=== PATIENT | male | born 1930 | race Caucasian/White ===

== ENCOUNTER 2016-10-09 09:18 | Emergency (ER) | payer MEDICARE ==
[2016-10-09 10:05] LABS: Hematocrit 41 % (42-52); Hemoglobin 14.2 g/dl (14.0-18.0); Mean Corpuscular HGB Conc 34 g/dl (31-36); Mean Corpuscular Hemoglobin 30 pg (27-31); Mean Corpuscular Volume 88 fL (80-94); Mean Platelet Volume 9 um3 (7.4-10.4); Red Blood Count 4.72 10^6/ul (4.0-5.4); Red Cell Distribution Width 14 % (10.5-15)
[2016-10-09] MEDS ORDERED: methylPREDNISolone 125 MG* 2 ML VIAL IV ONE (10:10)
[2016-10-09] MEDS ORDERED: Albuterol/Ipratropium NEB.SOL* Albuterol 2.5 MG/Ipratropium 0.5 MG 3 ML ONE (10:15)
[2016-10-09] MEDS: Albuterol/Ipratropium NEB.SOL* Albuterol 2.5 MG/Ipratropium 0.5 MG 3 ML INH PRN ×2 (10:22→10:36)
[2016-10-09 10:25] LABS: Troponin I 0.03 ng/mL (<0.04)
--- NOTE | 2016-10-09 10:33 | RAD ---
HISTORY: Shortness of breath COMPARISONS: December 03, 2015 VIEWS: 2: Frontal dual-energy and lateral views of the chest. FINDINGS: CARDIOMEDIASTINAL SILHOUETTE: The cardiomediastinal silhouette is normal. LINNEA: The linnea are normal. PLEURA: The costophrenic angles are sharp. No pleural abnormalities are noted. LUNG PARENCHYMA: The lungs are clear. ABDOMEN: The upper abdomen is clear. There is no subphrenic gas. BONES AND SOFT TISSUES: Degenerative changes are noted along the spine. OTHER: None. IMPRESSION: NO ACTIVE CARDIOPULMONARY DISEASE.
[2016-10-09 11:57] LABS: Albumin 3.7 g/dL (3.2-5.2); BUN/Creatinine Ratio 13.9 (8-20); Calcium 9.1 mg/dL (8.6-10.3); EGFR African American 78.1 (>60); EGFR Non-African American 60.7 (>60); Globulin 2.5 g/dL (2-4); Potassium 3.8 mmol/L (3.5-5.0); Total Bilirubin 0.6 mg/dL (0.2-1.0); Total Protein 6.2 g/dL (6.4-8.9)
[2016-10-09 12:26] VITALS: BP 162/75
--- NOTE | 2016-10-09 16:07 | ED ---
Anastasiia Cadet Adam, scribed for Franky Malin MD on 10/09/16 at 1009 . Shortness of Breath - HPI Summary HPI Summary: An 85 y/o male presents to the ED c/o SOB that started yesterday and has gotten progressively worse today. Patient also has a productive cough with white/ yellow sputum. He states he used his albuterol with no alleviation. The SOB is aggravated by exertion but he is still wheezing at rest. Patient has been admitted to the hospital in the past for similar symptoms. His PMHx includes CAD , diabetes, and COPD. FHx is positive for cardiac disease. - History of Current Complaint Chief Complaint: EDRespiratoryDistress Hx Obtained From: Patient, Family/Military Person[employer] Specialist - Onset/Duration: Sudden Onset, Lasting Days - Started yesterday Current Severity: Moderate Dyspnea At: Exertion Aggrevating Factors: Movement, Recumbent Position Alleviating Factors: Nothing Associated Signs & Symptoms: Cough (Productive), Wheezing - Risk Factors Cardiac: CAD, Diabetes - Allergy/Home Medications Allergies/Adverse Reactions: Allergies Allergy/AdvReac Type Severity Reaction Status Date / Time Captopril Allergy Coughing Verified 12/03/15 07:41 Flavocoxid [From Limbrel] Allergy Swelling Verified 12/03/15 07:41 Of Face,Lips,& Throat Pregabalin [From Lyrica] Allergy See Comment Verified 12/03/15 07:41 Tunafish Allergy Swelling Uncoded 12/03/15 07:41 Of Face,Lips,& Throat Home Medications: Home Medications Hydrocortisone 2.5% CREAM(NF) 1 applic TOPICAL BID 10/09/16 [History Confirmed 10/09/16] glipiZIDE TAB.XL* [Glucotrol XL*] 2.5 mg PO DAILY 10/09/16 [History Confirmed ] PMH/Surg Hx/FS Hx/Imm Hx Endocrine/Hematology History: Reports: Hx Anticoagulant Therapy, Hx Diabetes Denies: Hx Anemia Cardiovascular History: Reports: Hx Angina, Hx Coronary Artery Disease, Hx Hypercholesterolemia, Hx Hypertension, Hx Myocardial Infarction, 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 Denies: Hx Congestive Heart Failure Respiratory History: Reports: Hx Asthma, Hx Chronic Obstructive Pulmonary Disease (COPD), Hx Pneumonia, Other Respiratory Problems/Disorders - PNEUMONIA History: Reports: Other Problems/Disorders - Prostate CA Denies: Hx Renal Disease Musculoskeletal History: Reports: Hx Arthritis - HIPS/ HANDS Sensory History: Reports: Hx Cataracts, Hx Contacts or Glasses, Hx Hearing Aid, Hx Hearing Problem, Other Sensory Impairments Denies: Hx Glaucoma, Hx Legally Blind, Hx Macular Degeneration, Hx Vision Problem Opthamlomology History: Reports: Hx Cataracts, Hx Contacts or Glasses, Other Sensory Impairments Denies: Hx Glaucoma, Hx Legally Blind, Hx Macular Degeneration, Hx Vision Problem - Cancer History Cancer Type, 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 1971 RUPTURED APPENDIX [place]. 2003 2 CARDIAC STENTS [place]. 2004 PROSTATE [facility] [place]. 2007 BILATERAL TUBES IN EARS [facility] [place] Hx Anesthesia Reactions: No Infectious Disease History: No Infectious Disease History: Denies: Hx Clostridium Difficile, Hx Hepatitis, Hx Human Immunodeficiency Virus (HIV), Hx of Known/Suspected MRSA, Hx Shingles, Hx Tuberculosis, Hx Known/ Suspected VRE, Hx Known/Suspected VRSA, Traveled Outside the [place] in Last 30 Days - Family History Known Family History: Positive: Cardiac Disease - Social History Occupation: Retired Alcohol Use: None Substance Use Type: Reports: None Hx Tobacco Use: Yes Smoking Status (MU): Former Smoker Type: Cigarettes Have You Smoked in the Last Year: No Review of Systems Constitutional: Negative Negative: Fever, Chills Eyes: Negative Negative: Erythema ENT: Negative Negative: Sore Throat Cardiovascular: Negative Negative: Chest Pain Positive: Shortness Of Breath, Cough - White/yellow sputum Gastrointestinal: Negative Negative: Abdominal Pain, Vomiting, Nausea Genitourinary: Negative Negative: dysuria, hematuria Musculoskeletal: Negative Negative: Myalgia Skin: Negative Negative: Rash Neurological: Negative, Other - Negative: Dizziness Psychological: Normal All Other Systems Reviewed And Are Negative: Yes Physical Exam - Summary Physical Exam Summary: Constitutional: Well-developed, Well-nourished, Alert. (-) Distressed Skin: Warm, Dry HENT: Normocephalic; Atraumatic Eyes: Conjunctiva normal Neck: Musculoskeletal ROM normal neck. (-) JVD, (-) Stridor, (-) Tracheal deviation Cardio: Rhythm regular, rate normal, Heart sounds normal; Intact distal pulses; The pedal pulses are 2+ and symmetric. Radial pulses are 2+ and symmetric. (-) Murmur Pulmonary/Chest wall: Effort normal. (-) Respiratory distress, Expiratory wheezes, (-) Rales Abd: Soft, (-) Tenderness, (-) Distension, (-) Guarding, (-) Rebound Musculoskeletal: (-) Edema Lymph: (-) Cervical adenopathy Neuro: Alert, Oriented x3 Psych: Mood and affect Normal Vital Signs On Initial Exam: Initial Vitals Temp Pulse Resp BP Pulse Ox 96.2 F 76 30 146/68 98 10/09/16 09:19 10/09/16 09:19 10/09/16 09:19 10/09/16 09:19 10/09/16 09:19 - [place] Coma Scale Coma Scale Total: 15 Diagnostics - Vital Signs Vital Signs Temp Pulse Resp BP Pulse Ox 10/09/16 09:40 74 95 10/09/16 09:39 152/82 10/09/16 09:19 96.2 F 76 30 146/68 98 - Laboratory Result Diagrams: 10/09/16 09:50 10/09/16 09:50 Lab Statement: Any lab studies that have been ordered have been reviewed, and results considered in the medical decision making process. - Radiology CXR Xray Interpretation: No Acute Changes Radiology Interpretation Completed By: Radiologist - EKG 09:30 Cardiac Rate: NL - 74 EKG Rhythm: Sinus Rhythm EKG Interpretation: RBBB. Prolonged MS-interval. No STEMI Re-Evaluation - Re-Evaluation First Eval Re-Evaluation Time: 11:50 Change: Improved Comment: Patient states breathing treatments were effective. Course/Dx - Course Assessment/Plan: pt ambulated well on pulse oximetry. He will be discharged home with COPD exacerbation. - Diagnoses Provider Diagnoses: COPD exacerbation Discharge - Discharge Plan Condition: Improved Disposition: HOME Prescriptions: Albuterol 2.5MG/3ML (0.083%)* [Ventolin 2.5 MG/3 ML NEB.FAVIAN*] 2.5 mg INH Q4H PRN #60 neb.favian PRN Reason: Cough predniSONE TAB* [Deltasone TAB*] 50 mg PO DAILY #5 tab Referrals: Ed Blevins MD [Primary Care Provider] - 2 Days Additional Instructions: Return to the emergency department for changing or worsening symptoms The documentation as recorded by the Anastasiia herman Adam accurately reflects the service I personally performed and the decisions made by me, Franky Malin MD.
== END 2016-10-09 12:46 | disposition home or self-care (01) ==
LOC: ED 09:18
DX: J44.1 Chronic obstructive pulmonary disease with (acute) exacerbation (principal); R06.02 Shortness of breath; Z87.891 Personal history of nicotine dependence; R05 Cough
CPT/HCPCS: 36415; 71020; 80053; 83605; 83880; 84484; 85025; 85610; 87040; 93005; 94640; 99283; A9270-GY; J2930

== ENCOUNTER 2016-10-11 16:56 | Inpatient (IN) | payer MEDICARE ==
[2016-10-11] MEDS ORDERED: NS 0.9% 1000 ML* 1,000 ML IV ONE (17:13)
[2016-10-11] MEDS ORDERED: Albuterol/Ipratropium NEB.SOL* Albuterol 2.5 MG/Ipratropium 0.5 MG 3 ML INH ONE (17:13)
[2016-10-11] MEDS ORDERED: methylPREDNISolone 125 MG* 2 ML VIAL IV ONE (17:13)
[2016-10-11 17:32] LABS: Hematocrit 34 % (42-52); Hemoglobin 11.2 g/dl (14.0-18.0); Mean Corpuscular HGB Conc 33 g/dl (31-36); Mean Corpuscular Hemoglobin 30 pg (27-31); Mean Corpuscular Volume 90 fL (80-94); Mean Platelet Volume 9 um3 (7.4-10.4); Red Blood Count 3.77 10^6/ul (4.0-5.4); Red Cell Distribution Width 15 % (10.5-15)
--- NOTE | 2016-10-11 17:44 | RAD ---
Indication: Shortness of breath. History of tobacco use and COPD. Cardiac disease with valvular disease. Comparison: October 09, 2016 chest radiograph and December 03, 2015 CT. Technique: Upright AP 1737 hours Report: No alveolar consolidation, focal pulmonary lesion, pleural effusion, pneumothorax. Accounting for AP technique the heart, pulmonary vasculature, and mediastinal contours are unremarkable. IMPRESSION: No evidence for pneumonia or pulmonary edema.
[2016-10-11 17:45] LABS: Albumin 3.3 g/dL (3.2-5.2); BUN/Creatinine Ratio 33.1 (8-20); C Reactive Protein 1.15 mg/L (< 5.00); Calcium 8.3 mg/dL (8.6-10.3); EGFR African American 58.4 (>60); EGFR Non-African American 45.4 (>60); Globulin 1.9 g/dL (2-4); Potassium 5.5 mmol/L (3.5-5.0); Total Bilirubin 0.4 mg/dL (0.2-1.0); Total Protein 5.2 g/dL (6.4-8.9); Troponin I 0.03 ng/mL (<0.04)
[2016-10-11 17:47] LABS: PCO2 Arterial 23 mmHg (35-45)
[2016-10-11] MEDS ORDERED: cefTRIAXone(*) 1 GM in NS 0.9% 50 ML* 50 ML IVPB ONE (17:51)
[2016-10-11] MEDS ORDERED: Azithromycin IV(*) 500 MG in NS 0.9% 250 ML* 250 ML IVPB ONE (17:52)
[2016-10-11] MEDS ORDERED: Insulin REGULAR(*) 1 UNITS UNIT IV PUSH ONE (17:56)
[2016-10-11] MEDS: NS 0.9% 1000 ML* 2,000 ML IV ONE ×2 (18:00→18:25)
[2016-10-11] MEDS ORDERED: Iodixanol* (CONTRAST) 320 MG/ML 100 ML SDV IV ONE (18:03)
--- NOTE | 2016-10-11 19:28 | RAD ---
INDICATION: Shortness of breath. Respiratory distress. Coronary artery disease. COMPARISON: October 11, 2016 chest radiograph and December 03, 2015 CT. TECHNIQUE: Multidetector CT images were obtained from the lung apices to the upper abdomen with 78 mL Omnipaque 300 IV contrast. Pulmonary angiogram protocol. Multiplanar reformation including with maximum intensity projection. REPORT: Respiratory motion artifact. Elevated lung volumes. Mild prominence of the interstitial markings. Areas of air trapping. Minimal basilar dependent atelectasis. 4 mm noncalcified nodule at the posterior segment of the RIGHT upper lobe adjacent to the hilum is grossly unchanged compared with the December 03, 2015 CT accounting for differences in slice selection. The nodule is new compared with a more remote CT of November 23, 2010. Negative for pleural effusion or pneumothorax. Negative for thoracic lymphadenopathy. Mild cardiomegaly. Negative for pericardial effusion. Coronary artery calcifications and multiple stents. Normal diameter thoracic aorta. Negative for dissection of the thoracic aorta. Mildly limited CT pulmonary angiogram due to motion artifact. No compelling filling defects are identified from the main to the segmental and subsegmental pulmonary arteries to indicate pulmonary embolism. Unremarkable Limited images through the upper abdomen. Negative for suspicious osseous lesions. IMPRESSION: 1. No evidence for pulmonary embolism or pneumonia. Stigmata of probable chronic obstructive pulmonary disease. 2. Mild cardiomegaly. No evidence for pulmonary edema. 3. 4 mm noncalcified nodule at the posterior segment of the RIGHT upper lobe while grossly unchanged compared with the December 03, 2015 exam is new compared with a more remote CT of November 23, 2010. Consider reassessment of this nodule with noncontrast CT in 12 months time.
--- NOTE | 2016-10-11 19:47 | HP ---
H&P (Free Text) History and Physical: PCP: Maverick Blevins MD Date/Time of Evaluation: 10/11/2015 194 CC: SOB HPI: Mr Simmons is an 85YO male HX COPD presenting with ~1week of increasing fatigue, cough, & SOB. He was treated at [facility] [place] [facility] 10/09/2016 with steroids and albuterol and discharged. He was doing reasonably well until this afternoon when his SOB worsened. He denies chest pain, N/V/D, F/C, sputum production with cough, palpitations, light-headedness, sweats, or other issues. Evaluation is notable for sepsis (tachycardia, tachypnea, leukocytosis) 2nd acute bronchitis and COPD exacerbation. PMedHx CAD/stent DM2 HTN HLD COPD prostate CA Allergies Captopril Allergy (Verified 12/03/15 07:41) Coughing Flavocoxid [From Limbrel] Allergy (Verified 12/03/15 07:41) Swelling Of Face,Lips,& Throat Pregabalin [From Lyrica] Allergy (Verified 12/03/15 07:41) See Comment tongue burning Tunafish Allergy (Uncoded 12/03/15 07:41) Swelling Of Face,Lips,& Throat Ambulatory Orders Calcium Carbonate CHEW TAB* [Tums*] 1,000 ml PO DAILY 09/04/12 Clopidogrel TAB* [Plavix TAB*] 75 mg PO QAM 09/04/12 Metoprolol Tartrate TAB* [Lopressor TAB*] 25 mg PO BID 09/04/12 Montelukast Sodium TAB* [Singulair TAB*] 10 mg PO QPM 09/04/12 Albuterol HFA INHALER* [Ventolin HFA Inhaler*] 2 puff INH Q6H PRN 11/15/13 Hydrochlorothiazide TAB* [Hydrodiuril TAB*] 25 mg PO DAILY 11/15/13 Irbesartan (NF) [Avapro (NF)] 150 mg PO DAILY 11/15/13 Aspirin EC Low Dose* [Ecotrin EC Low Dose*] 81 mg PO DAILY 12/15/14 Nitroglycerin TAB 0.4 MG* 0.4 mg SL Q5M PRN 12/15/14 Simvastatin TAB(NF) [Zocor 20 MG (NF)] 40 mg PO DAILY 12/15/14 Solifenacin(NF) [Vesicare(NF)] 5 mg PO DAILY 12/15/14 Beclomethasone 80 MCG MDI(NF) [Qvar 80 MCG MDI(NF)] 2 puff INH BID 01/24/15 Cholecalciferol TAB* [Vitamin D TAB*] 2,000 units PO DAILY 01/24/15 Diphenoxylat/Atrop 2.5-0.025M* [Lomotil TAB*] 1 tab PO DAILY PRN 01/24/15 Albuterol 2.5MG/3ML (0.083%)* [Ventolin 2.5 MG/3 ML NEB.FAVIAN*] 2.5 mg INH Q4H PRN #60 neb.favian 10/09/16 Hydrocortisone 2.5% CREAM(NF) 1 applic TOPICAL BID 10/09/16 glipiZIDE TAB.XL* [Glucotrol XL*] 2.5 mg PO DAILY 10/09/16 predniSONE TAB* [Deltasone TAB*] 50 mg PO DAILY #5 tab 10/09/16 PSurgHx cardiac stent x5 adult tympanostomy tubes adult circumcision tonsillectomy appendectomy TURP SocHx: former smoker w/ <15PYHX, denies alcohol and recreational drugs; lives with his ; full code status FamHx: reviewed, non-contributory ROS: as above, otherwise reviewed and all were negative Constitutional: NAD, normally developed, obese elderly white male vitals: Vital Signs Temp 37.0 C 10/11/16 17:27 Pulse 112 10/11/16 18:10 Resp 26 10/11/16 18:10 BP 98/43 10/11/16 17:27 Pulse Ox 100 10/11/16 18:10 Intake & Output 10/10/16 10/11/16 10/11/16 23:59 11:59 23:59 Intake Total 1302 Balance 1302 Weight 175 lb Intake: IV Fluids 1302 HEENM: atraumatic; sclera/conjunctiva: non-icteric/clear; hearing: moderately decreased, [place] hearing aides; oropharynx: clear, mucosa moist Neck: soft tissue: non-tender; thyroid: normal Pulmonary: diminished bilaterally w/ scant B end-expiratory wheeze, fair aeration, no accessory muscle use CV: RR/RR, normal S1S2, no jugular venous distention, 2+ B DP/PT, no edema Abdominal: soft, moderately distended, tympaninic, non-tender, no rebound/ guarding/rigidity, normoactive bowel sounds, no hepatosplenomegaly or masses, no costovertebral angle tenderness Musculoskeletal: general: grossly intact; gait: stable Integumental: normal appearance and texture Psychiatric orientation: AA&O to PPS affect: calm mood: cooperative eye contact: good content: reliable responses: timely insight: good Testing: Lab Results 10/11/16 10/11/16 10/11/16 Range/Units 17:05 17:05 17:05 WBC 17.0 H (3.5-10.8) 10^3/ul RBC 3.77 L (4.0-5.4) 10^6/ul Hgb 11.2 L (14.0-18.0) g/dl Hct 34 L (42-52) % MCV 90 (80-94) fL MCH 30 (27-31) pg MCHC 33 (31-36) g/dl RDW 15 (10.5-15) % Plt Count 302 (150-450) 10^3/ul MPV 9 (7.4-10.4) um3 Neut % (Auto) 88.5 H (38-83) % Lymph % (Auto) 7.1 L (25-47) % Kane % (Auto) 4.2 (1-9) % Eos % (Auto) 0 (0-6) % Baso % (Auto) 0.2 (0-2) % Absolute Neuts (auto) 15.1 H (1.5-7.7) 10^3/ul Absolute Lymphs (auto) 1.2 (1.0-4.8) 10^3/ul Absolute Monos (auto) 0.7 (0-0.8) 10^3/ul Absolute Eos (auto) 0 (0-0.6) 10^3/ul Absolute Basos (auto) 0 (0-0.2) 10^3/ul Absolute Nucleated RBC 0 10^3/ul Nucleated RBC % 0 INR (Anticoag Therapy) (0.89-1.11) ABG pH (7.35-7.45) ABG pCO2 (35-45) mmHg ABG pO2 (80-100) mmHg ABG HCO3 (19-31) mmol/L ABG O2 Saturation (95-98) % ABG Base Excess (-2.0-2.0) Sodium 129 L (133-145) mmol/L Potassium 5.5 H D (3.5-5.0) mmol/L Chloride 98 L (101-111) mmol/L Carbon Dioxide 17 L (22-32) mmol/L Anion Gap 14 H (2-11) mmol/L BUN 49 H (6-24) mg/dL Creatinine 1.48 H (0.67-1.17) mg/dL Est GFR ( Amer) 58.4 (>60) Est GFR (Non-Af Amer) 45.4 (>60) BUN/Creatinine Ratio 33.1 H (8-20) Glucose 491 H (70-100) mg/dL Lactic Acid 6.7 H* (0.5-2.0) mmol/L Calcium 8.3 L (8.6-10.3) mg/dL Total Bilirubin 0.40 (0.2-1.0) mg/dL AST 23 (13-39) U/L ALT 22 (7-52) U/L Alkaline Phosphatase 39 (34-104) U/L Troponin I 0.03 (<0.04) ng/mL C-Reactive Protein 1.15 (< 5.00) mg/L B-Natriuretic Peptide ( - 100) pg/mL Total Protein 5.2 L (6.4-8.9) g/dL Albumin 3.3 (3.2-5.2) g/dL Globulin 1.9 L (2-4) g/dL Albumin/Globulin Ratio 1.7 (1-3) 10/11/16 10/11/16 10/11/16 Range/Units 17:05 17:05 17:40 WBC (3.5-10.8) 10^3/ul RBC (4.0-5.4) 10^6/ul Hgb (14.0-18.0) g/dl Hct (42-52) % MCV (80-94) fL MCH (27-31) pg MCHC (31-36) g/dl RDW (10.5-15) % Plt Count (150-450) 10^3/ul MPV (7.4-10.4) um3 Neut % (Auto) (38-83) % Lymph % (Auto) (25-47) % Kane % (Auto) (1-9) % Eos % (Auto) (0-6) % Baso % (Auto) (0-2) % Absolute Neuts (auto) (1.5-7.7) 10^3/ul Absolute Lymphs (auto) (1.0-4.8) 10^3/ul Absolute Monos (auto) (0-0.8) 10^3/ul Absolute Eos (auto) (0-0.6) 10^3/ul Absolute Basos (auto) (0-0.2) 10^3/ul Absolute Nucleated RBC 10^3/ul Nucleated RBC % INR (Anticoag Therapy) 0.98 (0.89-1.11) ABG pH 7.40 (7.35-7.45) ABG pCO2 23 L (35-45) mmHg ABG pO2 77 L (80-100) mmHg ABG HCO3 17.9 L (19-31) mmol/L ABG O2 Saturation 97.5 (95-98) % ABG Base Excess -9.0 L (-2.0-2.0) Sodium (133-145) mmol/L Potassium (3.5-5.0) mmol/L Chloride (101-111) mmol/L Carbon Dioxide (22-32) mmol/L Anion Gap (2-11) mmol/L BUN (6-24) mg/dL Creatinine (0.67-1.17) mg/dL Est GFR ( Amer) (>60) Est GFR (Non-Af Amer) (>60) BUN/Creatinine Ratio (8-20) Glucose (70-100) mg/dL Lactic Acid (0.5-2.0) mmol/L Calcium (8.6-10.3) mg/dL Total Bilirubin (0.2-1.0) mg/dL AST (13-39) U/L ALT (7-52) U/L Alkaline Phosphatase (34-104) U/L Troponin I (<0.04) ng/mL C-Reactive Protein (< 5.00) mg/L B-Natriuretic Peptide 74 ( - 100) pg/mL Total Protein (6.4-8.9) g/dL Albumin (3.2-5.2) g/dL Globulin (2-4) g/dL Albumin/Globulin Ratio (1-3) ECG, personally reviewed: sinus tachycardia RBBB rate 116, no ischemia CXR, personally reviewed: IMPRESSION: No evidence for pneumonia or pulmonary edema. CTA chest, personally reviewed: IMPRESSION: 1. No evidence for pulmonary embolism or pneumonia. Stigmata of probable chronic obstructive pulmonary disease. 2. Mild cardiomegaly. No evidence for pulmonary edema. 3. 4 mm noncalcified nodule at the posterior segment of the RIGHT upper lobe while grossly unchanged compared with the December 03, 2015 exam is new compared with a more remote CT of November 23, 2010. Consider reassessment of this nodule with noncontrast CT in 12 months time. Impression: 85M presenting with severe sepsis 2nd acute bronchitis & COPD exacerbation DIAGNOSIS & PLAN Primary severe sepsis 2nd acute bronchitis & COPD exacerbation : IVFs : IV azithromycin & ceftriaxone : supplemental oxygen : albuterol nebs : mometasone/salmeterol : tiotropium : guaifenesin : continue montelukast : incentive spirometry : supportive care LELO, suspect pre-renal : IVFs, monitor Secondary CAD/stent : continue aspirin & clopidogrel DM2 : insulin carb ratio diet : correctional protocol : continue glipizide : check A1c HTN : continue irbesartan, & metoprolol : hold HCTZ HLD : continue simvastatin OAB : continue solifenacin Admission Rational: inpatient for sever DVTp: heparin SQ & SCDs Code Status: full HCP:
[2016-10-11] MEDS ORDERED: Ondansetron INJ* 2 MG/ML VIAL IV PRN (19:59)
[2016-10-11] MEDS ORDERED: Acetaminophen TAB* 325 MG PO PRN (19:59)
[2016-10-11] MEDS ORDERED: Melatonin (NF) 3 MG TAB PO PRN (19:59)
--- NOTE | 2016-10-11 20:48 | ED ---
Anastasiia Cadet Adam, scribed for Kevin Waldron MD on 10/11/16 at 1808 . Shortness of Breath - HPI Summary HPI Summary: An 85 y/o male presents to the ED c/o SOB that got worse yesterday with wheezing , tachypnea, and coughing (aggravated by exertion). Patient had difficulty sleeping last night and also has rhinorrhea, sore throat, and lower extremity edema. Per EMS, pt received 2 nebulizer treatments at home and they did not administer any more in the ambulance. He denies any CP. Patient was discharged on 10/09/16 from the ED with similar symptoms and a diagnosis of COPD exacerbation. PMHx includes CAD, COPD, DM, hyperlipidemia, and asthma. FHx is positive for cardiac disease. Pt is a former smoker. - History of Current Complaint Chief Complaint: EDShortnessOfBreath Time Seen by Provider: 10/11/16 16:59 Hx Obtained From: Patient, EMS Onset/Duration: Sudden Onset, Lasting Days - Yesterday Timing: Constant Current Severity: Moderate Dyspnea At: Exertion Aggrevating Factors: Movement Alleviating Factors: Nothing Associated Signs & Symptoms: Cough (Nonproductive), Wheezing, Nasal Congestion, Edema - Lower extremities Related History: Similar Episode - Seen in [facility] [place] ED for COPD exacerbation - Allergy/Home Medications Allergies/Adverse Reactions: Allergies Allergy/AdvReac Type Severity Reaction Status Date / Time Captopril Allergy Coughing Verified 12/03/15 07:41 Flavocoxid [From Limbrel] Allergy Swelling Verified 12/03/15 07:41 Of Face,Lips,& Throat Pregabalin [From Lyrica] Allergy See Comment Verified 12/03/15 07:41 [place] Allergy Swelling Uncoded 12/03/15 07:41 Of Face,Lips,& Throat PMH/Surg Hx/FS Hx/Imm Hx Endocrine/Hematology History: Reports: Hx Anticoagulant Therapy, Hx Diabetes Denies: Hx Anemia Cardiovascular History: Reports: Hx Angina, Hx Coronary Artery Disease, Hx Hypercholesterolemia, Hx Hypertension, Hx Myocardial Infarction, 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 Denies: Hx Congestive Heart Failure Respiratory History: Reports: Hx Asthma, Hx Chronic Obstructive Pulmonary Disease (COPD), Hx Pneumonia, Other Respiratory Problems/Disorders - PNEUMONIA History: Reports: Other Problems/Disorders - Prostate CA Denies: Hx Renal Disease Musculoskeletal History: Reports: Hx Arthritis - HIPS/ HANDS Sensory History: Reports: Hx Cataracts, Hx Contacts or Glasses, Hx Hearing Aid, Hx Hearing Problem, Other Sensory Impairments Denies: Hx Glaucoma, Hx Legally Blind, Hx Macular Degeneration, Hx Vision Problem Opthamlomology History: Reports: Hx Cataracts, Hx Contacts or Glasses, Other Sensory Impairments Denies: Hx Glaucoma, Hx Legally Blind, Hx Macular Degeneration, Hx Vision Problem - Cancer History Cancer Type, 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 1971 RUPTURED APPENDIX [facility]. 2003 2 CARDIAC STENTS [place]. 2004 PROSTATE [facility] [place]. 2007 BILATERAL TUBES IN EARS [facility] [place] Hx Anesthesia Reactions: No Infectious Disease History: No Infectious Disease History: Denies: Hx Clostridium Difficile, Hx Hepatitis, Hx Human Immunodeficiency Virus (HIV), Hx of Known/Suspected MRSA, Hx Shingles, Hx Tuberculosis, Hx Known/ Suspected VRE, Hx Known/Suspected VRSA, Traveled Outside the in Last 30 Days - Family History Known Family History: Positive: Cardiac Disease - Social History Alcohol Use: None Substance Use Type: Reports: None Hx Tobacco Use: Yes Smoking Status (MU): Former Smoker Type: Cigarettes Have You Smoked in the Last Year: No Review of Systems Constitutional: Negative Eyes: Negative ENT: Negative Cardiovascular: Negative Positive: Shortness Of Breath, Cough, Other - wheezing Gastrointestinal: Negative Genitourinary: Negative Positive: Edema - lower extremities Skin: Negative Neurological: Negative Psychological: Normal All Other Systems Reviewed And Are Negative: Yes Physical Exam - Summary Physical Exam Summary: The patient is well-nourished in no acute distress and in no acute pain. The skin is warm and dry and skin color reflects adequate perfusion. Decreased turgor. HEENT: Bilateral hearing aids present. The head is normocephalic and atraumatic. The pupils are equal and reactive. The conjunctivae are clear and without drainage. Nares are patent and without drainage. Mouth reveals moist mucous membranes and the throat is without erythema and exudate. The external ears are intact. The ear canals are patent and without drainage. The tympanic membranes are intact. Neck is supple with full range of motion and non-tender. There are no carotid bruits. There is no neck vein distension. Respiratory: Chest is non-tender. Lungs are clear to auscultation and breath sounds are symmetrical and equal. Tachypneic. Cardiovascular: Heart is tachycardic and regular. There is no murmur or rub auscultated. There is pitting edema in bilateral lower extremities and pulses are symmetrical and equal. Abdomen: The abdomen is soft and non-tender. There are normal bowel sounds heard in all four quadrants and there is no organomegaly palpated. Musculoskeletal: There is no back pain noted. Extremities are non-tender with full range of motion. There is good capillary refill. There is no peripheral edema or calf tenderness elicited. Neurological: Patient is alert and oriented to person, place and time. The patient has symmetrical motor strength in all four extremities. Cranial nerves are grossly intact. Deep tendon reflexes are symmetrical and equal in all four extremities. Psychiatric: The patient has an appropriate affect and does not exhibit any anxiety or depression. Vital Signs On Initial Exam: Initial Vitals Temp Pulse Resp BP Pulse Ox 97.8 F 112 30 113/63 99 10/11/16 17:09 10/11/16 17:09 10/11/16 17:09 10/11/16 17:09 10/11/16 17:09 - [place] Coma Scale Coma Scale Total: 15 Diagnostics - Vital Signs Vital Signs Temp Pulse Resp BP Pulse Ox 10/11/16 17:27 98.6 F 118 18 98/43 95 10/11/16 17:09 97.8 F 112 30 113/63 99 - Laboratory Lab Results: Lab Results 10/11/16 10/11/16 10/11/16 Range/Units 17:05 17:05 17:05 WBC 17.0 H (3.5-10.8) 10^3/ul RBC 3.77 L (4.0-5.4) 10^6/ul Hgb 11.2 L (14.0-18.0) g/dl Hct 34 L (42-52) % MCV 90 (80-94) fL MCH 30 (27-31) pg MCHC 33 (31-36) g/dl RDW 15 (10.5-15) % Plt Count 302 (150-450) 10^3/ul MPV 9 (7.4-10.4) um3 Neut % (Auto) 88.5 H (38-83) % Lymph % (Auto) 7.1 L (25-47) % Jasper % (Auto) 4.2 (1-9) % Eos % (Auto) 0 (0-6) % Baso % (Auto) 0.2 (0-2) % Absolute Neuts (auto) 15.1 H (1.5-7.7) 10^3/ul Absolute Lymphs (auto) 1.2 (1.0-4.8) 10^3/ul Absolute Monos (auto) 0.7 (0-0.8) 10^3/ul Absolute Eos (auto) 0 (0-0.6) 10^3/ul Absolute Basos (auto) 0 (0-0.2) 10^3/ul Absolute Nucleated RBC 0 10^3/ul Nucleated RBC % 0 INR (Anticoag Therapy) (0.89-1.11) ABG pH (7.35-7.45) ABG pCO2 (35-45) mmHg ABG pO2 (80-100) mmHg ABG HCO3 (19-31) mmol/L ABG O2 Saturation (95-98) % ABG Base Excess (-2.0-2.0) Sodium 129 L (133-145) mmol/L Potassium 5.5 H D (3.5-5.0) mmol/L Chloride 98 L (101-111) mmol/L Carbon Dioxide 17 L (22-32) mmol/L Anion Gap 14 H (2-11) mmol/L BUN 49 H (6-24) mg/dL Creatinine 1.48 H (0.67-1.17) mg/dL Est GFR ( Amer) 58.4 (>60) Est GFR (Non-Af Amer) 45.4 (>60) BUN/Creatinine Ratio 33.1 H (8-20) Glucose 491 H (70-100) mg/dL Lactic Acid 6.7 H* (0.5-2.0) mmol/L Calcium 8.3 L (8.6-10.3) mg/dL Total Bilirubin 0.40 (0.2-1.0) mg/dL AST 23 (13-39) U/L ALT 22 (7-52) U/L Alkaline Phosphatase 39 (34-104) U/L Troponin I 0.03 (<0.04) ng/mL C-Reactive Protein 1.15 (< 5.00) mg/L B-Natriuretic Peptide ( - 100) pg/mL Total Protein 5.2 L (6.4-8.9) g/dL Albumin 3.3 (3.2-5.2) g/dL Globulin 1.9 L (2-4) g/dL Albumin/Globulin Ratio 1.7 (1-3) 10/11/16 10/11/16 10/11/16 Range/Units 17:05 17:05 17:40 WBC (3.5-10.8) 10^3/ul RBC (4.0-5.4) 10^6/ul Hgb (14.0-18.0) g/dl Hct (42-52) % MCV (80-94) fL MCH (27-31) pg MCHC (31-36) g/dl RDW (10.5-15) % Plt Count (150-450) 10^3/ul MPV (7.4-10.4) um3 Neut % (Auto) (38-83) % Lymph % (Auto) (25-47) % Jasper % (Auto) (1-9) % Eos % (Auto) (0-6) % Baso % (Auto) (0-2) % Absolute Neuts (auto) (1.5-7.7) 10^3/ul Absolute Lymphs (auto) (1.0-4.8) 10^3/ul Absolute Monos (auto) (0-0.8) 10^3/ul Absolute Eos (auto) (0-0.6) 10^3/ul Absolute Basos (auto) (0-0.2) 10^3/ul Absolute Nucleated RBC 10^3/ul Nucleated RBC % INR (Anticoag Therapy) 0.98 (0.89-1.11) ABG pH 7.40 (7.35-7.45) ABG pCO2 23 L (35-45) mmHg ABG pO2 77 L (80-100) mmHg ABG HCO3 17.9 L (19-31) mmol/L ABG O2 Saturation 97.5 (95-98) % ABG Base Excess -9.0 L (-2.0-2.0) Sodium (133-145) mmol/L Potassium (3.5-5.0) mmol/L Chloride (101-111) mmol/L Carbon Dioxide (22-32) mmol/L Anion Gap (2-11) mmol/L BUN (6-24) mg/dL Creatinine (0.67-1.17) mg/dL Est GFR ( Amer) (>60) Est GFR (Non-Af Amer) (>60) BUN/Creatinine Ratio (8-20) Glucose (70-100) mg/dL Lactic Acid (0.5-2.0) mmol/L Calcium (8.6-10.3) mg/dL Total Bilirubin (0.2-1.0) mg/dL AST (13-39) U/L ALT (7-52) U/L Alkaline Phosphatase (34-104) U/L Troponin I (<0.04) ng/mL C-Reactive Protein (< 5.00) mg/L B-Natriuretic Peptide 74 ( - 100) pg/mL Total Protein (6.4-8.9) g/dL Albumin (3.2-5.2) g/dL Globulin (2-4) g/dL Albumin/Globulin Ratio (1-3) Result Diagrams: 10/11/16 17:05 10/11/16 17:05 Lab Statement: Any lab studies that have been ordered have been reviewed, and results considered in the medical decision making process. - Radiology CXR Xray Interpretation: No Acute Changes Radiology Interpretation Completed By: Radiologist - CT Chest CTA CT Interpretation: No Acute Changes - 1. No evidence for pulmonary embolism or pneumonia. Stigmata of probable chronic obstructive pulmonary disease. 2. Mild cardiomegaly. No evidence for pulmonary edema. 3. 4 mm noncalcified nodule at the posterior segment of the RIGHT upper lobe while grossly unchanged compared with the December 03, 2015 exam is new compared with a more remote CT of November 23, 2010. Consider reassessment of this nodule with noncontrast CT in [address] Interpretation Completed By: Radiologist - EKG 17:14 Cardiac Rate: Tachycardia - 116 EKG Rhythm: Sinus Tachycardia EKG Interpretation: RBBB, Old inferior OK, poor r-wave progression Re-Evaluation - Re-Evaluation First Eval Re-Evaluation Time: 19:00 Change: Worse Comment: Patient wheezing, sob with retractions, tachycardic, tachypneic. Pending CTA read. Course/Dx - Diagnoses Differential Diagnosis/HQI/PQRI: Positive: Bronchitis, CHF, COPD Exacerbation, Pneumonia, Pulmonary Embolism Provider Diagnoses: Acute dyspnea, Dehydration, COPD exacerbation Discharge - Discharge Plan Condition: Stable Disposition: ADMITTED TO [facility] documentation as recorded by the Anastasiia herman Adam accurately reflects the service I personally performed and the decisions made by , Kevin Waldron MD.
[2016-10-11] MEDS ORDERED: Metoprolol Tartrate TAB* 25 MG PO SCH (21:00)
[2016-10-11] MEDS ORDERED: Docusate CAP* 100 MG PO SCH (21:00)
[2016-10-11] MEDS ORDERED: Insulin LISPRO* 1 UNITS UNIT SUBCUT SCH (21:00)
[2016-10-11] MEDS ORDERED: guaiFENesin ER TAB 600 MG PO SCH (21:00)
[2016-10-11 22:06] LABS: BUN/Creatinine Ratio 39.7 (8-20); Calcium 7.1 mg/dL (8.6-10.3); EGFR African American 67.2 (>60); EGFR Non-African American 52.3 (>60); Potassium 4.7 mmol/L (3.5-5.0)
[2016-10-11] MEDS ORDERED: LORazepam INJ* 2 MG/ML 1 ML VIAL ONE (22:22)
[2016-10-11] MEDS: NS 0.9% 1000 ML* 1,000 ML IV SCH (22:33)
[2016-10-11] MEDS ORDERED: Haloperidol INJ IV/IM* 5 MG/ML AMP ONE ×2 (22:44→23:49)
[2016-10-11] MEDS ORDERED: NS 0.9% 1000 ML* 1,000 ML IV SCH (22:45)
[2016-10-11] MEDS: Mometasone/Formoter 200/5 MDI INH SCH (23:09)
[2016-10-11] MEDS ORDERED: Haloperidol INJ IV/IM* 5 MG/ML AMP IM ONE (23:37)
[2016-10-12] MEDS ORDERED: Pantoprazole IV* 40 MG IV ONE
[2016-10-12 00:12] LABS: Hematocrit 25 % (42-52); Hemoglobin 7.8 g/dl (14.0-18.0); Mean Corpuscular HGB Conc 32 g/dl (31-36); Mean Corpuscular Hemoglobin 29 pg (27-31); Mean Corpuscular Volume 93 fL (80-94); Mean Platelet Volume 9 um3 (7.4-10.4); Red Blood Count 2.65 10^6/ul (4.0-5.4); Red Cell Distribution Width 15 % (10.5-15); White Blood Count 12.9 10^3/ul (3.5-10.8)
[2016-10-12] MEDS: Pantoprazole IV* 80 MG in NS 0.9% 250 ML* 250 ML IVPB SCH ×2 (00:14→15:00)
[2016-10-12] MEDS ORDERED: DEXMEDETOMIDINE ONE (00:28)
[2016-10-12] MEDS: Dexmedetomidine* 50 ML IVPB SCH ×5 (00:30→23:57)
[2016-10-12] MEDS: Albuterol 2.5 MG/3 ML NEB.SOL* (0.083%) INH SCH ×2 (00:45→08:21)
[2016-10-12] MEDS ORDERED: Iodixanol* (CONTRAST) 320 MG/ML 100 ML SDV IV ONE (00:49)
--- NOTE | 2016-10-12 02:45 | PN ---
Progress Note - Progress Note Note: After arrival to ICU, Mr Simmons had a large loose melanotic stool. He became much more agitated and received a total of 0.5mg lorazepam IV and 15mg haloperidol. He was unable to give additional information, but his abdominal exam had objectively become significantly tender. He was started on pantoprazole bolus & GTT. A CT abd/pel w/ IV contrast was obtained and read as negative. His lactic acid increased from 6 to 10 after 4L IVFs. HGB dropped from 11 to 7 and 2units pRBCs are ordered. Case was discussed with Abdelrahman Troy MD surgery who agreed to evaluate after the conclusion of his current case.
[2016-10-12] MEDS ORDERED: Piperac/Tazob 3.375 gm in NS* 3.375 GM/100 ML BAG IVPB ONE (03:00)
[2016-10-12] MEDS ORDERED: NS 0.9% 1000 ML* 1,000 ML IV ONE (03:00)
[2016-10-12] MEDS ORDERED: NS 0.9% 500 ML* 500 ML IV ONE (04:00)
[2016-10-12] MEDS: Insulin LISPRO* 1 UNITS UNIT SUBCUT SCH ×6 (04:03→22:27)
[2016-10-12 05:38] LABS: Urine Bilirubin Negative (Negative); Urine Glucose 3+(>=500 mg/dL) (Negative); Urine Nitrite Negative (Negative)
[2016-10-12 05:49] LABS: BUN/Creatinine Ratio 45.3 (8-20); Calcium 6.7 mg/dL (8.6-10.3); EGFR African American 62.8 (>60); EGFR Non-African American 48.8 (>60); Potassium 4.2 mmol/L (3.5-5.0)
[2016-10-12] MEDS ORDERED: CMCS Pantoprazole TAB (NF) 40 MG TAB PO SCH (06:00)
[2016-10-12] MEDS ORDERED: Heparin VIAL(*) 5000 UNITS/ML VIAL (FIVE THOUSAND) SUBCUT SCH (06:00)
--- NOTE | 2016-10-12 07:40 | RAD ---
CLINICAL HISTORY: Melena, sepsis COMPARISON: September 07, 2014 TECHNIQUE: Multiple contiguous axial CT scans were obtained of the abdomen and pelvis after the administration of intravenous contrast. Coronal and sagittal multiplanar reformations are submitted for review. Oral contrast was administered. Delayed images were obtained through the abdomen FINDINGS: Evaluation limited by patient breathing motion artifact and by arm positioning. LUNG BASES: The lung bases are clear. LIVER: The liver is diffusely low in attenuation compared to the spleen. There are no focal hepatic parenchymal masses. BILE DUCTS: There is no intrahepatic or extrahepatic biliary dilatation. GALLBLADDER: The gallbladder is not well visualized secondary to patient breathing motion artifact. PANCREAS: The pancreas is normal, without mass or ductal dilatation. SPLEEN: Normal in size and appearance. UPPER GI TRACT: Evaluation of the gastrointestinal tract is limited by incomplete gastric distention. The upper GI tract is unremarkable. SMALL BOWEL AND MESENTERY: The small bowel is normal in contour, course, and caliber. There is no obstruction or dilatation. COLON: There are multiple diverticula of the sigmoid colon. There is no pericolonic inflammatory change. ADRENALS: Normal bilaterally. KIDNEYS: Simple renal cyst is noted. There is no appreciable hydronephrosis or nephrolithiasis. BLADDER: The bladder is collapsed around a Gonzales catheter PELVIC ORGANS: The pelvic organs are not visualized. AORTA: There is calcific atherosclerotic disease of the abdominal aorta and its branches, without aneurysmal dilatation IVC: Unremarkable LYMPH NODES: There is no lymphadenopathy by size criteria. ABDOMINAL WALL: There is no evidence for abdominal wall hernia. BONES AND SOFT TISSUES: Degenerative changes are noted of the spine OTHER: None IMPRESSION: 1. LIMITED STUDY. 2. DIVERTICULOSIS. 3. FATTY INFILTRATION OF THE LIVER.
[2016-10-12] MEDS: NS 0.9% 1000 ML* 1,000 ML IV SCH (07:54)
--- NOTE | 2016-10-12 08:33 | PN ---
Subjective Date of Service: 10/12/16 Interval History: Pt is unable to tell me how he is feeling. He is on precedex and was resting comfortably, the precedex dose was decreased when I was in the room as he had become mildly bradycardic and now he is restless. The only thing he says is "I want to sit up" and that was garbled. Objective Active Medications: Acetaminophen (Tylenol Tab*) 650 mg PO Q6H PRN PRN Reason: FEVER/PAIN Albuterol (Ventolin 2.5 Mg/3 Ml Neb.Shayla*) 2.5 mg INH Q2H PRN PRN Reason: SOB/WHEEZING Atorvastatin Calcium (Lipitor*) 20 mg PO DAILY LOS Device (Tiotropium Inhaler Device*) 1 each INH 0900 ONE Stop: 10/12/16 09:01 Sodium Chloride (Ns 0.9% 1000 Ml*) 1,000 mls @ 85 mls/hr IV PER RATE [facility] Last Admin: 10/12/16 07:54 Dose: 85 mls/hr Ceftriaxone Sodium 1,000 mg/ (Sodium Chloride) 50 mls @ 200 mls/hr IVPB Q24H LOS Azithromycin 500 mg/ Sodium (Chloride) 250 mls @ 250 mls/hr IVPB Q24H LOS Pantoprazole Sodium 80 mg/ (Sodium Chloride) 250 mls @ 25 mls/hr IVPB Q10H LOS Last Admin: 10/12/16 00:14 Dose: 25 mls/hr Dexmedetomidine HCl (Precedex*) 50 mls @ 3.969 mls/hr IVPB .(Initial Rate) LOS PRN Reason: 0.2 MCG/KG/HR Last Admin: 10/12/16 07:53 Dose: 10.4 mls/hr Piperacillin Sod/Tazobactam Sod (Zosyn 3.375 Gm In Ns Premix*) 3.375 gm in 100 mls @ 25 mls/hr IVPB Q8H LOS Insulin Glargine (Lantus(*)) 5 units SUBCUT Q24H LOS Insulin Human Lispro (Humalog*) 0 units SUBCUT Q4H LOS PRN Reason: Protocol Last Admin: 10/12/16 07:10 Dose: 12 units Methylprednisolone Sodium Succinate (Solu-Medrol*) 40 mg IV Q8H LOS Metoprolol Tartrate (Lopressor Tab*) 25 mg PO BID [facility] Mometasone Furoate/Formoterol Fumar (Dulera 200/5 Mdi*) 2 puff INH BID LOS Last Admin: 10/11/16 23:09 Dose: Not Given Montelukast Sodium (Singulair Tab*) 10 mg PO QPM [facility] Ondansetron HCl (Zofran Inj*) 4 mg IV Q6H PRN PRN Reason: NAUSEA Vital Signs 10/11/16 10/11/16 10/11/16 20:00 20:04 20:15 Temperature Pulse Rate 116 115 Respiratory 22 33 24 Rate Blood Pressure 95/67 (mmHg) O2 Sat by Pulse 99 99 Oximetry 10/11/16 10/11/16 10/11/16 20:30 20:45 21:00 Temperature Pulse Rate 122 111 Respiratory 32 21 22 Rate Blood Pressure 125/78 90/77 (mmHg) O2 Sat by Pulse 99 95 Oximetry 10/11/16 10/11/16 10/11/16 21:15 21:27 21:30 Temperature Pulse Rate 107 123 121 Respiratory 30 31 23 Rate Blood Pressure 96/69 105/65 (mmHg) O2 Sat by Pulse 94 98 99 Oximetry 10/11/16 10/11/16 10/11/16 21:43 21:45 21:56 Temperature Pulse Rate 114 115 118 Respiratory 22 27 19 Rate Blood Pressure 104/66 (mmHg) O2 Sat by Pulse 94 96 98 Oximetry 10/11/16 10/11/16 10/11/16 22:00 22:15 22:30 Temperature 98.5 F Pulse Rate 124 120 122 Respiratory 32 27 23 Rate Blood Pressure 89/73 99/72 111/91 (mmHg) O2 Sat by Pulse 96 96 99 Oximetry 10/11/16 10/11/16 10/11/16 22:33 22:47 23:00 Temperature Pulse Rate 57 42 Respiratory 36 15 34 Rate Blood Pressure 121/72 90/67 (mmHg) O2 Sat by Pulse 72 97 Oximetry 10/11/16 10/11/16 10/11/16 23:02 23:15 23:20 Temperature Pulse Rate 96 Respiratory 22 Rate Blood Pressure 98/68 (mmHg) O2 Sat by Pulse 98 Oximetry 10/11/16 10/11/16 10/12/16 23:30 23:45 00:00 Temperature Pulse Rate 63 86 78 Respiratory 26 29 31 Rate Blood Pressure (mmHg) O2 Sat by Pulse 90 76 62 Oximetry 10/12/16 10/12/16 10/12/16 00:02 00:15 00:30 Temperature 97.7 F Pulse Rate 73 Respiratory 25 24 Rate Blood Pressure (mmHg) O2 Sat by Pulse 100 Oximetry 10/12/16 10/12/16 10/12/16 00:45 01:00 01:15 Temperature Pulse Rate 64 100 Respiratory 28 30 26 Rate Blood Pressure (mmHg) O2 Sat by Pulse 98 100 Oximetry 10/12/16 10/12/16 10/12/16 01:22 01:37 01:40 Temperature Pulse Rate 112 118 113 Respiratory 24 20 21 Rate Blood Pressure 73/42 103/57 (mmHg) O2 Sat by Pulse 100 96 87 Oximetry 10/12/16 10/12/16 10/12/16 01:45 02:00 02:34 Temperature Pulse Rate 88 82 Respiratory 23 28 22 Rate Blood Pressure 85/43 87/51 (mmHg) O2 Sat by Pulse 89 100 Oximetry 10/12/16 10/12/16 10/12/16 02:40 02:45 02:50 Temperature Pulse Rate 86 80 80 Respiratory 24 24 23 Rate Blood Pressure 61/38 74/47 (mmHg) O2 Sat by Pulse 100 100 100 Oximetry 10/12/16 10/12/16 10/12/16 03:00 03:11 03:29 Temperature Pulse Rate 78 75 73 Respiratory 22 22 23 Rate Blood Pressure 68/42 69/31 75/48 (mmHg) O2 Sat by Pulse 100 100 100 Oximetry 10/12/16 10/12/16 10/12/16 03:51 04:00 05:00 Temperature 97.8 F Pulse Rate 53 68 Respiratory 24 19 Rate Blood Pressure 99/57 87/46 (mmHg) O2 Sat by Pulse 100 100 Oximetry 10/12/16 10/12/16 10/12/16 05:44 05:52 05:57 Temperature Pulse Rate 66 64 76 Respiratory 17 18 19 Rate Blood Pressure 76/52 73/47 104/67 (mmHg) O2 Sat by Pulse 100 100 100 Oximetry 10/12/16 10/12/16 10/12/16 06:00 07:41 08:22 Temperature 96.5 F Pulse Rate 84 64 Respiratory 18 17 Rate Blood Pressure 107/63 (mmHg) O2 Sat by Pulse 100 100 Oximetry Oxygen Devices in Use Now: Simple Face Mask - 4L-100% Appearance: Elderly male lying in bed, NAD Eyes: No Scleral Icterus Ears/Nose/Mouth/Throat: - - dry tongue Respiratory: Symmetrical Chest Expansion and Respiratory Effort, Clear to Auscultation - anteriorly and at the lateral bases Cardiovascular: NL Sounds; No Murmurs; No JVD, RRR, No Edema Abdominal: - - BS hypoactive, soft, ND, unable to tell if pt has pain to palpation Extremities: No Clubbing, Cyanosis Skin: No Nodules or Sclerosis, - - scattered bruises noted on arms/legs, small skin tear R anterior rock Neurological: - - arousable to touch and loud voice Result Diagrams: 10/11/16 23:32 10/12/16 05:23 Additional Lab and Data: Lab Results 10/11/16 10/11/16 10/11/16 Range/Units 17:05 17:05 17:05 WBC 17.0 H (3.5-10.8) 10^3/ul RBC 3.77 L (4.0-5.4) 10^6/ul Hgb 11.2 L (14.0-18.0) g/dl Hct 34 L (42-52) % MCV 90 (80-94) fL MCH 30 (27-31) pg MCHC 33 (31-36) g/dl RDW 15 (10.5-15) % Plt Count 302 (150-450) 10^3/ul MPV 9 (7.4-10.4) um3 Neut % (Auto) 88.5 H (38-83) % Lymph % (Auto) 7.1 L (25-47) % Rolette % (Auto) 4.2 (1-9) % Eos % (Auto) 0 (0-6) % Baso % (Auto) 0.2 (0-2) % Absolute Neuts (auto) 15.1 H (1.5-7.7) 10^3/ul Absolute Lymphs (auto) 1.2 (1.0-4.8) 10^3/ul Absolute Monos (auto) 0.7 (0-0.8) 10^3/ul Absolute Eos (auto) 0 (0-0.6) 10^3/ul Absolute Basos (auto) 0 (0-0.2) 10^3/ul Absolute Nucleated RBC 0 10^3/ul Nucleated RBC % 0 INR (Anticoag Therapy) (0.89-1.11) ABG pH (7.35-7.45) ABG pCO2 (35-45) mmHg ABG pO2 (80-100) mmHg ABG HCO3 (19-31) mmol/L ABG O2 Saturation (95-98) % ABG Base Excess (-2.0-2.0) Sodium 129 L (133-145) mmol/L Potassium 5.5 H D (3.5-5.0) mmol/L Chloride 98 L (101-111) mmol/L Carbon Dioxide 17 L (22-32) mmol/L Anion Gap 14 H (2-11) mmol/L BUN 49 H (6-24) mg/dL Creatinine 1.48 H (0.67-1.17) mg/dL Est GFR ( Amer) 58.4 (>60) Est GFR (Non-Af Amer) 45.4 (>60) BUN/Creatinine Ratio 33.1 H (8-20) Glucose 491 H (70-100) mg/dL Lactic Acid 6.7 H* (0.5-2.0) mmol/L Calcium 8.3 L (8.6-10.3) mg/dL Total Bilirubin 0.40 (0.2-1.0) mg/dL AST 23 (13-39) U/L ALT 22 (7-52) U/L Alkaline Phosphatase 39 (34-104) U/L Troponin I 0.03 (<0.04) ng/mL C-Reactive Protein 1.15 (< 5.00) mg/L B-Natriuretic Peptide ( - 100) pg/mL Total Protein 5.2 L (6.4-8.9) g/dL Albumin 3.3 (3.2-5.2) g/dL Globulin 1.9 L (2-4) g/dL Albumin/Globulin Ratio 1.7 (1-3) 10/11/16 10/11/16 10/11/16 Range/Units 17:05 17:05 17:40 WBC (3.5-10.8) 10^3/ul RBC (4.0-5.4) 10^6/ul Hgb (14.0-18.0) g/dl Hct (42-52) % MCV (80-94) fL MCH (27-31) pg MCHC (31-36) g/dl RDW (10.5-15) % Plt Count (150-450) 10^3/ul MPV (7.4-10.4) um3 Neut % (Auto) (38-83) % Lymph % (Auto) (25-47) % Rolette % (Auto) (1-9) % Eos % (Auto) (0-6) % Baso % (Auto) (0-2) % Absolute Neuts (auto) (1.5-7.7) 10^3/ul Absolute Lymphs (auto) (1.0-4.8) 10^3/ul Absolute Monos (auto) (0-0.8) 10^3/ul Absolute Eos (auto) (0-0.6) 10^3/ul Absolute Basos (auto) (0-0.2) 10^3/ul Absolute Nucleated RBC 10^3/ul Nucleated RBC % INR (Anticoag Therapy) 0.98 (0.89-1.11) ABG pH 7.40 (7.35-7.45) ABG pCO2 23 L (35-45) mmHg ABG pO2 77 L (80-100) mmHg ABG HCO3 17.9 L (19-31) mmol/L ABG O2 Saturation 97.5 (95-98) % ABG Base Excess -9.0 L (-2.0-2.0) Sodium (133-145) mmol/L Potassium (3.5-5.0) mmol/L Chloride (101-111) mmol/L Carbon Dioxide (22-32) mmol/L Anion Gap (2-11) mmol/L BUN (6-24) mg/dL Creatinine (0.67-1.17) mg/dL Est GFR ( Amer) (>60) Est GFR (Non-Af Amer) (>60) BUN/Creatinine Ratio (8-20) Glucose (70-100) mg/dL Lactic Acid (0.5-2.0) mmol/L Calcium (8.6-10.3) mg/dL Total Bilirubin (0.2-1.0) mg/dL AST (13-39) U/L ALT (7-52) U/L Alkaline Phosphatase (34-104) U/L Troponin I (<0.04) ng/mL C-Reactive Protein (< 5.00) mg/L B-Natriuretic Peptide 74 ( - 100) pg/mL Total Protein (6.4-8.9) g/dL Albumin (3.2-5.2) g/dL Globulin (2-4) g/dL Albumin/Globulin Ratio (1-3) Microbiology and Other Data: Microbiology 10/11/16 23:20 Stool Gross Appearance - Final Stool Stool Occult Blood ([facility]) - Final 10/11/16 21:15 Nasal Screen MRSA (PCR)([facility]) - Final Nasal Mrsa Negative 10/11/16 21:15 Influenza Types A,B Antigen ([facility]) - Final Nasopharyngeal Specimen received for Influenza A/B Molecular testing Assess/Plan/Problems-Billing Mr Simmons is an 85 yo M who has a h/o CAD, Type II DM, HTN, COPD and recent diagnosis of bronchitis who presented to the ER with c/o worsened SOB and appeared to be septic and was admitted for possible sepsis secondary to bronchitis however immediately after he arrived to the ICU he had a very large melanotic stool concerning for GI bleed. - Patient Problems (1) Upper GI bleed Current Visit: Yes Status: Acute Code(s): K92.2 - GASTROINTESTINAL HEMORRHAGE, UNSPECIFIED SNOMED Code(s): 04298370 Comment: The patient has now had several melanotic stools. The concern is for an upper GI bleed. Dr. Ramirez saw the patient early this AM and does not want to scope the patient today as he is hemodynamically unstable. Plan is to continue the protonix drip and do EGD likely tomorrow. The patient has received 1 unit PRBC this AM after his H/H dropped from 11.2/34 (already down from when it was 14.2/41) to 7.8/25. He was ordered a second unit of blood but the blood bank wanted to administer O+ blood (he is B-, this had been ok'ed by the pathologist) but the decision was made to recheck the H/H prior to administering the second unit of blood. (2) Acute blood loss anemia Current Visit: Yes Status: Acute Code(s): D62 - ACUTE POSTHEMORRHAGIC ANEMIA SNOMED Code(s): 090856947 Comment: The patient dropped his H/H significantly from admission to [place] last night. Follow up CBC is pending now. (3) Hypotension Current Visit: Yes Status: Acute Comment: BP has been soft his entire hospitalization. Will continue IVF and blood transfusions as necessary. Hold all antihypertensives for now. May need to consider pressors. (4) Agitation Current Visit: Yes Status: Acute Code(s): R45.1 - RESTLESSNESS AND AGITATION SNOMED Code(s): 78054560 Comment: The patient became severely agtiated overnight. He was aggressive towards staff and is now in restraints and on precedex after receiving several doses of haldol that did not help with his agitation. (5) Dyspnea Current Visit: Yes Status: Acute Code(s): R06.00 - DYSPNEA, UNSPECIFIED SNOMED Code(s): 531321876 Comment: The patient was diagnosed with bronchitis earlier this week and had been ok until yesterday afternoon when he became more SOB. His lung sounds are clear and CXR and CTA chest are negative for acute findings to account for his SOB. ? if related to GI bleed vs bronchitis. He was admitted for sepsis secondary to bronchitis as he was hypotensive and tachycardic and developed AMS. Will continue IV Abx (ceftriaxone and azithromycin) and steroids given his h/o COPD. (6) Type 2 diabetes mellitus Current Visit: Yes Status: Chronic Comment: Start lantus 5 units SQ daily as his sugars are uncontrolled currently. Continue lispro sliding scale and monitor the sugars q4hr. Hold glipizide. (7) Hypercholesteremia Current Visit: Yes Status: Chronic Code(s): E78.0 - PURE HYPERCHOLESTEROLEMIA * DO NOT USE * SNOMED Code(s): 47265166 Comment: Hold statin while pt's mental status is altered. (8) DVT prophylaxis Current Visit: Yes Status: Acute Code(s): TYO4943 - SNOMED Code(s): 259847821 Comment: SCDs only secondary to GI bleed (9) Full code status Current Visit: Yes Status: Acute Code(s): Z78.9 - OTHER SPECIFIED HEALTH STATUS SNOMED Code(s): 015731726
[2016-10-12] MEDS: Piperac/Tazob 3.375 gm in NS* 3.375 GM/100 ML BAG IVPB SCH ×3 (08:37→23:57)
[2016-10-12 09:00] LABS: Hematocrit 26 % (42-52); Hemoglobin 8.6 g/dl (14.0-18.0); Mean Corpuscular HGB Conc 33 g/dl (31-36); Mean Corpuscular Hemoglobin 30 pg (27-31); Mean Corpuscular Volume 92 fL (80-94); Mean Platelet Volume 9 um3 (7.4-10.4); Red Blood Count 2.88 10^6/ul (4.0-5.4); Red Cell Distribution Width 14 % (10.5-15); White Blood Count 10.5 10^3/ul (3.5-10.8)
[2016-10-12] MEDS ORDERED: Tiotropium CAP.INH* CAP.INH/18 MCG (USE ORDER SET !) INH SCH (09:00)
[2016-10-12] MEDS ORDERED: Losartan TAB* 25 MG PO SCH (09:00)
[2016-10-12] MEDS ORDERED: Calcium Carbonate CHEW TAB* 500 MG (TUMS) PO SCH (09:00)
[2016-10-12] MEDS ORDERED: Clopidogrel TAB* 75 MG PO SCH (09:00)
[2016-10-12] MEDS ORDERED: Aspirin EC Low Dose* 81 MG TAB.EC PO SCH (09:00)
[2016-10-12] MEDS ORDERED: CMCS Solifenacin(NF) 5 MG TAB PO SCH (09:00)
[2016-10-12] MEDS ORDERED: Spiriva Inhaler DEVICE* 1 EACH DEVICE INH ONE (09:00)
[2016-10-12] MEDS ORDERED: Hydrochlorothiazide TAB* 25 MG PO SCH (09:00)
[2016-10-12] MEDS ORDERED: Cholecalciferol TAB* 1000 UNITS PO SCH (09:00)
[2016-10-12] MEDS ORDERED: glipiZIDE TAB.XL* 2.5 MG PO SCH (09:00)
[2016-10-12] MEDS: Mometasone/Formoter 200/5 MDI INH SCH ×2 (09:43→21:30)
[2016-10-12] MEDS: Atorvastatin* 20 MG TAB PO SCH (09:59)
[2016-10-12] MEDS: Insulin GLARGINE(*) 1 UNITS UNIT SUBCUT SCH (10:00)
[2016-10-12] MEDS: methylPREDNISolone SOD 40 MG* 1 ML VIAL IV SCH ×2 (10:01→16:58)
[2016-10-12] MEDS: Metoprolol Tartrate TAB* 25 MG PO SCH ×2 (10:02→21:30)
[2016-10-12] MEDS: Haloperidol INJ IV/IM* 5 MG/ML AMP IV SLOW PU PRN ×2 (10:55→21:11)
[2016-10-12 15:39] LABS: Hematocrit 24 % (42-52); Hemoglobin 8.1 g/dl (14.0-18.0)
[2016-10-12] MEDS ORDERED: Pantoprazole IV* 40 MG ONE (16:24)
[2016-10-12] MEDS: cefTRIAXone VIAL(*) 1,000 MG in NS 0.9% 50 ML* 50 ML IVPB SCH ×2 (18:35→20:44)
[2016-10-12] MEDS: Montelukast Sodium TAB* 10 MG PO SCH (19:50)
[2016-10-12] MEDS ORDERED: Morphine INJ* 2 MG/ML 1 ML CARPUJECT ONE (20:08)
[2016-10-12] MEDS: Morphine INJ* 2 MG/ML 1 ML CARPUJECT IV PRN (20:10)
[2016-10-12] MEDS: Azithromycin IV(*) 500 MG in NS 0.9% 250 ML* 250 ML IVPB SCH (21:27)
[2016-10-12 21:32] LABS: Hematocrit 25 % (42-52); Hemoglobin 8.4 g/dl (14.0-18.0)
--- NOTE | 2016-10-12 22:29 | CONS ---
CC: Dr. Blevins CONSULTATION REPORT: DATE OF CONSULT: 10/12/15 REQUESTING PHYSICIAN: Robe Badillo MD INDICATION: Upper GI bleed. NARRATIVE: Mr. Simmons is an 85-year-old male with a history of coronary artery disease, diabetes, h ypertension, COPD, and prostate cancer, who was admitted yesterday with sepsis secondary to either b ronchitis or pneumonia. The patient was admitted to the intensive care unit. While in the intensiv e care unit, he began to have melena. The patient has been hypotensive and he dropped his hemoglobi n from 11.2 to 7.8. The patient is sedated and I am unable to obtain any history at all from him; h owever, history is obtained from the chart, the computer, and Dr. Badillo. Looking in the chart , it does not appear that he has ever had any GI bleeding in the past. He did have a colonoscopy or according to the nurses, he is due for colonoscopy in the next few months. He does take aspirin, P lavix, and he has been on prednisone. PAST MEDICAL HISTORY: Please see the HPI. PAST SURGICAL HISTORY: Include appendectomy, tonsillectomy, circumcision, cardiac stents x5. MEDICATIONS UPON ADMISSION: Include: 1. Plavix. 2. Metoprolol. 3. Singulair. 4. Ventolin. 5. Avapro. 6. Aspirin. 7. Zocor. 8. VESIcare. 9. QVAR. 10. Lomotil. 11. Prednisone. 12. Glucotrol. ALLERGIES: He is allergic to CAPTOPRIL, LIMBREL, LYRICA, and TUNA. FAMILY HISTORY: Unable to obtain from the the patient at this time. SOCIAL HISTORY: He quit smoking many years ago. No alcohol or IV drugs. REVIEW OF SYSTEMS: Unable to obtain from the patient at this time. PHYSICAL EXAM: Temperature is 96.5, blood pressure is 107/63, pulse is 85. General: A sedated danielle ent, lying flat in bed, slightly agitated and he is restrained with soft wrist restraints. HEENT: Dentition is poor. Mucous membranes are dry. Heart: Regular rate and rhythm. Lungs: Diffuse, co arse breath sounds bilaterally. Slight wheeze on expiration. Abdomen: Distended, soft, hypoactive bowel sounds. No rebound, no guarding, softly distended. Unable to determine whether or not he is tender to deep palpation throughout the abdomen due to his sedated state; however, there is no rebo und or guarding currently. Skin: Warm and dry. DIAGNOSTIC STUDIES/LAB DATA: Labs of note, white count went from 17 to 12.9, hemoglobin went from 1 1.2 to 7.8, platelet were 227, INR is 0.98. Sodium is 138, BUN went from 52 to 63, creatinine went from 1.31 to 1.39, lactic acid went from 10.[address] of the abdomen and pelvis shows diver ticulosis and fatty liver. He also has a CT angiogram from late last night, which shows no PE, card iomegaly. ASSESSMENT AND PLAN: This is an 85-year-old gentleman admitted for respiratory sepsis, now is likel y having an upper GI bleed. He has been having melena, decreased hemoglobin, and increased BUN like ly he is bleeding from the upper gastrointestinal tract secondary to his aspirin, Plavix, and steroi ds. Currently, he is agitated and sedated. Primary team is aggressively treating him for his sepsi s and for his upper GI bleed. He is on IV Protonix. He is receiving blood and fluids. He is recei ving antibiotics for his sepsis. Once he is better resuscitated and more stable from a sepsis stand point, he will need an upper endoscopy. We will continue to follow along very closely and obviously aspirin and Plavix need to be held at this time. [id number]/[facility] #: [id number]
[2016-10-13] MEDS: Pantoprazole IV* 80 MG in NS 0.9% 250 ML* 250 ML IVPB SCH ×5 (00:58→22:47)
[2016-10-13] MEDS: methylPREDNISolone SOD 40 MG* 1 ML VIAL IV SCH ×3 (01:02→21:37)
[2016-10-13] MEDS: Insulin LISPRO* 1 UNITS UNIT SUBCUT SCH ×7 (01:45→22:34)
[2016-10-13] MEDS: Dexmedetomidine* 50 ML IVPB SCH ×3 (04:26→20:28)
[2016-10-13 06:02] LABS: Hematocrit 24 % (42-52); Hemoglobin 7.8 g/dl (14.0-18.0); Mean Corpuscular HGB Conc 33 g/dl (31-36); Mean Corpuscular Hemoglobin 29 pg (27-31); Mean Corpuscular Volume 89 fL (80-94); Mean Platelet Volume 8 um3 (7.4-10.4); Red Blood Count 2.67 10^6/ul (4.0-5.4); Red Cell Distribution Width 14 % (10.5-15); White Blood Count 11.2 10^3/ul (3.5-10.8)
[2016-10-13 06:15] LABS: BUN/Creatinine Ratio 46.7 (8-20); Calcium 7.4 mg/dL (8.6-10.3); EGFR African American 64.9 (>60); EGFR Non-African American 50.5 (>60); Potassium 3.5 mmol/L (3.5-5.0)
--- NOTE | 2016-10-13 07:48 | PN ---
Subjective Date of Service: 10/13/16 Interval History: Pt was agitated overnight. He pulled out an IV this AM. When I asked him if he had any pain he stated "a little." When asked where the pain was he moved his arms around as if he was going to point to where the pain was but he did not. Objective Active Medications: Acetaminophen (Tylenol Tab*) 650 mg PO Q6H PRN PRN Reason: FEVER/PAIN Albuterol (Ventolin 2.5 Mg/3 Ml Neb.Shayla*) 2.5 mg INH Q2H PRN PRN Reason: SOB/WHEEZING Atorvastatin Calcium (Lipitor*) 20 mg PO DAILY [facility] Last Admin: 10/12/16 09:59 Dose: Not Given Haloperidol Lactate (Haldol Inj Iv/Im*) 5 mg IV SLOW PU Q6H PRN PRN Reason: AGITATION Last Admin: 10/12/16 21:11 Dose: 5 mg Ceftriaxone Sodium 1,000 mg/ (Sodium Chloride) 50 mls @ 200 mls/hr IVPB Q24H [facility] Last Admin: 10/12/16 20:44 Dose: 200 mls/hr Azithromycin 500 mg/ Sodium (Chloride) 250 mls @ 250 mls/hr IVPB Q24H [facility] Last Admin: 10/12/16 21:27 Dose: 250 mls/hr Pantoprazole Sodium 80 mg/ (Sodium Chloride) 250 mls @ 25 mls/hr IVPB Q10H [facility] Last Admin: 10/13/16 05:36 Dose: Not Given Dexmedetomidine HCl (Precedex*) 50 mls @ 3.969 mls/hr IVPB .(Initial Rate) [facility] PRN Reason: 0.2 MCG/KG/HR Last Admin: 10/13/16 04:26 Dose: 10.4 mls/hr Piperacillin Sod/Tazobactam Sod (Zosyn 3.375 Gm In Ns Premix*) 3.375 gm in 100 mls @ 25 mls/hr IVPB Q8H [facility] Last Admin: 10/12/16 23:57 Dose: 25 mls/hr Insulin Glargine (Lantus(*)) 5 units SUBCUT Q24H [facility] Last Admin: 10/12/16 10:00 Dose: 5 units Insulin Human Lispro (Humalog*) 0 units SUBCUT Q4H [facility] PRN Reason: Protocol Last Admin: 10/13/16 05:44 Dose: 3 units Methylprednisolone Sodium Succinate (Solu-Medrol*) 40 mg IV Q8H [facility] Last Admin: 10/13/16 01:02 Dose: 40 mg Metoprolol Tartrate (Lopressor Tab*) 25 mg PO BID [facility] Last Admin: 10/12/16 21:30 Dose: Not Given Mometasone Furoate/Formoterol Fumar (Dulera 200/5 Mdi*) 2 puff INH BID [facility] Last Admin: 10/12/16 21:30 Dose: Not Given Montelukast Sodium (Singulair Tab*) 10 mg PO QPM [facility] Last Admin: 10/12/16 19:50 Dose: Not Given Morphine Sulfate (Morphine Inj (Syringe)*) 2 mg IV Q4H PRN PRN Reason: PAIN - MILD Last Admin: 10/12/16 20:10 Dose: 2 mg Ondansetron HCl (Zofran Inj*) 4 mg IV Q6H PRN PRN Reason: NAUSEA Vital Signs 10/12/16 10/12/16 10/12/16 07:41 08:00 08:22 Temperature 96.5 F Pulse Rate 57 64 Respiratory 18 17 Rate Blood Pressure 85/44 (mmHg) O2 Sat by Pulse 100 100 Oximetry 10/12/16 10/12/16 10/12/16 09:00 10:00 11:00 Temperature Pulse Rate 59 59 57 Respiratory 17 17 16 Rate Blood Pressure 81/44 86/46 89/48 (mmHg) O2 Sat by Pulse 99 100 100 Oximetry 10/12/16 10/12/16 10/12/16 12:00 12:15 13:00 Temperature 97.2 F Pulse Rate 32 62 Respiratory 17 21 Rate Blood Pressure 122/56 133/57 (mmHg) O2 Sat by Pulse 75 99 Oximetry 10/12/16 10/12/16 10/12/16 14:00 15:00 15:54 Temperature 97.7 F Pulse Rate 62 54 Respiratory 16 16 Rate Blood Pressure 105/49 89/52 (mmHg) O2 Sat by Pulse 99 98 Oximetry 10/12/16 10/12/16 10/12/16 16:00 17:00 18:00 Temperature Pulse Rate 74 78 80 Respiratory 20 21 10 Rate Blood Pressure 114/68 136/81 135/84 (mmHg) O2 Sat by Pulse 99 100 100 Oximetry 10/12/16 10/12/16 10/12/16 19:00 19:04 19:52 Temperature 98.6 F Pulse Rate 59 58 Respiratory 14 17 Rate Blood Pressure 81/56 84/48 (mmHg) O2 Sat by Pulse 93 93 Oximetry 10/12/16 10/12/16 10/12/16 20:00 20:10 21:00 Temperature Pulse Rate 91 Respiratory 20 24 20 Rate Blood Pressure 147/65 117/60 (mmHg) O2 Sat by Pulse 99 Oximetry 10/12/16 10/12/16 10/12/16 22:00 22:01 22:15 Temperature Pulse Rate 70 68 92 Respiratory 16 16 21 Rate Blood Pressure 85/54 92/60 (mmHg) O2 Sat by Pulse 94 94 100 Oximetry 10/12/16 10/12/16 10/13/16 23:00 23:42 00:00 Temperature 98.9 F Pulse Rate 84 100 Respiratory 17 27 Rate Blood Pressure 115/53 (mmHg) O2 Sat by Pulse 100 98 Oximetry 10/13/16 10/13/16 10/13/16 00:01 01:00 02:00 Temperature Pulse Rate 99 69 85 Respiratory 29 8 22 Rate Blood Pressure 127/60 101/46 136/58 (mmHg) O2 Sat by Pulse 97 97 99 Oximetry 10/13/16 10/13/16 10/13/16 03:00 04:00 04:02 Temperature 97.1 F Pulse Rate 70 60 Respiratory 17 18 Rate Blood Pressure 118/61 94/77 (mmHg) O2 Sat by Pulse 98 93 Oximetry 10/13/16 10/13/16 10/13/16 04:26 05:00 06:00 Temperature Pulse Rate 79 74 81 Respiratory 19 16 19 Rate Blood Pressure 112/87 128/57 (mmHg) O2 Sat by Pulse 97 96 97 Oximetry 10/13/16 10/13/16 07:00 07:24 Temperature 98.1 F Pulse Rate 87 Respiratory 23 Rate Blood Pressure (mmHg) O2 Sat by Pulse 98 Oximetry Oxygen Devices in Use Now: None - 98% Appearance: Elderly male lying in bed sleeping, awakens to voice, NAD Eyes: No Scleral Icterus Ears/Nose/Mouth/Throat: Mucous Membranes Moist Respiratory: Symmetrical Chest Expansion and Respiratory Effort, Clear to Auscultation Cardiovascular: NL Sounds; No Murmurs; No JVD, RRR, No Edema Abdominal: - - BS+ soft, mildly distended, pt jumps slightly when I palpate his RUQ Extremities: No Clubbing, Cyanosis Skin: No Rash or Ulcers, No Nodules or Sclerosis, - - scattered bruises on LE Neurological: - - confused, sleepy Result Diagrams: 10/13/16 05:53 10/13/16 05:53 Additional Lab and Data: Lab Results 10/11/16 10/11/16 10/11/16 Range/Units 17:05 17:05 17:05 WBC 17.0 H (3.5-10.8) 10^3/ul RBC 3.77 L (4.0-5.4) 10^6/ul Hgb 11.2 L (14.0-18.0) g/dl Hct 34 L (42-52) % MCV 90 (80-94) fL MCH 30 (27-31) pg MCHC 33 (31-36) g/dl RDW 15 (10.5-15) % Plt Count 302 (150-450) 10^3/ul MPV 9 (7.4-10.4) um3 Neut % (Auto) 88.5 H (38-83) % Lymph % (Auto) 7.1 L (25-47) % Evans % (Auto) 4.2 (1-9) % Eos % (Auto) 0 (0-6) % Baso % (Auto) 0.2 (0-2) % Absolute Neuts (auto) 15.1 H (1.5-7.7) 10^3/ul Absolute Lymphs (auto) 1.2 (1.0-4.8) 10^3/ul Absolute Monos (auto) 0.7 (0-0.8) 10^3/ul Absolute Eos (auto) 0 (0-0.6) 10^3/ul Absolute Basos (auto) 0 (0-0.2) 10^3/ul Absolute Nucleated RBC 0 10^3/ul Nucleated RBC % 0 INR (Anticoag Therapy) (0.89-1.11) ABG pH (7.35-7.45) ABG pCO2 (35-45) mmHg ABG pO2 (80-100) mmHg ABG HCO3 (19-31) mmol/L ABG O2 Saturation (95-98) % ABG Base Excess (-2.0-2.0) Sodium 129 L (133-145) mmol/L Potassium 5.5 H D (3.5-5.0) mmol/L Chloride 98 L (101-111) mmol/L Carbon Dioxide 17 L (22-32) mmol/L Anion Gap 14 H (2-11) mmol/L BUN 49 H (6-24) mg/dL Creatinine 1.48 H (0.67-1.17) mg/dL Est GFR ( Amer) 58.4 (>60) Est GFR (Non-Af Amer) 45.4 (>60) BUN/Creatinine Ratio 33.1 H (8-20) Glucose 491 H (70-100) mg/dL Lactic Acid 6.7 H* (0.5-2.0) mmol/L Calcium 8.3 L (8.6-10.3) mg/dL Total Bilirubin 0.40 (0.2-1.0) mg/dL AST 23 (13-39) U/L ALT 22 (7-52) U/L Alkaline Phosphatase 39 (34-104) U/L Troponin I 0.03 (<0.04) ng/mL C-Reactive Protein 1.15 (< 5.00) mg/L B-Natriuretic Peptide ( - 100) pg/mL Total Protein 5.2 L (6.4-8.9) g/dL Albumin 3.3 (3.2-5.2) g/dL Globulin 1.9 L (2-4) g/dL Albumin/Globulin Ratio 1.7 (1-3) 10/11/16 10/11/16 10/11/16 Range/Units 17:05 17:05 17:40 WBC (3.5-10.8) 10^3/ul RBC (4.0-5.4) 10^6/ul Hgb (14.0-18.0) g/dl Hct (42-52) % MCV (80-94) fL MCH (27-31) pg MCHC (31-36) g/dl RDW (10.5-15) % Plt Count (150-450) 10^3/ul MPV (7.4-10.4) um3 Neut % (Auto) (38-83) % Lymph % (Auto) (25-47) % Evans % (Auto) (1-9) % Eos % (Auto) (0-6) % Baso % (Auto) (0-2) % Absolute Neuts (auto) (1.5-7.7) 10^3/ul Absolute Lymphs (auto) (1.0-4.8) 10^3/ul Absolute Monos (auto) (0-0.8) 10^3/ul Absolute Eos (auto) (0-0.6) 10^3/ul Absolute Basos (auto) (0-0.2) 10^3/ul Absolute Nucleated RBC 10^3/ul Nucleated RBC % INR (Anticoag Therapy) 0.98 (0.89-1.11) ABG pH 7.40 (7.35-7.45) ABG pCO2 23 L (35-45) mmHg ABG pO2 77 L (80-100) mmHg ABG HCO3 17.9 L (19-31) mmol/L ABG O2 Saturation 97.5 (95-98) % ABG Base Excess -9.0 L (-2.0-2.0) Sodium (133-145) mmol/L Potassium (3.5-5.0) mmol/L Chloride (101-111) mmol/L Carbon Dioxide (22-32) mmol/L Anion Gap (2-11) mmol/L BUN (6-24) mg/dL Creatinine (0.67-1.17) mg/dL Est GFR ( Amer) (>60) Est GFR (Non-Af Amer) (>60) BUN/Creatinine Ratio (8-20) Glucose (70-100) mg/dL Lactic Acid (0.5-2.0) mmol/L Calcium (8.6-10.3) mg/dL Total Bilirubin (0.2-1.0) mg/dL AST (13-39) U/L ALT (7-52) U/L Alkaline Phosphatase (34-104) U/L Troponin I (<0.04) ng/mL C-Reactive Protein (< 5.00) mg/L B-Natriuretic Peptide 74 ( - 100) pg/mL Total Protein (6.4-8.9) g/dL Albumin (3.2-5.2) g/dL Globulin (2-4) g/dL Albumin/Globulin Ratio (1-3) Microbiology and Other Data: Microbiology 10/11/16 23:20 Stool Gross Appearance - Final Stool Stool Occult Blood ([facility]) - Final 10/11/16 21:15 Nasal Screen MRSA (PCR)([facility]) - Final Nasal Mrsa Negative 10/11/16 21:15 Influenza Types A,B Antigen ([facility]) - Final Nasopharyngeal Specimen received for Influenza A/B Molecular testing Assess/Plan/Problems-Billing Mr Simmons is an 85 yo M who has a h/o CAD, Type II DM, HTN, COPD and recent diagnosis of bronchitis who presented to the ER with c/o worsened SOB and appeared to be septic and was admitted for possible sepsis secondary to bronchitis however immediately after he arrived to the ICU he had a very large melanotic stool concerning for GI bleed. - Patient Problems (1) Upper GI bleed Current Visit: Yes Status: Acute Code(s): K92.2 - GASTROINTESTINAL HEMORRHAGE, UNSPECIFIED SNOMED Code(s): 45827894 Comment: The patient had another dark stool overnight. H/H had been stable after 1 unit PRBC until this AM-now down to 7.8/24. Continue protonix drip. Await recommendations from GI about EGD today. BP is improved today. Will follow up H/H later this AM and if dropping further will need to transfuse but I do not want to give unmatched blood unless it is O-. (2) Acute blood loss anemia Current Visit: Yes Status: Acute Code(s): D62 - ACUTE POSTHEMORRHAGIC ANEMIA SNOMED Code(s): 670651710 Comment: H/H down this AM but as pt is now hemodynamically stable will recheck at 1000. Transfuse as needed. (3) Hypotension Current Visit: Yes Status: Acute Comment: BP is now improved. Continue to hold antihypertensives. Will stop NS and change to D51/2NS at a lower rate as he is now mildy hypernatremic and hyperchloremic. (4) Leukocytosis Current Visit: Yes Status: Acute Code(s): D72.829 - ELEVATED WHITE BLOOD CELL COUNT, UNSPECIFIED SNOMED Code(s): 537983917 Comment: Etiology of the leukocytosis on admission is not clear. ? stress reaction vs infection (no clear source of infection has been identified. He was tender to palpation in the RUQ this AM. Will get gallbladder US as it was not well visualized on CT on admission and he is not on Abx coverage for gallbladder disease any longer. Continue to follow for signs of infection. Additionally with the MS changes meningitis/encephalitis could be a possible source of infection however he has been afebrile. May need to consider LP if he does not start to show improvement. (5) Agitation Current Visit: Yes Status: Acute Code(s): R45.1 - RESTLESSNESS AND AGITATION SNOMED Code(s): 52681769 Comment: The patient remains agitated. He remains on precedex. Will get CT brain now that he is more calm. He is moving all extremities symmetrically and does not appear to have any focal findings. (6) Dyspnea Current Visit: Yes Status: Acute Code(s): R06.00 - DYSPNEA, UNSPECIFIED SNOMED Code(s): 709736977 Comment: The patient's respiratory rate is improved, his lung exam is clear. I do not believe there are any clear signs of bronchitis or COPD exacerbation. Will continue ceftriaxone and azithromycin for now but no clear infection has been identified. (7) Type 2 diabetes mellitus Current Visit: Yes Status: Chronic Comment: Sugars are better after starting 5 units of lantus daily. Continue fingersticks q4hr. (8) Hypercholesteremia Current Visit: Yes Status: Chronic Code(s): E78.0 - PURE HYPERCHOLESTEROLEMIA * DO NOT USE * SNOMED Code(s): 30050760 Comment: Hold statin while pt's mental status is altered. (9) DVT prophylaxis Current Visit: Yes Status: Acute Code(s): FPL1347 - SNOMED Code(s): 550986390 Comment: SCDs only secondary to GI bleed (10) Full code status Current Visit: Yes Status: Acute Code(s): Z78.9 - OTHER SPECIFIED HEALTH STATUS SNOMED Code(s): 076835609
[2016-10-13] MEDS: Haloperidol INJ IV/IM* 5 MG/ML AMP IV SLOW PU PRN (08:27)
[2016-10-13] MEDS: Morphine INJ* 2 MG/ML 1 ML CARPUJECT IV PRN ×2 (08:30→18:20)
[2016-10-13] MEDS: Mometasone/Formoter 200/5 MDI INH SCH ×2 (08:58→19:35)
--- NOTE | 2016-10-13 08:59 | RAD ---
HISTORY: Altered mental status COMPARISONS: None TECHNIQUE: Multiple contiguous axial CT scans were obtained of the head without intravenous contrast. FINDINGS: The study is limited by patient motion artifact. HEMORRHAGE/INFARCT: There is no hemorrhage or acute infarct. MASSES/SHIFT: There is no mass or shift. EXTRA-AXIAL SPACES: There are no extra-axial fluid collections. SULCI AND VENTRICLES: There is mild diffuse and proportional enlargement of the sulci and ventricles. CEREBRUM: There is hypoattenuation of the periventricular and subcortical white matter. BRAINSTEM: There are no focal parenchymal abnormalities. CEREBELLUM: There are no focal parenchymal abnormalities. VESSELS: There is calcification of the cavernous segments of the internal carotid arteries bilaterally and of the distal vertebral arteries bilaterally. PARANASAL SINUSES: The paranasal sinuses are clear. ORBITS: The orbits are unremarkable. BONES AND SOFT TISSUE: No bone or soft tissue abnormalities are noted. OTHER: None IMPRESSION: NO ACUTE INTRACRANIAL PATHOLOGY. DIFFUSE INVOLUTIONAL CHANGE WITH CHRONIC SMALL VESSEL ISCHEMIC CHANGES.
[2016-10-13] MEDS: D5W 1/2 NS 1000 ML BAG* 1,000 ML IV SCH (09:50)
[2016-10-13] MEDS: Insulin GLARGINE(*) 1 UNITS UNIT SUBCUT SCH (10:59)
[2016-10-13] MEDS: Atorvastatin* 20 MG TAB PO SCH (10:59)
[2016-10-13] MEDS: Metoprolol Tartrate TAB* 25 MG PO SCH ×2 (10:59→22:28)
--- NOTE | 2016-10-13 11:07 | PN ---
Progress Note - Progress Note SOAP: Subjective: More comfortable and relaxed at my visit this morning No complaints of abdominal pain No further melena or rectal bleeding present at visit. Objective: Temp Pulse Resp BP Pulse Ox 98.1 F 87 18 128/57 98 10/13/16 07:24 10/13/16 08:00 10/13/16 08:30 10/13/16 06:00 10/13/16 08:00 Intake & Output 10/11/16 10/12/16 10/13/16 10/14/16 06:59 06:59 06:59 06:59 Intake Total 3302 4331.7 146 Output Total 500 2250 Balance 2802 2081.7 146 Weight 178 lb 12.718 oz 183 lb 10.321 oz Intake: IV Fluids 3302 2820 146 ABX - AZITHROMYCIN 257 NS 2563 146 IVPB 491 ABX - CEFTRIAXONE 55 ABX - ZOSYN 326 NS 110 Medicated IV 723.7 CC - Dexmedetomidine/ 238.7 Precedex GEN - Pantoprazole/ 485 Protonix Packed Cells 297 Output: [place] 500 2250 PEX: Sleepy but responds to questions and is appropriate Abd is soft and non-distended. There is no tenderness noted Bowel sounds are present. Laboratory Last Values WBC 11.2 10^3/ul (3.5-10.8) H 10/13/16 05:53 RBC 2.67 10^6/ul (4.0-5.4) L 10/13/16 05:53 Hgb 7.8 g/dl (14.0-18.0) L 10/13/16 05:53 Hct 24 % (42-52) L 10/13/16 05:53 MCV 89 fL (80-94) 10/13/16 05:53 MCH 29 pg (27-31) 10/13/16 05:53 MCHC 33 g/dl (31-36) 10/13/16 05:53 RDW 14 % (10.5-15) 10/13/16 05:53 Plt Count 154 10^3/ul (150-450) 10/13/16 05:53 MPV 8 um3 (7.4-10.4) 10/13/16 05:53 Neut % (Auto) 83.2 % (38-83) H 10/12/16 07:25 Lymph % (Auto) 7.8 % (25-47) L 10/12/16 07:25 [place] % (Auto) 8.7 % (1-9) 10/12/16 07:25 Eos % (Auto) 0.1 % (0-6) 10/12/16 07:25 Baso % (Auto) 0.2 % (0-2) 10/12/16 07:25 Absolute Neuts (auto) 8.7 10^3/ul (1.5-7.7) H 10/12/16 07:25 Absolute Lymphs (auto) 0.8 10^3/ul (1.0-4.8) L 10/12/16 07:25 Absolute Monos (auto) 0.9 10^3/ul (0-0.8) H 10/12/16 07:25 Absolute Eos (auto) 0 10^3/ul (0-0.6) 10/12/16 07:25 Absolute Basos (auto) 0 10^3/ul (0-0.2) 10/12/16 07:25 Absolute Nucleated RBC 0.01 10^3/ul 10/12/16 07:25 Nucleated RBC % 0.1 10/12/16 07:25 INR (Anticoag Therapy) 0.98 (0.89-1.11) 10/11/16 17:05 ABG pH 7.40 (7.35-7.45) 10/11/16 17:40 ABG pCO2 23 mmHg (35-45) L 10/11/16 17:40 ABG pO2 77 mmHg (80-100) L 10/11/16 17:40 ABG HCO3 17.9 mmol/L (19-31) L 10/11/16 17:40 ABG O2 Saturation 97.5 % (95-98) 10/11/16 17:40 ABG Base Excess -9.0 (-2.0-2.0) L 10/11/16 17:40 Sodium 146 mmol/L (133-145) H D 10/13/16 05:53 Potassium 3.5 mmol/L (3.5-5.0) 10/13/16 05:53 Chloride 120 mmol/L (101-111) H 10/13/16 05:53 Carbon Dioxide 19 mmol/L (22-32) L 10/13/16 05:53 Anion Gap 7 mmol/L (2-11) 10/13/16 05:53 BUN 63 mg/dL (6-24) H 10/13/16 05:53 Creatinine 1.35 mg/dL (0.67-1.17) H 10/13/16 05:53 Est GFR ( Amer) 64.9 (>60) 10/13/16 05:53 Est GFR (Non-Af Amer) 50.5 (>60) 10/13/16 05:53 BUN/Creatinine Ratio 46.7 (8-20) H 10/13/16 05:53 Glucose 173 mg/dL (70-100) H 10/13/16 05:53 POC Glucose (mg/dL) 171 mg/dL (74-106) H 10/13/16 05:34 Hemoglobin A1c 6.7 % (Less than 6.0) H 10/11/16 17:05 Lactic Acid 3.8 mmol/L (0.5-2.0) H* 10/12/16 05:23 Calcium 7.4 mg/dL (8.6-10.3) L 10/13/16 05:53 Total Bilirubin 0.40 mg/dL (0.2-1.0) 10/11/16 17:05 AST 23 U/L (13-39) 10/11/16 17:05 ALT 22 U/L (7-52) 10/11/16 17:05 Alkaline Phosphatase 39 U/L (34-104) 10/11/16 17:05 Troponin I 0.03 ng/mL (<0.04) 10/11/16 17:05 C-Reactive Protein 1.15 mg/L (< 5.00) 10/11/16 17:05 B-Natriuretic Peptide 74 pg/mL (-100) 10/11/16 17:05 Total Protein 5.2 g/dL (6.4-8.9) L 10/11/16 17:05 Albumin 3.3 g/dL (3.2-5.2) 10/11/16 17:05 Globulin 1.9 g/dL (2-4) L 10/11/16 17:05 Albumin/Globulin Ratio 1.7 (1-3) 10/11/16 17:05 Urine Color Yellow 10/12/16 05:23 Urine Appearance Clear 10/12/16 05:23 Urine pH 5.0 (5-9) 10/12/16 05:23 Ur Specific [place] 1.018 (1.010-1.030) 10/12/16 05:23 Urine Protein Negative (Negative) 10/12/16 05:23 Urine Ketones Trace (Negative) H 10/12/16 05:23 Urine Blood Negative (Negative) 10/12/16 05:23 Urine Nitrate Negative (Negative) 10/12/16 05:23 Urine Bilirubin Negative (Negative) 10/12/16 05:23 Urine Urobilinogen Negative (Negative) 10/12/16 05:23 Ur Leukocyte Esterase Negative (Negative) 10/12/16 05:23 Urine Glucose 3+(>=500 mg/dl) (Negative) H 10/12/16 05:23 Influenza A (Rapid) Negative (Negative) 10/11/16 22:14 Influenza B (Rapid) Negative (Negative) 10/11/16 22:14 Blood Type B Negative 10/11/16 23:45 Antibody Screen Negative 10/11/16 23:45 Crossmatch See Detail 10/11/16 23:45 Assessment: Melena which appears to have stopped-no further evidence of GI bleeding Abdominal tenderness has resolved. WBC down Plan: Continue present management-he did have some RUQ pain and an US has been ordered -at present his exam is benign. Continue IV abx No surgical intervention at present All discussed with .
[2016-10-13 12:11] LABS: Comments Flag Yes; Hematocrit 23 % (42-52); Hemoglobin 7.9 g/dl (14.0-18.0)
--- NOTE | 2016-10-13 14:51 | RAD ---
HISTORY: Right upper quadrant pain COMPARISONS: October 12, 2016 TECHNIQUE: Multiple transverse and longitudinal ultrasound images were obtained of the right upper quadrant of the abdomen using grayscale and color Doppler imaging. FINDINGS: LIVER: The liver is diffusely echogenic and coarse in echotexture, with decreased acoustic transmission. The liver is otherwise normal in shape, size, and contour. There is normal hepatopedal flow of the portal vein on Doppler imaging. BILIARY TREE: There is no intrahepatic or extrahepatic biliary dilatation. The common duct measures 0.3 cm. GALLBLADDER: The gallbladder is well-visualized. There is no cholelithiasis, gallbladder wall thickening, pericholecystic fluid, or sonographic Collazo sign. PANCREAS: The head of the pancreas is unremarkable. The tail of the pancreas is not well visualized secondary to overlying bowel gas. RIGHT KIDNEY: There is a minimally complicated cyst of the upper pole of the right kidney measuring 2.4 cm. There is no hydronephrosis or nephrolithiasis. The right kidney measures 10.6 x 4.7 x 5.1 cm. AORTA AND IVC: The aorta and IVC are unremarkable. FLUID: There are no pleural effusions. There is no free fluid within the hepatorenal recess. OTHER FINDINGS: None. IMPRESSION: ECHOGENIC LIVER CONSISTENT WITH FATTY INFILTRATION
[2016-10-13] MEDS: cefTRIAXone VIAL(*) 1,000 MG in NS 0.9% 50 ML* 50 ML IVPB SCH (18:09)
[2016-10-13] MEDS: Montelukast Sodium TAB* 10 MG PO SCH (18:31)
[2016-10-13] MEDS: Azithromycin IV(*) 500 MG in NS 0.9% 250 ML* 250 ML IVPB SCH (18:31)
[2016-10-13] MEDS: Metoprolol Tartrate IV* 1 MG/ML 5 ML VIAL IV SCH (21:36)
[2016-10-14] MEDS: Dexmedetomidine* 50 ML IVPB SCH ×2 (01:05→15:04)
[2016-10-14] MEDS: Insulin LISPRO* 1 UNITS UNIT SUBCUT SCH ×6 (02:30→22:26)
[2016-10-14] MEDS: Pantoprazole IV* 80 MG in NS 0.9% 250 ML* 250 ML IVPB SCH ×2 (03:45→09:46)
--- NOTE | 2016-10-14 04:20 | CONS ---
CONSULTATION REPORT: DATE OF CONSULT: 10/11/16 HISTORY OF PRESENT ILLNESS: I was contacted the hospitalist service to evaluate Shar Simmons, an 85-year-old gentleman who was admitted to the ICU last night with sepsis, COPD exacerbation and ques tionable GI bleed. At that time, hospitalist noticed lactic acidosis and severe abdominal pain and distension. The patient was sent for a CAT scan and I evaluated the patient in early hours today an d again I came just now. According to the patient's family, he had some significant shortness of breath 3 days ago. He prese nted to the emergency room on 10/09/16 with this shortness of breath, was treated with nebulizers an d a steroid taper and was discharged home. The patient continued to have similar symptoms and asked his to take him to the hospital yester day morning. No description of abdominal pain during this course until yesterday there was marked distention in t he abdomen during his transfers through the hospital from the ER to ICU. No nausea, no vomiting, bu t an important history of multiple melanotic stools. The patient is agitated and unable to give any history and history is obtained from the chart and the from the patient's . The patient has no t recently taken any aspirin other than his 81 mg daily. He also takes Plavix. In the emergency room, the patient initially underwent a CT angiogram of the chest. These images wer e not reviewed, but the results were showing negative for pneumonia or pulmonary embolus or acute fi ndings. The patient went back for a CT scan of the abdomen and pelvis with oral and IV contrast. T hese images were reviewed and showed no acute findings. The patient notably had a significant drop in hemoglobin from 11.2 to 7.8. It had been 14.2 two day s prior in the emergency room. So this defined a drop of 50% of his hemoglobin in a short time. Sin ce then, patient has received 1 unit of blood. PAST MEDICAL HISTORY: 1. Coronary artery disease, status post 5 stents. His last stent was 2 years ago. 2. Type 2 diabetes. 3. Hypertension. 4. COPD. PAST SURGICAL HISTORY: Abdominal surgeries include appendectomy. SOCIAL HISTORY: He is a nonsmoker, lives with his . REVIEW OF SYSTEMS: Ten point review of systems suggest no other pertinent positives and negatives o ther than as mentioned in the HPI. PHYSICAL EXAM: When I initially saw him early today, he was quite tachycardic in 110 to 120s. Curr ently his heart rate is in the 60s, mean arterial pressure has been 50 to 60s. He is afebrile. He is not alert. His sclerae anicteric. The patient is using his accessory muscles to breathe. His a bdomen is soft. It is nondistended, nontender. No peritoneal signs. Rectal exam was not performed . DIAGNOSTIC STUDIES/LAB DATA: Labs and imaging reviewed. IMPRESSION: Gastrointestinal bleed, likely upper, brisk with a drop of hemoglobin of 50% in the cou rse of 4 days. RECOMMENDATIONS: Resuscitation including blood products. The patient has only received one and wit h mean arterial pressure currently in the high 50s, I recommend additional transfusion. The patient should undergo EGD and if this is not available, then we should look towards undergoing a bleeding scan. The patient may require surgical intervention if he does not stabilize his significant blood loss that we are seen at this point. The patient's lactic acid has improved significantly since compared to when I was initially called t o suggest some improved resuscitation is occurring. I do not feel this is any acute abdominal catas trophe that would warrant any urgent surgical intervention, but we will follow along closely. [id number]/[facility] #: [id number]
[2016-10-14] MEDS: Metoprolol Tartrate IV* 1 MG/ML 5 ML VIAL IV SCH ×4 (05:18→18:07)
[2016-10-14 05:34] LABS: Hematocrit 25 % (42-52); Hemoglobin 8.3 g/dl (14.0-18.0); Mean Corpuscular HGB Conc 34 g/dl (31-36); Mean Corpuscular Hemoglobin 30 pg (27-31); Mean Corpuscular Volume 88 fL (80-94); Mean Platelet Volume 9 um3 (7.4-10.4); Red Blood Count 2.79 10^6/ul (4.0-5.4); Red Cell Distribution Width 14 % (10.5-15); White Blood Count 12.6 10^3/ul (3.5-10.8)
[2016-10-14 05:35] LABS: Add Diff/Slide Review? Slide Review Added; Comments Flag Yes
[2016-10-14 05:46] LABS: Albumin 3.3 g/dL (3.2-5.2); BUN/Creatinine Ratio 36.5 (8-20); Calcium 7.7 mg/dL (8.6-10.3); EGFR African American 78.1 (>60); EGFR Non-African American 60.7 (>60); Globulin 1.7 g/dL (2-4); Potassium 3.3 mmol/L (3.5-5.0); Total Bilirubin 0.5 mg/dL (0.2-1.0)
[2016-10-14 06:04] LABS: Magnesium 2.2 mg/dL (1.9-2.7)
[2016-10-14] MEDS: Albuterol 2.5 MG/3 ML NEB.SOL* (0.083%) INH PRN ×3 (09:19→20:41)
[2016-10-14] MEDS: Atorvastatin* 20 MG TAB PO SCH (09:20)
[2016-10-14] MEDS: Mometasone/Formoter 200/5 MDI INH SCH ×2 (09:47→20:41)
[2016-10-14] MEDS: Insulin GLARGINE(*) 1 UNITS UNIT SUBCUT SCH (10:03)
[2016-10-14] MEDS: methylPREDNISolone SOD 40 MG* 1 ML VIAL IV SCH ×2 (10:03→21:45)
[2016-10-14] MEDS: D5W 1/2 NS 1000 ML BAG* 1,000 ML IV SCH (13:25)
[2016-10-14] MEDS: NS 0.45% 1000 ML BAG* 1,000 ML IV SCH ×2 (14:00→23:57)
[2016-10-14] MEDS ORDERED: fentaNYL* 50 MCG/ML 2 ML VIAL (100 MCG VIAL) ONE (14:45)
[2016-10-14] MEDS ORDERED: Midazolam* 1 MG/ML 10 ML VIAL (10 MG) ONE (14:46)
--- NOTE | 2016-10-14 15:59 | PN ---
Subjective Date of Service: 10/14/16 Interval History: Pt is feeling ok. He denies any pain. He does state he feels SOB. His family/ nursing notice that he is much more calm and oriented today. He c/o feeling thirsty. Objective Active Medications: Acetaminophen (Tylenol Tab*) 650 mg PO Q6H PRN PRN Reason: FEVER/PAIN Albuterol (Ventolin 2.5 Mg/3 Ml Neb.Shayla*) 2.5 mg INH Q2H PRN PRN Reason: SOB/WHEEZING Last Admin: 10/14/16 13:03 Dose: 2.5 mg Atorvastatin Calcium (Lipitor*) 20 mg PO DAILY [facility] [place] Last Admin: 10/14/16 09:20 Dose: Not Given Haloperidol Lactate (Haldol Inj Iv/Im*) 5 mg IV SLOW PU Q6H PRN PRN Reason: AGITATION Last Admin: 10/13/16 08:27 Dose: 5 mg Ceftriaxone Sodium 1,000 mg/ (Sodium Chloride) 50 mls @ 200 mls/hr IVPB Q24H [facility] [place] Last Admin: 10/13/16 18:09 Dose: 200 mls/hr Azithromycin 500 mg/ Sodium (Chloride) 250 mls @ 250 mls/hr IVPB Q24H [facility] [place] Last Admin: 10/13/16 18:31 Dose: 250 mls/hr Dexmedetomidine HCl (Precedex*) 50 mls @ 3.969 mls/hr IVPB .(Initial Rate) [facility] [place] PRN Reason: 0.2 MCG/KG/HR Last Admin: 10/14/16 15:04 Dose: 3.969 mls/hr Sodium Chloride (Ns 0.45% 1000 Ml Bag*) 1,000 mls @ 100 mls/hr IV PER RATE [facility] [place] Last Admin: 10/14/16 14:00 Dose: 100 mls/hr Insulin Glargine (Lantus(*)) 5 units SUBCUT Q24H [facility] [place] Last Admin: 10/14/16 10:03 Dose: 5 units Insulin Human Lispro (Humalog*) 0 units SUBCUT Q4H [facility] [place] PRN Reason: Protocol Last Admin: 10/14/16 14:20 Dose: 6 units Methylprednisolone Sodium Succinate (Solu-Medrol*) 40 mg IV Q12H [facility] [place] Last Admin: 10/14/16 10:03 Dose: 40 mg Metoprolol Tartrate (Lopressor Iv*) 5 mg IV Q6H [facility] [place] Last Admin: 10/14/16 10:03 Dose: 5 mg Mometasone Furoate/Formoterol Fumar (Dulera 200/5 Mdi*) 2 puff INH BID [facility] [place] Last Admin: 10/14/16 09:47 Dose: 2 puff Montelukast Sodium (Singulair Tab*) 10 mg PO QPM [facility] [place] Last Admin: 10/13/16 18:31 Dose: Not Given Morphine Sulfate (Morphine Inj (Syringe)*) 2 mg IV Q4H PRN PRN Reason: PAIN - MILD Last Admin: 10/13/16 18:20 Dose: 2 mg Omeprazole (Prilosec Cap*) 20 mg PO DAILY [facility] [place] Ondansetron HCl (Zofran Inj*) 4 mg IV Q6H PRN PRN Reason: NAUSEA Vital Signs 10/13/16 10/13/16 10/13/16 16:00 16:09 17:00 Temperature 98.0 F Pulse Rate 68 84 Respiratory 14 21 Rate Blood Pressure 113/53 153/88 (mmHg) O2 Sat by Pulse 94 96 Oximetry 10/13/16 10/13/16 10/13/16 18:00 18:20 19:00 Temperature Pulse Rate 70 84 Respiratory 15 15 20 Rate Blood Pressure 162/81 145/98 (mmHg) O2 Sat by Pulse 94 95 Oximetry 10/13/16 10/13/16 10/13/16 19:58 20:00 21:00 Temperature 98.7 F Pulse Rate 58 93 Respiratory 18 20 Rate Blood Pressure 107/64 175/96 (mmHg) O2 Sat by Pulse 95 95 Oximetry 10/13/16 10/13/16 10/13/16 21:17 22:00 23:00 Temperature Pulse Rate 89 82 72 Respiratory 17 18 20 Rate Blood Pressure 162/78 161/89 168/140 (mmHg) O2 Sat by Pulse 95 96 98 Oximetry 10/13/16 10/14/16 10/14/16 23:04 00:00 00:01 Temperature 99 F Pulse Rate 78 89 88 Respiratory 17 21 18 Rate Blood Pressure 146/73 162/84 (mmHg) O2 Sat by Pulse 98 95 97 Oximetry 10/14/16 10/14/16 10/14/16 00:51 01:00 01:01 Temperature Pulse Rate 87 95 94 Respiratory 19 26 23 Rate Blood Pressure 165/72 (mmHg) O2 Sat by Pulse 96 95 95 Oximetry 10/14/16 10/14/16 10/14/16 02:00 03:00 04:00 Temperature 98.1 F Pulse Rate 87 56 93 Respiratory 22 12 24 Rate Blood Pressure 147/91 105/65 124/69 (mmHg) O2 Sat by Pulse 89 91 91 Oximetry 10/14/16 10/14/16 10/14/16 05:00 06:00 07:00 Temperature Pulse Rate 97 73 83 Respiratory 25 23 24 Rate Blood Pressure 168/97 127/64 140/56 (mmHg) O2 Sat by Pulse 95 94 88 Oximetry 10/14/16 10/14/16 10/14/16 08:00 08:47 09:00 Temperature 98.2 F Pulse Rate 82 82 Respiratory 25 24 25 Rate Blood Pressure 144/67 151/68 (mmHg) O2 Sat by Pulse 95 97 Oximetry 10/14/16 10/14/16 10/14/16 10:00 10:25 11:00 Temperature Pulse Rate 85 78 Respiratory 19 26 24 Rate Blood Pressure 141/70 139/74 (mmHg) O2 Sat by Pulse 99 98 Oximetry 10/14/16 10/14/16 10/14/16 12:00 12:15 13:00 Temperature 98.5 F Pulse Rate 85 79 Respiratory 27 23 Rate Blood Pressure 151/71 127/89 (mmHg) O2 Sat by Pulse 94 98 Oximetry 10/14/16 10/14/16 10/14/16 13:14 14:00 14:23 Temperature Pulse Rate 95 Respiratory 20 28 19 Rate Blood Pressure 163/91 (mmHg) O2 Sat by Pulse 98 Oximetry 10/14/16 10/14/16 10/14/16 15:00 15:05 15:10 Temperature Pulse Rate 101 93 94 Respiratory 21 25 26 Rate Blood Pressure 166/78 159/74 173/83 (mmHg) O2 Sat by Pulse 95 97 98 Oximetry 10/14/16 10/14/16 10/14/16 15:15 15:20 15:21 Temperature Pulse Rate 93 91 96 Respiratory 28 27 22 Rate Blood Pressure 169/63 172/137 176/79 (mmHg) O2 Sat by Pulse 99 97 97 Oximetry 10/14/16 10/14/16 10/14/16 15:30 15:35 15:40 Temperature Pulse Rate 72 91 85 Respiratory 20 26 16 Rate Blood Pressure 110/94 139/62 145/101 (mmHg) O2 Sat by Pulse 97 99 98 Oximetry 10/14/16 15:44 Temperature Pulse Rate Respiratory 17 Rate Blood Pressure (mmHg) O2 Sat by Pulse Oximetry Oxygen Devices in Use Now: None - 98% Appearance: Elderly male sitting up in bed, NAD Eyes: No Scleral Icterus Ears/Nose/Mouth/Throat: Mucous Membranes Moist Respiratory: Symmetrical Chest Expansion and Respiratory Effort, Clear to Auscultation - slightly decreased breath sounds at the bases Cardiovascular: NL Sounds; No Murmurs; No JVD, RRR, No Edema Abdominal: NL Sounds; No Tenderness; No Distention Extremities: No Clubbing, Cyanosis Skin: No Rash or Ulcers, No Nodules or Sclerosis Neurological: - - sleepy but arousable, answers some questions Result Diagrams: 10/14/16 05:05 10/14/16 05:05 Additional Lab and Data: Lab Results 10/11/16 10/11/16 10/11/16 Range/Units 17:05 17:05 17:05 WBC 17.0 H (3.5-10.8) 10^3/ul RBC 3.77 L (4.0-5.4) 10^6/ul Hgb 11.2 L (14.0-18.0) g/dl Hct 34 L (42-52) % MCV 90 (80-94) fL MCH 30 (27-31) pg MCHC 33 (31-36) g/dl RDW 15 (10.5-15) % Plt Count 302 (150-450) 10^3/ul MPV 9 (7.4-10.4) um3 Neut % (Auto) 88.5 H (38-83) % Lymph % (Auto) 7.1 L (25-47) % Cotton % (Auto) 4.2 (1-9) % Eos % (Auto) 0 (0-6) % Baso % (Auto) 0.2 (0-2) % Absolute Neuts (auto) 15.1 H (1.5-7.7) 10^3/ul Absolute Lymphs (auto) 1.2 (1.0-4.8) 10^3/ul Absolute Monos (auto) 0.7 (0-0.8) 10^3/ul Absolute Eos (auto) 0 (0-0.6) 10^3/ul Absolute Basos (auto) 0 (0-0.2) 10^3/ul Absolute Nucleated RBC 0 10^3/ul Nucleated RBC % 0 INR (Anticoag Therapy) (0.89-1.11) ABG pH (7.35-7.45) ABG pCO2 (35-45) mmHg ABG pO2 (80-100) mmHg ABG HCO3 (19-31) mmol/L ABG O2 Saturation (95-98) % ABG Base Excess (-2.0-2.0) Sodium 129 L (133-145) mmol/L Potassium 5.5 H D (3.5-5.0) mmol/L Chloride 98 L (101-111) mmol/L Carbon Dioxide 17 L (22-32) mmol/L Anion Gap 14 H (2-11) mmol/L BUN 49 H (6-24) mg/dL Creatinine 1.48 H (0.67-1.17) mg/dL Est GFR ( Amer) 58.4 (>60) Est GFR (Non-Af Amer) 45.4 (>60) BUN/Creatinine Ratio 33.1 H (8-20) Glucose 491 H (70-100) mg/dL Lactic Acid 6.7 H* (0.5-2.0) mmol/L Calcium 8.3 L (8.6-10.3) mg/dL Total Bilirubin 0.40 (0.2-1.0) mg/dL AST 23 (13-39) U/L ALT 22 (7-52) U/L Alkaline Phosphatase 39 (34-104) U/L Troponin I 0.03 (<0.04) ng/mL C-Reactive Protein 1.15 (< 5.00) mg/L B-Natriuretic Peptide ( - 100) pg/mL Total Protein 5.2 L (6.4-8.9) g/dL Albumin 3.3 (3.2-5.2) g/dL Globulin 1.9 L (2-4) g/dL Albumin/Globulin Ratio 1.7 (1-3) 10/11/16 10/11/16 10/11/16 Range/Units 17:05 17:05 17:40 WBC (3.5-10.8) 10^3/ul RBC (4.0-5.4) 10^6/ul Hgb (14.0-18.0) g/dl Hct (42-52) % MCV (80-94) fL MCH (27-31) pg MCHC (31-36) g/dl RDW (10.5-15) % Plt Count (150-450) 10^3/ul MPV (7.4-10.4) um3 Neut % (Auto) (38-83) % Lymph % (Auto) (25-47) % Cotton % (Auto) (1-9) % Eos % (Auto) (0-6) % Baso % (Auto) (0-2) % Absolute Neuts (auto) (1.5-7.7) 10^3/ul Absolute Lymphs (auto) (1.0-4.8) 10^3/ul Absolute Monos (auto) (0-0.8) 10^3/ul Absolute Eos (auto) (0-0.6) 10^3/ul Absolute Basos (auto) (0-0.2) 10^3/ul Absolute Nucleated RBC 10^3/ul Nucleated RBC % INR (Anticoag Therapy) 0.98 (0.89-1.11) ABG pH 7.40 (7.35-7.45) ABG pCO2 23 L (35-45) mmHg ABG pO2 77 L (80-100) mmHg ABG HCO3 17.9 L (19-31) mmol/L ABG O2 Saturation 97.5 (95-98) % ABG Base Excess -9.0 L (-2.0-2.0) Sodium (133-145) mmol/L Potassium (3.5-5.0) mmol/L Chloride (101-111) mmol/L Carbon Dioxide (22-32) mmol/L Anion Gap (2-11) mmol/L BUN (6-24) mg/dL Creatinine (0.67-1.17) mg/dL Est GFR ( Amer) (>60) Est GFR (Non-Af Amer) (>60) BUN/Creatinine Ratio (8-20) Glucose (70-100) mg/dL Lactic Acid (0.5-2.0) mmol/L Calcium (8.6-10.3) mg/dL Total Bilirubin (0.2-1.0) mg/dL AST (13-39) U/L ALT (7-52) U/L Alkaline Phosphatase (34-104) U/L Troponin I (<0.04) ng/mL C-Reactive Protein (< 5.00) mg/L B-Natriuretic Peptide 74 ( - 100) pg/mL Total Protein (6.4-8.9) g/dL Albumin (3.2-5.2) g/dL Globulin (2-4) g/dL Albumin/Globulin Ratio (1-3) Microbiology and Other Data: Microbiology 10/11/16 23:20 Stool Gross Appearance - Final Stool Stool Occult Blood ([facility]) - Final 10/11/16 21:15 Nasal Screen MRSA (PCR)([facility]) - Final Nasal Mrsa Negative 10/11/16 21:15 Influenza Types A,B Antigen ([facility]) - Final Nasopharyngeal Specimen received for Influenza A/B Molecular testing Assess/Plan/Problems-Billing Mr Simmons is an 85 yo M who has a h/o CAD, Type II DM, HTN, COPD and recent diagnosis of bronchitis who presented to the ER with c/o worsened SOB and appeared to be septic and was admitted for possible sepsis secondary to bronchitis however immediately after he arrived to the ICU he had a very large melanotic stool concerning for GI bleed. - Patient Problems (1) Upper GI bleed Current Visit: Yes Status: Acute Code(s): K92.2 - GASTROINTESTINAL HEMORRHAGE, UNSPECIFIED SNOMED Code(s): 74106353 Comment: Plan for EGD today. H/H is relatively stable. Follow up H/H tomorrow. Continue protonix drip. (2) Acute blood loss anemia Current Visit: Yes Status: Acute Code(s): D62 - ACUTE POSTHEMORRHAGIC ANEMIA SNOMED Code(s): 413492000 Comment: H/H slightly up today. Will continue to monitor. (3) Hypotension Current Visit: Yes Status: Acute Comment: Resolved-in fact pt is now actually at times hypertensive. Continue to hold home medications at this time however. (4) Leukocytosis Current Visit: Yes Status: Acute Code(s): D72.829 - ELEVATED WHITE BLOOD CELL COUNT, UNSPECIFIED SNOMED Code(s): 096651649 Comment: WBC count is up again today but still no clear signs of infection. The patient did have some coughing while I was examining him but no sputum was produced. RUQ US did not reveal any signs of cholecystitis. Will continue to hold off on LP as his mental status is better today though still not back to baseline. Will continue ceftriaxone and azithromycin for now. His bumped WBC count the last 2 days could be secondary to steroids as his count normalized then bumped again after being on the steroids for 24hr. Will continue to follow. I do not think the patient was septic on admission as no clear infection was found however he met several SIRS/SOFA criteria. Will continue to monitor for signs of definitive infection. (5) Agitation Current Visit: Yes Status: Acute Code(s): R45.1 - RESTLESSNESS AND AGITATION SNOMED Code(s): 25077864 Comment: Pt is much less agitated today. He is sleepy but arousable. After his EGD will try to wean off the precedex. Continue to monitor his mental status. (6) Dyspnea Current Visit: Yes Status: Acute Code(s): R06.00 - DYSPNEA, UNSPECIFIED SNOMED Code(s): 249669338 Comment: RR is up today and he c/o SOB however his lung is exam is clear except for decreased breath sounds at the bases. Continue ceftriaxone and azithromycin. (7) Type 2 diabetes mellitus Current Visit: Yes Status: Chronic Comment: Sugars are elevated on the D5 and steroids-change to 1/2NS to improve the sugar control. Continue fingersticks q4hr. (8) Hypercholesteremia Current Visit: Yes Status: Chronic Code(s): E78.0 - PURE HYPERCHOLESTEROLEMIA * DO NOT USE * SNOMED Code(s): 01390662 Comment: Hold statin while pt's mental status is altered. (9) DVT prophylaxis Current Visit: Yes Status: Acute Code(s): PCJ5496 - SNOMED Code(s): 910517451 Comment: SCDs only secondary to GI bleed (10) Full code status Current Visit: Yes Status: Acute Code(s): Z78.9 - OTHER SPECIFIED HEALTH STATUS SNOMED Code(s): 831499166
[2016-10-14] MEDS: cefTRIAXone VIAL(*) 1,000 MG in NS 0.9% 50 ML* 50 ML IVPB SCH (17:52)
[2016-10-14] MEDS: Montelukast Sodium TAB* 10 MG PO SCH (18:07)
[2016-10-14] MEDS: Azithromycin IV(*) 500 MG in NS 0.9% 250 ML* 250 ML IVPB SCH (18:07)
[2016-10-14] MEDS: Morphine INJ* 2 MG/ML 1 ML CARPUJECT IV PRN (22:47)
[2016-10-14] MEDS: Piperac/Tazob 3.375 gm in NS* 3.375 GM/100 ML BAG IVPB SCH (23:31)
[2016-10-15] MEDS: Metoprolol Tartrate IV* 1 MG/ML 5 ML VIAL IV SCH ×2 (00:14→06:02)
[2016-10-15] MEDS: Insulin LISPRO* 1 UNITS UNIT SUBCUT SCH ×7 (02:08→22:01)
[2016-10-15] MEDS: Morphine INJ* 2 MG/ML 1 ML CARPUJECT IV PRN (02:50)
[2016-10-15] MEDS: Haloperidol INJ IV/IM* 5 MG/ML AMP IV SLOW PU PRN (03:57)
--- NOTE | 2016-10-15 07:50 | PN ---
Subjective Date of Service: 10/15/16 Interval History: Pt is sleepy but awakens to voice- he is very [place] and does not have his hearing aides in. He is able to answer "no" to being in pain but otherwise I am unable to get any responses. Objective Active Medications: Acetaminophen (Tylenol Tab*) 650 mg PO Q6H PRN PRN Reason: FEVER/PAIN Last Admin: 10/14/16 18:20 Dose: 650 mg Albuterol (Ventolin 2.5 Mg/3 Ml Neb.Shayla*) 2.5 mg INH Q2H PRN PRN Reason: SOB/WHEEZING Last Admin: 10/14/16 20:41 Dose: 2.5 mg Atorvastatin Calcium (Lipitor*) 20 mg PO DAILY [facility] Last Admin: 10/14/16 09:20 Dose: Not Given Ceftriaxone Sodium 1,000 mg/ (Sodium Chloride) 50 mls @ 200 mls/hr IVPB Q24H [facility] Last Admin: 10/14/16 17:52 Dose: 200 mls/hr Azithromycin 500 mg/ Sodium (Chloride) 250 mls @ 250 mls/hr IVPB Q24H [facility] Last Admin: 10/14/16 18:07 Dose: 250 mls/hr Insulin Glargine (Lantus(*)) 8 units SUBCUT Q24H [facility] Insulin Human Lispro (Humalog*) 0 units SUBCUT Q4H [facility] PRN Reason: Protocol Last Admin: 10/15/16 06:06 Dose: 3 units Metoprolol Tartrate (Lopressor Tab*) 12.5 mg PO Q12HR [facility] Mometasone Furoate/Formoterol Fumar (Dulera 200/5 Mdi*) 2 puff INH BID [facility] Last Admin: 10/14/16 20:41 Dose: 2 puff Montelukast Sodium (Singulair Tab*) 10 mg PO QPM [facility] Last Admin: 10/14/16 18:07 Dose: Not Given Omeprazole (Prilosec Cap*) 20 mg PO DAILY [facility] Ondansetron HCl (Zofran Inj*) 4 mg IV Q6H PRN PRN Reason: NAUSEA Prednisone (Deltasone Tab*) 40 mg PO DAILY [facility] Vital Signs 10/14/16 10/14/16 10/14/16 08:00 08:47 09:00 Temperature 98.2 F Pulse Rate 82 82 Respiratory 25 24 25 Rate Blood Pressure 144/67 151/68 (mmHg) O2 Sat by Pulse 95 97 Oximetry 10/14/16 10/14/16 10/14/16 10:00 10:25 11:00 Temperature Pulse Rate 85 78 Respiratory 19 26 24 Rate Blood Pressure 141/70 139/74 (mmHg) O2 Sat by Pulse 99 98 Oximetry 10/14/16 10/14/16 10/14/16 12:00 12:15 13:00 Temperature 98.5 F Pulse Rate 85 79 Respiratory 27 23 Rate Blood Pressure 151/71 127/89 (mmHg) O2 Sat by Pulse 94 98 Oximetry 10/14/16 10/14/16 10/14/16 13:14 14:00 14:23 Temperature Pulse Rate 95 Respiratory 20 28 19 Rate Blood Pressure 163/91 (mmHg) O2 Sat by Pulse 98 Oximetry 10/14/16 10/14/16 10/14/16 15:00 15:05 15:10 Temperature Pulse Rate 101 93 94 Respiratory 21 25 26 Rate Blood Pressure 166/78 159/74 173/83 (mmHg) O2 Sat by Pulse 95 97 98 Oximetry 10/14/16 10/14/16 10/14/16 15:15 15:20 15:21 Temperature Pulse Rate 93 91 96 Respiratory 28 27 22 Rate Blood Pressure 169/63 172/137 176/79 (mmHg) O2 Sat by Pulse 99 97 97 Oximetry 10/14/16 10/14/16 10/14/16 15:30 15:35 15:40 Temperature Pulse Rate 72 91 85 Respiratory 20 26 16 Rate Blood Pressure 110/94 139/62 145/101 (mmHg) O2 Sat by Pulse 97 99 98 Oximetry 10/14/16 10/14/16 10/14/16 15:44 15:47 16:00 Temperature Pulse Rate 87 88 Respiratory 17 20 26 Rate Blood Pressure 133/62 (mmHg) O2 Sat by Pulse 97 97 Oximetry 10/14/16 10/14/16 10/14/16 16:02 16:22 16:36 Temperature 98.3 F Pulse Rate 90 Respiratory 27 21 Rate Blood Pressure 103/76 (mmHg) O2 Sat by Pulse 94 Oximetry 10/14/16 10/14/16 10/14/16 17:00 18:00 18:01 Temperature Pulse Rate 79 94 96 Respiratory 18 23 25 Rate Blood Pressure 126/61 160/88 (mmHg) O2 Sat by Pulse 100 99 99 Oximetry 10/14/16 10/14/16 10/14/16 19:00 19:53 20:00 Temperature 98.5 F Pulse Rate 73 84 Respiratory 21 25 Rate Blood Pressure 152/69 177/115 (mmHg) O2 Sat by Pulse 100 100 Oximetry 10/14/16 10/14/16 10/14/16 20:05 20:40 21:00 Temperature Pulse Rate 86 91 96 Respiratory 24 33 28 Rate Blood Pressure 166/137 (mmHg) O2 Sat by Pulse 100 93 94 Oximetry 10/14/16 10/14/16 10/14/16 22:00 22:30 22:34 Temperature Pulse Rate 93 86 Respiratory 27 24 Rate Blood Pressure 160/77 165/87 (mmHg) O2 Sat by Pulse 95 98 Oximetry 10/14/16 10/14/16 10/14/16 22:47 23:00 23:38 Temperature 98.4 F Pulse Rate 91 88 Respiratory 26 25 Rate Blood Pressure 163/65 (mmHg) O2 Sat by Pulse 98 96 Oximetry 10/15/16 10/15/16 10/15/16 00:00 00:01 01:00 Temperature Pulse Rate 67 69 67 Respiratory 19 19 15 Rate Blood Pressure 165/81 151/75 (mmHg) O2 Sat by Pulse 96 96 99 Oximetry 10/15/16 10/15/16 10/15/16 02:00 02:50 03:00 Temperature Pulse Rate 83 101 Respiratory 23 26 23 Rate Blood Pressure (mmHg) O2 Sat by Pulse 100 99 Oximetry 10/15/16 10/15/16 10/15/16 03:50 03:57 04:00 Temperature 100.5 F Pulse Rate 99 96 Respiratory 20 21 Rate Blood Pressure 196/77 (mmHg) O2 Sat by Pulse 96 97 Oximetry 10/15/16 10/15/16 10/15/16 04:24 04:43 05:00 Temperature Pulse Rate 100 95 81 Respiratory 21 20 13 Rate Blood Pressure 183/84 172/64 182/66 (mmHg) O2 Sat by Pulse 97 98 98 Oximetry 10/15/16 10/15/16 10/15/16 06:00 06:03 07:28 Temperature 98.2 F Pulse Rate 98 97 Respiratory 21 20 Rate Blood Pressure 128/85 (mmHg) O2 Sat by Pulse 100 99 Oximetry Oxygen Devices in Use Now: Nasal Cannula - 2L-97% Appearance: Elderly male lying in bed sleeping, awakens to loud voice and light touch, NAD Eyes: No Scleral Icterus Ears/Nose/Mouth/Throat: - - dry oral mucosa Respiratory: Symmetrical Chest Expansion and Respiratory Effort, Clear to Auscultation - anteriorly and at the lateral bases Cardiovascular: NL Sounds; No Murmurs; No JVD, RRR, No Edema Abdominal: NL Sounds; No Tenderness; No Distention Extremities: No Clubbing, Cyanosis Skin: No Rash or Ulcers, No Nodules or Sclerosis Neurological: - - sleepy, very [place] and difficult to communicate with at this time Result Diagrams: 10/15/16 08:15 10/15/16 08:15 Additional Lab and Data: Lab Results 10/11/16 10/11/16 10/11/16 Range/Units 17:05 17:05 17:05 WBC 17.0 H (3.5-10.8) 10^3/ul RBC 3.77 L (4.0-5.4) 10^6/ul Hgb 11.2 L (14.0-18.0) g/dl Hct 34 L (42-52) % MCV 90 (80-94) fL MCH 30 (27-31) pg MCHC 33 (31-36) g/dl RDW 15 (10.5-15) % Plt Count 302 (150-450) 10^3/ul MPV 9 (7.4-10.4) um3 Neut % (Auto) 88.5 H (38-83) % Lymph % (Auto) 7.1 L (25-47) % [place] % (Auto) 4.2 (1-9) % Eos % (Auto) 0 (0-6) % Baso % (Auto) 0.2 (0-2) % Absolute Neuts (auto) 15.1 H (1.5-7.7) 10^3/ul Absolute Lymphs (auto) 1.2 (1.0-4.8) 10^3/ul Absolute Monos (auto) 0.7 (0-0.8) 10^3/ul Absolute Eos (auto) 0 (0-0.6) 10^3/ul Absolute Basos (auto) 0 (0-0.2) 10^3/ul Absolute Nucleated RBC 0 10^3/ul Nucleated RBC % 0 INR (Anticoag Therapy) (0.89-1.11) ABG pH (7.35-7.45) ABG pCO2 (35-45) mmHg ABG pO2 (80-100) mmHg ABG HCO3 (19-31) mmol/L ABG O2 Saturation (95-98) % ABG Base Excess (-2.0-2.0) Sodium 129 L (133-145) mmol/L Potassium 5.5 H D (3.5-5.0) mmol/L Chloride 98 L (101-111) mmol/L Carbon Dioxide 17 L (22-32) mmol/L Anion Gap 14 H (2-11) mmol/L BUN 49 H (6-24) mg/dL Creatinine 1.48 H (0.67-1.17) mg/dL Est GFR ( Amer) 58.4 (>60) Est GFR (Non-Af Amer) 45.4 (>60) BUN/Creatinine Ratio 33.1 H (8-20) Glucose 491 H (70-100) mg/dL Lactic Acid 6.7 H* (0.5-2.0) mmol/L Calcium 8.3 L (8.6-10.3) mg/dL Total Bilirubin 0.40 (0.2-1.0) mg/dL AST 23 (13-39) U/L ALT 22 (7-52) U/L Alkaline Phosphatase 39 (34-104) U/L Troponin I 0.03 (<0.04) ng/mL C-Reactive Protein 1.15 (< 5.00) mg/L B-Natriuretic Peptide ( - 100) pg/mL Total Protein 5.2 L (6.4-8.9) g/dL Albumin 3.3 (3.2-5.2) g/dL Globulin 1.9 L (2-4) g/dL Albumin/Globulin Ratio 1.7 (1-3) 10/11/16 10/11/16 10/11/16 Range/Units 17:05 17:05 17:40 WBC (3.5-10.8) 10^3/ul RBC (4.0-5.4) 10^6/ul Hgb (14.0-18.0) g/dl Hct (42-52) % MCV (80-94) fL MCH (27-31) pg MCHC (31-36) g/dl RDW (10.5-15) % Plt Count (150-450) 10^3/ul MPV (7.4-10.4) um3 Neut % (Auto) (38-83) % Lymph % (Auto) (25-47) % [place] % (Auto) (1-9) % Eos % (Auto) (0-6) % Baso % (Auto) (0-2) % Absolute Neuts (auto) (1.5-7.7) 10^3/ul Absolute Lymphs (auto) (1.0-4.8) 10^3/ul Absolute Monos (auto) (0-0.8) 10^3/ul Absolute Eos (auto) (0-0.6) 10^3/ul Absolute Basos (auto) (0-0.2) 10^3/ul Absolute Nucleated RBC 10^3/ul Nucleated RBC % INR (Anticoag Therapy) 0.98 (0.89-1.11) ABG pH 7.40 (7.35-7.45) ABG pCO2 23 L (35-45) mmHg ABG pO2 77 L (80-100) mmHg ABG HCO3 17.9 L (19-31) mmol/L ABG O2 Saturation 97.5 (95-98) % ABG Base Excess -9.0 L (-2.0-2.0) Sodium (133-145) mmol/L Potassium (3.5-5.0) mmol/L Chloride (101-111) mmol/L Carbon Dioxide (22-32) mmol/L Anion Gap (2-11) mmol/L BUN (6-24) mg/dL Creatinine (0.67-1.17) mg/dL Est GFR ( Amer) (>60) Est GFR (Non-Af Amer) (>60) BUN/Creatinine Ratio (8-20) Glucose (70-100) mg/dL Lactic Acid (0.5-2.0) mmol/L Calcium (8.6-10.3) mg/dL Total Bilirubin (0.2-1.0) mg/dL AST (13-39) U/L ALT (7-52) U/L Alkaline Phosphatase (34-104) U/L Troponin I (<0.04) ng/mL C-Reactive Protein (< 5.00) mg/L B-Natriuretic Peptide 74 ( - 100) pg/mL Total Protein (6.4-8.9) g/dL Albumin (3.2-5.2) g/dL Globulin (2-4) g/dL Albumin/Globulin Ratio (1-3) Microbiology and Other Data: Microbiology 10/11/16 23:20 Stool Gross Appearance - Final Stool Stool Occult Blood ([facility]) - Final 10/11/16 21:15 Nasal Screen MRSA (PCR)([facility]) - Final Nasal Mrsa Negative 10/11/16 21:15 Influenza Types A,B Antigen ([facility]) - Final Nasopharyngeal Specimen received for Influenza A/B Molecular testing Assess/Plan/Problems-Billing Mr Simmons is an 85 yo M who has a h/o CAD, Type II DM, HTN, COPD and recent diagnosis of bronchitis who presented to the ER with c/o worsened SOB and appeared to be septic and was admitted for possible sepsis secondary to bronchitis however immediately after he arrived to the ICU he had a very large melanotic stool concerning for GI bleed. - Patient Problems (1) Upper GI bleed Current Visit: Yes Status: Acute Code(s): K92.2 - GASTROINTESTINAL HEMORRHAGE, UNSPECIFIED SNOMED Code(s): 33936361 Comment: EGD showed non bleeding ulcers. Changed to oral omeprazole per Dr. Ramirez. Diet has been advanced. H/H stable. (2) Acute blood loss anemia Current Visit: Yes Status: Acute Code(s): D62 - ACUTE POSTHEMORRHAGIC ANEMIA SNOMED Code(s): 678346801 Comment: H/H stable. Continue to monitor. (3) Hypotension Current Visit: Yes Status: Acute Comment: Resolved after aggressive IVF hydration and 1 unit PRBC. (4) Leukocytosis Current Visit: Yes Status: Acute Code(s): D72.829 - ELEVATED WHITE BLOOD CELL COUNT, UNSPECIFIED SNOMED Code(s): 353221492 Comment: WBC continue to climb slowly. He had 1 low grade temp early this AM. No other clear signs of infection. Will repeat a pCXR now to eval for infiltrate. Mental status is improving so I doubt meningitis or that an LP is needed. Will taper the prednisone to see if that helps the leukocytosis. Continue to monitor for clear signs of infection. (5) Agitation Current Visit: Yes Status: Acute Code(s): R45.1 - RESTLESSNESS AND AGITATION SNOMED Code(s): 53243076 Comment: Yesterday afternoon (following the EGD) he was much improved. Sitting on the edge of the bed eating and interacting with his family. This am he was not agitated but I had a difficult time interacting with the patient I think because I awakened him and he did not have his hearing aides in place. Will reassess later this afternoon. (6) Dyspnea Current Visit: Yes Status: Acute Code(s): R06.00 - DYSPNEA, UNSPECIFIED SNOMED Code(s): 339999367 Comment: RR is stable and his lungs sound clear on my limited exam this AM however have sounded clear the entire hospitalization. Will continue ceftriaxone and azithro to complete a full course of therapy though it is not clear there is a bronchitis or pna. pCXR ordered for today. (7) Type 2 diabetes mellitus Current Visit: Yes Status: Chronic Comment: Sugars are slightly better today. Continue lantus at current dose and monitor blood sugars. Continue to hold oral hypoglycemics for now. (8) Hypercholesteremia Current Visit: Yes Status: Chronic Code(s): E78.0 - PURE HYPERCHOLESTEROLEMIA * DO NOT USE * SNOMED Code(s): 25666048 Comment: Continue statin if he is able to take his meds. (9) DVT prophylaxis Current Visit: Yes Status: Acute Code(s): VTZ4925 - SNOMED Code(s): 267822309 Comment: SCDs only secondary to GI bleed (10) Full code status Current Visit: Yes Status: Acute Code(s): Z78.9 - OTHER SPECIFIED HEALTH STATUS SNOMED Code(s): 792012906
[2016-10-15 08:41] LABS: Hematocrit 25 % (42-52); Hemoglobin 8.3 g/dl (14.0-18.0); Mean Corpuscular HGB Conc 34 g/dl (31-36); Mean Corpuscular Hemoglobin 30 pg (27-31); Mean Corpuscular Volume 87 fL (80-94); Mean Platelet Volume 8 um3 (7.4-10.4); Red Blood Count 2.81 10^6/ul (4.0-5.4); Red Cell Distribution Width 14 % (10.5-15); White Blood Count 13.7 10^3/ul (3.5-10.8)
[2016-10-15 08:49] LABS: BUN/Creatinine Ratio 26.7 (8-20); Calcium 7.1 mg/dL (8.6-10.3); EGFR African American 90.7 (>60); EGFR Non-African American 70.5 (>60); Potassium 3.3 mmol/L (3.5-5.0)
[2016-10-15] MEDS ORDERED: Omeprazole CAP* 20 MG PO SCH (09:00)
[2016-10-15] MEDS: Mometasone/Formoter 200/5 MDI INH SCH ×2 (09:11→21:12)
--- NOTE | 2016-10-15 10:30 | RAD ---
HISTORY: Evaluate for infiltrate COMPARISONS: October 11, 2016 VIEWS:1: Single frontal portable view of the chest at 10:00 AM FINDINGS: LINES AND TUBES: None. CARDIOMEDIASTINAL SILHOUETTE: The cardiomediastinal silhouette is normal for portable technique. PLEURA: The costophrenic angles are sharp. No pleural abnormalities are noted. LUNG PARENCHYMA: The lung volumes are low. The lungs are clear accounting for the phase of inspiration. ABDOMEN: The upper abdomen is clear. There is no subphrenic gas. BONES AND SOFT TISSUES: No bone or soft tissue abnormalities are noted. IMPRESSION: NO ACTIVE CARDIOPULMONARY DISEASE.
[2016-10-15] MEDS: Insulin GLARGINE(*) 1 UNITS UNIT SUBCUT SCH (11:11)
[2016-10-15] MEDS: Metoprolol Tartrate TAB* 25 MG PO SCH ×2 (11:14→21:25)
[2016-10-15] MEDS: Atorvastatin* 20 MG TAB PO SCH (11:14)
[2016-10-15] MEDS: Potassium Chloride LIQUID* 20 MEQ PACKET PO ONE ×2 (11:14→11:41)
[2016-10-15] MEDS: KCL 20 MEQ/100 ML IVPREMIX* 20 MEQ/100 ML BAG IV SCH ×2 (12:20→15:55)
--- NOTE | 2016-10-15 13:56 | PRO ---
DATE OF PROCEDURE: 10/14/16 - ROOM #[id number] PROCEDURE: EGD. INDICATIONS: Anemia, iron deficiency. REFERRING PHYSICIAN: Intensive care unit. MEDICATIONS GIVEN: No Demerol. 2 mg IV Versed. DESCRIPTION OF PROCEDURE: After the EGD procedure including the risks, benefits , and alternatives not limited to perforation, surgery, and/or were explained to the patient, written consent was then obtained. IV medication was given. Consent was obtained from his and a bite-block was placed between the teeth. An Olympus gastroscope was then inserted into the patient's mouth, advanced down the esophagus, into the stomach, into the distal duodenum. In the esophagus, at the GE junction, he did have very mild erosive esophagitis. No bleeding was seen. Scope was advanced through the GE junction into the body of the stomach. Retroflex view was unremarkable. Forward view did reveal very mild gastritis. Biopsy was obtained for H. pylori. Scope was advanced through a widely patent pylorus into the duodenal bulb, into the distal duodenum, both of which were unremarkable. Scope was then withdrawn from the patient. He tolerated the procedure well and was returned to the care of the intensive care unit staff in stable condition. IMPRESSION: 1. Complete upper endoscopy into the distal duodenum with biopsies. 2. Few small nonbleeding gastric ulcers, status post biopsy. 3. I will follow up on the biopsy. He can resume a diet and he can switch from IV to oral Protonix. [id number]/[facility] #: [id number] MTDD
[2016-10-15] MEDS ORDERED: NS 0.9% 1000 ML* 1,000 ML IV SCH (16:45)
[2016-10-15] MEDS: cefTRIAXone VIAL(*) 1,000 MG in NS 0.9% 50 ML* 50 ML IVPB SCH (18:00)
[2016-10-15] MEDS: Montelukast Sodium TAB* 10 MG PO SCH (18:24)
[2016-10-15] MEDS: Azithromycin IV(*) 500 MG in NS 0.9% 250 ML* 250 ML IVPB SCH (18:46)
[2016-10-15] MEDS ORDERED: methylPREDNISolone SOD 40 MG* 1 ML VIAL IV ONE (19:35)
[2016-10-15] MEDS ORDERED: Metoprolol Tartrate IV* 1 MG/ML 5 ML VIAL IV ONE (19:35)
[2016-10-15] MEDS ORDERED: Metoprolol Tartrate IV* 1 MG/ML 5 ML VIAL ONE (21:15)
[2016-10-15] MEDS ORDERED: methylPREDNISolone SOD 40 MG* 1 ML VIAL ONE (21:15)
[2016-10-15] MEDS: NS 0.45% 1000 ML BAG* 1,000 ML IV SCH (23:19)
[2016-10-16] MEDS: Insulin LISPRO* 1 UNITS UNIT SUBCUT SCH ×6 (02:01→22:37)
[2016-10-16 06:29] LABS: Hematocrit 26 % (42-52); Hemoglobin 8.7 g/dl (14.0-18.0)
[2016-10-16 06:46] LABS: Potassium 3.8 mmol/L (3.5-5.0)
[2016-10-16] MEDS: Lansoprazole SOLUTAB* 30 MG PO SCH (08:24)
[2016-10-16] MEDS: Mometasone/Formoter 200/5 MDI INH SCH ×2 (08:24→20:21)
[2016-10-16] MEDS: Atorvastatin* 20 MG TAB PO SCH (08:24)
[2016-10-16] MEDS: Metoprolol Tartrate TAB* 25 MG PO SCH ×2 (08:24→20:58)
[2016-10-16] MEDS ORDERED: predniSONE TAB* 20 MG PO SCH (09:00)
[2016-10-16] MEDS: Insulin GLARGINE(*) 1 UNITS UNIT SUBCUT SCH (09:51)
--- NOTE | 2016-10-16 11:21 | RAD ---
HISTORY: Stroke COMPARISONS: Head CT dated October 13, 2016 TECHNIQUE: The following sequences were obtained of the head: Sagittal T1-weighted images, axial T2-weighted images, axial FLAIR images, axial susceptibility weighted images, axial T1-weighted images. Additionally, axial diffusion-weighted images were obtained with calculated apparent diffusion coefficients. FINDINGS: HEMORRHAGE/INFARCT: There is a punctate focus of restricted diffusion of the anterior parietal lobe on the right. There is no hemorrhage. Elsewhere, there is no hemorrhage or acute infarct MASSES/SHIFT: There is no mass or shift. EXTRA-AXIAL SPACES/MENINGES: There are no extra-axial fluid collections. SULCI AND VENTRICLES: There is diffuse and proportional enlargement of the sulci and ventricles. CEREBRUM: There is elevated T2/FLAIR signal within the periventricular and subcortical white matter, and corresponding to the restricted diffusion in the cortex of intraoperative lobe on the right BRAINSTEM: There are no focal parenchymal abnormalities. CEREBELLUM: There are no focal parenchymal abnormalities. The cerebellar tonsils are normal in size and position. SELLA: The sella is normal. PINEAL: The pineal region is clear. CP ANGLE/TEMPORAL BONES: The labyrinthine structures are grossly normal. VESSELS: Normal flow-voids are noted within the visualized vertebral vasculature. DIFFUSION ABNORMALITIES: As noted above, there is a punctate focus of restricted diffusion within the cortex of anterior parietal lobe on the right PARANASAL SINUSES/MASTOIDS: The paranasal sinuses are clear. There are small bilateral mastoid effusions. ORBITS: The orbits are unremarkable. BONES AND SOFT TISSUE: No bone or soft tissue abnormalities are noted. OTHER: None IMPRESSION: 1. PUNCTATE, SUBACUTE, NONHEMORRHAGIC INFARCT OF THE RIGHT ANTERIOR PARIETAL LOBE. 2. DIFFUSE INVOLUTIONAL CHANGE. 3. ELEVATED T2/FLAIR SIGNAL IN THE PERIVENTRICULAR AND SUBCORTICAL WHITE MATTER, NONSPECIFIC BUT SUGGESTIVE OF CHRONIC SMALL VESSEL ISCHEMIA. 4. SMALL BILATERAL MASTOID EFFUSIONS
[2016-10-16] MEDS: NS 0.45% 1000 ML BAG* 1,000 ML IV SCH (11:22)
[2016-10-16 13:47] LABS: HDL Cholesterol 45.9 mg/dL
[2016-10-16] MEDS ORDERED: Iodixanol* (CONTRAST) 320 MG/ML 100 ML SDV IV ONE (15:15)
--- NOTE | 2016-10-16 15:30 | PN ---
Subjective Date of Service: 10/16/16 Interval History: Pt is feeling ok. He denies any pain. No SOB. He does not think his speech is any better than yesterday. His thinks his slight R facial droop is slightly better today than yesterday. Objective Active Medications: Acetaminophen (Tylenol Tab*) 650 mg PO Q6H PRN PRN Reason: FEVER/PAIN Last Admin: 10/14/16 18:20 Dose: 650 mg Albuterol (Ventolin 2.5 Mg/3 Ml Neb.Shayla*) 2.5 mg INH Q2H PRN PRN Reason: SOB/WHEEZING Last Admin: 10/14/16 20:41 Dose: 2.5 mg Aspirin (Aspirin Supp*) 150 mg MS DAILY [facility] Atorvastatin Calcium (Lipitor*) 80 mg PO DAILY [facility] Ceftriaxone Sodium 1,000 mg/ (Sodium Chloride) 50 mls @ 200 mls/hr IVPB Q24H [facility] Last Admin: 10/15/16 18:00 Dose: 200 mls/hr Azithromycin 500 mg/ Sodium (Chloride) 250 mls @ 250 mls/hr IVPB Q24H [facility] Last Admin: 10/15/16 18:46 Dose: 250 mls/hr Insulin Glargine (Lantus(*)) 8 units SUBCUT Q24H [facility] Last Admin: 10/16/16 09:51 Dose: 8 unit Insulin Human Lispro (Humalog*) 0 units SUBCUT Q4H [facility] PRN Reason: Protocol Last Admin: 10/16/16 14:35 Dose: 6 units Iodixanol (Visipaque* 320 (Contrast)) 80 ml IV ONCE ONE Stop: 10/16/16 15:16 Lansoprazole (Prevacid Solutab*) 30 mg PO DAILY [facility] Last Admin: 10/16/16 08:24 Dose: 30 mg Metoprolol Tartrate (Lopressor Tab*) 25 mg PO Q12HR [facility] Mometasone Furoate/Formoterol Fumar (Dulera 200/5 Mdi*) 2 puff INH BID [facility] Last Admin: 10/16/16 08:24 Dose: 2 puff Montelukast Sodium (Singulair Tab*) 10 mg PO QPM [facility] Last Admin: 10/15/16 18:24 Dose: Not Given Ondansetron HCl (Zofran Inj*) 4 mg IV Q6H PRN PRN Reason: NAUSEA Prednisone (Deltasone Tab*) 30 mg PO DAILY [facility] Vital Signs 10/15/16 10/15/16 10/15/16 15:26 15:44 15:56 Temperature 97.7 F Pulse Rate 88 80 Respiratory 22 26 Rate Blood Pressure 135/69 146/71 (mmHg) O2 Sat by Pulse 97 96 Oximetry 10/15/16 10/15/16 10/15/16 16:00 17:00 18:00 Temperature Pulse Rate 78 88 89 Respiratory 20 27 22 Rate Blood Pressure 133/82 178/82 150/84 (mmHg) O2 Sat by Pulse 96 93 94 Oximetry 10/15/16 10/15/16 10/15/16 19:00 19:01 19:49 Temperature 98.3 F Pulse Rate 86 89 Respiratory 20 20 Rate Blood Pressure 153/71 (mmHg) O2 Sat by Pulse 96 96 Oximetry 10/15/16 10/15/16 10/15/16 20:00 21:00 22:00 Temperature Pulse Rate 89 87 74 Respiratory 23 22 19 Rate Blood Pressure 153/83 173/79 160/75 (mmHg) O2 Sat by Pulse 97 96 98 Oximetry 10/15/16 10/15/16 10/15/16 22:11 23:00 23:40 Temperature 97.8 F Pulse Rate 72 69 Respiratory 23 14 Rate Blood Pressure 154/57 (mmHg) O2 Sat by Pulse 98 98 Oximetry 10/16/16 10/16/16 10/16/16 00:00 00:01 01:00 Temperature Pulse Rate 70 70 65 Respiratory 13 12 13 Rate Blood Pressure 143/80 150/59 (mmHg) O2 Sat by Pulse 96 96 98 Oximetry 10/16/16 10/16/16 10/16/16 02:00 02:12 03:00 Temperature Pulse Rate 64 88 72 Respiratory 16 24 16 Rate Blood Pressure 149/59 159/64 (mmHg) O2 Sat by Pulse 97 96 97 Oximetry 10/16/16 10/16/16 10/16/16 04:00 05:00 06:00 Temperature 97.8 F Pulse Rate 68 81 78 Respiratory 17 18 19 Rate Blood Pressure 162/75 158/77 172/93 (mmHg) O2 Sat by Pulse 99 98 97 Oximetry 10/16/16 10/16/16 10/16/16 07:00 07:38 08:00 Temperature 99.3 F Pulse Rate 87 Respiratory 21 17 Rate Blood Pressure 174/73 (mmHg) O2 Sat by Pulse 96 Oximetry 10/16/16 10/16/16 10/16/16 08:11 08:43 09:00 Temperature Pulse Rate 79 Respiratory 26 21 20 Rate Blood Pressure 142/71 115/60 (mmHg) O2 Sat by Pulse 96 Oximetry 10/16/16 10/16/16 10/16/16 10:00 10:03 11:00 Temperature Pulse Rate 79 Respiratory 19 22 Rate Blood Pressure (mmHg) O2 Sat by Pulse 100 Oximetry 10/16/16 10/16/16 10/16/16 11:18 11:24 11:30 Temperature 98.4 F Pulse Rate 81 85 Respiratory 20 21 Rate Blood Pressure 138/70 (mmHg) O2 Sat by Pulse 96 95 Oximetry 10/16/16 10/16/16 10/16/16 11:45 12:00 12:15 Temperature Pulse Rate 86 88 88 Respiratory 22 20 21 Rate Blood Pressure 151/81 142/80 130/65 (mmHg) O2 Sat by Pulse 95 96 94 Oximetry 10/16/16 10/16/16 10/16/16 12:30 12:45 13:00 Temperature Pulse Rate 86 86 88 Respiratory 19 22 23 Rate Blood Pressure 130/92 149/66 153/86 (mmHg) O2 Sat by Pulse 98 95 95 Oximetry 10/16/16 10/16/16 10/16/16 13:15 13:30 13:45 Temperature Pulse Rate 89 93 89 Respiratory 24 22 22 Rate Blood Pressure 128/65 149/70 151/76 (mmHg) O2 Sat by Pulse 97 93 96 Oximetry 10/16/16 10/16/16 10/16/16 14:00 14:15 14:24 Temperature Pulse Rate 86 88 86 Respiratory 20 21 22 Rate Blood Pressure 145/77 148/73 (mmHg) O2 Sat by Pulse 96 95 95 Oximetry 10/16/16 15:11 Temperature 97.5 F Pulse Rate 89 Respiratory 16 Rate Blood Pressure 150/83 (mmHg) O2 Sat by Pulse 96 Oximetry Oxygen Devices in Use Now: None Appearance: Elderly male sitting up in a chair, NAD Eyes: No Scleral Icterus Ears/Nose/Mouth/Throat: Mucous Membranes Moist Respiratory: Symmetrical Chest Expansion and Respiratory Effort, Clear to Auscultation Cardiovascular: NL Sounds; No Murmurs; No JVD, RRR, No Edema Abdominal: NL Sounds; No Tenderness; No Distention Extremities: No Clubbing, Cyanosis Skin: No Rash or Ulcers, No Nodules or Sclerosis Neurological: Alert and Oriented x 3 Result Diagrams: 10/16/16 06:00 10/16/16 06:00 Additional Lab and Data: Lab Results 10/11/16 10/11/16 10/11/16 Range/Units 17:05 17:05 17:05 WBC 17.0 H (3.5-10.8) 10^3/ul RBC 3.77 L (4.0-5.4) 10^6/ul Hgb 11.2 L (14.0-18.0) g/dl Hct 34 L (42-52) % MCV 90 (80-94) fL MCH 30 (27-31) pg MCHC 33 (31-36) g/dl RDW 15 (10.5-15) % Plt Count 302 (150-450) 10^3/ul MPV 9 (7.4-10.4) um3 Neut % (Auto) 88.5 H (38-83) % Lymph % (Auto) 7.1 L (25-47) % [place] % (Auto) 4.2 (1-9) % Eos % (Auto) 0 (0-6) % Baso % (Auto) 0.2 (0-2) % Absolute Neuts (auto) 15.1 H (1.5-7.7) 10^3/ul Absolute Lymphs (auto) 1.2 (1.0-4.8) 10^3/ul Absolute Monos (auto) 0.7 (0-0.8) 10^3/ul Absolute Eos (auto) 0 (0-0.6) 10^3/ul Absolute Basos (auto) 0 (0-0.2) 10^3/ul Absolute Nucleated RBC 0 10^3/ul Nucleated RBC % 0 INR (Anticoag Therapy) (0.89-1.11) ABG pH (7.35-7.45) ABG pCO2 (35-45) mmHg ABG pO2 (80-100) mmHg ABG HCO3 (19-31) mmol/L ABG O2 Saturation (95-98) % ABG Base Excess (-2.0-2.0) Sodium 129 L (133-145) mmol/L Potassium 5.5 H D (3.5-5.0) mmol/L Chloride 98 L (101-111) mmol/L Carbon Dioxide 17 L (22-32) mmol/L Anion Gap 14 H (2-11) mmol/L BUN 49 H (6-24) mg/dL Creatinine 1.48 H (0.67-1.17) mg/dL Est GFR ( Amer) 58.4 (>60) Est GFR (Non-Af Amer) 45.4 (>60) BUN/Creatinine Ratio 33.1 H (8-20) Glucose 491 H (70-100) mg/dL Lactic Acid 6.7 H* (0.5-2.0) mmol/L Calcium 8.3 L (8.6-10.3) mg/dL Total Bilirubin 0.40 (0.2-1.0) mg/dL AST 23 (13-39) U/L ALT 22 (7-52) U/L Alkaline Phosphatase 39 (34-104) U/L Troponin I 0.03 (<0.04) ng/mL C-Reactive Protein 1.15 (< 5.00) mg/L B-Natriuretic Peptide ( - 100) pg/mL Total Protein 5.2 L (6.4-8.9) g/dL Albumin 3.3 (3.2-5.2) g/dL Globulin 1.9 L (2-4) g/dL Albumin/Globulin Ratio 1.7 (1-3) 10/11/16 10/11/16 10/11/16 Range/Units 17:05 17:05 17:40 WBC (3.5-10.8) 10^3/ul RBC (4.0-5.4) 10^6/ul Hgb (14.0-18.0) g/dl Hct (42-52) % MCV (80-94) fL MCH (27-31) pg MCHC (31-36) g/dl RDW (10.5-15) % Plt Count (150-450) 10^3/ul MPV (7.4-10.4) um3 Neut % (Auto) (38-83) % Lymph % (Auto) (25-47) % [place] % (Auto) (1-9) % Eos % (Auto) (0-6) % Baso % (Auto) (0-2) % Absolute Neuts (auto) (1.5-7.7) 10^3/ul Absolute Lymphs (auto) (1.0-4.8) 10^3/ul Absolute Monos (auto) (0-0.8) 10^3/ul Absolute Eos (auto) (0-0.6) 10^3/ul Absolute Basos (auto) (0-0.2) 10^3/ul Absolute Nucleated RBC 10^3/ul Nucleated RBC % INR (Anticoag Therapy) 0.98 (0.89-1.11) ABG pH 7.40 (7.35-7.45) ABG pCO2 23 L (35-45) mmHg ABG pO2 77 L (80-100) mmHg ABG HCO3 17.9 L (19-31) mmol/L ABG O2 Saturation 97.5 (95-98) % ABG Base Excess -9.0 L (-2.0-2.0) Sodium (133-145) mmol/L Potassium (3.5-5.0) mmol/L Chloride (101-111) mmol/L Carbon Dioxide (22-32) mmol/L Anion Gap (2-11) mmol/L BUN (6-24) mg/dL Creatinine (0.67-1.17) mg/dL Est GFR ( Amer) (>60) Est GFR (Non-Af Amer) (>60) BUN/Creatinine Ratio (8-20) Glucose (70-100) mg/dL Lactic Acid (0.5-2.0) mmol/L Calcium (8.6-10.3) mg/dL Total Bilirubin (0.2-1.0) mg/dL AST (13-39) U/L ALT (7-52) U/L Alkaline Phosphatase (34-104) U/L Troponin I (<0.04) ng/mL C-Reactive Protein (< 5.00) mg/L B-Natriuretic Peptide 74 ( - 100) pg/mL Total Protein (6.4-8.9) g/dL Albumin (3.2-5.2) g/dL Globulin (2-4) g/dL Albumin/Globulin Ratio (1-3) Microbiology and Other Data: Microbiology 10/11/16 23:20 Stool Gross Appearance - Final Stool Stool Occult Blood ([facility]) - Final 10/11/16 21:15 Nasal Screen MRSA (PCR)([facility]) - Final Nasal Mrsa Negative 10/11/16 21:15 Influenza Types A,B Antigen ([facility]) - Final Nasopharyngeal Specimen received for Influenza A/B Molecular testing Assess/Plan/Problems-Billing Mr Simmons is an 85 yo M who has a h/o CAD, Type II DM, HTN, COPD and recent diagnosis of bronchitis who presented to the ER with c/o worsened SOB and appeared to be septic and was admitted for possible sepsis secondary to bronchitis however immediately after he arrived to the ICU he had a very large melanotic stool concerning for GI bleed. - Patient Problems (1) CVA (cerebral vascular accident) Current Visit: Yes Status: Acute Code(s): I63.9 - CEREBRAL INFARCTION, UNSPECIFIED SNOMED Code(s): 329710612 Comment: MRI done this AM shows a subacute infarct in the anterior R parietal lobe. This explains his expressive aphasia and mild weakness on the left as well as his mild R facial droop. Will give ASA rectally today and discuss starting oral low dose ASA with GI. Will check CTA head and neck and echo with bubble study. Neuro consult appreciated. PT/OT/speech and PMRU eval. (2) Upper GI bleed Current Visit: Yes Status: Acute Code(s): K92.2 - GASTROINTESTINAL HEMORRHAGE, UNSPECIFIED SNOMED Code(s): 55966279 Comment: EGD showed non bleeding ulcers. Changed to oral omeprazole per Dr. Ramirez. Diet has been advanced. H/H stable. I am starting ASA rectally given the ulcers and new finding of CVA. (3) Acute blood loss anemia Current Visit: Yes Status: Acute Code(s): D62 - ACUTE POSTHEMORRHAGIC ANEMIA SNOMED Code(s): 218110616 Comment: H/H stable. Continue to monitor. (4) Hypotension Current Visit: Yes Status: Acute Comment: Resolved after aggressive IVF hydration and 1 unit PRBC. (5) Leukocytosis Current Visit: Yes Status: Acute Code(s): D72.829 - ELEVATED WHITE BLOOD CELL COUNT, UNSPECIFIED SNOMED Code(s): 475491735 Comment: Repeat WBC tomorrow. No clear signs of infection. Will stop ceftriaxone and azithromycin after todays doses. He will have had 5 days with out a clear pulmonary infection. (6) Agitation Current Visit: Yes Status: Acute Code(s): R45.1 - RESTLESSNESS AND AGITATION SNOMED Code(s): 08347066 Comment: Agitation has resolved. (7) Dyspnea Current Visit: Yes Status: Acute Code(s): R06.00 - DYSPNEA, UNSPECIFIED SNOMED Code(s): 638465521 Comment: No signs of pulmonary infection at this time. Stop ceftriaxone and azithro as above. (8) Type 2 diabetes mellitus Current Visit: Yes Status: Chronic Comment: Sugars are still elevated. Holding oral hypoglycemics for now. Increase lantus to 10units daily. (9) Hypercholesteremia Current Visit: Yes Status: Chronic Code(s): E78.0 - PURE HYPERCHOLESTEROLEMIA * DO NOT USE * SNOMED Code(s): 63506342 Comment: Continue statin if he is able to take his meds. (10) DVT prophylaxis Current Visit: Yes Status: Acute Code(s): JJP0147 - SNOMED Code(s): 881203403 Comment: SCDs only secondary to GI bleed (11) Full code status Current Visit: Yes Status: Acute Code(s): Z78.9 - OTHER SPECIFIED HEALTH STATUS SNOMED Code(s): 117124621
--- NOTE | 2016-10-16 16:44 | RAD ---
Indication: Stroke. CTA of the neck and head was performed after IV contrast administration. Administered 80.0 ml of VISIPAQUE 320 mgi/ml was given according to hospital protocol. Coronal and sagittal reconstructed images were obtained. The origins of the great vessels are unremarkable. There is a separate origin of the left vertebral artery from the aortic arch. This is a normal variant. Some minimal atherosclerosis is noted at the brachiocephalic artery. The right common carotid artery demonstrates no significant stenosis. Left common carotid artery demonstrates no significant stenosis. Minimal plaque is noted at the proximal internal carotid arteries bilaterally. No evidence of carotid artery dissection is noted. The visualized vertebral arteries are unremarkable. The intracranial circulation demonstrates intracranial carotid artery to the unremarkable with no evidence of branch occlusion. Atherosclerosis of the cavernous portions of the internal carotid arteries are noted. Anterior and middle cerebral arteries are unremarkable. Vertebral arteries, basilar artery and posterior cerebral arteries are unremarkable. No evidence of branch occlusion or aneurysmal dilatation is noted. IMPRESSION: MINIMAL ATHEROSCLEROSIS AT THE ORIGIN OF THE INTERNAL CAROTID ARTERIES BILATERALLY. INTRACRANIAL CIRCULATION DEMONSTRATES ATHEROSCLEROSIS OF THE CAVERNOUS PORTIONS OF THE INTERNAL CAROTID ARTERY HOWEVER NO EVIDENCE OF BRANCH OCCLUSION OR ANEURYSMAL DILATATION IS NOTED.
[2016-10-16] MEDS: Aspirin EC Low Dose* 81 MG TAB.EC PO SCH (17:19)
[2016-10-16] MEDS: cefTRIAXone VIAL(*) 1,000 MG in NS 0.9% 50 ML* 50 ML IVPB SCH (17:59)
[2016-10-16] MEDS: Azithromycin IV(*) 500 MG in NS 0.9% 250 ML* 250 ML IVPB SCH (18:32)
[2016-10-16] MEDS: Montelukast Sodium TAB* 10 MG PO SCH (18:32)
--- NOTE | 2016-10-16 20:25 | CONS ---
NEUROLOGY CONSULTATION: DATE OF CONSULT/DICTATION: 10/16/16 PATIENT OF: Dr. Carmona and Dr. Blevins. HISTORY: This is an 85-year-old man I am asked to evaluate for new onset of stroke in the setting of an acute hospitalization. He has had a couple of weeks ' history of an acute bronchitis prior to admission on 10/11/16. He had worsening shortness of breath and then slumped and was brought into the emergency room and was treated for a severe sepsis but also had melanotic stool and an acute drop in his hematocrit from the 6th to later the same day it dropped from the 11.2 to 7.8. He had become agitated at that time as well and received packed red cells. He had been confused and agitated and as he was stabilized over the past couple of days, it was noted that he had difficulty speaking with word finding problems and a change in his strength on the left side with decreased left arm strength as well as some difficulty walking. He has also been diffusely tremorous. He is left handed. Initial CT scan done on showed no acute pathology but small vessel ischemic disease whereas an MRI scan done today showed a small subacute right parietal lobe infarct with some diffuse white matter disease. PAST MEDICAL HISTORY: Includes coronary artery disease status post 5 stents, type 2 diabetes, hypertension, COPD. He is status post an appendectomy. MEDICATIONS AT HOME: Included, 1. Glipizide 2.5 daily. 2. Prednisone 50 mg daily. 3. Metoprolol 25 mg b.i.d. 4. Singulair 10 mg q.p.m. 5. Nitroglycerin 0.4 p.r.n. 6. Zocor 40 mg daily. 7. VESIcare 5 mg daily. 8. Albuterol 2 puffs q.6 hours p.r.n. 9. Aspirin 81 mg daily. 10. Beclomethasone 40 mcg. 11. Plavix 75 mg daily. 12. Multivitamin 1 tab p.r.n. 13. Hydrochlorothiazide 25 mg daily. 14. Avapro 150 mg daily. MEDICATIONS HERE: Include, 1. Prednisone 40 mg daily. 2. Zofran 4 mg p.r.n. 3. Singulair 10 mg daily. 4. Metoprolol 12.5 q.12 hours. 5. Prevacid 30 mg daily. 6. Insulin 8 mg q.24 hours. 7. Azithromycin IV daily. 8. Lipitor 20 mg daily. 9. Aspirin was just begun today. SOCIAL HISTORY: He currently does not smoke. Lives with his . 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 REVIEW OF SYSTEMS: Negative in all 14 spheres other than the HPI. PHYSICAL EXAM: Vital signs: Temperature 98.4, pulse is 91, respirations 21, blood pressure 130/65. He is alert. He has word finding difficulties and difficulties naming objects. He knows his birthday when it is told to him but he has trouble finding the words and he is speaking in short phrases and this represents a significant change from him prior to his hospitalization. Cranial nerves II through XII were intact other than there was a facial asymmetry with decreased nasolabial fold on the right but when asked to smile, both sides were symmetric. Discs were sharp. Motor exam revealed diffuse resting tremor with 5- /5 strength on the left compared to the right. Reflexes were trace to 1, toes were equivocal. Sensation is grossly intact to light touch. Chest: Clear. Cardiovascular: Regular rate and rhythm. Abdomen: Soft. DIAGNOSTIC STUDIES/LAB DATA: I discussed the MRI scan above as well as his presenting laboratories. Currently his hematocrit 7.8, white count 11.2, INR is normal on admission. Initial blood gas; 7.4, pCO2 of 23, pO2 of 77. LDL was 73. His most recent BMP had a sodium of 146, calcium 7.4. His CMP on the had a total protein of 5, normal liver function tests. IMPRESSION: Mr. Simmons had a stroke in the setting of an acute drop in hematocrit secondary to a presumed gastrointestinal bleed and in the setting of sepsis. It would make sense for him to be on aspirin if possible rectally in the setting of his GI bleed. I will defer to Dr. Carmona if it is too soon and too risky but it would make sense to do if at all possible and he had been on Plavix and aspirin prior to this. I am not sure the mechanism of the stroke but it is possible that it was related to a drop in perfusion secondary to his acute hemodynamic issues and therefore, it makes sense to check the CTA to evaluate for atherosclerotic disease including in his carotids. I think it is less likely that this would be cardioembolic but I would check an echo as well with bubble study. He also has diffuse tremor and it is possible that he has had a more diffuse injury to his brain than what the MRI scan is showing. He is also on his MRI scan and of note has some diffuse white mater disease, which probably represents chronic small vessel ischemic disease. Thank you for sharing his care. [id number]/[facility] #: [id number] MARCELO
[2016-10-17] MEDS: Insulin LISPRO* 1 UNITS UNIT SUBCUT SCH ×6 (02:17→21:43)
[2016-10-17 05:09] LABS: Hematocrit 26 % (42-52); Hemoglobin 8.8 g/dl (14.0-18.0); Mean Corpuscular HGB Conc 33 g/dl (31-36); Mean Corpuscular Hemoglobin 30 pg (27-31); Mean Corpuscular Volume 91 fL (80-94); Mean Platelet Volume 9 um3 (7.4-10.4); Red Blood Count 2.92 10^6/ul (4.0-5.4); Red Cell Distribution Width 15 % (10.5-15); White Blood Count 10.8 10^3/ul (3.5-10.8)
[2016-10-17 05:29] LABS: BUN/Creatinine Ratio 25.9 (8-20); Calcium 7.7 mg/dL (8.6-10.3); EGFR Non-African American 65.3 (>60); Potassium 3.4 mmol/L (3.5-5.0)
[2016-10-17] MEDS: Lansoprazole SOLUTAB* 30 MG PO SCH (07:43)
[2016-10-17] MEDS: Atorvastatin* 80 MG TAB PO SCH (07:44)
[2016-10-17] MEDS: Metoprolol Tartrate TAB* 25 MG PO SCH ×2 (07:45→21:42)
[2016-10-17] MEDS: Aspirin EC Low Dose* 81 MG TAB.EC PO SCH (07:47)
[2016-10-17] MEDS: predniSONE TAB* 10 MG PO SCH (07:47)
[2016-10-17] MEDS ORDERED: Aspirin SUPP* 300 MG PR SCH (09:00)
[2016-10-17] MEDS: Mometasone/Formoter 200/5 MDI INH SCH ×2 (09:00→20:19)
[2016-10-17] MEDS: Insulin GLARGINE(*) 1 UNITS UNIT SUBCUT SCH (10:01)
[2016-10-17] MEDS: Potassium Chloride LIQUID* 20 MEQ PACKET PO SCH ×2 (13:16→21:43)
--- NOTE | 2016-10-17 14:44 | PN ---
Subjective Date of Service: 10/17/16 Interval History: HOSPITALIST PROGRESS NOTE Patient seen and examined at bedside. He feels better today. Was able to walk with PT. His family also feels he's adelso confused, speech is clearer and overall he seems improved. Family History: Unchanged from Admission Social History: Unchanged from Admission Past Medical History: Unchanged from Admission Objective Active Medications: Acetaminophen (Tylenol Tab*) 650 mg PO Q6H PRN PRN Reason: FEVER/PAIN Last Admin: 10/14/16 18:20 Dose: 650 mg Albuterol (Ventolin 2.5 Mg/3 Ml Neb.Shayla*) 2.5 mg INH Q2H PRN PRN Reason: SOB/WHEEZING Last Admin: 10/14/16 20:41 Dose: 2.5 mg Aspirin (Aspirin Ec Low Dose*) 81 mg PO DAILY [facility] Last Admin: 10/17/16 07:47 Dose: 81 mg Atorvastatin Calcium (Lipitor*) 80 mg PO DAILY [facility] Last Admin: 10/17/16 07:44 Dose: 80 mg Insulin Glargine (Lantus(*)) 8 units SUBCUT Q24H [facility] Last Admin: 10/17/16 10:01 Dose: 8 unit Insulin Human Lispro (Humalog*) 0 units SUBCUT ACHS [facility] PRN Reason: Protocol Last Admin: 10/17/16 11:14 Dose: Not Given Lansoprazole (Prevacid Solutab*) 30 mg PO DAILY [facility] Last Admin: 10/17/16 07:43 Dose: 30 mg Metoprolol Tartrate (Lopressor Tab*) 25 mg PO Q12HR [facility] Last Admin: 10/17/16 07:45 Dose: 25 mg Mometasone Furoate/Formoterol Fumar (Dulera 200/5 Mdi*) 2 puff INH BID [facility] Last Admin: 10/17/16 09:00 Dose: 2 puff Montelukast Sodium (Singulair Tab*) 10 mg PO QPM [facility] Last Admin: 10/16/16 18:32 Dose: 10 mg Ondansetron HCl (Zofran Inj*) 4 mg IV Q6H PRN PRN Reason: NAUSEA Potassium Chloride (Klor-Con Liquid*) 20 meq PO BID [facility] Last Admin: 10/17/16 13:16 Dose: 20 meq Prednisone (Deltasone Tab*) 30 mg PO DAILY [facility] Last Admin: 10/17/16 07:47 Dose: 30 mg Vital Signs 10/17/16 10/17/16 10/17/16 07:52 08:58 11:33 Temperature 98.1 F Pulse Rate 76 78 Respiratory 20 16 16 Rate Blood Pressure 149/80 (mmHg) O2 Sat by Pulse 98 98 Oximetry Oxygen Devices in Use Now: None Appearance: Pleasant elderly male sitting up in a chair in NAD. Eyes: No Scleral Icterus Ears/Nose/Mouth/Throat: Mucous Membranes Moist Neck: Trachea Midline Respiratory: Symmetrical Chest Expansion and Respiratory Effort, Clear to Auscultation Cardiovascular: RRR - Normal S1 and S2 Abdominal: NL Sounds; No Tenderness; No Distention Neurological: Alert and Oriented x 3, - - mild disarthria, mild left arm weakness Lines/Tubes/Other Access: Clean, Dry and Intact Peripheral IV Nutrition: Taking PO's Result Diagrams: 10/17/16 04:47 10/17/16 04:47 Assess/Plan/Problems-Billing Mr Simmons is an 85 yo M who has a h/o CAD, Type II DM, HTN, COPD admitted with sepsis, bronchitis, complicated by GI bleed and CVA. - Patient Problems (1) CVA (cerebral vascular accident) Comment: - MRI brain showed a subacute infarct in the anterior R parietal lobe. - CTA head and neck showed no significant stenosis. - Awaiting echo with bubble study. - Neuro follow up appreciated. - Will continue low dose Aspirin, but will wait 1-2 weeks before resuming Plavix. - PT/OT/speech and PMRU eval. - Neurologial checks. (2) Upper GI bleed Comment: - EGD showed non bleeding ulcers. - Continue Omeprazole. (3) Acute blood loss anemia Comment: - H/H remains stable. Continue to monitor. (4) Type 2 diabetes mellitus Comment: - Continue Lantus and Lispro SS. (5) DVT prophylaxis Comment: - Pharmacological prophylaxis is contraindicated in the setting of UGI bleed. - SCDs. (6) Full code status Status and Disposition: Inpatient.
--- NOTE | 2016-10-17 17:24 | ECHO ---
Patient: DALE LANGSTON [facility] Rec#: [id number] : 1930 Date: 10/17/2016 Age: 85y Height: 160 cm / 63.0 in Weight: 81 kg / 178.5 lbs Sex: M BSA: 1.84 Room#: 433 Admit Date#: 10/16/2016 Type: Inpatient Referring: Manisha Carmona DO Reading: Stu Nicholas MD [employer] Vice President: Stephen Mckinnon RDCS Transthoracic Echocardiogram Indication: CVA BP: 161/66 HR: 60 Rhythm: NSR Findings History: COPD exacerbation, CAD, PCI, DM, HLD Technical Comments: The study quality is good. Completed 1545 Left Ventricle: The left ventricular chamber size is normal. There is a prominent septal knuckle. Global left ventricular wall motion and contractility are within normal limits. There is normal left ventricular systolic function. The estimated ejection fraction is greater than 65%. Abnormal left ventricular diastolic filling is observed, consistent with impaired relaxation. Left Atrium: The left atrial chamber size is normal. Right Ventricle: The right ventricular cavity size is normal. The right ventricular global systolic function is normal. Right Atrium: The right atrial cavity size is normal. Interatrial septum appears intact without evidence of shunting. The bubble study is negative. Aortic Valve: The aortic valve is trileaflet. No aortic leaflet calcification is visualized. Mild aortic cusp sclerosis is present. There is mild aortic regurgitation. There is no evidence of aortic stenosis. Mitral Valve: The mitral valve leaflets appear normal. There is a trace of mitral regurgitation. There is no evidence of mitral stenosis. Tricuspid Valve: The tricuspid valve appears normal in structure and function. There is no evidence of tricuspid valve regurgitation. Pulmonic Valve: The pulmonic valve is doming. There is a trace pulmonic regurgitation. Pericardium: There is no pericardial effusion. Aorta: There is mild dilatation of the ascending aorta. There is no dilatation of the aortic arch. There is no dilation of the aortic root. Pulmonary Artery: The main pulmonary artery is not well visualized. Venous: The inferior vena cava appears normal in size. There is a greater than 50% respiratory change in the inferior vena cava dimension. Contrast: Normal saline was used as contrast for the bubble study. IMAGE 82 Summary: There are no significant changes when compared to the previous study done on 12/04/2015, no overt sig changes. Conclusions The left ventricular chamber size is normal. There is a prominent septal knuckle. There is normal left ventricular systolic function. The estimated ejection fraction is greater than 65%. Interatrial septum appears intact without evidence of shunting. The bubble study is negative. There is mild aortic regurgitation. There is a trace of mitral regurgitation. There is a trace pulmonic regurgitation. There is mild dilatation of the ascending aorta. There are no significant changes when compared to the previous study done on 12/04/2015, no overt sig changes. Measurements Name Value Normal Range RVIDd (AP) 2D 1.8 cm (0.9 - 2.6) RVDdMajor (2D) 3.8 cm (2.2 - 4.4) RAd ISD 4CH 5 cm (3.4 - 4.9) RA (A4C)W 2.7 cm (2.9 - 4.6) IVSd (2D) 1.1 cm (0.6 - 1) LVPWd (2D) 1.3 cm (0.6 - 1) LVIDd (2D) 5.7 cm (3.6 - 5.4) LVIDs (2D) 3.2 cm - Aortic Annulus 2 cm (1.4 - 2.6) Ao root diameter (2D) 3.8 cm (2.1 - 3.5) Ascending Ao 4.1 cm (2.1 - 3.4) Aortic arch 3.6 cm (1.8 - 3.4) LA dimension (AP) 2D 3.5 cm (2.3 - 3.8) LAd ISD 4CH 5.4 cm (2.9 - 5.3) LA ISD 4CH W 3.8 cm (2.5 - 4.5) Name Value Normal Range LA ESV SP 4CH (A/L) 46 ml - LA ESV SP 2CH (A/L) 59 ml - LA ESV BP (A/L) 54 ml - LA ESV BP (A/L) index 29 ml/m2 - LA ESV SP 4CH (MOD) 41 ml - LA ESV SP 2CH (MOD) 55 ml - Name Value Normal Range MV E-wave Vmax 0.58 m/sec - MV deceleration time 219 msec - MV A-wave Vmax 0.99 m/sec - MV E:A ratio 0.58 ratio - LV septal e' Vmax 0.04 m/sec - LV lateral e' Vmax 0.05 m/sec - LV E:e' septal ratio 14.5 ratio - LV E:e' lateral ratio 11.6 ratio - Name Value Normal Range LVOT Vmax 1 m/sec - Name Value Normal Range IVC diameter 1.8 cm - Name Value Normal Range PV Vmax 0.96 m/sec - PV peak gradient 3.7 mmHg -
[2016-10-17] MEDS: Montelukast Sodium TAB* 10 MG PO SCH (17:26)
--- NOTE | 2016-10-18 00:06 | PN ---
NEUROLOGICAL PROGRESS NOTE: DATE OF SERVICE / DICTATION: 10/17/16 - ROOM #433 PATIENT OF: Dr. France. HISTORY: Mr. Simmons is an 85-year-old man who had a small stroke with aphasia and left-sided weakness. He feels better today. His medications are unchanged from yesterday and include baby aspirin. He had 2 melanotic stools today. PHYSICAL EXAMINATION: Temperature 98.2, pulse 76, respirations 16, blood pressure 161/66. He is alert and oriented with normal speech and comprehension. He is somewhat deaf. Cranial nerves II through XII were intact. Motor exam revealed normal tone and strength other than some trace weakness on his left side. He is able to walk with a walker. Chest: Clear. Cardiovascular: Regular rate and rhythm. Abdomen is soft. DIAGNOSTIC STUDIES/LAB DATA: His CTA showed no significant stenosis. He is getting an echo of his heart and that is pending. PLAN: The plan would be to continue one antiplatelet agent for the time being. [id number]/[facility] #: [id number] MTDD
[2016-10-18 06:28] LABS: Hematocrit 27 % (42-52); Hemoglobin 8.7 g/dl (14.0-18.0)
[2016-10-18 06:44] LABS: BUN/Creatinine Ratio 24.6 (8-20); Calcium 8.1 mg/dL (8.6-10.3); EGFR African American 78.9 (>60); EGFR Non-African American 61.3 (>60); Potassium 3.5 mmol/L (3.5-5.0)
[2016-10-18 08:14] VITALS: BP 156/67
[2016-10-18] MEDS: Potassium Chloride LIQUID* 20 MEQ PACKET PO SCH (08:32)
[2016-10-18] MEDS: Insulin GLARGINE(*) 1 UNITS UNIT SUBCUT SCH (08:33)
[2016-10-18] MEDS: Atorvastatin* 80 MG TAB PO SCH (08:33)
[2016-10-18] MEDS: Aspirin EC Low Dose* 81 MG TAB.EC PO SCH (08:33)
[2016-10-18] MEDS: Metoprolol Tartrate TAB* 25 MG PO SCH (08:33)
[2016-10-18] MEDS: predniSONE TAB* 10 MG PO SCH (08:33)
[2016-10-18] MEDS: Lansoprazole SOLUTAB* 30 MG PO SCH (08:33)
[2016-10-18] MEDS: Insulin LISPRO* 1 UNITS UNIT SUBCUT SCH ×2 (08:33→12:37)
[2016-10-18] MEDS: Mometasone/Formoter 200/5 MDI INH SCH (08:58)
--- NOTE | 2016-10-19 00:35 | DS ---
CC: Dr. Blevins; Dr. Sorensen; Dr. Ramirez; Dr. Sams, [facility] DISCHARGE SUMMARY: DATE OF ADMISSION: 10/11/16 DATE OF DISCHARGE: 10/18/16 PRIMARY CARE PHYSICIAN: Dr. Blevins. DISCHARGE DIAGNOSES: 1. Severe sepsis. 2. Acute bronchitis. 3. Acute chronic obstructive pulmonary disease exacerbation. 4. Acute kidney injury. 5. Acute blood loss anemia. 6. Upper GI bleed. 7. Gastric ulcers. 8. Right parietal cerebrovascular accident. 9. Leukocytosis. 10. Incidental finding of right upper lobe nodule. 11. Acute delirium. SECONDARY DIAGNOSES: 1. Coronary artery disease status post stent. 2. Type 2 diabetes. 3. Hypertension. 4. Hyperlipidemia. 5. Chronic obstructive pulmonary disease. 6. Prostate carcinoma. MEDICATIONS: 1. Tylenol 650 mg p.o. q.6 p.r.n. pain or fever. 2. Albuterol nebulizer q.4 hours p.r.n. shortness of breath and wheezing. 3. Albuterol HFA 2 puffs inhaled q.6 hours p.r.n. shortness of breath and wheezing. 4. Aspirin 81 mg p.o. daily. 5. Atorvastatin 80 mg p.o. daily. 6. Calcium carbonate 1000 mg p.o. daily. 7. Cholecalciferol 2000 units p.o. daily. 8. Lantus 8 units subcutaneously q.24 hours. 9. Lispro sliding scale a.c., h.s. as follows: Fingerstick 131 to 150 at 2 units, 151 to 200 at 3 u nits, 201 to 250 at 6 units, 251 to 300 nine units, 301 to 350 at 12 units, 351 to 400 at 15 units, greater than 400 at 18 units, and call MD. 10. Lansoprazole SoluTab 30 mg p.o. daily. 11. Metoprolol tartrate 25 mg p.o. b.i.d. 12. Dulera 200/5 two puffs inhaled b.i.d. 13. Montelukast 10 mg p.o. q.p.m. 14. Nitroglycerin 0.4 mg sublingual q.5 minutes p.r.n. chest pain, maximum 3 doses. 15. Potassium chloride 10 mEq p.o. daily. 16. Prednisone taper as follows: 30 mg p.o. x1 day, then 20 mg p.o. for 3 days, then 10 mg p.o. for 3 days, then 5 mg p.o. for 3 days and stop. 17. VESIcare 5 mg p.o. daily. HOSPITAL COURSE: Mr. Simmons is an 85-year-old male with a past medical history as stated above that had presented to the emergency room with 1 week of fatigue, cough and shortness of breath. He was treated with steroids, albuterol but returned to emergency room 2 days later with worsening of his s ymptoms. He was found to have severe sepsis (tachycardia, tachypnea, leukocytosis, and achy eye) se condary to acute bronchitis and COPD exacerbation. He was admitted and started on ceftriaxone, Zith romax, steroids, and bronchodilators. Chest x-ray showed no evidence for pneumonia or pulmonary silvana ma. CTA of the chest showed no evidence for pulmonary embolism or pneumonia, only stigmata of COPD. Mild cardiomegaly. A 4-mm noncalcified nodule at the posterior segment of the right upper lobe wh ile grossly unchanged compared with the November 2015 exam. It is new compared with more remote CT from November 2010. Radiology recommended reassessment with noncontrast CT in 12 months' time. The patient also had a CT of the abdomen and pelvis that showed diverticulosis and fatty infiltration o f the liver. After being admitted to the intensive care unit, the patient had a large loose melanotic bowel movem ent. His hemoglobin dropped from an initial hemoglobin of 11.2 to 7.8. The patient received 1 PRBC and he was seen in consultation by Gastroenterology (Dr. Ramirez). He felt the patient was likely having an upper GI bleed considering that he is on aspirin, Plavix, and steroids. His recommendatio n was for fluid resuscitation and when more stable, to pursue an endoscopy. This was performed on an that showed a few small nonbleeding gastric ulcers. He was continued on a PPI and while in ICU, he was also delirious. This was felt to be multifactorial in the setting of infection, ster oid use, GI bleed, and hospital stay. The patient started to improve slowly. He was able to tolera te an oral diet and his H and H remained stable. He was seen in consultation by General Surgery, bu t it was felt that there was no surgical indication for this patient. Although he showed improvement, the patient was noted to have dysarthria and left hemiparesis. He w as seen in consultation. The impression was that this is likely related to a drop in perfusion seco ndary to his acute hemodynamic issues associated with sepsis and GI bleed. Neurology recommended wo rkup that included a CT of the brain without contrast that showed no acute intracranial pathology. An MRI of the brain that showed a punctate, subacute, nonhemorrhagic infarct of the right anterior p arietal lobe with diffuse involutional change and small bilateral mastoid effusion. CTA of the head showed minimal atherosclerosis at the origin of the internal carotid arteries bilaterally. Intracr anial circulation demonstrates atherosclerosis of the cavernous portions of the internal carotid art rizwana; however, no evidence of branch occlusion or aneurysm dilatation is noted. Transthoracic echoca rdiogram showed ejection fraction greater than 65% and no evidence of shunting. As the patient had developed an acute upper GI bleed, his aspirin and Plavix were discontinued, but with this new finding of an acute CVA, after discussion with Gastroenterology, low dose was resumed. His H and H has remained stable since aspirin was reintroduced. The plan would be to resume his P lavix in 1 to 2 weeks if he has no further signs of GI bleed. The patient had significant improvement of his infectious and respiratory status, no further signs o f GI bleed and he was felt to have acute needs with physical, occupational and speech therapies and he was offered a bed at [facility] to continue his rehabilitation process. The patient has a history of diabetes and his medication regimen had to be adjusted but I believe as his oral intake increases, he may need adjustment of his medications. With his CVA, the plan was t o keep his blood pressure a little bit on the higher side, so his irbesartan and hydrochlorothiazide were held but we should continue to monitor his blood pressure as I believe these medications will need to be resumed in the near future. PHYSICAL EXAMINATION: Vital Signs: Temperature 98.6, heart rate is 79, respiratory rate is 16, oxy gen saturation 96% on room air, blood pressure is 156/67. General: The patient is a pleasant elder ly male, sitting up in the chair, in no acute distress. CVS: Normal S1, S2. Regular rate and rhyt hm. Chest: Breath sounds slightly decreased with no added sounds. Abdomen: Soft. Bowel sounds ar e present. Extremities: No edema. Neuro: He is alert, awake, oriented x3. There is still mild d ysarthria and mild left hemiparesis. DIET: Consistent carb diet, honey thick liquids pureed texture. ACTIVITY: As tolerated. DISPOSITION: To [facility]. Please keep in mind that this is a summarized version of this patient's complex hospital stay. If y ou need more information, please feel free to call me at or please obtain the full [facility] record. TIME SPENT: Approximately 45 minutes were spent to complete this discharge. [id number]/[facility] #: [id number]
== END 2016-10-18 12:47 | DRG 871 ==
LOC: ED 16:56 → MED 19:56 → ICU 21:35 → MEDTELE 10-16 14:56
PROVIDERS: ADMIT Hospitalist; ATTEND Internal Medicine
PROC: 30233N1 Transfusion of Nonautologous Red Blood Cells into Peripheral Vein, Percutaneous Approach (ICD-10-PCS; 2016-10-12)
PROC: 0DB98ZX Excision of Duodenum, Via Natural or Artificial Opening Endoscopic, Diagnostic (ICD-10-PCS; principal; 2016-10-14)
PROC: 0DB68ZX Excision of Stomach, Via Natural or Artificial Opening Endoscopic, Diagnostic (ICD-10-PCS; 2016-10-14)
DX: A41.9 Sepsis, unspecified organism (principal); I63.9 Cerebral infarction, unspecified; N17.9 Acute kidney failure, unspecified; E87.2 Acidosis; J44.0 Chronic obstructive pulmonary disease with (acute) lower respiratory infection; J44.1 Chronic obstructive pulmonary disease with (acute) exacerbation; J20.9 Acute bronchitis, unspecified; R65.20 Severe sepsis without septic shock; I25.10 Atherosclerotic heart disease of native coronary artery without angina pectoris; E78.5 Hyperlipidemia, unspecified; J45.909 Unspecified asthma, uncomplicated; E11.9 Type 2 diabetes mellitus without complications; I08.0 Rheumatic disorders of both mitral and aortic valves; M13.852 Other specified arthritis, left hip; M13.851 Other specified arthritis, right hip; M13.842 Other specified arthritis, left hand; M13.841 Other specified arthritis, right hand; H91.90 Unspecified hearing loss, unspecified ear; I45.10 Unspecified right bundle-branch block; R91.1 Solitary pulmonary nodule; I10 Essential (primary) hypertension; N32.81 Overactive bladder; D72.829 Elevated white blood cell count, unspecified; K20.8 Other esophagitis; K29.70 Gastritis, unspecified, without bleeding; K25.9 Gastric ulcer, unspecified as acute or chronic, without hemorrhage or perforation; K57.90 Diverticulosis of intestine, part unspecified, without perforation or abscess without bleeding; I65.23 Occlusion and stenosis of bilateral carotid arteries; K76.0 Fatty (change of) liver, not elsewhere classified; R47.1 Dysarthria and anarthria; D62 Acute posthemorrhagic anemia; K92.1 Melena; R47.01 Aphasia; G81.94 Hemiplegia, unspecified affecting left nondominant side; R45.1 Restlessness and agitation; R41.82 Altered mental status, unspecified; R29.810 Facial weakness; D50.9 Iron deficiency anemia, unspecified; Z87.891 Personal history of nicotine dependence; Z82.49 Family history of ischemic heart disease and other diseases of the circulatory system; Z88.1 Allergy status to other antibiotic agents; Z88.8 Allergy status to other drugs, medicaments and biological substances; Z91.013 Allergy to seafood; I25.2 Old myocardial infarction; Z87.01 Personal history of pneumonia (recurrent); Z85.46 Personal history of malignant neoplasm of prostate; Z97.4 Presence of external hearing-aid; Z95.5 Presence of coronary angioplasty implant and graft; Z79.82 Long term (current) use of aspirin; Z79.4 Long term (current) use of insulin
CPT/HCPCS: 36415; 36600; 70450; 70496; 70498; 70551; 71010; 71275; 74177; 76705; 80048; 80053; 80061; 81003; 82272; 82803; 82947; 83036; 83605; 83735; 83880; 84132; 84300; 84484; 85014; 85018; 85025; 85027; 85610; 86140; 86850; 86900; 86901; 86922; 87040; 87077; 87502; 87641; 93005; 93306; 94640; 94760; A9270-GY; G8996-GN-CL; G8997-GN-CJ; G9162-GN-CL; G9163-GN-CI; J0456; J0696; J1630; J2060; J2250; J2270; J2543; J2920; J2930; J3010; J3480; J3490; J7512; P9040; Q9967

== ENCOUNTER 2016-10-18 08:55 | Inpatient (IN) | payer MEDICARE ==
[2016-10-18] MEDS ORDERED: Magnesium Hydroxide LIQ* 30 ML UDC PO PRN (14:03)
[2016-10-18] MEDS ORDERED: Acetaminophen TAB* 325 MG PO PRN (14:03)
[2016-10-18] MEDS ORDERED: Al Hydrox/Mg Hydrox/Simet LIQ* 30 ML UDC PO PRN (14:03)
[2016-10-18] MEDS ORDERED: Senna TAB PO PRN (14:03)
[2016-10-18] MEDS ORDERED: Bisacodyl SUPP* 10 MG SUPP PR PRN (14:03)
[2016-10-18] MEDS ORDERED: Dextrose 50% Syringe 50 ML* 25 GM/50 ML SYRINGE IV PUSH PRN (14:13)
[2016-10-18] MEDS ORDERED: Nitroglycerin TAB 0.4 MG* 0.4 MG TAB SL PRN (14:25)
--- NOTE | 2016-10-18 14:45 | PMRUTEAM ---
PMRU: Goals Current Status: Nursing: Current Status Skin Deviations [] Abrasion Skin Deviation Description [] fresh large bandaid on right leg without drainage , stated bruises and skin impairment due to banging legs against siderails. left leg without bandage bruised and small scabbed area Physical Therapy: Current Status Bed Mobility Assistance Min Assist Transfer Moblility Assistance Min Assist Ambulation Assistance Contact Guard Assist Ambulation Assistive Devices Rolling Walker Stairs Assistance Independent Number of Stairs 1 Occupational Therapy: Current Status Upper Body Dressing Min Assist Lower Body Dressing Mod Assist,Max Asst Bathing Mod Assist Toileting Max Asst,Total Assist Toilet Transfer Min Assist Instrumental ADL TOTAL ASSIST SPEECH THERAPY - HONEY THICK LIQUIDS, PUREED SOLIDS. EXPRESSIVE APHASIA Goals: Occupational Therapy: Initial Goals Goals to be Completed in (Days 14-17 ) Upper Body Bathing Routine Independent Lower Body Bathing Routine Modified Independent with Upper Body Dressing Routine Independent Lower Body Dressing Routine Modified Independent with Toilet Hygeine and Clothing Modified Independent with Management Routine Toilet Transfer Routine Modified Independent with Step-In Shower Transfer Modified Independent with Routine Functional Transfers for ADL Modified Independent with Grooming Routine Independent Feeding Routine Independent Light Housekeeping Tasks Minimal Contact Assist PHYSICAL THERAPY GOALS: MODIFIED INDEPENDENT BED MOBILITY, TRANSFERS, AMBULATION AND STAIRS WITH ROLLING WALKER. SPEECH THERAPY GOALS: LEAST RESTRICTIVE DIET. 90% ACCURACY WITH COGNITIVE AND LINGUISTIC TASKS. Care Plan: Care Plan ADL's - Improve/Maintain Start: 10/18/16 13:54 Freq: DAILY Status: Active Target: Activity Type Activity Date Activity User E-Sign Co-Sign Detail Recorded Client Recorded Date Recorded By Document 10/18/16 13:54 [id number] 10/18/16 13:54 [id number] 10/18/16 13:54 [facility] Outcome: ADL's/ADL Transfers Orders/Interventions Occupational Therapy Evaluation & Treatment Device Yes Patient to receive OT 5x/wk for 60-120 Therex min/day Self Care Management Group Therapy Neuromuscular ReEducation UE/LE ADL's with Assist Yes: Mod I ADL Transfers with Assist Yes: Mod I Toileting: Transfers,Clothing Management Yes: Mod I ,Hygeine w/Assist Light Kitchen/Laundry w/Assist Yes: Mod I Progression Toward Outcome/Goals Progressing SELF ADMININSTER MEDICATIONS. Medicine Note: Length of Stay: [3 WEEKS] Anticipated Discharge Destination: HOME Tentative Discharge Date: [11/08/16] Discharged to: [HOME]
--- NOTE | 2016-10-18 17:01 | HP ---
CC: Dr. Blevins; Dr. Sorensen; Dr. Ramirez REHABILITATION ADMISSION: DATE OF ADMISSION: 10/18/16 PRIMARY CARE PROVIDER: Dr. Blevins. NEUROLOGY: Dr. Sorensen. GI: Dr. Ramirez. REASON FOR ADMISSION: Stroke with left-sided hemiparesis, aphasia, and upper GI bleed. HISTORY OF PRESENT ILLNESS: This is an 85-year-old man with COPD, who was originally seen in the ER on 10/09/16 for increased shortness of breath. He was given steroids and albuterol and sent back home. He returned with worsening shortness of breath, fatigue, and cough on 10/11/16 and during that evaluation was found to have tachycardia, leukocytosis, and increased respiratory rate. He was admitted with sepsis, but in the evaluation process as he was being admitted, had a large melanotic stool. Reevaluation showed a dropping hemoglobin and hematocrit. Aspirin and Plavix were put on hold for presumed GI bleed. CT of the abdomen and pelvis did show diverticulosis. CT of the chest showed no pulmonary embolism and just stigmata of COPD. There was note of a 4-mm nodule in the right upper lobe that had not changed over the last year, but new since 2010. He was put on empiric antibiotics of azithromycin and ceftriaxone as well as steroids. His creatinine level was elevated at 1.48 and he was given IV fluids. He developed some hypotension and medications were held. He received 1 unit packed red blood cells. As his medical status stabilized, he was taken for EGD on 10/14/16, which showed nonbleeding ulcers. He was continued on a proton pump inhibitor. He was agitated and CT of the head was negative on 10/13/16. Because of some concerns of abdominal pain, he had a gallbladder ultrasound on October 13, which just showed fatty liver. As he began to show more alertness, it was noted that he had difficulty speaking with some left-sided weakness and tremor. MRI of the brain on 10/16/16 showed subacute right parietal ischemic infarct and small bilateral effusions of the mastoid sinuses. Neurology was consulted. Since he could not have oral aspirin or Plavix due to the GI bleed, he was treated with rectal aspirin initially. This was ultimately changed to oral as his H and H stabilized. He received a CT angiogram of the brain on 10/16/16, which just showed minimal atherosclerosis of the internal carotid arteries. Transthoracic echo, on 10/17/16, showed ejection fraction of 65%. Bubble study was negative. It has been recommended that Plavix not be restarted for 1 to 2 weeks. He has only received 1 unit of packed red blood cells and his hemoglobin and hematocrit have remained stable. Prior to admission, he was independent without any assistive device for mobility and ADLs. With physical therapy, he required minimum amount of assistance for transferring and could ambulate with contact guard assistance and a rolling walker up to 100 feet. With occupational therapy, he required maximum amount of assistance for toileting and minimal amount of assistance for lower body dressing. With speech therapy, he has been shown to have dysphagia and is eating honey thickened liquids with a spoon and pureed solids. Cognitive evaluation showed he has expressive aphasia. He can consistently follow one step commands and answer yes/no accurately. PAST MEDICAL HISTORY: Stroke - see history of present illness; upper GI bleed - see history of present illness; COPD; coronary artery disease, status post stenting x5; diabetes mellitus type 2 with peripheral neuropathy; hypertension; hyperlipidemia; prostate cancer s/p surgery and radiation, status post TURP procedure; status post circumcision; status post tonsillectomy and adenoidectomy ; status post appendectomy; history of tympanostomy tubes; overactive bladder; hard of hearing, with bilateral hearing aids. MEDICATIONS: 1. Acetaminophen 650 q.6 hours p.r.n. pain or fever. 2. Atorvastatin 80 mg q. day. 3. Lantus 80 units q.24 hours. 4. Lispro sliding scale insulin q.a.c. and q.h.s. 5. Prevacid SoluTab 30 mg q. day. 6. Dulera 200/5 two puffs b.i.d. 7. Potassium chloride liquid 20 mEq b.i.d. 8. Prednisone taper currently 30 mg q. day for one more day, then 20 mg for 3 days, 10 mg for 3 days, 5 mg for 3 days, then off. 9. Calcium carbonate 1000 mg q. day. 10. Metoprolol 25 mg b.i.d. 11. Singulair 10 mg q.p.m. 12. Albuterol MDI 2 puffs q.6 hours p.r.n. 13. VESIcare 5 mg q. day. 14. Aspirin 81 mg p.o. q. day. 15. Nitroglycerin 0.4 mg sublingual q.5 minutes p.r.n. angina or chest pain. 16. Vitamin D 2000 units q. day. 17. Albuterol nebulizer 2.5 mg q.4 hours p.r.n. ALLERGIES: CAPTOPRIL, LIMBREL, LYRICA, and TUNA. FAMILY HISTORY: Noncontributory. SOCIAL HISTORY: He lives with his . He smoked in the past. No alcohol or drug use. Their home is two levels, but they live on one floor. There is one step to enter. If he cannot make decisions for himself, his , Jelena, is his healthcare proxy. 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 REVIEW OF SYSTEMS: See history of present illness and past medical history. Remainder of 10-system review was completed. He acknowledges ongoing bladder leakage for which he normally wears a pad. He has skin issues due to bruising secondary to when he was agitated in the intensive care unit. PHYSICAL EXAMINATION GENERAL: Well-developed, well-nourished, appearing stated age. MENTAL STATUS: No acute distress. Alert and oriented to his self and his situation, but not oriented to date or unable to express it due to his expressive aphasia. VITAL SIGNS: Temperature 98, pulse 73, respirations 16, oxygenation 100% on room air, blood pressure 154/71. HEENT: Normocephalic, atraumatic. Oropharynx with some evidence of thrush. Moist mucous membranes. LUNGS: Clear to auscultation bilaterally. HEART: Regular rate and rhythm. ABDOMEN: Active bowel sounds, soft, nontender, nondistended. EXTREMITIES: No clubbing or cyanosis. He does have edema in both arms and both legs. NEUROLOGICAL: Cranial nerves II through XII are intact. Upper and lower extremity motor testing shows 4+/5 bilaterally and symmetrically with normal sensation. MUSCULOSKELETAL: He has functional range of motion of all of his major joints. LABORATORY DATA: Today, hemoglobin 8.7, hematocrit 27. Sodium 143, potassium 3.5, BUN 28, creatinine 1.14, calcium 8.1. IMPRESSION: An 85-year-old man with expressive aphasia after stroke and generalized weakness after prolonged hospitalization for upper GI bleed. He will be admitted to the [facility] [[email or web address]], so he can return to living with his . PLAN: 1. Stroke: Continue with baby aspirin. Once again, wait 1 to 2 weeks before reinitiating Plavix. 2. Upper GI bleed: Continue with proton pump inhibitor. Follow up with GI as needed. 3. Acute blood loss anemia secondary to upper GI bleed: We will monitor his CBC. 4. Diabetes mellitus, type 2: Continue with Lantus and sliding scale insulin. It is not clear to me if he was on insulin prior to his hospitalization and we will have to determine if he can go back to any oral medication prior to discharge. 5. Hypertension: Continue with his current medication. 6. Coronary artery disease: Continue with his current medications and restart Plavix when able. 7. COPD: Continue with steroid taper, inhalers on an as needed basis. He has scheduled medications as well. 8. Hyperlipidemia: Continue with atorvastatin. 9. Thrush: I will order nystatin swish and swallow and will have to determine how he will be able to do that with in a honey thickened liquid state. 10. DVT prophylaxis: Chemically is contraindicated due to his GI bleed. He will have SCDs when he is in bed. 11. Impaired mobility: He will be seen by Physical Therapy for bed mobility, transfer training, ambulation, and stairs. 12. Impaired self-care: He will be seen by Occupational therapy for ADL and IADL training and equipment evaluation. 13. Dysphagia: Follow up with Speech so that he can get the least restrictive diet. 14. Expressive aphasia: Continue speech therapy for effective communication strategies. 15. Advance directives: He is a full code. His is his healthcare proxy. 16. Estimated length of stay: Approximately 3 weeks. [id number]/[facility] #: [id number] [facility]
[2016-10-18] MEDS: Insulin LISPRO* 1 UNITS UNIT SUBCUT SCH ×2 (17:50→20:50)
[2016-10-18] MEDS: Metoprolol Tartrate TAB* 25 MG PO SCH (17:52)
[2016-10-18] MEDS: Atorvastatin* 80 MG TAB PO SCH (17:52)
[2016-10-18] MEDS: Nystatin SUSPENSION* 100000 UNITS/ML 5 ML UDC PO SCH ×2 (18:11→20:50)
[2016-10-18] MEDS: Potassium Chloride LIQUID* 20 MEQ PACKET PO SCH (18:11)
[2016-10-18] MEDS: Mometasone/Formoter 200/5 MDI INH SCH (20:27)
[2016-10-18] MEDS: Insulin GLARGINE(*) 1 UNITS UNIT SUBCUT SCH (20:44)
[2016-10-18] MEDS: Docusate CAP* 100 MG PO SCH (20:49)
[2016-10-18] MEDS: Montelukast Sodium TAB* 10 MG PO SCH (20:50)
[2016-10-19] MEDS: Insulin LISPRO* 1 UNITS UNIT SUBCUT SCH ×4 (08:23→21:43)
[2016-10-19] MEDS ORDERED: predniSONE TAB* 10 MG PO SCH (08:30)
[2016-10-19] MEDS: Potassium Chloride LIQUID* 20 MEQ PACKET PO SCH (08:45)
[2016-10-19] MEDS: Lansoprazole SOLUTAB* 30 MG PO SCH (08:46)
[2016-10-19] MEDS: Docusate CAP* 100 MG PO SCH ×2 (08:46→21:39)
[2016-10-19] MEDS: Aspirin EC Low Dose* 81 MG TAB.EC PO SCH (08:46)
[2016-10-19] MEDS: Metoprolol Tartrate TAB* 25 MG PO SCH ×2 (08:46→17:13)
[2016-10-19] MEDS: Mometasone/Formoter 200/5 MDI INH SCH ×2 (08:46→21:44)
[2016-10-19] MEDS: Insulin GLARGINE(*) 1 UNITS UNIT SUBCUT SCH (08:47)
[2016-10-19] MEDS: Nystatin SUSPENSION* 100000 UNITS/ML 5 ML UDC PO SCH ×4 (08:49→21:43)
[2016-10-19] MEDS ORDERED: Solifenacin(NF) 5 MG TAB PO SCH (09:00)
[2016-10-19 10:20] LABS: ALT 35 U/L (7-52); Albumin 2.8 g/dL (3.2-5.2); Alkaline Phosphatase 46 U/L (34-104); BUN/Creatinine Ratio 24.1 (8-20); Blood Urea Nitrogen 27 mg/dL (6-24); CO2 Carbon Dioxide 19 mmol/L (22-32); Calcium 8.7 mg/dL (8.6-10.3); Chloride 118 mmol/L (101-111); EGFR African American 80.5 (>60); EGFR Non-African American 62.6 (>60); Globulin 1.5 g/dL (2-4); Glucose 79 mg/dL (70-100); Sodium 146 mmol/L (133-145); Total Protein 4.3 g/dL (6.4-8.9)
[2016-10-19] MEDS: PTO: Solifenacin(NF) 10 MG TAB PO SCH (12:00)
[2016-10-19 12:29] LABS: Hematocrit 29 % (42-52); Hemoglobin 9.4 g/dl (14.0-18.0); Mean Corpuscular HGB Conc 32 g/dl (31-36); Mean Corpuscular Hemoglobin 29 pg (27-31); Mean Corpuscular Volume 92 fL (80-94); Mean Platelet Volume 9 um3 (7.4-10.4); Red Blood Count 3.19 10^6/ul (4.0-5.4); Red Cell Distribution Width 15 % (10.5-15); White Blood Count 15.6 10^3/ul (3.5-10.8)
--- NOTE | 2016-10-19 14:49 | RAD ---
INDICATION: Leukocytosis COMPARISON: None TECHNIQUE: PA and lateral dual-energy views were obtained. FINDINGS: Bones/Soft Tissues: There are no acute bony findings. Cardiomediastinal: The cardiomediastinal silhouette is normal. Lungs: There are no infiltrates. Pleura: There are no pleural effusions. Other: None IMPRESSION: NO ACTIVE DISEASE.
[2016-10-19] MEDS: Atorvastatin* 80 MG TAB PO SCH (17:13)
[2016-10-19 18:22] LABS: Urine Bacteria Absent (Absent); Urine Bilirubin Negative (Negative); Urine Glucose 3+(>=500 mg/dL) (Negative); Urine Nitrite Negative (Negative)
--- NOTE | 2016-10-19 21:01 | PN ---
Hospitalist Progress Note HOSPITALIST ADDENDUM Dr. Young requested evaluation due to isolated leukocytosis. Patient has no signs or symptoms of infection at this time, CxR shows no infiltrate, UA is negative. Suspect leukocytosis is likely associated with steroids. Will continue to follow with you.
[2016-10-19] MEDS ORDERED: Docusate CAP* 100 MG PO PRN (21:40)
[2016-10-19] MEDS: Montelukast Sodium TAB* 10 MG PO SCH (21:45)
[2016-10-20 05:32] LABS: Hematocrit 24 % (42-52); Hemoglobin 8.1 g/dl (14.0-18.0); Mean Corpuscular HGB Conc 33 g/dl (31-36); Mean Corpuscular Hemoglobin 30 pg (27-31); Mean Corpuscular Volume 89 fL (80-94); Mean Platelet Volume 9 um3 (7.4-10.4); Red Blood Count 2.71 10^6/ul (4.0-5.4); Red Cell Distribution Width 15 % (10.5-15); White Blood Count 10.1 10^3/ul (3.5-10.8)
[2016-10-20 05:34] LABS: Add Diff/Slide Review? Slide Review Added; Comments Flag Yes
[2016-10-20] MEDS: Insulin LISPRO* 1 UNITS UNIT SUBCUT SCH ×4 (07:59→21:01)
[2016-10-20] MEDS: Metoprolol Tartrate TAB* 25 MG PO SCH ×2 (08:03→17:05)
[2016-10-20] MEDS: Lansoprazole SOLUTAB* 30 MG PO SCH (08:03)
[2016-10-20] MEDS: Aspirin EC Low Dose* 81 MG TAB.EC PO SCH (09:10)
[2016-10-20] MEDS: Mometasone/Formoter 200/5 MDI INH SCH ×2 (09:11→19:30)
[2016-10-20] MEDS: Nystatin SUSPENSION* 100000 UNITS/ML 5 ML UDC PO SCH ×4 (09:12→21:02)
[2016-10-20] MEDS: predniSONE TAB* 20 MG PO SCH (09:13)
[2016-10-20] MEDS: PTO: Solifenacin(NF) 10 MG TAB PO SCH (09:14)
[2016-10-20] MEDS: Potassium Chloride LIQUID* 20 MEQ PACKET PO SCH (09:15)
[2016-10-20] MEDS ORDERED: Insulin GLARGINE(*) 1 UNITS UNIT SUBCUT SCH (09:24)
[2016-10-20] MEDS: Insulin GLARGINE(*) 1 UNITS UNIT SUBCUT SCH (10:14)
[2016-10-20 16:18] LABS: Hematocrit 25 % (42-52); Hemoglobin 8.3 g/dl (14.0-18.0); Mean Corpuscular HGB Conc 33 g/dl (31-36); Mean Corpuscular Hemoglobin 30 pg (27-31); Mean Corpuscular Volume 90 fL (80-94); Mean Platelet Volume 9 um3 (7.4-10.4); Red Blood Count 2.82 10^6/ul (4.0-5.4); Red Cell Distribution Width 15 % (10.5-15); White Blood Count 11.9 10^3/ul (3.5-10.8)
[2016-10-20] MEDS: Atorvastatin* 80 MG TAB PO SCH (17:05)
--- NOTE | 2016-10-20 17:42 | PN ---
Subjective Date of Service: 10/20/16 Interval History: HOSPITALIST PROGRESS NOTE Patient seen and examined at bedside. He feels well today. In good spirits, joking with his , asking "when can I have a steak and a bloody nathaly?" Denies dyspnea, CP, palpitations, appetite is good, tolerating diet well. Family History: Unchanged from Admission Social History: Unchanged from Admission Past Medical History: Unchanged from Admission Objective Active Medications: Acetaminophen (Tylenol Tab*) 650 mg PO Q6H PRN PRN Reason: FEVER > 101 Al Hydrox/Mg Hydrox/Simethicone (Maalox Plus*) 30 ml PO Q6H PRN PRN Reason: INDIGESTION Albuterol (Ventolin 2.5 Mg/3 Ml Neb.Shayla*) 2.5 mg INH Q4H PRN PRN Reason: SOB/WHEEZING Aspirin (Aspirin Ec Low Dose*) 81 mg PO DAILY [facility] Last Admin: 10/20/16 09:10 Dose: 81 mg Atorvastatin Calcium (Lipitor*) 80 mg PO 1700 [facility] Last Admin: 10/20/16 17:05 Dose: 80 mg Bisacodyl (Dulcolax Supp*) 10 mg [place] DAILY PRN PRN Reason: CONSTIPATION Dextrose (D50w Syringe 50 Ml*) 12.5 gm IV PUSH .FOR FS < 60 - SS PRN PRN Reason: FS < 60 Docusate Sodium (Colace Cap*) 100 mg PO BID PRN PRN Reason: CONSTIPATION Insulin Glargine (Lantus(*)) 12 units SUBCUT DAILY [facility] Insulin Human Lispro (Humalog*) 0 - 15 units SUBCUT ACHS [facility] PRN Reason: Protocol Last Admin: 10/20/16 17:05 Dose: 9 units Lansoprazole (Prevacid Solutab*) 30 mg PO 0730 [facility] Last Admin: 10/20/16 08:03 Dose: 30 mg Magnesium Hydroxide (Milk Of Magnesia Liq*) 30 ml PO Q6H PRN PRN Reason: CONSTIPATION Metoprolol Tartrate (Lopressor Tab*) 25 mg PO BID WITH MEALS [facility] Last Admin: 10/20/16 17:05 Dose: 25 mg Mometasone Furoate/Formoterol Fumar (Dulera 200/5 Mdi*) 2 puff INH BID [facility] Last Admin: 01/15/17 09:11 Dose: 2 puff Montelukast Sodium (Singulair Tab*) 10 mg PO BEDTIME [facility] Last Admin: 10/19/16 21:45 Dose: 10 mg Nitroglycerin (Nitroglycerin Tab 0.4 Mg*) 0.4 mg SL Q5M PRN PRN Reason: ANGINA Nystatin (Nystatin Suspension*) 200,000 units PO QID [facility] Stop: 10/20/16 23:59 Last Admin: 10/20/16 17:07 Dose: 200,000 units Potassium Chloride (Klor-Con Liquid*) 20 meq PO DAILY [facility] Last Admin: 10/20/16 09:15 Dose: 20 meq Prednisone (Deltasone Tab*) 20 mg PO DAILY [facility] Stop: 10/22/16 12:00 Last Admin: 10/20/16 09:13 Dose: 20 mg Prednisone (Deltasone Tab*) 10 mg PO DAILY [facility] Stop: 10/25/16 12:00 Prednisone (Deltasone Tab*) 5 mg PO DAILY [facility] Stop: 10/28/16 12:00 Senna (Senokot Tab*) 2 tab PO BEDTIME PRN PRN Reason: CONSTIPATION Solifenacin (Vesicare(Nf)) 10 mg PO DAILY [facility] PRN Reason: Protocol Last Admin: 10/20/16 09:14 Dose: 10 mg Vital Signs 10/19/16 10/19/16 10/20/16 19:10 20:00 03:39 Temperature Pulse Rate Respiratory 18 Rate Blood Pressure (mmHg) O2 Sat by Pulse 99 99 99 Oximetry 10/20/16 10/20/16 10/20/16 05:43 08:00 16:11 Temperature 98.1 F 98.5 F Pulse Rate 59 57 Respiratory 16 16 16 Rate Blood Pressure 153/61 142/64 (mmHg) O2 Sat by Pulse 99 97 100 Oximetry Oxygen Devices in Use Now: None Appearance: Pleasant elderly male sitting up in a recliner in [facility]. Eyes: No Scleral Icterus Ears/Nose/Mouth/Throat: Mucous Membranes Moist Neck: Trachea Midline Respiratory: Symmetrical Chest Expansion and Respiratory Effort, Clear to Auscultation Cardiovascular: RRR - Normal S1 and S2 Abdominal: NL Sounds; No Tenderness; No Distention Extremities: - - Bilateral LE edema Neurological: Alert and Oriented x 3 Nutrition: Taking PO's Result Diagrams: 10/20/16 16:05 10/19/16 12:15 Microbiology and Other Data: Microbiology 10/20/16 10:30 Stool Occult Blood (SIOBHAN) - Final Stool 10/19/16 22:51 Stool Gross Appearance - Final Stool C. difficile DNA Amplification - Final 027 Presumptive NEGATIVE Toxigenic C.diff NEGATIVE Stool Occult Blood (SIOBHAN) - Final Assess/Plan/Problems-Billing Assessment: Mr Simmons is an 85 yo M who has a h/o CAD, Type II DM, HTN, COPD admitted with sepsis, bronchitis, complicated by GI bleed and CVA, discharged to [facility] on 10/18. - Patient Problems (1) Leukocytosis Comment: - No signs of infection at this time. - Suspect leukocytosis is associated with steroids. - Will continue to monitor. (2) H/O: GI bleed Comment: - There was concern for black stool last night and Hb had dropped a little. - He has no signs of GI bleed at this time. - Hb stable around 8.3 and stool occult blood was negative. - Continue PPI. (3) Type 2 diabetes mellitus Comment: - Continue to titrate Lantus and continue Lispro SS. - May consider resuming Glipizide 2.5mg/day as he was doing at home. Status and Disposition: Hospitalist service will continue to follow with you.
[2016-10-20] MEDS: Montelukast Sodium TAB* 10 MG PO SCH (21:01)
[2016-10-21 06:49] LABS: Hematocrit 26 % (42-52); Hemoglobin 8.8 g/dl (14.0-18.0)
[2016-10-21] MEDS: Insulin GLARGINE(*) 1 UNITS UNIT SUBCUT SCH (08:04)
[2016-10-21] MEDS: Insulin LISPRO* 1 UNITS UNIT SUBCUT SCH ×4 (08:06→21:14)
[2016-10-21] MEDS: PTO: Solifenacin(NF) 10 MG TAB PO SCH (08:06)
[2016-10-21] MEDS: Aspirin EC Low Dose* 81 MG TAB.EC PO SCH (08:07)
[2016-10-21] MEDS: Lansoprazole SOLUTAB* 30 MG PO SCH (08:07)
[2016-10-21] MEDS: predniSONE TAB* 20 MG PO SCH (08:07)
[2016-10-21] MEDS: Metoprolol Tartrate TAB* 25 MG PO SCH ×2 (08:07→17:09)
[2016-10-21] MEDS: Potassium Chloride LIQUID* 20 MEQ PACKET PO SCH (08:08)
[2016-10-21] MEDS: Mometasone/Formoter 200/5 MDI INH SCH ×2 (08:40→21:04)
[2016-10-21] MEDS ORDERED: glipiZIDE TAB* 5 MG PO SCH (11:00)
[2016-10-21] MEDS: glipiZIDE TAB.XL* 2.5 MG PO SCH (11:57)
[2016-10-21] MEDS: Atorvastatin* 80 MG TAB PO SCH (17:09)
[2016-10-21] MEDS: Montelukast Sodium TAB* 10 MG PO SCH (20:21)
[2016-10-22] MEDS: Insulin LISPRO* 1 UNITS UNIT SUBCUT SCH ×4 (07:59→21:11)
[2016-10-22] MEDS: Insulin GLARGINE(*) 1 UNITS UNIT SUBCUT SCH (08:00)
[2016-10-22] MEDS: Lansoprazole SOLUTAB* 30 MG PO SCH (08:01)
[2016-10-22] MEDS: Potassium Chloride LIQUID* 20 MEQ PACKET PO SCH (08:01)
[2016-10-22] MEDS: predniSONE TAB* 20 MG PO SCH (08:01)
[2016-10-22] MEDS: Metoprolol Tartrate TAB* 25 MG PO SCH ×2 (08:01→18:10)
[2016-10-22] MEDS: PTO: Solifenacin(NF) 10 MG TAB PO SCH (08:01)
[2016-10-22] MEDS: glipiZIDE TAB.XL* 2.5 MG PO SCH (08:01)
[2016-10-22] MEDS: Aspirin EC Low Dose* 81 MG TAB.EC PO SCH (08:01)
[2016-10-22] MEDS: Mometasone/Formoter 200/5 MDI INH SCH ×2 (08:02→20:38)
--- NOTE | 2016-10-22 12:53 | PMRUTEAM ---
PMRU: Goals Current Status: Nursing: Current Status Skin Deviations [Bilateral Arm Bruise ] Skin Deviations [Bilateral Leg Abrasion,Bruise ] Skin Deviation Description [ Patches of redness on arms- describes pt. on Bilateral Arm] previous anticoagulant Skin Deviation Description [ R lower rock dressing in place, to be changed QOD Bilateral Leg] Bladder Current Status he is both incontenent and continent. we are toileting every 2hours Bowel Current Status both contenent and incontinent Physical Therapy: Current Status Bed Mobility Assistance Supervision Transfer Moblility Assistance Supervision,Contact Guard Assist Transfer/Bed Mobility Rolling Walker Recommended Devices Ambulation Assistance Supervision,Contact Guard Assist Ambulation Assistive Devices Rolling Walker Number of Feet Patient 300' Ambulated Stairs Assistance Supervision,Contact Guard Assist Stairs Recommended Devices Two Rails Number of Stairs 5 Curb Not Tested Occupational Therapy: Current Status Upper Body Dressing Supervision Lower Body Dressing Contact Guard Bathing Contact Guard Toileting Min Assist Toilet Transfer Min Assist Shower Transfer Min Assist Eating Supervision Instrumental ADL TOTAL ASSIST Rec Therapy: Current Status Summary of Assessment and RT assessment complete and pt. is aware of RT Clinical Impression services. Pt. identifies with an active leisure life. Treatment Goals Pt. will engage in leisure activities while on the unit. Treatment Plan Provide RT services and encourage involvement. Social Work: Current Status Discharge Plan return home with home care svs and family support Potential for Family Training pt's is involved and attentive Anticipated Discharge Home Destination Discharge With home care svs and family support Nutrition: Current Status Monitoring recommendation by OPERATIONS SCHEDULER for pureed texture, honey thick liquids. Pt with reported wt loss prior to acute admission, but currently eating nearly 100% of meals and meeting needs. 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 Daily BMs. Appears to be meeting goals as outlined below. Speech: Current Status Assessment The patient presented with improvements with word finding in conversation and structured therapy tasks. The patient demonstrated safe po of honey thick liquid and puree with no overt s/s of aspiration/penetration with cues for use of chin tuck. The patient demonstrated safe po of nectar thick liquid by tsp with cues for use of chin tuck with no overt s/s of aspiration/penetration on 4/5 trials. The patient presented with cough x1 . The patient demonstrated safe po of trials of single ice chips with cues for chin tuck with no overt s/s of aspiration/penetration on 5 trials. Goals: Physical Therapy: Initial Goals Bed Mobility Assistance Independent Transfer Mobility Assistance Independent Transfer/Bed Mobility None Recommended Devices Ambulation Independent Ambulation Recommended Devices Rolling Walker Ambulation Distance 150 Stairs Assistance Independent Stair Recommended Devices One Rail Number of Stairs 5 Physical Therapy: Updated Goals Bed Mobility Assistance Independent Transfer Mobility Assistance Independent Transfer/Bed Mobility Rolling Walker Recommended Devices Ambulation Assistance Independent Ambulation Assistive Devices Rolling Walker Ambulation Distance (ft) 150' Stairs Assistance Independent Stairs Recommended Devices One Rail Number of Stairs 5 Home Exercise Program Independent Assistance Occupational Therapy: Initial Goals Goals to be Completed in (Days 14-17 ) Upper Body Bathing Routine Independent Lower Body Bathing Routine Modified Independent with Upper Body Dressing Routine Independent Lower Body Dressing Routine Modified Independent with Toilet Hygeine and Clothing Modified Independent with Management Routine Toilet Transfer Routine Modified Independent with Step-In Shower Transfer Modified Independent with Routine Functional Transfers for ADL Modified Independent with Grooming Routine Independent Feeding Routine Independent Light Housekeeping Tasks Minimal Contact Assist Nursing: Goals Bladder Goal independent with pericare and changing briefs Bowel Goal to be able to control bowels and do own selfcare Nutrition: Goals Intervention Goals 1. Tolerates least restrictive texture/thickness w/o signs of aspiration/penetration. 2. Achieve/maintain adequate glycemic control per inpatient parameters w/o hypoglycemia. 3. Maintain bowel regularity w/o constipation or diarrhea. 4. Maintain adequate oral intake to support weight maintenance, preservation of lean body mass . Speech: Goals Speech Goal 1 See below Goal 1 Comments LTO: The patient will demonstrate safe po of thin liquid and regular solids or least restrictive diet without overt s/s of aspiration/penetration per OPERATIONS SCHEDULER observation / nsg report. STGs: 1. The patient will perform oropharyngeal swallow exericses with initial cue only for HEP. 2. The patient will demonstrate safe po of nectar- thick liquid trials with OPERATIONS SCHEDULER only with no overt s/ s of aspiration/penetration over 9/10 trials. * The patient demonstrated safe po of honey thick liquid and puree with no overt s/s of aspiration/ penetration with cues for use of chin tuck consuming 100% of am tray and 6oz of honey thick liquid. The patient demonstrated safe po of nectar thick liquid by tsp with cues for use of chin tuck with no overt s/s of aspiration/penetration on 4/5 trials. The patient presented with cough x1 . The patient demonstrated safe po of trials of single ice chips with cues for chin tuck with no overt s/s of aspiration/penetration on 5 trials. 3. The patient will demonstrate safe po of trials of mechanical soft solids with OPERATIONS SCHEDULER only with no overt s/s of aspiration/penetration over 9/10 trials. *The patient demonstrated safe po of mechanical soft solids trial with no overt s/s of aspiration/ penetration on 9/10 trials. The patient presented with mild oral residuals requiring cue for liquid wash. The patient presented with increased rate of oral intake, requiring cues for single bites/sips Speech Goal 2 See below Speech Goal 2 Comments LTO: The patient will comprehend daily tasks including multistep tasks/ directions with use of compensatory strategies as needed. STGs: 1. The patient will complete complex/abstract yes/ no questions at 90% accuracy. 2. The patient will follow complex step commands at 90% accuracy. Speech Goal 3 See below Speech Goal 3 Comments LTO: The patient will express daily wants and needs with use of compensatory strategies as needed. STGs: 1. The patient will complete various functional word finding tasks at 90% accuracy. * The patient was educated on word finding strategies and provided with educational handout. The patient described visual stimuli with a single sentence at 100% accuracy. The patient required min-mod cues to describe the details in the visual stimuli. 2. The patient will demonstrate use of two word finding strategies during structured tasks over 2 session. Social Work: Goals Discharge Plan return home with home care svs and family support Potential for Family Training pt's is involved and attentive Anticipated Discharge Home Destination Discharge With home care svs and family support Care Plan: Care Plan ADL's - Improve/Maintain Start: 10/18/16 13:54 Freq: DAILY Status: Active Target: Activity Type Activity Date Activity User E-Sign Co-Sign Detail Recorded Client Recorded Date Recorded By Document 10/19/16 11:23 [id number] 10/19/16 11:23 [id number] 10/19/16 11:23 PMRU Outcome: ADL's/ADL Transfers Orders/Interventions Occupational Therapy Evaluation & Treatment Device Yes Patient to receive OT 5x/wk for 60-120 Therex min/day Self Care Management Group Therapy Neuromuscular ReEducation UE/LE ADL's with Assist Yes: Mod I ADL Transfers with Assist Yes: Mod I Toileting: Transfers,Clothing Management Yes: Mod I ,Hygeine w/Assist Light Kitchen/Laundry w/Assist Yes: Mod I Progression Toward Outcome/Goals Progressing Communication-Improve/Maintain Start: 10/18/16 16:31 Freq: DAILY Status: Active Target: Activity Type Activity Date Activity User E-Sign Co-Sign Detail Recorded Client Recorded Date Recorded By Document 10/21/16 17:27 [id number] 10/21/16 17:27 [id number] 10/21/16 17:27 PMRU Outcome: Communication/Cognitive Status Outcome/Goals Makes Needs Known Effectively Other Outcomes/Goals The patient will comprehend /express daily wants and needs independently with use of compensatory strategies Progression Toward Outcomes/Goals Progressing Outcome/Goals Met Comment The patient was educated on word finding strategies and provided educational handout. The patient described visual stimuli with single sentence at 100 % accuracy. The patient required min- mod cues for details. DVT Prophylaxis- Improve/Maintain Start: 10/19/16 00:41 Freq: DAILY Status: Active Target: Activity Type Activity Date Activity User E-Sign Co-Sign Detail Recorded Client Recorded Date Recorded By Document 10/22/16 09:12 [id number] [id number] 10/22/16 09:47 [id number] 10/22/16 09:12 PMRU Outcome: DVT Prophylaxis Outcome/Goals Complies with DVT Prophylaxis /Treatment Demonstrates Knowledge of DVT Prevention/ Treatment TEDS Stockings on Every AM, Off at HS Other Outcome/Goals CESIA wraps instead of TEDS Progression Toward Outcome/Goals Progressing Discharge Planning - Improve/Maintain Start: 10/19/16 00:41 Freq: DAILY Status: Active Target: Activity Type Activity Date Activity User E-Sign Co-Sign Detail Recorded Client Recorded Date Recorded By Document 10/21/16 11:27 [id number] 10/21/16 11:28 [id number] 10/21/16 11:27 PMRU Outcome: Discharge Planning Identify Patient Needs yes Update Patient Family No Outcome/Goals Demonstrates Understanding of Discharge Plan Progression Toward Outcome/Goals Progressing /GI-Improve/Maintain Start: 10/19/16 00:41 Freq: DAILY Status: Active Target: Activity Type Activity Date Activity User E-Sign Co-Sign Detail Recorded Client Recorded Date Recorded By Document 10/22/16 09:12 [id number] [id number] 10/22/16 09:47 [id number] 10/22/16 09:12 PMRU Outcome: Genitourinary/ Gastrointestinal Genitourinary- Outcome/Goals Maintain/ Achieve Adequate Urinary Output Gastrointestinal-Outcome/Goals Remain Free of Emesis Prevent Constipation Progression Toward Outcome/Goals - Progressing Progression Toward Outcome/Goals - GI Progressing Metabolic Status- Improve/Maintain Start: 10/19/16 00:41 Freq: DAILY Status: Active Target: Activity Type Activity Date Activity User E-Sign Co-Sign Detail Recorded Client Recorded Date Recorded By Document 10/22/16 09:12 [id number] 10/22/16 09:47 [id number] 10/22/16 09:12 PMRU Outcome: Metabolic Status Have Fingersticks Been Ordered Yes Fingerstick Order Frequency AC & HS Outcome/Goals Maintain/ Improve Metabolic Status Demonstrate Knowledge of Prevention/ Treatment of Metabolic Imbalances Progression Toward Outcome/Goals Progressing Mobility- Improve/Maintain Start: 10/18/16 17:35 Freq: DAILY Status: Active Target: Activity Type Activity Date Activity User E-Sign Co-Sign Detail Recorded Client Recorded Date Recorded By Document 10/21/16 17:27 [id number] 10/21/16 17:27 [id number] 10/21/16 17:27 PMRU Outcome: Mobility Physical Therapy Evaluation and Yes Treatment Activity OOB with Assistance Yes Assistance Yes Patient to be seen 5x/wk for 60-120 min/ Therex day for: Mobility Training Gait Training Balance Outcome/Goals Maintain/ Achieve Baseline Mobility Status Improve Mobility Status Demonstrates Proper Use of Assistive Devices Free from Complications of Immobility Progression Toward Outcome/Goals Progressing Bed Mobility Yes: independent Transfers Yes: independent Gait x ft Yes: independent with RW 150' Up/Down Stairs Yes: independent ascent/descent with 1 rail Nutrition/Swallowing- Improve/Maintain Start: 10/18/16 16:31 Freq: DAILY Status: Active Target: Activity Type Activity Date Activity User E-Sign Co-Sign Detail Recorded Client Recorded Date Recorded By Document 10/22/16 09:12 [id number] [id number] 10/22/16 09:47 [id number] 10/22/16 09:12 PMRU Outcome: Nutrition/Swallowing Outcome/Goals Demonstrates Adequate Hydration/ Prevents Dehydration Maintain/ Improve Nutritional Status Other Outcome/Goals The patient will demonstrate safe po of thin liquid and regular solids or least restrictive diet with no overt s/s of aspiration/ penetration per OPERATIONS SCHEDULER observation / nsg report. Progression Toward Outcome/Goals Progressing Safety- Improve/Maintain Start: 10/19/16 00:41 Freq: DAILY Status: Active Target: Activity Type Activity Date Activity User E-Sign Co-Sign Detail Recorded Client Recorded Date Recorded By Document 10/22/16 09:12 [id number] 10/22/16 09:47 [id number] 10/22/16 09:12 PMRU Outcome: Safety Outcome/Goals Remain Free of Injury or Harm Cooperates with Safety Measures for Least Restrictive Environment Prevent Falls/ Injury Progression Toward Outcome/Goals Progressing Skin- Improve/Maintain Start: 10/19/16 00:41 Freq: DAILY Status: Active Target: Activity Type Activity Date Activity User E-Sign Co-Sign Detail Recorded Client Recorded Date Recorded By Document 10/21/16 23:53 [id number] 10/21/16 23:54 [id number] 10/21/16 23:53 PMRU Outcome: Skin Skin Orders Dressing Change Outcome/Goals Maintain/ Improve Skin Intergrity Free from Decubitus Progression Toward Outcome/Goals Progressing Medicine Note: Length of Stay: 2 1/2 weeks Anticipated Discharge Destination: Home Tentative Discharge Date: Nov 08, 2015 Discharged to: Home
--- NOTE | 2016-10-22 18:00 | PN ---
Hospitalist Progress Note HOSPITALIST ADDENDUM No acute events, no reports of black stool. Still has productive cough. Will repeat CBC and CxR in AM.
[2016-10-22] MEDS: Atorvastatin* 80 MG TAB PO SCH (18:11)
--- NOTE | 2016-10-22 20:21 | RAD ---
INDICATION: Cough COMPARISON: Comparison chest x-ray dated October 19, 2016 TECHNIQUE: PA and lateral views of the chest were obtained. FINDINGS: The heart and mediastinum are normal in size and contour. The lungs are grossly clear. There is no evidence of large pleural effusion. Degenerative changes of the thoracic spine include loss of intervertebral disc height and anterior marginal osteophyte formation. There is no radiographic evidence of free air beneath the diaphragm IMPRESSION: No radiographic evidence of acute cardiopulmonary disease.
[2016-10-22] MEDS: Montelukast Sodium TAB* 10 MG PO SCH (21:11)
[2016-10-23 07:31] LABS: Hematocrit 28 % (42-52); Hemoglobin 8.8 g/dl (14.0-18.0); Mean Corpuscular HGB Conc 31 g/dl (31-36); Mean Corpuscular Hemoglobin 30 pg (27-31); Mean Corpuscular Volume 95 fL (80-94); Mean Platelet Volume 9 um3 (7.4-10.4); Red Blood Count 2.95 10^6/ul (4.0-5.4); Red Cell Distribution Width 16 % (10.5-15); White Blood Count 9.1 10^3/ul (3.5-10.8)
[2016-10-23] MEDS: Potassium Chloride LIQUID* 20 MEQ PACKET PO SCH (07:39)
[2016-10-23] MEDS: Aspirin EC Low Dose* 81 MG TAB.EC PO SCH (07:40)
[2016-10-23] MEDS: Metoprolol Tartrate TAB* 25 MG PO SCH ×2 (07:40→17:02)
[2016-10-23] MEDS: glipiZIDE TAB.XL* 2.5 MG PO SCH (07:40)
[2016-10-23] MEDS: Lansoprazole SOLUTAB* 30 MG PO SCH (07:40)
[2016-10-23] MEDS: predniSONE TAB* 10 MG PO SCH (07:40)
[2016-10-23] MEDS: Insulin LISPRO* 1 UNITS UNIT SUBCUT SCH ×4 (07:41→20:56)
[2016-10-23] MEDS: Insulin GLARGINE(*) 1 UNITS UNIT SUBCUT SCH (07:41)
[2016-10-23 07:43] LABS: BUN/Creatinine Ratio 13.1 (8-20); Calcium 8.1 mg/dL (8.6-10.3); EGFR African American 84.9 (>60); Potassium 4.2 mmol/L (3.5-5.0)
[2016-10-23] MEDS: PTO: Solifenacin(NF) 10 MG TAB PO SCH (07:45)
[2016-10-23] MEDS: Mometasone/Formoter 200/5 MDI INH SCH ×2 (08:35→20:26)
--- NOTE | 2016-10-23 15:09 | PN ---
Subjective Date of Service: 10/23/16 Interval History: HOSPITALIST PROGRESS NOTE Patient seen and examined at bedside. He's in good spirits today, joking with his . Happy his diet was advanced to "real food" and he can drink water. Sporadic cough with white sputum, but no dyspnea. Family History: Unchanged from Admission Social History: Unchanged from Admission Past Medical History: Unchanged from Admission Objective Active Medications: Acetaminophen (Tylenol Tab*) 650 mg PO Q6H PRN PRN Reason: FEVER > 101 Al Hydrox/Mg Hydrox/Simethicone (Maalox Plus*) 30 ml PO Q6H PRN PRN Reason: INDIGESTION Albuterol (Ventolin 2.5 Mg/3 Ml Neb.Shayla*) 2.5 mg INH Q4H PRN PRN Reason: SOB/WHEEZING Aspirin (Aspirin Ec Low Dose*) 81 mg PO DAILY [facility] Last Admin: 10/23/16 07:40 Dose: 81 mg Atorvastatin Calcium (Lipitor*) 80 mg PO 1700 [facility] Last Admin: 10/22/16 18:11 Dose: 80 mg Bisacodyl (Dulcolax Supp*) 10 mg [place] DAILY PRN PRN Reason: CONSTIPATION Dextrose (D50w Syringe 50 Ml*) 12.5 gm IV PUSH .FOR FS < 60 - SS PRN PRN Reason: FS < 60 Docusate Sodium (Colace Cap*) 100 mg PO BID PRN PRN Reason: CONSTIPATION Glipizide (Glucotrol Xl*) 2.5 mg PO DAILY [facility] Last Admin: 10/23/16 07:40 Dose: 2.5 mg Insulin Glargine (Lantus(*)) 12 units SUBCUT DAILY [facility] Last Admin: 10/23/16 07:41 Dose: 12 unit Insulin Human Lispro (Humalog*) 0 - 15 units SUBCUT ACHS [facility] PRN Reason: Protocol Last Admin: 10/23/16 12:09 Dose: 9 units Lansoprazole (Prevacid Solutab*) 30 mg PO 0730 [facility] Last Admin: 10/23/16 07:40 Dose: 30 mg Magnesium Hydroxide (Milk Of Magnesia Liq*) 30 ml PO Q6H PRN PRN Reason: CONSTIPATION Metoprolol Tartrate (Lopressor Tab*) 25 mg PO BID WITH MEALS [facility] Last Admin: 10/23/16 07:40 Dose: 25 mg Mometasone Furoate/Formoterol Fumar (Dulera 200/5 Mdi*) 2 puff INH BID [facility] Last Admin: 10/23/16 08:35 Dose: 2 puff Montelukast Sodium (Singulair Tab*) 10 mg PO BEDTIME [facility] Last Admin: 10/22/16 21:11 Dose: 10 mg Nitroglycerin (Nitroglycerin Tab 0.4 Mg*) 0.4 mg SL Q5M PRN PRN Reason: ANGINA Potassium Chloride (Klor-Con Liquid*) 20 meq PO DAILY [facility] Last Admin: 10/23/16 07:39 Dose: 20 meq Prednisone (Deltasone Tab*) 10 mg PO DAILY [facility] Stop: 10/25/16 12:00 Last Admin: 10/23/16 07:40 Dose: 10 mg Prednisone (Deltasone Tab*) 5 mg PO DAILY [facility] Stop: 10/28/16 12:00 Senna (Senokot Tab*) 2 tab PO BEDTIME PRN PRN Reason: CONSTIPATION Solifenacin (Vesicare(Nf)) 10 mg PO DAILY [facility] PRN Reason: Protocol Last Admin: 10/23/16 07:45 Dose: 10 mg Vital Signs 10/22/16 10/23/16 10/23/16 20:39 05:52 06:49 Temperature 98.7 F 97.6 F Pulse Rate 65 63 59 Respiratory 18 16 Rate Blood Pressure 171/64 149/70 (mmHg) O2 Sat by Pulse 97 98 100 Oximetry Oxygen Devices in Use Now: None Appearance: Pleasant elderly male sitting up in a recliner in [facility]. Eyes: No Scleral Icterus Ears/Nose/Mouth/Throat: Mucous Membranes Moist Neck: Trachea Midline Respiratory: Symmetrical Chest Expansion and Respiratory Effort, - - BS+ bilaterally coarse, with no added sounds Cardiovascular: RRR - Normal S1 and S2 Abdominal: NL Sounds; No Tenderness; No Distention Extremities: - - Bilateral LE pitting edema, but much improved. Neurological: Alert and Oriented x 3 Nutrition: Taking PO's Result Diagrams: 10/23/16 07:17 10/23/16 07:17 Assess/Plan/Problems-Billing Assessment: Mr Simmons is an 85 yo M who has a h/o CAD, Type II DM, HTN, COPD admitted with sepsis, bronchitis, complicated by GI bleed and CVA, discharged to [facility] on 10/18. - Patient Problems (1) Cough Comment: - This seems to be his baseline cough from COPD. - CxR showed no acute pulmonary disease. (2) Leukocytosis Comment: - No signs of infection at this time. - Suspect leukocytosis was associated with steroids. (3) H/O: GI bleed Comment: - No signs of GI bleed at this time. - Hb stable around 8.8 and stool occult blood was negative. - Continue PPI. (4) Type 2 diabetes mellitus Comment: - Continue Lantus, Lispro SS and Glipizide 2.5mg/day. Status and Disposition: Hospitalist service will continue to follow with you.
[2016-10-23] MEDS: Atorvastatin* 80 MG TAB PO SCH (17:02)
[2016-10-23] MEDS: Montelukast Sodium TAB* 10 MG PO SCH (20:24)
[2016-10-24] MEDS: Insulin LISPRO* 1 UNITS UNIT SUBCUT SCH ×4 (07:21→21:41)
[2016-10-24] MEDS: predniSONE TAB* 10 MG PO SCH (07:55)
[2016-10-24] MEDS: Aspirin EC Low Dose* 81 MG TAB.EC PO SCH (07:55)
[2016-10-24] MEDS: Potassium Chloride LIQUID* 20 MEQ PACKET PO SCH (07:55)
[2016-10-24] MEDS: Lansoprazole SOLUTAB* 30 MG PO SCH (07:55)
[2016-10-24] MEDS: Metoprolol Tartrate TAB* 25 MG PO SCH ×2 (07:55→17:18)
[2016-10-24] MEDS: Losartan TAB* 25 MG PO SCH (07:55)
[2016-10-24] MEDS: PTO: Solifenacin(NF) 10 MG TAB PO SCH (07:56)
[2016-10-24] MEDS: Hydrochlorothiazide TAB* 25 MG PO SCH (07:56)
[2016-10-24] MEDS: glipiZIDE TAB.XL* 2.5 MG PO SCH (07:56)
[2016-10-24] MEDS: Insulin GLARGINE(*) 1 UNITS UNIT SUBCUT SCH ×2 (07:57→08:22)
[2016-10-24] MEDS: Mometasone/Formoter 200/5 MDI INH SCH ×2 (07:59→21:30)
--- NOTE | 2016-10-24 15:42 | PN ---
Hospitalist Progress Note HOSPITALIST ADDENDUM Patient seems to be doing well. Offered no complaints, had brown BMs, tolerating diet well. Has cough, but that seems to be his baseline cough with whitish sputum. His leukocytosis is resolved, CxR showed no acute disease, H/H remains stable, but he remains at risk for recurrent infection and GI bleed. Continue current management. Hospitalist service will sign off. Please don't hesitate to contact us with any questions on concerns.
[2016-10-24] MEDS: Atorvastatin* 80 MG TAB PO SCH (17:13)
[2016-10-24] MEDS: Benzocaine/Menthol LOZ* 1 LOZENGE PO PRN (19:49)
[2016-10-24] MEDS: Montelukast Sodium TAB* 10 MG PO SCH (20:19)
[2016-10-25 07:48] LABS: Hematocrit 26 % (42-52); Hemoglobin 8.5 g/dl (14.0-18.0); Mean Corpuscular HGB Conc 33 g/dl (31-36); Mean Corpuscular Hemoglobin 29 pg (27-31); Mean Corpuscular Volume 90 fL (80-94); Mean Platelet Volume 9 um3 (7.4-10.4); Red Blood Count 2.88 10^6/ul (4.0-5.4); Red Cell Distribution Width 15 % (10.5-15); White Blood Count 7.9 10^3/ul (3.5-10.8)
[2016-10-25 08:00] LABS: Albumin 2.9 g/dL (3.2-5.2); BUN/Creatinine Ratio 11.9 (8-20); Calcium 8.2 mg/dL (8.6-10.3); EGFR African American 75.8 (>60); Globulin 2.2 g/dL (2-4); Potassium 3.7 mmol/L (3.5-5.0); Total Bilirubin 0.7 mg/dL (0.2-1.0); Total Protein 5.1 g/dL (6.4-8.9)
[2016-10-25] MEDS: Insulin LISPRO* 1 UNITS UNIT SUBCUT SCH ×4 (08:26→20:43)
[2016-10-25] MEDS: Metoprolol Tartrate TAB* 25 MG PO SCH ×2 (08:56→16:41)
[2016-10-25] MEDS: Losartan TAB* 25 MG PO SCH (08:57)
[2016-10-25] MEDS: Hydrochlorothiazide TAB* 25 MG PO SCH (08:57)
[2016-10-25] MEDS: predniSONE TAB* 10 MG PO SCH (08:57)
[2016-10-25] MEDS: Lansoprazole SOLUTAB* 30 MG PO SCH (08:57)
[2016-10-25] MEDS: Aspirin EC Low Dose* 81 MG TAB.EC PO SCH (08:57)
[2016-10-25] MEDS: Potassium Chloride LIQUID* 20 MEQ PACKET PO SCH (08:57)
[2016-10-25] MEDS: glipiZIDE TAB.XL* 2.5 MG PO SCH (08:57)
[2016-10-25] MEDS: PTO: Solifenacin(NF) 10 MG TAB PO SCH (08:57)
[2016-10-25] MEDS: Mometasone/Formoter 200/5 MDI INH SCH ×2 (08:59→20:10)
[2016-10-25] MEDS: Benzocaine/Menthol LOZ* 1 LOZENGE PO PRN ×3 (08:59→18:45)
[2016-10-25] MEDS: Insulin GLARGINE(*) 1 UNITS UNIT SUBCUT SCH (09:11)
[2016-10-25] MEDS: Atorvastatin* 80 MG TAB PO SCH (16:41)
[2016-10-25] MEDS: Analgesic BALM* 114 GM TOPICAL SCH (20:09)
[2016-10-25] MEDS: Montelukast Sodium TAB* 10 MG PO SCH (20:09)
[2016-10-26] MEDS: Lansoprazole SOLUTAB* 30 MG PO SCH (07:36)
[2016-10-26] MEDS: Insulin LISPRO* 1 UNITS UNIT SUBCUT SCH ×4 (07:40→21:17)
[2016-10-26] MEDS: Potassium Chloride LIQUID* 20 MEQ PACKET PO SCH (08:16)
[2016-10-26] MEDS: Losartan TAB* 25 MG PO SCH (08:17)
[2016-10-26] MEDS: Hydrochlorothiazide TAB* 25 MG PO SCH (08:17)
[2016-10-26] MEDS: glipiZIDE TAB.XL* 2.5 MG PO SCH (08:17)
[2016-10-26] MEDS: Aspirin EC Low Dose* 81 MG TAB.EC PO SCH (08:17)
[2016-10-26] MEDS: Metoprolol Tartrate TAB* 25 MG PO SCH ×2 (08:17→17:02)
[2016-10-26] MEDS: PTO: Solifenacin(NF) 10 MG TAB PO SCH (08:18)
[2016-10-26] MEDS: predniSONE TAB* 5 MG PO SCH (08:18)
[2016-10-26] MEDS: Insulin GLARGINE(*) 1 UNITS UNIT SUBCUT SCH (08:22)
[2016-10-26] MEDS: Analgesic BALM* 114 GM TOPICAL SCH ×2 (08:23→21:18)
[2016-10-26] MEDS: Mometasone/Formoter 200/5 MDI INH SCH ×2 (08:24→21:04)
[2016-10-26] MEDS: Benzocaine/Menthol LOZ* 1 LOZENGE PO PRN (09:39)
[2016-10-26] MEDS: Atorvastatin* 80 MG TAB PO SCH (17:02)
[2016-10-26] MEDS: Montelukast Sodium TAB* 10 MG PO SCH (21:18)
[2016-10-27] MEDS: Insulin LISPRO* 1 UNITS UNIT SUBCUT SCH ×4 (07:47→20:57)
[2016-10-27] MEDS: Lansoprazole SOLUTAB* 30 MG PO SCH (08:20)
[2016-10-27] MEDS: Potassium Chloride LIQUID* 20 MEQ PACKET PO SCH (08:30)
[2016-10-27] MEDS: Hydrochlorothiazide TAB* 25 MG PO SCH (08:31)
[2016-10-27] MEDS: Losartan TAB* 25 MG PO SCH (08:31)
[2016-10-27] MEDS: Aspirin EC Low Dose* 81 MG TAB.EC PO SCH (08:32)
[2016-10-27] MEDS: predniSONE TAB* 5 MG PO SCH (08:32)
[2016-10-27] MEDS: glipiZIDE TAB.XL* 2.5 MG PO SCH (08:32)
[2016-10-27] MEDS: PTO: Solifenacin(NF) 10 MG TAB PO SCH (08:32)
[2016-10-27] MEDS: Metoprolol Tartrate TAB* 25 MG PO SCH ×2 (08:32→17:03)
[2016-10-27] MEDS: Insulin GLARGINE(*) 1 UNITS UNIT SUBCUT SCH (08:33)
[2016-10-27] MEDS: Mometasone/Formoter 200/5 MDI INH SCH ×2 (08:35→20:25)
[2016-10-27] MEDS: Analgesic BALM* 114 GM TOPICAL SCH ×2 (08:39→20:58)
[2016-10-27] MEDS: Benzocaine/Menthol LOZ* 1 LOZENGE PO PRN (10:48)
[2016-10-27] MEDS: Atorvastatin* 80 MG TAB PO SCH (17:03)
[2016-10-27] MEDS: Montelukast Sodium TAB* 10 MG PO SCH (20:57)
[2016-10-28] MEDS: Insulin LISPRO* 1 UNITS UNIT SUBCUT SCH ×4 (08:18→20:48)
[2016-10-28] MEDS: glipiZIDE TAB.XL* 2.5 MG PO SCH (08:27)
[2016-10-28] MEDS: Metoprolol Tartrate TAB* 25 MG PO SCH ×2 (08:27→17:05)
[2016-10-28] MEDS: predniSONE TAB* 5 MG PO SCH (08:27)
[2016-10-28] MEDS: Losartan TAB* 25 MG PO SCH (08:27)
[2016-10-28] MEDS: Hydrochlorothiazide TAB* 25 MG PO SCH (08:28)
[2016-10-28] MEDS: Aspirin EC Low Dose* 81 MG TAB.EC PO SCH (08:28)
[2016-10-28] MEDS: Lansoprazole SOLUTAB* 30 MG PO SCH (08:28)
[2016-10-28] MEDS: PTO: Solifenacin(NF) 10 MG TAB PO SCH (08:28)
[2016-10-28] MEDS: Potassium Chloride LIQUID* 20 MEQ PACKET PO SCH (08:28)
[2016-10-28] MEDS: Insulin GLARGINE(*) 1 UNITS UNIT SUBCUT SCH (08:32)
[2016-10-28] MEDS: Mometasone/Formoter 200/5 MDI INH SCH ×2 (08:33→20:54)
[2016-10-28] MEDS: Analgesic BALM* 114 GM TOPICAL SCH ×2 (09:24→20:29)
[2016-10-28] MEDS: Bacitracin OINTMENT* 0.5% 0.5 oz TUBE TOPICAL SCH (14:14)
[2016-10-28] MEDS: Atorvastatin* 80 MG TAB PO SCH (17:05)
[2016-10-28] MEDS: Montelukast Sodium TAB* 10 MG PO SCH (20:23)
[2016-10-29] MEDS: Insulin LISPRO* 1 UNITS UNIT SUBCUT SCH ×4 (08:09→20:57)
[2016-10-29] MEDS: Insulin GLARGINE(*) 1 UNITS UNIT SUBCUT SCH (08:16)
[2016-10-29] MEDS: Hydrochlorothiazide TAB* 25 MG PO SCH (08:19)
[2016-10-29] MEDS: glipiZIDE TAB.XL* 2.5 MG PO SCH (08:19)
[2016-10-29] MEDS: Losartan TAB* 25 MG PO SCH (08:19)
[2016-10-29] MEDS: Aspirin EC Low Dose* 81 MG TAB.EC PO SCH (08:20)
[2016-10-29] MEDS: Metoprolol Tartrate TAB* 25 MG PO SCH ×2 (08:21→17:50)
[2016-10-29] MEDS: Lansoprazole SOLUTAB* 30 MG PO SCH (08:22)
[2016-10-29] MEDS: PTO: Solifenacin(NF) 10 MG TAB PO SCH (08:23)
[2016-10-29] MEDS: Potassium Chloride LIQUID* 20 MEQ PACKET PO SCH (08:24)
[2016-10-29] MEDS: Mometasone/Formoter 200/5 MDI INH SCH ×2 (08:25→20:52)
[2016-10-29] MEDS: Analgesic BALM* 114 GM TOPICAL SCH ×2 (10:00→20:57)
[2016-10-29] MEDS: Bacitracin OINTMENT* 0.5% 0.5 oz TUBE TOPICAL SCH (10:30)
--- NOTE | 2016-10-29 12:40 | PMRUTEAM ---
PMRU: Goals Current Status: Nursing: Current Status Skin Deviations [Right Lower Blister Leg] Skin Deviations [Right Ankle] Abrasion Skin Deviations [Left Abrasion Posterior Hand] Skin Deviations [Bilateral Arm Bruise ] Skin Deviations [Bilateral Leg Abrasion,Bruise ] Skin Deviation Description [ not seen. Right Lower Leg] Skin Deviation Description [ 4x4 with paper tape placed for barrier Right Ankle] Skin Deviation Description [ not seen Left Posterior Hand] Skin Deviation Description [ Patches of redness on arms- describes pt. on Bilateral Arm] previous anticoagulant Skin Deviation Description [ 2x2 and paper tape to abrasion, tecaderm to the Bilateral Leg] blister. Bladder Current Status he is both incontenent and continent. we are toileting every 2hours Bowel Current Status both contenent and incontinent Physical Therapy: Current Status Bed Mobility Assistance Supervision Transfer Moblility Assistance Supervision Transfer/Bed Mobility None,Rolling Walker Recommended Devices Ambulation Assistance Supervision Ambulation Assistive Devices None,Rolling Walker Number of Feet Patient 160' without an assistive device and 300' using 2 Ambulated w/w S x 1. Stairs Assistance Supervision Stairs Recommended Devices Two Rails Number of Stairs 10 Curb Not Tested Occupational Therapy: Current Status Upper Body Dressing Supervision Lower Body Dressing Contact Guard Assist,Min Assist Bathing Min Assist Toileting Min Assist Toilet Transfer Supervision Shower Transfer Supervision Eating Supervision Instrumental ADL TOTAL ASSIST Rec Therapy: Current Status Summary of Assessment and RT assessment complete and pt. is aware of RT Clinical Impression services. Pt. identifies with an active leisure life and is open to continued leisure visits. Treatment Goals Pt. will engage in leisure activities while on the unit. Treatment Plan Provide RT services and encourage involvement. Social Work: Current Status Discharge Plan return home with home care svs and family support Potential for Family Training pt's is involved and attentive Anticipated Discharge Home Destination Discharge With home care svs and family support Nutrition: Current Status Monitoring Pt continues with good intake: 100% of meals; making progress with advancement of diet texture: receiving [facility] texture, thin liquids as of 10/23. Also receiving a Glucerna shake at D daily; no indication since pt eating well, and obese per BMI 31.5, so will d/c. Noted BG escalation to 332 yesterday; last dose of prednisone was yesterday, and fasting BG acceptable today: 119. Will follow for improvement in BG control now that steroids d/ c. Continues with regular BMs (last BM 10/28); incontinent and continent. Skin remains intact. No change in intervention indicated. Speech: Current Status Assessment Recommend continued diet of thin liquid and mechanical soft solids with extra sauces and gravies as pt was impulsive with po intake with regular solids this date with mild right oral residuals. The patient presented with continued improvements with word finding in conversation and structured therapy tasks. Recommend continued skilled MEDIATION COMMISSIONER services for advanced diet trials with MEDIATION COMMISSIONER, and receptive/ expressive language treatment for improved safety, function and independence for daily living tasks. Will progress and assess higher level cognitive- linguistic tasks next service date. Goals: Physical Therapy: Initial Goals Bed Mobility Assistance Independent Transfer Mobility Assistance Independent Transfer/Bed Mobility None Recommended Devices Ambulation Independent Ambulation Recommended Devices Rolling Walker Ambulation Distance 150 Stairs Assistance Independent Stair Recommended Devices One Rail Number of Stairs 5 Physical Therapy: Updated Goals Bed Mobility Assistance Independent Transfer Mobility Assistance Independent Transfer/Bed Mobility Rolling Walker Recommended Devices Ambulation Assistance Independent Ambulation Assistive Devices Rolling Walker Ambulation Distance (ft) 150' Stairs Assistance Independent Stairs Recommended Devices One Rail Number of Stairs 5 Home Exercise Program Independent Assistance Occupational Therapy: Initial Goals Goals to be Completed in (Days 14-17 ) Upper Body Bathing Routine Independent Lower Body Bathing Routine Modified Independent with Upper Body Dressing Routine Independent Lower Body Dressing Routine Modified Independent with Toilet Hygeine and Clothing Modified Independent with Management Routine Toilet Transfer Routine Modified Independent with Step-In Shower Transfer Modified Independent with Routine Functional Transfers for ADL Modified Independent with Grooming Routine Independent Feeding Routine Independent Light Housekeeping Tasks Minimal Contact Assist May need help with medication management including managing diabetes. Nursing: Goals Bladder Goal independent with pericare and changing briefs Bowel Goal to be able to control bowels and do own selfcare Nutrition: Goals Intervention Goals 1. Tolerates least restrictive texture/thickness w/o signs of aspiration/penetration. 2. Achieve/maintain adequate glycemic control per inpatient parameters w/o hypoglycemia. 3. Maintain bowel regularity w/o constipation or diarrhea. 4. Maintain adequate oral intake to support weight maintenance, preservation of lean body mass . Speech: Goals Speech Goal 1 See below Goal 1 Comments LTO: The patient will demonstrate safe po of thin liquid and regular solids or least restrictive diet without overt s/s of aspiration/penetration per MEDIATION COMMISSIONER observation / nsg report. STGs: 1. The patient will perform oropharyngeal swallow exericses with initial cue only for HEP. * Data 10/22/16: The patient was reeducated on HEP of Sylvia and effortful swallow for which he demonstrated understanding. 2. The patient will demonstrate safe po of nectar- thick liquid trials with MEDIATION COMMISSIONER only with no overt s/ s of aspiration/penetration over 9/10 trials. Goal met - upgrade to nectar thick liquid. * Data from 10/22/16:The patient demonstrated safe po of nectar thick liquid via small cup sip with no overt s/s of aspiration/penetration without cues for use of chin tuck over 4oz. The patient demonstrated safe po of nectar thick liquid without cues of chin tuck with no overt s/s of aspiration/penetration on 9/10 trials. Recommend upgrade to nectar thick liquid with use of chin tuck per MD orders. 3. The patient will demonstrate safe po of trials of mechanical soft solids with MEDIATION COMMISSIONER only with no overt s/s of aspiration/penetration over 9/10 trials. * Data from 10/22/16:The patient demonstrated safe po of mechanical soft solids trial with no overt s /s of aspiration/penetration over 20 trials. The patient presented with min oral residuals requiring initial cue for liquid wash. The patient did not require cue this date for rate of oral intake. Recommend upgrade to mechanical soft solids with extra sauces and gravies per MD orders . 4. The patient will demonstrate safe po of trials of thin liquid with MEDIATION COMMISSIONER only with no overt s/s of aspiration/penetration over 9/10 trials. *The patient demonstrated safe po of 8oz of thin liquid with no overt s/s of aspiration/penetration . 5.The patient will demonstrate safe po of trials of regular solids with MEDIATION COMMISSIONER only with no overt s/s of aspiration/penetration over 9/10 trials. *The patient demonstrated safe po of trials of regular solids with no overt s/s of aspiration/ penetration on 9/10 trials. The patient presented with throat clear x1. The patient presented with impulsivity noted with po intake and right oral pocketing noted. This cleared with cued liquid wash and cues for reducing rate. Speech Goal 2 See below Speech Goal 2 Comments LTO: The patient will comprehend daily tasks including multistep tasks/ directions with use of compensatory strategies as needed. STGs: 1. The patient will complete complex/abstract yes/ no questions at 90% accuracy. 2. The patient will follow complex step commands at 90% accuracy. Speech Goal 3 See below Speech Goal 3 Comments LTO: The patient will express daily wants and needs with use of compensatory strategies as needed. STGs: 1. The patient will complete various functional word finding tasks at 90% accuracy. * Given three items in an abstract category, the patient labeled the category at 60% accuracy, improving to 90% with min cues. The patient then provided additional member in the category at 40% accuracy independently, improving to 70% with moderate cues. 2. The patient will demonstrate use of two word finding strategies during structured tasks over 2 session. *The patient recalled and stated 2 word finding strategies from start of MEDIATION COMMISSIONER session this date. The patient demonstrated understanding during descriptions with semantic feature analysis with min cues. Social Work: Goals Discharge Plan return home with home care svs and family support Potential for Family Training pt's is involved and attentive Anticipated Discharge Home Destination Discharge With home care svs and family support Care Plan: Care Plan ADL's - Improve/Maintain Start: 10/18/16 13:54 Freq: DAILY Status: Active Target: Activity Type Activity Date Activity User E-Sign Co-Sign Detail Recorded Client Recorded Date Recorded By Document 10/25/16 13:26 [id number] 10/25/16 13:26 [id number] 10/25/16 13:26 PMRU Outcome: ADL's/ADL Transfers Orders/Interventions Occupational Therapy Evaluation & Treatment Device Yes Patient to receive OT 5x/wk for 60-120 Therex min/day Self Care Management Group Therapy Neuromuscular ReEducation UE/LE ADL's with Assist Yes: Mod I ADL Transfers with Assist Yes: Mod I Toileting: Transfers,Clothing Management Yes: Mod I ,Hygeine w/Assist Light Kitchen/Laundry w/Assist Yes: Mod I Progression Toward Outcome/Goals Progressing Communication-Improve/Maintain Start: 10/18/16 16:31 Freq: DAILY Status: Active Target: Activity Type Activity Date Activity User E-Sign Co-Sign Detail Recorded Client Recorded Date Recorded By Document 10/29/16 04:44 [id number] 10/29/16 04:44 [id number] 10/29/16 04:44 PMRU Outcome: Communication/Cognitive Status Outcome/Goals Makes Needs Known Effectively Other Outcomes/Goals The patient will comprehend /express daily wants and needs independently with use of compensatory strategies Progression Toward Outcomes/Goals Progressing Outcome/Goals Met Comment The patient continued to make progress with expressive language tasks . DVT Prophylaxis- Improve/Maintain Start: 10/19/16 00:41 Freq: DAILY Status: Active Target: Activity Type Activity Date Activity User E-Sign Co-Sign Detail Recorded Client Recorded Date Recorded By Document 10/29/16 04:44 [id number] [id number] 10/29/16 04:44 [id number] 10/29/16 04:44 PMRU Outcome: DVT Prophylaxis Outcome/Goals Remains Free of DVT Complies with DVT Prophylaxis /Treatment Demonstrates Knowledge of DVT Prevention/ Treatment Other Outcome/Goals CESIA wraps during the day Progression Toward Outcome/Goals Progressing Discharge Planning - Improve/Maintain Start: 10/19/16 00:41 Freq: DAILY Status: Active Target: Activity Type Activity Date Activity User E-Sign Co-Sign Detail Recorded Client Recorded Date Recorded By Document 10/29/16 04:44 [id number] [email or web address]-M06 10/29/16 04:44 [id number] 10/29/16 04:44 PMRU Outcome: Discharge Planning Identify Patient Needs yes Update Patient Family No Outcome/Goals Demonstrates Understanding of Discharge Plan Progression Toward Outcome/Goals Progressing /GI-Improve/Maintain Start: 10/19/16 00:41 Freq: DAILY Status: Active Target: Activity Type Activity Date Activity User E-Sign Co-Sign Detail Recorded Client Recorded Date Recorded By Document 10/29/16 04:44 [id number] 10/29/16 04:44 [id number] 10/29/16 04:44 PMRU Outcome: Genitourinary/ Gastrointestinal Genitourinary- Outcome/Goals Maintain/ Achieve Adequate Urinary Output Remain Free of Hospital- Acquired UTI Gastrointestinal-Outcome/Goals Remain Free of Emesis Prevent Constipation Laxatives as Ordered Other Outcome/Goals Pt know he needs to void but can not feel when he is urinating. Progression Toward Outcome/Goals - Progressing Progression Toward Outcome/Goals - GI Progressing Metabolic Status- Improve/Maintain Start: 10/19/16 00:41 Freq: DAILY Status: Active Target: Activity Type Activity Date Activity User E-Sign Co-Sign Detail Recorded Client Recorded Date Recorded By Document 10/29/16 04:44 [id number] 10/29/16 04:44 [id number] 10/29/16 04:44 PMRU Outcome: Metabolic Status Have Fingersticks Been Ordered Yes Fingerstick Order Frequency AC & HS Outcome/Goals Maintain/ Improve Metabolic Status Demonstrate Knowledge of Prevention/ Treatment of Metabolic Imbalances Progression Toward Outcome/Goals Progressing Mobility- Improve/Maintain Start: 10/18/16 17:35 Freq: DAILY Status: Active Target: Activity Type Activity Date Activity User E-Sign Co-Sign Detail Recorded Client Recorded Date Recorded By Document 10/29/16 12:16 [id number] [email or web address] 10/29/16 12:16 [id number] 10/29/16 12:16 PMRU Outcome: Mobility Physical Therapy Evaluation and Yes Treatment Activity OOB with Assistance Yes Assistance Yes Patient to be seen 5x/wk for 60-120 min/ Therex day for: Mobility Training Gait Training Balance Outcome/Goals Maintain/ Achieve Baseline Mobility Status Improve Mobility Status Demonstrates Proper Use of Assistive Devices Free from Complications of Immobility Progression Toward Outcome/Goals Progressing Bed Mobility Yes: independent Transfers Yes: independent Gait x ft Yes: independent with RW 150' Up/Down Stairs Yes: independent ascent/descent with 1 rail Nutrition/Swallowing- Improve/Maintain Start: 10/18/16 16:31 Freq: DAILY Status: Active Target: Activity Type Activity Date Activity User E-Sign Co-Sign Detail Recorded Client Recorded Date Recorded By Document 10/29/16 04:44 [id number] 10/29/16 04:44 [id number] 10/29/16 04:44 PMRU Outcome: Nutrition/Swallowing Outcome/Goals Demonstrates Adequate Hydration/ Prevents Dehydration Maintain/ Improve Nutritional Status Other Outcome/Goals The patient will demonstrate safe po of thin liquid and regular solids or least restrictive diet with no overt s/s of aspiration/ penetration per MEDIATION COMMISSIONER observation / nsg report. Progression Toward Outcome/Goals Progressing Outcome/Goals Met Comment Thin liquid and mechanical soft solids with no straws. Safety- Improve/Maintain Start: 10/19/16 00:41 Freq: DAILY Status: Active Target: Activity Type Activity Date Activity User E-Sign Co-Sign Detail Recorded Client Recorded Date Recorded By Document 10/29/16 04:44 [id number] 10/29/16 04:44 [id number] 10/29/16 04:44 PMRU Outcome: Safety Outcome/Goals Remain Free of Injury or Harm Cooperates with Safety Measures for Least Restrictive Environment Prevent Falls/ Injury Other Outcome/Goals PA remains in place for safety Progression Toward Outcome/Goals Progressing Skin- Improve/Maintain Start: 10/19/16 00:41 Freq: DAILY Status: Active Target: Activity Type Activity Date Activity User E-Sign Co-Sign Detail Recorded Client Recorded Date Recorded By Document 10/29/16 04:44 [id number] 10/29/16 04:44 [id number] 10/29/16 04:44 PMRU Outcome: Skin Skin Risk Level Medium Skin Orders Heels Off Bed Turn/Position q2hr While in Bed Outcome/Goals Maintain/ Improve Skin Intergrity Free from Decubitus Progression Toward Outcome/Goals Progressing Outcome/Goals Met Comment cream applied to red buttocks Medicine Note: Length of Stay: [1 more week] Anticipated Discharge Destination: Home Tentative Discharge Date: [11/05/16] Discharged to: [home with family support]
--- NOTE | 2016-10-29 16:00 | CONSULT ---
Consult Consult: 85 year old man with recent hospitalization for right parietal stroke with left hemiparesis (seen by dr brown at the time), GI bleed (dual anti platelets held at time), LELO, delirium, in rehab for past 2 weeks, now presenting with several days of noted, non bothersome involuntary tongue movements. He had some tremor or tremulousness on hus left side at the time of his stroke, but his family has not seen this in several weeks. He is not stiff; he has been eating ok; he has been ambulating with a walker or even better. His vesicare was held out of concern for possible anticholinergic effects. He received prn Haldol in early Oct during his hospital stay while delirious and combative. Meds/allergires see dec; incl lyrica PMH R parietal stroke, GI bleed, LELO/CKD, DM, CAD w/ stents, HTN, HL, prostate cancer, appy, hearing aides [facility] [place] SH lives with ; remote tobacco; neg etoh; lives with , dtr present as well ROS 10 point ros negative esave urinary leakage, otherwise as per hpi general Examination: no apparent distress, no edema, male of stated age Neurologic Examination Mental Status: alert, oriented, fund of knowledge normal, concentration and recent and remote memory observationally intact, fluent speech, reactive affect , no neglect. Cranial Nerves: III, IV, V, , VII, IX, X, XI and XII intact. Funduscopy deferred. Has hearing aides. Occasional tongue ptotrusion snake like movements, usually to right; patient unaware. No hypomimia/phonia Motor: normal bulk and tone. Power testing is 5/5. There is no pronator drift or tremor. No truncal or head dyskinesias. Sensory: vibration reduced feet; touch intact. Reflexes: 1+ upper extremities and knees; ankles absent. Plantar responses are equivocal Coordination: finger to nose is symmetric and intact Gait: deferred Serologies: Hct 26; aic 6.7; chem, LFTs, cvpk, trop, crp, bnp, lipids, psa, tsh , ddimer are all normal or negative Imagin/17 brain mri showed subacute right parietal stroke CTA head and neck negative per report TTE negative per report, including bubble study cxr neg; CT abd with fatty liver only; CTA chest neg; 11/19 leg u/s neg DVT Impression 85 year old man with recent hospitalization for right parietal stroke (improved/ resolved left hemiparesis), GI bleed, LELO, resolved delirium, presenting with involuntary tongue movements. His neuro exams is commensurate with this issue; he otherwise has only decreased sensation presumably from diabetic neuropathy. 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 We discussed that this will hopefully improve with tincture of time; neither him nor his family is bothered by it. 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
[2016-10-29] MEDS: Atorvastatin* 80 MG TAB PO SCH (17:50)
[2016-10-29] MEDS: Montelukast Sodium TAB* 10 MG PO SCH (20:54)
[2016-10-30] MEDS: Insulin LISPRO* 1 UNITS UNIT SUBCUT SCH ×4 (08:23→20:53)
[2016-10-30] MEDS: Aspirin EC Low Dose* 81 MG TAB.EC PO SCH (08:42)
[2016-10-30] MEDS: Lansoprazole SOLUTAB* 30 MG PO SCH (08:42)
[2016-10-30] MEDS: Metoprolol Tartrate TAB* 25 MG PO SCH ×2 (08:43→17:09)
[2016-10-30] MEDS: glipiZIDE TAB.XL* 2.5 MG PO SCH (08:43)
[2016-10-30] MEDS: Losartan TAB* 25 MG PO SCH (08:44)
[2016-10-30] MEDS: Hydrochlorothiazide TAB* 25 MG PO SCH (08:44)
[2016-10-30] MEDS: Potassium Chloride LIQUID* 20 MEQ PACKET PO SCH (08:45)
[2016-10-30] MEDS: Insulin GLARGINE(*) 1 UNITS UNIT SUBCUT SCH (08:46)
[2016-10-30] MEDS: Mometasone/Formoter 200/5 MDI INH SCH ×2 (08:48→20:46)
[2016-10-30] MEDS: Analgesic BALM* 114 GM TOPICAL SCH ×2 (09:00→20:54)
[2016-10-30] MEDS: Bacitracin OINTMENT* 0.5% 0.5 oz TUBE TOPICAL SCH (10:41)
[2016-10-30] MEDS: Atorvastatin* 80 MG TAB PO SCH (17:09)
[2016-10-30] MEDS: Benzocaine/Menthol LOZ* 1 LOZENGE PO PRN (18:30)
[2016-10-30] MEDS: Montelukast Sodium TAB* 10 MG PO SCH (20:52)
[2016-10-31] MEDS: Benzocaine/Menthol LOZ* 1 LOZENGE PO PRN ×2 (05:33→14:34)
[2016-10-31] MEDS: Insulin LISPRO* 1 UNITS UNIT SUBCUT SCH ×4 (07:45→20:57)
[2016-10-31] MEDS: Hydrochlorothiazide TAB* 25 MG PO SCH (08:14)
[2016-10-31] MEDS: glipiZIDE TAB.XL* 2.5 MG PO SCH (08:14)
[2016-10-31] MEDS: Metoprolol Tartrate TAB* 25 MG PO SCH ×2 (08:15→17:21)
[2016-10-31] MEDS: Lansoprazole SOLUTAB* 30 MG PO SCH (08:15)
[2016-10-31] MEDS: Losartan TAB* 25 MG PO SCH (08:16)
[2016-10-31] MEDS: Aspirin EC Low Dose* 81 MG TAB.EC PO SCH (08:16)
[2016-10-31] MEDS: Potassium Chloride LIQUID* 20 MEQ PACKET PO SCH (08:17)
[2016-10-31] MEDS: Insulin GLARGINE(*) 1 UNITS UNIT SUBCUT SCH (08:18)
[2016-10-31] MEDS: Mometasone/Formoter 200/5 MDI INH SCH ×2 (09:09→21:09)
[2016-10-31] MEDS: Bacitracin OINTMENT* 0.5% 0.5 oz TUBE TOPICAL SCH (11:29)
[2016-10-31] MEDS: Analgesic BALM* 114 GM TOPICAL SCH ×2 (11:29→21:05)
[2016-10-31] MEDS: Atorvastatin* 80 MG TAB PO SCH (17:17)
[2016-10-31] MEDS: Montelukast Sodium TAB* 10 MG PO SCH (21:05)
[2016-11-01] MEDS: GuaiFENesin DM* 5 ML UDC PO PRN ×2 (01:14→21:42)
[2016-11-01] MEDS: Benzocaine/Menthol LOZ* 1 LOZENGE PO PRN (05:00)
[2016-11-01 07:41] LABS: Hematocrit 25 % (42-52); Hemoglobin 8.4 g/dl (14.0-18.0); Mean Corpuscular HGB Conc 33 g/dl (31-36); Mean Corpuscular Hemoglobin 29 pg (27-31); Mean Corpuscular Volume 87 fL (80-94); Mean Platelet Volume 8 um3 (7.4-10.4); Red Blood Count 2.92 10^6/ul (4.0-5.4); Red Cell Distribution Width 15 % (10.5-15); White Blood Count 5.1 10^3/ul (3.5-10.8)
[2016-11-01] MEDS: Insulin LISPRO* 1 UNITS UNIT SUBCUT SCH ×4 (07:41→20:59)
[2016-11-01] MEDS: Insulin GLARGINE(*) 1 UNITS UNIT SUBCUT SCH (07:41)
[2016-11-01 07:54] LABS: Albumin 3.1 g/dL (3.2-5.2); BUN/Creatinine Ratio 18.6 (8-20); Calcium 8.6 mg/dL (8.6-10.3); EGFR African American 75.8 (>60); Globulin 2.5 g/dL (2-4); Potassium 4.2 mmol/L (3.5-5.0); Total Bilirubin 0.7 mg/dL (0.2-1.0); Total Protein 5.6 g/dL (6.4-8.9)
[2016-11-01] MEDS: Potassium Chloride LIQUID* 20 MEQ PACKET PO SCH (08:17)
[2016-11-01] MEDS: Losartan TAB* 25 MG PO SCH (08:19)
[2016-11-01] MEDS: Metoprolol Tartrate TAB* 25 MG PO SCH ×2 (08:19→17:14)
[2016-11-01] MEDS: Aspirin EC Low Dose* 81 MG TAB.EC PO SCH (08:19)
[2016-11-01] MEDS: Hydrochlorothiazide TAB* 25 MG PO SCH (08:20)
[2016-11-01] MEDS: Lansoprazole SOLUTAB* 30 MG PO SCH (08:20)
[2016-11-01] MEDS: Bacitracin OINTMENT* 0.5% 0.5 oz TUBE TOPICAL SCH (08:20)
[2016-11-01] MEDS: glipiZIDE TAB.XL* 2.5 MG PO SCH (08:21)
[2016-11-01] MEDS: Analgesic BALM* 114 GM TOPICAL SCH ×2 (08:21→20:55)
[2016-11-01] MEDS: Albuterol 2.5 MG/3 ML NEB.SOL* (0.083%) INH PRN (09:34)
[2016-11-01] MEDS: Mometasone/Formoter 200/5 MDI INH SCH ×2 (09:34→20:24)
[2016-11-01] MEDS: Clopidogrel TAB* 75 MG PO SCH (10:07)
--- NOTE | 2016-11-01 10:43 | RAD ---
HISTORY: Cough COMPARISONS: 10/22/2016 VIEWS: 2: Frontal dual-energy and lateral views of the chest. FINDINGS: CARDIOMEDIASTINAL SILHOUETTE: The cardiomediastinal silhouette is normal. LINNEA: The linnea are normal. PLEURA: The costophrenic angles are sharp. No pleural abnormalities are noted. LUNG PARENCHYMA: There is mild hyperinflation ABDOMEN: The upper abdomen is clear. There is no subphrenic gas. BONES AND SOFT TISSUES: Degenerative changes are noted along the spine. OTHER: None. IMPRESSION: NO ACTIVE CARDIOPULMONARY DISEASE.
[2016-11-01] MEDS: Atorvastatin* 80 MG TAB PO SCH (17:14)
[2016-11-01] MEDS: Montelukast Sodium TAB* 10 MG PO SCH (20:25)
[2016-11-02] MEDS: Insulin GLARGINE(*) 1 UNITS UNIT SUBCUT SCH (07:51)
[2016-11-02] MEDS: Insulin LISPRO* 1 UNITS UNIT SUBCUT SCH ×4 (07:51→21:14)
[2016-11-02] MEDS: Mometasone/Formoter 200/5 MDI INH SCH ×2 (08:45→20:50)
[2016-11-02] MEDS: Metoprolol Tartrate TAB* 25 MG PO SCH ×2 (08:46→16:53)
[2016-11-02] MEDS: Losartan TAB* 25 MG PO SCH (08:46)
[2016-11-02] MEDS: Clopidogrel TAB* 75 MG PO SCH (08:46)
[2016-11-02] MEDS: Lansoprazole SOLUTAB* 30 MG PO SCH (08:46)
[2016-11-02] MEDS: Aspirin EC Low Dose* 81 MG TAB.EC PO SCH (08:46)
[2016-11-02] MEDS: glipiZIDE TAB.XL* 2.5 MG PO SCH (08:46)
[2016-11-02] MEDS: Potassium Chloride LIQUID* 20 MEQ PACKET PO SCH (08:46)
[2016-11-02] MEDS: Hydrochlorothiazide TAB* 25 MG PO SCH (08:46)
[2016-11-02] MEDS: Bacitracin OINTMENT* 0.5% 0.5 oz TUBE TOPICAL SCH (08:51)
[2016-11-02] MEDS: Analgesic BALM* 114 GM TOPICAL SCH ×2 (08:51→20:57)
[2016-11-02] MEDS: Albuterol 2.5 MG/3 ML NEB.SOL* (0.083%) INH PRN (12:32)
[2016-11-02] MEDS: Atorvastatin* 80 MG TAB PO SCH (16:53)
[2016-11-02] MEDS: Benzocaine/Menthol LOZ* 1 LOZENGE PO PRN (19:31)
[2016-11-02] MEDS: Montelukast Sodium TAB* 10 MG PO SCH (20:54)
[2016-11-02] MEDS: GuaiFENesin DM* 5 ML UDC PO PRN (22:09)
[2016-11-03] MEDS ORDERED: Insulin GLARGINE(*) 1 UNITS UNIT SUBCUT SCH ×2 (08:22→17:00)
[2016-11-03] MEDS: Insulin LISPRO* 1 UNITS UNIT SUBCUT SCH ×4 (08:42→21:07)
[2016-11-03] MEDS ORDERED: Insulin GLARGINE(*) 1 UNITS UNIT ONE (08:47)
[2016-11-03] MEDS: Metoprolol Tartrate TAB* 25 MG PO SCH ×2 (08:48→17:13)
[2016-11-03] MEDS: Hydrochlorothiazide TAB* 25 MG PO SCH (08:48)
[2016-11-03] MEDS: Lansoprazole SOLUTAB* 30 MG PO SCH (08:48)
[2016-11-03] MEDS: Aspirin EC Low Dose* 81 MG TAB.EC PO SCH (08:48)
[2016-11-03] MEDS: Clopidogrel TAB* 75 MG PO SCH (08:48)
[2016-11-03] MEDS: Potassium Chloride LIQUID* 20 MEQ PACKET PO SCH (08:48)
[2016-11-03] MEDS: Losartan TAB* 25 MG PO SCH (08:48)
[2016-11-03] MEDS: glipiZIDE TAB.XL* 2.5 MG PO SCH (08:49)
[2016-11-03] MEDS: Insulin GLARGINE(*) 1 UNITS UNIT SUBCUT SCH (08:50)
[2016-11-03] MEDS: Analgesic BALM* 114 GM TOPICAL SCH ×2 (08:51→20:28)
[2016-11-03] MEDS: Bacitracin OINTMENT* 0.5% 0.5 oz TUBE TOPICAL SCH (08:51)
[2016-11-03] MEDS: Mometasone/Formoter 200/5 MDI INH SCH ×2 (09:27→22:02)
[2016-11-03] MEDS: Atorvastatin* 80 MG TAB PO SCH (17:13)
[2016-11-03] MEDS: Montelukast Sodium TAB* 10 MG PO SCH (20:17)
[2016-11-04] MEDS ORDERED: Albuterol HFA INHALER* 8 gm MDI INH PRN (06:29)
[2016-11-04 07:29] LABS: Hematocrit 25 % (42-52); Hemoglobin 8.3 g/dl (14.0-18.0); Mean Corpuscular HGB Conc 33 g/dl (31-36); Mean Corpuscular Hemoglobin 29 pg (27-31); Mean Corpuscular Volume 86 fL (80-94); Mean Platelet Volume 8 um3 (7.4-10.4); Red Blood Count 2.89 10^6/ul (4.0-5.4); Red Cell Distribution Width 16 % (10.5-15); White Blood Count 5.2 10^3/ul (3.5-10.8)
[2016-11-04] MEDS: Insulin GLARGINE(*) 1 UNITS UNIT SUBCUT SCH (08:51)
[2016-11-04] MEDS: Insulin LISPRO* 1 UNITS UNIT SUBCUT SCH ×4 (08:51→20:53)
[2016-11-04] MEDS: Losartan TAB* 25 MG PO SCH (08:52)
[2016-11-04] MEDS: Aspirin EC Low Dose* 81 MG TAB.EC PO SCH (08:52)
[2016-11-04] MEDS: glipiZIDE TAB.XL* 2.5 MG PO SCH (08:52)
[2016-11-04] MEDS: Potassium Chloride LIQUID* 20 MEQ PACKET PO SCH (08:52)
[2016-11-04] MEDS: Metoprolol Tartrate TAB* 25 MG PO SCH ×2 (08:52→17:07)
[2016-11-04] MEDS: Clopidogrel TAB* 75 MG PO SCH ×3 (08:52→08:54)
[2016-11-04] MEDS: Hydrochlorothiazide TAB* 25 MG PO SCH (08:52)
[2016-11-04] MEDS: Analgesic BALM* 114 GM TOPICAL SCH ×2 (08:53→20:55)
[2016-11-04] MEDS: Lansoprazole SOLUTAB* 30 MG PO SCH (08:54)
[2016-11-04] MEDS: Bacitracin OINTMENT* 0.5% 0.5 oz TUBE TOPICAL SCH (08:54)
[2016-11-04] MEDS: Mometasone/Formoter 200/5 MDI INH SCH ×2 (09:40→20:55)
[2016-11-04] MEDS: Atorvastatin* 80 MG TAB PO SCH (17:07)
[2016-11-04] MEDS: Montelukast Sodium TAB* 10 MG PO SCH (20:53)
[2016-11-05 05:52] VITALS: BP 137/66
[2016-11-05] MEDS: Losartan TAB* 25 MG PO SCH (09:32)
[2016-11-05] MEDS: Aspirin EC Low Dose* 81 MG TAB.EC PO SCH (09:33)
[2016-11-05] MEDS: glipiZIDE TAB.XL* 2.5 MG PO SCH (09:33)
[2016-11-05] MEDS: Hydrochlorothiazide TAB* 25 MG PO SCH (09:33)
[2016-11-05] MEDS: Clopidogrel TAB* 75 MG PO SCH (09:33)
[2016-11-05] MEDS: Metoprolol Tartrate TAB* 25 MG PO SCH (09:34)
[2016-11-05] MEDS: Lansoprazole SOLUTAB* 30 MG PO SCH (09:34)
[2016-11-05] MEDS: Potassium Chloride LIQUID* 20 MEQ PACKET PO SCH (09:35)
[2016-11-05] MEDS: Insulin GLARGINE(*) 1 UNITS UNIT SUBCUT SCH (09:37)
[2016-11-05] MEDS: Insulin LISPRO* 1 UNITS UNIT SUBCUT SCH (09:38)
[2016-11-05] MEDS: Mometasone/Formoter 200/5 MDI INH SCH (09:40)
--- NOTE | 2016-11-05 21:49 | DS ---
CC: Dr. Blevins; Dr. Sorensen; Dr. Ramirez; Dr. Chan REHABILITATION DISCHARGE SUMMARY: DATE OF ADMISSION: 10/18/16 DATE OF DISCHARGE: 11/05/16 PRIMARY CARE PROVIDER: Dr. Blevins. NEUROLOGIST: Dr. Sorensen. GASTROENTEROLOGY: Dr. Ramirez, Dr. Chan. REASON FOR ADMISSION: Stroke with left-side hemiparesis, aphasia, and upper GI bleed. HISTORY OF PRESENT ILLNESS: This is an 86-year-old man with COPD who was admitted to the hospital on 10/11/16 for what was initially respiratory symptoms and concerns for sepsis and soon thereafter had a large melanotic stool. Please refer to the admission note and hospital records for full details of that admission. Briefly, as he started becoming more medically stable, it became clear he was having difficulty speaking and subsequent imaging showed a subacute right parietal ischemic infarct. Because of GI bleeding, he was taken off of aspirin and Plavix initially. He was on a prednisone taper. Upon his admission to [facility], he was restarted on aspirin with instructions to start his Plavix in 1 to 2 weeks. HOSPITAL COURSE: During his time on the [facility], he was noted to have some leukocytosis. This was evaluated by chest x-ray, urinalysis, and follow up with the hospitalist. It was felt this was secondary to prednisone, which was on taper. He also early in his course, had ongoing diarrhea, that was dark and appeared melanotic. Occult blood stools were negative as was C. diff. His blood counts actually remained stable and his bowel movements became normal. Just over a week ago around 10/29/16, he started having some issues with tongue thrusting. Neurology was called and felt this was tardive dyskinesia related to Haldol he received for agitation in the intensive care unit. He was not really aware of the tongue thrusting and it did not seem to bother him or his family. No other medications were started. In addition during this time, his VESIcare was discontinued in case of any anticholinergic side effects. He had ongoing urinary incontinence, which was even before his hospitalization, which VESIcare did not seem to help, so no other medications were started. He did continue to wear Depends. He developed a cough and sore throat on 10/31/16. Once again chest x-ray did not show any infiltrate. This is similar to when he would use inhalers and he receives some nebulizers and cough syrup. Lozenges seem to help his throat. This improved over time. He was never febrile, and by this point, he was off of prednisone and his white count had come back down to normal. For diabetes management, Lantus was gradually increased. Even when he came off the prednisone, he still continued to require insulin. It was recommended by the hospitalist that he continue using his glipizide XL 2.5 mg daily and Lantus. This will be followed up as an outpatient. His was instructed in how to give injections and she will do fingersticks twice a day, keeping a record that she can give to Dr. Blevins. On 11/01/16, his Plavix was restarted, which he was previously on for his cardiac stents. Followup CBC on 11/04/16 was stable and once again, he has not had any melanotic stools now in about 2 weeks. He participated well with physical therapy. At the time of discharge, he is independent with bed mobility, transfers with or without an assistive device. He can ambulate for 150 feet with or without a rolling walker. He can do 5 steps using one rail. He has a home exercise program with an illustrated copy. He also participated well with occupational therapy and at the time of discharge, required some assistance for opening packages. He is independent for his sponge baths, but should be supervised for showers, using a seat as needed. He can dress with minimal assistance for socks and shoes, and requires set up for remaining tasks. He is independent with toileting and toilet transfers with the walker, but needs to watch for some dripping and wet spots. He requires assistance for medication, meals, and laundry and should return to any of these tasks gradually with supervision. His came in for family training, is able to assist him with these tasks. In addition, one of his daughters is a nurse, who will also be available for assistance and guidance. He participated well with speech therapy and initially when he was admitted, was on a honey-thick liquid and softened foods with extra sauces and gravies diet. He has been able to progress to thin liquids and regular textures. He also participated well with speech therapy in terms of his speech and cognition. He is able to communicate effectively at this point. Once again , we recommend assistance for medications due to some outstanding memory impairments. DISCHARGE CONDITION: Good. DISCHARGE DISPOSITION: Home with family support. DISCHARGE DIAGNOSES: 1. Stroke with left-sided hemiparesis. 2. Aphasia. 3. Upper GI bleed. 4. Coronary artery disease, status post stenting. 5. Diabetes mellitus type 2 with peripheral neuropathy. 6. Chronic obstructive pulmonary disease. 7. Hypertension. 8. Hyperlipidemia. 9. Chronic urinary incontinence with history of prostate cancer, status post surgery, TURP, and radiation. 10. Hard of hearing with hearing aids. 11. Tardive dyskinesia. 12. Upper respiratory infection. FOLLOWUP: 1. He is to follow up with Dr. Blevins in 1 to 2 weeks. 2. Follow up with Gastroenterology. He is already scheduled with Dr. Chan, it looks like, for colonoscopy in early December, but he should probably be seen by him prior to that. 3. A referral was sent to visiting nurse services for nursing, physical therapy , home health aide, and home care services. DISCHARGE MEDICATIONS: 1. Atorvastatin 80 mg daily. 2. Metoprolol 25 mg b.i.d. 3. Dulera 200/5 metered-dose inhaler 2 puffs b.i.d. 4. Montelukast 10 mg q.h.s. 5. Lansoprazole 30 mg daily. 6. Enteric-coated aspirin 81 mg daily. 7. Plavix 75 mg daily. 8. Glipizide XL 2.5 daily. 9. Hydrochlorothiazide 25 mg daily. 10. Glargine insulin 24 units q.a.m. 11. Losartan 50 mg daily. 12. Potassium chloride 20 mEq daily. 13. Acetaminophen 650 mg q.6 hours p.r.n. 14. Albuterol inhaler MDI 2 puffs q.4 hours p.r.n. shortness of breath. 15. Chloraseptic lozenges 1 p.o. q.6 hours p.r.n. 16. Docusate 100 mg b.i.d. p.r.n. 17. Robitussin DM 5 mL q.6 hours p.r.n. cough. 18. Nitroglycerin tab 0.4 mg sublingual q.5 minutes p.r.n. angina. 19. Senna 2 tablets p.o. q.h.s. p.r.n. [id number]/[facility] #: [id number] MARCELO
== END 2016-11-05 10:00 | disposition home or self-care (01) | DRG 57 ==
LOC: PMRU 12:40
PROVIDERS: ADMIT Physical Medicine & Rehabilitation; ATTEND Physical Medicine & Rehabilitation
PROC: F07Z5ZZ Bed Mobility Treatment (ICD-10-PCS; principal; 2016-10-18)
PROC: F07Z9ZZ Gait Training/Functional Ambulation Treatment (ICD-10-PCS; 2016-10-18)
PROC: F07Z8ZZ Transfer Training Treatment (ICD-10-PCS; 2016-10-18)
PROC: F08Z0ZZ Bathing/Showering Techniques Treatment (ICD-10-PCS; 2016-10-18)
PROC: F08Z1ZZ Dressing Techniques Treatment (ICD-10-PCS; 2016-10-18)
PROC: F08Z3ZZ Feeding/Eating Treatment (ICD-10-PCS; 2016-10-18)
PROC: F06Z3ZZ Aphasia Treatment (ICD-10-PCS; 2016-10-18)
PROC: F06ZDZZ Swallowing Dysfunction Treatment (ICD-10-PCS; 2016-10-18)
DX: I69.351 Hemiplegia and hemiparesis following cerebral infarction affecting right dominant side (principal); B37.0 Candidal stomatitis; I11.9 Hypertensive heart disease without heart failure; E11.42 Type 2 diabetes mellitus with diabetic polyneuropathy; J44.9 Chronic obstructive pulmonary disease, unspecified; D62 Acute posthemorrhagic anemia; I69.320 Aphasia following cerebral infarction; I25.10 Atherosclerotic heart disease of native coronary artery without angina pectoris; Z95.5 Presence of coronary angioplasty implant and graft; E78.5 Hyperlipidemia, unspecified; N39.498 Other specified urinary incontinence; G24.01 Drug induced subacute dyskinesia; T43.4X5A Adverse effect of butyrophenone and thiothixene neuroleptics, initial encounter; Y92.239 Unspecified place in hospital as the place of occurrence of the external cause; J06.9 Acute upper respiratory infection, unspecified; I69.391 Dysphagia following cerebral infarction; R13.10 Dysphagia, unspecified; H91.93 Unspecified hearing loss, bilateral; Z85.46 Personal history of malignant neoplasm of prostate; Z79.1 Long term (current) use of non-steroidal anti-inflammatories (NSAID); Z79.82 Long term (current) use of aspirin; Z79.4 Long term (current) use of insulin; Z79.52 Long term (current) use of systemic steroids; Z79.899 Other long term (current) drug therapy; Z88.8 Allergy status to other drugs, medicaments and biological substances; Z91.013 Allergy to seafood; D72.828 Other elevated white blood cell count; Z87.891 Personal history of nicotine dependence; X58.XXXA Exposure to other specified factors, initial encounter
CPT/HCPCS: 36415; 71020; 80048; 80053; 81003; 81015; 82272; 85014; 85018; 85025; 87493; 94640; 94760; A9270-GY; J7512

== ENCOUNTER 2017-03-27 14:49 | Observation (INO) | payer MEDICARE ==
[2017-03-27] MEDS ORDERED: Aspirin Low Dose CHEW TAB* 81 MG PO ONE (16:03)
--- NOTE | 2017-03-27 16:28 | RAD ---
Indication: Chest pain, pneumonia. Single frontal view of the chest performed at 1605 hours was reviewed. Comparison is made with previous exam dated November 01, 2016. No mediastinal shift is noted. Heart is of normal size and configuration. Lung hdz appear clear. IMPRESSION: NO ACTIVE CARDIOPULMONARY DISEASE IS NOTED.
[2017-03-27 16:33] LABS: Troponin I 0.05 ng/mL (<0.04)
[2017-03-27 16:40] LABS: Hematocrit 30 % (42-52); Hemoglobin 9.2 g/dl (14.0-18.0); Mean Corpuscular HGB Conc 31 g/dl (31-36); Mean Corpuscular Hemoglobin 20 pg (27-31); Mean Corpuscular Volume 65 fL (80-94); Mean Platelet Volume 9 um3 (7.4-10.4); Red Blood Count 4.58 10^6/ul (4.0-5.4); Red Cell Distribution Width 20 % (10.5-15); White Blood Count 6.1 10^3/ul (3.5-10.8)
[2017-03-27 16:43] LABS: Albumin 3.7 g/dL (3.2-5.2); BUN/Creatinine Ratio 17.2 (8-20); Calcium 9.3 mg/dL (8.6-10.3); EGFR African American 68.9 (>60); EGFR Non-African American 53.5 (>60); Globulin 2.4 g/dL (2-4); Potassium 4.2 mmol/L (3.5-5.0); Total Bilirubin 0.6 mg/dL (0.2-1.0); Total Protein 6.1 g/dL (6.4-8.9)
[2017-03-27 16:44] LABS: Add Diff/Slide Review? Slide Review Added; Comments Flag Yes
[2017-03-27 17:21] LABS: Microcytosis 2+; Polychromasia 1+
[2017-03-27] MEDS ORDERED: Nitroglycerin TAB 0.4 MG* 0.4 MG TAB SL PRN (17:24)
[2017-03-27] MEDS ORDERED: Albuterol HFA INHALER* 8 gm MDI INH PRN (17:24)
[2017-03-27] MEDS ORDERED: Dextrose 50% Syringe 50 ML* 25 GM/50 ML SYRINGE IV PUSH PRN (17:45)
[2017-03-27] MEDS ORDERED: Insulin GLARGINE(*) 1 UNITS UNIT SUBCUT SCH (18:00)
[2017-03-27] MEDS: Metoprolol Tartrate TAB* 25 MG PO SCH (18:23)
--- NOTE | 2017-03-27 18:35 | ED ---
Sheyla Cadet Edward, scribed for Silverio Salomon MD on 03/27/17 at 1631 . HPI Chest Pain - HPI Summary HPI Summary: 86 y/o male presents to ED c/o CP. CP started at around 14:00 today, was rated at a 7-8/10 initially and is characterized as chest pressure. Patient has no CP now. Pain is located in the mid-sternum with no radiation. Patient took 3 tablets of NTG when the CP started, which slightly alleviated his pain. Associated sx: mild SOB, chronic, intermittent bilateral ankle edema. Denies nausea, diaphoresis, ABD pain, problems urinating and defecating. PMHx multiple OH's, 5 stents (last stent in 2013), HTN, HLD, DM and prostate cancer. SHx appy. - History of Current Complaint Chief Complaint: EDChestPainROMI Time Seen by Provider: 03/27/17 16:14 Hx Obtained From: Patient Onset/Duration: Started Hours Ago - 14:00 today, Resolved Timing: Constant Initial Severity: Severe Pain Intensity: 10 Pain Scale Used: 0-10 Numeric Chest Pain Location: Mid Sternal Chest Pain Radiates: No Character: Pressure/Squeezing Alleviating Factor(s): NTG 123 Associated Signs and Symptoms: Positive: Chest Pain, Shortness of Breath, Edema - Chronic, intermittent bilateral ankle edema, Other: - No problems urinating or defecating. Negative: Diaphoresis, Nausea, Abdominal Pain - Additional Pertinent History Primary Care Physician: [id number] - Allergy/Home Medications Allergies/Adverse Reactions: Allergies Allergy/AdvReac Type Severity Reaction Status Date / Time Haloperidol Allergy Severe See Comment Verified 03/27/17 15:48 Captopril Allergy Coughing Verified 03/27/17 15:48 Flavocoxid [From Limbrel] Allergy Swelling Verified 03/27/17 15:48 Of Face,Lips,& Throat Pregabalin [From Lyrica] Allergy See Comment Verified 03/27/17 15:48 Tunafish Allergy Swelling Uncoded 03/27/17 15:48 Of Face,Lips,& Throat PMH/Surg Hx/FS Hx/Imm Hx Previously Healthy: No Endocrine/Hematology History: Reports: Hx Anticoagulant Therapy, Hx Blood Transfusions, Hx Diabetes, Hx Unexplained Bleeding Denies: Hx Anemia Cardiovascular History: Reports: Hx Angina, Hx Coronary Artery Disease, Hx Hypercholesterolemia, Hx Hypertension, Hx Myocardial Infarction, 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 Denies: Hx Congestive Heart Failure Respiratory History: Reports: Hx Asthma, Hx Chronic Obstructive Pulmonary Disease (COPD), Hx Pneumonia, Other Respiratory Problems/Disorders - PNEUMONIA History: Reports: Other Problems/Disorders - Prostate CA Denies: Hx Renal Disease Musculoskeletal History: Reports: Hx Arthritis - HIPS/ HANDS Sensory History: Reports: Hx Cataracts, Hx Contacts or Glasses, Hx Deafness, Hx Hearing Aid, Hx Hearing Problem, Other Sensory Impairments Denies: Hx Glaucoma, Hx Legally Blind, Hx Macular Degeneration, Hx Vision Problem Opthamlomology History: Reports: Hx Cataracts, Hx Contacts or Glasses, Other Sensory Impairments Denies: Hx Glaucoma, Hx Legally Blind, Hx Macular Degeneration, Hx Vision Problem - Cancer History Cancer Type, Location and Year: prostate Hx Chemotherapy: Yes - 2006 Hx Radiation Therapy: Yes Hx Palliative Cancer Treatment: No - Surgical History Surgery Procedure, Year, and Place: YOUNG CHILD TONSILLECTOMY [facility]. 1971 RUPTURED APPENDIX [facility]. 2003 2 CARDIAC STENTS STRONG. 2004 PROSTATE [facility]. 2007 BILATERAL TUBES IN EARS [facility] Hx Anesthesia Reactions: No Infectious Disease History: Yes Infectious Disease History: Denies: Hx Clostridium Difficile, Hx Hepatitis, Hx Human Immunodeficiency Virus (HIV), Hx of Known/Suspected MRSA, Hx Shingles, Hx Tuberculosis, Hx Known/ Suspected VRE, Hx Known/Suspected VRSA, Traveled Outside the [place] in Last 30 Days - Family History Known Family History: Positive: None - reviewed & noncontributory, Cardiac Disease - Social History Alcohol Use: Unknown Substance Use Type: Reports: None Hx Tobacco Use: Yes Smoking Status (MU): Former Smoker Type: Cigarettes Have You Smoked in the Last Year: No Review of Systems Constitutional: Negative Negative: Skin Diaphoresis Eyes: Negative ENT: Negative Positive: Chest Pain Positive: Shortness Of Breath Gastrointestinal: Negative - No problems defecating Genitourinary: Negative - No problems urinating Positive: Edema - Chronic, intermittent bilateral ankle edema Skin: Negative Neurological: Negative Psychological: Normal All Other Systems Reviewed And Are Negative: Yes Physical Exam Triage Information Reviewed: Yes Vital Signs On Initial Exam: Initial Vitals Temp Pulse Resp BP Pulse Ox 97.2 F 77 20 143/58 97 03/27/17 14:57 03/27/17 14:57 03/27/17 14:57 03/27/17 14:57 03/27/17 14:57 Vital Signs Reviewed: Yes Appearance: Positive: Well-Appearing, No Pain Distress, Well-Nourished Skin: Positive: Warm, Skin Color Reflects Adequate Perfusion, Dry Head/Face: Positive: Normal Head/Face Inspection Eyes: Positive: Normal, EOMI, SARI ENT: Positive: Normal ENT inspection Neck: Positive: Supple, Nontender Respiratory/Lung Sounds: Positive: Clear to Auscultation, Breath Sounds Present Cardiovascular: Positive: RRR Abdomen Description: Positive: Nontender, Soft Bowel Sounds: Positive: Present Musculoskeletal: Positive: Normal, Strength/ROM Intact Neurological: Positive: Normal, Sensory/Motor Intact, Alert, Oriented to Person Place, Time Psychiatric: Positive: Normal, Affect/Mood Appropriate - Estella Coma Scale Coma Scale Total: 15 Diagnostics - Vital Signs Vital Signs Temp Pulse Resp BP Pulse Ox 03/27/17 16:08 97 03/27/17 15:44 65 13 96 03/27/17 15:43 137/61 03/27/17 15:40 98.0 F 66 18 137/61 96 03/27/17 14:57 97.2 F 77 20 143/58 97 - Laboratory Lab Results: Lab Results 03/27/17 03/27/17 03/27/17 Range/Units 16:04 16:04 16:04 WBC 6.1 (3.5-10.8) 10^3/ul RBC 4.58 (4.0-5.4) 10^6/ul Hgb 9.2 L (14.0-18.0) g/dl Hct 30 L (42-52) % MCV 65 L (80-94) fL MCH 20 L (27-31) pg MCHC 31 (31-36) g/dl RDW 20 H (10.5-15) % Plt Count 202 (150-450) 10^3/ul MPV 9 (7.4-10.4) um3 Neut % (Auto) 74.5 (38-83) % Lymph % (Auto) 15.0 L (25-47) % Stoddard % (Auto) 8.5 (1-9) % Eos % (Auto) 1.6 (0-6) % Baso % (Auto) 0.4 (0-2) % Absolute Neuts (auto) 4.5 (1.5-7.7) 10^3/ul Absolute Lymphs (auto) 0.9 L (1.0-4.8) 10^3/ul Absolute Monos (auto) 0.5 (0-0.8) 10^3/ul Absolute Eos (auto) 0.1 (0-0.6) 10^3/ul Absolute Basos (auto) 0 (0-0.2) 10^3/ul Absolute Nucleated RBC 0 10^3/ul Nucleated RBC % 0 Normal RBC Morphology Not Reportable Polychromasia 1+ Microcytosis 2+ Elliptocytes 1+ Acanthocytes (Spur) 2+ Sodium 133 (133-145) mmol/L Potassium 4.2 (3.5-5.0) mmol/L Chloride 103 (101-111) mmol/L Carbon Dioxide 22 (22-32) mmol/L Anion Gap 8 (2-11) mmol/L BUN 22 (6-24) mg/dL Creatinine 1.28 H (0.67-1.17) mg/dL Est GFR ( Amer) 68.9 (>60) Est GFR (Non-Af Amer) 53.5 (>60) BUN/Creatinine Ratio 17.2 (8-20) Glucose 181 H (70-100) mg/dL Lactic Acid 1.8 (0.5-2.0) mmol/L Calcium 9.3 (8.6-10.3) mg/dL Total Bilirubin 0.60 (0.2-1.0) mg/dL AST 13 (13-39) U/L ALT 11 (7-52) U/L Alkaline Phosphatase 55 (34-104) U/L Troponin I 0.05 H* (<0.04) ng/mL B-Natriuretic Peptide ( - 100) pg/mL Total Protein 6.1 L (6.4-8.9) g/dL Albumin 3.7 (3.2-5.2) g/dL Globulin 2.4 (2-4) g/dL Albumin/Globulin Ratio 1.5 (1-3) 03/27/17 Range/Units 16:04 WBC (3.5-10.8) 10^3/ul RBC (4.0-5.4) 10^6/ul Hgb (14.0-18.0) g/dl Hct (42-52) % MCV (80-94) fL MCH (27-31) pg MCHC (31-36) g/dl RDW (10.5-15) % Plt Count (150-450) 10^3/ul MPV (7.4-10.4) um3 Neut % (Auto) (38-83) % Lymph % (Auto) (25-47) % Stoddard % (Auto) (1-9) % Eos % (Auto) (0-6) % Baso % (Auto) (0-2) % Absolute Neuts (auto) (1.5-7.7) 10^3/ul Absolute Lymphs (auto) (1.0-4.8) 10^3/ul Absolute Monos (auto) (0-0.8) 10^3/ul Absolute Eos (auto) (0-0.6) 10^3/ul Absolute Basos (auto) (0-0.2) 10^3/ul Absolute Nucleated RBC 10^3/ul Nucleated RBC % Normal RBC Morphology Polychromasia Microcytosis Elliptocytes Acanthocytes (Spur) Sodium (133-145) mmol/L Potassium (3.5-5.0) mmol/L Chloride (101-111) mmol/L Carbon Dioxide (22-32) mmol/L Anion Gap (2-11) mmol/L BUN (6-24) mg/dL Creatinine (0.67-1.17) mg/dL Est GFR ( Amer) (>60) Est GFR (Non-Af Amer) (>60) BUN/Creatinine Ratio (8-20) Glucose (70-100) mg/dL Lactic Acid (0.5-2.0) mmol/L Calcium (8.6-10.3) mg/dL Total Bilirubin (0.2-1.0) mg/dL AST (13-39) U/L ALT (7-52) U/L Alkaline Phosphatase (34-104) U/L Troponin I (<0.04) ng/mL B-Natriuretic Peptide 49 ( - 100) pg/mL Total Protein (6.4-8.9) g/dL Albumin (3.2-5.2) g/dL Globulin (2-4) g/dL Albumin/Globulin Ratio (1-3) Result Diagrams: 03/27/17 16:04 03/27/17 16:04 Lab Statement: Any lab studies that have been ordered have been reviewed, and results considered in the medical decision making process. - Radiology CXR Xray Interpretation: No Acute Changes - No active cardiopulmonary disease is noted. Radiology Interpretation Completed By: Radiologist - EKG 1 EKG Interpretation: 15:03 - NSR @ 65 bpm. RBBB. Flipped T's in 3, aVF and V1. No ectopy Chest Pain Course/Dx - Course Course Of Treatment: NO CRITICAL CARE TIME. ADMIT HOSPITALIST STABLE. - Diagnoses Provider Diagnoses: Chest pain Discharge - Discharge Plan Condition: Stable Disposition: ADMITTED TO [facility] The documentation as recorded by the Sheyla herman Edward accurately reflects the service I personally performed and the decisions made by , Silverio Salomon MD.
[2017-03-27] MEDS: Mometasone/Formoter 200/5 MDI INH SCH (20:23)
[2017-03-27] MEDS ORDERED: Montelukast Sodium TAB* 10 MG PO SCH (21:00)
[2017-03-27] MEDS: Insulin LISPRO* 1 UNITS UNIT SUBCUT SCH (22:14)
--- NOTE | 2017-03-28 01:18 | HP ---
CC: Dr. Blevins * HISTORY AND PHYSICAL: DATE OF ADMISSION: 03/27/17 TIME OF EVALUATION: 4:45 p.m. CHIEF COMPLAINT: Chest pain. HISTORY OF PRESENT ILLNESS: Mr. Simmons is an 86-year-old male known to me from prior admissions with a past medical history of coronary artery disease, status post stent, type 2 diabetes, hypertension, hyperlipidemia, COPD, prostate cancer , admission in October with severe sepsis secondary to acute bronchitis, acute kidney injury and upper GI bleed secondary to gastric ulcers, CVA, who presents to the emergency room with complaints of chest pain. The patient states he was in his usual state of health until he finished eating lunch around 2 and he started to have retrosternal chest pain. He describes the pain as pressure-like 10/10 intensity with no radiation associated with myodystonia. He denies diaphoresis or palpitations. He took 3 nitro and as the pain was still present his family decided to bring him to the emergency room , but by the time he arrived in the emergency room the pain was resolved and has not recurred so far. At the time of this interview, he states that he is feeling well and he is sad that he will miss his grandson's graduation [id number]. PAST MEDICAL HISTORY: 1. Coronary artery disease. His last cath was done in September 2014 and at that time he had stents placed, one stent to the circumflex and two stents to the RCA. 2. Type 2 diabetes. 3. Hypertension. 4. Hyperlipidemia. 5. COPD. 6. Prostate CA. 7. Chronic kidney disease, stage 3. 8. History of upper GI bleeding in October 2016 secondary to gastric ulcers. 9. Right parietal CVA. 10. 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 MEDICATIONS: 1. Acetaminophen 500 mg p.o. q.6 hours p.r.n. pain. 2. Albuterol HFA 2 puffs inhaled q.4 hours p.r.n. for shortness of breath or wheezing. 3. Aspirin 81 mg p.o. daily. 4. Atorvastatin 80 mg p.o. at 1700 hours. 5. Calcium carbonate 1000 mg p.o. daily. 6. Vitamin 1000 units p.o. daily. 7. Clopidogrel 75 mg p.o. daily. 8. Glipizide XL 2.5 mg p.o. daily. 9. Hydrochlorothiazide 25 mg p.o. daily. 10. Lantus 24 units subcutaneously q.p.m. 11. Lansoprazole 30 mg p.o. daily. 12. Losartan 50 mg p.o. daily. 13. Metoprolol tartrate 25 mg p.o. b.i.d. with meals. 14. Dulera 200/5 two puffs inhaled b.i.d. 15. Montelukast 10 mg p.o. at bedtime. 16. Nitroglycerin 0.4 mg sublingual q.5 minutes p.r.n. chest pain maximum 3 doses. 17. Potassium chloride 10 mEq p.o. daily. 18. VESIcare 10 mg p.o. daily. ALLERGIES: With HALDOL, the patient experienced tardive dyskinesia. With CAPTOPRIL the patient had coughing. With LIMBREL, the patient had swelling of the face, lips, and throat. With LYRICA, the patient had tongue burning and the patient is also allergic to TUNA FISH. FAMILY HISTORY: The patient's father had a history of coronary artery disease. His mother had a history of diabetes. SOCIAL HISTORY: The patient smoked in his 20s, but has quit. He drinks alcohol occasionally. Surrogate decision maker is his , Jelena Simmons, phone number is [phone]. REVIEW OF SYSTEMS: A 14-point review of systems was performed and all the pertinent negative and positive findings are in the HPI. PHYSICAL EXAMINATION GENERAL: The patient is a pleasant elderly male, lying in a stretcher surrounded by family members, in no acute distress and good spirits. VITAL SIGNS: Temperature 98.0, heart rate is 63, respiratory rate is 19, oxygen saturation is 96% on room air, blood pressure is 136/55. HEENT: Pupils are equal. Moist mucous membranes. He is hard of hearing. CVS: Normal S1 and S2. Regular rate and rhythm. CHEST: Breath sounds present bilaterally with no added sounds. ABDOMEN: Soft, nondistended. Bowel sounds are present. EXTREMITIES: No edema. NEURO: He is alert and oriented x3. Able to move all 4 extremities. LABORATORY IMAGING DATA: The patient had a CBC that showed WBC of 6.1, hemoglobin of 9.2, hematocrit of 30, MCV of 65, MCH of 20, platelets of 202 with 74% neutrophils. Chemistry showed a sodium of 133, potassium 4.2, chloride 103, bicarb 22, BUN 22, creatinine 1.28, glucose 181, calcium 9.3. LFTs are normal. First troponin is 0.05. Chest x-ray showed no active cardiopulmonary disease. EKG done March 27 at 1503 hours showed sinus rhythm with right bundle-branch block. No acute ischemic changes. No significant change when compared to his prior EKG from October 2016. ASSESSMENT AND PLAN: Mr. Simmons is an 86-year-old male with a past medical history of coronary artery disease, status post stents to circumflex and RCA, type 2 diabetes, hypertension, hyperlipidemia, chronic kidney disease, chronic obstructive pulmonary disease, episode of GI bleeding in October 2016 secondary to gastric ulcer, cerebrovascular accident, who present to the emergency room with complaints of chest pain. 1. Chest pain, rule out acute coronary syndrome. The patient will be admitted for observation to telemetry and we are going to check serial troponins and EKGs. Though the patient's symptoms started after lunch, he does not feel they are GI in nature and he has a significant history of coronary artery disease. We are going to continue aspirin, Plavix, metoprolol, nitroglycerin as needed. I am going to check an echocardiogram. His initial troponin 0.05, but he does have a history of chronic kidney disease. We are going to check serial troponins and serial EKGs. At this point, he is asymptomatic and I believe anticoagulation with Lovenox is not indicated not only because he is symptomatic , but due to his history of an upper GI bleed. Of course, if his troponins continue to trend up or if he becomes symptomatic again, this will be considered , but at this point I am just going to continue aspirin and Plavix. 2. Type 2 diabetes. We are going to continue Lantus and monitor his fingerstick and cover with lispro sliding scale. 3. Hypertension. We will continue metoprolol and hydrochlorothiazide. 4. Hyperlipidemia. We will continue statin. 5. COPD is stable. We will continue inhaled steroids and bronchodilators. 6. Macrocytic anemia. The patient most likely has an iron deficiency anemia. I am going to check a workup, but he does not appear to have an active GI bleed at this time. 7. DVT prophylaxis: The patient has scored 4 on the DVT Prophylaxis Risk Assessment Guide. He will have SCDs for now. 8. Code status was discussed with the patient and family. He wishes to be a full code. TIME SPENT: Approximately 70 minutes was spent with the patient interview, medical records review, physical examination to complete this admission, more than half of this time was spent [id number] with the patient in coordination of care. [id number] #: [id number] [id number]
[2017-03-28 03:25] VITALS: BP 145/56
[2017-03-28 06:16] LABS: Hematocrit 29 % (42-52); Hemoglobin 8.9 g/dl (14.0-18.0); Mean Corpuscular HGB Conc 31 g/dl (31-36); Mean Corpuscular Hemoglobin 20 pg (27-31); Mean Platelet Volume 8 um3 (7.4-10.4); Red Blood Count 4.53 10^6/ul (4.0-5.4); Red Cell Distribution Width 20 % (10.5-15); White Blood Count 6.7 10^3/ul (3.5-10.8)
[2017-03-28 06:17] LABS: Comments Flag Yes; Mean Corpuscular Volume 64 fL (80-94)
[2017-03-28 06:35] LABS: Anion Gap 9 mmol/L (2-11); BUN/Creatinine Ratio 17.9 (8-20); Blood Urea Nitrogen 21 mg/dL (6-24); CO2 Carbon Dioxide 23 mmol/L (22-32); Calcium 9.1 mg/dL (8.6-10.3); Chloride 104 mmol/L (101-111); EGFR African American 76.4 (>60); EGFR Non-African American 59.4 (>60); Glucose 85 mg/dL (70-100); Potassium 3.9 mmol/L (3.5-5.0); Sodium 136 mmol/L (133-145)
[2017-03-28 06:36] LABS: Troponin I 0.06 ng/mL (<0.04)
[2017-03-28 06:39] LABS: Iron 24 ug/dL (50-212); Total Iron Binding Capacity 473 mcg/dL (250-450); Transferrin 338 mg/dL (203-362)
[2017-03-28 07:01] LABS: Ferritin < 10.0 ng/mL (24-336)
[2017-03-28 07:05] LABS: Folate > 20.00 ng/mL (>3.99)
[2017-03-28 07:06] LABS: Vitamin B12 230 pg/mL (180-914)
[2017-03-28] MEDS ORDERED: CMCS: Pantoprazole TAB (NF) 40 MG TAB PO SCH (07:30)
[2017-03-28] MEDS ORDERED: Insulin LISPRO* 1 UNITS UNIT SUBCUT SCH (07:30)
[2017-03-28] MEDS: Mometasone/Formoter 200/5 MDI INH SCH (07:53)
[2017-03-28] MEDS: Insulin LISPRO* 1 UNITS UNIT SUBCUT SCH (08:58)
[2017-03-28] MEDS ORDERED: Clopidogrel TAB* 75 MG PO SCH (09:00)
[2017-03-28] MEDS ORDERED: Hydrochlorothiazide TAB* 25 MG PO SCH (09:00)
[2017-03-28] MEDS ORDERED: Aspirin EC Low Dose* 81 MG TAB.EC PO SCH (09:00)
[2017-03-28] MEDS ORDERED: Losartan TAB* 25 MG PO SCH (09:00)
[2017-03-28] MEDS ORDERED: Calcium Carbonate CHEW TAB* 500 MG (TUMS) PO SCH (09:00)
[2017-03-28] MEDS ORDERED: Cholecalciferol TAB* 1000 UNITS PO SCH (09:00)
[2017-03-28] MEDS ORDERED: Potassium Chloride LIQUID* 20 MEQ PACKET PO SCH (09:00)
--- NOTE | 2017-03-28 09:02 | ECHO ---
Patient: DALE [facility] Rec#: [id number] : 1930 Date: 03/28/2017 Age: 86y Height: 175.26 cm / 69.0 in Weight: 84.82 kg / 186.9 lbs Sex: M BSA: 2.01 Room#: [facility] Admit Date#: 03/27/2017 Type: Inpatient Referring: Reina Resendez MD Reading: Juan Rey MD Driller And Broacher: Kandy Small RDCS CC: Ed Blevins MD Transthoracic Echocardiogram Indication: Chest pain BP: 145/56 HR: 65 Rhythm: NSR with PVCs Indications Chest Pain Findings History: CAD, PCI 09/18 stent x3, DMII, HTN, HLD, COPD, CKD III, CVA. Technical Comments: The study quality is fair. The study is technically limited due to the patient's history of COPD. Completed at 0850. Left Ventricle: The left ventricular chamber size is normal. Moderate concentric left ventricular hypertrophy is observed. There is a prominent septal knuckle. Global left ventricular wall motion and contractility are within normal limits. There is normal left ventricular systolic function. The estimated ejection fraction is 60-65%. Abnormal left ventricular diastolic filling is observed, consistent with impaired relaxation. Left Atrium: The left atrium is moderately dilated. Right Ventricle: The right ventricular cavity size is normal. The right ventricular global systolic function is normal. Right Atrium: The right atrium is mildly dilated. Aortic Valve: The aortic valve is trileaflet. The aortic valve leaflets are mildly thickened. There is trace to mild aortic regurgitation. There is no evidence of aortic stenosis. Mitral Valve: The mitral valve leaflets are mildly thickened. There is prolapse of the posterior leaflet of the mitral valve. There is mild mitral regurgitation. There is no evidence of mitral stenosis. Tricuspid Valve: The tricuspid valve leaflets are normal. There is trace to mild tricuspid regurgitation. No pulmonary hypertension is noted. Pulmonic Valve: The pulmonic valve appears normal. There is a trace pulmonic regurgitation. There is no pulmonic stenosis. Pericardium: There is no significant pericardial effusion. Aorta: There is mild dilatation of the ascending aorta. There is no dilatation of the aortic arch. There is mild dilatation of the aortic root. Pulmonary Artery: The main pulmonary artery is not well visualized. Venous: The inferior vena cava appears normal in size. There is a greater than 50% respiratory change in the inferior vena cava dimension. Conclusions There is normal left ventricular systolic function. The estimated ejection fraction is 60-65%. Global left ventricular wall motion and contractility are within normal limits. The left ventricular chamber size is normal. Moderate concentric left ventricular hypertrophy is observed. Abnormal left ventricular diastolic filling is observed, consistent with impaired relaxation. The left atrium is moderately dilated. The right atrium is mildly dilated. Mild posterior leaflet mitral valve prolapse with mild mitral regurgitation. There is mild dilatation of the ascending aorta. There is mild dilatation of the aortic root. Since the prior echocardiogram completed 10/17/16, there appears to be little change. Measurements Name Value Normal Range RVIDd (AP) 2D 2.8 cm (0.9 - 2.6) RAd ISD 4CH 5.2 cm (3.4 - 4.9) RA (A4C)W 4.4 cm (2.9 - 4.6) IVSd (2D) 1.5 cm (0.6 - 1) LVPWd (2D) 1.6 cm (0.6 - 1) LVIDd (2D) 4.82 cm (3.6 - 5.4) LVIDs (2D) 2.88 cm - LV FS (2D) 40 % (25 - 45) Aortic Annulus 2.2 cm (1.4 - 2.6) Ao root diameter (2D) 3.9 cm (2.1 - 3.5) Ascending Ao 3.6 cm (2.1 - 3.4) Aortic arch 3.1 cm (1.8 - 3.4) LA dimension (AP) 2D 4.5 cm (2.3 - 3.8) LAd ISD 4CH 5.6 cm (2.9 - 5.3) LA ISD 4CH W 5.3 cm (2.5 - 4.5) Name Value Normal Range LA ESV SP 4CH (A/L) 101 ml - LA ESV SP 2CH (A/L) 103 ml - LA ESV BP (A/L) 104 ml - LA ESV BP (A/L) index 51.67 ml/m2 - LA ESV SP 4CH (MOD) 92 ml - LA ESV SP 2CH (MOD) 97 ml - Name Value Normal Range MV E-wave Vmax 0.75 m/sec - MV deceleration time 199 msec - MV A-wave Vmax 0.96 m/sec - MV E:A ratio 0.78 ratio - LV septal e' Vmax 0.05 m/sec - LV lateral e' Vmax 0.07 m/sec - LV E:e' septal ratio 15 ratio - LV E:e' lateral ratio 10.71 ratio - Name Value Normal Range AV Vmax 1.6 m/sec - AV VTI 32.5 cm - AV peak gradient 10.29 mmHg - AV mean gradient 5 mmHg - LVOT diameter 2.24 cm - LVOT Vmax 1.15 m/sec - LVOT VTI 21.51 cm - LVOT peak gradient 5.28 mmHg - LVOT mean gradient 1.97 mmHg - AR PHT 676.58 msec - AR peak gradient 29.07 mmHg - CIARRA Vmax 0.6 m/sec - Name Value Normal Range MV Vmax 1.1 m/sec - MV VTI 36.63 cm - MV peak gradient 5.27 mmHg - MV mean gradient 1.8 mmHg - MV PHT 106.59 msec - MVA (PHT) 2.06 cm2 - MVA (continuity VTI) 2.32 cm2 - Name Value Normal Range TR Vmax 2.5 m/sec - TR peak gradient 25 mmHg - RAP 3 mmHg - RVSP 28 mmHg - IVC diameter 1.6 cm - Name Value Normal Range PV Vmax 0.79 m/sec - PV peak gradient 2.5 mmHg -
[2017-03-28] MEDS: Metoprolol Tartrate TAB* 25 MG PO SCH (09:14)
[2017-03-28] MEDS ORDERED: Atorvastatin* 80 MG TAB PO SCH (17:00)
--- NOTE | 2017-03-29 11:37 | DS ---
DISCHARGE SUMMARY: DATE OF ADMISSION: 03/27/17 DATE OF DISCHARGE: 03/28/17 DISCHARGE DIAGNOSES: 1. Chest pain, acute coronary syndrome ruled out. 2. Iron deficiency anemia. SECONDARY DIAGNOSES: 1. Coronary artery disease, status post stent. 2. Type 2 diabetes. 3. Hypertension. 4. Hyperlipidemia. 5. Chronic obstructive pulmonary disease. 6. Prostate cancer. 7. Chronic kidney disease, stage 3. 8. History of upper gastrointestinal bleeding in October 2016 secondary to gastric ulcers. 9. Right parietal cerebrovascular accident. 10. 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 MEDICATION LIST: 1. Acetaminophen 500 mg p.o. q. 6 hours p.r.n. pain. 2. Albuterol HFA 2 puffs inhaled q. 4 hours p.r.n. shortness of breath or wheezing. 3. Vitamin C 500 mg p.o. daily. 4. Aspirin 81 mg p.o. daily. 5. Atorvastatin 80 mg p.o. daily. 6. Calcium carbonate 1000 mg p.o. daily. 7. Cholecalciferol 1000 units p.o. daily. 8. Clopidogrel 75 mg p.o. daily. 9. Colace 100 mg p.o. b.i.d. 10. Glipizide XL 2.5 mg p.o. daily. 11. Hydrochlorothiazide 25 mg p.o. daily. 12. Lantus 24 units subcutaneously q. p.m. 13. Lansoprazole 30 mg p.o. daily. 14. Losartan 50 mg p.o. daily. 15. Metoprolol tartrate 25 mg p.o. b.i.d. with meals. 16. Dulera 200/5 two puffs inhaled b.i.d. 17. Montelukast 10 mg p.o. at bedtime. 18. Nitroglycerin 0.4 mg sublingual q. 5 minutes p.r.n. chest pain. 19. Potassium chloride 10 mEq p.o. daily. 20. VESIcare 10 mg p.o. daily. 21. Ferrous sulfate 325 mg p.o. daily for a week, then b.i.d. for a week, then t.i.d. HOSPITAL COURSE: Mr. Simmons is an 86-year-old male with a past medical history as stated above that presented to the emergency room on March 27 with a complaint of retrosternal pressure-like chest p ain associated with dyspnea. For more details about his presentation, I refer you to his history an d physical. The patient was admitted to telemetry floor, where he had no significant arrhythmias. EKG showed no significant new changes and serial troponins were 0.05, 0.06, and 0.06. The patient had no further episodes of chest pain while in the hospital. His chest pain had resolve d after taking nitroglycerin at home and by the time, he got to the emergency room, he was chest marifer n free. Transthoracic echocardiogram - showed a normal left ventricular systolic function with ejection frac tion of 60% to 65%. There is global left ventricular wall motion and contractility within normal li mits. There is no significant change when compared to his prior echocardiogram in October 2016. Since his admission in October after he had a complex clinical picture including CVA, sepsis, GI ble ed, the states that he has not been the same and had shown progressive cognitive decline. They are not interested in any aggressive measures at this time and the patient is anxious to return tana e. He was a little more stressed because he had family visiting from out of town for his grandson's graduation yesterday, but he says that he is okay that he missed it and tries to downplay the fact that he is upset about it. As I mentioned above, they are not interested in any aggressive or invas stormy measures, so I think at this point, since the patient is chest pain free, his echo showed no sig nificant wall motion abnormalities, I think it is reasonable to continue medical management, but the patient was advised that if he experiences more episodes of chest pain, [facility] and then we could talk again about pursuing a stress test. He will follow u p with Dr. Nicholas as outpatient and on that visit, the idea of pursuing a stress test could be di scussed again also, even if he continues to be asymptomatic. The patient was also found to have microcytic anemia and although his H and H is better than on his discharge in October, it is too low at 9/30 with significant microcytosis. He does not appear to birch ve any active bleeding at this time and anemia workup showed an iron level of 24 with a ferritin of less than 10. The patient was started on ferrous sulfate, but at the time of this dictation, his fo late and vitamin B12 levels are still pending. It should be followed as outpatient. Also if he can not tolerate oral iron or if he fails to improve his H and H, iron infusions with Hematology would b e an option as I think if his anemia continues to worse, this may precipitate further episodes of an wilmer. The patient is medically stable to be discharged home today to follow up with Dr. Blevins and Dr. Mag ramírez as outpatient. PHYSICAL EXAMINATION: Vital Signs: Temperature 97.2, heart rate 58, respiratory rate 20, oxygen sa turation 99% on room air, blood pressure 145/56. General: The patient is a pleasant, elderly male, sitting up in bed, in no acute distress. CVS: Normal S1 and S2. Regular rate and rhythm. Chest: Breath sounds present bilaterally with no added sounds. Abdomen: Soft. Bowel sounds present. Ext remities: No edema. Neuro: He is alert and oriented x3. Able to move all 4 extremities. DIET: Heart-healthy consistent carb diet. ACTIVITY: As tolerated. DISPOSITION: To home. STATUS WHILE IN THE HOSPITAL: Observation. Please keep in mind that this is a summarized version of this patient's hospital stay. If you need more information, please feel free to call me at [phone] or please obtain the full medical tiarra rds. TIME SPENT: Approximately 45 minutes was spent to complete this discharge. [id number]/[facility] #: [id number]
== END 2017-03-28 11:42 | disposition home or self-care (01) ==
LOC: ED 14:49 → MEDTELE 16:33 → ED 17:38
PROVIDERS: ADMIT Internal Medicine; ATTEND Internal Medicine
DX: R07.9 Chest pain, unspecified (principal); D50.9 Iron deficiency anemia, unspecified; I25.10 Atherosclerotic heart disease of native coronary artery without angina pectoris; I25.83 Coronary atherosclerosis due to lipid rich plaque; I12.9 Hypertensive chronic kidney disease with stage 1 through stage 4 chronic kidney disease, or unspecified chronic kidney disease; N18.3 Chronic kidney disease, stage 3 (moderate); Z95.5 Presence of coronary angioplasty implant and graft; E11.9 Type 2 diabetes mellitus without complications; Z79.4 Long term (current) use of insulin; J44.9 Chronic obstructive pulmonary disease, unspecified; I44.30 Unspecified atrioventricular block; I51.7 Cardiomegaly; R06.02 Shortness of breath; Z86.73 Personal history of transient ischemic attack (TIA), and cerebral infarction without residual deficits; Z79.82 Long term (current) use of aspirin; Z79.899 Other long term (current) drug therapy; Z88.8 Allergy status to other drugs, medicaments and biological substances; Z85.46 Personal history of malignant neoplasm of prostate; Z87.891 Personal history of nicotine dependence
CPT/HCPCS: 36415; 71010; 80048; 80053; 82607; 82728; 82746; 83540; 83550; 83605; 83880; 84484; 85025; 93005; 93306; 94640; 99283; A9270-GY; G0378

== ENCOUNTER 2017-11-04 13:56 | Emergency (ER) | payer MEDICARE ==
--- OUTSIDE RECORDS SUMMARY | 2017-11-04 14:09 | XMS REPORT ---
:1930 External Reference #:[id number] Author Organization [facility] Address [address] [address] Phone [phone] Care Team Providers Name Role Phone Ed Blevins MD Primary Care Physician Unavailable Payers Type Date Identification Payment Subscriber Numbers Provider Health Maintenance Effective: Policy Number: Medicare Blue [facility] ([facility]) 10/06/2012 [id number] o Group Number: [id number] [address] PayID: [id number] SINDI Andino [address] Health Maintenance Effective: Policy Number: Medicare Abelardo Chaves [employer] ([facility]) 10/06/2009 [id number] [facility] Expires: 10/06/2012 PayID: [id number] [address] [address] SINDI Andino [address] Problems Date Description Provider Status Onset: 12/20/2011 Electrocardiogram abnormal Stu Nicholas M.D. Active Onset: 12/20/2011 Coronary arteriosclerosis Stu Nicholas M.D. Active Onset: 12/20/2011 Benign essential hypertension Stu Nicholas M.D. Active Onset: 12/20/2011 Right bundle branch block Stu Nicholas M.D. Active Onset: 06/30/2013 Hyperlipidemia Stu Nicholas M.D. Active Onset: 03/07/2014 Dyspnea Hubert GuidryD. Active Family History Date Family Member(s) Problem(s) Comments : (age 69 Years) Father due to [place] : (age 64 Years) Mother due to Diabetes Social History Type Date Description Comments Marital Status Lives With Occupation Retired Cigarette Use Former Cigarette Smoker 1 Pack pt smoked for 7 to 8 Daily years-pt quit 48 years ago ETOH Use Denies alcohol use Smoking Patient is a former smoker Daily Caffeine Comsumes on average 1 cup of decaff coffee per day Exercise Type/Frequency Exercises regularly Allergies, Adverse Reactions, Alerts Date Description Reaction Status Severity Comments 02/25/2008 Captopril active cough 08/21/2012 TUNA active 03/07/2014 Lyrica active 03/07/2014 Limbrel active 11/27/2016 Haloperidol active Medications Medication Date Status Form Strength Qnty SIG Indications Ordering Provider Glipizide XL 04/21/ Active Tablets ER 2.5mg 90tabs 1 by mouth Felicity, 2013 24HR every day kevin Ta MD directed Tums 02/24/ Active Chewtabs 500mg two qd Qutaybeh 2007 Larisa Nicholas M.D. HCTZ 02/24/ Active 25mg. 90unit 1 PO qd Qutaybcresencio 2007 edin Nicholas M.D. Nitroquick 02/24/ Active Tablets 0.4mg 25tabs 1 S/L prn Qutaybeh 2007 Sub Chest S. Pain, Q 5 Maghaydah Min. Up To , M.D. 3 Tabs Plavix / Active Tablets 75mg 90tabs 1 po qd Unknown 0000 Singulair / Active Tablets 10mg 30tabs 1 po qd Unknown 0000 Aspirin / Active Tablets 81mg 1 by mouth Unknown 0000 every day Metoprolol / Active Tablets 50mg 1/2 tab by Unknown Tartrate 0000 mouth twice a day Vitamin D3 / Active Capsules 1000Iu 30caps 1 by mouth Unknown 0000 every day Albuterol / Active prn Unknown Sulfate 0000 Nebulizer Acetaminophen / Active Tablets ER 650mg 1 tab by Unknown ER 0000 mouth q6 hours as needed pain or fever Ventolin HFA / Active Aerosol 108(90Base 2 puffs by Unknown 0000 ) mcg/Act mouth four times a day as needed Lansoprazole / Active Capsules 30mg 1 by mouth Unknown 0000 DR every day Atorvastatin / Active Tablets 80mg 1 by mouth Unknown Calcium 0000 every day Lantus / Active Solution 100Unit/ML as Unknown 0000 directed 24 units at dinner Losartan / Active Tablets 50mg 1 by mouth Unknown Potassium 0000 every day Dulera / Active Aerosol 200-5mcg/A [address] twice a day Potassium / Active Tablets ER 20Meq 1 by mouth Unknown Chloride Lisa 0000 every day ER Vesicare / Active Tablets 10mg 1 daily Unknown 0000 Vitamin C / Active Capsules 500mg 1 by mouth Unknown 0000 every day ( started 03/28/17 [facility] [place] Ferrous Sulfate / Active Tablets 325mg 1 by mouth Unknown 0000 every day( started 03/28/17 [facility] [place] ) Irbesartan 07/11/ Hx Tablets 150mg 1 by mouth Felicity, 2013 - every day Ed Elizondo, 11/26/ as 2016 directed Simvastatin 06/20/ Hx Tablets 40mg 90tabs 1 po qd Felicity, 2013 - Ed Elizondo 11/26/ 2016 Qvar 03/07/ Hx Aerosol 1units 2 puffs Stu 2013 - twice a S. 11/11/ day Cristopher Haney M.D. Aspirin 11/18/ Hx Tablets 325mg 1 po qd Qutaybeh 2008 - S. Cristopher Cabrera M.D. Plavix 02/24/ Hx Tablets 75mg 90tabs 1 PO qd Qutaybeh 2007 - S. Cristopher 2007 Cirilo Vit D 02/24/ Hx one qd Qutaybeh 2007 - S. Cristopher Cabrera M.D. Aspirin 02/24/ Hx Tablets 325mg 1-2 PO qd Qutaybeh 2007 - S. Cristopher Torres M.D. Avapro 02/24/ Hx Tablets 150mg 90tabs 1 PO qd Qutaybeh 2007 - S. 09/14/ Cristopher Cabrera M.D. Lipitor 02/24/ Hx Tablets 40mg 90tabs 1/2tab qhs Qutaybeh 2007 - S. 05/13/ Cristopher Escudero M.D. Claritin 02/24/ Hx Tablets 10mg 30tabs PO qd prn Stu 2007 - S. 11/18/ Cristopher 2009 Cirilo Metoprolol 02/24/ Hx Tablets 50mg 30tabs one half Garytaboom 2007 - bid S. 03/02/ Cristopher Cabrera M.D. Advair Diskus 02/24/ Hx Misc 500/50 1 puff bid Garytaboom 2007 - S. 03/07/ Cristopher 2013 Cirilo Proventil HFA / Hx Aerosol 108(90Base 1month 2 puffs po Unknown 0000 - ) mcg/ac iqbal q 4 hours 09/14/ prn 2013 Ibuprofen / Hx Tablets 200mg 20tabs prn Unknown - 2013 Metformin HCL / Hx Tablets 500mg 60tabs 1 po bid Unknown - 2013 Limbrel / Hx Capsules 500mg 60caps 1 po bid Unknown 0000 - 2013 Ventolin HFA / Hx Aerosol 108(90Base 1units 2 puffs by Unknown 0000 - ) mcg/Act mouth four 10/22/ times a 2014 day as needed Vesicare / Hx Tablets 5mg 1 by mouth Unknown 0000 - every day 2016 Docusate Sodium / Hx Capsules 100mg 1 by mouth Unknown 0000 - twice a 11/26/ day as 2017 needed Robitussin DM / Hx Syrup 100-10mg/5 take 1 Unknown 0000 - ML teaspoons 11/26/ by mouth 2017 every 6 hours as needed for cough Potassium / Hx Solution 20Meq/50ML Daily Unknown Chloride 0000 - 2016 Vital Signs Date Vital Result Comment 10/13/2017 Height 70 inches 5'10" Weight 195.00 lb w/shoes Heart Rate 72 /min BP Systolic 168 mmHg LA reg cuff BP Diastolic 84 mmHg LA reg cuff O2 % BldC Oximetry 96 % room air BMI (Body Mass Index) 28.0 kg/m2 Ejection Fraction 55-60% Echo 05/13/11 04/15/2017 Height 70 inches 5'10" Weight 188.00 lb with shoes Heart Rate 66 /min BP Systolic Sitting 122 mmHg Rue reg cuff BP Diastolic Sitting 80 mmHg Rue reg cuff Respiratory Rate 16 /min BMI (Body Mass Index) 27.0 kg/m2 Ejection Fraction 60-65% date 03/28/17 ECHO 11/27/2016 Height 70 inches 5'10" Weight 177.50 lb w/shoes Heart Rate 84 /min BP Systolic Sitting 142 mmHg LA reg cuff BP Diastolic Sitting 76 mmHg LA reg cuff BMI (Body Mass Index) 25.5 kg/m2 Ejection Fraction > 65% Echo 10/17/16 02/16/2016 Height 70 inches 5'10" Weight 183.00 lb with shoes Heart Rate 78 /min BP Systolic 136 mmHg LA reg cuff BP Diastolic 74 mmHg LA reg cuff BMI (Body Mass Index) 26.3 kg/m2 Ejection Fraction 55%-60% echo 12/04/15 06/16/2015 Height 70 inches 5'10" Weight 185.00 lb w/shoes Heart Rate 56 /min BP Systolic Sitting 158 mmHg LA reg cuff BP Diastolic Sitting 78 mmHg LA reg cuff BMI (Body Mass Index) 26.5 kg/m2 Ejection Fraction 75 Nem 01/31/15 12/20/2014 Height 70 inches 5'10" Weight 171.00 lb w/ shoes Heart Rate 84 /min BP Systolic Sitting 146 mmHg LA, reg cuff BP Diastolic Sitting 88 mmHg LA, reg cuff BP Systolic Standing 138 mmHg LA BP Diastolic Standing 80 mmHg LA Respiratory Rate 18 /min BMI (Body Mass Index) 24.5 kg/m2 09/15/2014 Height 70 inches 5'10" Weight 179.75 lb with shoes Heart Rate 66 /min BP Systolic Sitting 108 mmHg La reg cuff BP Diastolic Sitting 78 mmHg La reg cuff Respiratory Rate 16 /min BMI (Body Mass Index) 25.8 kg/m2 03/07/2014 Height 70 inches 5'10" Weight 182.75 lb Heart Rate 68 /min BP Systolic Sitting 148 mmHg BP Diastolic Sitting 84 mmHg BMI (Body Mass Index) 26.2 kg/m2 06/30/2013 Height 70 inches 5'10" Weight 183.00 lb Heart Rate 64 /min BP Systolic Sitting 138 mmHg BP Diastolic Sitting 82 mmHg Respiratory Rate 16 /min BMI (Body Mass Index) 26.3 kg/m2 08/21/2012 Height 70 inches 5'10" Weight 183.00 lb Heart Rate 74 /min BP Systolic Sitting 162 mmHg BP Diastolic Sitting 80 mmHg Respiratory Rate 20 /min BMI (Body Mass Index) 26.3 kg/m2 12/20/2011 Height 70 inches 5'10" Weight 181.00 lb Heart Rate 54 /min BP Systolic 150 mmHg BP Diastolic 78 mmHg BMI (Body Mass Index) 26.0 kg/m2 05/13/2011 Height 70 inches 5'10" Weight 174.00 lb Heart Rate 68 /min BP Systolic Sitting 124 mmHg L BP Diastolic Sitting 78 mmHg L BMI (Body Mass Index) 25.0 kg/m2 10/22/2010 Weight 188.00 lb Heart Rate 72 /min BP Systolic Sitting 116 mmHg BP Diastolic Sitting 64 mmHg 03/20/2010 Height 70 inches 5'10" Weight 193.00 lb Heart Rate 60 /min BP Systolic Sitting 110 mmHg BP Diastolic Sitting 60 mmHg BMI (Body Mass Index) 27.7 kg/m2 10/10/2009 Weight 192.00 lb Heart Rate 67 /min BP Systolic Sitting 120 mmHg BP Diastolic Sitting 70 mmHg Respiratory Rate 16 /min 05/09/2009 Height 70 inches 5'10" Weight 193.00 lb Heart Rate 67 /min BP Systolic Sitting 100 mmHg BP Diastolic Sitting 60 mmHg BP Systolic Standing 100 mmHg BP Diastolic Standing 64 mmHg BMI (Body Mass Index) 27.7 kg/m2 11/18/2008 Height 70 inches 5'10" Weight 191.00 lb Heart Rate 62 /min BP Systolic Sitting 102 mmHg BP Diastolic Sitting 80 mmHg BMI (Body Mass Index) 27.4 kg/m2 05/11/2008 Height 70 inches 5'10" Weight 184.00 lb Heart Rate 56 /min BP Systolic Sitting 120 mmHg L BP Diastolic Sitting 60 mmHg L BMI (Body Mass Index) 26.4 kg/m2 02/25/2008 Height 70 inches 5'10" Weight 187.00 lb Heart Rate 68 /min BP Systolic Sitting 118 mmHg L BP Diastolic Sitting 64 mmHg L BMI (Body Mass Index) 26.8 kg/m2 Results Test Date Test Result H/L Range Note Laboratory test 09/18/2015 Point of Care Glucose 243 mg/dL High 74-106 1 finding Laboratory test 08/17/2015 PSA Diagnostic 0.079 ng/mL 0-4.0 2 finding Laboratory test 10/04/2014 PSA Screening 0.081 ng/mL 0-4.0 3 finding Laboratory test 04/14/2012 PSA,Diagnostic 0.18 NG/ML 0-4 4 finding Creatinine 11/09/2010 Creatinine 1.20 mg/dL 0.50-1.40 One Over Creatinine 0.80 eGFR Non- 58.6 > 60 eGFR 75.3 > 60 5 Laboratory test finding 11/09/2010 BUN 17 mg/dL 6-24 Laboratory test finding 10/04/2009 PSA,Diagnostic 0.11 NG/ML 0-4 6 Laboratory test finding 04/05/2009 PSA,Diagnostic 0.0 NG/ML 0-4 7 Protime 04/28/2008 Protime 10.9 10.9-13.3 Inr 0.81 8 Basic Metabolic Panel 04/28/2008 Sodium 137 mmol/L 135-145 Potassium 4.0 mmol/L 3.5-5.0 Chloride 104 mmol/L 101-111 Co2 (Carbon Dioxide) 24.0 mmol/L 22-32 Anion Gap 9.0 mmol/L 2-11 9 Glucose 106 mg/dL High 70-105 BUN 15 mg/dL 6-24 Creatinine 1.2 mg/dL 0.5-1.4 One Over Creatinine 0.83 BUN/Creatinine Ratio 12.5 8-20 Calcium 8.9 mg/dL 8.1-9.9 10 CBC With Manual Diff 04/28/2008 White Blood Count 4.3 CUMM Low 4.8-10.8 Red Cell Count 4.10 CUMM Low 4.6-6.2 Hemoglobin 12.6 g/dL Low 14.0-18.0 Hematocrit 36 % Low 42-52 Mean Corpuscular Volume 88 um3 80-94 Mean Corpuscular Hemoglob 31 pg 27-31 Mean Corpuscular HGB Cone 35 g/dL 32-36 Redcell Distribution WDTH 15 % 10.5-15 Platelet Count 187 CUMM 150-450 Mean Platelet Volume 7.4 um3 7.4-10.4 Polysegmented Neutrophil 64 % 38-83 Band Neutrophil 1 % 0-8 Lymphocyte 15 % 5-47 Monocyte 14 % High 0-13 Atypical Lymph 6 % 0-6 Absolute Neutrophil Count 2.7 Anisocytosis SLIGHT Polychromasia SLIGHT Cath Panel 04/28/2008 PTT (Aptt) 21.6 20.1-28.2 11 1 General Production Manager: JUDIE DRUMMOND 2 Serum levels of PSA measured using the [employer] DXI Hybritech immunoassay should not be interpreted as absolute evidence of the presence or absence of disease. The PSA value should be used in conjunction with other pertinent clinical diagnostic procedures. A PSA value in the range of 0.1 to 0.6 ng/ml is indeterminate if being used as an indicator of recurrent or residual disease. The values obtained with different assay methods or kits cannot be used interchangeably. 3 Serum levels of PSA measured using the [employer] DXI Hybritech immunoassay should not be interpreted as absolute evidence of the presence or absence of disease. The PSA value should be used in conjunction with other pertinent clinical diagnostic procedures. A PSA value in the range of 0.1 to 0.6 ng/ml is indeterminate if being used as an indicator of recurrent or residual disease. The values obtained with different assay methods or kits cannot be used interchangeably. 4 * SERUM LEVELS OF PSA MEASURED USING THE [employer] ACCESS HYBRITECH IMMUNOASSAY SHOULD NOT BE INTERPRETED ABSOLUTE EVIDENCE OF THE PRESENCE OR ABSENCE OF DISEASE. THE PSA VALUE SHOULD BE USED IN CONJUNCTION WITH OTHER PERTINENT CLINICAL DIAGNOSTIC PROCEDURES. A PSA value in the range of 0.1 to 0.6 ng/ml is indeterminate if being used as an indicator of recurrent or residual disease. . The values obtained with different assay methods of kits cannot be used interchangeably. 5 Because ethnic data is not always readily available, this report includes an eGFR for both -Americans and non- Americans. The National Kidney Disease Education Program (NKDEP) does not endorse the use of the MDRD equation for patients that are not between the ages of 18 and 70, are , have extremes of body size, muscle mass, or nutritional status, or are non- or non-. According to the National Kidney Foundation, irrespective of diagnosis, the stage of the disease is based on the level of kidney function: Stage Description GFR(mL/min/1.73 m(2)) 1 Kidney damage with normal or decreased GFR 90 2 Kidney damage with mild decrease in GFR 60-89 3 Moderate decrease in GFR 30-59 4 Severe decrease in GFR 15-29 5 Kidney failure <15 (or dialysis) 6 * SERUM LEVELS OF PSA MEASURED USING THE Netsket ACCESS HYBRITECH IMMUNOASSAY SHOULD NOT BE INTERPRETED ABSOLUTE EVIDENCE OF THE PRESENCE OR ABSENCE OF DISEASE. THE PSA VALUE SHOULD BE USED IN CONJUNCTION WITH OTHER PERTINENT CLINICAL DIAGNOSTIC PROCEDURES. A PSA value in the range of 0.1 to 0.6 ng/ml is indeterminate if being used as an indicator of recurrent or residual disease. . 7 * SERUM LEVELS OF PSA MEASURED USING THE [employer] ACCESS HYBRITECH IMMUNOASSAY SHOULD NOT BE INTERPRETED ABSOLUTE EVIDENCE OF THE PRESENCE OR ABSENCE OF DISEASE. THE PSA VALUE SHOULD BE USED IN CONJUNCTION WITH OTHER PERTINENT CLINICAL DIAGNOSTIC PROCEDURES. A PSA value in the range of 0.1 to 0.6 ng/ml is indeterminate if being used as an indicator of recurrent or residual disease. . 8 PATRICIA VALUE=2.01 ( OF 09/11/07 Recommended INR for Patients on Oral Anticoagulants Prophylaxis 2.0 - 3.0 Treatment of thrombosis 2.0 - 3.0 Prevention of embolism 2.0 - 3.0 Prevention of embolism from prosthetic heart valves 2.5 - 3.5 9 Anion gap measurement may be of limited value in the presence of any alkalosis, especially in a combined acid base disorder. . 10 Please note change in reference range effective 08 . 11 PLEASE NOTE NEW REFERENCE RANGE EFFECTIVE 08. Procedures Date CPT Code Description Status 10/13/2017 17106 EKG Tracing & Interpretation Completed 04/15/2017 73336 EKG Tracing & Interpretation Completed 03/28/2017 47561 ECHO Transthorasic Realtime 2D W Doppler & Color Completed [facility] 03/28/2017 07348 EKG, Interpretation Only Completed 11/27/2016 52453 EKG Tracing & Interpretation Completed 10/17/2016 14232 ECHO Transthorasic Realtime 2D W Doppler & Color Completed [facility] 02/16/2016 44791 EKG Tracing & Interpretation Completed 12/04/2015 81007 ECHO Transthorasic Realtime 2D W Doppler & Color Completed [facility] 06/16/2015 30895 EKG Tracing & Interpretation Completed 01/31/2015 00319 Treadmill Interp/Report Only Completed 01/31/2015 80471 Stress Test Supervsn W/Out I/R Completed 09/15/2014 01756 EKG Tracing & Interpretation Completed 09/07/2014 99776 EKG, Interpretation Only Completed 09/06/2014 72838 Percutaneous Transcatheter Placement Of Intracoronary Completed Stent 09/06/2014 49798 Revascularization Acute Total/Subtotal Occlusion Completed 09/06/2014 72235 EKG, Interpretation Only Completed 09/06/2014 36441 Left Heart Cath. Incl S/I Coronaries, Angio S/I V Gram Completed If Done 09/05/2014 59920 EKG, Interpretation Only Completed 03/07/2014 87386 EKG Tracing & Interpretation Completed 11/24/2013 74251 ECHO Transthorasic Realtime 2D W Doppler & Color Completed [facility] 06/30/2013 13100 EKG Tracing & Interpretation Completed 08/21/2012 86888 EKG Tracing & Interpretation Completed 12/20/2011 02502 EKG Tracing & Interpretation Completed 05/13/2011 73707 ECHO Transthoracic, Real-Time 2D With Doppler And Color Completed Flow 05/13/2011 89501 EKG Tracing & Interpretation Completed 05/09/2011 67135 Treadmill Interp/Report Only Completed 05/09/2011 05923 Stress Test Supervsn W/Out I/R Completed 10/22/2010 29770 EKG Tracing & Interpretation Completed 03/20/2010 00181 EKG Tracing & Interpretation Completed 03/19/2010 73547 ECHO Transthorasic Realtime 2D W Doppler & Color Completed [facility] 03/12/2010 60630 Treadmill Interp/Report Only Completed 03/12/2010 42911 Stress Test Supervsn W/Out I/R Completed 10/10/2009 43695 EKG Tracing & Interpretation Completed 05/09/2009 44466 EKG Tracing & Interpretation Completed 05/01/2009 43824 Treadmill Interp/Report Only Completed 05/01/2009 73784 Stress Test Supervsn W/Out I/R Completed 04/20/2009 58075 ECHO Transthoracic, Real-Time 2D With Doppler And Color Completed Flow 11/18/2008 44132 EKG Tracing & Interpretation Completed 05/04/2008 92327 Left Heart Catheterization Completed 05/04/2008 78500 Inj Proc LFT Vent/LFT Atrl Angio Completed 05/04/2008 72602 Inj Proc LFT Vent/LFT Atrl Angio Completed 05/04/2008 85627 Coronary Angiography Completed 05/04/2008 33313 S/I/R Inj Proc Vent And Or Atrial Completed 05/04/2008 12816 S/I/R Inj Proc Vent And Or Atrial Completed 05/04/2008 31663 Selective Coronary Angioplasty Completed 04/28/2008 93801 ECHO/Stress Completed 04/28/2008 68017 ECHO/Stress Completed 04/28/2008 22643 ECHO/Stress Completed 04/28/2008 84467 Stress Test Completed 04/28/2008 83145 Stress Test Completed 03/29/2008 65225 Color Doppler Completed 03/29/2008 23828 Pulse Doppler & Continuous Wave Completed 03/29/2008 75379 Pulse Doppler & Continuous Wave Completed 03/29/2008 60137 Echocardiogram Completed 02/25/2008 74750 EKG Tracing & Interpretation Completed 05/02/2005 94978 Treadmill Interp/Report Only Completed 05/02/2005 68267 Stress Test Supervsn W/Out I/R Completed Encounters Type Date Location Provider CPT E/M Dx Office Visit 10/13/2017 9:00a [facility] IRIS Brandon [id number] I25.118 I71.2 I10 Office Visit 04/15/2017 4:00p [facility] Stu Peres 64963 R07.9 Yovana Nicholas M.D. D64.9 I51.7 I34.0 I71.2 I25.118 I10 I45.10 I44.0 R94.31 Office Visit 03/28/2017 4:04p [facility], Reina Mcdonough, 08018 R07.9 Hospitalists Cirilo I25.118 I10 Office Visit 03/27/2017 4:00p [facility], Reina Mcdonough 25041 R07.9 Hospitalists MArron I25.118 I10 Office Visit 11/27/2016 4:00p [facility] Larisa Nicholas, 19598 I25.10 M.DAngela I10 I71.9 I45.10 R94.31 Office Visit 10/29/2016 9:21a [facility] Zoey Carver, 64376 R25.8 M.DAngela Office Visit 10/23/2016 10:34a [facility], Reina Mcdonough, 67035 D72.829 Hospitalists Cirilo D64.9 E11.8 Z79.4 Office Visit 10/20/2016 10:33a [facility] Reina Mcdonough, 92057 D72.829 Hospitalists M.D. D64.9 E11.8 Office Visit 10/18/2016 10:20a [facility] Reina Mcdonough, 85397 I63.9 Hospitalists M.D. D64.9 K92.2 J20.9 Office Visit 10/17/2016 11:39a [facility] [place] [address] I63.9 Office Visit 10/17/2016 10:19a [facility] Reina Mcdonough, 33442 I63.9 Hospitalists M.D. D64.9 K92.2 J20.9 Office Visit 10/16/2016 10:18a [facility] Manisha Martinezr, 07083 I63.9 Hospitalists M.D. D64.9 K92.2 J20.9 Office Visit 10/16/2016 11:38a [facility] [place] [address] I63.9 Office Visit 10/15/2016 10:17a [facility] Manisha Mathew, 03421 I63.9 Hospitalists M.D. D64.9 K92.2 J20.9 Office Visit 10/14/2016 10:17a [facility] Manisha Mathew, 77032 R65.20 Hospitalists M.D. D64.9 J20.9 K92.2 Office Visit 10/13/2016 10:16a [facility] Manisha Mathew, 43135 R65.20 Hospitalists M.D. D64.9 J20.9 K92.2 Office Visit 10/13/2016 7:00a [facility], 29107 K92.2 [facility] Office Visit 10/12/2016 10:15a [facility] Manisha Mathew, 22578 R65.20 Assoc,pc Hospitalists M.D. D64.9 J20.9 K92.2 Office Visit 10/11/2016 7:00a [facility] [place] [address] K92.2 [facility] Office Visit 10/11/2016 10:14a [facility], 65518 R65.20 Assoc, Hospitalists Cirilo J20.9 J44.1 A41.9 Office Visit 02/16/2016 9:40a [facility] Larisa Flannery, 71285 I25.10 M.DAngela E11.9 I10 J44.9 R94.31 I71.9 Office Visit 12/04/2015 1:06p [facility], Damon Inman, 02379 R06.02 Hospitalists MArron I25.10 E11.9 I10 Office Visit 12/03/2015 1:05p [facility], 27223 R06.02 Assoc, Hospitalists MArron I25.10 E11.9 I10 Office Visit 08/12/2015 11:20a [facility], Ari Fox M.D. 46738 E87.2 Hospitalists E11.9 J44.9 Office Visit 06/16/2015 4:00p [facility] Larisa Flannery, 41807 414.00 M.D. 414.9 250.00 414.01 Office Visit 01/29/2015 1:16p [facility], 52896 414.00 Assoc, Hospitalists N.P. 490 786.50 Office Visit 12/20/2014 10:30a [facility] IRIS Brandon 90873EYL 414.9 V45.82 250.00 496 492.8 Office Visit 09/15/2014 1:00p [facility] Larisa Flann[facility], 78612 414.9 M.D. 410.70 496 414.01 V45.82 Office Visit 09/08/2014 3:47p [facility] Torsten Aj, 55777 428.0 M.D. Office Visit 09/08/2014 5:58p [facility], Angelina Dexter, N.P. 41830 786.50 Hospitalists 788.20 414.9 250.00 Office Visit 09/07/2014 5:57p [facility], Angelina Dexter N.P. 17431 786.50 Hospitalists 788.20 414.9 250.00 Office Visit 09/07/2014 1:53p [facility] De Jesus M.D., 04735 410.70 [facility], FSCAI 414.9 Office Visit 09/06/2014 5:56p [facility], Angelina Dexter N.P. 03584 786.50 Hospitalists 496 414.9 250.00 Office Visit 09/05/2014 5:55p [facility], Angelina Dexter N.P. 74778 786.50 Hospitalists 414.9 496 250.00 Office Visit 03/19/2014 1:17p [facility], Reina Mcdonough, 44969 562.11 Hospitalists M.D. 414.00 250.00 Office Visit 03/18/2014 1:16p [facility], Reina Mcdonough, 43081 562.11 Hospitalists M.D. 414.00 250.00 Office Visit 03/17/2014 1:15p [facility] Reina Mcdonough, 98151 562.11 Hospitalists M.D. 276.2 414.00 250.00 Office Visit 03/07/2014 3:40p [facility] Garytaybcresencio SAngela Nicholas, 16802 786.05 M.D. 414.01 401.1 426.4 794.31 272.4 Office Visit 11/24/2013 3:34p [facility] Reina Mcdonough, 00978 466.0 Hospitalists M.D. 786.50 Office Visit 11/23/2013 3:33p [facility] Reina Mcdonough, 12872 466.0 Hospitalists M.D. 786.50 Office Visit 06/30/2013 10:00a [facility] Qutaybeh SAngela Nicholas, 73150 414.01 M.D. 401.1 426.4 272.4 Office Visit 08/21/2012 10:00a [facility] Qutaybeh S. Simydah, 82080 414.01 M.D. 401.1 426.4 272.4 Office Visit 12/20/2011 10:20a [facility] Qutaybeh SAngela Nicholas, 92920 794.31 M.D. 414.01 401.1 426.4 Office Visit 05/13/2011 10:00a [facility] Garytaybcresencio S. Simydah, 99784 794.31 M.D. 414.01 401.1 426.4 272.4 466.0 492.8 250.02 Office Visit 05/09/2011 9:30a [facility] Qutaybeh S. Simydah, 48299 794.31 M.D. 414.01 401.1 426.4 Office Visit 10/22/2010 9:00a [facility] Qutaybeh S. Simydah, 96082 414.01 M.D. 401.1 426.4 272.4 Office Visit 03/20/2010 9:20a [facility] Qutaybeh S. Simyddevika, 08577 414.01 M.D. 401.1 426.4 272.4 Office Visit 10/10/2009 8:40a [facility] Qutayb S. Simyddevika, 26049 414.01 M.D. 401.1 426.4 272.4 Office Visit 05/09/2009 8:50a [facility] Qutaybeh S. Simydah, 57856 414.01 M.D. 401.1 786.05 426.4 Office Visit 11/18/2008 11:20a [facility] Qutaybeh S. haydah, 82115 414.01 M.D. 786.05 426.4 272.4 Office Visit 05/11/2008 11:40a [facility] Qutaybeh S. Simydah, 42275 414.01 M.D. 786.05 401.1 V45.82 426.4 272.4 Office Visit 05/04/2008 1:00p [facility] Qutaybeh S. haydah, 52313 414.01 M.D. 786.05 401.1 V45.82 Office Visit 04/28/2008 3:40p [facility] Qutaybeh S. haydah, [address] 414.01 M.D. 786.05 401.1 V45.82 794.31 426.4 Office Visit 02/25/2008 10:20a [facility] Garyboom Nicholas, 37506 414.01 M.DAngela 786.05 401.1 272.4 V45.82 794.31 426.4 Plan of Care 10/13/2017 - Rebecca Saravia, PAI25.118 Athscl heart disease of napaimute cor art w oth ang pctrsFollow up:Followup with Dr. Nicholas in 6 [id number] Thoracic aortic aneurysm, without [id number] Essential (primary) hypertension
[2017-11-04] MEDS ORDERED: Acetaminophen TAB* 325 MG PO ONE (14:29)
--- NOTE | 2017-11-04 15:15 | RAD ---
HISTORY: Fall, left ankle injury, left foot and ankle pain COMPARISONS: None VIEWS: 10, Frontal, lateral, and oblique views of the left ankle and left foot, frontal and lateral views of the left foreleg, FINDINGS: BONE DENSITY: Normal. BONES: There is an oblique nondisplaced fracture of the distal fibula with articular extension. The tibiofibular interval is normal. JOINTS: There is mild osteoarthritis of the midfoot. ALIGNMENT: There is no dislocation. SOFT TISSUES: Unremarkable. OTHER FINDINGS: None. IMPRESSION: OBLIQUE NONDISPLACED FRACTURE OF THE DISTAL FIBULA
[2017-11-04 15:39] LABS: Hematocrit 38 % (42-52); Mean Corpuscular HGB Conc 35 g/dl (31-36); Mean Corpuscular Hemoglobin 30 pg (27-31); Mean Corpuscular Volume 87 fL (80-94); Mean Platelet Volume 8 um3 (7.4-10.4); Platelet Count 177 10^3/ul (150-450); Red Blood Count 4.32 10^6/ul (4.0-5.4); Red Cell Distribution Width 15 % (10.5-15); White Blood Count 7.6 10^3/ul (3.5-10.8)
[2017-11-04 15:53] LABS: INR 0.86 (0.77-1.02)
[2017-11-04 18:22] VITALS: BP 158/71
--- NOTE | 2017-11-09 14:28 | ED ---
Vitaliy Cadet Stephanie, scribed for Franky Malin MD on 11/04/17 at 1444 . Lower Extremity - HPI Summary HPI Summary: The pt is an 86 y/o M presenting to the ED with L ankle pain that began at 14: 00 today s/p tripping on carpet. Symptoms include L knee pain. The pt fell on hands bilaterally but denies upper extremity pain or injury. The pt denies hip pain and LOC. The pt states that is L foot is numb below the ankle due to hx of diabetes. 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 - Mechanism Of Injury: Fall From A Standing Position Onset of Pain: Post Accident Onset/Duration: Still Present - 45 Severity Currently: Mild Pain Intensity: 5 Pain Scale Used: 0-10 Numeric Timing: Constant Location: Is Discrete @ - L calf and ankle Associated Signs And Symptoms: Positive: Knee Pain Aggravating Factor(s): Ambulation Alleviating Factor(s): Nothing - Allergies/Home Medications Allergies/Adverse Reactions: Allergies Allergy/AdvReac Type Severity Reaction Status Date / Time MS Haloperidol [Haloperidol] Allergy Severe See Comment Verified 03/27/17 15:48 MS Captopril Allergy Coughing Verified 03/27/17 15:48 MS Flavocoxid [From Limbrel] Allergy Swelling Verified 03/27/17 15:48 Of Face,Lips,& Throat MS Pregabalin [From Lyrica] Allergy See Comment Verified 03/27/17 15:48 Tunafish Allergy Swelling Uncoded 03/27/17 15:48 Of Face,Lips,& Throat PMH/Surg Hx/FS Hx/Imm Hx Endocrine/Hematology History: Reports: Hx Anticoagulant Therapy, Hx Blood Transfusions, Hx Diabetes, Hx Unexplained Bleeding Denies: Hx Anemia Cardiovascular History: Reports: Hx Angina, Hx Coronary Artery Disease, Hx Hypercholesterolemia, Hx Hypertension, Hx Myocardial Infarction, 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 Denies: Hx Congestive Heart Failure Respiratory History: Reports: Hx Asthma, Hx Chronic Obstructive Pulmonary Disease (COPD), Hx Pneumonia, Other Respiratory Problems/Disorders - PNEUMONIA GI History: Reports: Hx Gastrointestinal Bleed - 10/2016 History: Reports: Other Problems/Disorders - Prostate CA Denies: Hx Renal Disease Musculoskeletal History: Reports: Hx Arthritis - HIPS/ HANDS Sensory History: Reports: Hx Cataracts, Hx Contacts or Glasses, Hx Deafness, Hx Hearing Aid, Hx Hearing Problem, Other Sensory Impairments Denies: Hx Glaucoma, Hx Legally Blind, Hx Macular Degeneration, Hx Vision Problem Opthamlomology History: Reports: Hx Cataracts, Hx Contacts or Glasses, Other Sensory Impairments Denies: Hx Glaucoma, Hx Legally Blind, Hx Macular Degeneration, Hx Vision Problem Psychiatric History: Denies: Hx Anxiety - Cancer History Cancer Type, Location and Year: prostate Hx Chemotherapy: Yes - 2006 Hx Radiation Therapy: Yes Hx Palliative Cancer Treatment: No - Surgical History Surgery Procedure, Year, and Place: YOUNG CHILD TONSILLECTOMY ANY[facility]. 1971 RUPTURED APPENDIX [facility]. 2003 2 CARDIAC STENTS STRONG. 2004 PROSTATE [facility]. 2007 BILATERAL TUBES IN EARS [facility] Hx Anesthesia Reactions: No Infectious Disease History: No Infectious Disease History: Denies: Hx Clostridium Difficile, Hx Hepatitis, Hx Human Immunodeficiency Virus (HIV), Hx of Known/Suspected MRSA, Hx Shingles, Hx Tuberculosis, Hx Known/ Suspected VRE, Hx Known/Suspected VRSA, Traveled Outside the [place] in Last 30 Days - Family History Known Family History: Positive: Unknown - reviewed & noncontributory, Cardiac Disease - Social History Occupation: Retired Lives: With Family Alcohol Use: Unknown Substance Use Type: Reports: None Hx Tobacco Use: Yes Smoking Status (MU): Former Smoker Type: Cigarettes Have You Smoked in the Last Year: No Review of Systems Negative: Fever, Chills Negative: Erythema Negative: Sore Throat Negative: Chest Pain Negative: Shortness Of Breath, Cough Negative: Abdominal Pain, Vomiting, Nausea Negative: dysuria, hematuria Positive: Other - L ankle and L knee pain. Negative: Myalgia, Edema Negative: Rash Neurological: Other - Negative: dizziness All Other Systems Reviewed And Are Negative: Yes Physical Exam - Summary Physical Exam Summary: Constitutional: Well-developed, Well-nourished, Alert. (-) Distressed Skin: Warm, Dry HENT: Normocephalic; Atraumatic Eyes: Conjunctiva normal Neck: Musculoskeletal ROM normal neck. (-) JVD, (-) Stridor, (-) Tracheal deviation Cardio: Rhythm regular, rate normal, Heart sounds normal; Intact distal pulses; The pedal pulses are 2+ and symmetric. Radial pulses are 2+ and symmetric. (-) Murmur Pulmonary/Chest wall: Effort normal. (-) Respiratory distress, (-) Wheezes, (-) Rales Abd: Soft, (-) Tenderness, (-) Distension, (-) Guarding, (-) Rebound Musculoskeletal: (-) Edema, Mild bony tenderness over the L ankle. Lymph: (-) Cervical adenopathy Neuro: Alert, Oriented x3 Psych: Mood and affect Normal Triage Information Reviewed: Yes Vital Signs On Initial Exam: Initial Vitals Temp Pulse Resp BP Pulse Ox 97.7 F 73 20 166/71 100 11/04/17 13:59 11/04/17 13:59 11/04/17 13:59 11/04/17 13:59 11/04/17 13:59 Vital Signs Reviewed: Yes Diagnostics - Vital Signs Vital Signs Temp Pulse Resp BP Pulse Ox 11/04/17 13:59 97.7 F 73 20 166/71 100 - Laboratory Result Diagrams: 11/04/17 15:24 11/04/17 15:24 Lab Statement: Any lab studies that have been ordered have been reviewed, and results considered in the medical decision making process. - Radiology XRay ankle Xray Interpretation: No Acute Changes Radiology Interpretation Completed By: Radiologist - OBLIQUE NONDISPLACED FRACTURE OF THE DISTAL FIBULA L Foot XRay Xray Interpretation: Positive (See Comments) Radiology Interpretation Completed By: Radiologist - OBLIQUE NONDISPLACED FRACTURE OF THE DISTAL FIBULA L Lower Extremity XRay Xray Interpretation: Positive (See Comments) Radiology Interpretation Completed By: Radiologist - OBLIQUE NONDISPLACED FRACTURE OF THE DISTAL FIBULA - EKG 15:10 Cardiac Rate: NL EKG Rhythm: Sinus Rhythm - 68 BPM EKG Interpretation: No STEMI EKG Comparison: No Significant Change - compared to 03/27/2017 Re-Evaluation - Re-Evaluation First Eval Re-Evaluation Time: 16:31 Change: Improved - Pt's will get help to get pt into house. She is comfortable with discharge plan. Lower Extremity Course/Dx - Course Course Of Treatment: ED physician discussed with Dr. Foreman that pt would not tolerate crutches. He recommended a post-op bot for stabilization. He can use the foot for balance but not for walking. - Diagnoses Provider Diagnoses: Fracture of distal fibula Discharge - Discharge Plan Condition: Stable Disposition: HOME Prescriptions: traMADol TAB* [Ultram*] 50 mg PO Q8H PRN #9 tab MDD 3 PRN Reason: Pain Scale 6-10 Patient Education Materials: Ankle Fracture (ED) Referrals: Ed Blevins MD [Primary Care Provider] - 3 Days Additional Instructions: RETURN TO THE EMERGENCY DEPARTMENT FOR CHANGING OR WORSENING SYMPTOMS The documentation as recorded by the Vitaliy herman Stephanie accurately reflects the service I personally performed and the decisions made by Kimo boyle Jerry, MD.
== END 2017-11-04 17:03 | disposition home or self-care (01) ==
LOC: ED 13:56
DX: S82.839A Other fracture of upper and lower end of unspecified fibula, initial encounter for closed fracture (principal); M25.572 Pain in left ankle and joints of left foot; M25.562 Pain in left knee; Z79.01 Long term (current) use of anticoagulants; Z86.79 Personal history of other diseases of the circulatory system; Z87.891 Personal history of nicotine dependence; W18.09XA Striking against other object with subsequent fall, initial encounter; Y92.9 Unspecified place or not applicable
CPT/HCPCS: 36415; 80053; 85027; 85610; 85730; 99283; A9270-GY

== ENCOUNTER 2017-11-17 12:02 | Inpatient (IN) | payer MEDICARE ==
--- OUTSIDE RECORDS SUMMARY | 2017-11-17 12:40 | XMS REPORT ---
:1930 External Reference #:[id number] Author Organization [facility] Address [address] [address] Phone [phone] Care Team Providers Name Role Phone Ed Blevins MD Primary Care Physician Unavailable Payers Type Date Identification Payment Subscriber Numbers Provider Health Maintenance Effective: Policy Number: Medicare Blue Shar Simmons [facility] ([facility]) 10/06/2012 [id number] o Group Number: [id number] [address] PayID: [id number] SINDI Andino [address] Health Maintenance Effective: Policy Number: Medicare Abelardo Chaves [employer] ([facility]) 10/06/2009 [id number] [facility] Expires: 10/06/2012 PayID: [id number] [address] [address] SINDI Andino [address] Problems Date Description Provider Status Onset: 12/20/2011 Electrocardiogram abnormal Stu Nicholas M.D. Active Onset: 12/20/2011 Coronary arteriosclerosis Stu Nicholas M.D. Active Onset: 12/20/2011 Benign essential hypertension Stu Nicholas M.D. Active Onset: 12/20/2011 Right bundle branch block Stu Nicholas M.D. Active Onset: 06/30/2013 Hyperlipidemia Stu Nicholas M.D. Active Onset: 03/07/2014 Dyspnea Hubert GuidryD. Active Family History Date Family Member(s) Problem(s) Comments General Diabetes General Heart Disease General Hypertension General Cancer : (age 69 Years) Father due to MO : (age 64 Years) Mother due to [...] Tablets ER 2.5mg 90tabs 1 by mouth Felicity 2013 24HR every day kevin Ta MD directed Tums 02/24/ Active Chewtabs 500mg two qd Qutaybeh 2007 Larisa Nicholas M.D. HCTZ 02/24/ Active 25mg. 90unit 1 PO qd Qutaybeh 2007 edin Nicholas M.D. Nitroquick 02/24/ Active [...] Unknown 0000 every day ( started 03/28/17 [facility] discharge ) Ferrous Sulfate / Active Tablets 325mg 1 by mouth Unknown 0000 every day( started 03/28/17 [facility] discharge ) Klor-Con M20 / Active Tablets ER 20Meq 1 by mouth Unknown 0000 every day Irbesartan 07/11/ Hx Tablets 150mg 1 by mouth Felicity, 2013 - every day Ed Elizondo, 11/26/ as 2016 directed Simvastatin 06/20/ Hx Tablets 40mg 90tabs 1 po qd Felicity, 2013 - Ed Elizondo 11/26/ 2016 Qvar 03/07/ Hx Aerosol 1units 2 puffs Stu 2013 - twice a S. 11/11/ day Cristopher Haney M.D. Aspirin 11/18/ Hx Tablets 325mg 1 po qd Qutaybcresencio 2008 - S. 09/14/ Cristopher Cabrera M.D. Plavix 02/24/ Hx Tablets 75mg 90tabs 1 PO qd Qutaybeh 2007 - S. 05/11/ Cristopher Vallejo M.D. Vit D 02/24/ Hx one qd Garytaybcresencio 2007 - S. 09/14/ Cristopher Cabrera M.D. Aspirin 02/24/ Hx Tablets 325mg 1-2 PO qd Qutaybeh 2007 - S. 11/18/ Cristopher Torres M.D. Avapro 02/24/ Hx Tablets 150mg 90tabs 1 PO qd Qutaybeh 2007 - S. 09/14/ Cristopher Cabrera M.D. Lipitor 02/24/ Hx Tablets 40mg 90tabs 1/2tab qhs Qutayb 2007 - S. 05/13/ Cristopher 2010 [facility] Claritin 02/24/ Hx Tablets 10mg 30tabs PO qd prn Qutaybeh 2007 - S. 11/18/ Cristopher 2008 [facility] Metoprolol 02/24/ Hx Tablets 50mg 30tabs one half Garytayb 2007 - bid S. 03/02/ Cristopher 2013 [facility] Advair Diskus 02/24/ Hx Misc 500/50 1 puff bid Garytayb 2007 - S. 03/07/ Cristopher 2013 [facility] Proventil HFA / Hx Aerosol 108(90Base 1month 2 puffs po Unknown 0000 - ) mcg/ac iqbal q 4 hours 09/14/ prn 2013 Ibuprofen / Hx Tablets 200mg 20tabs prn Unknown - 2013 Metformin HCL / Hx Tablets 500mg 60tabs 1 po bid Unknown 0000 - 2013 Limbrel / Hx Capsules 500mg [...] by mouth Unknown 0000 - twice a day as 2017 needed Robitussin DM / Hx Syrup 100-10mg/5 take 1 Unknown 0000 - ML teaspoons 11/26/ by mouth 2016 every 6 hours as needed for cough Potassium / Hx Solution 20Meq/50ML Daily Unknown Chloride 0000 - 2016 Vital Signs Date Vital Result Comment 11/17/2017 Height 70 inches 5'10" Weight 187.00 lb BP Systolic 142 mmHg BP Diastolic 72 mmHg Respiratory Rate 18 /min Pain Level 0 BMI (Body Mass Index) 26.8 kg/m2 2017 Height 70 inches 5'10" Weight 187.00 lb Heart Rate 80 /min BP Systolic 150 mmHg BP Diastolic 80 mmHg BMI (Body Mass Index) 26.8 kg/m2 10/13/2017 Height 70 inches 5'10" Weight 195.00 [...] 04/14/2012 PSA,Diagnostic 0.18 NG/ML 0-4 4 finding Laboratory test 11/09/2010 BUN 17 mg/dL 6-24 finding Creatinine 11/09/2010 Creatinine 1.20 mg/dL 0.50-1.40 One Over Creatinine 0.80 eGFR Non- 58.6 > 60 eGFR 75.3 > 60 5 Laboratory test finding 10/04/2009 PSA,Diagnostic 0.11 NG/ML [...] 04/28/2008 PTT (Aptt) 21.6 20.1-28.2 11 1 Joint Yarner: [id number] DRUMMOND 2 Serum levels of PSA measured using the Jeeves DXI Hybritech immunoassay should not be interpreted [...] Serum levels of PSA measured using the Jeeves DXI Hybritech immunoassay should not be interpreted [...] SERUM LEVELS OF PSA MEASURED USING THE RIC Dropost.it ACCESS HYBRITECH IMMUNOASSAY SHOULD NOT BE INTERPRETED [...] SERUM LEVELS OF PSA MEASURED USING THE Wellntel ACCESS HYBRITECH IMMUNOASSAY SHOULD NOT BE INTERPRETED [...] SERUM LEVELS OF PSA MEASURED USING THE RIC Dropost.it ACCESS HYBRITECH IMMUNOASSAY SHOULD NOT BE INTERPRETED [...] 08. Procedures Date CPT Code Description Status 2017 73667 CLSD TX Distal Fib FX (Lateral Malleolus) w/o Completed manipulation 10/13/2017 92429 EKG Tracing & Interpretation Completed 04/15/2017 89566 EKG Tracing & Interpretation Completed 03/28/2017 05333 ECHO Transthorasic Realtime 2D W Doppler & Color Completed [facility] 03/28/2017 67994 EKG, Interpretation Only Completed 11/27/2016 51169 EKG Tracing & Interpretation Completed 10/17/2016 18944 ECHO Transthorasic Realtime 2D W Doppler & Color Completed [facility] 02/16/2016 69942 EKG Tracing & Interpretation Completed 12/04/2015 49012 ECHO Transthorasic Realtime 2D W Doppler & Color Completed [facility] 06/16/2015 15472 EKG Tracing & Interpretation Completed 01/31/2015 51042 Treadmill Interp/Report Only Completed 01/31/2015 43815 Stress Test Supervsn W/Out I/R Completed 09/15/2014 17299 EKG Tracing & Interpretation Completed 09/07/2014 34203 EKG, Interpretation Only Completed 09/06/2014 02526 Percutaneous Transcatheter Placement Of Intracoronary Completed Stent 09/06/2014 09774 Revascularization Acute Total/Subtotal Occlusion Completed 09/06/2014 45180 EKG, Interpretation Only Completed 09/06/2014 54335 Left Heart Cath. Incl S/I Coronaries, Angio S/I V Gram Completed If Done 09/05/2014 17435 EKG, Interpretation Only Completed 03/07/2014 90007 EKG Tracing & Interpretation Completed 11/24/2013 16131 ECHO Transthorasic Realtime 2D W Doppler & Color Completed [facility] 06/30/2013 92628 EKG Tracing & Interpretation Completed 08/21/2012 67093 EKG Tracing & Interpretation Completed 12/20/2011 02621 EKG Tracing & Interpretation Completed 05/13/2011 11595 ECHO Transthoracic, Real-Time 2D With Doppler And Color Completed Flow 05/13/2011 13909 EKG Tracing & Interpretation Completed 05/09/2011 16271 Treadmill Interp/Report Only Completed 05/09/2011 63999 Stress Test Supervsn W/Out I/R Completed 10/22/2010 06104 EKG Tracing & Interpretation Completed 03/20/2010 45538 EKG Tracing & Interpretation Completed 03/19/2010 97025 ECHO Transthorasic Realtime 2D W Doppler & Color Completed [facility] 03/12/2010 88466 Treadmill Interp/Report Only Completed 03/12/2010 63286 Stress Test Supervsn W/Out I/R Completed 10/10/2009 18986 EKG Tracing & Interpretation Completed 05/09/2009 96817 EKG Tracing & Interpretation Completed 05/01/2009 79194 Treadmill Interp/Report Only Completed 05/01/2009 98227 Stress Test Supervsn W/Out I/R Completed 04/20/2009 03596 ECHO Transthoracic, Real-Time 2D With Doppler And Color Completed Flow 11/18/2008 51655 EKG Tracing & Interpretation Completed 05/04/2008 82745 Left Heart Catheterization Completed 05/04/2008 94028 Inj Proc LFT Vent/LFT Atrl Angio Completed 05/04/2008 73928 Inj Proc LFT Vent/LFT Atrl Angio Completed 05/04/2008 44150 Coronary Angiography Completed 05/04/2008 39177 S/I/R Inj Proc Vent And Or Atrial Completed 05/04/2008 51162 S/I/R Inj Proc Vent And Or Atrial Completed 05/04/2008 14144 Selective Coronary Angioplasty Completed 04/28/2008 43601 ECHO/Stress Completed 04/28/2008 44419 ECHO/Stress Completed 04/28/2008 84884 ECHO/Stress Completed 04/28/2008 09281 Stress Test Completed 04/28/2008 17623 Stress Test Completed 03/29/2008 06187 Color Doppler Completed 03/29/2008 43516 Pulse Doppler & Continuous Wave Completed 03/29/2008 03957 Pulse Doppler & Continuous Wave Completed 03/29/2008 32401 Echocardiogram Completed 02/25/2008 87961 EKG Tracing & Interpretation Completed 05/02/2005 76928 Treadmill Interp/Report Only Completed 05/02/2005 13066 Stress Test Supervsn W/Out I/R Completed Encounters Type Date Location Provider CPT E/M Dx Office Visit 10/13/2017 9:00a [facility] IRIS Brandon 43474SKQ I25.118 I71.2 I10 Office Visit 04/15/2017 4:00p [facility] 44132 R07.9 Yovana Nicholas M.D. D64.9 I51.7 I34.0 I71.2 I25.118 I10 I45.10 I44.0 R94.31 Office Visit 03/28/2017 4:04p [facility], Reina Mcdonough 27281 R07.9 Hospitalists Cirilo I25.118 I10 Office Visit 03/27/2017 4:00p [facility],lucina Mcdonough 50569 R07.9 Hospitalists M.D. I25.118 I10 Office Visit 11/27/2016 4:00p [facility] Stu Nicholas, 02737 I25.10 M.D. I10 I71.9 I45.10 R94.31 Office Visit 10/29/2016 9:21a [facility] Zoey Carver, 66457 R25.8 M.D. Office Visit 10/23/2016 10:34a [facility],pc Reina Mcdonough, 53338 D72.829 Hospitalists M.D. D64.9 E11.8 Z79.4 Office Visit 10/20/2016 10:33a [facility],pc Reina Mcdonough, 28749 D72.829 Hospitalists M.D. D64.9 E11.8 Office Visit 10/18/2016 10:20a [facility],pc Reina Mcdonough, 66575 I63.9 Hospitalists M.D. D64.9 K92.2 J20.9 Office Visit 10/17/2016 11:39a [facility] [place] [address] I63.9 Office Visit 10/17/2016 10:19a [facility],pc Reina Mcdonough, 64285 I63.9 Hospitalists M.D. D64.9 K92.2 J20.9 Office Visit 10/16/2016 10:18a [facility],pc Manisha Carmona, 81977 I63.9 Hospitalists M.D. D64.9 K92.2 J20.9 Office Visit 10/16/2016 11:38a [facility] [place] [address] I63.9 Office Visit 10/15/2016 10:17a [facility],pc Manisha Carmona, 20493 I63.9 Hospitalists M.D. D64.9 K92.2 J20.9 Office Visit 10/14/2016 10:17a [facility],pc Manisha Carmona, 14461 R65.20 Hospitalists M.D. D64.9 J20.9 K92.2 Office Visit 10/13/2016 10:16a [facility],pc Manisha Carmona, 00813 R65.20 Hospitalists Cirilo D64.9 J20.9 K92.2 Office Visit 10/13/2016 7:00a [facility], 35845 K92.2 [facility] Office Visit 10/12/2016 10:15a [facility] Manisha Martinezr, 38764 R65.20 Assoc, Hospitalists Cirilo D64.9 J20.9 K92.2 Office Visit 10/11/2016 7:00[place] [facility] [place] [address] K92.2 [facility] Office Visit 10/11/2016 10:14a [facility], 46153 R65.20 Assoc, Hospitalists Cir[facility] J20.9 J44.1 A41.9 Office Visit 02/16/2016 9:40a [facility] Qutaybeh S. Maghaydah, 31414 I25.10 M.DAngela E11.9 I10 J44.9 R94.31 I71.9 Office Visit 12/04/2015 1:06p [facility], Damon Inman, 65264 R06.02 Hospitalists [facility] I25.10 E11.9 I10 Office Visit 12/03/2015 1:05p [facility], 99511 R06.02 Assoc, Hospitalists Cir[facility] I25.10 E11.9 I10 Office Visit 08/12/2015 11:20a [facility] Ari Fox M.D. 45789 E87.2 Hospitalists E11.9 J44.9 Office Visit 06/16/2015 4:00p [facility] Qutaybeh S. Maghaydah, 01964 414.00 M.DAngela 414.9 250.00 414.01 Office Visit 01/29/2015 1:16p [facility] Edgar Altamirano, 10822 414.00 Assoc, Hospitalists N.P. 490 786.50 Office Visit 12/20/2014 10:30a [facility] IRIS Brandon 79457IYR 414.9 V45.82 250.00 496 492.8 Office Visit 09/15/2014 1:00p [facility] Qutaybcresencio SAngela Nicholas, 01221 414.9 M.D. 410.70 496 414.01 V45.82 Office Visit 09/08/2014 3:47p [facility] Torsten Aj, 82136 428.0 M.D. Office Visit 09/08/2014 5:58p [facility], Angelina Dexter, 60365 786.50 Hospitalists N.P. 788.20 414.9 250.00 Office Visit 09/07/2014 5:57p [facility], Angelina Dexter, 95556 786.50 Hospitalists N.P. 788.20 414.9 250.00 Office Visit 09/07/2014 1:53p [facility] Reed De Jesus M.D., 03468 410.70 [facility], FSCAI 414.9 Office Visit 09/06/2014 5:56p [facility], Angelina Dexter, 75924 786.50 Hospitalists N.P. 496 414.9 250.00 Office Visit 09/05/2014 5:55p [facility], Angelina Dexter, 47027 786.50 Hospitalists N.P. 414.9 496 250.00 Office Visit 03/19/2014 1:17p [facility], Reina Mcdonough, 84797 562.11 Hospitalists M.D. 414.00 250.00 Office Visit 03/18/2014 1:16p [facility] Reina Mcdonough, 70458 562.11 Hospitalists M.D. 414.00 250.00 Office Visit 03/17/2014 1:15p [facility], Reina Mcdonough, 49066 562.11 Hospitalists M.D. 276.2 414.00 250.00 Office Visit 03/07/2014 3:40p [facility] Garytaybcresencio SAngela Nicholas, 01072 786.05 M.D. 414.01 401.1 426.4 794.31 272.4 Office Visit 11/24/2013 3:34p [facility], Reina Mcdonough, 83176 466.0 Hospitalists M.D. 786.50 Office Visit 11/23/2013 3:33p [facility], Reina Mcdonough, 20411 466.0 Hospitalists MArron 786.50 Office Visit 06/30/2013 10:00a [facility] Qutaybeh S. Maghaydah, 23144 414.01 M.D. 401.1 426.4 272.4 Office Visit 08/21/2012 10:00a [facility] Qutaybeh S. Maghaydah, 64803 414.01 M.D. 401.1 426.4 272.4 Office Visit 12/20/2011 10:20a [facility] Qutaybeh S. Maghaydah, 17318 794.31 M.D. 414.01 401.1 426.4 Office Visit 05/13/2011 10:00a [facility] Qutaybeh S. Maghaydah, 83422 794.31 M.D. 414.01 401.1 426.4 272.4 466.0 492.8 250.02 Office Visit 05/09/2011 9:30a [facility] Qutaybeh S. Maghaydah, 96922 794.31 M.D. 414.01 401.1 426.4 Office Visit 10/22/2010 9:00a [facility] Qutaybeh S. Maghaydah, 28901 414.01 M.D. 401.1 426.4 272.4 Office Visit 03/20/2010 9:20a [facility] Qutaybeh S. Maghaydah, 27297 414.01 M.D. 401.1 426.4 272.4 Office Visit 10/10/2009 8:40a [facility] Qutaybeh S. Maghaydah, 96093 414.01 M.D. 401.1 426.4 272.4 Office Visit 05/09/2009 8:50a [facility] Qutaybeh S. Maghaydah, 16897 414.01 M.D. 401.1 786.05 426.4 Office Visit 11/18/2008 11:20a [facility] Qutaybeh S. Maghaydah, 66740 414.01 M.D. 786.05 426.4 272.4 Office Visit 05/11/2008 11:40a [facility] Garytayb S. Cristopher, 26967 414.01 M.D. 786.05 401.1 V45.82 426.4 272.4 Office Visit 05/04/2008 1:00p [facility] Qutaybeh S. Cristopher, 80608 414.01 M.D. 786.05 401.1 V45.82 Office Visit 04/28/2008 3:40p [facility] Qutayb S. Cristopher, 67960 414.01 M.D. 786.05 401.1 V45.82 794.31 426.4 Office Visit 02/25/2008 10:20a [facility] Qutaybeh S. Cristopher, 63786 414.01 M.D. 786.05 401.1 272.4 V45.82 794.31 426.4 Plan of Care Future Appointment(s):12/02/2017 9:00 am - Paddy Bryan MD at [facility]
--- OUTSIDE RECORDS SUMMARY | 2017-11-17 12:41 | XMS REPORT ---
:1930 External Reference #:[id number] Author Organization [facility] Address [address] [address] Phone [phone] Care Team Providers Name Role Phone Ed Blevins MD Primary Care Physician Unavailable Payers Type Date Identification Payment Subscriber Numbers Provider Health Maintenance Effective: Policy Number: Medicare Blue Shar Simmons [facility] [place] ([facility]) 10/06/2012 [id number] o Group Number: [id number] [address] PayID: [id number] SINDI Andino [address] Health Maintenance Effective: Policy Number: Medicare Abelardo Chaves [employer] ([facility]) 10/06/2009 [id number] [facility] [place] Expires: 10/06/2012 PayID: [id number] [address] [address] SINDI Andino [address] Problems Date Description Provider Status Onset: 12/20/2011 [...] : (age 71 Years) Father due to [place] : (age 64 Years) Mother due to [...] Unknown 0000 every day ( started 03/28/17 [facility] discharge ) Ferrous Sulfate / Active Tablets 325mg 1 by mouth Unknown 0000 every day( started 03/28/17 [facility] discharge ) Klor-Con M20 / Active Tablets ER 20Meq 1 by mouth Unknown 0000 every day Irbesartan 07/11/ Hx Tablets 150mg 1 by mouth Felicity, 2013 - every day Ed Elizondo, 11/26/ as 2016 directed Simvastatin 06/20/ Hx Tablets 40mg 90tabs 1 po qd Fleicity, 2013 - Ed Elizondo 11/26/ 2016 Qvar [...] 04/28/2008 PTT (Aptt) 21.6 20.1-28.2 11 1 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: [id number] DRUMMOND 2 Serum levels of PSA measured using the Yoyo DXI Hybritech immunoassay should not be interpreted [...] Serum levels of PSA measured using the Yoyo DXI Hybritech immunoassay should not be interpreted [...] LEVELS OF PSA MEASURED USING THE RIC Gaelectric ACCESS HYBRITECH IMMUNOASSAY SHOULD NOT BE INTERPRETED [...] SERUM LEVELS OF PSA MEASURED USING THE TravelZeeky ACCESS HYBRITECH IMMUNOASSAY SHOULD NOT BE INTERPRETED [...] LEVELS OF PSA MEASURED USING THE RIC Gaelectric ACCESS HYBRITECH IMMUNOASSAY SHOULD NOT BE INTERPRETED [...] Procedures Date CPT Code Description Status 2017 43045 CLSD TX Distal Fib FX (Lateral Malleolus) w/o Completed manipulation 10/13/2017 74245 EKG Tracing & Interpretation Completed 04/15/2017 61097 EKG Tracing & Interpretation Completed 03/28/2017 28475 ECHO Transthorasic Realtime 2D W Doppler & Color Completed [facility] 03/28/2017 63959 EKG, Interpretation Only Completed 11/27/2016 71341 EKG Tracing & Interpretation Completed 10/17/2016 97101 ECHO Transthorasic Realtime 2D W Doppler & Color Completed [facility] 02/16/2016 71139 EKG Tracing & Interpretation Completed 12/04/2015 77082 ECHO Transthorasic Realtime 2D W Doppler & Color Completed [facility] 06/16/2015 78895 EKG Tracing & Interpretation Completed 01/31/2015 68162 Treadmill Interp/Report Only Completed 01/31/2015 61293 Stress Test Supervsn W/Out I/R Completed 09/15/2014 48380 EKG Tracing & Interpretation Completed 09/07/2014 65205 EKG, Interpretation Only Completed 09/06/2014 97997 Percutaneous Transcatheter Placement Of Intracoronary Completed Stent 09/06/2014 00777 Revascularization Acute Total/Subtotal Occlusion Completed 09/06/2014 20561 EKG, Interpretation Only Completed 09/06/2014 48467 Left Heart Cath. Incl S/I Coronaries, Angio S/I V Gram Completed If Done 09/05/2014 07853 EKG, Interpretation Only Completed 03/07/2014 32586 EKG Tracing & Interpretation Completed 11/24/2013 66647 ECHO Transthorasic Realtime 2D W Doppler & Color Completed [facility] 06/30/2013 31908 EKG Tracing & Interpretation Completed 08/21/2012 49231 EKG Tracing & Interpretation Completed 12/20/2011 44224 EKG Tracing & Interpretation Completed 05/13/2011 34674 ECHO Transthoracic, Real-Time 2D With Doppler And Color Completed Flow 05/13/2011 43877 EKG Tracing & Interpretation Completed 05/09/2011 39841 Treadmill Interp/Report Only Completed 05/09/2011 82006 Stress Test Supervsn W/Out I/R Completed 10/22/2010 40291 EKG Tracing & Interpretation Completed 03/20/2010 16265 EKG Tracing & Interpretation Completed 03/19/2010 47558 ECHO Transthorasic Realtime 2D W Doppler & Color Completed [facility] 03/12/2010 08014 Treadmill Interp/Report Only Completed 03/12/2010 67310 Stress Test Supervsn W/Out I/R Completed 10/10/2009 38288 EKG Tracing & Interpretation Completed 05/09/2009 74800 EKG Tracing & Interpretation Completed 05/01/2009 89172 Treadmill Interp/Report Only Completed 05/01/2009 73732 Stress Test Supervsn W/Out I/R Completed 04/20/2009 15119 ECHO Transthoracic, Real-Time 2D With Doppler And Color Completed Flow 11/18/2008 14518 EKG Tracing & Interpretation Completed 05/04/2008 04423 Left Heart Catheterization Completed 05/04/2008 39597 Inj Proc LFT Vent/LFT Atrl Angio Completed 05/04/2008 56817 Inj Proc LFT Vent/LFT Atrl Angio Completed 05/04/2008 80104 Coronary Angiography Completed 05/04/2008 38718 S/I/R Inj Proc Vent And Or Atrial Completed 05/04/2008 54146 S/I/R Inj Proc Vent And Or Atrial Completed 05/04/2008 44534 Selective Coronary Angioplasty Completed 04/28/2008 77126 ECHO/Stress Completed 04/28/2008 75062 ECHO/Stress Completed 04/28/2008 31196 ECHO/Stress Completed 04/28/2008 04194 Stress Test Completed 04/28/2008 80753 Stress Test Completed 03/29/2008 59401 Color Doppler Completed 03/29/2008 35703 Pulse Doppler & Continuous Wave Completed 03/29/2008 95189 Pulse Doppler & Continuous Wave Completed 03/29/2008 69866 Echocardiogram Completed 02/25/2008 49554 EKG Tracing & Interpretation Completed 05/02/2005 57449 Treadmill Interp/Report Only Completed 05/02/2005 70358 Stress Test Supervsn W/Out I/R Completed Encounters Type Date Location Provider CPT E/M Dx Office Visit 10/13/2017 9:00a [facility] IRIS Brandon 74055LNM I25.118 I71.2 I10 Office Visit 04/15/2017 4:00p [facility] 63151 R07.9 Yovana Nicholas M.D. D64.9 I51.7 I34.0 I71.2 I25.118 I10 I45.10 I44.0 R94.31 Office Visit 03/28/2017 4:04p [facility], Reina Mcdonough 47486 R07.9 Hospitalists Cirilo I25.118 I10 Office Visit 03/27/2017 4:00p [facility],lucina Mcdonough 86987 R07.9 Hospitalists M.D. I25.118 I10 Office Visit 11/27/2016 4:00p [facility] Stu Nicholas, 22726 I25.10 M.D. I10 I71.9 I45.10 R94.31 Office Visit 10/29/2016 9:21a [facility] Zoey Carver, 09693 R25.8 M.D. Office Visit 10/23/2016 10:34a [facility],pc Reina Mcdonough, 20473 D72.829 Hospitalists M.D. D64.9 E11.8 Z79.4 Office Visit 10/20/2016 10:33a [facility],pc Reina Mcdonough, 10459 D72.829 Hospitalists M.D. D64.9 E11.8 Office Visit 10/18/2016 10:20a [facility]pc Reina Mcdonough, 16387 I63.9 Hospitalists M.D. D64.9 K92.2 J20.9 Office Visit 10/17/2016 11:39a [facility] [place] [address] I63.9 Office Visit 10/17/2016 10:19a [facility],pc Reina Mcdonough, 85224 I63.9 Hospitalists M.D. D64.9 K92.2 J20.9 Office Visit 10/16/2016 10:18a [facility],pc Manisha Carmona, 91650 I63.9 Hospitalists M.D. D64.9 K92.2 J20.9 Office Visit 10/16/2016 11:38a [facility] [place] [address] I63.9 Office Visit 10/15/2016 10:17a [facility]pc Manisha Carmona, 75832 I63.9 Hospitalists M.D. D64.9 K92.2 J20.9 Office Visit 10/14/2016 10:17a [facility],pc Manisha Carmona, 82318 R65.20 Hospitalists M.D. D64.9 J20.9 K92.2 Office Visit 10/13/2016 10:16a [facility]pc Manisha Carmona, 63806 R65.20 Hospitalists Cirilo D64.9 J20.9 K92.2 Office Visit 10/13/2016 7:00a [facility], 65210 K92.2 [facility] Office Visit 10/12/2016 10:15a [facility] Manisha Martinezr, 11373 R65.20 Assoc, Hospitalists Cirilo D64.9 J20.9 K92.2 Office Visit 10/11/2016 7:00a [facility] [place] [address] K92.2 [facility] Office Visit 10/11/2016 10:14a [facility], 42373 R65.20 Assoc, Hospitalists Cirilo J20.9 J44.1 A41.9 Office Visit 02/16/2016 9:40a [facility] Qutaybeh S. Maghaydah, 97477 I25.10 M.DAngela E11.9 I10 J44.9 R94.31 I71.9 Office Visit 12/04/2015 1:06p [facility], Damon Inman, 64490 R06.02 Hospitalists Cirilo I25.10 E11.9 I10 Office Visit 12/03/2015 1:05p [facility], 39423 R06.02 Assoc, Hospitalists Cirilo I25.10 E11.9 I10 Office Visit 08/12/2015 11:[facility] Ari Fox M.D. 73951 E87.2 Hospitalists E11.9 J44.9 Office Visit 06/16/2015 4:00p [facility] Qutaybeh S. Maghaydah, 30826 414.00 M.DAngela 414.9 250.00 414.01 Office Visit 01/29/2015 1:16p [facility] Edgar Altamirano, 18291 414.00 Assoc, Hospitalists N.P. 490 786.50 Office Visit 12/20/2014 10:30a [facility] IRIS Brandon [address]6097KZP 414.9 V45.82 250.00 496 492.8 Office Visit 09/15/2014 1:00p [facility] Qutaybcresencio SAngela Nicholas, 31551 414.9 M.D. 410.70 496 414.01 V45.82 Office Visit 09/08/2014 3:47p [facility] Torsten Aj, 78442 428.0 M.D. Office Visit 09/08/2014 5:58p [facility], Angelina Dexter, 66341 786.50 Hospitalists N.P. 788.20 414.9 250.00 Office Visit 09/07/2014 5:57p [facility], Angelina Dexter, 71460 786.50 Hospitalists N.P. 788.20 414.9 250.00 Office Visit 09/07/2014 1:53p [facility] Reed De Jesus M.D., 03217 410.70 [facility], FSCAI 414.9 Office Visit 09/06/2014 5:56p [facility], Angelina Dexter, 07185 786.50 Hospitalists N.P. 496 414.9 250.00 Office Visit 09/05/2014 5:55p [facility], Angelina Dexter, 50027 786.50 Hospitalists N.P. 414.9 496 250.00 Office Visit 03/19/2014 1:17p [facility], Reina Mcdonough, 82445 562.11 Hospitalists M.D. 414.00 250.00 Office Visit 03/18/2014 1:16p [facility], Reina Mcdonough, 53696 562.11 Hospitalists M.D. 414.00 250.00 Office Visit 03/17/2014 1:15p [facility], Reina Mcdonough, 73273 562.11 Hospitalists M.D. 276.2 414.00 250.00 Office Visit 03/07/2014 3:40p [facility] Garytaybcresencio SAngela Nicholas, 76754 786.05 M.D. 414.01 401.1 426.4 794.31 272.4 Office Visit 11/24/2013 3:34p [facility], Reina Mcdonough, 21694 466.0 Hospitalists M.D. 786.50 Office Visit 11/23/2013 3:33p [facility] Ass, Reina Mcdonough, 12225 466.0 Hospitalists MArron 786.50 Office Visit 06/30/2013 10:00a [facility] Qutaybeh S. Maghaydah, 79118 414.01 M.D. 401.1 426.4 272.4 Office Visit 08/21/2012 10:00a [facility] Qutaybeh S. Maghaydah, 49101 414.01 M.D. 401.1 426.4 272.4 Office Visit 12/20/2011 10:20a [facility] Qutaybeh S. Maghaydah, 30748 794.31 M.D. 414.01 401.1 426.4 Office Visit 05/13/2011 10:00a [facility] Qutaybeh S. Maghaydah, 95393 794.31 M.D. 414.01 401.1 426.4 272.4 466.0 492.8 250.02 Office Visit 05/09/2011 9:30a [facility] Qutaybeh S. Maghaydah, 47085 794.31 M.D. 414.01 401.1 426.4 Office Visit 10/22/2010 9:00a [facility] Qutaybeh S. Maghaydah, 42519 414.01 M.D. 401.1 426.4 272.4 Office Visit 03/20/2010 9:20a [facility] Qutaybeh S. Maghaydah, 47141 414.01 M.D. 401.1 426.4 272.4 Office Visit 10/10/2009 8:40a [facility] Qutaybeh S. Maghaydah, 64194 414.01 M.D. 401.1 426.4 272.4 Office Visit 05/09/2009 8:50a [facility] Qutaybeh S. Maghaydah, 43147 414.01 M.D. 401.1 786.05 426.4 Office Visit 11/18/2008 11:20a [facility] Qutaybeh S. Maghaydah, 17416 414.01 M.D. 786.05 426.4 272.4 Office Visit 05/11/2008 11:40a [facility] Garytayb S. Cristopher, 39080 414.01 M.D. 786.05 401.1 V45.82 426.4 272.4 Office Visit 05/04/2008 1:00p [facility] Qutaybeh S. Cristopher, 27308 414.01 M.D. 786.05 401.1 V45.82 Office Visit 04/28/2008 3:40p [facility] Qutayb S. Cristopher, 43047 414.01 M.D. 786.05 401.1 V45.82 794.31 426.4 Office Visit 02/25/2008 10:20a [facility] Qutaybeh S. Cristopher, 21187 414.01 M.D. 786.05 401.1 272.4 V45.82 794.31 426.4 Plan of Care Future Appointment(s):12/02/2017 9:00 am - Paddy Bryan MD at [facility]
--- OUTSIDE RECORDS SUMMARY | 2017-11-17 12:42 | XMS REPORT ---
:1930 External Reference #:[id number] Author Organization [facility] Address [address] [address] Phone [phone] Care Team Providers Name Role Phone Ed Blevins MD Primary Care Physician Unavailable Payers Type Date Identification Payment Subscriber Numbers Provider Health Maintenance Effective: Policy Number: Medicare Blue Shar Simmons [facility] [place] ([facility]) 10/06/2012 [id number] o Group Number: [id number] [address] PayID: [id number] SINDI Andino [address] Health Maintenance Effective: Policy Number: Medicare Abelardo Chaves [employer] ([facility]) 10/06/2009 [id number] [facility] Expires: 10/06/2012 PayID: [id number] [address] [address] SINDI Andino [address] Problems Date Description Provider Status Onset: 12/20/2011 [...] : (age 71 Years) Father due to CO : (age 64 Years) Mother due to [...] Unknown 0000 every day ( started 03/28/17 [facility] discharge ) Ferrous Sulfate / Active Tablets 325mg 1 by mouth Unknown 0000 every day( started 03/28/17 [facility] discharge ) Klor-Con M20 / Active Tablets ER 20Meq 1 by mouth Unknown 0000 every day Irbesartan 07/11/ Hx Tablets 150mg 1 by mouth Felicity, 2013 - every day Ed Elizondo, 11/26/ as 2016 directed Simvastatin 06/20/ Hx Tablets 40mg 90tabs 1 po qd Feliciyt, 2013 - Ed Elizondo 11/26/ 2016 Qvar [...] 2016 Vital Signs Date Vital Result Comment 2017 Height 70 inches 5'10" Weight 187.00 [...] 04/28/2008 PTT (Aptt) 21.6 20.1-28.2 11 1 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: [id number] [place] DRUMMOND 2 Serum levels of PSA measured using the Laz OneWheel DXI Hybritech immunoassay should not be interpreted [...] Serum levels of PSA measured using the Laz OneWheel DXI Hybritech immunoassay should not be interpreted [...] SERUM LEVELS OF PSA MEASURED USING THE LAZ Ium ACCESS HYBRITECH IMMUNOASSAY SHOULD NOT BE INTERPRETED [...] SERUM LEVELS OF PSA MEASURED USING THE LAZ Ium ACCESS HYBRITECH IMMUNOASSAY SHOULD NOT BE INTERPRETED [...] SERUM LEVELS OF PSA MEASURED USING THE LAZ Ium ACCESS HYBRITECH IMMUNOASSAY SHOULD NOT BE INTERPRETED [...] Procedures Date CPT Code Description Status 2017 88612 Short Leg Cast Completed 10/13/2017 38312 EKG Tracing & Interpretation Completed 04/15/2017 92109 EKG Tracing & Interpretation Completed 03/28/2017 29686 ECHO Transthorasic Realtime 2D W Doppler & Color Completed [facility] 03/28/2017 00788 EKG, Interpretation Only Completed 11/27/2016 44682 EKG Tracing & Interpretation Completed 10/17/2016 78621 ECHO Transthorasic Realtime 2D W Doppler & Color Completed [facility] 02/16/2016 93685 EKG Tracing & Interpretation Completed 12/04/2015 37237 ECHO Transthorasic Realtime 2D W Doppler & Color Completed [facility] 06/16/2015 29773 EKG Tracing & Interpretation Completed 01/31/2015 36916 Treadmill Interp/Report Only Completed 01/31/2015 01264 Stress Test Supervsn W/Out I/R Completed 09/15/2014 71962 EKG Tracing & Interpretation Completed 09/07/2014 60092 EKG, Interpretation Only Completed 09/06/2014 42334 Percutaneous Transcatheter Placement Of Intracoronary Completed Stent 09/06/2014 71283 Revascularization Acute Total/Subtotal Occlusion Completed 09/06/2014 02157 EKG, Interpretation Only Completed 09/06/2014 79785 Left Heart Cath. Incl S/I Coronaries, Angio S/I V Gram Completed If Done 09/05/2014 53505 EKG, Interpretation Only Completed 03/07/2014 15980 EKG Tracing & Interpretation Completed 11/24/2013 39160 ECHO Transthorasic Realtime 2D W Doppler & Color Completed [facility] 06/30/2013 59464 EKG Tracing & Interpretation Completed 08/21/2012 17831 EKG Tracing & Interpretation Completed 12/20/2011 68865 EKG Tracing & Interpretation Completed 05/13/2011 85991 ECHO Transthoracic, Real-Time 2D With Doppler And Color Completed Flow 05/13/2011 07671 EKG Tracing & Interpretation Completed 05/09/2011 81017 Treadmill Interp/Report Only Completed 05/09/2011 29363 Stress Test Supervsn W/Out I/R Completed 10/22/2010 31735 EKG Tracing & Interpretation Completed 03/20/2010 61393 EKG Tracing & Interpretation Completed 03/19/2010 72093 ECHO Transthorasic Realtime 2D W Doppler & Color Completed [facility] 03/12/2010 77671 Treadmill Interp/Report Only Completed 03/12/2010 42673 Stress Test Supervsn W/Out I/R Completed 10/10/2009 09748 EKG Tracing & Interpretation Completed 05/09/2009 13218 EKG Tracing & Interpretation Completed 05/01/2009 31544 Treadmill Interp/Report Only Completed 05/01/2009 94574 Stress Test Supervsn W/Out I/R Completed 04/20/2009 66625 ECHO Transthoracic, Real-Time 2D With Doppler And Color Completed Flow 11/18/2008 59299 EKG Tracing & Interpretation Completed 05/04/2008 15530 Left Heart Catheterization Completed 05/04/2008 61920 Inj Proc LFT Vent/LFT Atrl Angio Completed 05/04/2008 26000 Inj Proc LFT Vent/LFT Atrl Angio Completed 05/04/2008 51047 Coronary Angiography Completed 05/04/2008 71663 S/I/R Inj Proc Vent And Or Atrial Completed 05/04/2008 63818 S/I/R Inj Proc Vent And Or Atrial Completed 05/04/2008 54793 Selective Coronary Angioplasty Completed 04/28/2008 90751 ECHO/Stress Completed 04/28/2008 65957 ECHO/Stress Completed 04/28/2008 88121 ECHO/Stress Completed 04/28/2008 38501 Stress Test Completed 04/28/2008 07626 Stress Test Completed 03/29/2008 14992 Color Doppler Completed 03/29/2008 39118 Pulse Doppler & Continuous Wave Completed 03/29/2008 30009 Pulse Doppler & Continuous Wave Completed 03/29/2008 71537 Echocardiogram Completed 02/25/2008 98200 EKG Tracing & Interpretation Completed 05/02/2005 14236 Treadmill Interp/Report Only Completed 05/02/2005 60832 Stress Test Supervsn W/Out I/R Completed Encounters Type Date Location Provider CPT E/M Dx Office Visit 2017 [place] [address] S82.65xA 1:00p Of C.[facility]. Office Visit 10/13/2017 [facility] IRIS Brandon 26160NHJ I25.118 9:00a I71.2 I10 Office Visit 04/15/2017 4:00p [facility] Stu Peres 50481 R07.9 Yovana Nicholas M.D. D64.9 I51.7 I34.0 I71.2 I25.118 I10 I45.10 I44.0 R94.31 Office Visit 03/28/2017 4:04p [facility],lucina Mcdonough 59265 R07.9 Hospitalists Cirilo I25.118 I10 Office Visit 03/27[facility]2017 [facility] 40814 R07.9 Hospitalists Cirilo I25.118 I10 Office Visit [facility]2016 [facility] 45949 I25.10 M.D. I10 I71.9 I45.10 R94.31 Office Visit 10/29/2016 9:21a [facility] Zoey Carver, 21046 R25.8 M.D. Office Visit 10/23/2016 10:34a [facility], Reina Mcdonough, 05480 D72.829 Hospitalists M.D. D64.9 E11.8 Z79.4 Office Visit 10/20/2016 10:33a [facility], Reina Mcdonough, 55875 D72.829 Hospitalists M.D. D64.9 E11.8 Office Visit 10/18/2016 10:20a [facility], Reina Sharonda, 65323 I63.9 Hospitalists M.D. D64.9 K92.2 J20.9 Office Visit 10/17/2016 10:19a [facility], Reina Mcdonough, 74316 I63.9 Hospitalists M.D. D64.9 K92.2 J20.9 Office Visit 10/17/2016 11:39a [facility] [address] I63.9 Office Visit 10/16/2016 10:18a [facility], Manisha Carmona, 83577 I63.9 Hospitalists M.D. D64.9 K92.2 J20.9 Office Visit 10/16/2016 11:38a [facility] [place] [address] I63.9 Office Visit 10/15/2016 10:17a [facility], Manisha Carmona, 02495 I63.9 Hospitalists M.D. D64.9 K92.2 J20.9 Office Visit 10/14/2016 10:17a [facility], Manisha Carmona, 41838 R65.20 Hospitalists M.D. D64.9 J20.9 K92.2 Office Visit 10/13/2016 10:16a [facility], Manisha Carmona, 38122 R65.20 Hospitalists M.D. D64.9 J20.9 K92.2 Office Visit 10/13/2016 7:00a [facility], 91183 K92.2 [facility] Office Visit 10/12/2016 10:15a [facility] Manisha Carmona, 69218 R65.20 Assoc, Hospitalists Cirilo D64.9 J20.9 K92.2 Office Visit 10/11/2016 10:14a [facility] [place] [address] R65.20 Assoc, Hospitalists Cirilo J20.9 J44.1 A41.9 Office Visit 10/11/2016 7:00a [facility] [place] [address] K92.2 [facility] Office Visit 02/16/2016 9:40a [facility] Garytaybcresencio S. 94956 I25.10 Cirilo Nicholas E11.9 I10 J44.9 R94.31 I71.9 Office Visit 12/04/2015 1:06p [facility], Damon Inman, 38881 R06.02 Hospitalists Cirilo I25.10 E11.9 I10 Office Visit 12/03/2015 1:05p [facility], 49481 R06.02 Assoc, Hospitalists Cirilo I25.10 E11.9 I10 Office Visit 08/12/2015 11:20a [facility] Ari Fox M.D. 95026 E87.2 Hospitalists E11.9 J44.9 Office Visit 06/16/2015 4:00p [facility] Qutaybeh S. Cristopher, 94446 414.00 Cirilo 414.9 250.00 414.01 Office Visit 01/29/2015 1:16p [facility] Edgar Altamirano, 49580 414.00 Assoc, Hospitalists N.P. 490 786.50 Office Visit 12/20/2014 10:30a [facility] IRIS Brandon 10933XCM 414.9 V45.82 250.00 496 492.8 Office Visit 09/15/2014 1:00p [facility] Qutaybeh S. Cristopher, 86032 414.9 M.D. 410.70 496 414.01 V45.82 Office Visit 09/08/2014 5:58p [facility], Angelina Dexter, 39342 786.50 Hospitalists N.P. 788.20 414.9 250.00 Office Visit 09/08/2014 3:47p [facility] Torsten JeanetteAngela Aj, 98109 428.0 M.D. Office Visit 09/07/2014 1:53p [facility] Reed De Jesus M.D., 67296 410.70 [facility], FSCAI 414.9 Office Visit 09/07/2014 5:57p [facility], Angelina Dexter, 72872 786.50 Hospitalists N.P. 788.20 414.9 250.00 Office Visit 09/06/2014 5:56p [facility], Angelina Dexter, 57052 786.50 Hospitalists N.P. 496 414.9 250.00 Office Visit 09/05/2014 5:55p [facility], Angelina Dexter, 03946 786.50 Hospitalists N.P. 414.9 496 250.00 Office Visit 03/19/2014 1:17p [facility], Reina Mcdonough, 24068 562.11 Hospitalists M.D. 414.00 250.00 Office Visit 03/18/2014 1:16p [facility], Reina Mcdonough, 47484 562.11 Hospitalists M.D. 414.00 250.00 Office Visit 03/17/2014 1:15p [facility], Reina Mcdonough, 78971 562.11 Hospitalists M.D. 276.2 414.00 250.00 Office Visit 03/07/2014 3:40p [facility] Stu Nicholas, 19224 786.05 M.D. 414.01 401.1 426.4 794.31 272.4 Office Visit 11/24/2013 3:34p [facility], Reina Mcdonough, 69702 466.0 Hospitalists M.D. 786.50 Office Visit 11/23/2013 3:33p [facility], Reina Mcdonough, 02445 466.0 Hospitalists M.D. 786.50 Office Visit 06/30/2013 10:00a [facility] Qutaybeh S. Maghaydah, 94680 414.01 M.D. 401.1 426.4 272.4 Office Visit 08/21/2012 10:00a [facility] Qutaybeh S. Maghaydah, 25814 414.01 M.D. 401.1 426.4 272.4 Office Visit 12/20/2011 10:20a [facility] Qutaybeh S. Maghaydah, 57295 794.31 M.D. 414.01 401.1 426.4 Office Visit 05/13/2011 10:00a [facility] Qutaybeh S. Maghaydah, 74763 794.31 M.D. 414.01 401.1 426.4 272.4 466.0 492.8 250.02 Office Visit 05/09/2011 9:30a [facility] Qutaybeh S. Maghaydah, 40934 794.31 M.D. 414.01 401.1 426.4 Office Visit 10/22/2010 9:00a [facility] Qutaybeh S. Maghaydah, 89245 414.01 M.D. 401.1 426.4 272.4 Office Visit 03/20/2010 9:20a [facility] Qutaybeh S. Maghaydah, 72765 414.01 M.D. 401.1 426.4 272.4 Office Visit 10/10/2009 8:40a [facility] Qutaybeh S. Maghaydah, 74494 414.01 M.D. 401.1 426.4 272.4 Office Visit 05/09/2009 8:50a [facility] Qutaybeh S. Maghaydah, 94832 414.01 M.D. 401.1 786.05 426.4 Office Visit 11/18/2008 11:20a [facility] Qutaybeh S. Maghaydah, 31892 414.01 M.D. 786.05 426.4 272.4 Office Visit 05/11/2008 11:40a [facility] Qutaybeh S. Maghaydah, 41225 414.01 M.D. 786.05 401.1 V45.82 426.4 272.4 Office Visit 05/04/2008 1:00p [facility] Stu Nicholas, 48512 414.01 M.D. 786.05 401.1 V45.82 Office Visit 04/28/2008 3:40p [facility] Stu Nicholas, 54524 414.01 M.D. 786.05 401.1 V45.82 794.31 426.4 Office Visit 02/25/2008 10:20a [facility] Stu Nicholas, 44114 414.01 M.D. 786.05 401.1 272.4 V45.82 794.31 426.4 Plan of Care Future Appointment(s):12/02/2017 9:00 am - Paddy Bryan MD at [facility].11/05/2017 - Paddy Bryan, MDS82.65xA Nondisp fx of lateral malleolus of left fibula, initNew Xrays:Ankle Left 3+VWSAnkle Left 3+VWSFollow up:Follow Up: 4 weeks
[2017-11-17 13:02] LABS: ABS Basophils 0.1 10^3/ul (0-0.2); ABS Eosinophils 0.2 10^3/ul (0-0.6); ABS Lymphocytes 1.5 10^3/ul (1.0-4.8); ABS Monocytes 1.1 10^3/ul (0-0.8); ABS Neutrophils 5.9 10^3/ul (1.5-7.7); ABS Nucleated RBC 0 10^3/ul; Eosinophil % 2.4 % (0-6); Hematocrit 38 % (42-52); Hemoglobin 12.9 g/dl (14.0-18.0); Lymphocyte % 17.1 % (25-47); Mean Corpuscular HGB Conc 34 g/dl (31-36); Mean Corpuscular Hemoglobin 30 pg (27-31); Mean Corpuscular Volume 88 fL (80-94); Mean Platelet Volume 8 um3 (7.4-10.4); Nucleated Red Blood Cells % 0.2; Platelet Count 251 10^3/ul (150-450); Red Blood Count 4.28 10^6/ul (4.0-5.4); Red Cell Distribution Width 15 % (10.5-15); White Blood Count 8.7 10^3/ul (3.5-10.8)
[2017-11-17 13:21] LABS: EGFR Non-African American 56.5 (>60)
[2017-11-17 13:40] LABS: INR 0.91 (0.77-1.02)
[2017-11-17] MEDS ORDERED: cefTRIAXone(*) 1 GM in NS 0.9% 50 ML* 50 ML IVPB ONE (14:05)
[2017-11-17] MEDS ORDERED: Acetaminophen TAB* 325 MG PO PRN (18:06)
[2017-11-17] MEDS ORDERED: Ondansetron INJ* 2 MG/ML VIAL IV PRN (18:06)
[2017-11-17] MEDS ORDERED: Albuterol 2.5 MG/3 ML NEB.SOL* (0.083%) INH PRN (18:06)
[2017-11-17] MEDS ORDERED: Al Hydrox/Mg Hydrox/Simet LIQ* 30 ML UDC PO PRN (18:06)
[2017-11-17] MEDS ORDERED: Magnesium Hydroxide LIQ* 30 ML UDC PO PRN (18:06)
[2017-11-17] MEDS ORDERED: Albuterol HFA INHALER* 8 gm MDI INH PRN (18:11)
[2017-11-17] MEDS ORDERED: Dextrose 50% Syringe 50 ML* 25 GM/50 ML SYRINGE IV PUSH PRN (18:14)
[2017-11-17] MEDS ORDERED: NS 0.9% 1000 ML* 1,000 ML IV SCH (18:15)
--- NOTE | 2017-11-17 21:07 | HP ---
CC: Dr. Blevins; Dr. Bryan * HISTORY AND PHYSICAL: DATE OF ADMISSION: 11/17/17 PROVIDER: Margo Vickers NP ATTENDING PHYSICIAN WHILE IN THE HOSPITAL: Dr. Nallely Collins * (dictated by Margo Vickers NP). CHIEF COMPLAINT: 1. Cellulitis to left foot. 2. Diabetic foot ulcer. HISTORY OF PRESENT ILLNESS: Mr. Simmons is an 87-year-old male patient. He carries a history of COPD, CVA in 2016. Subsequently, he had a GI bleed,he also has diabetes, hypertension, AR x2 with 5 stents, prostate cancer in 2006 with a prostatectomy. He comes to the emergency room after being seen by Dr. Bryan at his office for evaluation of left great toe swelling and redness. He currently is in a cast from his knee to his foot for a recent left ankle fracture. At the office, he had his cast removed, which they found a small open area at the dorsal aspect base of his left great toe with surrounding tissue redness. He was sent to the emergency room for further evaluation. While in the emergency room, he had serial lab work drawn and was given 1 g of ceftriaxone. The patient currently denies any pain in the left foot, but states that he does not have a lot of feeling in his foot due to the diabetic neuropathy. reports that yesterday, the left great toe was swollen, but there was no redness and when he woke this morning, she noticed that it was red and swollen and took him to his doctor to be seen and subsequently, he was sent to the emergency room for IV antibiotics and admission. He denies any chest pain , shortness of breath. Denies any fever, chills, nausea, vomiting, or diarrhea. Denies any recent illnesses. We were contacted by the emergency room for evaluation for admission of left foot cellulitis and open wound. PAST MEDICAL HISTORY: Significant for: 1. Hypertension. 2. Left ankle fracture on 11/04/17. 3. CVA in October 2016. 4. GI bleed in October 2016. 5. Diabetes. 6. AR x2 with 5 cardiac stents. 7. Prostate cancer in 2006. PAST SURGICAL HISTORY: 1. Appendectomy. 2. Tonsillectomy. 3. Prostatectomy. 4. Circumcision in 2015. HOME MEDICATIONS: Include: 1. Hydrochlorothiazide 25 mg p.o. daily. 2. Clopidogrel 75 mg p.o. daily. 3. Aspirin 81 mg p.o. daily. 4. Prevacid 30 mg p.o. daily. 5. Vitamin D 1000 units p.o. daily. 6. Glipizide 2.5 mg p.o. daily. 7. Losartan 50 mg q.p.m. 8. Metoprolol 25 mg p.o. b.i.d. 9. Potassium 20 mEq p.o. daily. 10. Atorvastatin 80 mg p.o. daily. 11. Lantus 24 units subcu p.m. 12. Dulera 200/5 two puffs b.i.d. 13. Singulair 10 mg at bedtime. 14. VESIcare 10 mg p.o. q.a.m. 15. Extra Strength Tylenol 500 mg p.o. q.6 hours as needed. 16. Albuterol HFA 2 puffs q.4 hours as needed for shortness of breath. 17. Calcium carbonate 1000 mg p.o. daily. 18. Ascorbic acid 500 mg p.o. daily. 19. Ferrous sulfate 325 mg p.o. daily. ALLERGIES: Include: 1. HALOPERIDOL. 2. CAPTOPRIL. 3. LIMBREL. 4. LYRICA. 5. TUNA FISH. FAMILY HISTORY: Mother and father both with a history of AR's. Mother with a history of diabetes and no reported cancer. SOCIAL HISTORY: The patient states that he quit smoking 59 years ago. Prior to that, he smoked 1 pack per day for 7 to 8 years. Denies any alcohol use. Denies drug use. He is retired. He lives with his . His is his surrogate decision maker in the event he is unable to make his own decisions. Her name is Jelena Simmons, phone number is [phone]. REVIEW OF SYSTEMS: There was no documented fever. There has been no significant weight change. There was no double vision. No ear drainage. Denies any rhinorrhea. There is no sore throat. No thyroid enlargement. Denies having any chest pain. Denies any nocturnal dyspnea. There was no abdominal pain. No nausea, vomiting, or diarrhea. Denies any dysuria or urinary frequency. Does report redness and swelling to the left great toe and dorsal aspect of his foot. Review of 14 systems was completed and all others are negative. PHYSICAL EXAMINATION GENERAL: At this time, Mr. Simmons is an 87-year-old male. He appears well, sitting on the stretcher in the emergency room. He does not appear to be in any acute distress. VITAL SIGNS: Blood pressure 169/73, heart rate is 61, O2 saturation is 96% on room air, temperature was 97.5 temporally. HEENT: Head is atraumatic, normocephalic. Eyes: EOMs are intact. Sclerae anicteric, not pale. Oral mucosa appeared to be moist. NECK: Supple. LUNGS: With expiratory wheezes bilaterally. No rales or rhonchi. CARDIAC: S1, S2. Regular rate and rhythm. No murmurs, rubs, or gallops. ABDOMEN: Soft and nontender. Bowel sounds are present x4. EXTREMITIES: He is moving all 4 extremities. NEUROLOGIC: He is awake. He is hard of hearing. He is alert and oriented x3. Speech is clear. There are no focal deficits. SKIN: Left foot with erythema and swelling. There is a small open area noted to the dorsal aspect at the base of the left great toe. He has small scabbed areas noted to his right great toe and all other toes. He does have a small scabbed area noted to the medial aspect of his right ankle. He does have a cast that is intact from his foot to just below his knee that was placed today by Dr. Bryan. DIAGNOSTIC STUDIES/LAB DATA: WBCs 8.7, hemoglobin 12.9, hematocrit 38, platelet count was 251. INR was 0.91. Sodium 130, potassium 4.3, chloride 98, carbon dioxide was 25, anion gap of 7, BUN 20, creatinine 1.22, glucose was 245 , lactic acid initially was 2.5 and repeat lactic acid was 1.8, calcium 9.7. C- reactive protein is pending at this time. ASSESSMENT AND PLAN: Mr. Simmons is an 87-year-old male patient that came to the ER today after being sent by his orthopedist for cellulitis and open wound on his left foot. We were asked to evaluate him due to the cellulitis and open wound. He will be admitted under inpatient status for: 1. Cellulitis. I suspect this is probably related to having a cast in place and rubbing on his foot. I will place him on Ancef 1 g q.8 hours. We will obtain a wound culture if there is any drainage. We will monitor for signs of increased infection, monitor vital signs. At this time, the patient is afebrile. I will also obtain an MRI of his left foot to rule out osteomyelitis. 2. Chronic obstructive pulmonary disease. We will continue on his Dulera, Singulair, and Ventolin HFA inhalers and we will start albuterol neb q.4 hours as needed for shortness of breath and wheezing. 3. Coronary artery disease. We will continue on his Plavix and metoprolol. 4. Hypertension. We will continue his losartan. 5. Hypercholesterolemia. We will continue on atorvastatin 80 mg p.o. daily. 6. Diabetes. We will continue him on Lantus 24 units subcu p.m. We will hold his glipizide and we will start him on a lispro sliding scale, Accu-Cheks q.a.c. 7. FEN. He will be placed on a carb consistent diet. 8. Code status. He is a full code. 9. DVT prophylaxis. He will be placed on heparin subcu 5000 units q.8 hours. 10. Disposition. He will be placed inpatient. TIME SPENT: Time spent on this admission was approximately 60 minutes, greater than half that time was spent [id number] with the patient and family obtaining his history and physical, the other half the time was spent going over his plan of care with the patient and implementing my plan of care. I discussed this plan of care with my attending, Dr. Collins, and she is in agreement. MARGO VICKERS, GABE [id number]/[facility] #: [id number] MARCELO
[2017-11-17] MEDS: Mometasone/Formoter 200/5 MDI INH SCH (21:10)
[2017-11-17] MEDS: Montelukast Sodium TAB* 10 MG PO SCH (21:33)
[2017-11-17] MEDS: Heparin VIAL(*) 5000 UNITS/ML VIAL (FIVE THOUSAND) SUBCUT SCH (21:34)
[2017-11-17] MEDS: Insulin GLARGINE(*) 1 UNITS UNIT SUBCUT SCH (21:41)
[2017-11-18] MEDS: ceFAZolin 1 GM VIAL(*) 1 GM in D5W 50 ML BAG* 50 ML IVPB SCH ×3 (05:21→21:26)
[2017-11-18] MEDS: Heparin VIAL(*) 5000 UNITS/ML VIAL (FIVE THOUSAND) SUBCUT SCH ×3 (05:22→22:02)
[2017-11-18 06:13] LABS: ABS Basophils 0.1 10^3/ul (0-0.2); ABS Eosinophils 0.2 10^3/ul (0-0.6); ABS Lymphocytes 1.1 10^3/ul (1.0-4.8); ABS Monocytes 0.7 10^3/ul (0-0.8); ABS Neutrophils 3.4 10^3/ul (1.5-7.7); ABS Nucleated RBC 0 10^3/ul; Hematocrit 36 % (42-52); Hemoglobin 12.2 g/dl (14.0-18.0); Lymphocyte % 20.6 % (25-47); Mean Corpuscular HGB Conc 34 g/dl (31-36); Mean Corpuscular Hemoglobin 30 pg (27-31); Mean Corpuscular Volume 87 fL (80-94); Mean Platelet Volume 8 um3 (7.4-10.4); Nucleated Red Blood Cells % 0.1; Platelet Count 188 10^3/ul (150-450); Red Blood Count 4.13 10^6/ul (4.0-5.4); Red Cell Distribution Width 15 % (10.5-15); White Blood Count 5.5 10^3/ul (3.5-10.8)
--- NOTE | 2017-11-18 08:16 | RAD ---
Indication: Infected LEFT great toe. Diabetic. Assess for osteomyelitis. Comparison: November 04, 2017 radiographs. Technique: [employer] 1.5 Allyson [id number] with GEM suite. Noncontrast MRI LEFT foot from level of the transverse tarsal joint through the toes. Report: Extensive superficial and deep soft tissue edema most marked over the dorsum of the forefoot. Suggestion of a soft tissue ulcer at the medial margin of the great toe at the level of the metatarsal phalangeal joint. No loculated soft tissue abscess collection evident. Marrow edema at the medial margin of the head of the first metatarsal with subtle partial loss of normal T1 marrow hyperintensity. Bone marrow signal is otherwise normal throughout the [id number] Negative for joint effusions. Second through fifth toe hammertoe deformities. Diffuse advanced skeletal muscle atrophy. Martinez images saved on the [facility] PACS. IMPRESSION: Subjacent to a probable soft tissue ulcer (correlate with clinical assessment) there is signal change at the medial margin of the head of the first metatarsal consistent with osteomyelitis given the clinical context. Extensive superficial and deep soft tissue edema/inflammation. No loculated abscess collection evident.
[2017-11-18] MEDS: Mometasone/Formoter 200/5 MDI INH SCH ×2 (08:28→22:08)
[2017-11-18] MEDS: Hydrochlorothiazide TAB* 25 MG PO SCH (08:38)
[2017-11-18] MEDS: CMCS Pantoprazole TAB (NF) 40 MG TAB PO SCH (08:38)
[2017-11-18] MEDS: Metoprolol Tartrate TAB* 25 MG PO SCH ×2 (08:38→17:25)
[2017-11-18] MEDS: Calcium Carbonate CHEW TAB* 500 MG (TUMS) PO SCH (08:38)
[2017-11-18] MEDS: CMCS Solifenacin(NF) 5 MG TAB PO SCH (08:38)
[2017-11-18] MEDS: Insulin LISPRO* 1 UNITS UNIT SUBCUT SCH ×3 (08:39→17:25)
[2017-11-18] MEDS: Clopidogrel TAB* 75 MG PO SCH (08:39)
[2017-11-18] MEDS: Ferrous Sulfate TAB* 325 MG PO SCH (08:39)
[2017-11-18] MEDS: Aspirin EC Low Dose* 81 MG TAB.EC PO SCH (08:39)
[2017-11-18] MEDS: Potassium Chlor TAB* 20 MEQ TAB.ER PO SCH (08:39)
[2017-11-18] MEDS: Cholecalciferol TAB* 1000 UNITS PO SCH (08:39)
[2017-11-18] MEDS: Ascorbic Acid TAB* 500 MG PO SCH (08:39)
--- NOTE | 2017-11-18 16:53 | CONS ---
CC: Dr. Blevins * CONSULTATION REPORT: DATE OF CONSULT: 11/18/17 ORTHOPEDIC ATTENDING PROVIDER: Paddy Bryan MD CHIEF COMPLAINT: 1. Cellulitis to left foot. 2. Diabetic foot ulcers, left foot. HISTORY OF PRESENT ILLNESS: Mr. Simmons is an 87-year-old male with history of COPD, diabetes, CVA, GI bleed, prostate cancer, hypertension, and ankle fracture on 11/04/17. He was seen in the office yesterday, 11/17/17, by Dr. Paddy Bryan and sent to the emergency room as after removing the cast from his left ankle, a small ulcerated area on the dorsum of his left great toe with surrounding tissue redness was identified. He was sent to the emergency room where he was admitted and given 1 g of ceftriaxone. At baseline, the patient has very poor sensation in bilateral feet due to diabetic neuropathy. As reported by , his toe has been swollen for the past 2 days. At this point, the patient is admitted. He denies any feeling of fever or chills. He denies any pain in his left foot. He confirms that he has very little sensation of the left foot. PAST MEDICAL HISTORY: 1. Hypertension. 2. Left ankle fracture on 11/04/17. 3. CVA in October 2016. 4. GI bleed October 2016. 5. Diabetes. 6. IA and 5 cardiac stents. 7. Prostate cancer in 2017. PAST SURGICAL HISTORY: 1. Appendectomy. 2. Tonsillectomy. 3. Prostatectomy. 4. Circumcision. MEDICATIONS: As in chart. ALLERGIES: 1. HALOPERIDOL. 2. CAPTOPRIL. 3. LYRICA. 4. TUNA FISH. 5. LIMBREL. 6. PREGABALIN. 7. CATECHIN and BAICALIN. FAMILY HISTORY: Heart disease. SOCIAL HISTORY: Former smoker. Denies alcohol use. Denies drug use. Lives with , Jelena. REVIEW OF SYSTEMS: Constitutional: The patient denies fevers or chills. HEENT : The patient is very hard of hearing. Heart: History of IA and cardiac stents. No chest pain. Respiratory: Chronic cough. No shortness of breath. GI: No nausea, vomiting, diarrhea. Skin: Redness and swelling of the left great toe. Endocrine: History of diabetes. PHYSICAL EXAMINATION: Vital Signs: Temperature 98.2, pulse 72, respiratory rate 16, oxygen saturation 94%, blood pressure 168/71. General: The patient is well appearing, in no acute distress. He is lying in bed with his accompanying him. HEENT: Normocephalic, atraumatic. Eyes: EOMI. Lungs: Expiratory wheezes throughout. Good air exchange. Cardiac: S1, S2. Musculoskeletal: Left lower extremity, short leg cast in place. Exposed are patient's toes. The left great toe is with a roughly 1 x 0.3 cm open ulceration with surrounding erythema. There is demarcated line of the forefoot of which the erythema does not cross. The foot does appear edematous, though per 's report it is much less edematous than it was found to be yesterday. Capillary refill is brisk within 2 seconds of the left toes. The patient lacks sensation of the toes distally. Proximal to the cast on the left leg, there is no streaking erythema beyond the point of the forefoot and the demarcated line, which was placed yesterday. There is no warmth of the foot. Additionally on the right foot, the dorsal aspect of all toes does have small excoriations from a recent fall with mild surrounding erythema. No streaking erythema, no warmth and no tenderness. On the medial malleolus, there is a pea-sized excoriation that has been bleeding on and off, currently not bleeding, no surrounding erythema. Vascular: The right calf is soft and supple, nontender without any palpable cords. DIAGNOSTIC STUDIES: MRI of the left lower extremity, impression: Probable soft tissue ulcer, signal change at the medial margin of the head of the first metatarsal consistent with osteomyelitis, extensive superficial and deep soft tissue edema and inflammation, no loculated abscess collection evident. ASSESSMENT: Cellulitis and ulceration of the left great toe, rule out osteomyelitis. PLAN: Mr. Simmons is an 87-year-old male with cellulitis and ulceration of the left great toe. Dr. Bryan will see patient this evening. The patient will continue with IV antibiotics per the hospitalist service and we will continue to monitor for any worsening of infection. IRIS SALVADOR [id number]/[facility] #: [id number] MARCELO
[2017-11-18] MEDS ORDERED: Atorvastatin* 80 MG TAB PO SCH (17:00)
[2017-11-18] MEDS: Insulin GLARGINE(*) 1 UNITS UNIT SUBCUT SCH (17:25)
--- NOTE | 2017-11-18 17:44 | PN ---
Progress Note - Progress Note Date of Service: 11/18/17 Note: Chief Complaint: Left great toe pain and swelling History: Shar is a 87 male who is retired. He sustained a left ankle fracture on 11/04/17. He has been treated nonoperatively with a cast. At baseline, he uses either a cane or a walker for ambulation. He has diabetic neuropathy. On 11/15/17, his started to notice some redness and swelling of the left great toe. Due to his neuropathy, he has no sensation of pain there. I sent him to the emergency room yesterday and he was admitted for IV antibiotics. He and his report that the redness and swelling has greatly improved. No smoking or h/o VTE. He has type 2 diabetes. He has baseline weakness from a stroke. Review of Systems: Negative for fever, recent visual changes, difficulty swallowing, chest pain, shortness of breath, abdominal pain, hematuria, easy bruising, and diffuse rash. Physical Examination: Constitutional: Temp Pulse Resp BP Pulse Ox 98.0 F 76 16 150/82 95 11/18/17 15:39 11/18/17 15:39 11/18/17 15:39 11/18/17 15:39 11/18/17 15:39 General appearance is healthy and non-septic in no acute distress. Psychiatric / Neurological: Appropriate affect. Alert and oriented to person, place and time. There is no significant abnormality in coordination appreciated. hyporeflexive deep tendon reflex of the affected extremity. Musculoskeletal: Bilateral upper extremities and contralateral lower extremity show full range of motion with no evidence of instability and no tenderness with palpation and 5 /5 strength. There is no gross deformity. The cast was removed to evaluate the left lower extremity. Diminished light touch sensation. Weakness in the left lower extremity. Left ankle exam demonstrates neutral alignment. There is mild swelling diffusely around the ankle. Ankle motion is from 0-30 degrees. Normal Centeno's test. Tenderness is at the distal fibula. The great toe, there is a small superficial ulcer. There is much improved surrounding erythema. There is much improved swelling of the great toe. There is no tracking proximally of the erythema. He is involuntarily plantarflex his foot in the cast, so I padded the area between his foot in the bottom of the cast. Imaging: I reviewed the MRI and don't think the signal in the first metatarsal head on T2 is likely osteomyelitis, given the maintenance of fatty signal on the T1 image. This is more likely reactive. Assessment and Plan: Left great toe ulcer with cellulitis. This has already improved greatly with IV antibiotics. I would continue the antibiotics for cellulitis. The area between the bottom of his foot and the cast should remain with extra padding. Continue with wound care for his ulcers. Nonweightbearing on the left lower extremity. Paddy Bryan MD
[2017-11-18] MEDS ORDERED: Losartan TAB* 25 MG PO SCH (18:00)
--- NOTE | 2017-11-18 18:12 | PN ---
Subjective Date of Service: 11/18/17 Interval History: No complaints. Denies pain. Denies shortness of breath or chest pain. Denies abd pain, n/v/d Objective Active Medications: Acetaminophen (Tylenol Tab*) 650 mg PO Q4H PRN PRN Reason: FEVER/PAIN Al Hydrox/Mg Hydrox/Simethicone (Maalox Plus*) 30 ml PO Q6H PRN PRN Reason: INDIGESTION Albuterol (Ventolin 2.5 Mg/3 Ml Neb.Shayla*) 2.5 mg INH RT.Z4IC-ESBMA AWAKE PRN PRN Reason: sob/wheezing Albuterol (Ventolin Hfa Inhaler*) 2 puff INH Q4H PRN PRN Reason: SOB/WHEEZING Ascorbic Acid (Vitamin C Tab*) 500 mg PO DAILY [facility] Last Admin: 11/18/17 08:39 Dose: 500 mg Aspirin (Aspirin Ec Low Dose*) 81 mg PO QAM [facility] Last Admin: 11/18/17 08:39 Dose: 81 mg Atorvastatin Calcium (Lipitor*) 80 mg PO 1700 [facility] Last Admin: 11/18/17 17:26 Dose: 80 mg Calcium Carbonate (Tums*) 1,000 mg PO DAILY [facility] Last Admin: 11/18/17 08:38 Dose: 1,000 mg Cholecalciferol (Vitamin D Tab*) [facility] Admin: 11/18/17 08:39 Dose: 1,000 units Clopidogrel Bisulfate (Plavix Tab*) 75 mg PO QAM [facility] Last Admin: 11/18/17 08:39 Dose: 75 mg Dextrose (D50w Syringe 50 Ml*) 12.5 gm IV PUSH .FOR FS < 60 - SS PRN PRN Reason: FS < 60 Ferrous Sulfate (Ferrous Sulfate Tab*) 325 mg PO DAILY [facility] Last Admin: 11/18/17 08:39 Dose: 325 mg Heparin Sodium (Porcine) (Heparin Vial(*)) 5,000 units SUBCUT Q8HR [facility] Last Admin: 11/18/17 13:34 Dose: 5,000 units Hydrochlorothiazide (Hydrodiuril Tab*) 25 mg PO QAM [facility] Last Admin: 11/18/17 08:38 Dose: 25 mg Cefazolin Sodium 1 gm/ (Dextrose) 50 mls @ 200 mls/hr IVPB Q8H [facility] Last Admin: 11/18/17 13:34 Dose: 200 mls/hr Insulin Glargine (Lantus(*)) 24 units SUBCUT QPM [facility] Last Admin: 11/18/17 17:25 Dose: 24 units Insulin Human Lispro (Humalog*) 0 units SUBCUT AC [facility] PRN Reason: Protocol Last Admin: 11/18/17 17:25 Dose: 1 unit Losartan Potassium (Cozaar Tab*) 50 mg PO QPM [facility] Last Admin: 11/18/17 17:25 Dose: 50 mg Magnesium Hydroxide (Milk Of Magnesia Liq*) 30 ml PO Q4H PRN PRN Reason: CONSTIPATION Metoprolol Tartrate (Lopressor Tab*) 25 mg PO BID WITH MEALS [facility] Last Admin: 11/18/17 17:25 Dose: 25 mg Mometasone Furoate/Formoterol Fumar (Dulera 200/5 Mdi*) 2 puff INH BID [facility] Last Admin: 11/18/17 08:28 Dose: Not Given Montelukast Sodium (Singulair Tab*) 10 mg PO BEDTIME [facility] Last Admin: 11/17/17 21:33 Dose: 10 mg Ondansetron HCl (Zofran Inj*) 4 mg IV Q4H PRN PRN Reason: NAUSEA/VOMITING Pantoprazole Sodium (Protonix Tab (Nf)) 40 mg PO DAILY [facility] Last Admin: 11/18/17 08:38 Dose: 40 mg Potassium Chloride (Klor Con Er Tab*) 20 meq PO QAM [facility] Last Admin: 11/18/17 08:39 Dose: 20 meq Solifenacin (Vesicare(Nf)) 10 mg PO QAM [facility] Last Admin: 11/18/17 08:38 Dose: 10 mg Vital Signs - 8 hr 11/18/17 11/18/17 11:12 15:39 Temperature 98.2 F 98.0 F Pulse Rate 88 76 Respiratory 17 16 Rate Blood Pressure 149/65 150/82 (mmHg) O2 Sat by Pulse 96 95 Oximetry Oxygen Devices in Use Now: None Result Diagrams: 11/18/17 05:57 11/18/17 05:57 Assess/Plan/Problems-Billing Assessment: Mr. Simmons is an 87 y.o male that presented to the Emergency room with cellulitis to the left foot and ulceration. Pt recently fractured his left ankle, non operative fracture that was casted on 11/05/2017. was seen at Dr. Bryan's office sent for further evaluation - Patient Problems (1) Cellulitis, toe Current Visit: Yes Status: Acute Code(s): L03.039 - CELLULITIS OF UNSPECIFIED TOE SNOMED Code(s): 80829399 Comment: Left great toe cellulitis will continue ancef 1 gram Q 8 possible osteomylitis on the MRI ID consulted (2) COPD with acute bronchitis Current Visit: No Status: Acute Code(s): J44.0 - CHRONIC OBSTRUCTIVE PULMON DISEASE W ACUTE LOWER RESP INFCT SNOMED Code(s): 205637212940194 Comment: stable ~ will continue on home medications singulair, dulera, albuterol inhaler Albuterol nebs as needed for wheezing (3) History of hypertension Current Visit: No Status: Chronic Priority: Medium Code(s): Z86.79 - PERSONAL HISTORY OF OTHER DISEASES OF THE CIRCULATORY SYSTEM SNOMED Code(s): 255801308 Comment: Continue home medications (4) Hx of heart artery stent Current Visit: No Status: Chronic Priority: Medium Code(s): Z95.5 - PRESENCE OF CORONARY ANGIOPLASTY IMPLANT AND GRAFT SNOMED Code(s): 490561303 Comment: LAD X'S 2 2003 continue plavix (5) Type 2 diabetes mellitus Current Visit: No Status: Chronic Comment: - Continue Lantus, Lispro SS Blood glucose 145 this AM (6) Full code status Current Visit: No Status: Acute Code(s): Z78.9 - OTHER SPECIFIED HEALTH STATUS SNOMED Code(s): 719380356 (7) DVT prophylaxis Current Visit: No Status: Acute Code(s): KAG7626 - SNOMED Code(s): 512585663 Comment: HSQ. Status and Disposition: inpatient
--- NOTE | 2017-11-18 21:10 | CONS ---
CONSULTATION REPORT: DATE OF CONSULT: 11/18/17 REQUESTING PROVIDER: Margo Vickers NP CONSULTING SERVICE: Infectious Disease. REASON FOR CONSULT: Left foot infection. IMPRESSION: 1. Superficial ulceration of the left medial forefoot with associated cellulitis. Suspect strep as the primary pathogen. An MRI was done that showed marrow edema of medial and marginal head of first metatarsal, subtle partial loss of normal T1 marrow hyperintensity. I do not believe there is osteomyelitis given the time course and relatively minor ulceration. 2. Recent left ankle fracture treated with casting. 3. History of stroke, October 2016. 4. Coronary artery disease and percutaneous coronary intervention. 5. Diabetes. RECOMMENDATION: Continue Ancef. As long as he is continuing to improve, he could be discharged on clindamycin to complete a 10-day course with close followup of his foot. HISTORY OF PRESENT ILLNESS: An 87-year-old male with left ankle fracture, he had a cast placed end of October, recently was seen by Dr. Bryan and found a small ulceration in the left medial forefoot from the cast itself with some associated redness. He had him come to the ER, the MRI was done last night with findings as described above. Blood cultures were sent and are negative. He has had no fever here. White blood cell count was 5, his CRP was 14. He has been on Ancef, tolerating it well with some decrease in the redness today. He has numbness in the feet, cannot say if he has any pain there. PAST MEDICAL HISTORY: 1. Diabetes with neuropathy. 2. CVA, October 2016. 3. Left ankle fracture, October 2017. 4. GI bleed, October 2016. 5. Coronary artery disease, history of CO and PCI. 6. Prostate cancer. 7. Status post appendectomy. 8. Status post tonsillectomy. 9. Status post prostatectomy. 10. Status post circumcision, 2016. MEDICATIONS: 1. Albuterol inhaler. 2. Vitamin C. 3. Lipitor. 4. Aspirin. 5. Calcium carbonate. 6. Cholecalciferol. 7. Plavix. 8. Heparin subcutaneous injection. 9. Hydrochlorothiazide. 10. Insulin glargine. 11. Insulin lispro. 12. Cefazolin 1 g IV every 8 hours. 13. Losartan. 14. Metoprolol. 15. Singulair. 16. Pantoprazole. 17. Solifenacin. ALLERGIES: HALDOL, CAPTOPRIL, LIMBREL, LYRICA. FAMILY HISTORY: Parents both had coronary disease, mother had diabetes. SOCIAL HISTORY: Past smoker, he is retired, lives with his who is a surrogate decision maker. REVIEW OF SYSTEMS: A 14-point review of systems was negative except as noted above. PHYSICAL EXAM: Vital Signs: Temperature is 37, heart rate 80, respiratory rate 17, blood pressure 150/60, oxygen saturation 96% on room air. In general, he is awake, not in distress. Neurologic: He is oriented x1. He answers questions appropriately. HEENT: There is no conjunctival hemorrhage. Oropharynx is without lesions. Neck is supple. Lymph Nodes: There is no inguinal, axillary, or epitrochlear lymphadenopathy. Heart has regular rate and rhythm without murmurs, rubs, or gallops. Lungs: Clear to auscultation bilaterally. Abdomen: Soft, nontender, nondistended. Bowel sounds are present. Skin: There is no splinter hemorrhage on the left medial forefoot, there is a 2-mm eschar with surrounding mild erythema. No crepitus or fluctuance. There is no tenderness. There is no sensation to light touch. Musculoskeletal: There is no joint synovitis. There is a cast on the left ankle. LABORATORY DATA: Creatinine 1.1. White blood cell count 5, hemoglobin 12, platelets 188. Please see impressions and recommendations as outlined above. Thank you for asking me to see Mr. Simmons in consultation. [id number]/[facility] #: [id number] [facility]ITALChen
[2017-11-18] MEDS: Montelukast Sodium TAB* 10 MG PO SCH (21:26)
[2017-11-19] MEDS: ceFAZolin 1 GM VIAL(*) 1 GM in D5W 50 ML BAG* 50 ML IVPB SCH ×2 (05:26→13:15)
[2017-11-19] MEDS: Heparin VIAL(*) 5000 UNITS/ML VIAL (FIVE THOUSAND) SUBCUT SCH ×2 (05:31→13:15)
[2017-11-19] MEDS: Mometasone/Formoter 200/5 MDI INH SCH (07:48)
[2017-11-19] MEDS: Insulin LISPRO* 1 UNITS UNIT SUBCUT SCH ×2 (08:31→13:15)
--- NOTE | 2017-11-19 08:38 | ED ---
Nomi Cadet Angela, scribed for Migel Salcido MD on 11/17/17 at 1411 . Lower Extremity - HPI Summary HPI Summary: This pt is a 87 y/o male presenting to [facility] for a possible left foot infection for the past 2 days. reports the pt fractured his left ankle on 11/04/17 and was placed on a cam boot. Per , pt notes the pt's left foot started to look "strange" 2 days ago on Friday. Pt saw Dr. Bryan, orthopedist, today and was told to come to the ED for admission and IV antibiotics. denies fever. - History of Current Complaint Chief Complaint: EDSoftTissueLowExtr Stated Complaint: FOOT INFECTION Hx Obtained From: Patient Mechanism Of Injury: Fall From A Standing Position Onset of Pain: Days Onset/Duration: Days Pain Intensity: 0 Timing: Constant, Lasting Days Location: Is Discrete @ - left ankle Associated Signs And Symptoms: Positive: Redness Aggravating Factor(s): Nothing Alleviating Factor(s): Nothing - Allergies/Home Medications Allergies/Adverse Reactions: Allergies Allergy/AdvReac Type Severity Reaction Status Date / Time MS Haloperidol [Haloperidol] Allergy Severe See Comment Verified 03/27/17 15:48 MS Captopril Allergy Coughing Verified 03/27/17 15:48 MS Flavocoxid [From Limbrel] Allergy Swelling Verified 03/27/17 15:48 Of Face,Lips,& Throat MS Pregabalin [From Lyrica] Allergy See Comment Verified 03/27/17 15:48 [place] Allergy Swelling Uncoded 03/27/17 15:48 Of Face,Lips,& Throat Home Medications: Home Medications Acetaminophen [Acetaminophen Extra Strength] 500 mg PO Q6HR PRN 11/17/17 [ History Confirmed 11/17/17] Aspirin EC Low Dose* [Ecotrin EC Low Dose 81 MG*] 81 mg PO QAM 11/17/17 [ History Confirmed 11/17/17] Clopidogrel TAB* [Plavix TAB*] 75 mg PO QAM 11/17/17 [History Confirmed 11/17/17 ] Ferrous Sulfate TAB* 325 mg PO DAILY 11/17/17 [History Confirmed 11/17/17] Hydrochlorothiazide TAB* [Hydrodiuril TAB*] 25 mg PO QAM 11/17/17 [History Confirmed 11/17/17] Losartan TAB* [Cozaar TAB*] 50 mg PO QPM 11/17/17 [History Confirmed 11/17/17] Potassium Chloride [Klor-Con M20] 20 meq PO QAM 11/17/17 [History Confirmed 09/22] Solifenacin(NF) [Vesicare(NF)] 10 mg PO QAM 11/17/17 [History Confirmed 11/17/17 ] PMH/Surg Hx/FS Hx/Imm Hx Endocrine/Hematology History: Reports: Hx Anticoagulant Therapy, Hx Blood Transfusions, Hx Diabetes, Hx Unexplained Bleeding Denies: Hx Anemia Cardiovascular History: Reports: Hx Angina, Hx Coronary Artery Disease, Hx Hypercholesterolemia, Hx Hypertension, Hx Myocardial Infarction, 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 Denies: Hx Congestive Heart Failure Respiratory History: Reports: Hx Asthma, Hx Chronic Obstructive Pulmonary Disease (COPD), Hx Pneumonia, Other Respiratory Problems/Disorders - PNEUMONIA GI History: Reports: Hx Gastrointestinal Bleed - 10/2016 History: Reports: Other Problems/Disorders - Prostate CA Denies: Hx Renal Disease Musculoskeletal History: Reports: Hx Arthritis - HIPS/ HANDS Sensory History: Reports: Hx Cataracts, Hx Contacts or Glasses, Hx Deafness, Hx Hearing Aid, Hx Hearing Problem, Other Sensory Impairments Denies: Hx Glaucoma, Hx Legally Blind, Hx Macular Degeneration, Hx Vision Problem Opthamlomology History: Reports: Hx Cataracts, Hx Contacts or Glasses, Other Sensory Impairments Denies: Hx Glaucoma, Hx Legally Blind, Hx Macular Degeneration, Hx Vision Problem Psychiatric History: Denies: Hx Anxiety - Cancer History Cancer Type, Location and Year: prostate Hx Chemotherapy: Yes - 2006 Hx Radiation Therapy: Yes Hx Palliative Cancer Treatment: No - Surgical History Surgery Procedure, Year, and Place: YOUNG CHILD TONSILLECTOMY [facility]. 1972 RUPTURED APPENDIX [facility]. 2004 2 CARDIAC STENTS STRONG. 2005 PROSTATE [facility]. 2008 BILATERAL TUBES IN EARS [facility] Hx Anesthesia Reactions: No Infectious Disease History: No Infectious Disease History: Denies: Hx Clostridium Difficile, Hx Hepatitis, Hx Human Immunodeficiency Virus (HIV), Hx of Known/Suspected MRSA, Hx Shingles, Hx Tuberculosis, Hx Known/ Suspected VRE, Hx Known/Suspected VRSA, Traveled Outside the [place] in Last 30 Days - Family History Known Family History: Positive: Cardiac Disease - Social History Alcohol Use: None Substance Use Type: Reports: None Hx Tobacco Use: Yes Smoking Status (MU): Former Smoker Type: Cigarettes Have You Smoked in the Last Year: No Review of Systems Negative: Fever, Chills Respiratory: Negative Gastrointestinal: Negative Genitourinary: Negative Skin: Other - wound on left foot All Other Systems Reviewed And Are Negative: Yes Physical Exam - Summary Physical Exam Summary: VITAL SIGNS: Reviewed. GENERAL: Patient is a well-developed and nourished male who is lying comfortable in the stretcher. Patient is not in any acute respiratory distress. HEAD AND FACE: No signs of trauma. No ecchymosis, hematomas or skull depressions. No sinus tenderness. EYES: PERRLA, EOMI x 2, No injected conjunctiva, no nystagmus. EARS: Hearing grossly intact. Ear canals and tympanic membranes are within normal limits. MOUTH: Oropharynx within normal limits. NECK: Supple, trachea is midline, no adenopathy, no JVD, no carotid bruit, no c- spine tenderness, neck with full ROM. CHEST: Symmetric, no tenderness at palpation LUNGS: Clear to auscultation bilaterally. No wheezing or crackles. CVS: Regular rate and rhythm, S1 and S2 present, no murmurs or gallops appreciated. ABDOMEN: Soft, non-tender. No signs of distention. No rebound no guarding, and no masses palpated. Bowel sounds are normal. EXTREMITIES: FROM in all major joints, no edema, no cyanosis or clubbing. LLE: pt has a wound on the left dorsal aspect of the foot with surrounding cellulitis extending down to the toe. NEURO: Alert and oriented x 3. No acute neurological deficits. Speech is normal and follows commands. SKIN: Dry and warm Triage Information Reviewed: Yes Vital Signs On Initial Exam: Initial Vitals Temp Pulse Resp BP Pulse Ox 97 F 65 16 134/76 92 11/17/17 12:03 11/17/17 12:03 11/17/17 12:03 11/17/17 12:03 11/17/17 12:03 Vital Signs Reviewed: Yes Diagnostics - Vital Signs Vital Signs Temp Pulse Resp BP Pulse Ox 11/17/17 13:37 97.5 F 61 16 134/84 95 11/17/17 12:03 97 F 65 16 134/76 92 - Laboratory Lab Results: Lab Results 11/17/17 11/17/17 11/17/17 Range/Units 12:35 12:35 12:35 WBC 8.7 (3.5-10.8) 10^3/ul RBC 4.28 (4.0-5.4) 10^6/ul Hgb 12.9 L (14.0-18.0) g/dl Hct 38 L (42-52) % MCV 88 (80-94) fL MCH 30 (27-31) pg MCHC 34 (31-36) g/dl RDW 15 (10.5-15) % Plt Count 251 (150-450) 10^3/ul MPV 8 (7.4-10.4) um3 Neut % (Auto) 67.5 (38-83) % Lymph % (Auto) 17.1 L (25-47) % [place] % (Auto) 12.1 H (1-9) % Eos % (Auto) 2.4 (0-6) % Baso % (Auto) 0.9 (0-2) % Absolute Neuts (auto) 5.9 (1.5-7.7) 10^3/ul Absolute Lymphs (auto) 1.5 (1.0-4.8) 10^3/ul Absolute Monos (auto) 1.1 H (0-0.8) 10^3/ul Absolute Eos (auto) 0.2 (0-0.6) 10^3/ul Absolute Basos (auto) 0.1 (0-0.2) 10^3/ul Absolute Nucleated RBC 0 10^3/ul Nucleated RBC % 0.2 INR (Anticoag Therapy) 0.91 (0.77-1.02) APTT 29.2 (26.0-36.3) seconds Sodium 130 L (133-145) mmol/L Potassium 4.3 (3.5-5.0) mmol/L Chloride 98 L (101-111) mmol/L Carbon Dioxide 25 (22-32) mmol/L Anion Gap 7 (2-11) mmol/L BUN 20 (6-24) mg/dL Creatinine 1.22 H (0.67-1.17) mg/dL Est GFR ( Amer) 72.6 (>60) Est GFR (Non-Af Amer) 56.5 (>60) BUN/Creatinine Ratio 16.4 (8-20) Glucose 245 H (70-100) mg/dL Lactic Acid (0.5-2.0) mmol/L Calcium 9.7 (8.6-10.3) mg/dL Total Bilirubin 0.70 (0.2-1.0) mg/dL AST 16 (13-39) U/L ALT 15 (7-52) U/L Alkaline Phosphatase 85 (34-104) U/L Total Protein 6.5 (6.4-8.9) g/dL Albumin 3.8 (3.2-5.2) g/dL Globulin 2.7 (2-4) g/dL Albumin/Globulin Ratio 1.4 (1-3) /09/22 Range/Units 12:35 WBC (3.5-10.8) 10^3/ul RBC (4.0-5.4) 10^6/ul Hgb (14.0-18.0) g/dl Hct (42-52) % MCV (80-94) fL MCH (27-31) pg MCHC (31-36) g/dl RDW (10.5-15) % Plt Count (150-450) 10^3/ul MPV (7.4-10.4) um3 Neut % (Auto) (38-83) % Lymph % (Auto) (25-47) % [place] % (Auto) (1-9) % Eos % (Auto) (0-6) % Baso % (Auto) (0-2) % Absolute Neuts (auto) (1.5-7.7) 10^3/ul Absolute Lymphs (auto) (1.0-4.8) 10^3/ul Absolute Monos (auto) (0-0.8) 10^3/ul Absolute Eos (auto) (0-0.6) 10^3/ul Absolute Basos (auto) (0-0.2) 10^3/ul Absolute Nucleated RBC 10^3/ul Nucleated RBC % INR (Anticoag Therapy) (0.77-1.02) APTT (26.0-36.3) seconds Sodium (133-145) mmol/L Potassium (3.5-5.0) mmol/L Chloride (101-111) mmol/L Carbon Dioxide (22-32) mmol/L Anion Gap (2-11) mmol/L BUN (6-24) mg/dL Creatinine (0.67-1.17) mg/dL Est GFR ( Amer) (>60) Est GFR (Non-Af Amer) (>60) BUN/Creatinine Ratio (8-20) Glucose (70-100) mg/dL Lactic Acid 2.5 H* (0.5-2.0) mmol/L Calcium (8.6-10.3) mg/dL Total Bilirubin (0.2-1.0) mg/dL AST (13-39) U/L ALT (7-52) U/L Alkaline Phosphatase (34-104) U/L Total Protein (6.4-8.9) g/dL Albumin (3.2-5.2) g/dL Globulin (2-4) g/dL Albumin/Globulin Ratio (1-3) Result Diagrams: 11/17/17 12:35 11/17/17 12:35 Lab Statement: Any lab studies that have been ordered have been reviewed, and results considered in the medical decision making process. Lower Extremity Course/Dx - Course Assessment/Plan: This pt is a 87 y/o male presenting to [facility] for a possible left foot infection for the past 2 days. reports the pt fractured his left ankle on 11/04/17 and was placed on a cam boot. Per , pt notes the pt's left foot started to look "strange" 2 days ago on Friday. Pt saw Dr. Bryan, orthopedist, today and was told to come to the ED for admission and IV antibiotics. denies fever. Test results shows chronic anemia, creatinine of 1.22, lactic acid of 2.5. The pt was started on IV fluids and Rocephin for the wound infection and cellulitis. Since the pt was sent from Dr. Bryan from orthopedics for IV antibiotics and admission, I discussed the pts case with Dr. Crump, hospitalist, who accepted the pt for admission. Pt is hemodynamically stable, alert and oriented x3. - Diagnoses Provider Diagnoses: Cellulitis - Physician Notifications Discussed Care Of Patient With: Maurisio Crump Time Discussed With Above Provider: 15:02 Instructed by Provider To: Other - I discussed pt care with Dr. Ridge, hospitalist, who has agreed to admit the pt. Discharge - Discharge Plan Condition: Stable Disposition: ADMITTED TO [facility] Referrals: Ed Blevins MD [Primary Care Provider] - The documentation as recorded by the Nomi herman Angela accurately reflects the service I personally performed and the decisions made by me, Migel Salcido MD.
[2017-11-19] MEDS: Cholecalciferol TAB* 1000 UNITS PO SCH (08:58)
[2017-11-19] MEDS: CMCS Solifenacin(NF) 5 MG TAB PO SCH (08:58)
[2017-11-19] MEDS: Hydrochlorothiazide TAB* 25 MG PO SCH (08:58)
[2017-11-19] MEDS: Calcium Carbonate CHEW TAB* 500 MG (TUMS) PO SCH (08:58)
[2017-11-19] MEDS: CMCS Pantoprazole TAB (NF) 40 MG TAB PO SCH (08:58)
[2017-11-19] MEDS: Ferrous Sulfate TAB* 325 MG PO SCH (08:59)
[2017-11-19] MEDS: Aspirin EC Low Dose* 81 MG TAB.EC PO SCH (08:59)
[2017-11-19] MEDS: Metoprolol Tartrate TAB* 25 MG PO SCH (08:59)
[2017-11-19] MEDS: Potassium Chlor TAB* 20 MEQ TAB.ER PO SCH (08:59)
[2017-11-19] MEDS: Clopidogrel TAB* 75 MG PO SCH (08:59)
[2017-11-19] MEDS: Ascorbic Acid TAB* 500 MG PO SCH (08:59)
[2017-11-19 11:39] VITALS: BP 144/65
--- NOTE | 2017-11-19 13:02 | PN ---
Progress Note - Progress Note Date of Service: 11/19/17 SOAP: Subjective: []Patient seen at bedside. He is comfortable with no pain of LLE. Denies fever, chills, nausea, dizziness, CP, SOB Objective: [] Vital Signs Temp 97.9 F 11/19/17 11:33 Pulse 66 11/19/17 11:33 Resp 18 11/19/17 11:33 BP 144/65 11/19/17 11:33 Pulse Ox 95 11/19/17 11:33 Intake & Output 11/18/17 11/19/17 11/19/17 18:59 06:59 18:59 Intake Total 1640 345 230 Output Total 250 700 Balance 1390 -355 230 Intake: IV Fluids 0 NS (0.9%) 0 IVPB 105 ABX - CEFAZOLIN 105 Oral 1640 240 230 Output: Urine 250 700 Other: Estimated Void Large # Bowel Movements 1 0 Estimated Stool Amount Small # Voids 2 1 Laboratory Last Values WBC 5.5 10^3/ul (3.5-10.8) 11/18/17 05:57 RBC 4.13 10^6/ul (4.0-5.4) 11/18/17 05:57 Hgb 12.2 g/dl (14.0-18.0) L 11/18/17 05:57 Hct 36 % (42-52) L 11/18/17 05:57 MCV 87 fL (80-94) 11/18/17 05:57 MCH 30 pg (27-31) 11/18/17 05:57 MCHC 34 g/dl (31-36) 11/18/17 05:57 RDW 15 % (10.5-15) 11/18/17 05:57 Plt Count 188 10^3/ul (150-450) 11/18/17 05:57 MPV 8 um3 (7.4-10.4) 11/18/17 05:57 Neut % (Auto) 62.1 % (38-83) 11/18/17 05:57 Lymph % (Auto) 20.6 % (25-47) L 11/18/17 05:57 [place] % (Auto) 12.3 % (1-9) H 11/18/17 05:57 Eos % (Auto) 4.0 % (0-6) 11/18/17 05:57 Baso % (Auto) 1.0 % (0-2) 11/18/17 05:57 Absolute Neuts (auto) 3.4 10^3/ul (1.5-7.7) 11/18/17 05:57 Absolute Lymphs (auto) 1.1 10^3/ul (1.0-4.8) 11/18/17 05:57 Absolute Monos (auto) 0.7 10^3/ul (0-0.8) 11/18/17 05:57 Absolute Eos (auto) 0.2 10^3/ul (0-0.6) 11/18/17 05:57 Absolute Basos (auto) 0.1 10^3/ul (0-0.2) 11/18/17 05:57 Absolute Nucleated RBC 0 10^3/ul 11/18/17 05:57 Nucleated RBC % 0.1 11/18/17 05:57 INR (Anticoag Therapy) 0.91 (0.77-1.02) 11/17/17 12:35 APTT 29.2 seconds (26.0-36.3) 11/17/17 12:35 Sodium 132 mmol/L (133-145) L 11/18/17 05:57 Potassium 4.1 mmol/L (3.5-5.0) 11/18/17 05:57 Chloride 101 mmol/L (101-111) 11/18/17 05:57 Carbon Dioxide 25 mmol/L (22-32) 11/18/17 05:57 Anion Gap 6 mmol/L (2-11) 11/18/17 05:57 BUN 16 mg/dL (6-24) 11/18/17 05:57 Creatinine 1.11 mg/dL (0.67-1.17) 11/18/17 05:57 Est GFR ( Amer) 81.0 (>60) 11/18/17 05:57 Est GFR (Non-Af Amer) 63.0 (>60) 11/18/17 05:57 BUN/Creatinine Ratio 14.4 (8-20) 11/18/17 05:57 Glucose 138 mg/dL (70-100) H 11/18/17 05:57 POC Glucose (mg/dL) 172 mg/dL (70-100) H 11/19/17 11:32 Lactic Acid 1.8 mmol/L (0.5-2.0) 11/17/17 16:45 Calcium 8.8 mg/dL (8.6-10.3) 11/18/17 05:57 Total Bilirubin 0.70 mg/dL (0.2-1.0) 11/17/17 12:35 AST 16 U/L (13-39) 11/17/17 12:35 ALT 15 U/L (7-52) 11/17/17 12:35 Alkaline Phosphatase 85 U/L (34-104) 11/17/17 12:35 C-Reactive Protein 14.04 mg/L (< 5.00) H 11/17/17 12:35 Total Protein 6.5 g/dL (6.4-8.9) 11/17/17 12:35 Albumin 3.8 g/dL (3.2-5.2) 11/17/17 12:35 Globulin 2.7 g/dL (2-4) 11/17/17 12:35 Albumin/Globulin Ratio 1.4 (1-3) 11/17/17 12:35 General: Well appearing, NAD LLE: cast in place. Edema and erythema of left great toe/ forefoot significantly reduced from yesterday. No streaking of erythema. Small superficial ulcer remains present, healing well without surrounding erythema and without drainage. Lacks sensation to light touch distally. Capillary refill less than two seconds distally. Assessment: []Cellulitis left foot Plan: []NWB LLE Continue abx per ID with recommendation of Ancef then clindamycin PO x 10 days
--- NOTE | 2017-11-19 13:17 | PN ---
Subjective Date of Service: 11/19/17 Interval History: No complaints, Denies chest pain or shortness of breath. Denies abd pain, n/v/ d. Family History: Unchanged from Admission Social History: Unchanged from Admission Past Medical History: Unchanged from Admission Objective Active Medications: Acetaminophen (Tylenol Tab*) 650 mg PO Q4H PRN PRN Reason: FEVER/PAIN Al Hydrox/Mg Hydrox/Simethicone (Maalox Plus*) 30 ml PO Q6H PRN PRN Reason: INDIGESTION Albuterol (Ventolin 2.5 Mg/3 Ml Neb.Shayla*) 2.5 mg INH [id number] AWAKE PRN PRN Reason: sob/wheezing Albuterol (Ventolin Hfa Inhaler*) 2 puff INH Q4H PRN PRN Reason: SOB/WHEEZING Ascorbic Acid (Vitamin C Tab*) 500 mg PO DAILY [facility] Last Admin: 11/19/17 08:59 Dose: 500 mg Aspirin (Aspirin Ec Low Dose*) 81 mg PO QAM [facility] Last Admin: 11/19/17 08:59 Dose: 81 mg Atorvastatin Calcium (Lipitor*) 80 mg PO 1700 [facility] Last Admin: 11/18/17 17:26 Dose: 80 mg Calcium Carbonate (Tums*) 1,000 mg PO DAILY [facility] Last Admin: 11/19/17 08:58 Dose: 1,000 mg Cholecalciferol (Vitamin D Tab*) [facility] Last Admin: 11/19/17 08:58 Dose: 1,000 units Clopidogrel Bisulfate (Plavix Tab*) 75 mg PO QAM [facility] Last Admin: 11/19/17 08:59 Dose: 75 mg Dextrose (D50w Syringe 50 Ml*) 12.5 gm IV PUSH .FOR FS < 60 - SS PRN PRN Reason: FS < 60 Ferrous Sulfate (Ferrous Sulfate Tab*) 325 mg PO DAILY [facility] Last Admin: 11/19/17 08:59 Dose: 325 mg Heparin Sodium (Porcine) (Heparin Vial(*)) 5,000 units SUBCUT Q8HR [facility] Last Admin: 11/19/17 05:31 Dose: 5,000 units Hydrochlorothiazide (Hydrodiuril Tab*) 25 mg PO QAM [facility] Last Admin: 11/19/17 08:58 Dose: 25 mg Cefazolin Sodium 1 gm/ (Dextrose) 50 mls @ 200 mls/hr IVPB Q8H [facility] Last Admin: 11/19/17 05:26 Dose: 200 mls/hr Insulin Glargine (Lantus(*)) 24 units SUBCUT QPM [facility] Last Admin: 11/18/17 17:25 Dose: 24 units Insulin Human Lispro (Humalog*) 0 units SUBCUT AC [facility] PRN Reason: Protocol Last Admin: 11/19/17 08:31 Dose: Not Given Losartan Potassium (Cozaar Tab*) 50 mg PO QPM [facility] Last Admin: 11/18/17 17:25 Dose: 50 mg Magnesium Hydroxide (Milk Of Magnesia Liq*) 30 ml PO Q4H PRN PRN Reason: CONSTIPATION Metoprolol Tartrate (Lopressor Tab*) 25 mg PO BID WITH MEALS [facility] Last Admin: 11/19/17 08:59 Dose: 25 mg Mometasone Furoate/Formoterol Fumar (Dulera 200/5 Mdi*) 2 puff INH BID [facility] Last Admin: 11/19/17 07:48 Dose: 2 puff Montelukast Sodium (Singulair Tab*) 10 mg PO BEDTIME [facility] Last Admin: 11/18/17 21:26 Dose: 10 mg Ondansetron HCl (Zofran Inj*) 4 mg IV Q4H PRN PRN Reason: NAUSEA/VOMITING Pantoprazole Sodium (Protonix Tab (Nf)) 40 mg PO DAILY [facility] Last Admin: 11/19/17 08:58 Dose: 40 mg Potassium Chloride (Klor Con Er Tab*) 20 meq PO QAM [facility] Last Admin: 11/19/17 08:59 Dose: 20 meq Solifenacin (Vesicare(Nf)) 10 mg PO QAM [facility] Last Admin: 11/19/17 08:58 Dose: 10 mg Vital Signs - 8 hr 11/19/17 11/19/17 11/19/17 07:35 07:49 08:00 Temperature 98.1 F Pulse Rate 70 73 Respiratory 18 14 20 Rate Blood Pressure 161/84 (mmHg) O2 Sat by Pulse 94 95 Oximetry 11/19/17 11:33 Temperature 97.9 F Pulse Rate 66 Respiratory 18 Rate Blood Pressure 144/65 (mmHg) O2 Sat by Pulse 95 Oximetry Oxygen Devices in Use Now: None Appearance: appears comfortable Eyes: No Scleral Icterus Ears/Nose/Mouth/Throat: Clear Oropharnyx, Mucous Membranes Moist Neck: NL Appearance and Movements; NL JVP, Trachea Midline Respiratory: Symmetrical Chest Expansion and Respiratory Effort, Clear to Auscultation Cardiovascular: NL Sounds; No Murmurs; No JVD, No Edema Abdominal: NL Sounds; No Tenderness; No Distention Extremities: No Edema, No Clubbing, Cyanosis Skin: - - swelling and erythema improved to left great toe and dorsal aspect of left foot. small ulcer noted at the base of the dorsal aspect of the left great toe, non draining Neurological: Alert and Oriented x 3 Nutrition: Taking PO's Result Diagrams: 11/18/17 05:57 11/18/17 05:57 Additional Lab and Data: Lab Results 11/17/17 11/17/17 11/17/17 Range/Units 12:35 12:35 12:35 WBC 8.7 (3.5-10.8) 10^3/ul RBC 4.28 (4.0-5.4) 10^6/ul Hgb 12.9 L (14.0-18.0) g/dl Hct 38 L (42-52) % MCV 88 (80-94) fL MCH 30 (27-31) pg MCHC 34 (31-36) g/dl RDW 15 (10.5-15) % Plt Count 251 (150-450) 10^3/ul MPV 8 (7.4-10.4) um3 Neut % (Auto) 67.5 (38-83) % Lymph % (Auto) 17.1 L (25-47) % [place] % (Auto) 12.1 H (1-9) % Eos % (Auto) 2.4 (0-6) % Baso % (Auto) 0.9 (0-2) % Absolute Neuts (auto) 5.9 (1.5-7.7) 10^3/ul Absolute Lymphs (auto) 1.5 (1.0-4.8) 10^3/ul Absolute Monos (auto) 1.1 H (0-0.8) 10^3/ul Absolute Eos (auto) 0.2 (0-0.6) 10^3/ul Absolute Basos (auto) 0.1 (0-0.2) 10^3/ul Absolute Nucleated RBC 0 10^3/ul Nucleated RBC % 0.2 INR (Anticoag Therapy) 0.91 (0.77-1.02) APTT 29.2 (26.0-36.3) seconds Sodium 130 L (133-145) mmol/L Potassium 4.3 (3.5-5.0) mmol/L Chloride 98 L (101-111) mmol/L Carbon Dioxide 25 (22-32) mmol/L Anion Gap 7 (2-11) mmol/L BUN 20 (6-24) mg/dL Creatinine 1.22 H (0.67-1.17) mg/dL Est GFR ( Amer) 72.6 (>60) Est GFR (Non-Af Amer) 56.5 (>60) BUN/Creatinine Ratio 16.4 (8-20) Glucose 245 H (70-100) mg/dL Lactic Acid (0.5-2.0) mmol/L Calcium 9.7 (8.6-10.3) mg/dL Total Bilirubin 0.70 (0.2-1.0) mg/dL AST 16 (13-39) U/L ALT 15 (7-52) U/L Alkaline Phosphatase 85 (34-104) U/L Total Protein 6.5 (6.4-8.9) g/dL Albumin 3.8 (3.2-5.2) g/dL Globulin 2.7 (2-4) g/dL Albumin/Globulin Ratio 1.4 (1-3) /09/22 Range/Units 12:35 WBC (3.5-10.8) 10^3/ul RBC (4.0-5.4) 10^6/ul Hgb (14.0-18.0) g/dl Hct (42-52) % MCV (80-94) fL MCH (27-31) pg MCHC (31-36) g/dl RDW (10.5-15) % Plt Count (150-450) 10^3/ul MPV (7.4-10.4) um3 Neut % (Auto) (38-83) % Lymph % (Auto) (25-47) % [place] % (Auto) (1-9) % Eos % (Auto) (0-6) % Baso % (Auto) (0-2) % Absolute Neuts (auto) (1.5-7.7) 10^3/ul Absolute Lymphs (auto) (1.0-4.8) 10^3/ul Absolute Monos (auto) (0-0.8) 10^3/ul Absolute Eos (auto) (0-0.6) 10^3/ul Absolute Basos (auto) (0-0.2) 10^3/ul Absolute Nucleated RBC 10^3/ul Nucleated RBC % INR (Anticoag Therapy) (0.77-1.02) APTT (26.0-36.3) seconds Sodium (133-145) mmol/L Potassium (3.5-5.0) mmol/L Chloride (101-111) mmol/L Carbon Dioxide (22-32) mmol/L Anion Gap (2-11) mmol/L BUN (6-24) mg/dL Creatinine (0.67-1.17) mg/dL Est GFR ( Amer) (>60) Est GFR (Non-Af Amer) (>60) BUN/Creatinine Ratio (8-20) Glucose (70-100) mg/dL Lactic Acid 2.5 H* (0.5-2.0) mmol/L Calcium (8.6-10.3) mg/dL Total Bilirubin (0.2-1.0) mg/dL AST (13-39) U/L ALT (7-52) U/L Alkaline Phosphatase (34-104) U/L Total Protein (6.4-8.9) g/dL Albumin (3.2-5.2) g/dL Globulin (2-4) g/dL Albumin/Globulin Ratio (1-3) Assess/Plan/Problems-Billing Assessment: Mr. Simmons is an 87 y.o male that presented to the Emergency room with cellulitis to the left foot and ulceration. Pt recently fractured his left ankle, non operative fracture that was casted on 11/05/2017. was seen at Dr. Bryan's office sent for further evaluation - Patient Problems (1) Cellulitis, toe Status: Acute Code(s): L03.039 - CELLULITIS OF UNSPECIFIED TOE SNOMED Code(s ): 91192127 Comment: Left great toe/ foot cellulitis/ ulcer~ improved will continue ancef 1 gram Q 8 possible osteomylitis on the MRI ID consulted~ will continue ancef and will start clindamycin for 10 days at discharge. (2) COPD with acute bronchitis Status: Acute Code(s): J44.0 - CHRONIC OBSTRUCTIVE PULMON DISEASE W ACUTE LOWER RESP INFCT SNOMED Code(s): 859614786193985 Comment: stable ~ will continue on home medications singulair, dulera, albuterol inhaler Albuterol nebs as needed for wheezing (3) History of hypertension Status: Chronic Priority: Medium Code(s): Z86.79 - PERSONAL HISTORY OF OTHER DISEASES OF THE CIRCULATORY SYSTEM SNOMED Code(s): 040351642 Comment: Continue home medications (4) Hx of heart artery stent Status: Chronic Priority: Medium Code(s): Z95.5 - PRESENCE OF CORONARY ANGIOPLASTY IMPLANT AND GRAFT SNOMED Code(s): 650075164 Comment: LAD X'S 2 2003 continue plavix (5) Type 2 diabetes mellitus Status: Chronic Comment: - Continue Lantus, Lispro SS Blood glucose 145 this AM (6) Full code status Status: Acute Code(s): Z78.9 - OTHER SPECIFIED HEALTH STATUS SNOMED Code(s) : 201902664 (7) DVT prophylaxis Status: Acute Code(s): CHY5729 - SNOMED Code(s): 305688037 Comment: HSQ. Status and Disposition: improved will discharge home
--- NOTE | 2017-11-20 13:11 | DS ---
CC: Dr. Bryan; Dr. Blevins * DATE OF ADMISSION: 11/17/2017. DATE OF DISCHARGE: 11/19/2017. ATTENDING PHYSICIAN: Dr. Nallely Collins * (dictated by Margo Vickers NP). PRIMARY CARE PHYSICIAN: Dr. Blevins. PRINCIPAL DIAGNOSIS: Cellulitis. SECONDARY DIAGNOSES: 1. Hypertension. 2. Left ankle fracture on 11/04/2017. 3. CVA, October 2016. 4. GI bleed, October 2016. 5. Diabetes. 6. PR times two with five stents. 7. Prostate cancer in 2006. STUDIES COMPLETED WHILE IN THE HOSPITAL: He had an MRI of his left foot: Impression: Subjacent to a probable soft tissue ulcer, there is signal change at the medial margin of the head of the first metatarsal consistent with osteomyelitis given the clinical context. Extensive superficial and deep soft tissue edema/inflammation. No loculated abscess collection evident. He did see Dr. Bryan during his stay. Imaging was reviewed by Dr. Bryan and felt like this was more likely reactive. Dr. Mccracken also was consulted on this case. He reviewed the superficial ulceration to the left medial forefoot with associated cellulitis. He suspects strep as a primary pathogen. He reviewed the MRI and subtle partial loss of normal T1 marrow hyperintensity. He does not believe that there is osteomyelitis given the course and relatively minor ulceration. He recommended to continue Ancef while in the hospital and with continued improvement he can be discharged on Clindamycin to complete a ten day course with close follow-up of his foot. DISCHARGE MEDICATIONS: 1. Clindamycin 300 mg t.i.d. for 9 more days. 2. Lactobacillus acidophilus one tablet p.o. daily times 30 days. Continued home medications: 1. Ferrous Sulfate 325 mg p.o. daily. 2. Vitamin C 500 mg p.o. daily. 3. Tums 1,000 mg p.o. daily. 4. Albuterol HFA inhaler two puffs inhaled q.4 hours as needed for shortness of breath. 5. Acetaminophen 500 mg p.o. q.6 hours as needed for pain. 6. Vesicare 10 mg p.o. daily. 7. Singular 10 mg p.o. at bedtime. 8. Dulera 200/5 MDI two puffs b.i.d. 9. Lantus 24 units subcu p.m. 10. Atorvastatin 80 mg p.o. q.p.m. 11. Potassium Chloride 20 mEq p.o. daily. 12. Metoprolol 25 mg p.o. b.i.d. 13. Cozaar 50 mg p.o. daily. 14. Glipizide 2.5 mg p.o. daily. 15. Vitamin D 1,000 units p.o. q.a.m. 16. Hydrochlorothiazide 25 mg p.o. q.a.m. 17. Clopidogrel 75 mg p.o. q.a.m. 18. Enteric coated aspirin 81 mg p.o. q.a.m. 19. Prevacid 30 mg p.o. daily. HISTORY OF PRESENT ILLNESS AND HOSPITAL COURSE: Mr. Simmons is an 87-year-old male who carries a history of COPD and CVA in 2017. Subsequently, he had a GI bleed at that time, diabetes, hypertension, PR times two with five stents, and prostate cancer in 2006 with a prostatectomy. He comes to the emergency room after being sent to the ER by his doctor, Dr. Bryan, who he was seeing in the office for redness and swelling to his left great toe. He currently is in a cast from his knee to his foot for treatment of a recent ankle fracture. At the office the cast was removed and he was found to have a small open area on the dorsal aspect of the left great toe with surrounding tissue with redness. He was sent to the emergency room for further evaluation. While in the emergency room, he had serial lab work drawn and was given 1 gm of Ceftriaxone. We were contacted by the emergency room for admission for left foot cellulitis and open wound. The patient denies any pain to this left foot and states that he does not have a lot of feeling in his foot due to his diabetic neuropathy. The reports that yesterday his left great toe was swollen, but there was no redness, and then when they awoke this morning she noticed that it was red and swollen. She took him to the doctor to be seen and subsequently he was sent to the emergency room for IV antibiotics and admission. He denies any chest pain, shortness of breath. He denies any fever, chills, nausea, vomiting, or diarrhea. He denies any recent illnesses. While in the hospital, he was continued on IV antibiotics. We placed him on Ancef 1 gm every eight hours. The redness and swelling to his left great toe and foot improved greatly with the IV antibiotics. The swelling was minimal today during exam and the redness was minimal also. Due to the significant improvement in redness and swelling to his left foot, he will be stable for discharge home and continued on p.o. antibiotics. Mr. Simmons will be discharged home today. Vital signs are as follows: Temperature 97.9, heart rate 66, respirations 18, O2 saturation 95 percent, blood pressure 144/65. DISCHARGE PLAN: Mr. Simmons will be discharged back home today. Activity as tolerated. Minimal weightbearing to the left foot. He will be placed on Clindamycin 300 mg t.i.d. for the next nine days. He should follow-up with Dr. Bryan on Friday for a recheck of his wound and cellulitis. He was instructed to call the office tomorrow to make an appointment. The patient verbalized understanding. The patient was instructed to return to the emergency room for any fevers, chills, any increased redness or drainage, or increased swelling to his left foot. The patient and his verbalized understanding. He was also prescribed a probiotic to take one daily for the next 30 days. The patient was instructed to continue all of his regular home medications as previously prescribed. Again, he should follow-up with Dr. Bryan on Friday and needs to call the office for an appointment tomorrow. This is a summary of his hospitalization. For further details, please see the entire medical record. TIME SPENT: Time spent on this discharge was approximately 60 minutes, greater than half that time was spent with the patient and his discussing discharge plans and follow-up instructions. CONDITION AT DISCHARGE: Stable. MARGO VICKERS, GABE [id number]/[facility] #: [id number] MARCELO
== END 2017-11-19 15:02 | disposition home or self-care (01) | DRG 603 ==
LOC: ED 12:02 → MED 18:01
PROVIDERS: ADMIT Internal Medicine; ATTEND Internal Medicine
DX: L03.032 Cellulitis of left toe (principal); E11.42 Type 2 diabetes mellitus with diabetic polyneuropathy; E11.621 Type 2 diabetes mellitus with foot ulcer; L03.116 Cellulitis of left lower limb; B95.5 Unspecified streptococcus as the cause of diseases classified elsewhere; J20.9 Acute bronchitis, unspecified; L97.529 Non-pressure chronic ulcer of other part of left foot with unspecified severity; J44.9 Chronic obstructive pulmonary disease, unspecified; I25.10 Atherosclerotic heart disease of native coronary artery without angina pectoris; S82.892D Other fracture of left lower leg, subsequent encounter for closed fracture with routine healing; W19.XXXD Unspecified fall, subsequent encounter; I11.9 Hypertensive heart disease without heart failure; Z86.73 Personal history of transient ischemic attack (TIA), and cerebral infarction without residual deficits; Z95.5 Presence of coronary angioplasty implant and graft; Z85.46 Personal history of malignant neoplasm of prostate; Z79.1 Long term (current) use of non-steroidal anti-inflammatories (NSAID); Z79.82 Long term (current) use of aspirin; Z79.4 Long term (current) use of insulin; Z79.899 Other long term (current) drug therapy; Z88.8 Allergy status to other drugs, medicaments and biological substances; Z91.013 Allergy to seafood; Z82.49 Family history of ischemic heart disease and other diseases of the circulatory system; Z83.3 Family history of diabetes mellitus; Z87.891 Personal history of nicotine dependence; Z79.01 Long term (current) use of anticoagulants; E78.00 Pure hypercholesterolemia, unspecified
CPT/HCPCS: 36415; 80048; 80053; 83605; 85025; 85610; 85730; 86140; 87040; 94640; 99284; A9270-GY; J0690; J0696; J1644

== ENCOUNTER 2017-12-15 13:25 | Emergency (ER) | payer MEDICARE ==
--- OUTSIDE RECORDS SUMMARY | 2017-12-15 13:32 | XMS REPORT ---
:1930 External Reference #:[id number] Author Organization [place] [facility] Address [address] [address] Phone [phone] Care Team Providers Name Role Phone Ed Blevins MD Primary Care Physician Unavailable Payers Type Date Identification Payment Subscriber Numbers Provider Health Maintenance Effective: Policy Number: Medicare Blue Shar Simmosn [facility] [place] 10/06/2012 [id number] o Group Number: [id number] [address] PayID: [id number] SINDI Andino [address] Health Maintenance Effective: Policy Number: Medicare Abelardo Chaves C-sam ([facility] 10/06/2009 [id number] [facility] [place] Expires: 10/06/2012 PayID: [id number] [address] [address] SINDI Andino [address] Problems Date Description Provider Status Onset: 12/20/2011 Electrocardiogram abnormal Caterina Guidry M.D. Onset: 12/20/2011 Coronary arteriosclerosis Caterina Guidry M.D. Onset: 12/20/2011 Benign essential hypertension Caterina Guidry M.D. Onset: 12/20/2011 Right bundle branch block Caterina Guidry M.D. Onset: 06/30/2013 Hyperlipidemia Caterina Guidry M.D. Onset: 03/07/2014 Dyspnea Caterina Guidry.D. Onset: 11/17/2017 Cellulitis of foot Paddy Bryan MD Active Onset: 11/17/2017 Type 2 diabetes mellitus with ulcer Paddy Bryan MD Active Family History Date Family Member(s) Problem(s) Comments General Diabetes General Heart Disease General Hypertension General Cancer : (age 69 Years) Father due to [place] : (age 64 Years) Mother due to [...] Tablets ER 2.5mg 90tabs 1 by mouth Rick Blevins 24HR every day Ed Elizondo as directed Tums 02/24/ Active Chewtabs 500mg two qd Stu 2008 Larisa Nicholas M.D. HCTZ 02/24/ Active 25mg. 90unit 1 PO qd Stu 2007 s Larisa Nicholas M.D. Nitroquick 02/24/ Active Tablets 0.4mg 25tabs 1 S/L prn Stu 2007 Sub Chest S. Pain, Q 5 Cristopher Min. Up To , M.DAngela 3 Tabs Plavix / Active Tablets 75mg [...] Unknown 0000 every day ( [place] [facility] [place] Ferrous Sulfate / Active Tablets 325mg 1 by mouth Unknown 0000 every day( started 03/28/17 [facility] [place] Klor-Con M20 / Active Tablets ER 20Meq 1 by mouth Unknown 0000 every day Irbesartan 07/11/ Hx Tablets 150mg 1 by mouth Felicity, 2013 - every day Ed Elizondo, 11/26/ as 2016 directed Simvastatin 06/20/ Hx Tablets 40mg 90tabs 1 po qd Felicity 2013 - Ed Elizondo 11/26/ 2016 Qvar 03/07/ Hx Aerosol 1units 2 puffs Stu 2013 - twice a S. 11/11/ day Cristopher Haney M.D. Aspirin 11/18/ Hx Tablets 325mg 1 po qd Qutaybcresencio 2008 - S. 09/14/ Cristopher Cabrera M.D. Plavix 02/24/ Hx Tablets 75mg 90tabs 1 PO qd Qutaybcresencio 2007 - S. 05/11/ Cristopher Vallejo M.D. Vit D 02/24/ Hx one qd Garytaybcresencio 2007 - S. 09/14/ Cristopher Cabrera M.D. Aspirin 02/24/ Hx Tablets 325mg 1-2 PO qd Garytaybeh 2007 - S. 11/18/ Jeanette Camacho.D. Avapro 02/24/ Hx Tablets 150mg 90tabs 1 PO qd tayb 2007 - S. 09/14/ [facility] Lipitor 02/24/ Hx Tablets 40mg 90tabs 1/2tab qhs Qutayb 2007 - S. 05/13/ jose 2010 Cir[facility] Claritin 02/24/ Hx Tablets 10mg 30tabs PO qd prn Qutayb 2007 - S. 11/18/ [facility] Metoprolol 02/24/ Hx Tablets 50mg 30tabs one half tayb 2007 - bid S. 03/02/ [facility] Advair Diskus 02/24/ Hx Misc 500/50 1 puff bid tayb 2007 - S. 03/07/ [facility] Proventil HFA / Hx Aerosol 108(90Base [...] 2016 Vital Signs Date Vital Result Comment 12/12/2017 Height 70 inches 5'10" Heart Rate 66 /min BP Systolic 110 mmHg BP Diastolic 80 mmHg Respiratory Rate 16 /min Body Temperature 97.3 F Pain Level 3 11/28/2017 Height 70 inches 5'10" Weight 187.00 lb Heart Rate 66 /min Respiratory Rate 22 /min Body Temperature 97.9 F Pain Level 0 BMI (Body Mass Index) 26.8 kg/m2 11/21/2017 Height 70 inches 5'10" Weight 187.00 lb Heart Rate 66 /min Respiratory Rate 18 /min Body Temperature 97.7 F Pain Level 0 BMI (Body Mass Index) 26.8 kg/m2 11/17/2017 Height 70 inches 5'10" Weight 187.00 [...] Test Result H/L Range Note Laboratory test finding 11/25/2017 Lactic Acid 1.9 mmol/L 0.5-2.0 1 Hemoglobin A1c 6.6 % High 4.0-5.6 2 Laboratory test finding 09/18/2015 Point of Care Glucose 243 mg/dL High 74 -106 3 Laboratory test finding 08/17/2015 PSA Diagnostic 0.079 ng/mL 0-4.0 4 Laboratory test finding 10/04/2014 PSA Screening 0.081 ng/mL 0-4.0 5 Laboratory test finding 04/14/2012 PSA,Diagnostic 0.18 NG/ML 0-4 6 Creatinine 11/09/2010 Creatinine 1.20 mg/dL 0.50-1.40 One Over Creatinine 0.80 eGFR Non- 58.6 > 60 eGFR 75.3 > 60 7 Laboratory test finding 11/09/2010 BUN 17 mg/dL 6-24 Laboratory test finding 10/04/2009 PSA,Diagnostic 0.11 NG/ML 0-4 8 Laboratory test finding 04/05/2009 PSA,Diagnostic 0.0 NG/ML 0-4 9 Protime 04/28/2008 Protime 10.9 10.9-13.3 Inr 0.81 10 Basic Metabolic Panel 04/28/2008 Sodium 137 mmol/L 135-145 Potassium 4.0 mmol/L 3.5-5.0 Chloride 104 mmol/L 101-111 Co2 (Carbon Dioxide) 24.0 mmol/L 22-32 Anion Gap 9.0 mmol/L 2-11 11 Glucose 106 mg/dL High 70-105 BUN 15 mg/dL 6-24 Creatinine 1.2 mg/dL 0.5-1.4 One Over Creatinine 0.83 BUN/Creatinine Ratio 12.5 8-20 Calcium 8.9 mg/dL 8.1-9.9 12 CBC With Manual Diff 04/28/2008 White Blood [...] Cath Panel 04/28/2008 PTT (Aptt) 21.6 20.1-28.2 13 1 [facility] Severe Sepsis and Septic Shock Management Bundle Measure requires all lactic acids initially measuring >2.0 mmol/L be repeated. 2 Therapeutic target for the treatment of diabetes mellitus patients is <7% HBA1C, and in selective patients <6.0%. Please refer to [place] [employer] diabetic care guidelines for further information. 3 Brush Polisher: [id number] [place] DRUMMOND 4 Serum levels of PSA measured using the Laz BaroFold DXI Hybritech immunoassay should not be interpreted [...] methods or kits cannot be used interchangeably. 5 Serum levels of PSA measured using the Laz Winchester DXI Hybritech immunoassay should not be interpreted [...] methods or kits cannot be used interchangeably. 6 * SERUM LEVELS OF PSA MEASURED USING THE Webcentrix ACCESS HYBRITECH IMMUNOASSAY SHOULD NOT BE INTERPRETED [...] methods of kits cannot be used interchangeably. 7 Because ethnic data is not always readily [...] 15-29 5 Kidney failure <15 (or dialysis) 8 * SERUM LEVELS OF PSA MEASURED USING THE Webcentrix ACCESS HYBRITECH IMMUNOASSAY SHOULD NOT BE INTERPRETED ABSOLUTE EVIDENCE OF THE PRESENCE OR ABSENCE OF DISEASE. THE PSA VALUE SHOULD BE USED IN CONJUNCTION WITH OTHER PERTINENT CLINICAL DIAGNOSTIC PROCEDURES. A PSA value in the range of 0.1 to 0.6 ng/ml is indeterminate if being used as an indicator of recurrent or residual disease. . 9 * SERUM LEVELS OF PSA MEASURED USING THE LAZ mig33 ACCESS HYBRITECH IMMUNOASSAY SHOULD NOT BE INTERPRETED ABSOLUTE EVIDENCE OF THE PRESENCE OR ABSENCE OF DISEASE. THE PSA VALUE SHOULD BE USED IN CONJUNCTION WITH OTHER PERTINENT CLINICAL DIAGNOSTIC PROCEDURES. A PSA value in the range of 0.1 to 0.6 ng/ml is indeterminate if being used as an indicator of recurrent or residual disease. . 10 PATRICIA VALUE=2.01 ( OF 09/11/07 Recommended INR for Patients on Oral Anticoagulants Prophylaxis 2.0 - 3.0 Treatment of thrombosis 2.0 - 3.0 Prevention of embolism 2.0 - 3.0 Prevention of embolism from prosthetic heart valves 2.5 - 3.5 11 Anion gap measurement may be of limited value in the presence of any alkalosis, especially in a combined acid base disorder. . 12 Please note change in reference range effective 08 . 13 PLEASE NOTE NEW REFERENCE RANGE EFFECTIVE 08. Procedures Date CPT Code Description Status 12/12/2017 43326 application of short leg splint Completed 11/21/2017 92765 application of short leg splint Completed 2017 55328 CLSD TX Distal Fib FX (Lateral Malleolus) w/o Completed manipulation 10/13/2017 34805 EKG Tracing & Interpretation Completed 04/15/2017 85478 EKG Tracing & Interpretation Completed 03/28/2017 29519 ECHO Transthorasic Realtime 2D W Doppler & Color Completed [facility] 03/28/2017 84864 EKG, Interpretation Only Completed 11/27/2016 30806 EKG Tracing & Interpretation Completed 10/17/2016 04316 ECHO Transthorasic Realtime 2D W Doppler & Color Completed [facility] 02/16/2016 81167 EKG Tracing & Interpretation Completed 12/04/2015 56750 ECHO Transthorasic Realtime 2D W Doppler & Color Completed [facility] 06/16/2015 85835 EKG Tracing & Interpretation Completed 01/31/2015 21860 Treadmill Interp/Report Only Completed 01/31/2015 62366 Stress Test Supervsn W/Out I/R Completed 09/15/2014 55499 EKG Tracing & Interpretation Completed 09/07/2014 63211 EKG, Interpretation Only Completed 09/06/2014 23755 Left Heart Cath. Incl S/I Coronaries, Angio S/I V Gram Completed If Done 09/06/2014 02622 EKG, Interpretation Only Completed 09/06/2014 70868 Revascularization Acute Total/Subtotal Occlusion Completed 09/06/2014 08491 Percutaneous Transcatheter Placement Of Intracoronary Completed Stent 09/05/2014 49599 EKG, Interpretation Only Completed 03/07/2014 64615 EKG Tracing & Interpretation Completed 11/24/2013 73785 ECHO Transthorasic Realtime 2D W Doppler & Color Completed [facility] 06/30/2013 45044 EKG Tracing & Interpretation Completed 08/21/2012 57096 EKG Tracing & Interpretation Completed 12/20/2011 23585 EKG Tracing & Interpretation Completed 05/13/2011 57855 ECHO Transthoracic, Real-Time 2D With Doppler And Color Completed Flow 05/13/2011 22954 EKG Tracing & Interpretation Completed 05/09/2011 99237 Treadmill Interp/Report Only Completed 05/09/2011 43897 Stress Test Supervsn W/Out I/R Completed 10/22/2010 72328 EKG Tracing & Interpretation Completed 03/20/2010 87983 EKG Tracing & Interpretation Completed 03/19/2010 93140 ECHO Transthorasic Realtime 2D W Doppler & Color Completed [facility] 03/12/2010 06574 Treadmill Interp/Report Only Completed 03/12/2010 79293 Stress Test Supervsn W/Out I/R Completed 10/10/2009 20851 EKG Tracing & Interpretation Completed 05/09/2009 62719 EKG Tracing & Interpretation Completed 05/01/2009 40599 Treadmill Interp/Report Only Completed 05/01/2009 17909 Stress Test Supervsn W/Out I/R Completed 04/20/2009 82851 ECHO Transthoracic, Real-Time 2D With Doppler And Color Completed Flow 11/18/2008 50719 EKG Tracing & Interpretation Completed 05/04/2008 30081 Left Heart Catheterization Completed 05/04/2008 63387 Inj Proc LFT Vent/LFT Atrl Angio Completed 05/04/2008 66574 Inj Proc LFT Vent/LFT Atrl Angio Completed 05/04/2008 09362 Coronary Angiography Completed 05/04/2008 02425 S/I/R Inj Proc Vent And Or Atrial Completed 05/04/2008 29771 S/I/R Inj Proc Vent And Or Atrial Completed 05/04/2008 43379 Selective Coronary Angioplasty Completed 04/28/2008 37583 ECHO/Stress Completed 04/28/2008 70332 ECHO/Stress Completed 04/28/2008 93602 ECHO/Stress Completed 04/28/2008 47828 Stress Test Completed 04/28/2008 97064 Stress Test Completed 03/29/2008 99606 Color Doppler Completed 03/29/2008 84325 Pulse Doppler & Continuous Wave Completed 03/29/2008 07098 Pulse Doppler & Continuous Wave Completed 03/29/2008 44135 Echocardiogram Completed 02/25/2008 48096 EKG Tracing & Interpretation Completed 05/02/2005 60148 Treadmill Interp/Report Only Completed 05/02/2005 54600 Stress Test Supervsn W/Out I/R Completed Encounters Type Date Location Provider CPT E/M Dx Office Visit 11/19/2017 [facility] 03352 L03.116 10:55a C.M.A. 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 Margo Vickers 82173 L03.116 Assoc, Hospitalists FINANCIAL PLANNING ADVISOR I10 J44.9 E10.59 Office Visit 11/18/2017 11:13a [facility] [place] [address] L03.116 C.M.A. Office Visit 11/17/2017 1:41p [facility] Margo Vickers, 80474 L03.116 Assoc, Hospitalists FINANCIAL PLANNING ADVISOR I10 J44.9 E10.59 Office Visit 11/17/2017 10:30a [facility] [place] [address] L03.116 C.M.A. E11.621 Office Visit 10/13/2017 9:00a [facility] IRIS Brandon 35924OPY I25.118 I71.2 I10 Office Visit 04/15/2017 4:00p [facility] Stu Peres 17315 R07.9 Yovana Nicholas M.D. D64.9 I51.7 I34.0 I71.2 I25.118 I10 I45.10 I44.0 R94.31 Office Visit 03/28/2017 4:04p [facility], Reina Mcdonough, 11212 R07.9 Hospitalists M.D. I25.118 I10 Office Visit 03/27/2017 4:00p [facility], Reina Mcdonough, 72289 R07.9 Hospitalists M.D. I25.118 I10 Office Visit 11/27/2016 4:00p [facility] Stu Nicholas, 22886 I25.10 M.D. I10 I71.9 I45.10 R94.31 Office Visit 10/29/2016 9:21a [facility] Zoey Carver, 65549 R25.8 M.D. Office Visit 10/23/2016 10:34a [facility], Reina Sharonda, 75323 D72.829 Hospitalists M.D. D64.9 E11.8 Z79.4 Office Visit 10/20/2016 10:33a [facility], Reina Sharonda, 82586 D72.829 Hospitalists M.D. D64.9 E11.8 Office Visit 10/18/2016 10:20a [facility], Reina Sharonda, 87836 I63.9 Hospitalists M.D. D64.9 K92.2 J20.9 Office Visit 10/17/2016 11:39a [facility] [place] [address] I63.9 Office Visit 10/17/2016 10:19a [facility], Reina Mcdonough, 54650 I63.9 Hospitalists M.D. D64.9 K92.2 J20.9 Office Visit 10/16/2016 10:18a [facility], Manisha Carmona, 75473 I63.9 Hospitalists M.D. D64.9 K92.2 J20.9 Office Visit 10/16/2016 11:38a [facility] [address] I63.9 Office Visit 10/15/2016 10:17a [facility], Manisha Carmona, 51189 I63.9 Hospitalists M.D. D64.9 K92.2 J20.9 Office Visit 10/14/2016 10:17a [facility], Mnaisha Carmona, 56881 R65.20 Hospitalists Cirilo D64.9 J20.9 K92.2 Office Visit 10/13/2016 10:16a [facility],pc Manisha Carmona, 30018 R65.20 Hospitalists Cirilo D64.9 J20.9 K92.2 Office Visit 10/13/2016 7:00a [facility], 00523 K92.2 [facility] Office Visit 10/12/2016 10:15a [facility] Manisha Mahtew, 39048 R65.20 Assoc, Hospitalists Cirilo D64.9 J20.9 K92.2 Office Visit 10/11/2016 10:14a [facility], 24622 R65.20 Assoc, Hospitalists Cirilo J20.9 J44.1 A41.9 Office Visit 10/11/2016 7:00a [facility] [place] [address] K92.2 [facility] Office Visit 02/16/2016 9:40a [facility] Qutaybeh S. 14326 I25.10 Cir[facility] Nicholas E11.9 I10 J44.9 R94.31 I71.9 Office Visit 12/04/2015 1:06p [facility], Damon Inman, 37241 R06.02 Hospitaldivya Kerr I25.10 E11.9 I10 Office Visit 12/03/2015 1:05p [facility], 64605 R06.02 Assoc, Hospitalists Cirilo I25.10 E11.9 I10 Office Visit 08/12/2015 11:20a [facility], Ari Fox M.D. 91648 E87.2 Hospitalists E11.9 J44.9 Office Visit 06/16/2015 4:00p [facility] Qutaybeh S. Cristopher, 94826 414.00 Cirilo 414.9 250.00 414.01 Office Visit 01/29/2015 1[facility] 77526 414.00 Assoc, Hospitalists N.P. 490 786.50 Office Visit 12/20/2014 10:30a [facility] IRIS Brandon 75906JIN 414.9 V45.82 250.00 496 492.8 Office Visit 09/15/2014 1:00p [facility] Stu Nicholas, 28082 414.9 M.D. 410.70 496 414.01 V45.82 Office Visit 09/08/2014 3:47p [facility] Torsten Aj, 39850 428.0 M.D. Office Visit 09/08/2014 5:58p [facility], Angelina Dexter, 89200 786.50 Hospitalists N.P. 788.20 414.9 250.00 Office Visit 09/07/2014 1:53p [facility] Reed De Jesus M.D., 32650 410.70 [facility], FSCAI 414.9 Office Visit 09/07/2014 5:57p [facility], Angelina Dexter, 57734 786.50 Hospitalists N.P. 788.20 414.9 250.00 Office Visit 09/06/2014 5:56p [facility], Angelina Dexter, 84051 786.50 Hospitalists N.P. 496 414.9 250.00 Office Visit 09/05/2014 5:55p [facility], Angelina Dexter, 49343 786.50 Hospitalists N.P. 414.9 496 250.00 Office Visit 03/19/2014 1:17p [facility], Reina Mcdonough, 60395 562.11 Hospitalists M.D. 414.00 250.00 Office Visit 03/18/2014 1:16p [facility],pc Reina Mcdonough, 25201 562.11 Hospitalists M.D. 414.00 250.00 Office Visit 03/17/2014 1:15p [facility], Reina Mcdonough, 91987 562.11 Hospitalists M.D. 276.2 414.00 250.00 Office Visit 03/07/2014 3:40p [facility] Stu Nicholas, 12671 786.05 M.D. 414.01 401.1 426.4 794.31 272.4 Office Visit 11/24/2013 3:34p [facility], Reina Mcdonough, 50789 466.0 Hospitalists M.D. 786.50 Office Visit 11/23/2013 3:33p [facility], Reina Mcdonough, 31849 466.0 Hospitalists M.D. 786.50 Office Visit 06/30/2013 10:00a [facility] Qutaybeh S. Maghaydah, 26882 414.01 M.D. 401.1 426.4 272.4 Office Visit 08/21/2012 10:00a [facility] Qutaybeh S. Maghaydah, 31781 414.01 M.D. 401.1 426.4 272.4 Office Visit 12/20/2011 10:20a [facility] Qutaybeh S. Maghaydah, 42900 794.31 M.D. 414.01 401.1 426.4 Office Visit 05/13/2011 10:00a [facility] Qutaybeh S. Maghaydah, 44974 794.31 M.D. 414.01 401.1 426.4 272.4 466.0 492.8 250.02 Office Visit 05/09/2011 9:30a [facility] Qutaybeh S. Maghaydah, 13274 794.31 M.D. 414.01 401.1 426.4 Office Visit 10/22/2010 9:00a [facility] Qutaybeh S. Maghaydah, 43385 414.01 M.D. 401.1 426.4 272.4 Office Visit 03/20/2010 9:20a [facility] Qutaybeh S. Maghaydah, 46349 414.01 M.D. 401.1 426.4 272.4 Office Visit 10/10/2009 8:40a [facility] Qutaybeh S. Maghaydah, 42858 414.01 M.D. 401.1 426.4 272.4 Office Visit 05/09/2009 8:50a [facility] Qutaybeh S. Maghaydah, 92970 414.01 M.D. 401.1 786.05 426.4 Office Visit 11/18/2008 11:20a [facility] Garytaybcresencio S. Cristopher, 85483 414.01 M.D. 786.05 426.4 272.4 Office Visit 05/11/2008 11:40a [facility] Qutaybcresencio S. Cristopher, 66210 414.01 M.D. 786.05 401.1 V45.82 426.4 272.4 Office Visit 05/04/2008 1:00p [facility] Garytaybcresencio S. Simyddevika, 55126 414.01 M.D. 786.05 401.1 V45.82 Office Visit 04/28/2008 3:40p [facility] Qutaybcresencio S. Cristopher, 05504 414.01 M.D. 786.05 401.1 V45.82 794.31 426.4 Office Visit 02/25/2008 10:20a [facility] Garytaboom S. Cristopher, 67857 414.01 M.D. 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
--- OUTSIDE RECORDS SUMMARY | 2017-12-15 13:33 | XMS REPORT ---
:1930 External Reference #:[id number] Author Organization [facility] Address [address] [address] Phone [phone] Care Team Providers Name Role Phone Ed Blevins MD Primary Care Physician Unavailable Payers Type Date Identification Payment Subscriber Numbers Provider Health Maintenance Effective: Policy Number: Medicare Blue Shar Simmons [facility] ([facility]) 10/06/2012 [id number] o Group Number: [id number] [address] PayID: [id number] SINDI Andino [address] Health Maintenance Effective: Policy Number: Medicare Abelardo Chaves [employer] ([facility]) 10/06/2009 [id number] [facility] Expires: 10/06/2012 PayID: [id number] [address] [address] SINDI Andino [id number] Problems Date Description Provider Status Onset: 12/20/2011 [...] : (age 71 Years) Father due to [place] : (age 64 Years) Mother due to [...] Unknown 0000 every day ( started 03/28/17 [facility] discharge ) Ferrous Sulfate / Active Tablets 325mg 1 by mouth Unknown 0000 every day( started 03/28/17 [facility] discharge ) Klor-Con M20 / Active Tablets [...] PO qd tayb 2007 - S. 09/14/ [facility] 2013 [facility] Lipitor 02/24/ Hx Tablets 40mg 90tabs 1/2tab qhs Qutayb 2007 - S. 05/[facility] Claritin 02/24/ Hx Tablets 10mg 30tabs PO qd prn Qutayb 2007 - S. 11/18/ [facility] 2008 [facility] Metoprolol 02/24/ Hx Tablets 50mg 30tabs one half tayb 2007 - bid S. 03/02/ [facility] 2013 , [facility] Advair Diskus 02/24/ Hx Misc 500/50 1 puff bid tayb 2007 - S. 03/07/ [facility] , [facility] Proventil HFA / Hx [...] 2016 Vital Signs Date Vital Result Comment 11/28/2017 Height 70 inches 5'10" Weight 187.00 [...] finding 04/05/2009 PSA,Diagnostic 0.0 NG/ML 0-4 9 CBC With Manual Diff 04/28/2008 White Blood [...] Neutrophil Count 2.7 Anisocytosis SLIGHT Polychromasia SLIGHT Basic Metabolic Panel 04/28/2008 Sodium 137 mmol/L 135-145 Potassium 4.0 mmol/L 3.5-5.0 Chloride 104 mmol/L 101-111 Co2 (Carbon Dioxide) 24.0 mmol/L 22-32 Anion Gap 9.0 mmol/L 2-11 10 Glucose 106 mg/dL High 70-105 BUN 15 mg/dL 6-24 Creatinine 1.2 mg/dL 0.5-1.4 One Over Creatinine 0.83 BUN/Creatinine Ratio 12.5 8-20 Calcium 8.9 mg/dL 8.1-9.9 11 Protime 04/28/2008 Protime 10.9 10.9-13.3 Inr 0.81 12 Cath Panel 04/28/2008 PTT (Aptt) 21.6 20.1-28.2 13 1 [facility] Severe Sepsis and Septic Shock Management Bundle Measure requires all lactic acids initially measuring >2.0 mmol/L be repeated. 2 Therapeutic target for the treatment of diabetes mellitus patients is <7% HBA1C, and in selective patients <6.0%. Please refer to [place] [employer] diabetic care guidelines for further information. 3 Tobacco Drummer: [id number] [place] DRUMMOND 4 Serum levels of PSA measured using the [employer] DXI Hybritech immunoassay should not be interpreted [...] levels of PSA measured using the [employer] DXI Hybritech immunoassay should not be interpreted [...] SERUM LEVELS OF PSA MEASURED USING THE Sa[employer] ACCESS HYBRITECH IMMUNOASSAY SHOULD NOT BE INTERPRETED [...] SERUM LEVELS OF PSA MEASURED USING THE Saavn ACCESS HYBRITECH IMMUNOASSAY SHOULD NOT BE INTERPRETED [...] LEVELS OF PSA MEASURED USING THE [employer] ACCESS HYBRITECH IMMUNOASSAY SHOULD NOT BE INTERPRETED ABSOLUTE EVIDENCE OF THE PRESENCE OR ABSENCE OF DISEASE. THE PSA VALUE SHOULD BE USED IN CONJUNCTION WITH OTHER PERTINENT CLINICAL DIAGNOSTIC PROCEDURES. A PSA value in the range of 0.1 to 0.6 ng/ml is indeterminate if being used as an indicator of recurrent or residual disease. . 10 Anion gap measurement may be of limited value in the presence of any alkalosis, especially in a combined acid base disorder. . 11 Please note change in reference range effective 08 . 12 PATRICIA VALUE=2.01 ( OF 09/11/07 Recommended INR for Patients on Oral Anticoagulants Prophylaxis 2.0 - 3.0 Treatment of thrombosis 2.0 - 3.0 Prevention of embolism 2.0 - 3.0 Prevention of embolism from prosthetic heart valves 2.5 - 3.5 13 PLEASE NOTE NEW REFERENCE RANGE EFFECTIVE 08. Procedures Date CPT Code Description Status 11/21/2017 54814 application of short leg splint Completed 2017 83558 CLSD TX Distal Fib FX (Lateral Malleolus) w/o Completed manipulation 10/13/2017 15401 EKG Tracing & Interpretation Completed 04/15/2017 59931 EKG Tracing & Interpretation Completed 03/28/2017 16585 ECHO Transthorasic Realtime 2D W Doppler & Color Completed [facility] 03/28/2017 20007 EKG, Interpretation Only Completed 11/27/2016 01134 EKG Tracing & Interpretation Completed 10/17/2016 00421 ECHO Transthorasic Realtime 2D W Doppler & Color Completed [facility] 02/16/2016 78181 EKG Tracing & Interpretation Completed 12/04/2015 46048 ECHO Transthorasic Realtime 2D W Doppler & Color Completed [facility] 06/16/2015 29151 EKG Tracing & Interpretation Completed 01/31/2015 84529 Treadmill Interp/Report Only Completed 01/31/2015 16576 Stress Test Supervsn W/Out I/R Completed 09/15/2014 85367 EKG Tracing & Interpretation Completed 09/07/2014 29961 EKG, Interpretation Only Completed 09/06/2014 84735 Left Heart Cath. Incl S/I Coronaries, Angio S/I V Gram Completed If Done 09/06/2014 85504 EKG, Interpretation Only Completed 09/06/2014 29223 Revascularization Acute Total/Subtotal Occlusion Completed 09/06/2014 86881 Percutaneous Transcatheter Placement Of Intracoronary Completed Stent 09/05/2014 36270 EKG, Interpretation Only Completed 03/07/2014 48247 EKG Tracing & Interpretation Completed 11/24/2013 95692 ECHO Transthorasic Realtime 2D W Doppler & Color Completed [facility] 06/30/2013 18701 EKG Tracing & Interpretation Completed 08/21/2012 45749 EKG Tracing & Interpretation Completed 12/20/2011 19251 EKG Tracing & Interpretation Completed 05/13/2011 52950 ECHO Transthoracic, Real-Time 2D With Doppler And Color Completed Flow 05/13/2011 46309 EKG Tracing & Interpretation Completed 05/09/2011 21399 Treadmill Interp/Report Only Completed 05/09/2011 42728 Stress Test Supervsn W/Out I/R Completed 10/22/2010 85149 EKG Tracing & Interpretation Completed 03/20/2010 35394 EKG Tracing & Interpretation Completed 03/19/2010 45303 ECHO Transthorasic Realtime 2D W Doppler & Color Completed [facility] 03/12/2010 50614 Treadmill Interp/Report Only Completed 03/12/2010 83955 Stress Test Supervsn W/Out I/R Completed 10/10/2009 77864 EKG Tracing & Interpretation Completed 05/09/2009 81893 EKG Tracing & Interpretation Completed 05/01/2009 05548 Treadmill Interp/Report Only Completed 05/01/2009 27558 Stress Test Supervsn W/Out I/R Completed 04/20/2009 10733 ECHO Transthoracic, Real-Time 2D With Doppler And Color Completed Flow 11/18/2008 80479 EKG Tracing & Interpretation Completed 05/04/2008 55251 Left Heart Catheterization Completed 05/04/2008 79990 Inj Proc LFT Vent/LFT Atrl Angio Completed 05/04/2008 40074 Inj Proc LFT Vent/LFT Atrl Angio Completed 05/04/2008 91879 Coronary Angiography Completed 05/04/2008 12963 S/I/R Inj Proc Vent And Or Atrial Completed 05/04/2008 92124 S/I/R Inj Proc Vent And Or Atrial Completed 05/04/2008 16008 Selective Coronary Angioplasty Completed 04/28/2008 42777 ECHO/Stress Completed 04/28/2008 80031 ECHO/Stress Completed 04/28/2008 75458 ECHO/Stress Completed 04/28/2008 34694 Stress Test Completed 04/28/2008 00227 Stress Test Completed 03/29/2008 84757 Color Doppler Completed 03/29/2008 92557 Pulse Doppler & Continuous Wave Completed 03/29/2008 33947 Pulse Doppler & Continuous Wave Completed 03/29/2008 98366 Echocardiogram Completed 02/25/2008 64392 EKG Tracing & Interpretation Completed 05/02/2005 40939 Treadmill Interp/Report Only Completed 05/02/2005 95988 Stress Test Supervsn W/Out I/R Completed Encounters Type Date Location Provider CPT E/M Dx Office Visit 11/19/2017 [facility] 81974 L03.116 10:55a C.M.A. 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 Office Visit 11/17/2017 1:41p [facility] Margo Vickers 56207 L03.116 Assoc, Hospitalists FIRE TECHNICIAN I10 J44.9 E10.59 Office Visit 11/17/2017 10:30a [facility] [place] [address] L03.116 C.M.A. E11.621 Office Visit 10/13/2017 9:00a [facility] IRIS Brandon 97923CSI I25.118 I71.2 I10 Office Visit 04/15/2017 4:00p [facility] Stu Peres 07320 R07.9 Yovana Nicholas M.D. D64.9 I51.7 I34.0 I71.2 I25.118 I10 I45.10 I44.0 R94.31 Office Visit 03/28/2017 4:04p [facility], Reina Mcdonough 26922 R07.9 Hospitalists [facility] I25.118 I10 Office Visit 03/27/2017 4:00p [facility], Reina Mcdonough 77330 R07.9 Hospitalists M.D. I25.118 I10 Office Visit 11/27/2016 4:00p [facility] Stu Nicholas, 26324 I25.10 M.D. I10 I71.9 I45.10 R94.31 Office Visit 10/29/2016 9:21a [facility] Zoey Carver, 06474 R25.8 M.D. Office Visit 10/23/2016 10:34a [facility] Reina Mcdonough, 36608 D72.829 Hospitalists M.D. D64.9 E11.8 Z79.4 Office Visit 10/20/2016 10:33a [facility] Reinayari Mcdonough, 53171 D72.829 Hospitalists M.D. D64.9 E11.8 Office Visit 10/18/2016 10:20a [facility] Reina Mcdonough, 51906 I63.9 Hospitalists M.D. D64.9 K92.2 J20.9 Office Visit 10/17/2016 11:39a [facility] [place] [address] I63.9 Office Visit 10/17/2016 10:19a [facility] Reina Mcdonough, 55785 I63.9 Hospitalists M.D. D64.9 K92.2 J20.9 Office Visit 10/16/2016 10:18a [facility] Manisha Carmona, 78343 I63.9 Hospitalists M.D. D64.9 K92.2 J20.9 Office Visit 10/16/2016 11:38a [facility] [place] [address] I63.9 Office Visit 10/15/2016 10:17a [facility] Manisha Carmona, 81992 I63.9 Hospitalists M.D. D64.9 K92.2 J20.9 Office Visit 10/14/2016 10:17a [facility] Manisha Carmona, 12853 R65.20 Hospitalists M.DAngela D64.9 J20.9 K92.2 Office Visit 10/13/2016 10:16a [facility] Manisha Carmona, 55273 R65.20 Hospitalists Cirilo D64.9 J20.9 K92.2 Office Visit 10/13/2016 7:00a [facility], 95616 K92.2 [facility] Office Visit 10/12/2016 10:15a [facility] Manisha Carmona, 63504 R65.20 Assoc,pc Hospitalists Cirilo D64.9 J20.9 K92.2 Office Visit 10/11/2016 10:14a [facility], 15241 R65.20 Assoc, Hospitalists Cirilo J20.9 J44.1 A41.9 Office Visit 10/11/2016 7:00a [facility] [place] [address] K92.2 [facility] Office Visit 02/16/2016 9:40a [facility] Qutaybeh S. 63412 I25.10 Cirilo Nicholas E11.9 I10 J44.9 R94.31 I71.9 Office Visit 12/04/2015 1:06p [facility] Assoc, Damon Inman, 08199 R06.02 Hospitalists Cirilo I25.10 E11.9 I10 Office Visit 12/03/2015 1:05p [facility], 65418 R06.02 Assoc, Hospitalists Cir[facility] I25.10 E11.9 I10 Office Visit 08/12/2015 11:20a [facility] Ari Fox M.D. 02137 E87.2 Hospitalists E11.9 J44.9 Office Visit 06/16/2015 4:00p [facility] Qutaybeh S. Cristopher, 38160 414.00 Cirilo 414.9 250.00 414.01 Office Visit 01/29/2015 1:16p [facility] Edgar Altamirano, 84161 414.00 Assoc, Hospitalists N.P. 490 786.50 Office Visit 12/20/2014 10:30a [facility] IRIS Brandon 28465TTA 414.9 V45.82 250.00 496 492.8 Office Visit 09/15/2014 1:00p [facility] Qutaybeh S. Maghaydah, 54970 414.9 M.D. 410.70 496 414.01 V45.82 Office Visit 09/08/2014 3:47p [facility] Mauricepaulette ReidAngela Aj, 04945 428.0 M.D. Office Visit 09/08/2014 5:58p [facility], Angelina Dexter, 23478 786.50 Hospitalists N.P. 788.20 414.9 250.00 Office Visit 09/07/2014 1:53p [facility] Reed De Jesus M.D., 06185 410.70 [facility], FSCAI 414.9 Office Visit 09/07/2014 5:57p [facility], Angelina Dexter, 02594 786.50 Hospitalists N.P. 788.20 414.9 250.00 Office Visit 09/06/2014 5:56p [facility], Angelina Dexter, 25277 786.50 Hospitalists N.P. 496 414.9 250.00 Office Visit 09/05/2014 5:55p [facility], Angelina Dexter, 48354 786.50 Hospitalists N.P. 414.9 496 250.00 Office Visit 03/19/2014 1:17p [facility], Reina Mcdonough, 23764 562.11 Hospitalists M.D. 414.00 250.00 Office Visit 03/18/2014 1:16p [facility], Reina Mcdonough, 76208 562.11 Hospitalists M.D. 414.00 250.00 Office Visit 03/17/2014 1:15p [facility], Reina Mcdonough, 89600 562.11 Hospitalists M.D. 276.2 414.00 250.00 Office Visit 03/07/2014 3:40p [facility] Garytayb SAngela Nicholas, 61529 786.05 M.D. 414.01 401.1 426.4 794.31 272.4 Office Visit 11/24/2013 3:34p [facility], Reina Mcdonough, 64165 466.0 Hospitalists M.D. 786.50 Office Visit 11/23/2013 3:33p [facility] Assoc,pc Reina Mcdonough, 31164 466.0 Hospitalists M.D. 786.50 Office Visit 06/30/2013 10:00a [facility] Qutaybeh S. Maghaydah, 01802 414.01 M.D. 401.1 426.4 272.4 Office Visit 08/21/2012 10:00a [facility] Qutaybeh S. Maghaydah, 87331 414.01 M.D. 401.1 426.4 272.4 Office Visit 12/20/2011 10:20a [facility] Qutaybeh S. Maghaydah, 61424 794.31 M.D. 414.01 401.1 426.4 Office Visit 05/13/2011 10:00a [facility] Qutaybeh S. Maghaydah, 63491 794.31 M.D. 414.01 401.1 426.4 272.4 466.0 492.8 250.02 Office Visit 05/09/2011 9:30a [facility] Qutaybeh S. Maghaydah, 30177 794.31 M.D. 414.01 401.1 426.4 Office Visit 10/22/2010 9:00a [facility] Qutaybeh S. Maghaydah, 22065 414.01 M.D. 401.1 426.4 272.4 Office Visit 03/20/2010 9:20a [facility] Qutaybeh S. Maghaydah, 53072 414.01 M.D. 401.1 426.4 272.4 Office Visit 10/10/2009 8:40a [facility] Qutaybeh S. Maghaydah, 38106 414.01 M.D. 401.1 426.4 272.4 Office Visit 05/09/2009 8:50a [facility] Qutaybeh S. Maghaydah, 77653 414.01 M.D. 401.1 786.05 426.4 Office Visit 11/18/2008 11:20a [facility] Qutaybeh S. Maghaydah, 74626 414.01 M.D. 786.05 426.4 272.4 Office Visit 05/11/2008 11:40a [facility] Garytacresencio Israel. Cristopher, 13529 414.01 M.D. 786.05 401.1 V45.82 426.4 272.4 Office Visit 05/04/2008 1:00p [facility] Garytaybcresencio S. Cristopher, 37482 414.01 M.D. 786.05 401.1 V45.82 Office Visit 04/28/2008 3:40p [facility] Garytayb S. Cristopher, 80575 414.01 M.D. 786.05 401.1 V45.82 794.31 426.4 Office Visit 02/25/2008 10:20a [facility] Garytaboom S. Cristopher, 12585 414.01 M.D. 786.05 401.1 272.4 V45.82 794.31 426.4 Plan of Care Future Appointment(s):12/12/2017 10:00 am - Paddy Bryan MD at [facility].11/28/2017 - Paddy Bryan, [id number] Nondisp fx of lateral malleolus of l fibula, 7thDFollow up:2 weeks
--- OUTSIDE RECORDS SUMMARY | 2017-12-15 13:33 | XMS REPORT ---
:1930 External Reference #:[id number] Author Organization [facility] Address [address] [address] Phone [phone] Care Team Providers Name Role Phone Ed Blevins MD Primary Care Physician Unavailable Payers Type Date Identification Payment Subscriber Numbers Provider Health Maintenance Effective: Policy Number: Medicare Blue Shar Simmons [facility] [place] ([facility]) 10/06/2012 [id number] o Group Number: [id number] [address] PayID: [id number] SINDI Andino [address] Health Maintenance Effective: Policy Number: Medicare Abelardo Chaves [employer] Player ([facility]) 10/06/2009 [id number] [facility] [place] Expires: 10/06/2012 PayID: [id number] [address] [id number] SINDI Andino [address] Problems Date Description Provider Status Onset: 12/20/2011 [...] : (age 71 Years) Father due to [place] : (age 64 Years) Mother due to [...] Unknown 0000 every day ( started 03/28/17 [facility] discharge ) Ferrous Sulfate / Active Tablets 325mg 1 by mouth Unknown 0000 every day( started 03/28/17 [facility] discharge ) Klor-Con M20 / Active Tablets [...] qd Garytaybcresencio 2007 - S. 09/14/ Cristopher Cbarera M.D. Aspirin 02/24/ Hx Tablets 325mg 1-2 PO qd Garytaybeh 2007 - S. 11/18/ Jeanette Camacho.D. Avapro 02/24/ Hx Tablets 150mg 90tabs 1 PO qd tayb 2007 - [facility]. [facility] Lip[facility] 02/24/ Hx Tablets 40mg 90tabs 1/2tab qhs Qutayb 2007 - S. 05/13/ [facility] Claritin 02/24/ Hx Tablets 10mg 30tabs PO qd prn Qutaybeh 2007 - S. 11/18/ [facility] 2008 Cirilo Metoprolol 02/24/ Hx Tablets 50mg 30tabs one half tayb 2007 - bid S. 03/02/ [facility] Advair Diskus 02/24/ Hx Misc 500/50 1 puff bid tayb 2007 - S. 03/07/ [facility] Proventil HFA / Hx [...] 2016 Vital Signs Date Vital Result Comment 11/21/2017 Height 70 inches 5'10" Weight 187.00 [...] 04/28/2008 PTT (Aptt) 21.6 20.1-28.2 11 1 Skin Care Instructor: [id number] [place] DRUMMOND 2 Serum levels of PSA measured using the Aircom DXI Hybritech immunoassay should not be interpreted [...] Serum levels of PSA measured using the Aircom DXI Hybritech immunoassay should not be interpreted [...] LEVELS OF PSA MEASURED USING THE RIC SceneDoc ACCESS HYBRITECH IMMUNOASSAY SHOULD NOT BE INTERPRETED [...] SERUM LEVELS OF PSA MEASURED USING THE ForeUp ACCESS HYBRITECH IMMUNOASSAY SHOULD NOT BE INTERPRETED [...] LEVELS OF PSA MEASURED USING THE RIC SceneDoc ACCESS HYBRITECH IMMUNOASSAY SHOULD NOT BE INTERPRETED [...] Procedures Date CPT Code Description Status 11/21/2017 01181 application of short leg splint Completed 2017 19251 CLSD TX Distal Fib FX (Lateral Malleolus) w/o Completed manipulation 10/13/2017 34553 EKG Tracing & Interpretation Completed 04/15/2017 13674 EKG Tracing & Interpretation Completed 03/28/2017 43544 ECHO Transthorasic Realtime 2D W Doppler & Color Completed [facility] 03/28/2017 12692 EKG, Interpretation Only Completed 11/27/2016 17340 EKG Tracing & Interpretation Completed 10/17/2016 38543 ECHO Transthorasic Realtime 2D W Doppler & Color Completed [facility] 02/16/2016 29002 EKG Tracing & Interpretation Completed 12/04/2015 07029 ECHO Transthorasic Realtime 2D W Doppler & Color Completed [facility] 06/16/2015 69050 EKG Tracing & Interpretation Completed 01/31/2015 67627 Treadmill Interp/Report Only Completed 01/31/2015 49799 Stress Test Supervsn W/Out I/R Completed 09/15/2014 84406 EKG Tracing & Interpretation Completed 09/07/2014 18000 EKG, Interpretation Only Completed 09/06/2014 10536 Left Heart Cath. Incl S/I Coronaries, Angio S/I V Gram Completed If Done 09/06/2014 64188 EKG, Interpretation Only Completed 09/06/2014 83568 Revascularization Acute Total/Subtotal Occlusion Completed 09/06/2014 73884 Percutaneous Transcatheter Placement Of Intracoronary Completed Stent 09/05/2014 91872 EKG, Interpretation Only Completed 03/07/2014 63415 EKG Tracing & Interpretation Completed 11/24/2013 01404 ECHO Transthorasic Realtime 2D W Doppler & Color Completed [facility] 06/30/2013 13116 EKG Tracing & Interpretation Completed 08/21/2012 75974 EKG Tracing & Interpretation Completed 12/20/2011 15774 EKG Tracing & Interpretation Completed 05/13/2011 90501 ECHO Transthoracic, Real-Time 2D With Doppler And Color Completed Flow 05/13/2011 46155 EKG Tracing & Interpretation Completed 05/09/2011 47840 Treadmill Interp/Report Only Completed 05/09/2011 63546 Stress Test Supervsn W/Out I/R Completed 10/22/2010 22218 EKG Tracing & Interpretation Completed 03/20/2010 88318 EKG Tracing & Interpretation Completed 03/19/2010 97070 ECHO Transthorasic Realtime 2D W Doppler & Color Completed [facility] 03/12/2010 91598 Treadmill Interp/Report Only Completed 03/12/2010 87507 Stress Test Supervsn W/Out I/R Completed 10/10/2009 95648 EKG Tracing & Interpretation Completed 05/09/2009 30338 EKG Tracing & Interpretation Completed 05/01/2009 89333 Treadmill Interp/Report Only Completed 05/01/2009 55810 Stress Test Supervsn W/Out I/R Completed 04/20/2009 72263 ECHO Transthoracic, Real-Time 2D With Doppler And Color Completed Flow 11/18/2008 09860 EKG Tracing & Interpretation Completed 05/04/2008 75224 Left Heart Catheterization Completed 05/04/2008 85749 Inj Proc LFT Vent/LFT Atrl Angio Completed 05/04/2008 76028 Inj Proc LFT Vent/LFT Atrl Angio Completed 05/04/2008 35501 Coronary Angiography Completed 05/04/2008 07020 S/I/R Inj Proc Vent And Or Atrial Completed 05/04/2008 24785 S/I/R Inj Proc Vent And Or Atrial Completed 05/04/2008 19574 Selective Coronary Angioplasty Completed 04/28/2008 86267 ECHO/Stress Completed 04/28/2008 68386 ECHO/Stress Completed 04/28/2008 14505 ECHO/Stress Completed 04/28/2008 56724 Stress Test Completed 04/28/2008 64331 Stress Test Completed 03/29/2008 48873 Color Doppler Completed 03/29/2008 00689 Pulse Doppler & Continuous Wave Completed 03/29/2008 67875 Pulse Doppler & Continuous Wave Completed 03/29/2008 78663 Echocardiogram Completed 02/25/2008 88257 EKG Tracing & Interpretation Completed 05/02/2005 51538 Treadmill Interp/Report Only Completed 05/02/2005 88612 Stress Test Supervsn W/Out I/R Completed Encounters Type Date Location Provider CPT E/M Dx Office Visit 11/17/2017 [facility] [place] [address] L03.116 10:30a C.M.A. E11.621 Office Visit 10/13/2017 9:00a [facility] IRIS Brandon 12217KTT I25.118 I71.2 I10 Office Visit 04/15/2017 4:00p [facility] Lindy. 36734 R07.9 Yovana Nicholas M.D. D64.9 I51.7 I34.0 I71.2 I25.118 I10 I45.10 I44.0 R94.31 Office Visit 03/28/2017 4:04p [facility], Reina Sharonda, 56579 R07.9 Hospitalists MAngelaDAngela I25.118 I10 Office Visit 03/27/2017 4:00p [facility],pc Reina Sharonda, 08042 R07.9 Hospitalists MAngelaDAngela I25.118 I10 Office Visit 11/27/2016 4:00p [facility] S. quetamile, 49157 I25.10 M.DAngela I10 I71.9 I45.10 R94.31 Office Visit 10/29/2016 9:21a [facility] Zoey Carver, 95725 R25.8 M.D. Office Visit 10/23/2016 10:34a [facility], Reina Sharonda, 64087 D72.829 Hospitalists M.DAngela D64.9 E11.8 Z79.4 Office Visit 10/20/2016 10:33a [facility], Reina Sharonda, 79641 D72.829 Hospitalists MAngelaDAngela D64.9 E11.8 Office Visit 10/18/2016 10:20a [facility], Reina Mcdonough, 48945 I63.9 Hospitalists MArron D64.9 K92.2 J20.9 Office Visit 10/17/2016 10:19a [facility], Reina Mcdonough, 63030 I63.9 Hospitalists M.DAngela D64.9 K92.2 J20.9 Office Visit 10/17/2016 11:39a [facility] [address] I63.9 Office Visit 10/16/2016 10:18a [facility], Manisha Carmona, 10036 I63.9 Hospitalists MArron D64.9 K92.2 J20.9 Office Visit 10/16/2016 11:38a [facility] [address] I63.9 Office Visit 10/15/2016 10:17a [facility],pc Manisha Mathew, 50218 I63.9 Hospitalists MArron D64.9 K92.2 J20.9 Office Visit 10/14/2016 10:17a [facility] Manisha Mathew, 51952 R65.20 Hospitalists MArron D64.9 J20.9 K92.2 Office Visit 10/13/2016 10:16a [facility],pc Manisha Mtahew, 41191 R65.20 Hospitalists MArron D64.9 J20.9 K92.2 Office Visit 10/13/2016 7:00a [facility], 51642 K92.2 Cvicu Rn Office Visit 10/12/2016 10:15a [facility] Manisha Mathew, 72952 R65.20 Assoc,pc Hospitalists MArron D64.9 J20.9 K92.2 Office Visit 10/11/2016 10:14a [facility] [place], [address] R65.20 Assoc,pc Hospitalists Cirilo J20.9 J44.1 A41.9 Office Visit 10/11/2016 7:00a [facility] [place] [address] K92.2 [facility] Office Visit 02/16/2016 9:40a [facility] Qutayb S. 82793 I25.10 Cirilo Nicholas E11.9 I10 J44.9 R94.31 I71.9 Office Visit 12/04/2015 1:06p [facility],pc Damon Inman, 40789 R06.02 Hospitalists Cirilo I25.10 E11.9 I10 Office Visit 12/03/2015 1:05p [facility] [place], [address] R06.02 Assoc,pc Hospitalists Cirilo I25.10 E11.9 I10 Office Visit 08/12/2015 11:20a [facility] Ari Fox M.D. 85850 E87.2 Hospitalists E11.9 J44.9 Office Visit 06/16/2015 4:00p [facility] IsraelAngela [place], [address] 414.00 M.D. 414.9 250.00 414.01 Office Visit 01/29/2015 1:16p [facility] Edgar Kunia, 11223 414.00 Assoc,pc Hospitalists N.P. 490 786.50 Office Visit 12/20/2014 10:30a [facility] IRIS Brandon 28964VQC 414.9 V45.82 250.00 496 492.8 Office Visit 09/15/2014 1:00p [facility] LindyAngela Devlinquetajosed[place], 03372 414.9 M.D. 410.70 496 414.01 V45.82 Office Visit 09/08/2014 5:58p [facility], Angelina Dexter, 57848 786.50 Hospitalists N.P. 788.20 414.9 250.00 Office Visit 09/08/2014 3:47p [facility] Torsten Aj, 69838 428.0 M.D. Office Visit 09/07/2014 1:53p [facility] Reed De Jesus M.D., 43206 410.70 [facility], FSCAI 414.9 Office Visit 09/07/2014 5:57p [facility], Angelina Dexter, 35433 786.50 Hospitalists N.P. 788.20 414.9 250.00 Office Visit 09/06/2014 5:56p [facility], Angelina Dexter, 83344 786.50 Hospitalists N.P. 496 414.9 250.00 Office Visit 09/05/2014 5:55p [facility], Angelina Dexter, 16667 786.50 Hospitalists N.P. 414.9 496 250.00 Office Visit 03/19/2014 1:17p [facility], Reina Mcdonough, 90982 562.11 Hospitalists M.D. 414.00 250.00 Office Visit 03/18/2014 1:16p [facility], Reina Mcdonough, 70759 562.11 Hospitalists M.D. 414.00 250.00 Office Visit 03/17/2014 1:15p [facility], Reina Mcdonough, 56705 562.11 Hospitalists M.D. 276.2 414.00 250.00 Office Visit 03/07/2014 3:40p [facility] Qutaybeh S. Maghaydah, 67829 786.05 M.D. 414.01 401.1 426.4 794.31 272.4 Office Visit 11/24/2013 3:34p [facility], Reina Mcdonough, 58086 466.0 Hospitalists M.D. 786.50 Office Visit 11/23/2013 3:33p [facility], Reina Mcdonough, 20911 466.0 Hospitalists M.D. 786.50 Office Visit 06/30/2013 10:00a [facility] Qutaybeh S. Maghaydah, 52931 414.01 M.D. 401.1 426.4 272.4 Office Visit 08/21/2012 10:00a [facility] Qutaybeh S. Maghaydah, 35114 414.01 M.D. 401.1 426.4 272.4 Office Visit 12/20/2011 10:20a [facility] Qutaybeh S. Maghaydah, 08266 794.31 M.D. 414.01 401.1 426.4 Office Visit 05/13/2011 10:00a [facility] Qutaybeh S. Maghaydah, 19915 794.31 M.D. 414.01 401.1 426.4 272.4 466.0 492.8 250.02 Office Visit 05/09/2011 9:30a [facility] Qutaybeh S. Maghaydah, 00585 794.31 M.D. 414.01 401.1 426.4 Office Visit 10/22/2010 9:00a [facility] Qutaybeh S. Maghaydah, 85509 414.01 M.D. 401.1 426.4 272.4 Office Visit 03/20/2010 9:20a [facility] Qutaybeh S. Maghaydah, 30003 414.01 M.D. 401.1 426.4 272.4 Office Visit 10/10/2009 8:40a [facility] Qutaybcresencio S. Alma Deliaah, 82819 414.01 M.D. 401.1 426.4 272.4 Office Visit 05/09/2009 8:50a [facility] Qutaybeh S. Simydah, 20096 414.01 M.D. 401.1 786.05 426.4 Office Visit 11/18/2008 11:20a [facility] Qutaybeh S. Simydah, 65502 414.01 M.D. 786.05 426.4 272.4 Office Visit 05/11/2008 11:40a [facility] Qutaybeh S. haydah, 81583 414.01 M.D. 786.05 401.1 V45.82 426.4 272.4 Office Visit 05/04/2008 1:00p [facility] Qutaybcresencio S. Simydah, 09590 414.01 M.D. 786.05 401.1 V45.82 Office Visit 04/28/2008 3:40p [facility] Garytaybcresencio S. Simydah, 45348 414.01 M.D. 786.05 401.1 V45.82 794.31 426.4 Office Visit 02/25/2008 10:20a [facility] Qutaybeh S. Simydah, 54008 414.01 M.D. 786.05 401.1 272.4 V45.82 794.31 426.4 Plan of Care Future Appointment(s):11/28/2017 3:45 pm - Paddy [facility] MD at [facility].11/21/2017 - Sue Mcmanus, [facility]CS82.65xD Nondisp fx of lateral malleolus of l fibula, 7thDFollow up:1 weekL03.116 Cellulitis of left lower limb
[2017-12-15 14:22] VITALS: BP 142/77
--- NOTE | 2017-12-15 21:39 | ED ---
Sheyla Cadet Edward, scribed for Binu Alicia MD on 12/15/17 at 1332 . Adult Trauma - HPI Summary HPI Summary: 87 y/o male presents to the ED c/o immediate onset L hip pain s/p fall minutes [employer]. Associated sx: L knee abrasion. Pt was in the second floor of [facility] when he fell. Clinical assessment team was called. PMHx DM, CVA 2017. Pt has been confused s/p stroke. - History of Current Complaint Stated Complaint: FALL Time Seen by Provider: 12/15/17 13:31 Hx Obtained From: Patient Mechanism of Injury: Fall Onset/Duration: Started Hours Ago Location: Extremities - L hip, L shoulder Aggravating Factor(s): Nothing Alleviating Factor(s): Nothing Associated Signs & Symptoms: Positive: Other: - L knee abrasion - Additional Pertinent History Primary Care Physician: [id number] - Allergy/Home Medications Allergies/Adverse Reactions: Allergies Allergy/AdvReac Type Severity Reaction Status Date / Time baicalin [From Limbrel] Allergy Severe Swelling Verified 11/17/17 18:40 Of Face,Lips,& Throat catechin [From Limbrel] Allergy Severe Swelling Verified 11/17/17 18:40 Of Face,Lips,& Throat haloperidol Allergy Severe See Comment Verified 11/17/17 18:39 pregabalin Allergy See Comment Verified 11/17/17 18:38 captopril AdvReac Coughing Verified 11/17/17 18:37 Flavocoxid (From Limbrel) Allergy Swelling Uncoded 11/17/17 18:42 Of Face,Lips,& Throat Tunafish Allergy Swelling Uncoded 03/27/17 15:48 Of Face,Lips,& Throat PMH/Surg Hx/FS Hx/Imm Hx Previously Healthy: No Endocrine/Hematology History: Reports: Hx Anticoagulant Therapy, Hx Blood Transfusions, Hx Diabetes, Hx Unexplained Bleeding Denies: Hx Anemia Cardiovascular History: Reports: Hx Angina, Hx Coronary Artery Disease, Hx Hypercholesterolemia, Hx Hypertension, Hx Myocardial Infarction, 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 Denies: Hx Congestive Heart Failure, Hx Pacemaker/ICD Respiratory History: Reports: Hx Asthma, Hx Chronic Obstructive Pulmonary Disease (COPD), Hx Pneumonia, Other Respiratory Problems/Disorders - PNEUMONIA GI History: Reports: Hx Gastrointestinal Bleed - 10/2016, Other GI Disorders - Esophagus ulcers, GI bleed History: Reports: Hx Kidney Stones, Other Problems/Disorders - Prostate CA Denies: Hx Renal Disease Musculoskeletal History: Reports: Hx Arthritis - HIPS/ HANDS Sensory History: Reports: Hx Cataracts, Hx Contacts or Glasses, Hx Deafness, Hx Hearing Aid, Hx Hearing Problem, Other Sensory Impairments Denies: Hx Glaucoma, Hx Legally Blind, Hx Macular Degeneration, Hx Vision Problem Opthamlomology History: Reports: Hx Cataracts, Hx Contacts or Glasses, Other Sensory Impairments Denies: Hx Glaucoma, Hx Legally Blind, Hx Macular Degeneration, Hx Vision Problem Neurological History: Reports: Hx Dementia - Mild Psychiatric History: Denies: Hx Anxiety, Hx Panic Disorder - Cancer History Cancer Type, Location and Year: prostate Hx Chemotherapy: Yes - 2006 Hx Radiation Therapy: Yes Hx Palliative Cancer Treatment: No - Surgical History Surgery Procedure, Year, and Place: YOUNG CHILD TONSILLECTOMY ANYI. 1971 RUPTURED APPENDIX [facility]. 2003 2 CARDIAC STENTS STRONG. 2004 PROSTATE [facility]. 2007 BILATERAL TUBES IN EARS [facility] Hx Anesthesia Reactions: No Infectious Disease History: Denies: Hx Clostridium Difficile, Hx Hepatitis, Hx Human Immunodeficiency Virus (HIV), Hx of Known/Suspected MRSA, Hx Shingles, Hx Tuberculosis, Hx Known/ Suspected VRE, Hx Known/Suspected VRSA, Traveled Outside the [place] in Last 30 Days - Family History Known Family History: Positive: None - reviewed & noncontributory, Cardiac Disease - Social History Alcohol Use: None Substance Use Type: Reports: None Hx Tobacco Use: Yes Smoking Status (MU): Former Smoker Type: Cigarettes Have You Smoked in the Last Year: No Review of Systems Constitutional: Negative Eyes: Negative ENT: Negative Cardiovascular: Negative Respiratory: Negative Gastrointestinal: Negative Genitourinary: Negative Positive: Arthralgia - L hip, shoulder Positive: Other - L knee abrasion Neurological: Negative Psychological: Normal All Other Systems Reviewed And Are Negative: Yes Physical Exam - Summary Physical Exam Summary: Appearance: The patient is well-nourished in no acute distress and in no acute pain. Skin: The skin is warm and dry and skin color reflects adequate perfusion. HEENT: ~The head is normocephalic and atraumatic. The pupils are equal and reactive. The conjunctivae are clear and without drainage. ~Nares are patent and without drainage. Mouth reveals moist mucous membranes and the throat is without erythema and exudate. The external ears are intact. The ear canals are patent and without drainage. The tympanic membranes are intact. Neck: the neck is supple with full range of motion and non-tender. There are no carotid bruits. ~There is no neck vein distension. Respiratory: Chest is non-tender. ~Lungs are clear to auscultation and breath sounds are symmetrical and equal. Cardiovascular: Heart is regular rate and rhythm. ~There is no murmur or rub auscultated. ~~There is no peripheral edema and pulses are symmetrical and equal. Abdomen: The abdomen is soft and non-tender. ~There are normal bowel sounds heard in all four quadrants and there is no organomegaly palpated. Musculoskeletal: There is no back tenderness noted. ~Extremities are non-tender with full range of motion. ~There is good capillary refill. There is no peripheral edema or calf tenderness elicited. There is no tenderness with ROM or palpation at the L hip. Pt ambulates without pain. Neurological: Patient is alert and oriented to person, place and time. ~The patient has symmetrical motor strength in all four extremities. ~Cranial nerves are grossly intact. Deep tendon reflexes are symmetrical and equal in all four extremities. Psychiatric: The patient has an appropriate affect and does not exhibit any anxiety or depression. Skin: Patient has an abrasion over the L knee. Triage Information Reviewed: Yes Vital Signs On Initial Exam: Initial Vitals Temp Pulse Resp Pulse Ox 98 F 69 18 96 12/15/17 13:31 12/15/17 13:31 12/15/17 13:31 12/15/17 13:31 Vital Signs Reviewed: Yes Diagnostics - Vital Signs Vital Signs Temp Pulse Resp BP Pulse Ox 12/15/17 14:21 98.2 F 67 20 142/77 92 12/15/17 13:31 98 F 69 18 96 - Laboratory Lab Statement: Any lab studies that have been ordered have been reviewed, and results considered in the medical decision making process. Adult Trauma Course/Dx - Course Course Of Treatment: Mr. Simmons took a fall onto his left side. He sustained a left knee cap abrasion. I could not reproduce any other C/O. He was able to ambulate here with assistance (he normally uses a walker). - Diagnoses Provider Diagnoses: Knee abrasion Discharge - Discharge Plan Condition: Stable Disposition: HOME Patient Education Materials: Fall Prevention for Older Adults (ED), Abrasion ( ED) Referrals: dE Blevins MD [Primary Care Provider] - 4 Days (PLEASE F/U IN 3-5 DAYS) Additional Instructions: RETURN TO THE ED FOR THE RETURN OR WORSENING OF SYMPTOMS The documentation as recorded by the Sheyla herman Edward accurately reflects the service I personally performed and the decisions made by , Binu Alicia MD.
== END 2017-12-15 14:23 | disposition home or self-care (01) ==
LOC: ED 13:25
DX: S80.212A Abrasion, left knee, initial encounter (principal); W19.XXXA Unspecified fall, initial encounter; Y92.239 Unspecified place in hospital as the place of occurrence of the external cause; Z79.01 Long term (current) use of anticoagulants; I25.10 Atherosclerotic heart disease of native coronary artery without angina pectoris; Z87.891 Personal history of nicotine dependence
CPT/HCPCS: 99282

== ENCOUNTER 2018-01-05 07:31 | Emergency (ER) | payer MEDICARE ==
--- OUTSIDE RECORDS SUMMARY | 2018-01-05 07:43 | XMS REPORT ---
:1930 External Reference #:[id number] Author Organization [place] [employer] Address [address] [address] Phone [phone] Care Team Providers Name Role Phone Ed Blevins MD Primary Care Physician Unavailable Payers Type Date Identification Payment Subscriber Numbers Provider Health Maintenance Effective: Policy Number: Medicare Blue Shar Simmons [facility] ([facility]) 10/06/2012 [id number] o Group Number: [id number] [address] PayID: [id number] SINDI Andino [address] Health Maintenance Effective: Policy Number: Medicare Abelardo Chaves [facility] ([facility]) 10/06/2009 [id number] [facility] Expires: 10/06/2012 PayID: [id number] [address] [address] SINDI Andino [address] Problems Date Description Provider Status Onset: 12/20/2011 [...] : (age 71 Years) Father due to [place] : (age 64 Years) Mother due to [...] Unknown 0000 every day ( started 03/28/17 [facility] discharge ) Ferrous Sulfate / Active Tablets 325mg 1 by mouth Unknown 0000 every day( started 03/28/17 [facility] discharge ) Klor-Con M20 / Active Tablets ER 20Meq 1 by mouth Unknown 0000 every day Santyl / Active Ointment 250Unit/GM apply 1 Unknown 0000 gram to affected area twice daily. Irbesartan 07/11/ Hx Tablets 150mg 1 by mouth Felicity, 2013 - every day Ed Elizondo, 11/26/ as 2016 directed Simvastatin 06/20/ Hx Tablets 40mg 90tabs 1 po qd Felicity, 2013 - Ed Elizondo 11/26/ 2016 Qvar 03/07/ Hx Aerosol 1units 2 puffs Stu 2013 - twice a S. 11/11/ day Cristopher Haney M.D. Aspirin 11/18/ Hx Tablets 325mg 1 po qd Garytaboom 2008 - S. 09/14/ Cristopher Cabrera M.D. Plavix 02/24/ Hx Tablets 75mg 90tabs 1 PO qd Garytabomo 2007 - S. 05/11/ Cristopher Vallejo M.D. Vit D 02/24/ Hx one qd Stu 2007 - S. 09/14/ Cristopher Cabrera M.D. Aspirin 02/24/ Hx Tablets 325mg 1-2 PO qd Qutayb 2007 - S. 11/18/ [facility] 2008 Cirilo Avapro 02/24/ Hx Tablets 150mg 90tabs 1 PO qd Qutayb 2007 - S. 09/14/ [facility] 2013 Cirilo Lipitor 02/24/ Hx Tablets 40mg 90tabs 1/2tab qhs Qutaybeh 2007 - S. 05/13/ [facility] 2010 , Cirlio Claritin 02/24/ Hx Tablets 10mg 30tabs PO qd prn Qutaybeh 2007 - S. 11/18/ [facility] 2008 , Cirilo Metoprolol 02/24/ Hx Tablets [facility]tabs [facility] S[facility] 03/02/ [facility] 2013 , Cirilo Advair Diskus 02/24/ Hx Misc 500/50 1 puff bid tayb 2007 - S. 03/07/ [facility] 2013 , Cirilo Proventil HFA / Hx [...] 2016 Vital Signs Date Vital Result Comment 12/19/2017 Height 70 inches 5'10" Weight 187.00 lb Heart Rate 66 /min reg Respiratory Rate 16 /min Pain Level 0 BMI (Body Mass Index) 26.8 kg/m2 12/12/2017 Height 70 inches 5'10" Heart Rate [...] 04/28/2008 PTT (Aptt) 21.6 20.1-28.2 13 1 [facility] Severe Sepsis and Septic Shock Management Bundle Measure requires all lactic acids initially measuring >2.0 mmol/L be repeated. 2 Therapeutic target for the treatment of diabetes mellitus patients is <7% HBA1C, and in selective patients <6.0%. Please refer to [place] [employer] diabetic care guidelines for further information. 3 Platen Grinder: [id number] [place] DRUMMOND 4 Serum levels of PSA measured using the [employer] DXI Hybritech immunoassay should not be interpreted [...] Serum levels of PSA measured using the [employer] DXI Hybritech immunoassay should not be interpreted [...] SERUM LEVELS OF PSA MEASURED USING THE [employer] ACCESS HYBRITECH IMMUNOASSAY SHOULD NOT BE INTERPRETED [...] SERUM LEVELS OF PSA MEASURED USING THE B[employer]oot ACCESS HYBRITECH IMMUNOASSAY SHOULD NOT BE INTERPRETED [...] LEVELS OF PSA MEASURED USING THE LAZ OUMAR ACCESS HYBRITECH IMMUNOASSAY SHOULD NOT BE INTERPRETED [...] Procedures Date CPT Code Description Status 12/12/2017 67605 application of short leg splint Completed 11/21/2017 09904 application of short leg splint Completed 2017 93883 CLSD TX Distal Fib FX (Lateral Malleolus) w/o Completed manipulation 10/13/2017 98978 EKG Tracing & Interpretation Completed 04/15/2017 59121 EKG Tracing & Interpretation Completed 03/28/2017 18553 ECHO Transthorasic Realtime 2D W Doppler & Color Completed [facility] 03/28/2017 94124 EKG, Interpretation Only Completed 11/27/2016 77056 EKG Tracing & Interpretation Completed 10/17/2016 29552 ECHO Transthorasic Realtime 2D W Doppler & Color Completed [facility] 02/16/2016 76031 EKG Tracing & Interpretation Completed 12/04/2015 36850 ECHO Transthorasic Realtime 2D W Doppler & Color Completed [facility] 06/16/2015 88434 EKG Tracing & Interpretation Completed 01/31/2015 47390 Treadmill Interp/Report Only Completed 01/31/2015 24545 Stress Test Supervsn W/Out I/R Completed 09/15/2014 89930 EKG Tracing & Interpretation Completed 09/07/2014 78227 EKG, Interpretation Only Completed 09/06/2014 18553 Left Heart Cath. Incl S/I Coronaries, Angio S/I V Gram Completed If Done 09/06/2014 42862 EKG, Interpretation Only Completed 09/06/2014 12489 Revascularization Acute Total/Subtotal Occlusion Completed 09/06/2014 25558 Percutaneous Transcatheter Placement Of Intracoronary Completed Stent 09/05/2014 17377 EKG, Interpretation Only Completed 03/07/2014 39639 EKG Tracing & Interpretation Completed 11/24/2013 16124 ECHO Transthorasic Realtime 2D W Doppler & Color Completed [facility] 06/30/2013 43786 EKG Tracing & Interpretation Completed 08/21/2012 81296 EKG Tracing & Interpretation Completed 12/20/2011 64036 EKG Tracing & Interpretation Completed 05/13/2011 42746 ECHO Transthoracic, Real-Time 2D With Doppler And Color Completed Flow 05/13/2011 16510 EKG Tracing & Interpretation Completed 05/09/2011 87114 Treadmill Interp/Report Only Completed 05/09/2011 87062 Stress Test Supervsn W/Out I/R Completed 10/22/2010 02399 EKG Tracing & Interpretation Completed 03/20/2010 46737 EKG Tracing & Interpretation Completed 03/19/2010 10687 ECHO Transthorasic Realtime 2D W Doppler & Color Completed [facility] 03/12/2010 49098 Treadmill Interp/Report Only Completed 03/12/2010 80586 Stress Test Supervsn W/Out I/R Completed 10/10/2009 09211 EKG Tracing & Interpretation Completed 05/09/2009 79117 EKG Tracing & Interpretation Completed 05/01/2009 93354 Treadmill Interp/Report Only Completed 05/01/2009 00657 Stress Test Supervsn W/Out I/R Completed 04/20/2009 05328 ECHO Transthoracic, Real-Time 2D With Doppler And Color Completed Flow 11/18/2008 91184 EKG Tracing & Interpretation Completed 05/04/2008 54532 Left Heart Catheterization Completed 05/04/2008 54328 Inj Proc LFT Vent/LFT Atrl Angio Completed 05/04/2008 60590 Inj Proc LFT Vent/LFT Atrl Angio Completed 05/04/2008 13462 Coronary Angiography Completed 05/04/2008 08560 S/I/R Inj Proc Vent And Or Atrial Completed 05/04/2008 19108 S/I/R Inj Proc Vent And Or Atrial Completed 05/04/2008 33699 Selective Coronary Angioplasty Completed 04/28/2008 71602 ECHO/Stress Completed 04/28/2008 58756 ECHO/Stress Completed 04/28/2008 16495 ECHO/Stress Completed 04/28/2008 95616 Stress Test Completed 04/28/2008 22208 Stress Test Completed 03/29/2008 50718 Color Doppler Completed 03/29/2008 48014 Pulse Doppler & Continuous Wave Completed 03/29/2008 23422 Pulse Doppler & Continuous Wave Completed 03/29/2008 67616 Echocardiogram Completed 02/25/2008 53333 EKG Tracing & Interpretation Completed 05/02/2005 12757 Treadmill Interp/Report Only Completed 05/02/2005 58199 Stress Test Supervsn W/Out I/R Completed Encounters Type Date Location Provider CPT E/M Dx Office Visit 11/19/2017 [facility] 39033 L03.116 10:55a 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 E11.621 Office Visit 10/13/2017 9:00[facility] IRIS Brandon 47090JGY I25.118 I71.2 I10 Office Visit 04/15/2017 4:00p [facility] Larisa 31233 R07.9 Yovana Nicholas M.D. D64.9 I51.7 I34.0 I71.2 I25.118 I10 I45.10 I44.0 R94.31 Office Visit 03/28/2017 4:04p [facility], Reina Mcdonough, 86436 R07.9 Hospitalists MArron I25.118 I10 Office Visit 03/27/2017 4:00p [facility], Reina Mcdonough, 38841 R07.9 Hospitalists MArron I25.118 I10 Office Visit 11/27/2016 4:00p [place] [facility] S. Cristopher, 24363 I25.10 MAngelaDAngela I10 I71.9 I45.10 R94.31 Office Visit 10/29/2016 9:21a [facility] Zoey Carver, 41668 R25.8 M.DAngela Office Visit 10/23/2016 10:34a [facility], Reina Mcdonough, 30087 D72.829 Hospitalists MAngelaDAngela D64.9 E11.8 Z79.4 Office Visit 10/20/2016 10:33a [facility],pc Reina Mcdonough, 79619 D72.829 Hospitalists MArron D64.9 E11.8 Office Visit 10/18/2016 10:20a [facility], Reina Mcdonough, 46873 I63.9 Hospitalists M.DAngela D64.9 K92.2 J20.9 Office Visit 10/17/2016 10:19a [facility], Reina Mcdonough, 36679 I63.9 Hospitalists M.D. D64.9 K92.2 J20.9 Office Visit 10/17/2016 11:39a [facility] [place] [address] I63.9 Office Visit 10/16/2016 10:18a [facility], Manisha Carmona, 87582 I63.9 Hospitalists MArron D64.9 K92.2 J20.9 Office Visit 10/16/2016 11:38a [facility] [address] I63.9 Office Visit 10/15/2016 10:17a [facility] Manisha Mathew, 73251 I63.9 Hospitalists M.Raquel D64.9 K92.2 J20.9 Office Visit 10/14/2016 10:17a [facility] Manisha Mathew, 27614 R65.20 Hospitalists M.Raquel D64.9 J20.9 K92.2 Office Visit 10/13/2016 10:16a [facility] Manisha Mathew, 54927 R65.20 Hospitalists MArron D64.9 J20.9 K92.2 Office Visit 10/13/2016 7:00a [facility] Salgado, 26710 K92.2 [facility] Office Visit 10/12/2016 10:15a [place] [facility] Manisha Mathew, 51256 R65.20 Assoc, Hospitalists Cirilo D64.9 J20.9 K92.2 Office Visit 10/11/2016 10:14[place] [facility] [place], [address] R65.20 Assoc, Hospitalists MArron J20.9 J44.1 A41.9 Office Visit 10/11/2016 7:00a [facility] [place] [address] K92.2 [facility] Office Visit 02/16/2016 9:40a [facility] [facility] Qutaybeh S. 18914 I25.10 Cirilo Nicholas E11.9 I10 J44.9 R94.31 I71.9 Office Visit 12/04/2015 1:06p [facility] Damon Inman, 78738 R06.02 Hospitalists Cirilo I25.10 E11.9 I10 Office Visit 12/03/2015 1:05p [facility] [place], [address] R06.02 Assoc, Hospitalists Cirilo I25.10 E11.9 I10 Office Visit 08/12/2015 11:20a [facility] Ari Fox M.D. 87526 E87.2 Hospitalists E11.9 J44.9 Office Visit 06/16/2015 4:00p [facility], 00451 414.00 M.D. 414.9 250.00 414.01 Office Visit 01/29/2015 1:[facility]p [facility] [place], [address] 414.00 Assoc, Hospitalists N.P. 490 786.50 Office Visit 12/20/2014 10:30a [facility] IRIS Brandon [id number] 414.9 V45.82 250.00 496 492.8 Office Visit 09/15/2014 1:00p [facility], 76381 414.9 M.D. 410.70 496 414.01 V45.82 Office Visit 09/08/2014 3:47p [facility] Torsten Aj, 72266 428.0 M.D. Office Visit 09/08/2014 5:58p [facility], Angelina Dexter, 43531 786.50 Hospitalists N.P. 788.20 414.9 250.00 Office Visit 09/07/2014 1:53p [facility] Reed De Jesus M.D., 67371 410.70 [facility], FSCAI 414.9 Office Visit 09/07/2014 5:57p [facility], Angelina Dexter, 28113 786.50 Hospitalists N.P. 788.20 414.9 250.00 Office Visit 09/06/2014 5:56p [facility], Angelina Dexter, 66386 786.50 Hospitalists N.P. 496 414.9 250.00 Office Visit 09/05/2014 5:55p [facility], Angelina Dexter, 32810 786.50 Hospitalists N.P. 414.9 496 250.00 Office Visit 03/19/2014 1:17p [facility], Reina Mcdonough, 08418 562.11 Hospitalists M.D. 414.00 250.00 Office Visit 03/18/2014 1:16p [facility], Reina Mcdonough, 81978 562.11 Hospitalists M.D. 414.00 250.00 Office Visit 03/17/2014 1:15p [facility], Reina Mcdonough, 23750 562.11 Hospitalists M.D. 276.2 414.00 250.00 Office Visit 03/07/2014 3:40p [facility] Qutaybeh S. Maghaydah, 32935 786.05 M.D. 414.01 401.1 426.4 794.31 272.4 Office Visit 11/24/2013 3:34p [facility], Reina Mcdonough, 75274 466.0 Hospitalists M.D. 786.50 Office Visit 11/23/2013 3:33p [facility], Reina Mcdonough, 09811 466.0 Hospitalists M.D. 786.50 Office Visit 06/30/2013 10:00a [facility] Qutaybeh S. Maghaydah, 09307 414.01 M.D. 401.1 426.4 272.4 Office Visit 08/21/2012 10:00a [facility] Qutaybeh S. Maghaydah, 33610 414.01 M.D. 401.1 426.4 272.4 Office Visit 12/20/2011 10:20a [facility] Qutaybeh S. Maghaydah, 53544 794.31 M.D. 414.01 401.1 426.4 Office Visit 05/13/2011 10:00a [facility] Qutaybeh S. Maghaydah, 51397 794.31 M.D. 414.01 401.1 426.4 272.4 466.0 492.8 250.02 Office Visit 05/09/2011 9:30a [facility] Qutaybeh S. Maghaydah, 36542 794.31 M.D. 414.01 401.1 426.4 Office Visit 10/22/2010 9:00a [facility] Qutaybeh S. Maghaydah, 56882 414.01 M.D. 401.1 426.4 272.4 Office Visit 03/20/2010 9:20a [facility] Qutaboom S. Cristopher, 67930 414.01 M.D. 401.1 426.4 272.4 Office Visit 10/10/2009 8:40a [facility] Qutaybcresencio S. Alma Deliaah, 96096 414.01 M.D. 401.1 426.4 272.4 Office Visit 05/09/2009 8:50a [facility] Garytaybcresencio S. Cristopher, 99739 414.01 M.D. 401.1 786.05 426.4 Office Visit 11/18/2008 11:20a [facility] Garytaybcresencio S. Cristopher, 66872 414.01 M.D. 786.05 426.4 272.4 Office Visit 05/11/2008 11:40a [facility] Garytaboom S. Cristopher, 53652 414.01 M.D. 786.05 401.1 V45.82 426.4 272.4 Office Visit 05/04/2008 1:00p [facility] Garytaybcresencio S. Cristopher, 00093 414.01 M.D. 786.05 401.1 V45.82 Office Visit 04/28/2008 3:40p [facility] Garytaybcresencio S. Alma Deliaah, 61893 414.01 M.D. 786.05 401.1 V45.82 794.31 426.4 Office Visit 02/25/2008 10:20a [facility] Garytaboom S. Cristopher, 94445 414.01 M.D. 786.05 401.1 272.4 V45.82 794.31 426.4 Plan of Care Future Appointment(s):01/09/2018 9:45 am - Paddy Bryan MD at [facility]..12/19/2017 - Paddy Bryan, [id number] Abrasion, left knee, initial encounterFollow up:has appt
[2018-01-05 08:56] LABS: Urine Appearance Clear; Urine Blood 2+ (Negative); Urine Color Yellow; Urine Ketones Negative (Negative); Urine Protein 1+(30 mg/dL) (Negative); Urine Specific Gravity 1.015 (1.010-1.030); Urine Urobilinogen Negative (Negative)
[2018-01-05 09:25] LABS: ABS Basophils 0.1 10^3/ul (0-0.2); ABS Eosinophils 0.1 10^3/ul (0-0.6); ABS Lymphocytes 1.6 10^3/ul (1.0-4.8); ABS Monocytes 0.7 10^3/ul (0-0.8); ABS Neutrophils 5.8 10^3/ul (1.5-7.7); ABS Nucleated RBC 0 10^3/ul; Eosinophil % 1.1 % (0-6); Hematocrit 42 % (42-52); Hemoglobin 14.2 g/dl (14.0-18.0); Lymphocyte % 19.2 % (25-47); Mean Corpuscular HGB Conc 34 g/dl (31-36); Mean Corpuscular Hemoglobin 30 pg (27-31); Mean Corpuscular Volume 87 fL (80-94); Nucleated Red Blood Cells % 0; Platelet Count 204 10^3/ul (150-450); Red Blood Count 4.81 10^6/ul (4.0-5.4); Red Cell Distribution Width 15 % (10.5-15); White Blood Count 8.4 10^3/ul (3.5-10.8)
[2018-01-05 09:36] LABS: INR 0.86 (0.77-1.02)
[2018-01-05 09:46] LABS: EGFR Non-African American 54.9 (>60)
[2018-01-05 12:17] VITALS: BP 158/67
--- NOTE | 2018-01-06 10:01 | ED ---
Nomi Cadet Angela, scribed for Migel Salcido MD on 01/05/18 at 0753 . GI/ HPI - HPI Summary HPI Summary: This pt is a 87 y/o male, accompanied by his , presenting to [facility] c/o inability to void since last evening. reports the pt last urinated last evening, once at night. Pt has been unable to urinate since then. He has had these problems before in the past. Pt's urologist is Dr. Webb. Pt has had a ramey catheter in the past. - History of Current Complaint Chief Complaint: EDUrogenitalProblems Stated Complaint: UNABLE TO URINATE Hx Obtained From: Patient, Family/[employer] T[employer] Worker - Onset/Duration: Started Hours Ago, Still Present Timing: Lasting Hours Current Severity: Moderate Pain Intensity: 6 - tightness in abd Location of Pain: Diffuse Associated Signs and Symptoms: Positive: Other: - POS: abdominal distension. Negative: Nausea, Vomiting, Fever, Chest Pain Aggravating Factor(s): Nothing Alleviating Factor(s): Nothing - Additional Pertinent History Primary Care Physician: [id number] - Allergy/Home Medications Allergies/Adverse Reactions: Allergies Allergy/AdvReac Type Severity Reaction Status Date / Time baicalin [From Limbrel] Allergy Severe Swelling Verified 01/05/18 07:45 Of Face,Lips,& Throat catechin [From Limbrel] Allergy Severe Swelling Verified 01/05/18 07:45 Of Face,Lips,& Throat haloperidol Allergy Severe See Comment Verified 01/05/18 07:45 pregabalin Allergy See Comment Verified 01/05/18 07:45 captopril AdvReac Coughing Verified 01/05/18 07:45 Flavocoxid (From Limbrel) Allergy Swelling Uncoded 11/17/17 18:42 Of Face,Lips,& Throat Tunafish Allergy Swelling Uncoded 03/27/17 15:48 Of Face,Lips,& Throat Home Medications: Home Medications Lansoprazole CAP (NF) [Prevacid CAP (NF)] 30 mg PO DAILY 01/05/18 [History Confirmed 01/05/18] Potassium Chlor TAB* [Klor Con ER TAB*] 20 meq PO DAILY 01/05/18 [History Confirmed 01/05/18] PMH/Surg Hx/FS Hx/Imm Hx Endocrine/Hematology History: Reports: Hx Anticoagulant Therapy, Hx Blood Transfusions, Hx Diabetes, Hx Unexplained Bleeding Denies: Hx Anemia Cardiovascular History: Reports: Hx Angina, Hx Coronary Artery Disease, Hx Hypercholesterolemia, Hx Hypertension, Hx Myocardial Infarction, 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 Denies: Hx Congestive Heart Failure, Hx Pacemaker/ICD Respiratory History: Reports: Hx Asthma, Hx Chronic Obstructive Pulmonary Disease (COPD), Hx Pneumonia, Other Respiratory Problems/Disorders - PNEUMONIA GI History: Reports: Hx Gastrointestinal Bleed - 10/2016, Other GI Disorders - Esophagus ulcers, GI bleed History: Reports: Hx Kidney Stones, Other Problems/Disorders - Prostate CA Denies: Hx Renal Disease Musculoskeletal History: Reports: Hx Arthritis - HIPS/ HANDS Sensory History: Reports: Hx Cataracts, Hx Contacts or Glasses, Hx Deafness, Hx Hearing Aid, Hx Hearing Problem, Other Sensory Impairments Denies: Hx Glaucoma, Hx Legally Blind, Hx Macular Degeneration, Hx Vision Problem Opthamlomology History: Reports: Hx Cataracts, Hx Contacts or Glasses, Other Sensory Impairments Denies: Hx Glaucoma, Hx Legally Blind, Hx Macular Degeneration, Hx Vision Problem Neurological History: Reports: Hx Dementia - Mild Psychiatric History: Denies: Hx Anxiety, Hx Panic Disorder - Cancer History Cancer Type, Location and Year: prostate Hx Chemotherapy: Yes - 2006 Hx Radiation Therapy: Yes Hx Palliative Cancer Treatment: No - Surgical History Surgery Procedure, Year, and Place: YOUNG CHILD TONSILLECTOMY ANYI. 1972 RUPTURED APPENDIX ANYI. 2003 2 CARDIAC STENTS STRONG. 2005 PROSTATE [facility]. 2007 BILATERAL TUBES IN EARS [facility] Hx Anesthesia Reactions: No Infectious Disease History: No Infectious Disease History: Denies: Hx Clostridium Difficile, Hx Hepatitis, Hx Human Immunodeficiency Virus (HIV), Hx of Known/Suspected MRSA, Hx Shingles, Hx Tuberculosis, Hx Known/ Suspected VRE, Hx Known/Suspected VRSA, Traveled Outside the [place] in Last 30 Days - Family History Known Family History: Positive: Cardiac Disease - Social History Alcohol Use: None Substance Use Type: Reports: None Hx Tobacco Use: Yes Smoking Status (MU): Former Smoker Type: Cigarettes Have You Smoked in the Last Year: No Review of Systems Negative: Fever ENT: Negative Cardiovascular: Negative Gastrointestinal: Other - abd distension Genitourinary: Other - inability to void Skin: Negative Neurological: Negative All Other Systems Reviewed And Are Negative: Yes Physical Exam - Summary Physical Exam Summary: VITAL SIGNS: Reviewed. GENERAL: Patient is a well-developed and nourished male who is lying comfortable in the stretcher. Patient is not in any acute respiratory distress. HEAD AND FACE: No signs of trauma. No ecchymosis, hematomas or skull depressions. No sinus tenderness. EYES: PERRLA, EOMI x 2, No injected conjunctiva, no nystagmus. EARS: Hearing grossly intact. Ear canals and tympanic membranes are within normal limits. MOUTH: Oropharynx within normal limits. NECK: Supple, trachea is midline, no adenopathy, no JVD, no carotid bruit, no c- spine tenderness, neck with full ROM. CHEST: Symmetric, no tenderness at palpation LUNGS: Clear to auscultation bilaterally. No wheezing or crackles. CVS: Regular rate and rhythm, S1 and S2 present, no murmurs or gallops appreciated. ABDOMEN: Soft, non-tender. Lower abdominal distension. No rebound no guarding, and no masses palpated. Bowel sounds are normal. EXTREMITIES: FROM in all major joints, no edema, no cyanosis or clubbing. Cast in left lower extremity. NEURO: Alert and oriented x 3. No acute neurological deficits. Speech is normal and follows commands. SKIN: Dry and warm Triage Information Reviewed: Yes Vital Signs On Initial Exam: Initial Vitals Temp Pulse Resp BP Pulse Ox 98.6 F 82 16 164/89 96 01/05/18 07:34 01/05/18 07:34 01/05/18 07:34 01/05/18 07:34 01/05/18 07:34 Vital Signs Reviewed: Yes Diagnostics - Vital Signs Vital Signs Temp Pulse Resp BP Pulse Ox 01/05/18 07:34 98.6 F 82 16 164/89 96 - Laboratory Result Diagrams: 01/05/18 09:14 01/05/18 09:14 Lab Statement: Any lab studies that have been ordered have been reviewed, and results considered in the medical decision making process. GIGU Course/Dx - Course Assessment/Plan: This pt is a 87 y/o male, accompanied by his , presenting to [facility] c/o inability to void since last evening. reports the pt last urinated last evening, once at night. Pt has been unable to urinate since then. He has had these problems before in the past. Pt's urologist is Dr. Webb. Pt has had a ramey catheter in the past. Test results without any significant abnormalities except for sodium of 130, glucose of 240. Urinalysis shows 2+ blood and 2+ glucose. #16 ramey catheter was inserted and drained 1500 cc of urine. I discussed pt care with Dr. Webb, urologist, who recommends to discharge the pt home and follow up in his office. Therefore he will be discharged to home with follow up from Dr. Webb and his PCP. I discussed all the findings and test results with the patient and his . All questions were answered to patient satisfaction. There were no further complaints or concerns. He is instructed to return to the ED for any worsening or new symptoms. Pt is hemodynamically stable, alert and oriented x3. - Diagnoses Provider Diagnoses: Urinary retention - Physician Notifications Discussed Care Of Patient With: Timothy Webb Time Discussed With Above Provider: 10:08 Instructed by Provider To: Other - I discussed pt care with Dr. Webb, urologist, who recommends to discharge the pt home and follow up in his office. Discharge - Sign-Out/Discharge Documenting (check all that apply): Discharge - discharge to home - Discharge Plan Condition: Stable Disposition: HOME Patient Education Materials: Urinary Retention in Men (ED) Referrals: Ed Blevins MD [Primary Care Provider] - Timothy Webb MD [Medical Doctor] - Additional Instructions: Please follow up with Dr. Webb and your primary care provider. RETURN TO THE ED FOR ANY NEW OR WORSENING SYMPTOMS. The documentation as recorded by the Nomi herman Angela accurately reflects the service I personally performed and the decisions made by , Migel Salcido MD.
== END 2018-01-05 11:20 | disposition home or self-care (01) ==
LOC: ED 07:31
DX: R33.9 Retention of urine, unspecified (principal); Z88.8 Allergy status to other drugs, medicaments and biological substances; Z79.01 Long term (current) use of anticoagulants; I25.119 Atherosclerotic heart disease of native coronary artery with unspecified angina pectoris; I10 Essential (primary) hypertension; I25.2 Old myocardial infarction; J44.9 Chronic obstructive pulmonary disease, unspecified; J45.909 Unspecified asthma, uncomplicated; Z87.891 Personal history of nicotine dependence
CPT/HCPCS: 36415; 80053; 81003; 81015; 85025; 85610; 85730; 86850; 86900; 86901; 87086; 99282

== ENCOUNTER 2018-01-09 03:22 | Emergency (ER) | payer MEDICARE ==
[2018-01-09 04:29] VITALS: BP 149/68
--- NOTE | 2018-01-09 04:36 | ED ---
Vira Cadet Rebecca, scribed for Asya Graf MD on 01/09/18 at 0357 . GI/ HPI - HPI Summary HPI Summary: Pt is an 87 y/o M who presents to ED s/p cutting out catheter with scissors. Pt' s reported that approximately 30 minutes [employer] WORK[employer], the pt "didn't want urine cath anymore and cut it with scissors" per triage. Further states he "still has tube in penis" per nurse's triage. reports that he should be seeing Dr. Webb (urology) in a week. PMHx prostate CA with radiation in 2006 and prostate removal. PMHx dementia. 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 Negative: Fever Aggravating Factor(s): Nothing Alleviating Factor(s): Nothing - Additional Pertinent History Primary Care Physician: [id number] - Allergy/Home Medications Allergies/Adverse Reactions: Allergies Allergy/AdvReac Type Severity Reaction Status Date / Time baicalin [From Limbrel] Allergy Severe Swelling Verified 01/05/18 07:45 Of Face,Lips,& Throat catechin [From Limbrel] Allergy Severe Swelling Verified 01/05/18 07:45 Of Face,Lips,& Throat haloperidol Allergy Severe See Comment Verified 01/05/18 07:45 pregabalin Allergy See Comment Verified 01/05/18 07:45 captopril AdvReac Coughing Verified 01/05/18 07:45 Flavocoxid (From Limbrel) Allergy Swelling Uncoded 11/17/17 18:42 Of Face,Lips,& Throat Tunafish Allergy Swelling Uncoded 03/27/17 15:48 Of Face,Lips,& Throat PMH/Surg Hx/FS Hx/Imm Hx Endocrine/Hematology History: Reports: Hx Anticoagulant Therapy, Hx Blood Transfusions, Hx Diabetes, Hx Unexplained Bleeding Denies: Hx Anemia Cardiovascular History: Reports: Hx Angina, Hx Coronary Artery Disease, Hx Hypercholesterolemia, Hx Hypertension, Hx Myocardial Infarction, 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 Denies: Hx Congestive Heart Failure, Hx Pacemaker/ICD Respiratory History: Reports: Hx Asthma, Hx Chronic Obstructive Pulmonary Disease (COPD), Hx Pneumonia, Other Respiratory Problems/Disorders - PNEUMONIA GI History: Reports: Hx Gastrointestinal Bleed - 10/2016, Other GI Disorders - Esophagus ulcers, GI bleed History: Reports: Hx Kidney Stones, Other Problems/Disorders - Prostate CA Denies: Hx Renal Disease Musculoskeletal History: Reports: Hx Arthritis - HIPS/ HANDS Sensory History: Reports: Hx Cataracts, Hx Contacts or Glasses, Hx Deafness, Hx Hearing Aid, Hx Hearing Problem, Other Sensory Impairments Denies: Hx Glaucoma, Hx Legally Blind, Hx Macular Degeneration, Hx Vision Problem Opthamlomology History: Reports: Hx Cataracts, Hx Contacts or Glasses, Other Sensory Impairments Denies: Hx Glaucoma, Hx Legally Blind, Hx Macular Degeneration, Hx Vision Problem Neurological History: Reports: Hx Dementia - Mild Psychiatric History: Denies: Hx Anxiety, Hx Panic Disorder - Cancer History Cancer Type, Location and Year: prostate Hx Chemotherapy: Yes - 2006 Hx Radiation Therapy: Yes Hx Palliative Cancer Treatment: No - Surgical History Surgery Procedure, Year, and Place: YOUNG CHILD TONSILLECTOMY [facility]. 1972 RUPTURED APPENDIX [facility]. 2003 2 CARDIAC STENTS STRONG. 2004 PROSTATE [facility]. 2007 BILATERAL TUBES IN EARS [facility] Hx Anesthesia Reactions: No Infectious Disease History: No Infectious Disease History: Denies: Hx Clostridium Difficile, Hx Hepatitis, Hx Human Immunodeficiency Virus (HIV), Hx of Known/Suspected MRSA, Hx Shingles, Hx Tuberculosis, Hx Known/ Suspected VRE, Hx Known/Suspected VRSA, Traveled Outside the [place] in Last 30 Days - Family History Known Family History: Positive: Cardiac Disease - Social History Alcohol Use: None Substance Use Type: Reports: None Hx Tobacco Use: Yes Smoking Status (MU): Former Smoker Type: Cigarettes Have You Smoked in the Last Year: No Review of Systems Negative: Fever Positive: other - Catheter removed [employer] 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 GENERAL: ~Patient is a well-developed and nourished male who is lying comfortable in the stretcher. Patient is not in any acute respiratory distress. HEAD AND FACE: No signs of trauma. No ecchymosis, hematomas or skull depressions. No sinus tenderness. EYES: PERRLA, EOMI x 2, No injected conjunctiva, no nystagmus. EARS: Hearing grossly intact. Ear canals and tympanic membranes are within normal limits. MOUTH: Oropharynx within normal limits. NECK: Supple, trachea is midline, no adenopathy, no JVD, no carotid bruit, no c- spine tenderness, neck with full ROM. CHEST: Symmetric, no tenderness at palpation LUNGS: Clear to auscultation bilaterally. No wheezing or crackles. CVS: Regular rate and rhythm, S1 and S2 present, no murmurs or gallops appreciated. ABDOMEN: Soft, non-tender. Abdomen is distended with some suprapubic fullness. No rebound no guarding, and no masses palpated. Bowel sounds are normal. EXTREMITIES: FROM in all major joints, no edema, no cyanosis or clubbing. NEURO: Alert and oriented x 3. No acute neurological deficits. Speech is normal and follows commands. SKIN: Dry and warm Triage Information Reviewed: Yes Vital Signs On Initial Exam: Initial Vitals Temp Pulse Resp BP Pulse Ox 98.7 F 76 16 152/65 99 01/09/18 03:26 01/09/18 03:26 01/09/18 03:26 01/09/18 03:26 01/09/18 03:26 Vital Signs Reviewed: Yes Diagnostics - Vital Signs Vital Signs Temp Pulse Resp BP Pulse Ox 01/09/18 03:26 98.7 F 76 16 152/65 99 - Laboratory Lab Statement: Any lab studies that have been ordered have been reviewed, and results considered in the medical decision making process. GIGU Course/Dx - Course Assessment/Plan: Pt is an 87 y/o M who presents to ED s/p cutting out catheter with scissors. Pt's reported that approximately 30 minutes [employer] WORK[employer], the pt "didn't want urine cath anymore and cut it with scissors" per triage. Further states he "still has tube in penis" per nurse's triage. reports that he should be seeing Dr. Webb (urology) in a week.PMHx prostate CA with radiation in 2006 and prostate removal. PMHx dementia. 16 [place] ramey catheter was placed by nursing staff. There is some light bloody urine in the bag. Pt will be D/C to home with Dx of ramey catheter problem with a followup with Dr. Webb in 1 week as planned. Allergies noted. - Diagnoses Provider Diagnoses: Ramey catheter problem Discharge - Sign-Out/Discharge Documenting (check all that apply): Discharge - Discharge - Discharge Plan Condition: Stable Disposition: HOME Patient Education Materials: Ramey Catheter Placement and Care (ED) Referrals: Timothy Webb MD [Medical Doctor] - 1 Week Additional Instructions: Follow up with Dr. Webb in 1 week, as already scheduled. RETURN TO EMERGENCY DEPARTMENT FOR ANY NEW OR WORSENING SYMPTOMS The documentation as recorded by the Vira herman Rebecca accurately reflects the service I personally performed and the decisions made by , Asya Graf MD.
== END 2018-01-09 04:27 | disposition home or self-care (01) ==
LOC: ED 03:22
DX: T85.9XXA Unspecified complication of internal prosthetic device, implant and graft, initial encounter (principal); Y84.6 Urinary catheterization as the cause of abnormal reaction of the patient, or of later complication, without mention of misadventure at the time of the procedure; Y92.9 Unspecified place or not applicable; Z85.46 Personal history of malignant neoplasm of prostate; Z87.891 Personal history of nicotine dependence; Z79.01 Long term (current) use of anticoagulants; E11.9 Type 2 diabetes mellitus without complications; J44.9 Chronic obstructive pulmonary disease, unspecified
CPT/HCPCS: 99282

== ENCOUNTER 2018-05-03 12:11 | Inpatient (IN) | payer MEDICARE ==
[2018-05-03] MEDS ORDERED: Albuterol/Ipratropium NEB.SOL* Albuterol 2.5 MG/Ipratropium 0.5 MG 3 ML ONE (12:25)
[2018-05-03] MEDS ORDERED: methylPREDNISolone 125 MG* 2 ML VIAL IV ONE (12:30)
[2018-05-03] MEDS ORDERED: methylPREDNISolone 125 MG* 2 ML VIAL ONE (12:30)
[2018-05-03] MEDS: Albuterol/Ipratropium NEB.SOL* Albuterol 2.5 MG/Ipratropium 0.5 MG 3 ML INH SCH ×2 (12:41→12:45)
--- OUTSIDE RECORDS SUMMARY | 2018-05-03 12:49 | XMS REPORT ---
:1930 External Reference #:[id number] Author Organization [facility] Address [address] [place] [address] Phone [phone] Care Team Providers Name Role Phone Ed Bleivns M.D. Primary Care Physician Unavailable Payers Type Date Identification Numbers Payment Provider Subscriber Commercial Policy Number: [id number] [facility] Medicare Advnt [employer] Number: [id number] [address] [address] PayID: [id number] [place] [address] Problems Date Description Provider Status Onset: 03/20/2015 Musculoskeletal disorder of the Librado Meza M.D. Active neck Onset: 02/24/2015 Sore Throat Librado Meza M.D. Active Onset: 02/24/2015 Otalgia Librado Meza M.D. Active Onset: 12/25/2011 Sensorineural hearing loss, Librado Meza M.D. Active bilateral Onset: 12/25/2011 Perforation of tympanic membrane Librado Meza M.D. Active Onset: 06/11/2011 Impacted cerumen Librado Meza M.D. 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 Family History Date Family Member(s) Problem(s) Comments Father Asthma Father Heart Attack Mother Diabetes Mother Heart Disease Social History Type Date Description Comments Occupation Retired Cigarette Use Former cigarette smoker, Quit 51 Years Ago, Smoked 1 YEARS Pack A Day For 8 Cigars Never Smoked Cigars Pipe Never Smoked A Pipe Smokeless Tobacco Never Used Smokeless Tobacco ETOH Use Currently rarely consumes alcohol Smoking Patient is a former smoker Allergies, Adverse Reactions, Alerts Date Description Reaction Status Severity Comments 05/03/2013 Lyrica swelling/sore mouth and tongue active 05/03/2013 Captopril active 05/31/2014 Limbrel active 05/31/2014 TUNA active Medications Medication Date Status Form Strength Qnty SIG Indications Ordering Provider Tums Active Chewtabs 500mg 2 by mouth Darlow, /0000 every 2 Ed hours for M.D. gerd Clopidogrel Active Tablets 75mg Once daily Darlow, Bisulfate 0000 Ed M.D. Aspirin Active Tablets 81mg 1 by mouth Darlow, /0000 once a day Ed M.D. Hydrochlorothiazi Active Tablets 25mg 1 by mouth Darlow, de /0000 every day Ed M.D. Metoprolol Active Tablets 50mg 1 by mouth Darlow, Tartrate /0000 every day Ed M.D. Glipizide ER Active Tablets ER 2.5mg 1 by mouth Darlow, /0000 24HR every day Ed M.D. Nitrostat Active Tablets Sub 0.4mg 1 tab Darlow, sublingual Ed every 5 M.D. mins x 3 as needed for chest pain Albuterol HFA Active Aerosol 90mcg/Act 2 puffs , every 2 to Ed 4 hours as M.D. needed for wheezing Montelukast Active Tablets 10mg Once Daily Darlow, Sodium Ed M.D. Vesicare Active Tablets 10mg 1 tab Darlow, daily Ed M.D. Dulera Active Aerosol 200-5mcg/ Darlow, Act Ed M.D. Atorvastatin Active Tablets 80mg 1 tab Darlow, Calcium daily Ed M.D. Klor-Con M20 Active Tablets ER 20Meq as Darlow, directed Ed M.D. Lansoprazole Active Capsules DR 30mg 1 tab Darlow, /0000 daily Ed M.D. Losartan Active Tablets 50mg Darlow, Potassium /0000 Ed M.D. Lantus Solostar Active Solution 100Unit/M as Darlow, Pen-Inject L directed Ed M.DAngela Ferrimin 150 Active Tablets 150mg 1 tab Unknown daily Vitamin C Active Chewtabs 500mg daily Unknown /0000 Vitamin D3 Active Chewtabs 1000Unit as Unknown Gummies Adult /0000 directed Acetaminophen Active Tablets 325mg take as Unknown /0000 directed Ciprodex 05/03 Hx Suspension 0.3-0.1% 2unit 4 drops 384.20 Librado N. 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 Fur both ears Strominge - bid mix Cirilo mcfarland 03/08 with /2014 oil and drop in ear Ciprodex 11/15 Hx Suspension 0.3-0.1% 2unit 4 drops 381.4 Librado N. s left ear Strominge - bid Cirilo mcfarland 12/03 Ciprodex 06/17 Hx Suspension 0.3-0.1% 1unit 4 drops 381.19 Librado N. s right ear Strominge - bid Cirilo mcfarland 10/01 Floxin 01/31 Hx Solution 0.3% 10uni 4 gtt to ts left ear Shelly Jules, - twice A MD 02/11 day for days Lipitor 06/04 Hx Tablets 20mg - 12/03 Avapro 06/04 Hx Tablets 150mg once daily Felicity Ed Christina M.D. 03/08 Ciprodex 01/28 Hx Suspension 0.3%;0.1 1unit 4 drops 381.4 % s left ear J. - bid hDaval 06/05 Jeanette.Raquel Ciprodex 12/27 Hx Suspension 0.3%;0.1 1unit 4 drops 382.00 % s left ear J. - bid Dhaval, 06/05 Jeanette.Raquel Omnicef 12/27 Hx Capsules 300mg 20cap 1 po bid 461.2 s Solo Puentes 06/05 Cirilo Captopril Hx Tablets 50mg Unknown / - 06/05 Plavix 00 Hx Tablets 75mg Unknown / - 05/11 Metoprolol Hx Tablets 50mg 1/2 tab Darlow, Tartrate twice Ed - daily M.D. 03/08 Hydrochlorothiazi Hx Tablets 25mg once daily Darlow, de Ed - MArron 03/08 Aspirin Buffered Hx Caplets 325mg Unknown s - 03/08 Nitroglyceride Hx Unknown / - 12/03 Advair Diskus Hx Inhaler 500mcg;50 Unknown mcg - 05/31 Plavix Hx 75mg Once daily Ed Christina MArron 03/08 Benadryl / Hx Unknown - 10/15 Mucinex Hx Unknown - 10/15 ? Abx Hx Unknown / - 12/03 Tessalon Hx Unknown / - 12/03 Calcium / Hx Unknown / - 12/03 Tums 00/ Hx as needed Self / - 03/08 Ventolin HFA Hx 1-2 puffs as needed Ed - MArron 05/31 Ibuprofen Hx 200mg prn Self / - 05/31 Zocor Hx Tablets 20mg Unknown - 05/03 Singulair Hx Unknown / - 01/19 Vitamin D 00/00 Hx once daily Self - 03/08 Vitamin C Hx once daily Self - 03/08 Metformin HCL 00 Hx ?mg once daily Dar Ed - MArron 03/08 Simvastatin Hx 20mg one po qd Darlow Ed - M.D. 03/08 Limbrel 00 Hx ?mg as Darlow directed Ed - M.Raquel 05/31 Diphenoxylate-Atr Hx 2.5-0.025 take two Darlow, opine /0000 mg tablets Ed - daily M.D. 05/31 Singulair Hx 10mg Once Daily Darlow, /0000 Ed - M.D. 03/08 Albuterol HFA Hx Aerosol 90mcg/Act 2unit 2 puffs Darlow, /0000 s every 2 to Ed - 4 hours as M.D. 03/08 Nitrostat Hx Tablets Sub 0.4mg 1 tab Mauser, /0000 sublingual Isaac - every 5 M.D. 03/08 mins x as needed for chest pain Glipizide ER Hx Tablets ER 2.5mg one tab Darlow, /0000 24HR daily [place] - M.D. 03/08 Qvar Hx Aerosol 80mcg/Act 3unit inhale 2 Darlow, /0000 s puffs by Ed - mouth 2 M.D. 03/08 times per day for asthma. use with spacer Pertussin Hx Take as Self /0000 needed for - cough and 03/08 congestion /2014 Vitamin D Hx Capsules 2000Unit 1 by mouth Darlow, /0000 every week [place] - M.D. 03/03 Qvar Hx Aerosol 80mcg/Act inhale 2 Darlow, /0000 puffs by Ed - mouth 2 M.D. 03/03 times per day for asthma. use with spacer Simvastatin Hx Tablets 40mg 1 by mouth Darlow, /0000 every day [place] - M.D. 03/03 Avapro Hx Tablets 150mg as Darlow, /0000 directed Ed - M.D. 03/03 Diphenoxylate-Atr Hx Tablets 2.5-0.025 As Darlow, opine /0000 mg directed Ed - M.D. 03/03 Nystatin-Triamcin Hx Cream 154801-9. Apply Unknown olone /0000 1Unit/GM- Twice A - % Day 03/03 Ciprodex Hx Suspension 0.3-0.1% 4 drops in Darlow, /0000 each ear Ed - twice M.D. 04/22 Immunizations CPT Code Status Date Vaccine Lot # 31057 Given 07/11/2014 Influenza Virus Vaccine, 3 Years Of Age And Above, Intramuscular 30467 Given Unknown Prevnar 13 For Intramuscular Use 64196 Given Unknown Prevnar 13 For Intramuscular Use Vital Signs Date Vital Result Comment 04/22/2018 Weight 182.00 lb Weight in kg's 82.555 Height 70 inches 5'10" Height in cm's 177.8 cm BMI (Body Mass Index) 26.1 kg/m2 03/24/2018 Weight 180.00 lb Weight in kg's 81.648 Height 70 inches 5'10" Height in cm's 177.8 cm BMI (Body Mass Index) 25.8 kg/m2 09/10/2017 BP Systolic 178 mmHg BP Diastolic 90 mmHg Heart Rate 60 /min Respiratory Rate 17 /min Weight 189.00 lb Weight in kg's 85.730 Height 70 inches 5'10" Height in cm's 177.8 cm BMI (Body Mass Index) 27.1 kg/m2 07/09/2017 BP Systolic 171 mmHg BP Diastolic 84 mmHg Heart Rate 67 /min Respiratory Rate 17 /min Weight 189.00 lb Weight in kg's 85.730 Height 70 inches 5'10" Height in cm's 177.8 cm BMI (Body Mass Index) 27.1 kg/m2 03/17/2017 BP Systolic 138 mmHg repeated after examinatioin BP Diastolic 78 mmHg repeated after examinatioin Heart Rate 58 /min 03/17/2017 BP Systolic 181 mmHg BP Diastolic 92 mmHg Heart Rate 64 /min Respiratory Rate 17 /min Weight 179.00 lb Weight in kg's 81.194 Height 68.50 inches 5'8.50" Height in cm's 174.0 cm BMI (Body Mass Index) 26.8 kg/m2 03/04/2017 BP Systolic 154 mmHg BP Diastolic 76 mmHg Heart Rate 71 /min Respiratory Rate 17 /min Weight 179.00 lb Weight in kg's 81.194 Height 68.50 inches 5'8.50" Height in cm's 174.0 cm BMI (Body Mass Index) 26.8 kg/m2 04/23/2016 BP Systolic 121 mmHg BP Diastolic 77 mmHg Heart Rate 78 /min Respiratory Rate 17 /min Weight 180.00 lb Weight in kg's 81.648 Height 68.50 inches 5'8.50" Height in cm's 174.0 cm BMI (Body Mass Index) 27.0 kg/m2 01/09/2016 BP Systolic 148 mmHg BP Diastolic 78 mmHg Heart Rate 67 /min Respiratory Rate 17 /min Weight 180.00 lb Weight in kg's 81.648 Height 68.50 inches 5'8.50" Height in cm's 174.0 cm BMI (Body Mass Index) 27.0 kg/m2 12/18/2015 BP Systolic 127 mmHg BP Diastolic 70 mmHg Heart Rate 73 /min Respiratory Rate 17 /min Weight 180.00 lb Weight in kg's 81.648 Height 68.50 inches 5'8.50" Height in cm's 174.0 cm BMI (Body Mass Index) 27.0 kg/m2 03/20/2015 BP Systolic 152 mmHg BP Diastolic 77 mmHg Heart Rate 58 /min Respiratory Rate 17 /min Weight 180.00 lb Weight in kg's 81.648 Height 68.50 inches 5'8.50" Height in cm's 174.0 cm BMI (Body Mass Index) 27.0 kg/m2 02/24/2015 BP Systolic 135 mmHg BP Diastolic 77 mmHg Heart Rate 69 /min Respiratory Rate 17 /min Weight 180.00 lb Weight in kg's 81.648 Height 68.50 inches 5'8.50" Height in cm's 174.0 cm BMI (Body Mass Index) 27.0 kg/m2 08/30/2014 BP Systolic 157 mmHg BP Diastolic 80 mmHg Heart Rate 64 /min Respiratory Rate 17 /min Weight 180.00 lb Weight in kg's 81.648 Height 68.50 inches 5'8.50" Height in cm's 174.0 cm BMI (Body Mass Index) 27.0 kg/m2 05/31/2014 BP Systolic 141 mmHg BP Diastolic 74 mmHg Heart Rate 58 /min Respiratory Rate 17 /min Weight 180.00 lb Weight in kg's 81.648 Height 68.50 inches 5'8.50" Height in cm's 174.0 cm BMI (Body Mass Index) 27.0 kg/m2 03/01/2014 Weight 180.00 lb Weight in kg's 81.648 Height 68.50 inches 5'8.50" Height in cm's 174.0 cm BMI (Body Mass Index) 27.0 kg/m2 01/19/2014 BP Systolic 145 mmHg BP Diastolic 74 mmHg Heart Rate 64 /min Respiratory Rate 16 /min Weight 180.00 lb Weight in kg's 81.648 Height 68.50 inches 5'8.50" Height in cm's 174.0 cm BMI (Body Mass Index) 27.0 kg/m2 09/01/2013 BP Systolic 128 mmHg BP Diastolic 84 mmHg Heart Rate 78 /min Respiratory Rate 17 /min Weight 180.00 lb Weight in kg's 81.648 Height 68.50 inches 5'8.50" Height in cm's 174.0 cm BMI (Body Mass Index) 27.0 kg/m2 06/08/2013 BP Systolic 140 mmHg BP Diastolic 77 mmHg Heart Rate 60 /min Respiratory Rate 17 /min Weight 183.00 lb Weight in kg's 83.009 Height 68.50 inches 5'8.50" Height in cm's 174.0 cm BMI (Body Mass Index) 27.4 kg/m2 05/28/2013 BP Systolic 172 mmHg BP Diastolic 82 mmHg Heart Rate 52 /min Respiratory Rate 17 /min Weight 180.00 lb Weight in kg's 81.648 Height 68.50 inches 5'8.50" Height in cm's 174.0 cm BMI (Body Mass Index) 27.0 kg/m2 05/03/2013 BP Systolic 139 mmHg BP Diastolic 77 mmHg Heart Rate 76 /min Respiratory Rate 16 /min Weight 180.00 lb Weight in kg's 81.648 Height 68.50 inches 5'8.50" Height in cm's 174.0 cm BMI (Body Mass Index) 27.0 kg/m2 12/07/2012 BP Systolic 82 mmHg BP Diastolic 52 mmHg Heart Rate 60 /min Respiratory Rate 16 /min Weight 180.00 lb Weight in kg's 81.648 Height 68.50 inches 5'8.50" Height in cm's 174.0 cm BMI (Body Mass Index) 27.0 kg/m2 06/09/2012 BP Systolic 152 mmHg BP Diastolic 79 mmHg Heart Rate 63 /min Respiratory Rate 16 /min Weight 180.00 lb Weight in kg's 81.648 Height 68.50 inches 5'8.50" Height in cm's 174.0 cm BMI (Body Mass Index) 27.0 kg/m2 02/25/2012 BP Systolic 137 mmHg BP Diastolic 84 mmHg Heart Rate 64 /min Respiratory Rate 16 /min Weight 180.00 lb Weight in kg's 81.648 Height 68.5 inches 5'8.50" Height in cm's 174.0 cm BMI (Body Mass Index) 27.0 kg/m2 12/25/2011 BP Systolic 161 mmHg BP Diastolic 78 mmHg Heart Rate 65 /min Respiratory Rate 16 /min Weight 180.00 lb Weight in kg's 81.648 Height 68.5 inches 5'8.50" Height in cm's 174.0 cm BMI (Body Mass Index) 27.0 kg/m2 12/03/2011 BP Systolic 151 mmHg BP Diastolic 116 mmHg Heart Rate 57 /min Respiratory Rate 16 /min Weight 180.00 lb Weight in kg's 81.648 Height 68.5 inches 5'8.50" Height in cm's 174.0 cm BMI (Body Mass Index) 27.0 kg/m2 10/01/2011 BP Systolic 154 mmHg BP Diastolic 71 mmHg Heart Rate 58 /min Respiratory Rate 16 /min Weight 182.00 lb Weight in kg's 82.555 Height 68.5 inches 5'8.50" Height in cm's 174.0 cm BMI (Body Mass Index) 27.3 kg/m2 12/12/2008 BP Systolic 135 mmHg BP Diastolic 75 mmHg Heart Rate 78 /min Respiratory Rate 16 /min 05/11/2008 BP Systolic 110 mmHg BP Diastolic 75 mmHg Heart Rate 68 /min Respiratory Rate 16 /min 04/11/2008 BP Systolic 141 mmHg BP Diastolic 72 mmHg Heart Rate 70 /min Respiratory Rate 20 /min 03/03/2008 BP Systolic 149 mmHg BP Diastolic 87 mmHg Heart Rate 58 /min Respiratory Rate 18 /min 02/24/2008 BP Systolic 132 mmHg BP Diastolic 70 mmHg Heart Rate 64 /min Respiratory Rate 24 /min 12/11/2007 BP Systolic 127 mmHg BP Diastolic 74 mmHg Heart Rate 59 /min Respiratory Rate 16 /min 12/12/2006 BP Systolic 111 mmHg BP Diastolic 74 mmHg Heart Rate 76 /min Respiratory Rate 16 /min 06/05/2005 BP Systolic 161 mmHg BP Diastolic 91 mmHg Heart Rate 56 /min Respiratory Rate 16 /min 06/05/2005 BP Systolic 120 mmHg BP Diastolic 77 mmHg Heart Rate 57 /min Respiratory Rate 16 /min 01/28/2005 BP Systolic 126 mmHg BP Diastolic 77 mmHg Heart Rate 62 /min Respiratory Rate 16 /min 12/17/2004 BP Systolic 131 mmHg BP Diastolic 81 mmHg Heart Rate 59 /min Respiratory Rate 14 /min 11/19/2004 BP Systolic 137 mmHg BP Diastolic 90 mmHg Heart Rate 71 /min Respiratory Rate 16 /min Results Test Date Test Result H/L Range Note Laboratory test 01/09/2016 Surgical Pathology SEE RESULT BELOW 1 finding Laboratory test 11/09/2010 BUN 17 mg/dL 6-24 finding Creatinine 11/09/2010 Creatinine 1.20 mg/dL 0.50-1.40 One Over Creatinine 0.80 eGFR Non- 58.6 > 60 eGFR 75.3 > 60 2 1 SEE RESULT BELOW Name: IVISSHAR : [address]: Librado Meza MD Acct: [id number] Unit: [id number] AGE: 85 Location: [facility] Re01/09/16 SEX: M Status: REG REF SPEC: [id number] MAYO: 01/09/16[address] [facility] [address]: Librado Meza MD REQ: [id number] RECD: 01/09/16 STATUS: SOUT _ ORDERED: LEVEL IV FINAL DIAGNOSIS Skin, right ear, tragus, excision: -- Verruca vulgaris. PRE-OPERATIVE DIAGNOSIS Right tragus lesion. GROSS DESCRIPTION The specimen is received in formalin labeled, Right Tragus Lesion, and consists of a 0.6 x 0.5 x 0.4 cm rosario-stephens focally crusted friable irregular skin fragment, which is inked, bisected and submitted entirely in one cassette. Signed (signature on file) Andrew Metz MD 1258 END OF REPORT * ML=Testing performed at Main Lab DEPARTMENT OF PATHOLOGY, [address] [place] [address] Andrew Metz M.D. Director [facility] # [id number] 2 Because ethnic data is not always readily [...] 15-29 5 Kidney failure <15 (or dialysis) Procedures Date CPT Code Description Status 03/24/2018 69266 Tympanometry Completed 03/24/2018 20508 Comprehensive Audiogram Completed 03/24/2018 84720 Binocular Microscopy Completed 09/10/2017 91183 Binocular Microscopy Completed 07/09/2017 81428 Removal Wax Impaction Completed 03/17/2017 56031 Binocular Microscopy Completed 03/04/2017 81520 Removal Wax Impaction Completed 04/23/2016 65110 Removal Wax Impaction Completed 01/09/2016 01217 Exc Chip Les 0.6-1.0CM Face/Ears/Nose/Lip Completed 12/18/2015 60480 Binocular Microscopy Completed 03/20/2015 39680 Fiberoptic Laryngoscopy Completed 08/30/2014 46443 Removal Wax Impaction Completed 05/31/2014 39937 Removal Wax Impaction Completed 03/01/2014 68018 Binocular Microscopy Completed 03/01/2014 64262 Comprehensive Audiogram Completed 03/01/2014 66206 Tympanometry Completed 01/19/2014 43628 Removal Wax Impaction Completed 09/01/2013 82672 Binocular Microscopy Completed 06/08/2013 51907 Binocular Microscopy Completed 05/28/2013 42552 Binocular Microscopy Completed 05/03/2013 75408 Binocular Microscopy Completed 12/07/2012 22051 Removal Wax Impaction Completed 06/09/2012 47460 Binocular Microscopy Completed 12/25/2011 46784 Binocular Microscopy Completed 12/03/2011 11049 Binocular Microscopy Completed 11/15/2011 08292 Binocular Microscopy Completed 10/01/2011 03399 Binocular Microscopy Completed 06/26/2011 85343 Tympanostomy W/Tube Local Or Topical Anes. Completed 06/17/2011 49231 Binocular Microscopy Completed 06/17/2011 98028 Tympanometry Completed 06/11/2011 39506 Removal Wax Impaction Completed 11/01/2010 77528 Removal Wax Impaction Completed 12/11/2009 53107 Binocular Microscopy Completed 06/14/2008 60965 Comprehensive Audiogram Completed 06/14/2008 83825 Comprehensive Audiogram Completed 05/13/2008 43168 Tympanostomy W/Tube, Under General Anes. Completed 03/02/2008 50713 Tympanostomy W/Tube, Under General Anes. Completed 02/24/2008 51949 Tympanostomy W/Tube Local Or Topical Anes. Completed 06/13/2006 93888 Comprehensive Audiogram Completed 05/21/2006 66080 Tympanostomy W/Tube Local Or Topical Anes. Completed 11/04/2005 22906 Tympanometry Completed 11/04/2005 34664 Comprehensive Audiogram Completed 09/12/2005 86227 Tympanostomy W/Tube Local Or Topical Anes. Completed 09/11/2005 23995 Tympanometry Completed 09/11/2005 85395 Comprehensive Audiogram Completed 06/05/2005 26118 Comprehensive Audiogram Completed 02/13/2005 94764 Comprehensive Audiogram Completed 01/28/2005 25693 Tympanostomy W/Tube, Under General Anes. Completed 01/28/2005 17598 Tympanostomy W/Tube Local Or Topical Anes. Completed 01/10/2005 79551 Tympanometry Completed 01/10/2005 51623 Comprehensive Audiogram Completed 12/17/2004 05580 Tympanometry Completed 12/17/2004 30090 Comprehensive Audiogram Completed 12/17/2004 05652 Myringotomy No Tube Unilateral hs Completed 11/19/2004 67699 Tympanometry Completed 11/19/2004 64835 Comprehensive Audiogram Completed Encounters Type Date Location Provider CPT E/M Dx Office Visit 04/22/2018 9:15a Dalila,After 10/06/07 Librado Barlow 96880 H72.93 Cirilo Meza H90.3 Office Visit 03/24/2018 10:15a Dalila,After 10/06/07 Librado Meza 93355 H61.23 M.D. H72.93 H66.40 H90.3 Office Visit 09/10/2017 10:45a Dalila,After 10/06/07 Librado Meza 12603 H61.23 M.D. H72.93 H90.6 Office Visit 03/17/2017 8:30a Dalila,After 10/06/07 Librado Meza 69874 H72.93 M.D. Office Visit 12/18/2015 9:15a Dalila,After 10/06/07 Librado Meza 12574 H61.23 M.D. H72.93 D48.5 Office Visit 02/24/2015 9:15a Dalila,After 10/06/07 Librado Meza 31619 384.20 M.D. 388.70 462-2 Office Visit 03/01/2014 10:15a Dalila,After 10/06/07 Librado Meza 72236 384.20 M.D. 389.18 Office Visit 09/01/2013 2:15p Dalila,After 10/06/07 Librado Meza 25590 384.20 M.D. Office Visit 06/08/2013 8:30a Pisek,After 10/06/07 Librado Meza 03581 384.20 M.D. Office Visit 05/28/2013 10:30a Pisek,After 10/06/07 [place] [address] 384.20 381.19 Office Visit 05/03/2013 10:30a Pisek,After 10/06/07 [place] [address] 384.20 Office Visit 06/09/2012 8:45a Pisek,After 10/06/07 Librado Meza 44229 384.20 M.D. 381.19 389.18 Office Visit 02/25/2012 1:45p Pisek,After 10/06/07 Librado Meza 31455 381.19 M.D. 384.20 Office Visit 12/25/2011 2:00p Pisek,After 10/06/07 Librado Meza 30384 381.19 M.D. 384.20 389.18 Office Visit 12/03/2011 10:00a Pisek,After 10/06/07 Librado Meza 36769 381.19 M.D. 389.18 384.20 872.02 401.9 Office Visit 11/15/2011 11:00a Pisek,After 10/06/07 [place] [address] 381.4 Office Visit 10/01/2011 8:45a Pisek,After 10/06/07 Libraod Meza 76723 381.19 M.D. Office Visit 06/17/2011 2:15p Pisek,After 10/06/07 [place] [address] 381.19 Office Visit 12/03/2010 8:45a Pisek,After 10/06/07 Librado Meza 06429 482.9 M.D. 381.19 Office Visit 10/15/2010 11:00a Pisek,After 10/06/07 Librado Meza 42695 482.9 M.D. Office Visit 12/11/2009 2:00p Pisek,After 10/06/07 Librado Meza 53961 381.19 M.D. Office Visit 12/12/2008 11:15a Pisek,After 10/06/07 Librado Meza 48044 381.19 M.D. Office Visit 06/14/2008 9:30a Pisek,After 10/06/07 Librado Meza 35027 381.19 M.D. 389.08 389.18 Office Visit 05/11/2008 3:30p Pisek,After 10/06/07 Librado Meaz 93637 381.19 M.D. Office Visit 04/11/2008 8:30a Pisek,After 10/06/07 Librado Meza 52995 381.19 M.D. Office Visit 03/03/2008 11:30a Pisek,After 10/06/07 Librado Meza 11988 388.69 M.D. 381.19 Office Visit 12/11/2007 9:15a Pisek,After 10/06/07 [place] [address] 381.4 462-2 Office Visit 06/12/2007 9:30a Pisek,After 10/06/07 [place] [address] 381.4 Office Visit 12/12/2006 9:00a Pisek,After 10/06/07 [place] [address] 381.4 Office Visit 06/13/2006 9:45a Pisek,After 10/06/07 [place] [address] 381.4 389.10 Office Visit 05/05/2006 9:00a Pisek,After 10/06/07 [place] [address] 381.4 Office Visit 02/11/2006 3:20p Pisek,After 10/06/07 Librado Meza 66768 381.4 M.D. Office Visit 02/11/2006 3:45p Pisek,After 10/06/07 Librado Meza 95912 381.4 M.D. Office Visit 11/04/2005 9:30a Pisek,After 10/06/07 [place] [address] 381.4 389.10 Office Visit 09/11/2005 9:45a Pisek,After 10/06/07 [place] [address] 381.4 389.03 Office Visit 06/05/2005 10:30a Pisek,After 10/06/07 [place] [address] 389.10 389.03 384.20 Office Visit 02/13/2005 9:00a Pisek,After 10/06/07 Jose Puentes, 90094 381.4 M.D. 389.03 Office Visit 01/10/2005 5:00p Pisek,After 10/06/07 Jose Puentes, 65259 382.00 M.D. 473.2 389.03 Office Visit 12/27/2004 5:30p Pisek,After 10/06/07 Jose Puentes, 07779 382.00 M.D. 461.2 Office Visit 11/19/2004 10:30a Pisek,After 10/06/07 Jose Puentes, 18168 472.0 M.D. 381.4 389.10 Plan of Care 04/22/2018 - Librado Meza M.D.H72.93 Unspecified perforation of tympanic membrane, bilateralComments:The patient has bilateral tympanic membrane perforations.Follow up:FU 3 months for ear [id number] Sensorineural hearing loss, bilateralComments:The patient has severe bilateral sensorineural hearing loss and is doing better with a left hearing amplifier from [employer]. They could get one for the right ear.
--- OUTSIDE RECORDS SUMMARY | 2018-05-03 12:50 | XMS REPORT ---
:1930 External Reference #:[id number] Author Organization [facility] Address [address] [place] [address] [place] [address] Phone [phone] Care Team Providers Name Role Phone Ed Blevins MD Primary Care Physician Unavailable Payers Type Date Identification Payment Subscriber Numbers Provider Health Maintenance Effective: Policy Number: Medicare Blue Shar Simmons [facility] ([facility]) 10/06/2012 [id number] [facility] Number: [id number] [address] PayID: [id number] SINDI Andino [address] Health Maintenance Effective: Policy Number: Medicare Abelardo Chaves Go Try It On ([facility]) 10/06/2009 [id number] [facility] Expires: 10/06/2012 PayID: [id number] [address] [phone] SINDI Andino [id number] Problems Date Description Provider Status Onset: 12/20/2011 Electrocardiogram abnormal Caterina Guidry M.D. Onset: 12/20/2011 Coronary arteriosclerosis Caterina Guidry M.D. Onset: 12/20/2011 Benign essential hypertension Caterina Guidry M.D. Onset: 12/20/2011 Right bundle branch block Caterina Guidry M.D. Onset: 06/30/2013 Hyperlipidemia Caterina Guidry M.D. Onset: 03/07/2014 Dyspnea Caterina GuidryD. Onset: 11/17/2017 Type 2 diabetes mellitus with ulcer Paddy Bryan MD Active Onset: 11/17/2017 Cellulitis of foot Paddy Bryan MD Active Onset: 12/19/2017 Abrasion and/or friction burn of Paddy Bryan MD Active lower limb without infection Onset: 12/19/2017 Contusion of knee Paddy Bryan MD Active Family History Date [...] Tums 02/24/ Active Chewtabs 500mg two qd Qutaybcresencio 2008 Larisa Nicholas M.D. HCTZ 02/24/ Active 25mg. 90unit 1 PO qd Qutaybeh 2007 s Larisa Nicholas M.D. Nitroquick 02/24/ Active Tablets 0.4mg 25tabs 1 S/L prn Qutaybeh 2007 Sub Chest S. Pain, Q 5 Cristopher Min. Up To , M.DAngela 3 Tabs Plavix / Active Tablets 75mg 90tabs 1 po qd Unknown 0000 Singulair / Active Tablets 10mg 30tabs 1 po qd Unknown 0000 Aspirin 00/ Active Tablets 81mg 1 by mouth Unknown 0000 every day Metoprolol / Active Tablets 50mg 1/2 tab by Unknown Tartrate 0000 mouth twice a day Vitamin D3 / Active Capsules 1000Iu 30caps 1 by mouth Unknown 0000 every day Albuterol / Active 4 times a Unknown Sulfate 0000 day Acetaminophen / Active Tablets ER 650mg 1 [...] Unknown 0000 every day ( started 03/28/17 [facility] discharge ) Ferrous Sulfate / Active Tablets 325mg 1 by mouth Unknown 0000 every day( started 03/28/17 [facility] discharge ) Klor-Con M20 / Active Tablets ER 20Meq 1 by mouth Unknown 0000 every day Santyl / Active Ointment 250Unit/GM apply 1 Unknown 0000 gram to affected area twice daily. Sulfamethoxazol / Active Tablets 800-160mg deedee Blevins/Trimethoprim 0000 GRETCHEN Ta MD Irbesartan 07/11/ Hx Tablets 150mg 1 by mouth Felicity 2013 - every day Ed Elizondo, 11/26/ as 2017 directed Simvastatin 06/20/ Hx Tablets 40mg 90tabs 1 po qd Felicity 2013 - Ed Elizondo 11/26/ MD Haney Qvar 03/07/ Hx Aerosol 1units 2 puffs Stu 2013 - twice a S. 11/11/ day Cristopher Haney M.D. Aspirin 11/18/ Hx Tablets 325mg 1 po qd Stu 2008 - S. 09/14/ Cristopher Cabrera M.D. Plavix 05/22/ Hx Tablets 75mg 90tabs 1 PO qd Qutaybeh 2007 - [facility] , Cir[facility] Vit D 02/24/ Hx one qd Qutaybeh 2007 - [facility]. [facility] , Cirilo Aspirin 02/24/ Hx Tablets 325mg 1-2 PO qd Qutaybeh 2007 - S. 11/18/ [facility] , Cirilo Avapro 02/24/ Hx Tablets 150mg 90tabs 1 PO qd Qutaybeh 2007 - S. 09/14/ [facility] , Cirilo Lipitor 02/24/ Hx Tablets 40mg 90tabs 1/2tab qhs Qutaybeh 2007 - S. 05/13/ [facility] , Cirilo Claritin 02/24/ Hx Tablets 10mg 30tabs PO qd prn Qutaybeh 2007 - S. [facility] 2008 , Cirilo Metoprolol 02/24/ Hx Tablets 50mg 30tabs one half Qutaybeh 2007 - bid S. 03/02/ [facility] , Cirilo Advair Diskus 02/24/ Hx Misc 500/50 1 puff bid taybeh 2007 - [facility]. [facility] , Cirilo Proventil HFA / Hx [...] times a 2014 day as needed Vesicare 00/ Hx Tablets 5mg 1 by mouth Unknown [...] 2016 Vital Signs Date Vital Result Comment 04/10/2018 Height 70 inches 5'10" Heart Rate 68 /min BP Systolic Sitting 120 mmHg BP Diastolic Sitting 80 mmHg Respiratory Rate 16 /min Pain Level 0 02/06/2018 Height 70 inches 5'10" Heart Rate 74 /min BP Systolic 138 mmHg BP Diastolic 72 mmHg Respiratory Rate 18 /min Pain Level 0 01/09/2018 Height 70 inches 5'10" Weight 187.00 lb Respiratory Rate 16 /min Pain Level 0 BMI (Body Mass Index) 26.8 kg/m2 12/19/2017 Height 70 inches 5'10" Weight 187.00 [...] Result H/L Range Note Laboratory test finding 12/19/2017 Prealbumin 35 mg/dL 18-38 C Reactive Protein 1.88 mg/L < 5.00 1 Vitamin B12 306 pg/mL 180-914 2 Zinc Level 0.83 g/mL 0.66-1.10 3 Laboratory test finding 11/25/2017 Lactic Acid 1.9 mmol/L 0.5-2.0 4 Hemoglobin A1c 6.6 % High 4.0-5.6 5 Laboratory test finding 09/18/2015 Point of Care Glucose 243 mg/dL High 74 -106 6 Laboratory test finding 08/17/2015 PSA Diagnostic 0.079 ng/mL 0-4.0 7 Laboratory test finding 10/04/2014 PSA Screening 0.081 ng/mL 0-4.0 8 Laboratory test finding 04/14/2012 PSA,Diagnostic 0.18 NG/ML 0-4 9 Laboratory test finding 11/09/2010 BUN 17 mg/dL 6-24 Creatinine 11/09/2010 Creatinine 1.20 mg/dL 0.50-1.40 One Over Creatinine 0.80 eGFR Non- 58.6 > 60 eGFR 75.3 > 60 10 Laboratory test finding 10/04/2009 PSA,Diagnostic 0.11 NG/ML 0-4 11 Laboratory test finding 04/05/2009 PSA,Diagnostic 0.0 NG/ML 0-4 12 Protime 04/28/2008 Protime 10.9 10.9-13.3 Inr 0.81 13 Basic Metabolic Panel 04/28/2008 Sodium 137 mmol/L 135-145 Potassium 4.0 mmol/L 3.5-5.0 Chloride 104 mmol/L 101-111 Co2 (Carbon Dioxide) 24.0 mmol/L 22-32 Anion Gap 9.0 mmol/L 2-11 14 Glucose 106 mg/dL High 70-105 BUN 15 mg/dL 6-24 Creatinine 1.2 mg/dL 0.5-1.4 One Over Creatinine 0.83 BUN/Creatinine Ratio 12.5 8-20 Calcium 8.9 mg/dL 8.1-9.9 15 CBC With Manual Diff 04/28/2008 White Blood [...] Cath Panel 04/28/2008 PTT (Aptt) 21.6 20.1-28.2 16 1 Acute inflammation: >10.00 2 Normal Range 180 to 914 Indeterminate Range 145 to 180 Deficient Range <145 3 ADDITIONAL INFORMATION This test was developed and its performance characteristics determined by [facility] in a manner consistent with CLIA requirements. This test has not been cleared or approved by the U.S. Food and Drug Administration. Test Performed by: [facility] [place] [address] 4 [facility] Severe Sepsis and Septic Shock Management Bundle Measure requires all lactic acids initially measuring >2.0 mmol/L be repeated. 5 Therapeutic target for the treatment of diabetes mellitus patients is <7% HBA1C, and in selective patients <6.0%. Please refer to [place] [employer] diabetic care guidelines for further information. 6 Ship Engineer: [id number] [place] DRUMMOND 7 Serum levels of PSA measured using the [...] methods or kits cannot be used interchangeably. 8 Serum levels of PSA measured using the [employer] [place] DXI Hybritech immunoassay should not be interpreted [...] methods or kits cannot be used interchangeably. 9 * SERUM LEVELS OF PSA MEASURED USING THE LAZ [employer] ACCESS HYBRITECH IMMUNOASSAY SHOULD NOT BE INTERPRETED [...] methods of kits cannot be used interchangeably. 10 Because ethnic data is not always readily [...] 15-29 5 Kidney failure <15 (or dialysis) 11 * SERUM LEVELS OF PSA MEASURED USING THE LAZ [employer] ACCESS HYBRITECH IMMUNOASSAY SHOULD NOT BE INTERPRETED ABSOLUTE EVIDENCE OF THE PRESENCE OR ABSENCE OF DISEASE. THE PSA VALUE SHOULD BE USED IN CONJUNCTION WITH OTHER PERTINENT CLINICAL DIAGNOSTIC PROCEDURES. A PSA value in the range of 0.1 to 0.6 ng/ml is indeterminate if being used as an indicator of recurrent or residual disease. . 12 * SERUM LEVELS OF PSA MEASURED USING THE LAZ [employer] ACCESS HYBRITECH IMMUNOASSAY SHOULD NOT BE INTERPRETED ABSOLUTE EVIDENCE OF THE PRESENCE OR ABSENCE OF DISEASE. THE PSA VALUE SHOULD BE USED IN CONJUNCTION WITH OTHER PERTINENT CLINICAL DIAGNOSTIC PROCEDURES. A PSA value in the range of 0.1 to 0.6 ng/ml is indeterminate if being used as an indicator of recurrent or residual disease. . 13 PATRICIA VALUE=2.01 ( OF 09/11/07 Recommended INR for Patients on Oral Anticoagulants Prophylaxis 2.0 - 3.0 Treatment of thrombosis 2.0 - 3.0 Prevention of embolism 2.0 - 3.0 Prevention of embolism from prosthetic heart valves 2.5 - 3.5 14 Anion gap measurement may be of limited value in the presence of any alkalosis, especially in a combined acid base disorder. . 15 Please note change in reference range effective 08 . 16 PLEASE NOTE NEW REFERENCE RANGE EFFECTIVE 08. Procedures Date CPT Code Description Status 12/12/2017 63117 application of short leg splint Completed 11/21/2017 50299 application of short leg splint Completed 2017 55853 CLSD TX Distal Fib FX (Lateral Malleolus) w/o Completed manipulation 10/13/2017 39780 EKG Tracing & Interpretation Completed 04/15/2017 10440 EKG Tracing & Interpretation Completed 03/28/2017 82204 ECHO Transthorasic Realtime 2D W Doppler & Color Flow Completed Hosp 03/28/2017 33895 EKG, Interpretation Only Completed 11/27/2016 22789 EKG Tracing & Interpretation Completed 10/17/2016 84643 ECHO Transthorasic Realtime 2D W Doppler & Color Flow Completed Hosp 02/16/2016 19568 EKG Tracing & Interpretation Completed 12/04/2015 33427 ECHO Transthorasic Realtime 2D W Doppler & Color Flow Completed Hosp 06/16/2015 69824 EKG Tracing & Interpretation Completed 01/31/2015 02644 Treadmill Interp/Report Only Completed 01/31/2015 18627 Stress Test Supervsn W/Out I/R Completed 09/15/2014 72114 EKG Tracing & Interpretation Completed 09/07/2014 47404 EKG, Interpretation Only Completed 09/06/2014 94126 Left Heart Cath. Incl S/I Coronaries, Angio S/I V Gram Completed If Done 09/06/2014 73142 EKG, Interpretation Only Completed 09/06/2014 66745 Revascularization Acute Total/Subtotal Occlusion Completed 09/06/2014 76998 Percutaneous Transcatheter Placement Of Intracoronary Completed Stent 09/05/2014 46450 EKG, Interpretation Only Completed 03/07/2014 06372 EKG Tracing & Interpretation Completed 11/24/2013 16749 ECHO Transthorasic Realtime 2D W Doppler & Color Flow Completed Hosp 06/30/2013 58276 EKG Tracing & Interpretation Completed 08/21/2012 76962 EKG Tracing & Interpretation Completed 12/20/2011 88048 EKG Tracing & Interpretation Completed 05/13/2011 92067 ECHO Transthoracic, Real-Time 2D With Doppler And Color Completed Flow 05/13/2011 63279 EKG Tracing & Interpretation Completed 05/09/2011 90533 Treadmill Interp/Report Only Completed 05/09/2011 55360 Stress Test Supervsn W/Out I/R Completed 10/22/2010 50975 EKG Tracing & Interpretation Completed 03/20/2010 89968 EKG Tracing & Interpretation Completed 03/19/2010 61418 ECHO Transthorasic Realtime 2D W Doppler & Color Flow Completed Hosp 03/12/2010 74171 Treadmill Interp/Report Only Completed 03/12/2010 77496 Stress Test Supervsn W/Out I/R Completed 10/10/2009 74039 EKG Tracing & Interpretation Completed 05/09/2009 33698 EKG Tracing & Interpretation Completed 05/01/2009 69707 Treadmill Interp/Report Only Completed 05/01/2009 89584 Stress Test Supervsn W/Out I/R Completed 04/20/2009 44845 ECHO Transthoracic, Real-Time 2D With Doppler And Color Completed Flow 11/18/2008 88740 EKG Tracing & Interpretation Completed 05/04/2008 72051 Left Heart Catheterization Completed 05/04/2008 06545 Inj Proc LFT Vent/LFT Atrl Angio Completed 05/04/2008 77969 Inj Proc LFT Vent/LFT Atrl Angio Completed 05/04/2008 10560 Coronary Angiography Completed 05/04/2008 86792 S/I/R Inj Proc Vent And Or Atrial Completed 05/04/2008 58601 S/I/R Inj Proc Vent And Or Atrial Completed 05/04/2008 95653 Selective Coronary Angioplasty Completed 04/28/2008 09066 ECHO/Stress Completed 04/28/2008 47303 ECHO/Stress Completed 04/28/2008 49315 ECHO/Stress Completed 04/28/2008 66715 Stress Test Completed 04/28/2008 41340 Stress Test Completed 03/29/2008 97628 Color Doppler Completed 03/29/2008 20219 Pulse Doppler & Continuous Wave Completed 03/29/2008 40800 Pulse Doppler & Continuous Wave Completed 03/29/2008 93228 Echocardiogram Completed 02/25/2008 87761 EKG Tracing & Interpretation Completed 05/02/2005 10218 Treadmill Interp/Report Only Completed 05/02/2005 26654 Stress Test Supervsn W/Out I/R Completed Encounters Type Date Location Provider CPT E/M Dx Office Visit 02/06/2018 [place] [address] S82.65xD 10:30a Of C.M.A. Office Visit 12/29/2017 [facility] AT [facility], 12042 S80.212D 2:30p [facility] ANA [place], [facility] Office Visit 12/19/2017 [facility] AT [facility], 80790 S91.101D 1:30p [facility] BRYANNA RN, [facility] S80.211A S80.02xA Office Visit 12/08/2017 2:00p [facility] Umm Avelar DNP, 92[address] S91.101A AT [facility] E11.628 S80.211A S82.65xD M86.272 Office Visit 12/01/2017 1:30p [facility] Umm Avelar DNP, 91466 S91.101A AT [facility] ANA [facility] E11.628 S80.211A S82.65xD M86.272 Office Visit 11/19/2017 10:55a [facility] Of IRIS Powers 37079 L03.116 C.M.A. Office Visit 11/19/2017 1:44p [facility] ,lucina Vickers, 39478 L03.116 Hospitalists EXHAUST TENDER I10 J44.9 E10.59 Office Visit 11/18/2017 11:13a [facility] [place] [address] L03.116 C.M.A. Office Visit 11/18/2017 1:43p [facility] Margo Vickers, 32608 L03.116 Assoc, Hospitalists EXHAUST TENDER I10 J44.9 E10.59 Office Visit 11/18/2017 12:42p [facility] Abdiel García 72189 L03.113 Infectious Diseases Cirilo Stein L97.521 E11.621 Office Visit 11/17/2017 1:41p [facility] Margo Vickers 09967 L03.116 Assoc, Hospitalists EXHAUST TENDER I10 J44.9 E10.59 Office Visit 11/17/2017 10:30a [facility] [place] [address] L03.116 C.M.A. E11.621 Office Visit 10/13/2017 9:00a [facility] IRIS Brandon 77205MTO I25.118 I71.2 I10 Office Visit 04/15/2017 4:00p [facility]. 40608 R07.9 Yovana Nicholas M.D. D64.9 I51.7 I34.0 I71.2 I25.118 I10 I45.10 I44.0 R94.31 Office Visit 03/28/2017 4:04p [facility], Reina Mcdonough, 20305 R07.9 Hospitalists M.Raquel I25.118 I10 Office Visit 03/27/2017 4:00p [facility], Reina Mcdonough, 02517 R07.9 Hospitalists MArron I25.118 I10 Office Visit 11/27/2016 4:00p [facility]. Cristopher, 23384 I25.10 M.D. I10 I71.9 I45.10 R94.31 Office Visit 10/29/2016 9:21a [facility] Zoey Carver, 07182 R25.8 M.D. Office Visit 10/23/2016 10:34a [facility], Reina Mcdonough, 12871 D72.829 Hospitalists M.DAngela D64.9 E11.8 Z79.4 Office Visit 10/20/2016 10:33a [facility], Reina Mcdonough, 88903 D72.829 Hospitalists M.DAngela D64.9 E11.8 Office Visit 10/18/2016 10:20a [facility], Reina Mcdonough, 64720 I63.9 Hospitalists M.DAngela D64.9 K92.2 J20.9 Office Visit 10/17/2016 10:19a [facility], Reina Mcdonough, 19702 I63.9 Hospitalists M.DAngela D64.9 K92.2 J20.9 Office Visit 10/17/2016 11:39a [facility] [place] [address] I63.9 Office Visit 10/16/2016 10:18a [facility],pc Manisha Mathew, 80491 I63.9 Hospitalists D.O. D64.9 K92.2 J20.9 Office Visit 10/16/2016 11:38a [facility] [place] [address] I63.9 Office Visit 10/15/2016 10:17a [facility],pc Manisha Mathew, 15595 I63.9 Hospitalists D.O. D64.9 K92.2 J20.9 Office Visit 10/14/2016 10:17a [facility],pc Manisha Mathew, 84656 R65.20 Hospitalists D.O. D64.9 J20.9 K92.2 Office Visit 10/13/2016 10:16a [facility],pc Manisha Mathew, 48347 R65.20 Hospitalists D.O. D64.9 J20.9 K92.2 Office Visit 10/13/2016 7:00a [facility] Farhat Salgado, 13030 K92.2 Engineering Model Maker MD Office Visit 10/12/2016 10:15a [facility] Manisha Mathew, 91877 R65.20 Assoc,pc Hospitalists D.O. D64.9 J20.9 K92.2 Office Visit 10/11/2016 10:14[place] [address] R65.20 Assoc, Hospitalists Cirilo J20.9 J44.1 A41.9 Office Visit 10/11/2016 7:00a [facility] [place] [address] K92.2 [facility] Office Visit 02/16/2016 9:40a [facility] Qutaybeh S. 96752 I25.10 Cirilo Nicholas E11.9 I10 J44.9 R94.31 I71.9 Office Visit 12/04/2015 1:06p [facility],pc Damon Inman, 75370 R06.02 Hospitaldivya Kerr I25.10 E11.9 I10 Office Visit 12/03/2015 1:05[place] [address] R06.02 Assoc, Hospitalists Cirilo I25.10 E11.9 I10 Office Visit 08/12/2015 11:20a [facility], Ari Fox M.D. 04809 E87.2 Hospitalists E11.9 J44.9 Office Visit 06/16/2015 4:00p [facility] LindyAngela Nicholas, 06585 414.00 M.D. 414.9 250.00 414.01 Office Visit 01/29/2015 1:16p [facility], 00481 414.00 Assoc, Hospitalists N.P. 490 786.50 Office Visit 12/20/2014 10:30a [facility] IRIS Brandon 77781XNC 414.9 V45.82 250.00 496 492.8 Office Visit 09/15/2014 1:00p [facility] Larisa Nicholas, 63099 414.9 M.DAngela 410.70 496 414.01 V45.82 Office Visit 09/08/2014 3:47p [facility] Torsten Aj, 85889 428.0 M.D. Office Visit 09/08/2014 5:58p [facility], Angelina Dexter, 49833 786.50 Hospitalists N.P. 788.20 414.9 250.00 Office Visit 09/07/2014 1:53p [facility] Reed De Jesus M.D., 73959 410.70 [facility], FSCAI 414.9 Office Visit 09/07/2014 5:57p [facility] Angelina Dexter, 97603 786.50 Hospitalists N.P. 788.20 414.9 250.00 Office Visit 09/06/2014 5:56p [facility], Angelina Dexter, 91096 786.50 Hospitalists N.P. 496 414.9 250.00 Office Visit 09/05/2014 5:55p [facility], Angelina Dexter, 44088 786.50 Hospitalists N.P. 414.9 496 250.00 Office Visit 03/19/2014 1:17p [facility] Reina Mcdonough, 32715 562.11 Hospitalists M.D. 414.00 250.00 Office Visit 03/18/2014 1:16p [facility], Reina Mcdonough, 23290 562.11 Hospitalists M.D. 414.00 250.00 Office Visit 03/17/2014 1:15p [facility], Reina Mcdonough, 87817 562.11 Hospitalists M.D. 276.2 414.00 250.00 Office Visit 03/07/2014 3:40p [facility] Qutaybeh S. Maghaydah, 61536 786.05 M.D. 414.01 401.1 426.4 794.31 272.4 Office Visit 11/24/2013 3:34p [facility], Reina Mcdonough, 94369 466.0 Hospitalists M.D. 786.50 Office Visit 11/23/2013 3:33p [facility], Reina Mcdonough, 28768 466.0 Hospitalists M.D. 786.50 Office Visit 06/30/2013 10:00a [facility] Qutaybeh S. Maghaydah, 49945 414.01 M.D. 401.1 426.4 272.4 Office Visit 08/21/2012 10:00a [facility] Qutaybeh S. Maghaydah, 74943 414.01 M.D. 401.1 426.4 272.4 Office Visit 12/20/2011 10:20a [facility] Qutaybeh S. Maghaydah, 79337 794.31 M.D. 414.01 401.1 426.4 Office Visit 05/13/2011 10:00a [facility] Qutaybeh S. Maghaydah, 07091 794.31 M.D. 414.01 401.1 426.4 272.4 466.0 492.8 250.02 Office Visit 05/09/2011 9:30a [facility] Qutaybeh S. Maghaydah, 31922 794.31 M.D. 414.01 401.1 426.4 Office Visit 10/22/2010 9:00a [facility] Qutaybeh S. Maghaydah, 06288 414.01 M.D. 401.1 426.4 272.4 Office Visit 03/20/2010 9:20a [facility] Stu S. Cristopher, 43400 414.01 M.D. 401.1 426.4 272.4 Office Visit 10/10/2009 8:40a [facility] Stu S. Cristopher, 35443 414.01 M.D. 401.1 426.4 272.4 Office Visit 05/09/2009 8:50a [facility] Stu Israel. Cristopher, 74053 414.01 M.D. 401.1 786.05 426.4 Office Visit 11/18/2008 11:20a [facility] Stu S. Cristopher, 34326 414.01 M.D. 786.05 426.4 272.4 Office Visit 05/11/2008 11:40a [facility] Stu Nicholas, 10110 414.01 M.D. 786.05 401.1 V45.82 426.4 272.4 Office Visit 05/04/2008 1:00p [facility] Stu Israel. Cristopher, 51076 414.01 M.D. 786.05 401.1 V45.82 Office Visit 04/28/2008 3:40p [facility] Garytaboom S. Cristopher, 69670 414.01 M.D. 786.05 401.1 V45.82 794.31 426.4 Office Visit 02/25/2008 10:20a [facility] Stu Nicholas, 72170 414.01 M.D. 786.05 401.1 272.4 V45.82 794.31 426.4 Plan of Care Future Appointment(s):05/05/2018 11:20 am - Stu Nicholas M.D. at [facility]
--- OUTSIDE RECORDS SUMMARY | 2018-05-03 12:50 | XMS REPORT ---
:1930 External Reference #:[id number] Author Organization [facility] Address [address] [place] [address] Phone [phone] Care Team Providers Name Role Phone Ed Blevins M.D. Primary Care Physician Unavailable Payers Type Date Identification Numbers Payment Provider Subscriber Commercial Effective: Policy Number: BS [employer] Shar Simmons 2012 [id number] Group Number: [id number] [address] [address] PayID: [id number] [place] [address] Problems Date Description Provider Status Onset: 03/13/2015 Essential hypertension Librado Casas M.D. Active Onset: 03/13/2015 Type 2 diabetes mellitus Librado Casas M.D. Active Onset: 03/13/2015 Renal failure syndrome Librado Casas M.D. Active Onset: 03/13/2015 Coronary arteriosclerosis Librado Casas M.D. 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 Active Onset: 03/13/2015 Amblyopia Librado Casas M.D. 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 Active Onset: 03/13/2015 Herpes zoster without complication Librado Casas M.D. Active Onset: 03/13/2015 Pseudophakia Librado Casas M.D. Active Onset: 04/15/2016 Angular blepharoconjunctivitis Caterina Love O.D. Onset: 11/13/2016 Generalized visual field constriction Librado Casas M.D. 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 Active without macular edema, bi Onset: 03/18/2017 Refractive amblyopia Librado Casas M.D. Active Family History Date Family Member(s) Problem(s) Comments Father No Current Problems Mother No Current Problems Social History Type Date Description Comments Marital Status Has been 1 time Occupation Ret Last [employer] ETOH Use Rarely consumes alcohol Recreational Drug Use Denies Drug Use Smoking 1958 Patient is a former smoker Daily Caffeine Consumes on average 1 cup of decaf coffee per day Allergies, Adverse Reactions, Alerts Date Description Reaction Status Severity Comments 03/13/2015 Captopril active 03/13/2015 TUNA active 03/13/2015 Lyrica active 03/13/2015 Limbrel active Medications Medication Date Status Form Strength Qnty SIG Indications Ordering Provider Atorvastatin Active Tablets 80mg Unknown Calcium /0000 Dulera Active Aerosol 200-5mcg/ Unknown /0000 Act Lansoprazole Active Capsules 30mg Unknown /0000 DR Sarah Velasquez Active Solution 100Unit/M Unknown /0000 Pen-Inject L Losartan Potassium Active Tablets 50mg Unknown /0000 Hydrochlorothiazid Active Tablets 25mg Unknown e /0000 Montelukast Sodium Active Tablets 10mg Unknown /0000 Vesicare Active Tablets 10mg Unknown /0000 Metoprolol Active Tablets 50mg Take 1/2 Unknown Tartrate /0000 Tablet Two Times A Day Clopidogrel Active Tablets 75mg Unknown Bisulfate /0000 Glipizide XL Active Tablets ER 2.5mg Take 1 Unknown /0000 24HR Tablet By Mouth Every Day Aspirin Active Tablets DR 81mg Unknown /0000 Klor-Con Active Packet 20Meq Unknown /0000 Tylenol Extra Active Tablets 500mg 2 by mouth Unknown Strength /0000 as needed Tums Active Chewtabs 500mg 1 by mouth Unknown /0000 every day Vitamin D 00/00 Active Tablets 1000Unit every day Unknown /0000 Proventil HFA 00 Active Aerosol 108(90Bas as needed Unknown /0000 e) mcg/Act Maxitrol 06/14 Hx Ointment 3.5-17691 3.500 apply thin H10.523 Mike -0.1 gm strip to Joe, - both eyes M.D. 11/12 at bedtime /2016 x 2weeks then stop Erythromycin 06/14 Hx Ointment 5mg/GM 1Tube Apply To H10.523 Mike Both Eyes Joe, - AT Night M.D. 11/12 Until Finished Maxitrol 04/15 Hx Ointment 3.5-08704 3.500 apply 10/09' H10.523 Suyapa Banda -0.1 gm to all [place], - lids every O.D. 06/14 night at bedtime x 2 weeks Nitrostat Hx Tablets 0.4mg Unknown /0000 Sub - 11/12 Simvastatin Hx Tablets 40mg Unknown /0000 - 11/12 Montelukast Sodium Hx Tablets 10mg Unknown /0000 - 11/12 Irbesartan Hx Tablets 150mg Unknown / - 11/12 Clopidogrel Hx Tablets 75mg Unknown Bisulfate / - 11/12 Hydrochlorothiazid 00 Hx Tablets 25mg Unknown e /0000 - 11/12 Metoprolol Hx Tablets 50mg Unknown Tartrate / - 11/12 Glipizide XL Hx Tablets ER 2.5mg Unknown /0000 24HR - 11/12 Qvar 00/ Hx Aerosol 80mcg/Act Unknown /0000 - 11/12 Ventolin HFA 00 Hx Aerosol 108(90Bas Unknown /0000 e) - mcg/Act 11/12 Diphenoxylate-Atro /00 Hx Tablets 2.5-0.025 Unknown pine /0000 mg - 11/12 Vesicare 00 Hx Tablets 5mg Take 1 Unknown /0000 Tablet By - Mouth 11/12 Every Day Aspirin / Hx Tablets 81mg Unknown / - 11/12 Vitamin D Hx Tablets 2000Unit every day Unknown /0000 - 11/12 Tums Hx Chewtabs 500mg Unknown /0000 - 11/12 Klor-Con M20 Hx Tablets ER 20Meq Unknown / - 11/12 Simvastatin Hx Tablets 40mg Take One Unknown /0000 Tablet By - Mouth Once 11/12 Prednisone Hx Tablets 50mg Take 1 Unknown /0000 Tablet By - Mouth 11/12 Albuterol Sulfate Hx Nebulizer (2.5mg/3M Inhale 1 Unknown /0000 L) 0.083% Vial - Content 11/12 Nebulizer Every 4 Hours as Needed For Cough Irbesartan Hx Tablets 150mg Unknown / - 11/12 Qvar Hx Aerosol 80mcg/Act Use as Unknown /0000 Directed 2 - Puffs Two 11/12 Times Day Gavilyte-C Hx Solution 240gm as Unknown /0000 Rec Directed - 11/12 Hydrocortisone Hx Cream 2.5% Unknown /0000 - 11/12 Cefuroxime Axetil Hx Tablets 500mg Unknown /0000 - 11/12 Azithromycin Hx Tablets 500mg Unknown /0000 - 11/12 Sulfamethoxazole/T Hx Tablets 800-160mg Unknown rimethoprim DS /0000 - 11/12 Erythromycin Hx Ointment 5mg/GM Unknown /0000 - 11/12 Neomycin/Polymyxin Hx Ointment 3.5-76016 Unknown /Dexamethasone /0000 -0.1 - 11/12 Fluzone High-Dose Hx Blossom 0.5ml Unknown /0000 - 11/12 Diphenoxylate-Atro Hx Tablets 2.5-0.025 Unknown pine /0000 mg - 11/12 Vesicare Hx Tablets 5mg Take 1 Unknown /0000 Tablet By - Mouth Once 11/12 A Results Description No Information Procedures Date CPT Code Description Status 03/18/2017 46404 Scanning Computerized Opthalmic Diagnostic Posterior Completed Seg Retina 03/18/2017 12700 Visual Field Exam Extended Completed 03/18/2017 87487 Est Patient Comprehensive Exam Completed 11/13/2016 30113 Scanning Computerized Opthalmic Diagnostic Posterior Completed Seg Retina 11/13/2016 40145 Visual Field Exam Extended Completed 11/13/2016 43768 Determination Of Refractive State Completed 11/13/2016 36828 Est Patient Comprehensive Exam Completed 06/14/2016 28767 Est Patient Intermediate Exam Completed 04/15/2016 61885 Est Patient Intermediate Exam Completed 03/12/2016 57624 Est Patient Comprehensive Exam Completed 03/12/2016 59056 Determination Of Refractive State Completed 03/12/2016 79125 Scanning Computerized Opthalmic Diagnostic Posterior Completed Seg Retina 03/13/2015 30946 Scanning Computerized Opthalmic Diagnostic Posterior Completed Seg Retina 03/13/2015 76530 Est Patient Comprehensive Exam Completed 09/22/2013 68585 Est Patient Comprehensive Exam Completed 09/15/2012 27064 Extracapsular Cataract Extraction W/Intraocular Lens Completed 09/09/2012 26159 Extracapsular Cataract Extraction W/Intraocular Lens Completed 09/03/2012 15519 Scanning Computerized Opthalmic Diagnostic Posterior Completed Seg Retina 09/03/2012 25849 Ophthalmic Biometry Completed 09/03/2012 24601 Ophthalmic Biometry Completed 08/31/2012 81741 Est Patient Intermediate Exam Completed 04/27/2012 27346 Est Patient Intermediate Exam Completed 09/17/2011 12844 Est Patient Intermediate Exam Completed 03/07/2011 58946 Est Patient Comprehensive Exam Completed 09/06/2010 18249 Determination Of Refractive State Completed 09/06/2010 75215 Est Patient Comprehensive Exam Completed 09/05/2009 97329 Determination Of Refractive State Completed 09/05/2009 52131 Est Patient Comprehensive Exam Completed 08/04/2008 01446 Est Patient Intermediate Exam Completed 06/30/2008 46070 Determination Of Refractive State Completed 06/30/2008 56421 Est Patient Comprehensive Exam Completed 06/17/2007 79780 Determination Of Refractive State Completed 06/17/2007 39863 Est Patient Comprehensive Exam Completed 06/02/2006 61019 Determination Of Refractive State Completed 06/02/2006 87458 Est Patient Comprehensive Exam Completed 05/23/2005 16768 Determination Of Refractive State Completed 05/23/2005 92318 Est Patient Comprehensive Exam Completed 05/23/2004 72169 Determination Of Refractive State Completed 05/23/2004 05707 Est Patient Comprehensive Exam Completed Encounters Type Date Location Provider CPT E/M Dx Office Visit 04/19/2016 Librado Casas MD, Suyapa Sethi, [address] H10.523 2:20p pc O.D. Office Visit 09/03/2012 Librado Casas MD, Librado Casas, [address]89 366.16 12:15p lucina Kerr 250.50 362.01 Plan of Care 04/06/2018 - Librado Casas M.D.E11.3293 Type 2 diab with mild nonp rtnop without macular edema, biComments:Smoking can increase the risk of developing or worsening any eye related disease, as well as affect your overall health. If you are a smoker, we strongly recommend that you quit.If you are not a smoker , we strongly recommend that you do not start. I can detect diabetic changes in your eyes. Proper control of your diabetes is important for the health of your eyes. It is important that you keep all of your follow up appointments. Dr. Casas has sent a report to your primary care doctor, letting them know the current status of your retina.Follow up:1 Year Follow Up OCT MAC You can expect to have your eyes dilated at your next visit. If Dr. Casas orders any additional testing, it may require extra time. We recommend that you bring sunglasses, as dilation drops often make you light sensitive until they wear off. We always recommend you bring someone to drive you home if you are uncomfortable driving with your eyes dilated. If you have any questions before your next visit, feel free to call our office at .M26.292 Refractive amblyopia, left eyeComments:You have Amblyopia in your left eye. You have never been able to see perfectly out of this eye.Z96.1 Presence of intraocular lensComments:The artificial lens implants in both eyes appear to be stable at this time.
--- NOTE | 2018-05-03 12:55 | ED ---
Shortness of Breath - HPI Summary HPI Summary: This is virgil Arce documenting for attending Dr. Franky Malin MD. This patient is a 87 year old M presenting to [facility] accompanied by a woman with a chief complaint of worsening SOB since two days ago. Patient reports cough, audible wheezing, and SOB. Patient denies CP. Pt is not given oxygen at home. Pt gave permission to be on a ventilator, if needed. PMHX COPD, asthma, CVA, and left ankle break. No PMHx fluid in the lungs or CHF. - History of Current Complaint Chief Complaint: EDShortnessOfBreath Time Seen by Provider: 05/03/18 12:23 Hx Obtained From: Patient, Family/[place] Consultant - /woman Onset/Duration: Gradual Onset - worse today Current Severity: Severe Associated Signs & Symptoms: Cough (Productive), Wheezing - Allergy/Home Medications Allergies/Adverse Reactions: Allergies Allergy/AdvReac Type Severity Reaction Status Date / Time baicalin [From Limbrel] Allergy Severe Swelling Verified 05/03/18 12:49 Of Face,Lips,& Throat catechin [From Limbrel] Allergy Severe Swelling Verified 05/03/18 12:49 Of Face,Lips,& Throat haloperidol Allergy Severe See Comment Verified 05/03/18 12:49 pregabalin Allergy See Comment Verified 05/03/18 12:49 captopril AdvReac Coughing Verified 05/03/18 12:49 Flavocoxid (From Limbrel) Allergy Swelling Uncoded 05/03/18 12:49 Of Face,Lips,& Throat Tunafish Allergy Swelling Uncoded 05/03/18 12:49 Of Face,Lips,& Throat PMH/Surg Hx/FS Hx/Imm Hx Endocrine/Hematology History: Reports: Hx Anticoagulant Therapy, Hx Blood Transfusions, Hx Diabetes, Hx Unexplained Bleeding Denies: Hx Anemia Cardiovascular History: Reports: Hx Angina, Hx Coronary Artery Disease, Hx Hypercholesterolemia, Hx Hypertension, Hx Myocardial Infarction, 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 Denies: Hx Congestive Heart Failure, Hx Pacemaker/ICD Respiratory History: Reports: Hx Asthma, Hx Chronic Obstructive Pulmonary Disease (COPD), Hx Pneumonia, Other Respiratory Problems/Disorders - PNEUMONIA GI History: Reports: Hx Gastrointestinal Bleed - 10/2016, Other GI Disorders - Esophagus ulcers, GI bleed History: Reports: Hx Kidney Stones, Other Problems/Disorders - Prostate CA Denies: Hx Renal Disease Musculoskeletal History: Reports: Hx Arthritis - HIPS/ HANDS Sensory History: Reports: Hx Cataracts, Hx Contacts or Glasses, Hx Deafness, Hx Hearing Aid, Hx Hearing Problem, Other Sensory Impairments Denies: Hx Glaucoma, Hx Legally Blind, Hx Macular Degeneration, Hx Vision Problem Opthamlomology History: Reports: Hx Cataracts, Hx Contacts or Glasses, Other Sensory Impairments Denies: Hx Glaucoma, Hx Legally Blind, Hx Macular Degeneration, Hx Vision Problem Neurological History: Reports: Hx Dementia - Mild Psychiatric History: Denies: Hx Anxiety, Hx Panic Disorder - Cancer History Cancer Type, Location and Year: prostate Hx Chemotherapy: Yes - 2006 Hx Radiation Therapy: Yes Hx Palliative Cancer Treatment: No - Surgical History Surgery Procedure, Year, and Place: YOUNG CHILD TONSILLECTOMY [facility]. 1971 RUPTURED APPENDIX [facility]. 2003 2 CARDIAC STENTS STRONG. 2004 PROSTATE [facility]. 2007 BILATERAL TUBES IN EARS [facility] Hx Anesthesia Reactions: No Infectious Disease History: No Infectious Disease History: Denies: Hx Clostridium Difficile, Hx Hepatitis, Hx Human Immunodeficiency Virus (HIV), Hx of Known/Suspected MRSA, Hx Shingles, Hx Tuberculosis, Hx Known/ Suspected VRE, Hx Known/Suspected VRSA, Traveled Outside the [place] in Last 30 Days - Family History Known Family History: Positive: Cardiac Disease - Social History Alcohol Use: None Substance Use Type: Reports: None Hx Tobacco Use: Yes Smoking Status (MU): Former Smoker Type: Cigarettes Have You Smoked in the Last Year: No Review of Systems Negative: Chest Pain Positive: Shortness Of Breath, Cough, Other - wheezing All Other Systems Reviewed And Are Negative: Yes Physical Exam - Summary Physical Exam Summary: Constitutional: Well-developed, Well-nourished, Alert. Pt is in respiratory distress and cannot speak. Skin: Warm, Dry HENT: Normocephalic; Atraumatic Eyes: Conjunctiva normal Neck: Musculoskeletal ROM normal neck. Cardio: Rhythm regular, rate normal, Heart sounds normal; Intact distal pulses; The pedal pulses are 2+ and symmetric. Radial pulses are 2+ and symmetric. Pulmonary/Chest wall: Respiratory distress, expiratory wheezes. Tight lung sounds. Minimal air movement. Abd: Soft. Musculoskeletal: Normal Neuro: Alert, Oriented x3 Psych: Mood and affect Normal Triage Information Reviewed: Yes Vital Signs On Initial Exam: Initial Vitals Temp Pulse Resp BP Pulse Ox 98.1 F 76 28 152/81 95 05/03/18 12:13 05/03/18 12:13 05/03/18 12:13 05/03/18 12:13 05/03/18 12:13 Vital Signs Reviewed: Yes Diagnostics - Vital Signs Vital Signs Temp Pulse Resp BP Pulse Ox 05/03/18 12:13 98.1 F 76 28 152/81 95 - Laboratory Result Diagrams: 05/03/18 12:43 05/03/18 12:43 Lab Statement: Any lab studies that have been ordered have been reviewed, and results considered in the medical decision making process. - Radiology CXR Radiology Interpretation Completed By: Radiologist - IMPRESSION: NO ACTIVE DISEASE. ER Physician has reviewed this report - EKG 12:35 Cardiac Rate: NL - 81bpm EKG Rhythm: Sinus Rhythm - No STEMI 12:45 Cardiac Rate: NL - 81bpm EKG Rhythm: Sinus Rhythm - No STEMI Re-Evaluation - Re-Evaluation First Eval Re-Evaluation Time: 12:40 Change: Improved Comment: Respirations are improved Second Eval Re-Evaluation Time: 13:19 Change: Improved Course/Dx - Course Course Of Treatment: This is scribe Jose Arce documenting for attending Dr. Franky Malin MD. This patient is a 87 year old M presenting to [facility] accompanied by a woman with a chief complaint of SOB since two days ago. Patient reports cough, audible wheezing, and SOB. Patient denies CP. Pt is not given oxygen at home. Pt gave permission to be on a ventilator, if needed. PMHX COPD, asthma, CVA, and left ankle break. No PMHx fluid in the lungs or CHF. An EKG reveals NSR 81 bpm, no STEMI. CXR reveals, per radiologist, no active disease. ED physician has reviewed this radiology report. Test results with no significant abnormalities except for lactic acid 3.5 H, troponin I .06 H. In the ED course the patient was given albuterol, ascorbic acid, aspirin, Lipitor, Tums, Vit. D, Plavix, Glipizide, Heparin, Hydrodiuril, Insulin, Cozaar , Magnesium sulfate, Solu-Medrol, Lopressor, Dulera, Singulair, Klor Con Er, Vesicare, and albuterol. Pt will be admitted with a diagnosis of COPD exacerbation and respiratory distress. - Diagnoses Provider Diagnoses: Respiratory distress, COPD exacerbation Discharge - Sign-Out/Discharge Documenting (check all that apply): Patient Departure - Admit - Discharge Plan Condition: Fair Disposition: ADMITTED TO [facility]
[2018-05-03 13:00] LABS: ABS Basophils 0.1 10^3/ul (0-0.2); ABS Eosinophils 0.6 10^3/ul (0-0.6); ABS Lymphocytes 2.4 10^3/ul (1.0-4.8); ABS Monocytes 1.1 10^3/ul (0-0.8); ABS Nucleated RBC 0 10^3/ul; Hematocrit 38 % (42-52); Hemoglobin 13.2 g/dl (14.0-18.0); Lymphocyte % 23.5 % (25-47); Mean Corpuscular HGB Conc 35 g/dl (31-36); Mean Corpuscular Hemoglobin 30 pg (27-31); Mean Corpuscular Volume 87 fL (80-94); Mean Platelet Volume 8.3 um3 (7.4-10.4); Nucleated Red Blood Cells % 0.1; Platelet Count 207 10^3/ul (150-450); Red Blood Count 4.35 10^6/ul (4.00-5.40); Red Cell Distribution Width 16 % (10.5-15); White Blood Count 10.1 10^3/ul (3.5-10.8)
--- NOTE | 2018-05-03 13:05 | RAD ---
INDICATION: Short of breath COMPARISON: March 27, 2017 TECHNIQUE: An AP portable view obtained at 1240 hours is submitted. FINDINGS: Bones/Soft Tissues: There are no acute bony findings. Cardiomediastinal: The cardiomediastinal silhouette is normal. Lungs: There are no infiltrates. Pleura: There are no pleural effusions. Other: None IMPRESSION: NO ACTIVE DISEASE.
[2018-05-03] MEDS ORDERED: Magnesium Sulfate 2 GM IV* 2 GM/50 ML BAG IVPB ONE (13:19)
[2018-05-03 13:20] LABS: EGFR Non-African American 60.4 (>60)
[2018-05-03] MEDS ORDERED: Dextrose 50% Syringe 50 ML* 25 GM/50 ML SYRINGE IV PUSH PRN (14:28)
[2018-05-03] MEDS: Azithromycin IV(*) 500 MG in NS 0.9% 250 ML* 250 ML IVPB SCH (15:25)
[2018-05-03] MEDS: Heparin VIAL(*) 5000 UNITS/ML VIAL (FIVE THOUSAND) SUBCUT SCH ×2 (15:26→21:54)
[2018-05-03] MEDS: Albuterol 2.5 MG/3 ML NEB.SOL* (0.083%) INH SCH ×2 (15:33→20:23)
[2018-05-03] MEDS ORDERED: NS 0.9% 1000 ML* 1,000 ML IV ONE (16:33)
[2018-05-03] MEDS: Metoprolol Tartrate TAB* 25 MG PO SCH (16:51)
[2018-05-03] MEDS: Atorvastatin* 80 MG TAB PO SCH (16:51)
[2018-05-03] MEDS: Benzonatate CAP* 100 MG PO PRN (16:51)
[2018-05-03] MEDS: Insulin LISPRO* 1 UNITS UNIT SUBCUT SCH ×2 (18:04→21:55)
[2018-05-03] MEDS: Losartan TAB* 25 MG PO SCH (18:04)
[2018-05-03] MEDS: Insulin GLARGINE(*) 1 UNITS UNIT SUBCUT SCH (18:05)
--- NOTE | 2018-05-03 18:12 | HP ---
CC: Dr. Blevins; Dr. Nicholas * HISTORY AND PHYSICAL: DATE OF ADMISSION: 05/03/18 PRIMARY CARE PROVIDER: Dr. Blevins. SURFACE WATER MANAGER: Dr. Nicholas. CHIEF COMPLAINT: Shortness of breath. HISTORY OF PRESENT ILLNESS: Mr. Simmons is an 87-year-old male, who is generally hard of hearing and therefore the history was obtained from the patient's . She states over the last couple of days, he has developed significant shortness of breath. The patient has had increased cough and wheezing. Anytime he gets up to move, wheezing is noted. The patient's tried giving an albuterol tablet, which did help for a little while; however, did not provide a sustained response. He then used his nebulizer 3 times the day prior to admission. He still has not improved at all and therefore he was brought to the emergency room today. The patient denies any sick contacts. He denies any recent fevers or chills. He is coughing and bringing up yellow mucus. He typically does not bring up mucus. This has only been going on for the last couple of days. The patient does have lower extremity swelling, most notably about the left ankle, but this was the ankle he fractured in October of this year. PAST MEDICAL HISTORY: 1. Type 2 diabetes. 2. Hypertension. 3. History of CVA. 4. History of GI bleed. 5. Coronary artery disease. 6. History of prostate cancer. PAST SURGICAL HISTORY: 1. Appendectomy. 2. Tonsillectomy. 3. Prostatectomy. 4. Circumcision. MEDICATIONS: 1. Santyl apply topically daily to wound on right great toe. 2. Ferrous sulfate 65 mg p.o. daily. 3. Calcium carbonate 1000 mg p.o. daily. 4. Ascorbic acid 500 mg p.o. daily. 5. Albuterol 2 puffs inhaled q.4 hours p.r.n. shortness of breath. 6. Tylenol 500 mg p.o. q.6 hours p.r.n. pain. 7. VESIcare 10 mg p.o. daily. 8. Singulair 10 mg p.o. q.h.s. 9. Dulera 200/5 two puffs inhaled b.i.d. 10. Lantus 24 units subcutaneous q.p.m. 11. Lipitor 80 mg p.o. q.p.m. 12. Potassium chloride 20 mEq p.o. daily. 13. Metoprolol tartrate 25 mg p.o. b.i.d. with meals. 14. Losartan 50 mg p.o. q.p.m. 15. Glipizide XL 2.5 mg p.o. daily. 16. Vitamin D 1000 units p.o. daily. 17. Hydrochlorothiazide 25 mg p.o. daily. 18. Plavix 75 mg p.o. daily. 19. Aspirin 81 mg p.o. daily. 20. Lansoprazole 30 mg p.o. daily. ALLERGIES: LIMBREL, HALDOL, LYRICA, CAPTOPRIL, TUNA FISH. FAMILY HISTORY: Mom had a history of diabetes and coronary disease. Dad had a history of coronary disease. SOCIAL HISTORY: The patient is a former smoker. He smoked a pack a day for 7 to 8 years. He quit over 55 years ago. He drinks alcohol rarely. 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 His , Jelena, is his healthcare proxy. REVIEW OF SYSTEMS: A complete 11-system review of systems was obtained. Pertinent positives and negatives are as per HPI and in addition the patient does complain of incontinence, which has been a chronic issue and otherwise the review of systems is negative. PHYSICAL EXAMINATION GENERAL: The patient is a well-developed, elderly male seen sitting up in the stretcher, appearing slightly tachypneic with audible upper respiratory tract transmitted breath sounds. VITAL SIGNS: Blood pressure 153/78, pulse 80, respirations 22, temp 97.9, O2 sat 97% on 6 L of oxygen via simple mask. HEENT: Pupils are equal and round. Extraocular muscles are intact. Oropharynx is clear. Oral mucosa is moist. NECK: There is no submandibular, cervical, or supraclavicular adenopathy. Thyroid is not enlarged. No thyroid nodules are noted. PULMONARY: Breath sounds are markedly diminished throughout. There are a few expiratory wheezes, but generally all that is heard are transmitted upper airway sounds. CARDIAC: Normal S1, S2. Heart sounds are very distant and hard to hear over the patient's upper airway transmitted sounds. There is 1+ bilateral lower extremity pitting edema, left being worse than the right. ABDOMEN: Bowel sounds are present. Abdomen is soft, nontender, and nondistended. MUSCULOSKELETAL: There is no cyanosis or clubbing of the digits. There is full active range of motion of all 4 extremities. NEURO: Cranial nerves II through XII are grossly intact. Sensation is intact to light touch throughout. PSYCH: The patient is alert. He is oriented x3. Affect appears appropriate. SKIN: Warm and dry. There are no rashes. DIAGNOSTIC STUDIES/LAB DATA: WBC 10.1, hemoglobin 13.2, hematocrit 38, platelets 207. Sodium 134, potassium 4.1, chloride 102, CO2 of 21, BUN 13, creatinine 1.15, glucose 203, lactic acid 3.5, calcium 9.4. Bilirubin 0.6, AST 22, ALT 20, alk phos 65. Troponin 0.06. BNP 84. Albumin 3.8. Chest x-ray: No active disease. EKG reveals normal sinus rhythm and it is very difficult to interpret baseline and a right bundle branch block. ASSESSMENT AND PLAN: Mr. Simmons is an 87-year-old male, who has a history of chronic obstructive pulmonary disease, type 2 diabetes, hypertension, coronary artery disease, and past cerebrovascular accident, who presents to the emergency room with complaints of shortness of breath and is now being admitted for possible chronic obstructive pulmonary disease exacerbation. 1. Dyspnea. The most likely etiology at this point is chronic obstructive pulmonary disease exacerbation. The patient does have swelling of his legs, which may be considered congestive heart failure as a cause to his shortness of breath; however, his BNP is not elevated. Swelling in the left leg could be attributed to the recently broken ankle. The patient will be treated for a chronic obstructive pulmonary disease exacerbation and if he fails to improve with just treatment for this, perhaps diuretic therapy could be initiated, see if he responds. In terms of chronic obstructive pulmonary disease exacerbation treatment, the patient will be started on Solu-Medrol 40 mg IV q.12 hours and albuterol nebs every 4 hours while awake. Additionally, he will continue on his Dulera. The patient will be started on azithromycin 500 mg IV daily. A procalcitonin has been added and the results of this are pending. I suspect much of the concern for wheezing was in fact upper airway transmitted sounds. It sounds as if he has mucus stuck within his throat that needs to be cleared. We will order a flutter valve for the patient to utilize. The patient's respiratory status will be monitored closely. 2. Type 2 diabetes. The patient had a hemoglobin A1c last checked in November 2017 that was 6.6%. The patient will be started on Solu-Medrol, which will almost guarantee that his blood sugars will elevate. He will continue on his usual dose of Lantus and glipizide, but I will also add a lispro sliding scale. Hopefully, we can get him off the IV Solu-Medrol quickly down to a short prednisone taper. 3. Hypertension. The patient's blood pressure is under fair control. He will continue on his usual home medication regimen. Adjustments will be made if needed to his home meds. 4. Coronary artery disease. The patient will continue on his aspirin, Plavix, beta kathleen, ARB, and statin. The patient does have an elevated troponin at this point of 0.06. I suspect this represents demand ischemia. Followup troponin will be obtained at 1630. 5. Lactic acidosis. The patient has mildly elevated lactic acid of 3.5. I suspect this is secondary to the increased of work of breathing that he was experiencing prior to admission. The patient's lactic acid level will be followed up at 1630. 6. Incontinence. Continue VESIcare. 7. DVT prophylaxis. According to the Adult Thrombosis Prophylaxis Risk Factor Assessment Guide, the patient has a total risk factor score of 5 making him the highest risk. He will be placed on heparin 5000 units subcutaneous q.8 hours. 8. Code status is full. TIME SPENT: Sixty-five minutes was spent admitting this patient, of which greater than half was spent [id number] with the patient and his reviewing his history and performing physical exam as well as reviewing old records. [id number]/[facility] #: [id number] MARCELO
[2018-05-03] MEDS: Mometasone/Formoter 200/5 MDI INH SCH (20:23)
[2018-05-03] MEDS: methylPREDNISolone SOD 40 MG* 1 ML VIAL IV SCH (21:54)
[2018-05-03] MEDS: Montelukast Sodium TAB* 10 MG PO SCH (21:54)
[2018-05-03] MEDS: guaiFENesin ER TAB 600 MG PO SCH (21:59)
[2018-05-03] MEDS: NS 0.9% 1000 ML* 1,000 ML IV SCH (22:09)
[2018-05-04] MEDS: Albuterol 2.5 MG/3 ML NEB.SOL* (0.083%) INH SCH ×7 (00:44→23:10)
[2018-05-04] MEDS: CMC:Pantoprazole TAB (NF) 40 MG TAB PO SCH (05:52)
[2018-05-04] MEDS: Heparin VIAL(*) 5000 UNITS/ML VIAL (FIVE THOUSAND) SUBCUT SCH ×3 (05:52→21:23)
[2018-05-04] MEDS: Mometasone/Formoter 200/5 MDI INH SCH ×2 (07:36→19:18)
--- NOTE | 2018-05-04 08:54 | PN ---
Subjective Date of Service: 05/04/18 Interval History: Pt is feeling about the same today as yesterday. His notices his breathing is much quieter. He is still getting SOB with limited exertion. Some cough and sputum production. Objective Active Medications: Albuterol (Ventolin 2.5 Mg/3 Ml Neb.Shayla*) 2.5 mg INH [id number] AWAKE [facility] Last Admin: 05/04/18 06:08 Dose: 2.5 mg Ascorbic Acid (Vitamin C Tab*) 500 mg PO DAILY [facility] Aspirin (Aspirin Ec Tab*) 81 mg PO QAM [facility] Atorvastatin Calcium (Lipitor*) 80 mg PO 1700 [facility] Last Admin: 05/03/18 16:51 Dose: 80 mg Benzonatate (Tessalon Cap*) 100 mg PO TID PRN PRN Reason: cough Last Admin: 05/03/18 16:51 Dose: 100 mg Calcium Carbonate (Tums*) 1,000 mg PO DAILY [facility] Cholecalciferol (Vitamin D Tab*) 1,000 units PO QAM [facility] Clopidogrel Bisulfate (Plavix Tab*) 75 mg PO QAM [facility] Dextrose (D50w Syringe 50 Ml*) 12.5 gm IV PUSH .FOR FS < 60 - SS PRN PRN Reason: FS < 60 Glipizide (Glucotrol Xl*) 2.5 mg PO DAILY [facility] Guaifenesin (Mucinex*) 1,200 mg PO BID [facility] Last Admin: 05/03/18 21:59 Dose: 1,200 mg Heparin Sodium (Porcine) (Heparin Vial(*)) 5,000 units SUBCUT Q8HR [facility] Last Admin: 05/04/18 05:52 Dose: 5,000 units Hydrochlorothiazide (Hydrodiuril Tab*) 25 mg PO QAM [facility] Azithromycin 500 mg/ Sodium (Chloride) 250 mls @ 250 mls/hr IVPB Q24H [facility] Last Admin: 05/03/18 15:25 Dose: 250 mls/hr Sodium Chloride (Ns 0.9% 1000 Ml*) 1,000 mls @ 75 mls/hr IV PER RATE [facility] Last Admin: 05/03/18 22:09 Dose: 75 mls/hr Insulin Glargine (Lantus(*)) 24 units SUBCUT QPM [facility] Last Admin: 05/03/18 18:05 Dose: 24 units Insulin Human Lispro (Humalog*) 0 units SUBCUT ACHS [facility]; Protocol Last Admin: 05/03/18 21:55 Dose: 10 units Losartan Potassium (Cozaar Tab*) 50 mg PO QPM [facility] Last Admin: 05/03/18 18:04 Dose: 50 mg Methylprednisolone Sodium Succinate (Solu-Medrol 40 Mg) 40 mg IV Q12H [facility] Last Admin: 05/03/18 21:54 Dose: 40 mg Metoprolol Tartrate (Lopressor Tab*) 25 mg PO BID WITH MEALS [facility] Last Admin: 05/03/18 16:51 Dose: 25 mg Mometasone Furoate/Formoterol Fumar (Dulera 200/5 Mdi*) 2 puff INH BID [facility] Last Admin: 05/04/18 07:36 Dose: 2 puff Montelukast Sodium (Singulair Tab*) 10 mg PO BEDTIME [facility] Last Admin: 05/03/18 21:54 Dose: 10 mg Pantoprazole Sodium (Protonix Tab (Nf)) 40 mg PO DAILY@0600 [facility] Last Admin: 05/04/18 05:52 Dose: 40 mg Potassium Chloride (Klor Con Er Tab*) 20 meq PO DAILY [facility] Solifenacin (Vesicare(Nf)) 10 mg PO QAM [facility] Vital Signs - 8 hr 05/04/18 05/04/18 05/04/18 02:39 06:09 07:43 Temperature 98.1 F Pulse Rate 90 89 85 Respiratory 16 18 16 Rate Blood Pressure 153/48 (mmHg) O2 Sat by Pulse 94 99 96 Oximetry Oxygen Devices in Use Now: Simple Face Mask - 4L, OxyMask Appearance: Elderly male sitting up in bed, NAD Eyes: No Scleral Icterus Ears/Nose/Mouth/Throat: Mucous Membranes Moist Respiratory: Symmetrical Chest Expansion and Respiratory Effort, - - Pt is much less tachypnic today than yesterday, improved air movement bilaterally, still few expiratory wheezes noted Cardiovascular: NL Sounds; No Murmurs; No JVD, RRR Abdominal: NL Sounds; No Tenderness; No Distention Skin: No Nodules or Sclerosis Neurological: - - [place], ? mildly confused, his answers most questions for him Result Diagrams: 05/03/18 12:43 05/03/18 12:43 Microbiology and Other Data: Microbiology 05/03/18 12:43 Aerobic Blood Culture - Preliminary Blood Venous Assess/Plan/Problems-Billing Mr Simmons is an 87 yo M who has a h/o COPD, Type II DM, HTN, CAD and h/o CVA who presented to the ER with c/o SOB and was admitted for a COPD exacerbation. - Patient Problems (1) COPD exacerbation Current Visit: Yes Status: Acute Code(s): J44.1 - CHRONIC OBSTRUCTIVE PULMONARY DISEASE W (ACUTE) EXACERBATION SNOMED Code(s): 727376341 Comment: Improving slowly. Will continue solumedrol, standing nebs. Monitor O2 saturation. He needs another night with ongoing treatment. (2) Type 2 diabetes mellitus Current Visit: No Status: Chronic Comment: Continue current insulin regimen. Monitor sugars-elevated secondary to steroid use. (3) HTN (hypertension) Current Visit: Yes Status: Acute Code(s): I10 - ESSENTIAL (PRIMARY) HYPERTENSION SNOMED Code(s): 20168517 Comment: BP under fair control. Continue current regimen. (4) Hypercholesteremia Current Visit: Yes Status: Chronic Code(s): E78.0 - PURE HYPERCHOLESTEROLEMIA * DO NOT USE * SNOMED Code(s): 66585528 Comment: Continue statin. (5) DVT prophylaxis Current Visit: Yes Status: Acute Code(s): PJH8796 - SNOMED Code(s): 518276053 Comment: SQ heparin (6) Full code status Current Visit: Yes Status: Acute Code(s): Z78.9 - OTHER SPECIFIED HEALTH STATUS SNOMED Code(s): 434212021
[2018-05-04] MEDS: guaiFENesin ER TAB 600 MG PO SCH ×2 (09:13→21:22)
[2018-05-04] MEDS: Aspirin EC TAB* 81 MG TAB.EC PO SCH (09:13)
[2018-05-04] MEDS: Calcium Carbonate CHEW TAB* 500 MG (TUMS) PO SCH (09:13)
[2018-05-04] MEDS: Potassium Chlor TAB* 20 MEQ TAB.ER PO SCH (09:14)
[2018-05-04] MEDS: glipiZIDE TAB.XL* 2.5 MG PO SCH (09:14)
[2018-05-04] MEDS: Clopidogrel TAB* 75 MG PO SCH (09:15)
[2018-05-04] MEDS: Cholecalciferol TAB* 1000 UNITS PO SCH (09:15)
[2018-05-04] MEDS: Hydrochlorothiazide TAB* 25 MG PO SCH (09:15)
[2018-05-04] MEDS: Metoprolol Tartrate TAB* 25 MG PO SCH ×2 (09:16→17:32)
[2018-05-04] MEDS: Benzonatate CAP* 100 MG PO PRN (09:16)
[2018-05-04] MEDS: Insulin LISPRO* 1 UNITS UNIT SUBCUT SCH ×4 (09:16→21:57)
[2018-05-04] MEDS: Ascorbic Acid TAB* 500 MG PO SCH (09:17)
[2018-05-04] MEDS: SOLIFENACIN 10 MG PO SCH (09:17)
[2018-05-04] MEDS: methylPREDNISolone SOD 40 MG* 1 ML VIAL IV SCH ×2 (09:17→21:21)
[2018-05-04] MEDS ORDERED: guaiFENesin/CODIEN 100MG-10MG* 5 ML UDC PO PRN (11:26)
[2018-05-04] MEDS: Azithromycin IV(*) 500 MG in NS 0.9% 250 ML* 250 ML IVPB SCH (15:36)
[2018-05-04] MEDS: Atorvastatin* 80 MG TAB PO SCH (17:32)
[2018-05-04] MEDS: Losartan TAB* 25 MG PO SCH (17:33)
[2018-05-04] MEDS: Insulin GLARGINE(*) 1 UNITS UNIT SUBCUT SCH (17:34)
[2018-05-04] MEDS: Montelukast Sodium TAB* 10 MG PO SCH (21:22)
[2018-05-05] MEDS: NS 0.9% 1000 ML* 1,000 ML IV SCH (02:33)
[2018-05-05] MEDS: Albuterol 2.5 MG/3 ML NEB.SOL* (0.083%) INH SCH ×6 (04:23→23:46)
[2018-05-05] MEDS: Heparin VIAL(*) 5000 UNITS/ML VIAL (FIVE THOUSAND) SUBCUT SCH ×3 (06:07→22:23)
[2018-05-05] MEDS: CMC:Pantoprazole TAB (NF) 40 MG TAB PO SCH (06:07)
[2018-05-05] MEDS: Mometasone/Formoter 200/5 MDI INH SCH ×2 (08:02→19:44)
[2018-05-05] MEDS: SOLIFENACIN 10 MG PO SCH (08:07)
[2018-05-05] MEDS: guaiFENesin ER TAB 600 MG PO SCH ×2 (08:36→22:13)
[2018-05-05] MEDS: Metoprolol Tartrate TAB* 25 MG PO SCH ×2 (08:38→17:18)
[2018-05-05] MEDS: Ascorbic Acid TAB* 500 MG PO SCH (08:38)
[2018-05-05] MEDS: methylPREDNISolone SOD 40 MG* 1 ML VIAL IV SCH ×2 (08:38→22:23)
[2018-05-05] MEDS: Cholecalciferol TAB* 1000 UNITS PO SCH (08:38)
[2018-05-05] MEDS: glipiZIDE TAB.XL* 2.5 MG PO SCH (08:38)
[2018-05-05] MEDS: Aspirin EC TAB* 81 MG TAB.EC PO SCH (08:38)
[2018-05-05] MEDS: Clopidogrel TAB* 75 MG PO SCH (08:38)
[2018-05-05] MEDS: Potassium Chlor TAB* 20 MEQ TAB.ER PO SCH (08:38)
[2018-05-05] MEDS: Hydrochlorothiazide TAB* 25 MG PO SCH (08:38)
[2018-05-05] MEDS: Insulin LISPRO* 1 UNITS UNIT SUBCUT SCH ×4 (08:39→22:14)
[2018-05-05] MEDS: Calcium Carbonate CHEW TAB* 500 MG (TUMS) PO SCH (08:39)
[2018-05-05] MEDS: Azithromycin IV(*) 500 MG in NS 0.9% 250 ML* 250 ML IVPB SCH (15:16)
[2018-05-05] MEDS ORDERED: Furosemide IV* 10 MG/ML 2 ML VIAL (20 MG) IV ONE (16:06)
--- NOTE | 2018-05-05 16:11 | PN ---
Subjective Date of Service: 05/05/18 Interval History: Pt is feeling better today but per nursing he is still visibly dyspnic with talking and ambulation. He has still had some wheezing. Some cough with frothy white sputum, also notes he has coughed up some greenish sputum. Objective Active Medications: Albuterol (Ventolin 2.5 Mg/3 Ml Neb.Shayla*) 2.5 mg INH [id number] AWAKE [facility] Last Admin: 05/05/18 15:51 Dose: 2.5 mg Ascorbic Acid (Vitamin C Tab*) 500 mg PO DAILY [facility] Last Admin: 05/05/18 08:38 Dose: 500 mg Aspirin (Aspirin Ec Tab*) 81 mg PO QAM [facility] Last Admin: 05/05/18 08:38 Dose: 81 mg Atorvastatin Calcium (Lipitor*) 80 mg PO 1700 [facility] Last Admin: 05/04/18 17:32 Dose: 80 mg Benzonatate (Tessalon Cap*) 100 mg PO TID PRN PRN Reason: cough Last Admin: 05/04/18 09:16 Dose: 100 mg Calcium Carbonate (Tums*) 1,000 mg PO DAILY [facility] Last Admin: 05/05/18 08:39 Dose: 1,000 mg Cholecalciferol (Vitamin D Tab*) 1,000 units PO QAM [facility] Last Admin: 05/05/18 08:38 Dose: 1,000 units Clopidogrel Bisulfate (Plavix Tab*) 75 mg PO QAM [facility] Last Admin: 05/05/18 08:38 Dose: 75 mg Dextrose (D50w Syringe 50 Ml*) 12.5 gm IV PUSH .FOR FS < 60 - SS PRN PRN Reason: FS < 60 Glipizide (Glucotrol Xl*) 2.5 mg PO DAILY [facility] Last Admin: 05/05/18 08:38 Dose: 2.5 mg Guaifenesin (Mucinex*) 1,200 mg PO BID [facility] Last Admin: 05/05/18 08:36 Dose: 1,200 mg Guaifenesin/Codeine Phosphate (Robitussin Ac 100mg-10mg*) 5 ml PO Q6H PRN PRN Reason: COUGH Last Admin: 05/04/18 12:03 Dose: 5 ml Heparin Sodium (Porcine) (Heparin Vial(*)) 5,000 units SUBCUT Q8HR [facility] Last Admin: 05/05/18 15:16 Dose: 5,000 units Hydrochlorothiazide (Hydrodiuril Tab*) 25 mg PO QAM [facility] Last Admin: 05/05/18 08:38 Dose: 25 mg Azithromycin 500 mg/ Sodium (Chloride) 250 mls @ 250 mls/hr IVPB Q24H [facility] Last Admin: 05/05/18 15:16 Dose: 250 mls/hr Sodium Chloride (Ns 0.9% 1000 Ml*) 1,000 mls @ 75 mls/hr IV PER RATE [facility] Last Admin: 05/05/18 02:33 Dose: 75 mls/hr Insulin Glargine (Lantus(*)) 24 units SUBCUT QPM [facility] Last Admin: 05/04/18 17:34 Dose: 24 units Insulin Human Lispro (Humalog*) 0 units SUBCUT ACHS [facility]; Protocol Last Admin: 05/05/18 11:55 Dose: 4 units Losartan Potassium (Cozaar Tab*) 50 mg PO QPM [facility] Last Admin: 05/04/18 17:33 Dose: 50 mg Methylprednisolone Sodium Succinate (Solu-Medrol 40 Mg) 40 mg IV Q12H [facility] Last Admin: 05/05/18 08:38 Dose: 40 mg Metoprolol Tartrate (Lopressor Tab*) 25 mg PO BID WITH MEALS [facility] Last Admin: 05/05/18 08:38 Dose: 25 mg Mometasone Furoate/Formoterol Fumar (Dulera 200/5 Mdi*) 2 puff INH BID [facility] Last Admin: 05/05/18 08:02 Dose: 2 puff Montelukast Sodium (Singulair Tab*) 10 mg PO BEDTIME [facility] Last Admin: 05/04/18 21:22 Dose: 10 mg Pantoprazole Sodium (Protonix Tab (Nf)) 40 mg PO DAILY@0600 [facility] Last Admin: 05/05/18 06:07 Dose: 40 mg Potassium Chloride (Klor Con Er Tab*) 20 meq PO DAILY [facility] Last Admin: 05/05/18 08:38 Dose: 20 meq Solifenacin (Vesicare(Nf)) 10 mg PO QAM [facility] Last Admin: 05/05/18 08:07 Dose: Not Given Vital Signs - 8 hr 05/05/18 05/05/18 05/05/18 08:17 08:19 11:33 Temperature 97.5 F Pulse Rate 62 Respiratory 24 Rate Blood Pressure 141/74 (mmHg) O2 Sat by Pulse 88 92 94 Oximetry 05/05/18 15:13 Temperature 97.7 F Pulse Rate 81 Respiratory 17 Rate Blood Pressure 136/62 (mmHg) O2 Sat by Pulse 93 Oximetry Oxygen Devices in Use Now: None Appearance: Elderly male sitting up in a chair, NAD Eyes: No Scleral Icterus Ears/Nose/Mouth/Throat: Mucous Membranes Moist Respiratory: Symmetrical Chest Expansion and Respiratory Effort, Clear to Auscultation - diffuse scattered wheezes Cardiovascular: NL Sounds; No Murmurs; No JVD, RRR, - - 1+ B/L LE edema Abdominal: NL Sounds; No Tenderness; No Distention Extremities: No Clubbing, Cyanosis Skin: No Nodules or Sclerosis Neurological: Alert and Oriented x 3 Result Diagrams: 05/03/18 12:43 05/03/18 12:43 Microbiology and Other Data: Microbiology 05/03/18 12:43 Aerobic Blood Culture - Preliminary Blood Venous Assess/Plan/Problems-Billing Mr Simmons is an 87 yo M who has a h/o COPD, Type II DM, HTN, CAD and h/o CVA who presented to the ER with c/o SOB and was admitted for a COPD exacerbation. - Patient Problems (1) COPD exacerbation Current Visit: Yes Status: Acute Code(s): J44.1 - CHRONIC OBSTRUCTIVE PULMONARY DISEASE W (ACUTE) EXACERBATION SNOMED Code(s): 806890434 Comment: Improving slowly. I think one more night in the hospital to receive nebs and IV steroids would be beneficial to the patient. Additionally he has been receiving IV the entire time he is here and I think may be slightly fluid overloaded. Will give lasix 20mg IV x1 now. (2) Type 2 diabetes mellitus Current Visit: Yes Status: Chronic Comment: Sugars remain uncontrolled. Will increase lantus to 30 units tonight. MOnitor sugars. Continue sliding scale. Continue glipizide. (3) HTN (hypertension) Current Visit: Yes Status: Acute Code(s): I10 - ESSENTIAL (PRIMARY) HYPERTENSION SNOMED Code(s): 90105176 Comment: BP under fair control. Continue current regimen. (4) Hypercholesteremia Current Visit: Yes Status: Chronic Code(s): E78.0 - PURE HYPERCHOLESTEROLEMIA * DO NOT USE * SNOMED Code(s): 97130544 Comment: Continue statin. (5) DVT prophylaxis Current Visit: Yes Status: Acute Code(s): ASH5847 - SNOMED Code(s): 649498354 Comment: SQ heparin (6) Full code status Current Visit: Yes Status: Acute Code(s): Z78.9 - OTHER SPECIFIED HEALTH STATUS SNOMED Code(s): 011200700
[2018-05-05] MEDS: Atorvastatin* 80 MG TAB PO SCH (17:17)
[2018-05-05] MEDS: Losartan TAB* 25 MG PO SCH (17:18)
[2018-05-05] MEDS ORDERED: Insulin GLARGINE(*) 1 UNITS UNIT SUBCUT SCH (18:00)
[2018-05-05] MEDS: Montelukast Sodium TAB* 10 MG PO SCH (22:14)
[2018-05-06] MEDS: Albuterol 2.5 MG/3 ML NEB.SOL* (0.083%) INH SCH ×3 (03:39→11:10)
[2018-05-06] MEDS: CMC:Pantoprazole TAB (NF) 40 MG TAB PO SCH (06:06)
[2018-05-06] MEDS: Heparin VIAL(*) 5000 UNITS/ML VIAL (FIVE THOUSAND) SUBCUT SCH (06:06)
[2018-05-06] MEDS: Mometasone/Formoter 200/5 MDI INH SCH (07:25)
[2018-05-06] MEDS: Insulin LISPRO* 1 UNITS UNIT SUBCUT SCH ×2 (08:32→15:13)
[2018-05-06] MEDS ORDERED: Solifenacin(NF) 5 MG TAB PO SCH (09:00)
[2018-05-06] MEDS: Metoprolol Tartrate TAB* 25 MG PO SCH (10:07)
[2018-05-06] MEDS: Cholecalciferol TAB* 1000 UNITS PO SCH (10:07)
[2018-05-06] MEDS: Hydrochlorothiazide TAB* 25 MG PO SCH (10:07)
[2018-05-06] MEDS: guaiFENesin ER TAB 600 MG PO SCH (10:07)
[2018-05-06] MEDS: Calcium Carbonate CHEW TAB* 500 MG (TUMS) PO SCH (10:07)
[2018-05-06] MEDS: Potassium Chlor TAB* 20 MEQ TAB.ER PO SCH (10:07)
[2018-05-06] MEDS: Aspirin EC TAB* 81 MG TAB.EC PO SCH (10:07)
[2018-05-06] MEDS: Clopidogrel TAB* 75 MG PO SCH (10:07)
[2018-05-06] MEDS: glipiZIDE TAB.XL* 2.5 MG PO SCH (10:08)
[2018-05-06] MEDS: Ascorbic Acid TAB* 500 MG PO SCH (10:34)
[2018-05-06] MEDS: methylPREDNISolone SOD 40 MG* 1 ML VIAL IV SCH (11:01)
[2018-05-06] MEDS ORDERED: Albuterol 2.5 MG/3 ML NEB.SOL* (0.083%) INH PRN (11:09)
--- NOTE | 2018-05-06 12:43 | PN ---
Subjective Date of Service: 05/06/18 Interval History: Patient seen and examined at bedside. Denies fever, chills, shortness of breath (not increased and at baseline now), chest discomfort, N/V/D. Pt continues to have a productive cough with "white foamy mucous". Pt feels well enough for discharge to home today. Pt was requiring O2 with ambulation yesterday, we will check check him today. Family History: Unchanged from Admission Social History: Unchanged from Admission Past Medical History: Unchanged from Admission Objective Active Medications: Albuterol (Ventolin 2.5 Mg/3 Ml Neb.Shayla*) 2.5 mg INH [id number] AWAKE PRN Reason: SOB/WHEEZING Ascorbic Acid (Vitamin C Tab*) 500 mg PO DAILY [facility] Aspirin (Aspirin Ec Tab*) 81 mg PO QAM LOS Atorvastatin Calcium (Lipitor*) 80 mg PO 1700 LOS Benzonatate (Tessalon Cap*) 100 mg PO TID PRN Reason: cough Calcium Carbonate (Tums*) 1,000 mg PO DAILY [facility] Cholecalciferol (Vitamin D Tab*) 1,000 units PO QAM LOS Clopidogrel Bisulfate (Plavix Tab*) 75 mg PO QAM [facility] Dextrose (D50w Syringe 50 Ml*) 12.5 gm IV PUSH .FOR FS < 60 - SS PRN Reason: FS < 60 Glipizide (Glucotrol Xl*) 2.5 mg PO DAILY [facility] Guaifenesin (Mucinex*) 1,200 mg PO BID [facility] Guaifenesin/Codeine Phosphate (Robitussin Ac 100mg-10mg*) 5 ml PO Q6H PRN Reason: COUGH Heparin Sodium (Porcine) (Heparin Vial(*)) 5,000 units SUBCUT Q8HR LOS Hydrochlorothiazide (Hydrodiuril Tab*) 25 mg PO QAM [facility] Azithromycin 500 mg/ Sodium (Chloride) 250 mls @ 250 mls/hr IVPB Q24H LOS Sodium Chloride (Ns 0.9% 1000 Ml*) 1,000 mls @ 75 mls/hr IV PER RATE LOS Insulin Glargine (Lantus(*)) 30 units SUBCUT QPM LOS Insulin Human Lispro (Humalog*) 0 units SUBCUT ACHS LOS; Protocol Losartan Potassium (Cozaar Tab*) 50 mg PO QPM LOS Methylprednisolone Sodium Succinate (Solu-Medrol 40 Mg) 40 mg IV Q12H [facility] Metoprolol Tartrate (Lopressor Tab*) 25 mg PO BID WITH MEALS LOS Mometasone Furoate/Formoterol Fumar (Dulera 200/5 Mdi*) 2 puff INH BID LOS Montelukast Sodium (Singulair Tab*) 10 mg PO BEDTIME LOS Pantoprazole Sodium (Protonix Tab (Nf)) 40 mg PO DAILY@0600 LOS Potassium Chloride (Klor Con Er Tab*) 20 meq PO DAILY LOS Solifenacin (Vesicare(Nf)) 10 mg PO QAM [facility] Vital Signs - 8 hr 05/06/18 05/06/18 07:26 07:41 Temperature 97.6 F Pulse Rate 94 64 Respiratory 68 16 Rate Blood Pressure 148/60 (mmHg) O2 Sat by Pulse 14 94 Oximetry Oxygen Devices in Use Now: None Appearance: NAD, sitting up on the side of the bed Ears/Nose/Mouth/Throat: Mucous Membranes Moist Respiratory: Symmetrical Chest Expansion and Respiratory Effort, - - Bilateral wheezing Cardiovascular: NL Sounds; No Murmurs; No JVD, RRR Abdominal: NL Sounds; No Tenderness; No Distention Extremities: No Edema Skin: No Rash or Ulcers Neurological: Alert and Oriented x 3, NL Muscle Strength and Tone Lines/Tubes/Other Access: Clean, Dry and Intact Peripheral IV - site benign Nutrition: Taking PO's Result Diagrams: 05/03/18 12:43 05/03/18 12:43 Microbiology and Other Data: Microbiology 05/03/18 12:43 Blood Venous Aerobic Blood Culture - Final 05/03/18 12:43 Blood Venous Blood MRSA/MSSA (PCR) - Final Staphylococcus Epidermidis Staphylococcus Hominis Gram Positive Bacilli Mrsa Negative S.aureus Negative 05/03/18 12:50 Blood Venous Aerobic Blood Culture - Preliminary 05/03/18 12:50 Blood Venous Anaerobic Blood Culture - Preliminary No Growth Day 2 No Growth Day 2 05/03/18 12:44 Blood Venous Aerobic Blood Culture - Preliminary 05/03/18 12:44 Blood Venous Anaerobic Blood Culture - Preliminary No Growth Day 2 No Growth Day 2 Assess/Plan/Problems-Billing Assessment: Mr. Simmons is an 87 yo male with PMH significant for COPD, Type II DM, HTN, CAD and h/o CVA who presented to the ER with c/o SOB and was admitted for a COPD exacerbation. - Patient Problems (1) COPD exacerbation Code(s): J44.1 - CHRONIC OBSTRUCTIVE PULMONARY DISEASE W (ACUTE) EXACERBATION SNOMED Code(s): 280313141 Comment: - Improving - Continues to have wheezing - Continue azithromycin and dulera - Change IV steroids to Prednisone (taper) (2) HTN (hypertension) Code(s): I10 - ESSENTIAL (PRIMARY) HYPERTENSION SNOMED Code(s): 18587005 Comment: - Mostly normotensive, SBP 120-150's - Continue Losartan, Lopressor, HCTZ (3) Type 2 diabetes mellitus Comment: - Glucose 120-350's - Continue glipizide, Lantus (increased to 30 units) and Lispro sliding scale (4) Hypercholesteremia Code(s): E78.0 - PURE HYPERCHOLESTEROLEMIA * DO NOT USE * SNOMED Code(s): 93946965 Comment: - Continue statin (5) CVA (cerebral vascular accident) Code(s): I63.9 - CEREBRAL INFARCTION, UNSPECIFIED SNOMED Code(s): 653209038 Comment: - History of anterior R parietal lobe CVA - Continue statin, Aspirin and Plavix (6) Hx of coronary artery disease Code(s): Z86.79 - PERSONAL HISTORY OF OTHER DISEASES OF THE CIRCULATORY SYSTEM SNOMED Code(s): 769550894 Comment: - Asymptomatic - Continue ASA, clopidogrel, BB, and statin (7) Prostate cancer Code(s): C61 - MALIGNANT NEOPLASM OF PROSTATE SNOMED Code(s): 508623347 Comment: - Personal history - Continue to follow with Urology/PCP (8) DVT prophylaxis Code(s): VEN6390 - SNOMED Code(s): 818913474 Comment: - SQ heparin (9) Full code status Code(s): Z78.9 - OTHER SPECIFIED HEALTH STATUS SNOMED Code(s): 052011275 Status and Disposition: Inpatient. Stable for discharge to home today.
[2018-05-06 15:14] VITALS: BP 125/61
--- NOTE | 2018-05-07 03:02 | DS ---
CC: Dr. Blevins * DISCHARGE SUMMARY: DATE OF ADMISSION: 05/03/18 DATE OF DISCHARGE: 05/06/18 ATTENDING PHYSICIAN: Manisha Carmona DO * (dictated by Kandy Ramirez NP) PRIMARY CARE PROVIDER: Ed Blevins MD PRIMARY DIAGNOSES: 1. Chronic obstructive pulmonary disease exacerbation. 2. Elevated troponin, at baseline. SECONDARY DIAGNOSES: 1. Type 2 diabetes mellitus. 2. Hypertension. 3. Personal history of cerebrovascular accident. 4. Personal history of gastrointestinal bleed. 5. Coronary artery disease. 6. Personal history of prostate cancer. STUDIES WHILE IN THE HOSPITAL: Chest x-ray on 05/03/18. Radiologist's impression: No active disease. DISCHARGE MEDICATIONS: New home medications: 1. Azithromycin 250 mg oral once daily for 2 days. 2. Prednisone 10 mg tablets: Take 40 mg oral daily for 3 days followed by 30 mg oral daily for 3 days, then 20 mg oral daily for 3 days, then 10 mg oral daily for 3 days, then stop. 3. Mucinex 1200 mg oral twice daily for 5 days and stop. Continued home medications: 1. Calcium carbonate 1000 mg oral daily. 2. Vitamin D 1000 units oral every morning. 3. Albuterol HFA inhaler, 2 puffs inhalation every 4 hours as needed for shortness of breath or wheeze. 4. Metoprolol 25 mg oral twice daily. 5. Singulair 10 mg oral daily at bedtime. 6. Glipizide 2.5 mg oral daily. 7. Atorvastatin 80 mg oral daily. 8. Dulera 200/5 two puffs inhalation twice daily. 9. Lantus insulin 24 units subcutaneous every morning. 10. Vitamin C 500 mg oral daily with ferrous sulfate. 11. Ferrous sulfate 65 mg oral daily. 12. Acetaminophen 500 mg oral every 6 hours as needed for pain. 13. VESIcare 10 mg oral every morning. 14. Losartan 50 mg oral every evening. 15. Hydrochlorothiazide 25 mg oral every morning. 16. Plavix 75 mg oral every morning. 17. Aspirin 81 mg oral every morning. 18. Santyl apply topical daily to right great toe wound. 19. Prevacid 30 mg oral daily. 20. Potassium chloride 20 mEq oral daily. HISTORY OF PRESENT ILLNESS/HOSPITAL COURSE: Mr. Simmons is an 87-year-old male with past medical history significant for diabetes mellitus, hypertension, history of CVA, GI bleed, coronary artery disease, and prostate cancer, who had increased shortness of breath above his baseline with increasing cough and wheezing. Any time the patient got up to move, wheezing was noted per his . He was given an albuterol, which helped for a little while, but did not sustain a response. He then used a nebulizer 3 times a day prior to admission, but he still had not improved and therefore he presented to the emergency room for further evaluation. While in the emergency room, the patient had a chest x-ray showing no acute findings. He had labs that were remarkable for mild anemia with hemoglobin of 13.2, hematocrit of 38, which was near his baseline. He had a lactic acid of 3.5, troponin of 0.06. The patient had an EKG without any acute findings, though it was difficult to interpret due to a right bundle-branch block. Hospitalists were asked to evaluate the patient for admission. During the patient's hospitalization, he had repeat lactic acid that was 5.4. Repeat troponin was 0.05. The patient's elevated troponin appeared to be at his baseline. He was started on Solu-Medrol and azithromycin. During his stay , he has green sputum that then changed to white frothy sputum. He was ambulating, but with increased shortness of breath with ambulation. This did improve to the patient's baseline, which per his is shortness of breath with exertion. The patient had hyperglycemia, suspected to be secondary to the steroid use while in the hospital. His Lantus was adjusted and his glucose is improved. The patient was afebrile during his stay. Other vital signs were unremarkable. He was initially requiring oxygen with ambulation, but today on the day of discharge, he was 93% on room air with ambulation. Mr. Simmons is stable for discharge today. Vital signs are as follows, temperature 97.6, heart rate 64, respiratory rate 16, O2 sat 94% on room air, blood pressure 148/60. DISCHARGE PLAN: Mr. Simmons will be discharged to home. Activity as tolerated. He will be on a heart-healthy, consistent-carbohydrate diet. In regards to his COPD exacerbation, he will be continued on azithromycin 250 mg oral daily for 2 more days starting today. He will also be placed on a prednisone taper taking 40 mg tomorrow for 3 days followed by 30 mg daily for 3 days, followed by 20 mg daily for 3 days, 10 mg daily for 3 days and then discontinuing. He will be continued on Mucinex or guaifenesin that he has at home for his cough. Dr. Blevins's office will call the patient, set up a followup appointment. They have been instructed to call Dr. Blevins's office if they do not hear from him in the next 1 or 2 days to schedule an appointment. The patient has been resumed on his other usual home medications. He has been asked to monitor his blood glucose and to please notify Dr. Blevins's office if his glucoses are elevated, so his Lantus can be adjusted. He has been asked to return to the emergency room for any increased shortness of breath or chest discomfort. This is a summarized report of a complex medical history and hospital stay. For further details, please see the entire medical record. TIME SPENT: Time for this discharge was approximately 50 minutes, greater than half of that was spent [id number] with the patient and his discussing discharge plans and instructions. CONDITION ON DISCHARGE: Stable. Reviewed by ROSIE SAN 05/08/18 1610 [id number] #: [id number] MARCELO
== END 2018-05-06 16:10 | disposition home or self-care (01) | DRG 191 ==
LOC: ED 12:11 → MED 14:09
PROVIDERS: ADMIT Hospitalist; ATTEND Hospitalist
DX: J44.1 Chronic obstructive pulmonary disease with (acute) exacerbation (principal); E87.2 Acidosis; R74.8 Abnormal levels of other serum enzymes; E11.65 Type 2 diabetes mellitus with hyperglycemia; I25.10 Atherosclerotic heart disease of native coronary artery without angina pectoris; I11.9 Hypertensive heart disease without heart failure; R32 Unspecified urinary incontinence; I45.10 Unspecified right bundle-branch block; E78.00 Pure hypercholesterolemia, unspecified; Z86.73 Personal history of transient ischemic attack (TIA), and cerebral infarction without residual deficits; Z85.46 Personal history of malignant neoplasm of prostate; Z79.1 Long term (current) use of non-steroidal anti-inflammatories (NSAID); Z79.02 Long term (current) use of antithrombotics/antiplatelets; Z79.82 Long term (current) use of aspirin; Z79.4 Long term (current) use of insulin; Z79.899 Other long term (current) drug therapy; Z88.8 Allergy status to other drugs, medicaments and biological substances; Z91.013 Allergy to seafood; Z83.3 Family history of diabetes mellitus; Z82.49 Family history of ischemic heart disease and other diseases of the circulatory system; Z87.891 Personal history of nicotine dependence
CPT/HCPCS: 36415; 71045; 80053; 82947; 83605; 83880; 84145; 84484; 85025; 87040; 87077; 87150; 87205; 93005; 94640; 99284; A9270-GY; J0456; J1644; J1940; J2920; J2930; J3475

== ENCOUNTER 2018-12-27 09:18 | Inpatient (IN) | payer MEDICARE ==
--- OUTSIDE RECORDS SUMMARY | 2018-12-27 09:34 | XMS REPORT | Continuity of Care Document ---
:1930 External Reference #:[id number] Author Name Darcie Quevedo Care Team Providers Name Role Phone Ed Blevins M.D. Primary Care Physician Unavailable Payers Date Identification Numbers Payment Provider Subscriber Policy Number: [id number] [employer] Number: [id number] [address] [address] PayID: [id number] SINDI Andino [id number] Advance Directives Description No Information Available Problems Date Description Provider Status Onset: 03/20/2015 Musculoskeletal disorder of the Librado Meaz M.D. Active neck Onset: 02/24/2015 Sore Throat Librado Meza M.D. Active Onset: 02/24/2015 Otalgia Librado Meza M.D. Active Onset: 12/25/2011 Sensorineural hearing loss, Librado Meza M.D. Active bilateral Onset: 12/25/2011 Perforation of tympanic membrane Librado Meza M.D. Active Onset: 06/11/2011 Impacted cerumen Librado Meza M.D. 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 Family History Date Family Member(s) Observation Comments Father Asthma Father Heart Attack Mother Diabetes Mother Heart Disease Social History Type Date Description Comments Sex Unknown Occupation Retired Tobacco Use Start: Unknown End: Unknown Former cigarette smoker, Quit YEARS 51 Years Ago, Smoked 1 Pack A Day For 8 Tobacco Use Start: Unknown Never Smoked Cigars Tobacco Use Start: Unknown Never Smoked A Pipe Smoking Status Reviewed: 12/21/18 Never Smoked A Pipe Smokeless Tobacco Never Used Smokeless Tobacco ETOH Use Currently rarely consumes alcohol Tobacco Use Start: Unknown End: Unknown Patient is a former smoker Allergies, Adverse Reactions, Alerts Date Description Reaction Status Severity Comments 05/03/2013 Lyrica swelling/sore mouth and tongue Active 05/03/2013 Captopril Active 05/31/2014 Limbrel Active 05/31/2014 TUNA Active Medications Medication Date Status Form Strength Qnty [...] mouth Darlow, Tartrate /0000 every day Ed M.DAngela Glipizide ER Active Tablets ER 2.5mg 1 [...] Vesicare Active Tablets 10mg 1 tab Darlow, 0000 daily Ed M.DAngela Dulera Active Aerosol 200-5mcg/ Darlow, 0000 Act Ed M.D. Atorvastatin Active Tablets 80mg 1 tab Darlow, Calcium /0000 daily Ed M.DAngela Klor-Con M20 Active Tablets ER 20Meq as Darlow, 0000 directed Ed GasparDAngela Lansoprazole Active Capsules DR 30mg 1 tab Darlow, /0000 daily Ed M.DAngela Losartan Active Tablets 50mg Darlow, Potassium /0000 Ed M.DAngela Lantus Solostar Active Solution 100Unit/M as Darlow, Pen-Inject L directed Ed Kerr Ferrimin 150 Active Tablets 150mg 1 tab Unknown /0000 daily Vitamin C Active Chewtabs 500mg daily Unknown / Vitamin D3 Active Chewtabs 1000Unit as Unknown Gummies Adult /0000 directed Acetaminophen Active Tablets 325mg take as Unknown /0000 directed Ciprodex 05/03 Hx Suspension 0.3-0.1% 2unit 4 drops 384.20 Librado NAngela /2012 s infected Strominge - ear bid Cirilo mcfarland 06/08 apply /2012 rebate rxbin: [id number] rxpcn: loyalty rxgrp: [id number] 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: ([id number]) id: [id number] Mometasone 05/03 Hx Cream 0.1% 45gm apply to 384.20 Librado Barlow Fur both ears Strominge - bid mix Cirilo mcfarland 03/08 with oil and drop in ear Ciprodex 11/15 Hx Suspension 0.3-0.1% 2unit 4 drops 381.4 Librado Barlow s left ear Strominge - bid Cirilo mcfarland 12/03 Ciprodex 06/17 Hx Suspension 0.3-0.1% 1unit 4 drops 381.19 Librado Barlow s right ear Strominge - bid Cirilo mcfarland 10/01 Floxin 01/31 Hx Solution 0.3% 10uni 4 gtt to ts left ear Shelly Jules, - twice A MD 02/11 day for days Lipitor 06/04 Hx Tablets 20mg - 12/03 Avapro 06/04 Hx Tablets 150mg once daily Felicity Ed Christina M.D. 03/08 Ciprodex 01/28 Hx Suspension 0.3%;0.1 1unit 4 drops 381.4 % s left ear JAngela - dg Puentes 06/05 Cirilo Ciprodex 12/27 Hx Suspension 0.3%;0.1 1unit 4 drops 382.00 % s left ear J. - bid Dhaval 06/05 Cirilo Omnicef 12/27 Hx Capsules 300mg 20cap 1 po bid 461.2 s Solo Puentes 06/05 Cirilo Captopril 00 Hx Tablets 50mg Unknown / - 06/05 Plavix Hx Tablets 75mg Unknown - 05/11 Metoprolol Hx Tablets 50mg 1/2 tab Darlow, Tartrate twice Ed - daily M.DAngela 03/08 Hydrochlorothiazi Hx Tablets 25mg once daily Felicity, de Ed Christina MArron 03/08 Aspirin Buffered Hx Caplets 325mg Unknown s - 03/08 Nitroglyceride / Hx Unknown / - 12/03 Advair Diskus Hx Inhaler 500mcg;50 mcg - 05/31 Plavix Hx 75mg Once daily Felicity Ed Christina M.D. 03/08 Benadryl 00/ Hx Unknown - 10/15 Mucinex Hx Unknown - 10/15 ? Abx Hx Unknown / - 12/03 Tessalon Hx Unknown / - 12/03 Calcium / Hx Unknown / - 12/03 Tums 00/ Hx as needed Self / - 03/08 Ventolin HFA Hx 1-2 puffs as needed Ed Christina M.D. 05/31 Ibuprofen 00/ Hx 200mg prn Self / - 05/31 Zocor Hx Tablets 20mg - 05/03 Singulair Hx Unknown - 01/19 Vitamin D 00/00 Hx once daily Self - 03/08 Vitamin C 00/00 Hx once daily Self / - 03/08 Metformin HCL 00/ Hx ?mg once daily Darbrianne Ed Christina M.D. 03/08 Simvastatin 00 Hx 20mg one po qd Darbrianne Ed Christina M.D. 03/08 Limbrel 00 Hx ?mg as Darlow directed Ed Christina M.D. 05/31 Diphenoxylate-Atr Hx 2.5-0.025 take two Darlow, opine /0000 mg tablets Ed - daily M.D. 05/31 Singulair Hx 10mg Once Daily Darlow, /0000 Ed - M.D. 03/08 Albuterol HFA Hx Aerosol 90mcg/Act 2unit 2 puffs Darlow, /0000 s every 2 to Ed - 4 hours as M.D. 03/08 /2014 Nitrostat Hx Tablets Sub 0.4mg 1 tab Mauser, /0000 sublingual Isaac - every 5 M.D. 03/08 mins x as needed for chest pain Glipizide ER Hx Tablets ER 2.5mg one tab Darlow, /0000 24HR daily Ed - M.D. 03/08 Qvar Hx Aerosol 80mcg/Act 3unit inhale 2 Darlow, /0000 s puffs by Ed - mouth 2 M.D. 03/08 times per day for asthma. use with spacer Pertussin Hx Take as Self /0000 needed for - cough and 03/08 Vitamin D Hx Capsules 2000Unit 1 by mouth Darlow, /0000 every week [place]field - M.D. 03/03 Qvar 00 Hx Aerosol 80mcg/Act inhale 2 Darlow, /0000 puffs by Ed - mouth 2 M.D. 03/03 times per day for asthma. use with spacer Simvastatin Hx Tablets 40mg 1 by mouth Darlow, /0000 every day [place]field - M.D. 03/03 Avapro Hx Tablets 150mg as Darlow, /0000 directed Ed - M.D. 03/03 Diphenoxylate-Atr 00 Hx Tablets 2.5-0.025 As Darlow, opine /0000 mg directed Ed - M.D. 03/03 Nystatin-Triamcin Hx Cream 381577-3. Apply Unknown olone /0000 1Unit/GM- Twice A - % Day 03/03 Ciprodex Hx Suspension 0.3-0.1% 4 drops in Darlow, /0000 each ear Ed - twice M.D. 04/22 Immunizations CPT Code Status Date Vaccine Lot # [id number] Given 07/11/2014 Influenza Virus Vaccine, 3 Years Of Age And Above, Intramuscular 70882 Given Unknown Prevnar 13 For Intramuscular Use 09384 Given Unknown Prevnar 13 For Intramuscular Use Vital Signs Date Vital Result Comment 12/21/2018 9:57am Weight 182.00 lb Weight 82.555 kg Height 70 inches 5'10" Height in cm's 177.8 cm BMI (Body Mass Index) 26.1 kg/m2 04/22/2018 9:24am Weight 182.00 lb Weight 82.555 kg Height 70 inches 5'10" Height in cm's 177.8 cm BMI (Body Mass Index) 26.1 kg/m2 03/24/2018 10:14am Weight 180.00 lb Weight 81.648 kg Height 70 inches 5'10" Height in cm's 177.8 cm BMI (Body Mass Index) 25.8 kg/m2 09/10/2017 10:29am BP Systolic 178 mmHg BP Diastolic 90 mmHg Heart Rate 60 /min Respiratory Rate 17 /min Weight 189.00 lb Weight 85.730 kg Height 70 inches 5'10" Height in cm's 177.8 cm BMI (Body Mass Index) 27.1 kg/m2 07/09/2017 8:23am BP Systolic 171 mmHg BP Diastolic 84 mmHg Heart Rate 67 /min Respiratory Rate 17 /min Weight 189.00 lb Weight 85.730 kg Height 70 inches 5'10" Height in cm's 177.8 cm BMI (Body Mass Index) 27.1 kg/m2 03/17/2017 8:46am BP Systolic 138 mmHg repeated after examinatioin BP Diastolic 78 mmHg repeated after examinatioin Heart Rate 58 /min 03/17/2017 8:24am BP Systolic 181 mmHg BP Diastolic 92 mmHg Heart Rate 64 /min Respiratory Rate 17 /min Weight 179.00 lb Weight 81.194 kg Height 68.50 inches 5'8.50" Height in cm's 174.0 cm BMI (Body Mass Index) 26.8 kg/m2 03/04/2017 11:03am BP Systolic 154 mmHg BP Diastolic 76 mmHg Heart Rate 71 /min Respiratory Rate 17 /min Weight 179.00 lb Weight 81.194 kg Height 68.50 inches 5'8.50" Height in cm's 174.0 cm BMI (Body Mass Index) 26.8 kg/m2 04/23/2016 11:33am BP Systolic 121 mmHg BP Diastolic 77 mmHg Heart Rate 78 /min Respiratory Rate 17 /min Weight 180.00 lb Weight 81.648 kg Height 68.50 inches 5'8.50" Height in cm's 174.0 cm BMI (Body Mass Index) 27.0 kg/m2 01/09/2016 10:46am BP Systolic 148 mmHg BP Diastolic 78 mmHg Heart Rate 67 /min Respiratory Rate 17 /min Weight 180.00 lb Weight 81.648 kg Height 68.50 inches 5'8.50" Height in cm's 174.0 cm BMI (Body Mass Index) 27.0 kg/m2 12/18/2015 9:02am BP Systolic 127 mmHg BP Diastolic 70 mmHg Heart Rate 73 /min Respiratory Rate 17 /min Weight 180.00 lb Weight 81.648 kg Height 68.50 inches 5'8.50" Height in cm's 174.0 cm BMI (Body Mass Index) 27.0 kg/m2 03/20/2015 10:58am BP Systolic 152 mmHg BP Diastolic 77 mmHg Heart Rate 58 /min Respiratory Rate 17 /min Weight 180.00 lb Weight 81.648 kg Height 68.50 inches 5'8.50" Height in cm's 174.0 cm BMI (Body Mass Index) 27.0 kg/m2 02/24/2015 9:06am BP Systolic 135 mmHg BP Diastolic 77 mmHg Heart Rate 69 /min Respiratory Rate 17 /min Weight 180.00 lb Weight 81.648 kg Height 68.50 inches 5'8.50" Height in cm's 174.0 cm BMI (Body Mass Index) 27.0 kg/m2 08/30/2014 10:32am BP Systolic 157 mmHg BP Diastolic 80 mmHg Heart Rate 64 /min Respiratory Rate 17 /min Weight 180.00 lb Weight 81.648 kg Height 68.50 inches 5'8.50" Height in cm's 174.0 cm BMI (Body Mass Index) 27.0 kg/m2 05/31/2014 9:32am BP Systolic 141 mmHg BP Diastolic 74 mmHg Heart Rate 58 /min Respiratory Rate 17 /min Weight 180.00 lb Weight 81.648 kg Height 68.50 inches 5'8.50" Height in cm's 174.0 cm BMI (Body Mass Index) 27.0 kg/m2 03/01/2014 8:17am Weight 180.00 lb Weight 81.648 kg Height 68.50 inches 5'8.50" Height in cm's 174.0 cm BMI (Body Mass Index) 27.0 kg/m2 01/19/2014 10:22am BP Systolic 145 mmHg BP Diastolic 74 mmHg Heart Rate 64 /min Respiratory Rate 16 /min Weight 180.00 lb Weight 81.648 kg Height 68.50 inches 5'8.50" Height in cm's 174.0 cm BMI (Body Mass Index) 27.0 kg/m2 09/01/2013 2:14pm BP Systolic 128 mmHg BP Diastolic 84 mmHg Heart Rate 78 /min Respiratory Rate 17 /min Weight 180.00 lb Weight 81.648 kg Height 68.50 inches 5'8.50" Height in cm's 174.0 cm BMI (Body Mass Index) 27.0 kg/m2 06/08/2013 8:33am BP Systolic 140 mmHg BP Diastolic 77 mmHg Heart Rate 60 /min Respiratory Rate 17 /min Weight 183.00 lb Weight 83.009 kg Height 68.50 inches 5'8.50" Height in cm's 174.0 cm BMI (Body Mass Index) 27.4 kg/m2 05/28/2013 10:30am BP Systolic 172 mmHg BP Diastolic 82 mmHg Heart Rate 52 /min Respiratory Rate 17 /min Weight 180.00 lb Weight 81.648 kg Height 68.50 inches 5'8.50" Height in cm's 174.0 cm BMI (Body Mass Index) 27.0 kg/m2 05/03/2013 10:23am BP Systolic 139 mmHg BP Diastolic 77 mmHg Heart Rate 76 /min Respiratory Rate 16 /min Weight 180.00 lb Weight 81.648 kg Height 68.50 inches 5'8.50" Height in cm's 174.0 cm BMI (Body Mass Index) 27.0 kg/m2 12/07/2012 8:44am BP Systolic 82 mmHg BP Diastolic 52 mmHg Heart Rate 60 /min Respiratory Rate 16 /min Weight 180.00 lb Weight 81.648 kg Height 68.50 inches 5'8.50" Height in cm's 174.0 cm BMI (Body Mass Index) 27.0 kg/m2 06/09/2012 8:34am BP Systolic 152 mmHg BP Diastolic 79 mmHg Heart Rate 63 /min Respiratory Rate 16 /min Weight 180.00 lb Weight 81.648 kg Height 68.50 inches 5'8.50" Height in cm's 174.0 cm BMI (Body Mass Index) 27.0 kg/m2 02/25/2012 1:37pm BP Systolic 137 mmHg BP Diastolic 84 mmHg Heart Rate 64 /min Respiratory Rate 16 /min Weight 180.00 lb Weight 81.648 kg Height 68.5 inches 5'8.50" Height in cm's 174.0 cm BMI (Body Mass Index) 27.0 kg/m2 12/25/2011 1:53pm BP Systolic 161 mmHg BP Diastolic 78 mmHg Heart Rate 65 /min Respiratory Rate 16 /min Weight 180.00 lb Weight 81.648 kg Height 68.5 inches 5'8.50" Height in cm's 174.0 cm BMI (Body Mass Index) 27.0 kg/m2 12/03/2011 10:17am BP Systolic 151 mmHg BP Diastolic 116 mmHg Heart Rate 57 /min Respiratory Rate 16 /min Weight 180.00 lb Weight 81.648 kg Height 68.5 inches 5'8.50" Height in cm's 174.0 cm BMI (Body Mass Index) 27.0 kg/m2 10/01/2011 8:35am BP Systolic 154 mmHg BP Diastolic 71 mmHg Heart Rate 58 /min Respiratory Rate 16 /min Weight 182.00 lb Weight 82.555 kg Height 68.5 inches 5'8.50" Height in cm's 174.0 cm BMI (Body Mass Index) 27.3 kg/m2 12/12/2008 11:01am BP Systolic 135 mmHg BP Diastolic 75 mmHg Heart Rate 78 /min Respiratory Rate 16 /min 05/11/2008 3:21pm BP Systolic 110 mmHg BP Diastolic 75 mmHg Heart Rate 68 /min Respiratory Rate 16 /min 04/11/2008 8:28am BP Systolic 141 mmHg BP Diastolic 72 mmHg Heart Rate 70 /min Respiratory Rate 20 /min 03/03/2008 11:39am BP Systolic 149 mmHg BP Diastolic 87 mmHg Heart Rate 58 /min Respiratory Rate 18 /min 02/24/2008 2:45pm BP Systolic 132 mmHg BP Diastolic 70 mmHg Heart Rate 64 /min Respiratory Rate 24 /min 12/11/2007 9:13am BP Systolic 127 mmHg BP Diastolic 74 mmHg Heart Rate 59 /min Respiratory Rate 16 /min 12/12/2006 9:00am BP Systolic 111 mmHg BP Diastolic 74 mmHg Heart Rate 76 /min Respiratory Rate 16 /min 06/05/2005 3:16pm BP Systolic 161 mmHg BP Diastolic 91 mmHg Heart Rate 56 /min Respiratory Rate 16 /min 06/05/2005 10:19am BP Systolic 120 mmHg BP Diastolic 77 mmHg Heart Rate 57 /min Respiratory Rate 16 /min 01/28/2005 9:12am BP Systolic 126 mmHg BP Diastolic 77 mmHg Heart Rate 62 /min Respiratory Rate 16 /min 12/17/2004 1:00pm BP Systolic 131 mmHg BP Diastolic 81 mmHg Heart Rate 59 /min Respiratory Rate 14 /min 11/19/2004 10:37am BP Systolic 137 mmHg BP Diastolic 90 mmHg Heart Rate 71 /min Respiratory Rate 16 /min Results Test Date Facility Test Result H/L Range Note Laboratory test [facility] Surgical SEE RESULT 1 finding 6 c/o [facility] [place] [address] [phone] Laboratory test [facility] BUN 17 mg/dL 6 -24 finding 1 c/[place] [address] [phone] Creatinine [facility] Creatinine 1.20 mg/dL 0.50-1.40 1 c/[place] [address] [phone] One Over Creatinine 0.80 eGFR Non- 58.6 > 60 eGFR 75.3 > 60 2 1 SEE RESULT BELOW Name: SHAR SIMMONS : [address]: Librado Meza MD Acct: [id number] Unit: [id number] AGE: 85 Location: [facility] Re01/09/16 SEX: M Status: REG REF SPEC: [id number] MAYO: 01/09/[address] [facility] [address]: Librado Meza MD REQ: [id number] RECD: 01/09/16 STATUS: SOUT _ ORDERED: LEVEL [...] performed at Main Lab DEPARTMENT OF PATHOLOGY, [address] [place] [address] Andrew Metz M.D. Director [facility] # [id number] 2 Because ethnic data is not always [...] Kidney failure <15 (or dialysis) Procedures Date Code Description Status 03/24/2018 60608 Tympanometry Completed 03/24/2018 58131 Comprehensive Audiogram Completed 03/24/2018 01140 Binocular Microscopy Completed 09/10/2017 78401 Binocular Microscopy Completed 07/09/2017 61048 Removal Wax Impaction Completed 03/17/2017 55671 Binocular Microscopy Completed 03/04/2017 87588 Removal Wax Impaction Completed 04/23/2016 11724 Removal Wax Impaction Completed 01/09/2016 96554 Exc Chip Les 0.6-1.0CM Face/Ears/Nose/Lip Completed 12/18/2015 73143 Binocular Microscopy Completed 03/20/2015 22731 Fiberoptic Laryngoscopy Completed 08/30/2014 97592 Removal Wax Impaction Completed 05/31/2014 01563 Removal Wax Impaction Completed 03/01/2014 64352 Binocular Microscopy Completed 03/01/2014 14828 Comprehensive Audiogram Completed 03/01/2014 39947 Tympanometry Completed 01/19/2014 09043 Removal Wax Impaction Completed 09/01/2013 25001 Binocular Microscopy Completed 06/08/2013 25342 Binocular Microscopy Completed 05/28/2013 57094 Binocular Microscopy Completed 05/03/2013 17001 Binocular Microscopy Completed 12/07/2012 97062 Removal Wax Impaction Completed 06/09/2012 44060 Binocular Microscopy Completed 12/25/2011 08226 Binocular Microscopy Completed 12/03/2011 96442 Binocular Microscopy Completed 11/15/2011 22688 Binocular Microscopy Completed 10/01/2011 56203 Binocular Microscopy Completed 06/26/2011 95390 Tympanostomy W/Tube Local Or Topical Anes. Completed 06/17/2011 77205 Binocular Microscopy Completed 06/17/2011 14115 Tympanometry Completed 06/11/2011 63261 Removal Wax Impaction Completed 11/01/2010 95637 Removal Wax Impaction Completed 12/11/2009 83183 Binocular Microscopy Completed 06/14/2008 64020 Comprehensive Audiogram Completed 06/14/2008 28128 Comprehensive Audiogram Completed 05/13/2008 36809 Tympanostomy W/Tube, Under General Anes. Completed 03/02/2008 31962 Tympanostomy W/Tube, Under General Anes. Completed 02/24/2008 33970 Tympanostomy W/Tube Local Or Topical Anes. Completed 06/13/2006 74027 Comprehensive Audiogram Completed 05/21/2006 03035 Tympanostomy W/Tube Local Or Topical Anes. Completed 11/04/2005 91160 Tympanometry Completed 11/04/2005 20197 Comprehensive Audiogram Completed 09/12/2005 77474 Tympanostomy W/Tube Local Or Topical Anes. Completed 09/11/2005 17276 Tympanometry Completed 09/11/2005 19907 Comprehensive Audiogram Completed 06/05/2005 13848 Comprehensive Audiogram Completed 02/13/2005 75203 Comprehensive Audiogram Completed 01/28/2005 76721 Tympanostomy W/Tube, Under General Anes. Completed 01/28/2005 14192 Tympanostomy W/Tube Local Or Topical Anes. Completed 01/10/2005 87049 Tympanometry Completed 01/10/2005 68678 Comprehensive Audiogram Completed 12/17/2004 49747 Tympanometry Completed 12/17/2004 46601 Comprehensive Audiogram Completed 12/17/2004 19441 Myringotomy No Tube Unilateral hs Completed 11/19/2004 11607 Tympanometry Completed 11/19/2004 97089 Comprehensive Audiogram Completed Encounters Type Date Location Provider Dx Diagnosis Office Visit 04/22/2018 [place] Librado Barlow H72.93 Unspecified 9:15a 10/06/07 Cirilo Meza perforation of tympanic membrane, bilateral H90.3 Sensorineural hearing loss, bilateral Office Visit 03/24/2018 [place] Librado Barlow H61.23 Impacted 10:15a 10/06/07 Cirilo Meza cerumen, bilateral H72.93 Unspecified perforation of tympanic membrane, bilateral H66.40 Suppurative otitis media, unspecified, unspecified ear H90.3 Sensorineural hearing loss, bilateral Office Visit 09/10/2017 [place] Librado Barlow H61.23 Impacted 10:45a 10/06/07 Cirilo Meza, bilateral H72.93 Unspecified perforation of tympanic membrane, bilateral H90.6 Mixed conductive and sensorineural hearing loss, bilateral Office Visit 03/17/2017 [place] Librado Barlow H72.93 Unspecified 8:30a 10/06/07 Cirilo Meza perforation of tympanic membrane, bilateral Office Visit 12/18/2015 [place] Librado Barlow H61.23 Impacted 9:15a 10/06/07 Cirilo Meza, bilateral H72.93 Unspecified perforation of tympanic membrane, bilateral D48.5 Neoplasm of uncertain behavior of skin Office 02/24/2015 [place] Librado Barlow 384.20 Perforation Of Tympanic Visit 9:15a 10/06/07 Susana Membrane/Unspecified M.D. 388.70 Otalgia/Unspecified 462-2 Sore Throat Office 03/01/2014 [place] Librado Barlow 384.20 Perforation Of Tympanic Visit 10:15a 10/06/07 Susana Membrane/Unspecified M.D. 389.18 Hearing Loss, Sensorineural/Combined Types Office 09/01/2013 [place] Librado Barlow 384.20 Perforation Of Tympanic Visit 2:15p 10/06/07 Susana, Membrane/Unspecified M.D. Office 06/08/2013 [place] Librado Barlow 384.20 Perforation Of Tympanic Visit 8:30a 10/06/07 Susana, Membrane/Unspecified M.D. 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 389.18 Hearing Loss, Sensorineural/Combined Types Office Visit 02/25/2012 1:45p [place],[facility] Librado Barlow 381.19 Otitis Media 10/06/07 Cirilo Meza Chronic Serous Other 384.20 Perforation Of Tympanic Membrane/Unspecified Office Visit 12/25/2011 2:00p [place] Librado Barlow 381.19 Otitis Media 10/06/07 Cirilo Meza Chronic Serous Other 384.20 Perforation Of Tympanic Membrane/Unspecified 389.18 Hearing Loss, Sensorineural/Combined Types Office Visit 12/03/2011 10:00a [place],[facility] Librado Barlow 381.19 Otitis Media 10/06/07 Cirilo Meza Chronic Serous Other 389.18 Hearing Loss, Sensorineural/Combined Types 384.20 Perforation Of Tympanic Membrane/Unspecified 872.02 Laceration, Auditory Canal 401.9 High Blood Pressure Or Hypertension/Unspecified Office Visit 11/15/2011 11:00a [place],After 10/06/07 Reuben 381.4 Otitis Media, Katharina AUTOMATED ACCESS SYSTEMS TECHNICIAN Serous Not Specified as Acute Or Chronic Office Visit 10/01/2011 8:45a [place],[facility] 10/06/07 Librado Barlow 381.19 Otitis Media Strominger, Chronic Serous M.D. Other Office Visit 06/17/2011 2:15p [place],After 10/06/07 Reuben 381.19 Otitis Media Katharina AUTOMATED ACCESS SYSTEMS TECHNICIAN Chronic Serous Other Office Visit 12/03/2010 8:45a [place],[facility] 10/06/07 Librado Barlow 482.9 Pneumonia Due Susana, To Bacterial M.D. 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 Office Visit 10/15/2010 [place],[facility] Librado Bran2.9 Pneumonia Due 11:00a 10/06/07 Cirilo Meza To Bacterial Infection Unspec Office Visit 12/11/2009 [place],[facility] Librado Valles19 Otitis Media 2:00p 10/06/07 Cirilo Meza Chronic Serous Other Office Visit 12/12/2008 [place],[facility] Librado Valles19 Otitis Media 11:15a 10/06/07 Cirlio Meza Chronic Serous Other Office Visit 06/14/2008 [place],[facility] Librado Barlow 381.19 Otitis Media 9:30a 10/06/07 Cirilo Meza Chronic Serous Other 389.08 Hearing Loss, Conductive/Combined Types 389.18 Hearing Loss, Sensorineural/Combined Types Office Visit 05/11/2008 [place],[facility] Librado Barlow 381.19 Otitis Media 3:30p 10/06/07 Cirilo Meza Chronic Serous Other Office Visit 04/11/2008 [place],[facility] Librado Barlow 381.19 Otitis Media 8:30a 10/06/07 Cirilo Meza Chronic Serous Other Office Visit 03/03/2008 [place],[facility] Librado Barlow 388.69 [place], 11:30a 10/06/07 Cirilo Meza Ear Or Other Otorrhea 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 Office Visit 12/11/2007 9:15a [place],[facility] 10/06/07 Isaac Bravo 381.4 Otitis MediaJorge A MD Serous Not Specified as Acute Or Chronic 462-2 Sore Throat Office Visit 06/12/2007 9:30a [place],[facility] 10/06/07 Isaac Bravo 381.4 Otitis MediaJorge A MD Serous Not Specified as Acute Or Chronic Office Visit 12/12/2006 9:00a [place],[facility] 10/06/07 Isaac Bravo 381.4 Otitis MediaJorge A MD Serous Not Specified as Acute Or Chronic Office Visit 06/13/2006 9:45a [place],[facility] 10/06/07 Isaac Bravo 381.4 Otitis MediaJorge A MD Serous Not Specified as Acute Or Chronic 389.10 Hearing Loss, Sensorineural/Unspecified Office Visit 05/05/2006 9:00a [place],[facility] 10/06/07 Isaac Alexandra.4 Otitis MediaJorge A MD Serous Not Specified as Acute Or Chronic Office Visit 02/11/2006 3:20p [place],[facility] 10/06/07 Librado Barlow 381.4 Otitis MediaSusana Serous Not M.D. Specified as Acute Or Chronic Office Visit 02/11/2006 3:45p [place],[facility] 10/06/07 Librado Alexandra.4 Otitis MediaSusana, Serous Not M.D. Specified as Acute Or Chronic Office Visit 11/04/2005 9:30a [place],[facility] 10/06/07 Isaac Bravo 381.4 Otitis Media, MD Jorge A Serous Not Specified as Acute Or Chronic 389.10 Hearing Loss, Sensorineural/Unspecified Office Visit 09/11/2005 9:45a [place],[facility] 10/06/07 Isaac Bravo 381.4 Otitis Media, MD Jorge A Serous Not Specified as Acute Or Chronic 389.03 Hearing Loss, Conductive/Middle Ear Office 06/05/2005 [place],[facility] Isaac Bravo 389.10 Hearing Loss, Visit 10:30a 10/06/07 MD Jorge A Sensorineural/Unspecified 389.03 Hearing Loss, Conductive/Middle Ear 384.20 Perforation Of Tympanic Membrane/Unspecified Office Visit 02/13/2005 9:00a [place],After 10/06/07 Jose Banda 381.4 Otitis Media, Cirilo Puentes Serous Not Specified as Acute Or Chronic 389.03 Hearing Loss, Conductive/Middle Ear Office Visit 01/10/2005 5:00p [place],After Jose Banda 382.00 Otitis Media , 10/06/07 Cirilo Puentes 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
[2018-12-27 10:00] LABS: Influenza B Molecular POSITIVE (Negative)
[2018-12-27 10:19] LABS: ABS Basophils 0 10^3/ul (0-0.2); ABS Eosinophils 0 10^3/ul (0-0.6); ABS Lymphocytes 1.3 10^3/ul (1.0-4.8); ABS Monocytes 0.8 10^3/ul (0-0.8); ABS Neutrophils 4.6 10^3/ul (1.5-7.7); ABS Nucleated RBC 0 10^3/ul; Eosinophil % 0.1 %; Hematocrit 39 % (36-46); Hemoglobin 13.1 g/dL (14.0-18.0); Lymphocyte % 19.4 %; Mean Corpuscular HGB Conc 34 g/dL (31-36); Mean Corpuscular Hemoglobin 30 pg (27-31); Mean Corpuscular Volume 88 fL (80-94); Mean Platelet Volume 9.4 fL (7.4-10.4); Nucleated Red Blood Cells % 0; Platelet Count 129 10^3/uL (150-450); Red Cell Distribution Width 15 % (10.5-15); White Blood Count 6.7 10^3/uL (3.5-10.8)
[2018-12-27 10:28] LABS: INR 0.99 (0.77-1.02)
[2018-12-27 10:38] LABS: Albumin 3.4 g/dL (3.2-5.2); Albumin/Globulin Ratio 1.5 (1-3); BUN/Creatinine Ratio 18.8 (8-20); C Reactive Protein 51.13 mg/L (<8.01); Calcium 8.8 mg/dL (8.6-10.3); EGFR African American 56.3 (>60); EGFR Non-African American 46.5 (>60); Globulin 2.3 g/dL (2-4); Magnesium 1.5 mg/dL (1.9-2.7); Potassium 3.6 mmol/L (3.5-5.0); Total Bilirubin 0.8 mg/dL (0.2-1.0); Total Protein 5.7 g/dL (6.4-8.9)
[2018-12-27 10:41] LABS: Troponin I 0.06 ng/mL (<0.04)
[2018-12-27] MEDS ORDERED: NS 0.9% 1000 ML** 1,000 ML IV ONE ×2 (10:43→11:12)
[2018-12-27] MEDS ORDERED: Insulin REGULAR(*) 1 UNITS UNIT IV PUSH ONE (10:59)
[2018-12-27] MEDS ORDERED: Potassium Chlor TAB* 20 MEQ TAB.ER PO ONE (11:13)
[2018-12-27] MEDS ORDERED: Albuterol/Ipratropium NEB.SOL* Albuterol 2.5 MG/Ipratropium 0.5 MG 3 ML INH ONE (11:27)
[2018-12-27 12:55] LABS: Troponin I 0.06 ng/mL (<0.04)
[2018-12-27] MEDS ORDERED: Piperacillin/Tazobac ADVAN(*) 3.375 GM in NS 0.9% 100 ML* 100 ML IVPB ONE (13:15)
[2018-12-27] MEDS ORDERED: Dextrose 50% Syringe 50 ML* 25 GM/50 ML SYRINGE IV PUSH PRN (13:15)
[2018-12-27] MEDS ORDERED: Ondansetron INJ* 2 MG/ML VIAL IV PRN (13:15)
[2018-12-27] MEDS ORDERED: Benzonatate CAP* 100 MG PO PRN (13:15)
[2018-12-27] MEDS ORDERED: Albuterol 2.5 MG/3 ML NEB.SOL* (0.083%) INH PRN (13:15)
[2018-12-27] MEDS ORDERED: Insulin LISPRO* 1 UNITS UNIT SUBCUT ONE (13:15)
[2018-12-27] MEDS ORDERED: Magnesium Sulfate IV* 3 GM in NS 0.9% 100 ML* 100 ML IVPB ONE (13:57)
[2018-12-27] MEDS ORDERED: Zosyn per Pharmacy* NOTE FOLLOW UP SCH (14:00)
--- NOTE | 2018-12-27 14:01 | ED ---
Influenza-Like Illness - HPI Summary HPI Summary: Patient is an 88-year-old male with a history of COPD, CVA 2 years ago and CAD presenting to the ED with multiple falls, dysphagia, cough, congestion and confusion which has been worsening. Family is at bedside and are concerned for aspiration. Patient at this time is nonverbal, but acting more appropriate per family. Family states patient has been afebrile, no sweats or chills. Denies any urinary symptoms or back pain. Denies any abdominal pain. Patient continues to eat and drink, however his having more difficulty with thin liquids. - History of Current Complaint Chief Complaint: EDShortnessOfBreath Time Seen by Provider: 12/27/18 09:27 Hx Obtained From: Patient, Family/Locomotive [employer]ian Hx From Patient Unobtainable Due To: Altered Mental Status Onset/Duration: Sudden Onset Severity: Moderate Associated Signs & Symptoms: F/C, Myalgia, Cough, Sore Throat, Nasal Congestion Related Hx: Possible Flu/Infectious Exposure - Risk Factors Influenza Risk Factors: Negative - Allergy/Home Medications Allergies/Adverse Reactions: Allergies Allergy/AdvReac Type Severity Reaction Status Date / Time baicalin [From Limbrel] Allergy Severe Swelling Verified 12/27/18 09:26 Of Face,Lips,& Throat catechin [From Limbrel] Allergy Severe Swelling Verified 12/27/18 09:26 Of Face,Lips,& Throat haloperidol Allergy Severe See Comment Verified 12/27/18 09:26 pregabalin Allergy See Comment Verified 12/27/18 09:26 tuna oil Allergy Swelling Verified 12/27/18 09:26 Of Face,Lips,& Throat captopril AdvReac Coughing Verified 12/27/18 09:26 [place] Allergy Swelling Uncoded 12/27/18 09:26 Of Face,Lips,& Throat Home Medications: Home Medications Cholecalciferol (Vitamin D3) [Vitamin D3] 1,000 unit PO DAILY 12/27/18 [History Confirmed 12/27/18] Mometasone/Formoter 200/5 MDI* [Dulera 200/5 MDI*] 2 puff INH BID 12/27/18 [ History Confirmed 12/27/18] PMH/Surg Hx/FS Hx/Imm Hx Previously Healthy: No Endocrine/Hematology History: Reports: Hx Anticoagulant Therapy, Hx Blood Transfusions, Hx Diabetes, Hx Unexplained Bleeding Denies: Hx Anemia Cardiovascular History: Reports: Hx Angina, Hx Coronary Artery Disease, Hx Hypercholesterolemia, Hx Hypertension, Hx Myocardial Infarction, 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 Denies: Hx Congestive Heart Failure, Hx Pacemaker/ICD Respiratory History: Reports: Hx Asthma, Hx Chronic Obstructive Pulmonary Disease (COPD), Hx Pneumonia, Other Respiratory Problems/Disorders - PNEUMONIA GI History: Reports: Hx Gastrointestinal Bleed - 10/2016, Other GI Disorders - Esophagus ulcers, GI bleed History: Reports: Hx Kidney Stones, Other Problems/Disorders - Prostate CA Denies: Hx Renal Disease Musculoskeletal History: Reports: Hx Arthritis - HIPS/ HANDS Sensory History: Reports: Hx Cataracts, Hx Contacts or Glasses, Hx Deafness, Hx Hearing Aid, Hx Hearing Problem, Other Sensory Impairments Denies: Hx Glaucoma, Hx Legally Blind, Hx Macular Degeneration, Hx Vision Problem Opthamlomology History: Reports: Hx Cataracts, Hx Contacts or Glasses, Other Sensory Impairments Denies: Hx Glaucoma, Hx Legally Blind, Hx Macular Degeneration, Hx Vision Problem Neurological History: Reports: Hx Dementia - Mild Psychiatric History: Denies: Hx Anxiety, Hx Panic Disorder - Cancer History Cancer Type, Location and Year: prostate Hx Chemotherapy: Yes - 2006 Hx Radiation Therapy: Yes Hx Palliative Cancer Treatment: No - Surgical History Surgery Procedure, Year, and Place: YOUNG CHILD TONSILLECTOMY [facility]. 1972 RUPTURED APPENDIX [facility]. 2003 2 CARDIAC STENTS STRONG. 2005 PROSTATE [facility]. 2008 BILATERAL TUBES IN EARS [facility] Hx Anesthesia Reactions: No - Immunization History Hx Pertussis Vaccination: No Immunizations Up to Date: Yes Infectious Disease History: No Infectious Disease History: Denies: Hx Clostridium Difficile, Hx Hepatitis, Hx Human Immunodeficiency Virus (HIV), Hx of Known/Suspected MRSA, Hx Shingles, Hx Tuberculosis, Hx Known/ Suspected VRE, Hx Known/Suspected VRSA, Traveled Outside the [place] in Last 30 Days - Family History Known Family History: Positive: Cardiac Disease - Social History Occupation: Unemployed Lives: With Family Alcohol Use: None Hx Substance Use: No Substance Use Type: Reports: None Hx Tobacco Use: Yes Smoking Status (MU): Former Smoker Type: Cigarettes Have You Smoked in the Last Year: No Review of Systems Constitutional: Negative Negative: Fever, Chills, Fatigue, Skin Diaphoresis Positive: Sore Throat - difficulty swallowing Negative: Palpitations, Chest Pain Positive: Shortness Of Breath, Cough Positive: Nausea. Negative: Vomiting, Diarrhea Genitourinary: Negative Positive: no symptoms reported, see HPI Negative: Arthralgia, Myalgia Skin: Negative Neurological: Other - confusion/multiple falls Negative: Headache, Weakness, Numbness Psychological: Normal All Other Systems Reviewed And Are Negative: Yes Physical Exam Triage Information Reviewed: Yes Vital Signs On Initial Exam: Initial Vitals Temp Pulse Resp BP Pulse Ox 97.2 F 75 20 128/83 94 12/27/18 09:22 12/27/18 09:22 12/27/18 09:22 12/27/18 09:22 12/27/18 09:22 Vital Signs Reviewed: Yes Appearance: Positive: Well-Appearing, Well-Nourished Skin: Positive: Warm, Skin Color Reflects Adequate Perfusion Head/Face: Positive: Normal Head/Face Inspection Eyes: Positive: EOMI, SARI, Conjunctiva Clear Neck: Positive: Supple, No Lymphadenopathy Respiratory/Lung Sounds: Positive: Rhonchi, Wheezes, Other - crackles bilaterally Cardiovascular: Negative: Tachycardia, Leg Edema Left, Leg Edema Right Abdomen Description: Positive: Nontender, No Organomegaly, Soft Musculoskeletal: Positive: Strength/ROM Intact Neurological: Positive: Other - patient alert to person Psychiatric: Positive: Affect/Mood Appropriate AVPU Assessment: Alert Diagnostics - Vital Signs Vital Signs Temp Pulse Resp BP Pulse Ox 12/27/18 13:05 35 160/78 12/27/18 13:00 24 12/27/18 12:35 70 24 174/72 92 12/27/18 12:05 28 142/108 12/27/18 12:01 85 16 97 12/27/18 12:00 62 20 96 12/27/18 11:35 62 22 148/71 12/27/18 11:05 67 26 137/73 90 12/27/18 11:00 63 22 93 12/27/18 10:35 66 25 141/69 90 12/27/18 10:16 91 12/27/18 10:05 58 22 140/65 92 12/27/18 10:00 68 23 91 12/27/18 09:36 68 93 12/27/18 09:35 74 126/71 92 12/27/18 09:22 97.2 F 75 20 128/83 94 - Laboratory Lab Results: Lab Results 12/27/18 12/27/18 12/27/18 Range/Units 09:52 09:56 10:01 WBC 6.7 (3.5-10.8) 10^3/uL RBC 4.40 (4.18-5.48) 10^6 /uL Hgb 13.1 L (14.0-18.0) g/dL Hct 39 (36-46) % MCV 88 (80-94) fL MCH 30 (27-31) pg MCHC 34 (31-36) g/dL RDW 15 (10.5-15) % Plt Count 129 L (150-450) 10^3/uL MPV 9.4 (7.4-10.4) fL Neut % (Auto) 68.7 % Lymph % (Auto) 19.4 % [place] % (Auto) 11.2 % Eos % (Auto) 0.1 % Baso % (Auto) 0.6 % Absolute Neuts (auto) 4.6 (1.5-7.7) 10^3/ul Absolute Lymphs (auto) 1.3 (1.0-4.8) 10^3/ul Absolute Monos (auto) 0.8 (0-0.8) 10^3/ul Absolute Eos (auto) 0 (0-0.6) 10^3/ul Absolute Basos (auto) 0 (0-0.2) 10^3/ul Absolute Nucleated RBC 0 10^3/ul Nucleated RBC % 0 INR (Anticoag Therapy) (0.77-1.02) APTT (26.0-36.3) seconds Sodium (135-145) mmol/L Potassium (3.5-5.0) mmol/L Chloride (101-111) mmol/L Carbon Dioxide (22-32) mmol/L Anion Gap (2-11) mmol/L BUN (6-24) mg/dL Creatinine (0.67-1.17) mg/dL Est GFR ( Amer) (>60) Est GFR (Non-Af Amer) (>60) BUN/Creatinine Ratio (8-20) Glucose (70-100) mg/dL Lactic Acid (0.5-2.0) mmol/L Calcium (8.6-10.3) mg/dL Magnesium (1.9-2.7) mg/dL Total Bilirubin (0.2-1.0) mg/dL AST (13-39) U/L ALT (7-52) U/L Alkaline Phosphatase (34-104) U/L Troponin I (<0.04) ng/mL C-Reactive Protein (<8.01) mg/L B-Natriuretic Peptide (<=100) pg/mL Total Protein (6.4-8.9) g/dL Albumin (3.2-5.2) g/dL Globulin (2-4) g/dL Albumin/Globulin Ratio (1-3) Lipase (11.0-82.0) U/L Influenza B (Rapid) Positive A (Negative) Group A Strep Rapid Negative (Negative) 12/27/18 12/27/18 12/27/18 Range/Units 10:01 10:01 10:01 WBC (3.5-10.8) 10^3/uL RBC (4.18-5.48) 10^6 /uL Hgb (14.0-18.0) g/dL Hct (36-46) % MCV (80-94) fL MCH (27-31) pg MCHC (31-36) g/dL RDW (10.5-15) % Plt Count (150-450) 10^3/uL MPV (7.4-10.4) fL Neut % (Auto) % Lymph % (Auto) % [place] % (Auto) % Eos % (Auto) % Baso % (Auto) % Absolute Neuts (auto) (1.5-7.7) 10^3/ul Absolute Lymphs (auto) (1.0-4.8) 10^3/ul Absolute Monos (auto) (0-0.8) 10^3/ul Absolute Eos (auto) (0-0.6) 10^3/ul Absolute Basos (auto) (0-0.2) 10^3/ul Absolute Nucleated RBC 10^3/ul Nucleated RBC % INR (Anticoag Therapy) 0.99 (0.77-1.02) APTT 27.0 (26.0-36.3) seconds Sodium 135 (135-145) mmol/L Potassium 3.6 (3.5-5.0) mmol/L Chloride 103 (101-111) mmol/L Carbon Dioxide 21 L (22-32) mmol/L Anion Gap 11 (2-11) mmol/L BUN 27 H (6-24) mg/dL Creatinine 1.44 H (0.67-1.17) mg/dL Est GFR ( Amer) 56.3 (>60) Est GFR (Non-Af Amer) 46.5 (>60) BUN/Creatinine Ratio 18.8 (8-20) Glucose 359 H (70-100) mg/dL Lactic Acid 3.7 H* (0.5-2.0) mmol/L Calcium 8.8 (8.6-10.3) mg/dL Magnesium 1.5 L (1.9-2.7) mg/dL Total Bilirubin 0.80 (0.2-1.0) mg/dL AST 35 (13-39) U/L ALT 30 (7-52) U/L Alkaline Phosphatase 69 (34-104) U/L Troponin I 0.06 H* (<0.04) ng/mL C-Reactive Protein 51.13 H (<8.01) mg/L B-Natriuretic Peptide (<=100) pg/mL Total Protein 5.7 L (6.4-8.9) g/dL Albumin 3.4 (3.2-5.2) g/dL Globulin 2.3 (2-4) g/dL Albumin/Globulin Ratio 1.5 (1-3) Lipase 13 (11.0-82.0) U/L Influenza B (Rapid) (Negative) Group A Strep Rapid (Negative) 12/27/18 12/27/18 12/27/18 Range/Units 10:01 12:08 12:08 WBC (3.5-10.8) 10^3/uL RBC (4.18-5.48) 10^6 /uL Hgb (14.0-18.0) g/dL Hct (36-46) % MCV (80-94) fL MCH (27-31) pg MCHC (31-36) g/dL RDW (10.5-15) % Plt Count (150-450) 10^3/uL MPV (7.4-10.4) fL Neut % (Auto) % Lymph % (Auto) % [place] % (Auto) % Eos % (Auto) % Baso % (Auto) % Absolute Neuts (auto) (1.5-7.7) 10^3/ul Absolute Lymphs (auto) (1.0-4.8) 10^3/ul Absolute Monos (auto) (0-0.8) 10^3/ul Absolute Eos (auto) (0-0.6) 10^3/ul Absolute Basos (auto) (0-0.2) 10^3/ul Absolute Nucleated RBC 10^3/ul Nucleated RBC % INR (Anticoag Therapy) (0.77-1.02) APTT (26.0-36.3) seconds Sodium (135-145) mmol/L Potassium (3.5-5.0) mmol/L Chloride (101-111) mmol/L Carbon Dioxide (22-32) mmol/L Anion Gap (2-11) mmol/L BUN (6-24) mg/dL Creatinine (0.67-1.17) mg/dL Est GFR ( Amer) (>60) Est GFR (Non-Af Amer) (>60) BUN/Creatinine Ratio (8-20) Glucose 322 H (70-100) mg/dL Lactic Acid 2.5 H* (0.5-2.0) mmol/L Calcium (8.6-10.3) mg/dL Magnesium (1.9-2.7) mg/dL Total Bilirubin (0.2-1.0) mg/dL AST (13-39) U/L ALT (7-52) U/L Alkaline Phosphatase (34-104) U/L Troponin I (<0.04) ng/mL C-Reactive Protein (<8.01) mg/L B-Natriuretic Peptide 68 (<=100) pg/mL Total Protein (6.4-8.9) g/dL Albumin (3.2-5.2) g/dL Globulin (2-4) g/dL Albumin/Globulin Ratio (1-3) Lipase (11.0-82.0) U/L Influenza B (Rapid) (Negative) Group A Strep Rapid (Negative) 12/27/18 12/27/18 Range/Units 12:09 12:09 WBC (3.5-10.8) 10^3/uL RBC (4.18-5.48) 10^6 /uL Hgb (14.0-18.0) g/dL Hct (36-46) % MCV (80-94) fL MCH (27-31) pg MCHC (31-36) g/dL RDW (10.5-15) % Plt Count (150-450) 10^3/uL MPV (7.4-10.4) fL Neut % (Auto) % Lymph % (Auto) % [place] % (Auto) % Eos % (Auto) % Baso % (Auto) % Absolute Neuts (auto) (1.5-7.7) 10^3/ul Absolute Lymphs (auto) (1.0-4.8) 10^3/ul Absolute Monos (auto) (0-0.8) 10^3/ul Absolute Eos (auto) (0-0.6) 10^3/ul Absolute Basos (auto) (0-0.2) 10^3/ul Absolute Nucleated RBC 10^3/ul Nucleated RBC % INR (Anticoag Therapy) (0.77-1.02) APTT (26.0-36.3) seconds Sodium (135-145) mmol/L Potassium (3.5-5.0) mmol/L Chloride (101-111) mmol/L Carbon Dioxide (22-32) mmol/L Anion Gap (2-11) mmol/L BUN (6-24) mg/dL Creatinine (0.67-1.17) mg/dL Est GFR ( Amer) (>60) Est GFR (Non-Af Amer) (>60) BUN/Creatinine Ratio (8-20) Glucose (70-100) mg/dL Lactic Acid (0.5-2.0) mmol/L Calcium (8.6-10.3) mg/dL Magnesium (1.9-2.7) mg/dL Total Bilirubin (0.2-1.0) mg/dL AST (13-39) U/L ALT (7-52) U/L Alkaline Phosphatase (34-104) U/L Troponin I 0.06 H* (<0.04) ng/mL C-Reactive Protein (<8.01) mg/L B-Natriuretic Peptide 74 (<=100) pg/mL Total Protein (6.4-8.9) g/dL Albumin (3.2-5.2) g/dL Globulin (2-4) g/dL Albumin/Globulin Ratio (1-3) Lipase (11.0-82.0) U/L Influenza B (Rapid) (Negative) Group A Strep Rapid (Negative) Result Diagrams: 12/27/18 10:01 12/27/18 10:01 Lab Statement: Any lab studies that have been ordered have been reviewed, and results considered in the medical decision making process. Flu Symptom Course/Dx - Course Course Of Treatment: During the course treatment, the patient is evaluated for multiple falls, dysphagia, confusion. Patient is afebrile at 97.2, 75, respirations 20, 94% on room air, 128/83. He does not meet septic criteria. Influenza swab obtained and is positive. Chest x-ray shows no acute cardiopulmonary findings. Labs obtained which showed normal white count, however an elevated troponin of 0.06. This is baseline for patient. Elevated glucose level of 359 and a lactic of 3.7. He is given 2 L fluids and BNP checked. BNP at 74. Discussed case with Dr. Collins. Recommended for observation for dysphagia, multiple falls, confusion, influenza and generalized weakness. For his elevated glucose, he is given .1mg/kg insulin regular IV and KCL 40mg PO. Glucose remains elevated at 322. - Diagnoses Differential Diagnosis/HQI/PQRI: Positive: Bronchitis, Influenza, Other - Dysphagia Provider Diagnoses: Influenza B, Dysphagia - Physician Notifications Discussed Care Of Patient With: Nallely Collins Instructed by Provider To: Admit As Inpatient Critical Care Time: 30-74 min Discharge - Sign-Out/Discharge Documenting (check all that apply): Patient Departure Patient Received Moderate/Deep Sedation with Procedure: No - Discharge Plan Condition: Fair Disposition: ADMITTED TO [facility] Referrals: Ed Blevins MD [Primary Care Provider] - - Billing Disposition and Condition Condition: FAIR Disposition: Admitted to [facility]
[2018-12-27] MEDS: Lactated Ringers 1000 ML Bag* 1,000 ML IV SCH (15:32)
[2018-12-27 15:38] LABS: Troponin I 0.05 ng/mL (<0.04)
[2018-12-27] MEDS: Albuterol/Ipratropium NEB.SOL* Albuterol 2.5 MG/Ipratropium 0.5 MG 3 ML INH SCH ×3 (15:46→23:26)
[2018-12-27] MEDS: predniSONE TAB* 20 MG PO SCH (17:04)
[2018-12-27] MEDS: Heparin VIAL(*) 5000 UNITS/ML VIAL (FIVE THOUSAND) SUBCUT SCH ×2 (17:04→21:09)
[2018-12-27] MEDS: Atorvastatin* 80 MG TAB PO SCH (17:05)
[2018-12-27] MEDS: Metoprolol Tartrate TAB* 25 MG PO SCH (17:05)
[2018-12-27] MEDS: Insulin GLARGINE(*) 1 UNITS UNIT SUBCUT SCH (17:10)
[2018-12-27] MEDS: Insulin LISPRO* 1 UNITS UNIT SUBCUT SCH ×2 (17:10→21:02)
[2018-12-27] MEDS: DOXYcycline IV* 100 MG in NS 0.9% 250 ML* 250 ML IVPB SCH (17:11)
[2018-12-27] MEDS ORDERED: cefTRIAXone(*) 1 GM in NS 0.9% 50 ML* 50 ML IVPB SCH (20:00)
[2018-12-27] MEDS: Mometasone/Formoter 200/5 MDI INH SCH (20:10)
--- NOTE | 2018-12-27 20:13 | HP ---
CC: Dr. Ed Blevins * ADMISSION HISTORY AND PHYSICAL: DATE OF ADMISSION: 12/27/18 PRIMARY CARE PROVIDER: Dr. Ed Blevins. MY ATTENDING WHILE IN THE HOSPITAL: Dr. Nallely Collins.* (DICTATED BY IRIS SHEIKH) CHIEF COMPLAINT: Cough and altered mental status x2 days. HISTORY OF PRESENT ILLNESS: Mr. Simmons is an 88-year-old male with past medical history significant for hypertension, history of CVA, coronary artery disease with 2 MIs, COPD and diabetes mellitus type 2, who presents to the emergency department because of relatively sudden onset cough and shortness of breath that began on 12/25/18. The patient had no sick contacts and otherwise been doing well prior to this; however, on Friday, he began to cough frequently producing dark- colored green-yellow sputum. The patient also became altered, not following directions. The patient's oral intake decreased and he was noted to have difficulty swallowing particularly fluids, but he was doing relatively well with food. The patient has a baseline tremor, but has not been having any bone shaking chills or documented or subjective fevers. The patient has been producing urine, but only in small amounts. The patient had wheezing, shortness of breath with exertion and had a fall on Friday and a fall on Friday. The patient's fall on Friday, he was unable to get up from and it is believed that he hit his head. The patient has not had any diarrhea, dysuria. The patient has chest pain when he coughs, but no other chest pain and nothing compared this to when he previously had an SD. The patient's and daughter are accompanying him to the emergency department and have been providing most of his symptoms. The patient's blood sugars have also been above 300 since Friday and he has been receiving extra insulin without significant improvement in his blood sugars. In the emergency department, the patient was found to have an elevated lactic acid, slightly elevated troponin consistent with the patient's previous readings and an elevated creatinine. The patient has grossly abnormal lung exam and was flu B positive. For these findings, we were asked to evaluate the patient for admission to the hospital. 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 PAST SURGICAL HISTORY: Appendectomy, tonsillectomy, prostatectomy, circumcision in 2014, stent placement in 2003 and 2013. MEDICATIONS: 1. Calcium carbonate 1000 mg p.o. daily. 2. Ventolin 2 puffs inhalation q.4 hours as needed. 3. Metoprolol tartrate 25 mg p.o. b.i.d. 4. Montelukast 10 mg p.o. at bedtime. 5. Glipizide 2.5 mg p.o. daily. 6. Lipitor 80 mg p.o. nightly. 7. Insulin glargine 26 units q.p.m. 8. Vitamin C 500 mg p.o. daily. 9. Ferrous sulfate 325 mg p.o. daily. 10. Tylenol 500 mg p.o. q.6 hours as needed. 11. VESIcare 10 mg p.o. daily. 12. Losartan 50 mg p.o. q.p.m. 13. Hydrochlorothiazide 25 mg p.o. q.a.m. 14. Clopidogrel 75 mg p.o. q.a.m. 15. Aspirin 81 mg p.o. daily. 16. Lansoprazole 30 mg p.o. daily. 17. Potassium chloride 20 mEq p.o. daily. 18. Vitamin D 1000 units p.o. daily. 19. Dulera 200/5 two puffs inhalation b.i.d. ALLERGIES: PREGABALIN, TUNA FISH, HALOPERIDOL, CAPTOPRIL, BAICALIN AND CATECHIN respectively. FAMILY HISTORY: The patient's mother had diabetes mellitus and of coronary artery disease. The patient's father also of heart disease. The patient does not know his siblings' past medical history. SOCIAL HISTORY: The patient smoked for approximately 10 years and quit almost 60 years ago. The patient drinks rare alcohol. Denies illicit drug use. 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 The patient is . The patient's surrogate decision maker will be his , Jelena Simmons or his daughter, Carli Hackett. REVIEW OF SYSTEMS: A 14-point review of systems was reviewed and revealed recent presumed weight loss by the patient, but no other significant findings except as above in the HPI. PHYSICAL EXAMINATION GENERAL: The patient is an 88-year-old male, who appears stated age and sitting comfortably in bed, in no acute distress. VITAL SIGNS: At the time of evaluation, temperature 97.2, pulse rate 77, respiratory rate 22, oxygen saturation 92% on room air, blood pressure 141/69. HEENT: Head: Normocephalic, atraumatic. Sclerae anicteric. No conjunctival injection. Nasal mucosa moist. Oral mucosa moist. No pharyngeal erythema, discharge, or exudate. NECK: Supple, nontender. No lymphadenopathy. No carotid bruits auscultated. No JVD. RESPIRATORY: Diminished throughout, severe expiratory wheezing in all lung hdz with rhonchi heard primarily in the bilateral lower lungs. No rales. Unable to perform test for consolidation. CARDIAC: Regular rate and rhythm. No clicks, murmurs, gallops, or rubs. Pulses are 2+ in the bilateral dorsalis pedis, posterior tibialis, and radial areas. ABDOMEN: Soft, nontender, nondistended. Bowel sounds present and normoactive in all 4 quadrants. No hepato-splenomegaly. No abdominal bruits auscultated. No hepatojugular reflux. GENITOURINARY: No suprapubic or CVA tenderness. NEURO: Cranial nerves II through XII intact. No focal deficits. Alert and oriented x3. PSYCHIATRIC: Pleasant and cooperative. SKIN: Clean, dry, and intact. No rash. DIAGNOSTIC STUDIES/LAB DATA: White blood cell count 6.7, hemoglobin 13.1, platelet count 129. INR of 0.99, APTT 27.0. Sodium 135, potassium 3.6, chloride 103, carbon dioxide 29, anion gap 11, BUN 27, creatinine 1.44, glucose 259. Lactic acid 3.7, repeat 2.5. Calcium 8.8, magnesium 1.5. Bilirubin 0.8, AST 35, ALT 30, alkaline phosphatase 69. Troponin I of 0.06 x2. CRP 51.13. BNP 68, repeat 74. Protein 5.7, albumin 3.4, globulin 2.3. Lipase 13. Influenza B positive. Group A strep negative. Studies: Electrocardiogram shows right bundle branch block, poor quality study due to tremor. No obvious ST segment elevation. No hypertrophy or enlargement. No abnormal R-wave progression. Rate of 71, QTc of 478, normal axis. Compared to previous exam, there are no significant changes. Chest x-ray read as no acute cardiopulmonary disease. Brain CT read as no acute intracranial abnormality, age-appropriate atrophy. ASSESSMENT AND PLAN: Impression: Mr. Simmons is an 88-year-old male with past medical history significant for chronic obstructive pulmonary disease, diabetes mellitus type 2, hypertension, history of cerebrovascular accident and coronary artery disease with myocardial infarction x2, who presents to the emergency department with shortness of breath, cough and altered mental status x2 days and was found to be flu B positive. The patient will be admitted to the hospital for treatment for flu and chronic obstructive pulmonary disease exacerbation as well as further evaluation of his altered mental status and dysphagia. 1. Flu B positive, chronic obstructive pulmonary disease exacerbation, possible bacterial superinfection. The patient is flu B positive. The patient has significant wheezing and rhonchi on exam. The patient will be admitted to the hospital and started on Tamiflu, scheduled inhalers, prednisone. The patient has an elevated lactic acid and will be fluid resuscitated. This is likely mainly due to the patient's dehydration and not related to sepsis. The patient received 2 L while in the emergency department and will have lactated Ringer's at 100 mL an hour for 2 more liters. The patient has an elevated creatinine again consistent with dehydration from poor oral intake and not from sepsis. The patient has a productive cough, markedly abnormal lung exam. The patient will be started on doxycycline for his chronic obstructive pulmonary disease exacerbation and Zosyn will be added on for possible aspiration related to his dysphagia. The patient will have a repeat chest x-ray in the morning. If the patient has no infiltrate on this exam, we would recommend consider discontinuing Zosyn. Doxycycline will cover possible staph, bacterial superinfection. The patient will have aggressive pulmonary toileting. The patient is not needing supplementary oxygen at this time. Continue the patient' s home inhalers. It should be considered adding on Spiriva upon discharge due to the fact that this is the patient's second admission for chronic obstructive pulmonary disease exacerbation in the last 6 months. 2. Dysphagia. The patient has new altered mental status and dysphagia. These are likely in the setting of acute illness. The patient had a negative CT of his brain and has no other neurologic deficits. The patient will have a swallow eval. The patient tolerated nectar thickened liquids while in the emergency department. These will be continued until formal swallow eval is undertaken. The patient upon his cerebrovascular accident 2 years ago had cranial nerve abnormalities. This may represent recrudescence of prior neurologic dysfunction from a cerebrovascular accident and may improve with treatment of his acute illness. If the patient has persistent dysphagia, an MRI of the brain may be considered to rule out acute cerebrovascular accident. The patient is already on dual antiplatelet therapy and is not in the window for any acute intervention. 3. Diabetes mellitus type 2. The patient is markedly hyperglycemic likely due to increase in insulin resistance due to acute illness. We will continue the patient's home dose of Lantus, which will be up titrated as needed. The patient has been given an additional 10 units of insulin at this time due to poor response to 8 units in the emergency department. The patient will have fingersticks a.c. and h.s. with sliding scale insulin. The patient's glipizide will be held. 4. Acute on chronic kidney failure. The patient has a baseline creatinine around 1.1, which has increased to 1.44, so it will be rechecked in the morning after fluid resuscitation. The patient's Tamiflu will be renally dosed. Avoid nephrotoxic medications. Continue lactated Ringer's due to acute kidney injury and effects of minor acidosis. 5. History of coronary artery disease with myocardial infarction x2. The patient has an elevated troponin, but has no ischemic changes on his EKG. Third troponin will be drawn. Continue the patient's dual antiplatelet therapy and statins. Outpatient stress test may be considered. 6. History of prostate cancer. The patient has been urinating infrequently likely related to dehydration. The patient will be monitored closely for signs of urinary retention. The patient's VESIcare will be held as this may also be contributing to his altered mental status. 7. DVT prophylaxis: The patient will have heparin subcu. The patient is a high risk. 8. FEN: The patient will have a heart-healthy diet without caffeine and nectar thickened liquids as above. The patient will have lactated Ringer's at 100 mL an hour for 2 bags as above. 9. Disposition: The patient is admitted to observation to the hospital. 10. Code status: The patient would like to be a full code. TIME SPENT: Approximately 60 minutes was spent on the admission of this patient , 30 of which was spent [id number] with the patient obtaining history and physical and discussing treatment plan. This plan was discussed with my attending, Dr. Nallely Collins, and she is in agreement. IRIS SHEIKH [id number]/[facility] #: [id number] MARCELO
[2018-12-27] MEDS ORDERED: guaiFENesin ER TAB 600 MG PO SCH ×2 (21:00)
[2018-12-27] MEDS: Oseltamivir SUSP 30 MG dose* 30 MG/5 ML ORAL.SYRIN PO SCH (21:01)
[2018-12-27] MEDS: Montelukast Sodium TAB* 10 MG PO SCH (21:09)
[2018-12-27] MEDS ORDERED: guaiFENesin LIQ* 100 MG/5 ML UDC PO SCH (22:00)
[2018-12-27] MEDS: guaiFENesin LIQ* 100 MG/5 ML UDC PO SCH (22:03)
[2018-12-28] MEDS: Lactated Ringers 1000 ML Bag* 1,000 ML IV SCH (01:38)
[2018-12-28] MEDS: Albuterol/Ipratropium NEB.SOL* Albuterol 2.5 MG/Ipratropium 0.5 MG 3 ML INH SCH (03:04)
[2018-12-28] MEDS: DOXYcycline IV* 100 MG in NS 0.9% 250 ML* 250 ML IVPB SCH (03:56)
[2018-12-28] MEDS: guaiFENesin LIQ* 100 MG/5 ML UDC PO SCH ×4 (03:56→22:25)
[2018-12-28] MEDS: Heparin VIAL(*) 5000 UNITS/ML VIAL (FIVE THOUSAND) SUBCUT SCH ×3 (05:39→22:27)
[2018-12-28 06:06] LABS: ABS Basophils 0 10^3/ul (0-0.2); ABS Eosinophils 0 10^3/ul (0-0.6); ABS Lymphocytes 0.4 10^3/ul (1.0-4.8); ABS Monocytes 0.2 10^3/ul (0-0.8); ABS Neutrophils 4.5 10^3/ul (1.5-7.7); ABS Nucleated RBC 0 10^3/ul; Eosinophil % 0 %; Hematocrit 36 % (36-46); Hemoglobin 12.1 g/dL (14.0-18.0); Lymphocyte % 7.1 %; Mean Corpuscular HGB Conc 34 g/dL (31-36); Mean Corpuscular Hemoglobin 30 pg (27-31); Mean Corpuscular Volume 88 fL (80-94); Mean Platelet Volume 9.2 fL (7.4-10.4); Nucleated Red Blood Cells % 0.1; Platelet Count 125 10^3/uL (150-450); Red Blood Count 4.08 10^6 /uL (4.18-5.48); Red Cell Distribution Width 15 % (10.5-15); White Blood Count 5.1 10^3/uL (3.5-10.8)
[2018-12-28 06:22] LABS: BUN/Creatinine Ratio 18.9 (8-20); Calcium 8.1 mg/dL (8.6-10.3); EGFR Non-African American 62.8 (>60); Magnesium 1.4 mg/dL (1.9-2.7); Potassium 3.8 mmol/L (3.5-5.0)
[2018-12-28] MEDS: Mometasone/Formoter 200/5 MDI INH SCH ×2 (07:57→19:16)
[2018-12-28] MEDS: Aspirin EC TAB* 81 MG TAB.EC PO SCH (07:58)
[2018-12-28] MEDS: Calcium Carbonate CHEW TAB* 500 MG (TUMS) PO SCH (08:02)
[2018-12-28] MEDS: Potassium Chlor TAB* 20 MEQ TAB.ER PO SCH (08:03)
[2018-12-28] MEDS: Metoprolol Tartrate TAB* 25 MG PO SCH ×2 (08:07→17:12)
[2018-12-28] MEDS: Ascorbic Acid TAB* 500 MG PO SCH (08:09)
[2018-12-28] MEDS ORDERED: Magnesium Sulfate 2 GM IV* 2 GM/50 ML BAG IVPB ONE (08:10)
[2018-12-28] MEDS: Clopidogrel TAB* 75 MG PO SCH (08:10)
[2018-12-28] MEDS: Ferrous Sulfate TAB* 325 MG PO SCH (08:12)
[2018-12-28] MEDS: Oseltamivir SUSP 30 MG dose* 30 MG/5 ML ORAL.SYRIN PO SCH ×2 (08:13→22:26)
--- NOTE | 2018-12-28 08:13 | PN ---
Subjective Date of Service: 12/28/18 Interval History: patient reports he is feeling better today, continues to have a harsh cough and wheezing. Denies SOB/CP. No fever or chills. Denies body aches. Daughter at bedside who states he is a little "perkier" today. He reports he ate breakfast. No abd pain/N/D. Feels a little unsteady on his feet. Objective Active Medications: Acetaminophen (Tylenol Tab*) 650 mg PO Q6H PRN PRN Reason: FEVER/PAIN Albuterol (Ventolin 2.5 Mg/3 Ml Neb.Shayla*) 2.5 mg INH Q2H PRN PRN Reason: SOB/WHEEZING Ascorbic Acid (Vitamin C Tab*) 500 mg PO DAILY [facility] Aspirin (Aspirin Ec Tab*) 81 mg PO QAM [facility] Atorvastatin Calcium (Lipitor*) 80 mg PO 1700 [facility] [place] Last Admin: 12/27/18 17:05 Dose: 80 mg Benzonatate (Tessalon Cap*) 100 mg PO BID PRN PRN Reason: COUGH Calcium Carbonate (Tums*) 1,000 mg PO DAILY [facility] [place] Clopidogrel Bisulfate (Plavix Tab*) 75 mg PO QAM [facility] [place] Dextrose (D50w Syringe 50 Ml*) 12.5 gm IV PUSH .FOR FS < 60 - SS PRN PRN Reason: FS < 60 Ferrous Sulfate (Ferrous Sulfate Tab*) 325 mg PO DAILY [facility] [place] Guaifenesin (Robitussin*) 5 ml PO Q6H [facility] Last Admin: 12/28/18 03:56 Dose: 5 ml Heparin Sodium (Porcine) (Heparin Vial(*)) 5,000 units SUBCUT Q8HR [facility] [place] Last Admin: 12/28/18 05:39 Dose: 5,000 units Doxycycline Hyclate 100 mg/ (Sodium Chloride) 250 mls @ 250 mls/hr IVPB Q12H [facility] [place] Last Admin: 12/28/18 03:56 Dose: 250 mls/hr Lactated Ringer's (Lactated Ringers 1000 Ml Bag*) 1,000 mls @ 100 mls/hr IV PER RATE [facility] [place] Stop: 12/28/18 23:59 Last Admin: 12/28/18 01:38 Dose: 100 mls/hr Ceftriaxone Sodium 1 gm/ (Sodium Chloride) 50 mls @ 200 mls/hr IVPB Q24H [facility] [place] Last Admin: 12/27/18 21:00 Dose: 200 mls/hr Magnesium Sulfate (Magnesium Sulfate 2 Gm Iv*) 2 gm in 50 mls @ 50 mls/hr IVPB ONCE ONE Stop: 12/28/18 09:09 Insulin Glargine (Lantus(*)) 26 units SUBCUT QPM [facility] [place] Last Admin: 12/27/18 17:10 Dose: 26 units Insulin Human Lispro (Humalog*) 0 units SUBCUT ACHS [facility]; Protocol Last Admin: 12/27/18 21:02 Dose: 10 units Metoprolol Tartrate (Lopressor Tab*) 25 mg PO BID WITH MEALS [facility] [place] Last Admin: 12/27/18 17:05 Dose: 25 mg Mometasone Furoate/Formoterol Fumar (Dulera 200/5 Mdi*) 2 puff INH BID [facility] [place] Last Admin: 12/28/18 07:57 Dose: 2 puff Montelukast Sodium (Singulair Tab*) 10 mg PO BEDTIME [facility] [place] Last Admin: 12/27/18 21:09 Dose: 10 mg Ondansetron HCl (Zofran Inj*) 4 mg IV Q6H PRN PRN Reason: NAUSEA Oseltamivir Phosphate (Tamiflu Susp 30 Mg Dose*) 30 mg PO BID [facility] [place] Stop: 01/01/19 09:01 Last Admin: 12/27/18 21:01 Dose: 30 mg Pantoprazole Sodium (Protonix Tab*) 40 mg PO DAILY [facility]; Protocol Potassium Chloride (Klor Con Er Tab*) 20 meq PO DAILY [facility] [place] Prednisone (Deltasone Tab*) 60 mg PO DAILY [facility] [place] Last Admin: 12/27/18 17:04 Dose: 60 mg Vital Signs - 8 hr 12/28/18 12/28/18 12/28/18 00:55 03:05 07:26 Temperature 96.8 F Pulse Rate 77 77 66 Respiratory 20 14 Rate Blood Pressure 151/68 (mmHg) O2 Sat by Pulse 95 99 96 Oximetry 12/28/18 12/28/18 07:46 08:05 Temperature Pulse Rate 68 Respiratory 14 14 Rate Blood Pressure (mmHg) O2 Sat by Pulse 96 Oximetry Oxygen Devices in Use Now: None Appearance: elderly male sitting up in bed watching TV visiting with his amy A+O x3 in NAD, [place] Eyes: PERRLA Ears/Nose/Mouth/Throat: NL Teeth, Lips, Gums, Mucous Membranes Moist Respiratory: Symmetrical Chest Expansion and Respiratory Effort, - - diminished. exp wheezing upper lobes b/l. resp easy. Cardiovascular: NL Sounds; No Murmurs; No JVD, RRR, No Edema Abdominal: NL Sounds; No Tenderness; No Distention, - - obese Extremities: No Edema, No Clubbing, Cyanosis Skin: No Rash or Ulcers, No Nodules or Sclerosis Neurological: Alert and Oriented x 3, NL Sensation, NL Muscle Strength and Tone Lines/Tubes/Other Access: Clean, Dry and Intact Peripheral IV Nutrition: Taking PO's Result Diagrams: 12/28/18 05:45 12/28/18 05:45 Additional Lab and Data: Lab Results Microbiology and Other Data: Microbiology 12/27/18 18:10 Gram Stain - Final Sputum Expectorated 12/27/18 13:46 Legionella Urinary Antigen - Final Urine Negative Legionella Antigen Streptococcus pneumoniae Ag Screen - Final Positive S. Pneumo Antigen 12/27/18 09:40 Group A Streptococcus Rapid Screen - Final Throat Specimen received for Rapid Strep A Molecular testing 12/27/18 09:40 Influenza Types A,B Antigen - Final Nasal Specimen received for Influenza A/B Molecular testing Assess/Plan/Problems-Billing Assessment: 87 yo male with a PMH of COPD, DM2, HTN, hx of CVA, CAD x2 who presented to the ER on 12/27 with c/o sob, cough, AMS x 2 days found to have Flu B and PNA - Patient Problems (1) Influenza B Comment: - continue Tamiflu 5 day course - supportive treatment (2) Pneumonia Comment: - positive S. Pneumonia - - DC doxy - increase ceftriaxone 2gms IV Q24 hrs (3) COPD exacerbation Comment: - continue oral prednisone - nebs, inhalers - flutter valve (4) Type 2 diabetes mellitus Comment: - Glucose 200's - FSBG ACHS - hold home glipizide, - continue home Lantus - continue Lispro sliding scale (5) History of hypertension Comment: - stable. - Hold HCTZ. continue BB (6) Hx of coronary artery disease Comment: - Asymptomatic - Continue ASA, clopidogrel, BB, and statin (7) DVT prophylaxis Comment: - SQ heparin (8) Full code status Status and Disposition: inpatient with Influenza B and s. pneumonia.
[2018-12-28] MEDS: Pantoprazole TAB * 40 MG TAB PO SCH (08:14)
[2018-12-28] MEDS: predniSONE TAB* 20 MG PO SCH (08:15)
[2018-12-28] MEDS: Insulin LISPRO* 1 UNITS UNIT SUBCUT SCH ×4 (08:17→21:55)
[2018-12-28] MEDS: Acetaminophen TAB* 325 MG PO PRN (11:46)
[2018-12-28 15:19] LABS: Vitamin D Total 25(OH) 42.2 ng/mL (20-50)
[2018-12-28] MEDS: Insulin GLARGINE(*) 1 UNITS UNIT SUBCUT SCH (17:06)
[2018-12-28] MEDS: Losartan TAB* 25 MG PO SCH (17:12)
[2018-12-28] MEDS: Atorvastatin* 80 MG TAB PO SCH (17:12)
[2018-12-28] MEDS ORDERED: cefTRIAXone(*) 2 GM in NS 0.9% 100 ML* 100 ML IVPB SCH (20:00)
[2018-12-28] MEDS: Montelukast Sodium TAB* 10 MG PO SCH (22:22)
[2018-12-29] MEDS ORDERED: Haloperidol INJ IV/IM* 5 MG/ML AMP IV SLOW PU PRN (05:06)
[2018-12-29] MEDS ORDERED: risperiDONE TAB* 1 MG PO ONE (05:12)
[2018-12-29] MEDS: Acetaminophen TAB* 325 MG PO PRN ×2 (05:38→10:38)
[2018-12-29] MEDS: guaiFENesin LIQ* 100 MG/5 ML UDC PO SCH ×4 (05:58→20:39)
[2018-12-29] MEDS: Heparin VIAL(*) 5000 UNITS/ML VIAL (FIVE THOUSAND) SUBCUT SCH ×3 (05:58→20:32)
[2018-12-29 06:50] LABS: ABS Basophils 0 10^3/ul (0-0.2); ABS Eosinophils 0 10^3/ul (0-0.6); ABS Lymphocytes 0.8 10^3/ul (1.0-4.8); ABS Monocytes 0.6 10^3/ul (0-0.8); ABS Neutrophils 5.9 10^3/ul (1.5-7.7); ABS Nucleated RBC 0 10^3/ul; Eosinophil % 0 %; Hematocrit 37 % (36-46); Hemoglobin 12.6 g/dL (14.0-18.0); Lymphocyte % 11.4 %; Mean Corpuscular HGB Conc 34 g/dL (31-36); Mean Corpuscular Hemoglobin 30 pg (27-31); Mean Corpuscular Volume 88 fL (80-94); Mean Platelet Volume 9.3 fL (7.4-10.4); Nucleated Red Blood Cells % 0.1; Platelet Count 145 10^3/uL (150-450); Red Cell Distribution Width 15 % (10.5-15); White Blood Count 7.4 10^3/uL (3.5-10.8)
[2018-12-29 07:02] LABS: BUN/Creatinine Ratio 21.8 (8-20); Calcium 8.5 mg/dL (8.6-10.3); EGFR African American 76.8 (>60); EGFR Non-African American 63.5 (>60); Magnesium 1.9 mg/dL (1.9-2.7); Potassium 4.2 mmol/L (3.5-5.0)
[2018-12-29] MEDS: Mometasone/Formoter 200/5 MDI INH SCH ×2 (07:41→19:37)
[2018-12-29] MEDS: predniSONE TAB* 20 MG PO SCH ×3 (08:06→12:49)
[2018-12-29] MEDS: Ascorbic Acid TAB* 500 MG PO SCH (08:06)
[2018-12-29] MEDS: Ferrous Sulfate TAB* 325 MG PO SCH (08:06)
[2018-12-29] MEDS: Aspirin EC TAB* 81 MG TAB.EC PO SCH (08:06)
[2018-12-29] MEDS: Pantoprazole TAB * 40 MG TAB PO SCH (08:06)
[2018-12-29] MEDS: Potassium Chlor TAB* 20 MEQ TAB.ER PO SCH (08:06)
[2018-12-29] MEDS: Metoprolol Tartrate TAB* 25 MG PO SCH ×2 (08:07→17:27)
[2018-12-29] MEDS: Clopidogrel TAB* 75 MG PO SCH (08:07)
[2018-12-29] MEDS: Calcium Carbonate CHEW TAB* 500 MG (TUMS) PO SCH (08:07)
[2018-12-29] MEDS: Insulin LISPRO* 1 UNITS UNIT SUBCUT SCH ×4 (08:07→20:31)
[2018-12-29] MEDS: Oseltamivir SUSP 30 MG dose* 30 MG/5 ML ORAL.SYRIN PO SCH ×2 (08:09→20:32)
--- NOTE | 2018-12-29 11:56 | PN ---
Subjective Date of Service: 12/29/18 Interval History: Patient reports he feels a little better today. continues to have a cough, some sputum production. denies SOB/CP. per he has been complaining of left foot pain since a fall he had last week. She has noted some mild swelling. Has been ambulating with walker - she feels he is a little unsteady but overall doing well no n/v/d. Objective Active Medications: Acetaminophen (Tylenol Tab*) 650 mg PO Q6H PRN PRN Reason: FEVER/PAIN Last Admin: 12/29/18 10:38 Dose: 650 mg Albuterol (Ventolin 2.5 Mg/3 Ml Neb.Shayla*) 2.5 mg INH Q2H PRN PRN Reason: SOB/WHEEZING Ascorbic Acid (Vitamin C Tab*) 500 mg PO DAILY [facility] Last Admin: 12/29/18 08:06 Dose: 500 mg Aspirin (Aspirin Ec Tab*) 81 mg PO QAM [facility] Last Admin: 12/29/18 08:06 Dose: 81 mg Atorvastatin Calcium (Lipitor*) 80 mg PO 1700 [facility] Last Admin: 12/28/18 17:12 Dose: 80 mg Benzonatate (Tessalon Cap*) 100 mg PO BID PRN PRN Reason: COUGH Calcium Carbonate (Tums*) 1,000 mg PO DAILY [facility] Last Admin: 12/29/18 08:07 Dose: 1,000 mg Clopidogrel Bisulfate (Plavix Tab*) 75 mg PO QAM [facility] Last Admin: 12/29/18 08:07 Dose: 75 mg Dextrose (D50w Syringe 50 Ml*) 12.5 gm IV PUSH .FOR FS < 60 - SS PRN PRN Reason: FS < 60 Ferrous Sulfate (Ferrous Sulfate Tab*) 325 mg PO DAILY [facility] Last Admin: 12/29/18 08:06 Dose: 325 mg Guaifenesin (Robitussin*) 5 ml PO Q6H [facility] Last Admin: 12/29/18 08:05 Dose: 5 ml Heparin Sodium (Porcine) (Heparin Vial(*)) 5,000 units SUBCUT Q8HR [facility] Last Admin: 12/29/18 05:58 Dose: 5,000 units Ceftriaxone Sodium 2 gm/ (Sodium Chloride) 100 mls @ 200 mls/hr IVPB Q24H [facility] Last Admin: 12/28/18 20:17 Dose: 200 mls/hr Insulin Glargine (Lantus(*)) 26 units SUBCUT QPM [facility] Last Admin: 12/28/18 17:06 Dose: 26 units Insulin Human Lispro (Humalog*) 0 units SUBCUT ACHS [facility]; Protocol Last Admin: 12/29/18 08:07 Dose: 1 units Losartan Potassium (Cozaar Tab*) 50 mg PO QPM [facility] Last Admin: 12/28/18 17:12 Dose: 50 mg Metoprolol Tartrate (Lopressor Tab*) 25 mg PO BID WITH MEALS [facility] Last Admin: 12/29/18 08:07 Dose: 25 mg Mometasone Furoate/Formoterol Fumar (Dulera 200/5 Mdi*) 2 puff INH BID [facility] Last Admin: 12/29/18 07:41 Dose: 2 puff Montelukast Sodium (Singulair Tab*) 10 mg PO BEDTIME [facility] Last Admin: 12/28/18 22:22 Dose: 10 mg Ondansetron HCl (Zofran Inj*) 4 mg IV Q6H PRN PRN Reason: NAUSEA Oseltamivir Phosphate (Tamiflu Susp 30 Mg Dose*) 30 mg PO BID [facility] Stop: 01/01/19 09:01 Last Admin: 12/29/18 08:09 Dose: 30 mg Pantoprazole Sodium (Protonix Tab*) 40 mg PO DAILY [facility]; Protocol Last Admin: 12/29/18 08:06 Dose: 40 mg Potassium Chloride (Klor Con Er Tab*) 20 meq PO DAILY [facility] Last Admin: 12/29/18 08:06 Dose: 20 meq Prednisone (Deltasone Tab*) 40 mg PO DAILY [facility] Last Admin: 12/29/18 08:09 Dose: 40 mg Vital Signs - 8 hr 12/29/18 08:00 Respiratory 18 Rate Oxygen Devices in Use Now: None Appearance: eldelry male A+Ox3 - [place] in NAD Eyes: No Scleral Icterus, PERRLA Ears/Nose/Mouth/Throat: NL Teeth, Lips, Gums, Mucous Membranes Moist Neck: NL Appearance and Movements; NL JVP Respiratory: Symmetrical Chest Expansion and Respiratory Effort, - - course rhonchi bilaterally - improvement from yesterday - increased aeration Cardiovascular: NL Sounds; No Murmurs; No JVD, RRR Abdominal: NL Sounds; No Tenderness; No Distention Extremities: No Clubbing, Cyanosis, - - left foot mildy swollen with light noted area of ecchymosis - tender to touch - no deformity noted Neurological: Alert and Oriented x 3, NL Sensation Lines/Tubes/Other Access: Clean, Dry and Intact Peripheral IV Nutrition: Taking PO's Result Diagrams: 12/29/18 06:17 12/29/18 06:14 Additional Lab and Data: Lab Results Microbiology and Other Data: Microbiology 12/27/18 18:10 Gram Stain - Final Sputum Expectorated 12/27/18 13:46 Legionella Urinary Antigen - Final Urine Negative Legionella Antigen Streptococcus pneumoniae Ag Screen - Final Positive S. Pneumo Antigen 12/27/18 09:40 Group A Streptococcus Rapid Screen - Final Throat Specimen received for Rapid Strep A Molecular testing 12/27/18 09:40 Influenza Types A,B Antigen - Final Nasal Specimen received for Influenza A/B Molecular testing Assess/Plan/Problems-Billing Assessment: 87 yo male with a PMH of COPD, DM2, HTN, hx of CVA, CAD x2 who presented to the ER on 12/27 with c/o sob, cough, AMS x 2 days found to have Flu B and PNA - Patient Problems (1) Influenza B Comment: - continue Tamiflu 5 day course - supportive treatment (2) Pneumonia Comment: - improving - positive S. Pneumonia - sputum cx growing pseudomonas - DC Ceftriaxone and start cefepime 2gm q12 - blood cx pending (3) COPD exacerbation Comment: - continue oral prednisone - nebs, inhalers - flutter valve (4) Type 2 diabetes mellitus Comment: - FSBG ACHS - hold home glipizide, - continue home Lantus - continue Lispro sliding scale (5) History of hypertension Comment: - stable. - Hold HCTZ. continue BB, losartan - Hydralyzine prn (6) Hx of coronary artery disease Comment: - Asymptomatic - Continue ASA, clopidogrel, BB, and statin (7) DVT prophylaxis Comment: - SQ heparin (8) Full code status Status and Disposition: inpatient with Influenza B and s. pneumonia. most likely home when medically stable 1-2 days
[2018-12-29] MEDS ORDERED: hydrALAZINE IV* 20 MG/ML VIAL IV SLOW PU PRN (12:53)
[2018-12-29] MEDS: Cefepime 2 GM in Dextrose(*) 2 GM/50 ML BAG IV SCH (14:53)
[2018-12-29] MEDS: Losartan TAB* 25 MG PO SCH (17:27)
[2018-12-29] MEDS: Insulin GLARGINE(*) 1 UNITS UNIT SUBCUT SCH (17:27)
[2018-12-29] MEDS: Atorvastatin* 80 MG TAB PO SCH (17:27)
[2018-12-29] MEDS: Montelukast Sodium TAB* 10 MG PO SCH (20:32)
[2018-12-29] MEDS ORDERED: Melatonin (NF) ** ENTER STRENGTH IN LABEL DIRECTIONS PO PRN (21:02)
[2018-12-29] MEDS: Melatonin 3 MG TAB PO PRN (21:24)
[2018-12-29] MEDS: risperiDONE TAB* 1 MG PO SCH (23:58)
[2018-12-30] MEDS: Cefepime 2 GM in Dextrose(*) 2 GM/50 ML BAG IV SCH ×2 (00:53→12:32)
[2018-12-30] MEDS ORDERED: risperiDONE TAB* 1 MG PO ONE (03:17)
[2018-12-30 05:35] LABS: Hematocrit 36 % (36-46); Hemoglobin 12.3 g/dL (14.0-18.0); Mean Corpuscular HGB Conc 34 g/dL (31-36); Mean Corpuscular Hemoglobin 30 pg (27-31); Mean Corpuscular Volume 87 fL (80-94); Mean Platelet Volume 8.8 fL (7.4-10.4); Platelet Count 149 10^3/uL (150-450); Red Cell Distribution Width 15 % (10.5-15); White Blood Count 6.2 10^3/uL (3.5-10.8)
[2018-12-30 05:56] LABS: BUN/Creatinine Ratio 26.4 (8-20); Calcium 8.5 mg/dL (8.6-10.3); EGFR African American 80.2 (>60); EGFR Non-African American 66.2 (>60); Potassium 3.8 mmol/L (3.5-5.0)
[2018-12-30 06:08] LABS: ABS Basophils 0 10^3/ul (0-0.2); ABS Eosinophils 0 10^3/ul (0-0.6); ABS Lymphocytes 0.9 10^3/ul (1.0-4.8); ABS Monocytes 0.6 10^3/ul (0-0.8); ABS Neutrophils 4.6 10^3/ul (1.5-7.7); ABS Nucleated RBC 0 10^3/ul; Eosinophil % 0.1 %; Nucleated Red Blood Cells % 0
[2018-12-30] MEDS: Heparin VIAL(*) 5000 UNITS/ML VIAL (FIVE THOUSAND) SUBCUT SCH ×3 (06:22→21:15)
[2018-12-30] MEDS: guaiFENesin LIQ* 100 MG/5 ML UDC PO SCH ×4 (06:22→21:53)
[2018-12-30] MEDS: Mometasone/Formoter 200/5 MDI INH SCH (07:29)
[2018-12-30] MEDS: Insulin LISPRO* 1 UNITS UNIT SUBCUT SCH ×4 (09:07→21:50)
[2018-12-30] MEDS: Oseltamivir SUSP 30 MG dose* 30 MG/5 ML ORAL.SYRIN PO SCH ×2 (09:09→21:14)
[2018-12-30] MEDS: Clopidogrel TAB* 75 MG PO SCH (09:09)
[2018-12-30] MEDS: Aspirin EC TAB* 81 MG TAB.EC PO SCH (09:10)
[2018-12-30] MEDS: Metoprolol Tartrate TAB* 25 MG PO SCH ×2 (09:10→16:47)
[2018-12-30] MEDS: Ascorbic Acid TAB* 500 MG PO SCH (09:10)
[2018-12-30] MEDS: Potassium Chlor TAB* 20 MEQ TAB.ER PO SCH (09:10)
[2018-12-30] MEDS: Pantoprazole TAB * 40 MG TAB PO SCH (09:10)
[2018-12-30] MEDS: Ferrous Sulfate TAB* 325 MG PO SCH (09:10)
[2018-12-30] MEDS: Calcium Carbonate CHEW TAB* 500 MG (TUMS) PO SCH (09:10)
[2018-12-30] MEDS: predniSONE TAB* 20 MG PO SCH (09:11)
--- NOTE | 2018-12-30 13:00 | PN ---
Subjective Date of Service: 12/30/18 Interval History: Pt could not sleep last night and got a dose of Risperdal at 3 aM. This AM notes that pt is more confused then normal. 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 Pt still had TREJO, cough resolving Objective Active Medications: Acetaminophen (Tylenol Tab*) 650 mg PO Q6H PRN PRN Reason: FEVER/PAIN Last Admin: 12/29/18 10:38 Dose: 650 mg Albuterol (Ventolin 2.5 Mg/3 Ml Neb.Shayla*) 2.5 mg INH Q2H PRN PRN Reason: SOB/WHEEZING Ascorbic Acid (Vitamin C Tab*) 500 mg PO DAILY [facility] Last Admin: 12/30/18 09:10 Dose: 500 mg Aspirin (Aspirin Ec Tab*) 81 mg PO QAM [facility] Last Admin: 12/30/18 09:10 Dose: 81 mg Atorvastatin Calcium (Lipitor*) 80 mg PO 1700 [facility] Last Admin: 12/29/18 17:27 Dose: 80 mg Benzonatate (Tessalon Cap*) 100 mg PO BID PRN PRN Reason: COUGH Calcium Carbonate (Tums*) 1,000 mg PO DAILY [facility] Last Admin: 12/30/18 09:10 Dose: 1,000 mg Clopidogrel Bisulfate (Plavix Tab*) 75 mg PO QAM [facility] Last Admin: 12/30/18 09:09 Dose: 75 mg Dextrose (D50w Syringe 50 Ml*) 12.5 gm IV PUSH .FOR FS < 60 - SS PRN PRN Reason: FS < 60 Ferrous Sulfate (Ferrous Sulfate Tab*) 325 mg PO DAILY [facility] Last Admin: 12/30/18 09:10 Dose: 325 mg Guaifenesin (Robitussin*) 5 ml PO Q6H [facility] Last Admin: 12/30/18 09:09 Dose: 5 ml Heparin Sodium (Porcine) (Heparin Vial(*)) 5,000 units SUBCUT Q8HR [facility] Last Admin: 12/30/18 12:32 Dose: 5,000 units Hydralazine HCl (Apresoline Iv*) 5 mg IV SLOW PU Q6H PRN PRN Reason: BLOOD PRESSURE Cefepime HCl (Maxipime 2 Gm In Dextrose Duplex (*)) 2 gm in 50 mls @ 100 mls/ hr IV Q12H [facility] Last Admin: 12/30/18 12:32 Dose: 100 mls/hr Insulin Glargine (Lantus(*)) 26 units SUBCUT QPM [facility] Last Admin: 12/29/18 17:27 Dose: 26 units Insulin Human Lispro (Humalog*) 0 units SUBCUT ACHS [facility]; Protocol Last Admin: 12/30/18 12:32 Dose: 6 units Losartan Potassium (Cozaar Tab*) 50 mg PO QPM [facility] Last Admin: 12/29/18 17:27 Dose: 50 mg Melatonin (Melatonin) 6 mg PO BEDTIME PRN PRN Reason: SLEEP Last Admin: 12/29/18 21:24 Dose: 6 mg Metoprolol Tartrate (Lopressor Tab*) 25 mg PO BID WITH MEALS [facility] Last Admin: 12/30/18 09:10 Dose: 25 mg Mometasone Furoate/Formoterol Fumar (Dulera 200/5 Mdi*) 2 puff INH BID [facility] Last Admin: 12/30/18 07:29 Dose: 2 puff Montelukast Sodium (Singulair Tab*) 10 mg PO BEDTIME [facility] Last Admin: 12/29/18 20:32 Dose: 10 mg Ondansetron HCl (Zofran Inj*) 4 mg IV Q6H PRN PRN Reason: NAUSEA Oseltamivir Phosphate (Tamiflu Susp 30 Mg Dose*) 30 mg PO BID [facility] Stop: 01/01/19 09:01 Last Admin: 12/30/18 09:09 Dose: 30 mg Pantoprazole Sodium (Protonix Tab*) 40 mg PO DAILY [facility]; Protocol Last Admin: 12/30/18 09:10 Dose: 40 mg Potassium Chloride (Klor Con Er Tab*) 20 meq PO DAILY [facility] Last Admin: 12/30/18 09:10 Dose: 20 meq Risperidone (Risperdal*) 1 mg PO BEDTIME [facility] Last Admin: 12/29/18 23:58 Dose: 1 mg Vital Signs - 8 hr 12/30/18 12/30/18 12/30/18 07:20 07:31 08:00 Temperature 97.6 F Pulse Rate 64 80 Respiratory 18 14 20 Rate Blood Pressure 141/65 (mmHg) O2 Sat by Pulse 96 95 Oximetry 12/30/18 11:52 Temperature 97.3 F Pulse Rate 66 Respiratory 16 Rate Blood Pressure 148/65 (mmHg) O2 Sat by Pulse 95 Oximetry Oxygen Devices in Use Now: None Appearance: 88 yo M in nAD, poor historian, oriented to self, location, disoriented to time Eyes: No Scleral Icterus, PERRLA Ears/Nose/Mouth/Throat: NL Teeth, Lips, Gums, Mucous Membranes Moist Neck: NL Appearance and Movements; NL JVP, Trachea Midline Respiratory: Symmetrical Chest Expansion and Respiratory Effort, - - mild rhonchi at LLL Cardiovascular: NL Sounds; No Murmurs; No JVD, RRR Abdominal: NL Sounds; No Tenderness; No Distention Lymphatic: No Cervical Adenopathy Extremities: No Clubbing, Cyanosis, - - trace pedal edema b/l Skin: No Rash or Ulcers, No Nodules or Sclerosis Neurological: NL Muscle Strength and Tone Result Diagrams: 12/30/18 04:51 12/30/18 04:51 Additional Lab and Data: Lab Results Microbiology and Other Data: Microbiology 12/27/18 18:10 Gram Stain - Final Sputum Expectorated 12/27/18 13:46 Legionella Urinary Antigen - Final Urine Negative Legionella Antigen Streptococcus pneumoniae Ag Screen - Final Positive S. Pneumo Antigen 12/27/18 09:40 Group A Streptococcus Rapid Screen - Final Throat Specimen received for Rapid Strep A Molecular testing 12/27/18 09:40 Influenza Types A,B Antigen - Final Nasal Specimen received for Influenza A/B Molecular testing Assess/Plan/Problems-Billing Assessment: 87 yo male with a PMH of COPD, DM2, HTN, hx of CVA, CAD x2 who presented to the ER on 12/27 with c/o sob, cough, AMS x 2 days found to have Flu B and PNA - Patient Problems (1) COPD exacerbation Comment: -pt gets confused at night, steroids can make it worse. will d/c oral prednisone - nebs, inhalers - flutter valve (2) Influenza B Comment: - continue Tamiflu 5 day course - supportive treatment (3) Pneumonia Comment: - improving - positive S. Pneumonia - sputum cx growing pseudomonas - cont cefepime 2gm q12 (4) History of hypertension Comment: - stable. - Hold HCTZ. continue BB, losartan - Hydralyzine prn (5) Hx of coronary artery disease Comment: - Asymptomatic - Continue ASA, clopidogrel, BB, and statin (6) Type 2 diabetes mellitus Comment: - FSBG ACHS - hold home glipizide, - continue home Lantus - continue Lispro sliding scale (7) DVT prophylaxis Comment: - SQ heparin Status and Disposition: inpatient with Influenza B. requests re-eval of DC and possible PMRU, she is unsure if she can manage with pt at home Medically ready for discharge
[2018-12-30] MEDS: Atorvastatin* 80 MG TAB PO SCH (16:53)
[2018-12-30] MEDS ORDERED: GuaiFENesin DM* 5 ML UDC PO PRN (17:10)
[2018-12-30] MEDS: Insulin GLARGINE(*) 1 UNITS UNIT SUBCUT SCH (18:07)
[2018-12-30] MEDS: Losartan TAB* 25 MG PO SCH (18:08)
[2018-12-30] MEDS: Montelukast Sodium TAB* 10 MG PO SCH (21:14)
[2018-12-30] MEDS: risperiDONE TAB* 1 MG PO SCH (21:14)
[2018-12-30] MEDS: Melatonin 3 MG TAB PO PRN (21:49)
[2018-12-30] MEDS ORDERED: Insulin LISPRO* 1 UNITS UNIT SUBCUT ONE (21:50)
[2018-12-31] MEDS: Cefepime 2 GM in Dextrose(*) 2 GM/50 ML BAG IV SCH ×2 (01:13→14:45)
[2018-12-31] MEDS: guaiFENesin LIQ* 100 MG/5 ML UDC PO SCH ×4 (05:11→21:19)
[2018-12-31] MEDS: Heparin VIAL(*) 5000 UNITS/ML VIAL (FIVE THOUSAND) SUBCUT SCH ×3 (05:11→21:15)
[2018-12-31] MEDS: Potassium Chlor TAB* 20 MEQ TAB.ER PO SCH (09:49)
[2018-12-31] MEDS: Clopidogrel TAB* 75 MG PO SCH (09:49)
[2018-12-31] MEDS: Ferrous Sulfate TAB* 325 MG PO SCH (09:49)
[2018-12-31] MEDS: Aspirin EC TAB* 81 MG TAB.EC PO SCH ×2 (09:50→10:42)
[2018-12-31] MEDS: Pantoprazole TAB * 40 MG TAB PO SCH (09:50)
[2018-12-31] MEDS: Ascorbic Acid TAB* 500 MG PO SCH ×2 (09:50→10:41)
[2018-12-31] MEDS: Calcium Carbonate CHEW TAB* 500 MG (TUMS) PO SCH ×2 (09:50→10:42)
[2018-12-31] MEDS: Metoprolol Tartrate TAB* 25 MG PO SCH ×3 (09:50→16:59)
[2018-12-31] MEDS: Insulin LISPRO* 1 UNITS UNIT SUBCUT SCH ×4 (09:51→21:15)
[2018-12-31] MEDS: Oseltamivir SUSP 30 MG dose* 30 MG/5 ML ORAL.SYRIN PO SCH ×2 (09:56→21:18)
[2018-12-31] MEDS: Mometasone/Formoter 200/5 MDI INH SCH ×3 (09:56→20:03)
[2018-12-31] MEDS: Atorvastatin* 80 MG TAB PO SCH (17:02)
[2018-12-31] MEDS: Losartan TAB* 25 MG PO SCH (17:05)
[2018-12-31] MEDS: Insulin GLARGINE(*) 1 UNITS UNIT SUBCUT SCH (17:05)
--- NOTE | 2018-12-31 17:21 | PN ---
Subjective Date of Service: 12/31/18 Interval History: Pt feel tire this AM, but pleasant, confused at baseline. seen with his by the bedside. No c/o CP/SOB. cough resolving Objective Active Medications: Acetaminophen (Tylenol Tab*) 650 mg PO Q6H PRN PRN Reason: FEVER/PAIN Last Admin: 12/29/18 10:38 Dose: 650 mg Albuterol (Ventolin 2.5 Mg/3 Ml Neb.Shayla*) 2.5 mg INH Q2H PRN PRN Reason: SOB/WHEEZING Ascorbic Acid (Vitamin C Tab*) 500 mg PO DAILY [facility] Last Admin: 12/31/18 10:41 Dose: Not Given Aspirin (Aspirin Ec Tab*) 81 mg PO QAM [facility] Last Admin: 12/31/18 10:42 Dose: Not Given Atorvastatin Calcium (Lipitor*) 80 mg PO 1700 [facility] Last Admin: 12/31/18 17:02 Dose: 80 mg Benzonatate (Tessalon Cap*) 100 mg PO BID PRN PRN Reason: COUGH Calcium Carbonate (Tums*) 1,000 mg PO DAILY [facility] Last Admin: 12/31/18 10:42 Dose: Not Given Clopidogrel Bisulfate (Plavix Tab*) 75 mg PO QAM [facility] Last Admin: 12/31/18 09:49 Dose: 75 mg Dextrose (D50w Syringe 50 Ml*) 12.5 gm IV PUSH .FOR FS < 60 - SS PRN PRN Reason: FS < 60 Ferrous Sulfate (Ferrous Sulfate Tab*) 325 mg PO DAILY [facility] Last Admin: 12/31/18 09:49 Dose: 325 mg Guaifenesin (Robitussin*) 5 ml PO Q6H [facility] Last Admin: 12/31/18 17:03 Dose: 5 ml Guaifenesin/Dextromethorphan (Robitussin Dm*) 5 ml PO Q4H PRN PRN Reason: COUGH Heparin Sodium (Porcine) (Heparin Vial(*)) 5,000 units SUBCUT Q8HR [facility] Last Admin: 12/31/18 14:33 Dose: 5,000 units Hydralazine HCl (Apresoline Iv*) 5 mg IV SLOW PU Q6H PRN PRN Reason: BLOOD PRESSURE Cefepime HCl (Maxipime 2 Gm In Dextrose Duplex (*)) 2 gm in 50 mls @ 100 mls/ hr IV Q12H [facility] Last Admin: 12/31/18 14:45 Dose: 100 mls/hr Insulin Glargine (Lantus(*)) 26 units SUBCUT QPM [facility] Last Admin: 12/31/18 17:05 Dose: 26 units Insulin Human Lispro (Humalog*) 0 units SUBCUT ACHS [facility]; Protocol Last Admin: 12/31/18 17:05 Dose: 4 units Losartan Potassium (Cozaar Tab*) 50 mg PO QPM [facility] Last Admin: 12/31/18 17:05 Dose: 50 mg Melatonin (Melatonin) 6 mg PO BEDTIME PRN PRN Reason: SLEEP Last Admin: 12/30/18 21:49 Dose: 6 mg Metoprolol Tartrate (Lopressor Tab*) 25 mg PO BID WITH MEALS [facility] Last Admin: 12/31/18 16:59 Dose: 25 mg Mometasone Furoate/Formoterol Fumar (Dulera 200/5 Mdi*) 2 puff INH BID [facility] Last Admin: 12/31/18 09:56 Dose: 2 puff Montelukast Sodium (Singulair Tab*) 10 mg PO BEDTIME [facility] Last Admin: 12/30/18 21:14 Dose: 10 mg Ondansetron HCl (Zofran Inj*) 4 mg IV Q6H PRN PRN Reason: NAUSEA Oseltamivir Phosphate (Tamiflu Susp 30 Mg Dose*) 30 mg PO BID [facility] Stop: 01/01/19 09:01 Last Admin: 12/31/18 09:56 Dose: 30 mg Pantoprazole Sodium (Protonix Tab*) 40 mg PO DAILY [facility]; Protocol Last Admin: 12/31/18 09:50 Dose: 40 mg Potassium Chloride (Klor Con Er Tab*) 20 meq PO DAILY [facility] Last Admin: 12/31/18 09:49 Dose: 20 meq Risperidone (Risperdal*) 1 mg PO BEDTIME [facility] Last Admin: 12/30/18 21:14 Dose: 1 mg Vital Signs - 8 hr 12/31/18 12/31/18 12/31/18 11:33 14:18 17:10 Temperature 97.8 F 97.2 F Pulse Rate 54 75 84 Respiratory 18 16 Rate Blood Pressure 127/71 134/58 157/81 (mmHg) O2 Sat by Pulse 97 96 Oximetry Oxygen Devices in Use Now: None Appearance: 88 yo M in nAD, aAOx2 Eyes: No Scleral Icterus, PERRLA Ears/Nose/Mouth/Throat: NL Teeth, Lips, Gums, Mucous Membranes Moist Neck: NL Appearance and Movements; NL JVP, Trachea Midline Respiratory: Symmetrical Chest Expansion and Respiratory Effort, - - LLL rhonchi Cardiovascular: NL Sounds; No Murmurs; No JVD, RRR Abdominal: NL Sounds; No Tenderness; No Distention Lymphatic: No Cervical Adenopathy Extremities: No Edema Skin: No Nodules or Sclerosis Neurological: NL Muscle Strength and Tone Result Diagrams: 12/30/18 04:51 12/30/18 04:51 Additional Lab and Data: Lab Results Microbiology and Other Data: Microbiology 12/27/18 18:10 Gram Stain - Final Sputum Expectorated 12/27/18 13:46 Legionella Urinary Antigen - Final Urine Negative Legionella Antigen Streptococcus pneumoniae Ag Screen - Final Positive S. Pneumo Antigen 12/27/18 09:40 Group A Streptococcus Rapid Screen - Final Throat Specimen received for Rapid Strep A Molecular testing 12/27/18 09:40 Influenza Types A,B Antigen - Final Nasal Specimen received for Influenza A/B Molecular testing Assess/Plan/Problems-Billing Assessment: 87 yo male with a PMH of COPD, DM2, HTN, hx of CVA, CAD x2 who presented to the ER on 12/27 with c/o sob, cough, AMS x 2 days found to have Flu B and PNA - Patient Problems (1) COPD exacerbation Comment: -oral prednisone d/c'd on 12/30/18 due to irritability at night -clinically improved - nebs, inhalers - flutter valve (2) Influenza B Comment: -with pneumonia secondary to it - continue Tamiflu 5 day course - supportive treatment (3) Pneumonia Comment: - imposible to distinguish if the pneumonia waas causeb by flu, psedomonas or strep pneumo - positive S. Pneumonia - sputum cx growing pseudomonas - cont cefepime 2gm q12 (4) History of hypertension Comment: - stable. - Hold HCTZ. continue BB, losartan - Hydralazine prn (5) Hx of coronary artery disease Comment: - Asymptomatic - Continue ASA, clopidogrel, BB, and statin (6) Type 2 diabetes mellitus Comment: -uncontrolled due to prednisone, normalizing once steroids discontinued - FSBG ACHS - hold home glipizide, - continue home Lantus - continue Lispro sliding scale (7) DVT prophylaxis Comment: - SQ heparin Status and Disposition: inpatient with Influenza B. Medically ready for discharge, awaiting STR.
[2018-12-31] MEDS: Montelukast Sodium TAB* 10 MG PO SCH (21:19)
[2019-01-01] MEDS: Cefepime 2 GM in Dextrose(*) 2 GM/50 ML BAG IV SCH ×2 (00:42→12:44)
[2019-01-01] MEDS: guaiFENesin LIQ* 100 MG/5 ML UDC PO SCH ×5 (05:31→22:11)
[2019-01-01] MEDS: Heparin VIAL(*) 5000 UNITS/ML VIAL (FIVE THOUSAND) SUBCUT SCH ×3 (05:32→22:02)
[2019-01-01 06:06] LABS: Hematocrit 40 % (36-46); Hemoglobin 13.6 g/dL (14.0-18.0); Mean Corpuscular HGB Conc 34 g/dL (31-36); Mean Corpuscular Hemoglobin 30 pg (27-31); Mean Corpuscular Volume 87 fL (80-94); Mean Platelet Volume 8.8 fL (7.4-10.4); Platelet Count 155 10^3/uL (150-450); Red Blood Count 4.54 10^6 /uL (4.18-5.48); Red Cell Distribution Width 15 % (10.5-15); White Blood Count 5.4 10^3/uL (3.5-10.8)
[2019-01-01 06:27] LABS: BUN/Creatinine Ratio 20.8 (8-20); Calcium 8.7 mg/dL (8.6-10.3); EGFR African American 80.2 (>60); EGFR Non-African American 66.2 (>60); Potassium 3.7 mmol/L (3.5-5.0)
[2019-01-01 06:56] LABS: ABS Basophils 0 10^3/ul (0-0.2); ABS Eosinophils 0 10^3/ul (0-0.6); ABS Lymphocytes 1.5 10^3/ul (1.0-4.8); ABS Monocytes 0.5 10^3/ul (0-0.8); ABS Neutrophils 3.3 10^3/ul (1.5-7.7); ABS Nucleated RBC 0 10^3/ul; Eosinophil % 0.9 %; Nucleated Red Blood Cells % 0.1
[2019-01-01] MEDS: Mometasone/Formoter 200/5 MDI INH SCH ×2 (07:27→19:38)
[2019-01-01] MEDS: Insulin LISPRO* 1 UNITS UNIT SUBCUT SCH ×4 (09:07→22:01)
[2019-01-01] MEDS: Clopidogrel TAB* 75 MG PO SCH ×2 (09:33→12:39)
[2019-01-01] MEDS: Oseltamivir SUSP 30 MG dose* 30 MG/5 ML ORAL.SYRIN PO SCH ×2 (09:33→12:44)
[2019-01-01] MEDS: Metoprolol Tartrate TAB* 25 MG PO SCH ×3 (09:33→16:56)
[2019-01-01] MEDS: Aspirin EC TAB* 81 MG TAB.EC PO SCH ×2 (09:33→11:32)
[2019-01-01] MEDS: Pantoprazole TAB * 40 MG TAB PO SCH ×2 (09:33→11:32)
[2019-01-01] MEDS: Ascorbic Acid TAB* 500 MG PO SCH ×2 (09:34→09:47)
[2019-01-01] MEDS: Potassium Chlor TAB* 20 MEQ TAB.ER PO SCH ×2 (09:34→11:32)
[2019-01-01] MEDS: Ferrous Sulfate TAB* 325 MG PO SCH ×2 (09:34→11:32)
[2019-01-01] MEDS: Calcium Carbonate CHEW TAB* 500 MG (TUMS) PO SCH (09:47)
--- NOTE | 2019-01-01 11:40 | PN ---
Subjective Date of Service: 01/01/19 Interval History: Pt is tired today. refused breakfast. Wants to sleep. He did not receive and meds fro sleep or sedation last night. Seen with Objective Active Medications: Acetaminophen (Tylenol Tab*) 650 mg PO Q6H PRN PRN Reason: FEVER/PAIN Last Admin: 12/29/18 10:38 Dose: 650 mg Albuterol (Ventolin 2.5 Mg/3 Ml Neb.Shayla*) 2.5 mg INH Q2H PRN PRN Reason: SOB/WHEEZING Ascorbic Acid (Vitamin C Tab*) 500 mg PO DAILY [facility] Last Admin: 01/01/19 09:47 Dose: Not Given Aspirin (Aspirin Ec Tab*) 81 mg PO QAM [facility] Last Admin: 01/01/19 11:32 Dose: Not Given Atorvastatin Calcium (Lipitor*) 80 mg PO 1700 [facility] Last Admin: 12/31/18 17:02 Dose: 80 mg Benzonatate (Tessalon Cap*) 100 mg PO BID PRN PRN Reason: COUGH Calcium Carbonate (Tums*) 1,000 mg PO DAILY [facility] Last Admin: 01/01/19 09:47 Dose: Not Given Clopidogrel Bisulfate (Plavix Tab*) 75 mg PO QAM [facility] Last Admin: 12/31/18 09:49 Dose: 75 mg Dextrose (D50w Syringe 50 Ml*) 12.5 gm IV PUSH .FOR FS < 60 - SS PRN PRN Reason: FS < 60 Ferrous Sulfate (Ferrous Sulfate Tab*) 325 mg PO DAILY [facility] Last Admin: 01/01/19 11:32 Dose: Not Given Guaifenesin (Robitussin*) 5 ml PO Q6H [facility] Last Admin: 01/01/19 05:31 Dose: Not Given Guaifenesin/Dextromethorphan (Robitussin Dm*) 5 ml PO Q4H PRN PRN Reason: COUGH Heparin Sodium (Porcine) (Heparin Vial(*)) 5,000 units SUBCUT Q8HR [facility] Last Admin: 01/01/19 05:32 Dose: 5,000 units Hydralazine HCl (Apresoline Iv*) 5 mg IV SLOW PU Q6H PRN PRN Reason: BLOOD PRESSURE Cefepime HCl (Maxipime 2 Gm In Dextrose Duplex (*)) 2 gm in 50 mls @ 100 mls/ hr IV Q12H [facility] Last Admin: 01/01/19 00:42 Dose: 100 mls/hr Insulin Glargine (Lantus(*)) 26 units SUBCUT QPM [facility] Last Admin: 12/31/18 17:05 Dose: 26 units Insulin Human Lispro (Humalog*) 0 units SUBCUT ACHS [facility]; Protocol Last Admin: 01/01/19 09:07 Dose: Not Given Losartan Potassium (Cozaar Tab*) 50 mg PO QPM [facility] Last Admin: 12/31/18 17:05 Dose: 50 mg Melatonin (Melatonin) 6 mg PO BEDTIME PRN PRN Reason: SLEEP Last Admin: 12/30/18 21:49 Dose: 6 mg Metoprolol Tartrate (Lopressor Tab*) 25 mg PO BID WITH MEALS [facility] Last Admin: 12/31/18 16:59 Dose: 25 mg Mometasone Furoate/Formoterol Fumar (Dulera 200/5 Mdi*) 2 puff INH BID [facility] Last Admin: 01/01/19 07:27 Dose: Not Given Montelukast Sodium (Singulair Tab*) 10 mg PO BEDTIME [facility] Last Admin: 12/31/18 21:19 Dose: 10 mg Ondansetron HCl (Zofran Inj*) 4 mg IV Q6H PRN PRN Reason: NAUSEA Pantoprazole Sodium (Protonix Tab*) 40 mg PO DAILY [facility]; Protocol Last Admin: 01/01/19 11:32 Dose: Not Given Potassium Chloride (Klor Con Er Tab*) 20 meq PO DAILY [facility] Last Admin: 01/01/19 11:32 Dose: Not Given Risperidone (Risperdal) 0.5 mg PO BEDTIME PRN PRN Reason: IRRITABILITY Vital Signs - 8 hr 01/01/19 01/01/19 07:51 08:17 Temperature 97.5 F Pulse Rate 64 Respiratory 19 18 Rate Blood Pressure 156/64 (mmHg) O2 Sat by Pulse 98 Oximetry Oxygen Devices in Use Now: None Appearance: 88 yo M in nAD, drifts off to sleep duering eval, oriented to self and place Eyes: No Scleral Icterus, PERRLA Ears/Nose/Mouth/Throat: NL Teeth, Lips, Gums, Mucous Membranes Moist Neck: NL Appearance and Movements; NL JVP, Trachea Midline Respiratory: Symmetrical Chest Expansion and Respiratory Effort, - - rhonchi at LLL Cardiovascular: NL Sounds; No Murmurs; No JVD Abdominal: NL Sounds; No Tenderness; No Distention Lymphatic: No Cervical Adenopathy Extremities: No Edema, No Clubbing, Cyanosis Skin: No Rash or Ulcers, No Nodules or Sclerosis Neurological: NL Muscle Strength and Tone Result Diagrams: 01/01/19 05:14 01/01/19 05:14 Additional Lab and Data: Lab Results Microbiology and Other Data: Microbiology 12/27/18 18:10 Gram Stain - Final Sputum Expectorated 12/27/18 13:46 Legionella Urinary Antigen - Final Urine Negative Legionella Antigen Streptococcus pneumoniae Ag Screen - Final Positive S. Pneumo Antigen 12/27/18 09:40 Group A Streptococcus Rapid Screen - Final Throat Specimen received for Rapid Strep A Molecular testing 12/27/18 09:40 Influenza Types A,B Antigen - Final Nasal Specimen received for Influenza A/B Molecular testing Assess/Plan/Problems-Billing Assessment: 87 yo male with a PMH of COPD, DM2, HTN, hx of CVA, CAD x2 who presented to the ER on 12/27 with c/o sob, cough, AMS x 2 days found to have Flu B and PNA - Patient Problems (1) COPD exacerbation Comment: -oral prednisone d/c'd on 12/30/18 due to irritability at night -clinically improved - nebs, inhalers - flutter valv-clinically improving daily (2) Influenza B Comment: -with pneumonia secondary to it - continue Tamiflu 5 day course - supportive treatment (3) Pneumonia Comment: - imposible to distinguish if the pneumonia was caused by flu, psedomonas or strep pneumo - positive S. Pneumonia - sputum cx growing pseudomonas - cont cefepime 2gm q12 (4) History of hypertension Comment: - stable. - Hold HCTZ. continue BB, losartan - Hydralazine prn (5) Hx of coronary artery disease Comment: - Asymptomatic - Continue ASA, clopidogrel, BB, and statin (6) Type 2 diabetes mellitus Comment: -uncontrolled due to prednisone, normalizing once steroids discontinued - FSBG ACHS - hold home glipizide, - continue home Lantus - continue Lispro sliding scale (7) DVT prophylaxis Comment: - SQ heparin Status and Disposition: inpatient with Influenza B. Medically ready for discharge, awaiting STR.
[2019-01-01] MEDS ORDERED: NS 0.9% 500 ML* 500 ML IV ONE (12:29)
[2019-01-01] MEDS: Atorvastatin* 80 MG TAB PO SCH (16:56)
[2019-01-01] MEDS: Losartan TAB* 25 MG PO SCH (16:59)
[2019-01-01] MEDS: NS 0.9% 1000 ML** 1,000 ML IV SCH (17:07)
[2019-01-01] MEDS: Insulin GLARGINE(*) 1 UNITS UNIT SUBCUT SCH (17:46)
[2019-01-01] MEDS: Montelukast Sodium TAB* 10 MG PO SCH (22:01)
[2019-01-02] MEDS: Cefepime 2 GM in Dextrose(*) 2 GM/50 ML BAG IV SCH ×2 (01:22→12:43)
[2019-01-02] MEDS: guaiFENesin LIQ* 100 MG/5 ML UDC PO SCH ×5 (04:47→20:58)
[2019-01-02 04:49] LABS: ABS Basophils 0.1 10^3/ul (0-0.2); ABS Eosinophils 0.1 10^3/ul (0-0.6); ABS Lymphocytes 1.2 10^3/ul (1.0-4.8); ABS Monocytes 0.7 10^3/ul (0-0.8); ABS Neutrophils 8.8 10^3/ul (1.5-7.7); ABS Nucleated RBC 0 10^3/ul; Eosinophil % 0.7 %; Hematocrit 40 % (36-46); Hemoglobin 13.8 g/dL (14.0-18.0); Lymphocyte % 11.3 %; Mean Corpuscular HGB Conc 34 g/dL (31-36); Mean Corpuscular Hemoglobin 30 pg (27-31); Mean Corpuscular Volume 87 fL (80-94); Mean Platelet Volume 8.4 fL (7.4-10.4); Nucleated Red Blood Cells % 0.1; Platelet Count 173 10^3/uL (150-450); Red Cell Distribution Width 15 % (10.5-15); White Blood Count 10.9 10^3/uL (3.5-10.8)
[2019-01-02 04:55] LABS: BUN/Creatinine Ratio 16.3 (8-20); Calcium 8.3 mg/dL (8.6-10.3); EGFR African American 81.9 (>60); EGFR Non-African American 67.7 (>60); Potassium 4.1 mmol/L (3.5-5.0)
[2019-01-02] MEDS: Heparin VIAL(*) 5000 UNITS/ML VIAL (FIVE THOUSAND) SUBCUT SCH ×3 (05:29→20:57)
[2019-01-02] MEDS: NS 0.9% 1000 ML** 1,000 ML IV SCH (07:10)
[2019-01-02] MEDS: Mometasone/Formoter 200/5 MDI INH SCH ×2 (08:19→19:31)
[2019-01-02] MEDS: Ferrous Sulfate TAB* 325 MG PO SCH (09:55)
[2019-01-02] MEDS: Pantoprazole TAB * 40 MG TAB PO SCH (09:55)
[2019-01-02] MEDS: Potassium Chlor TAB* 20 MEQ TAB.ER PO SCH (09:55)
[2019-01-02] MEDS: Metoprolol Tartrate TAB* 25 MG PO SCH ×2 (09:55→17:27)
[2019-01-02] MEDS: Clopidogrel TAB* 75 MG PO SCH (09:55)
[2019-01-02] MEDS: Ascorbic Acid TAB* 500 MG PO SCH (09:55)
[2019-01-02] MEDS: Aspirin EC TAB* 81 MG TAB.EC PO SCH (09:55)
[2019-01-02] MEDS: Insulin LISPRO* 1 UNITS UNIT SUBCUT SCH ×4 (09:56→20:57)
[2019-01-02] MEDS: Calcium Carbonate CHEW TAB* 500 MG (TUMS) PO SCH (10:05)
--- NOTE | 2019-01-02 16:17 | PN ---
Subjective Date of Service: 01/02/19 Interval History: Less confused today per d/w nurse and pt's . Pt trying to rest during interview Objective Active Medications: Acetaminophen (Tylenol Tab*) 650 mg PO Q6H PRN PRN Reason: FEVER/PAIN Last Admin: 12/29/18 10:38 Dose: 650 mg Albuterol (Ventolin 2.5 Mg/3 Ml Neb.Shayla*) 2.5 mg INH Q2H PRN PRN Reason: SOB/WHEEZING Ascorbic Acid (Vitamin C Tab*) 500 mg PO DAILY [facility] Last Admin: 01/02/19 09:55 Dose: 500 mg Aspirin (Aspirin Ec Tab*) 81 mg PO QAM [facility] Last Admin: 01/02/19 09:55 Dose: 81 mg Atorvastatin Calcium (Lipitor*) 80 mg PO 1700 [facility] Last Admin: 01/01/19 16:56 Dose: Not Given Benzonatate (Tessalon Cap*) 100 mg PO BID PRN PRN Reason: COUGH Calcium Carbonate (Tums*) 1,000 mg PO DAILY [facility] Last Admin: 01/02/19 10:05 Dose: Not Given Clopidogrel Bisulfate (Plavix Tab*) 75 mg PO QAM [facility] Last Admin: 01/02/19 09:55 Dose: 75 mg Dextrose (D50w Syringe 50 Ml*) 12.5 gm IV PUSH .FOR FS < 60 - SS PRN PRN Reason: FS < 60 Ferrous Sulfate (Ferrous Sulfate Tab*) 325 mg PO DAILY [facility] Last Admin: 01/02/19 09:55 Dose: 325 mg Guaifenesin (Robitussin*) 5 ml PO Q6H [facility] Last Admin: 01/02/19 10:06 Dose: Not Given Guaifenesin/Dextromethorphan (Robitussin Dm*) 5 ml PO Q4H PRN PRN Reason: COUGH Heparin Sodium (Porcine) (Heparin Vial(*)) 5,000 units SUBCUT Q8HR [facility] Last Admin: 01/02/19 12:43 Dose: 5,000 units Hydralazine HCl (Apresoline Iv*) 5 mg IV SLOW PU Q6H PRN PRN Reason: BLOOD PRESSURE Last Admin: 01/01/19 22:00 Dose: 5 mg Cefepime HCl (Maxipime 2 Gm In Dextrose Duplex (*)) 2 gm in 50 mls @ 100 mls/ hr IV Q12H [facility] Last Admin: 01/02/19 12:43 Dose: 100 mls/hr Sodium Chloride (Ns 0.9% 1000 Ml) 1,000 mls @ 75 mls/hr IV PER RATE [facility] Last Admin: 01/02/19 07:10 Dose: 75 mls/hr Insulin Glargine (Lantus(*)) 26 units SUBCUT QPM [facility] Last Admin: 01/01/19 17:46 Dose: 26 units Insulin Human Lispro (Humalog*) 0 units SUBCUT ACHS [facility]; Protocol Last Admin: 01/02/19 12:43 Dose: 6 units Losartan Potassium (Cozaar Tab*) 50 mg PO QPM [facility] Last Admin: 01/01/19 16:59 Dose: Not Given Melatonin (Melatonin) 6 mg PO BEDTIME PRN PRN Reason: SLEEP Last Admin: 12/30/18 21:49 Dose: 6 mg Metoprolol Tartrate (Lopressor Tab*) 25 mg PO BID WITH [facility]ALS [facility] Last Admin: 01/02/19 09:55 Dose: 25 mg Mometasone Furoate/Formoterol Fumar (Dulera 200/5 Mdi*) 2 puff INH BID [facility] Last Admin: 01/02/19 08:19 Dose: 2 puff Montelukast Sodium (Singulair Tab*) 10 mg PO BEDTIME [facility] Last Admin: 01/01/19 22:01 Dose: 10 mg Ondansetron HCl (Zofran Inj*) 4 mg IV Q6H PRN PRN Reason: NAUSEA Pantoprazole Sodium (Protonix Tab*) 40 mg PO DAILY [facility]; Protocol Last Admin: 01/02/19 09:55 Dose: 40 mg Potassium Chloride (Klor Con Er Tab*) 20 meq PO DAILY [facility] Last Admin: 01/02/19 09:55 Dose: 20 meq Risperidone (Risperdal) 0.5 mg PO BEDTIME PRN PRN Reason: IRRITABILITY Vital Signs - 8 hr 01/02/19 01/02/19 01/02/19 08:30 11:25 13:30 Temperature 97.1 F Pulse Rate 92 Respiratory 16 16 Rate Blood Pressure 132/74 155/75 (mmHg) O2 Sat by Pulse 94 Oximetry Oxygen Devices in Use Now: None Eyes: No Scleral Icterus Neck: NL Appearance and Movements; NL JVP Respiratory: Symmetrical Chest Expansion and Respiratory Effort, Clear to Auscultation Cardiovascular: NL Sounds; No Murmurs; No JVD Abdominal: NL Sounds; No Tenderness; No Distention Skin: No Rash or Ulcers Neurological: Alert and Oriented x 3 Result Diagrams: 01/02/19 04:30 01/02/19 04:30 Additional Lab and Data: Lab Results Microbiology and Other Data: Microbiology 12/27/18 18:10 Gram Stain - Final Sputum Expectorated 12/27/18 13:46 Legionella Urinary Antigen - Final Urine Negative Legionella Antigen Streptococcus pneumoniae Ag Screen - Final Positive S. Pneumo Antigen 12/27/18 09:40 Group A Streptococcus Rapid Screen - Final Throat Specimen received for Rapid Strep A Molecular testing 12/27/18 09:40 Influenza Types A,B Antigen - Final Nasal Specimen received for Influenza A/B Molecular testing Assess/Plan/Problems-Billing Assessment: 87 yo male with a PMH of COPD, DM2, HTN, hx of CVA, CAD x2 who presented to the ER on 12/27 with c/o sob, cough, AMS x 2 days found to have Flu B and PNA - Patient Problems (1) COPD exacerbation Current Visit: Yes Status: Acute Code(s): J44.1 - CHRONIC OBSTRUCTIVE PULMONARY DISEASE W (ACUTE) EXACERBATION SNOMED Code(s): 324602080 Comment: -oral prednisone d/c'd on 12/30/18 due to irritability at night -clinically improved - nebs, inhalers - flutter valv-clinically improving daily (2) Influenza B Current Visit: Yes Status: Acute Code(s): J10.1 - FLU DUE TO OTH IDENT INFLUENZA VIRUS W OTH RESP MANIFEST SNOMED Code(s): 60950410 Comment: -with pneumonia secondary to it - continue Tamiflu 5 day course - supportive treatment (3) Pneumonia Current Visit: Yes Status: Acute Code(s): J18.9 - PNEUMONIA, UNSPECIFIED ORGANISM SNOMED Code(s): 308316719 Comment: - imposible to distinguish if the pneumonia was caused by flu, psedomonas or strep pneumo - positive S. Pneumonia - sputum cx growing pseudomonas - cont cefepime 2gm q12 (4) History of hypertension Current Visit: Yes Status: Chronic Priority: Medium Code(s): Z86.79 - PERSONAL HISTORY OF OTHER DISEASES OF THE CIRCULATORY SYSTEM SNOMED Code(s): 034252727 Comment: - stable. - Hold HCTZ. continue BB, losartan - Hydralazine prn (5) Hx of coronary artery disease Current Visit: Yes Status: Chronic Priority: Medium Code(s): Z86.79 - PERSONAL HISTORY OF OTHER DISEASES OF THE CIRCULATORY SYSTEM SNOMED Code(s): 289643092 Comment: - Asymptomatic - Continue ASA, clopidogrel, BB, and statin (6) Type 2 diabetes mellitus Current Visit: Yes Status: Chronic Comment: -uncontrolled due to prednisone , normalizing once steroids discontinued - FSBG ACHS - hold home glipizide, - continue home Lantus - continue Lispro sliding scale (7) DVT prophylaxis Current Visit: Yes Status: Acute Code(s): [id number] - SNOMED Code(s): 220990282 Comment: - SQ heparin Status and Disposition: inpatient with Influenza B. Medically ready for discharge, awaiting STR.
[2019-01-02] MEDS: Atorvastatin* 80 MG TAB PO SCH (17:27)
[2019-01-02] MEDS: Insulin GLARGINE(*) 1 UNITS UNIT SUBCUT SCH (17:27)
[2019-01-02] MEDS: Losartan TAB* 25 MG PO SCH (17:27)
[2019-01-02] MEDS: Montelukast Sodium TAB* 10 MG PO SCH (20:58)
[2019-01-03] MEDS: Cefepime 2 GM in Dextrose(*) 2 GM/50 ML BAG IV SCH ×2 (00:39→13:45)
[2019-01-03] MEDS: guaiFENesin LIQ* 100 MG/5 ML UDC PO SCH ×2 (04:01→09:44)
[2019-01-03] MEDS: Heparin VIAL(*) 5000 UNITS/ML VIAL (FIVE THOUSAND) SUBCUT SCH ×3 (05:22→21:37)
[2019-01-03] MEDS: Mometasone/Formoter 200/5 MDI INH SCH ×2 (08:06→19:08)
[2019-01-03 08:20] LABS: ABS Basophils 0.2 10^3/ul (0-0.2); ABS Eosinophils 0.1 10^3/ul (0-0.6); ABS Lymphocytes 1.1 10^3/ul (1.0-4.8); ABS Monocytes 1.2 10^3/ul (0-0.8); ABS Neutrophils 12.5 10^3/ul (1.5-7.7); ABS Nucleated RBC 0 10^3/ul; Eosinophil % 0.7 %; Hematocrit 44 % (36-46); Hemoglobin 14.6 g/dL (14.0-18.0); Lymphocyte % 7.1 %; Mean Corpuscular HGB Conc 33 g/dL (31-36); Mean Corpuscular Hemoglobin 30 pg (27-31); Mean Corpuscular Volume 89 fL (80-94); Mean Platelet Volume 8.8 fL (7.4-10.4); Nucleated Red Blood Cells % 0.1; Platelet Count 190 10^3/uL (150-450); Red Blood Count 4.94 10^6 /uL (4.18-5.48); Red Cell Distribution Width 15 % (10.5-15); White Blood Count 15.1 10^3/uL (3.5-10.8)
[2019-01-03 08:37] LABS: BUN/Creatinine Ratio 16.2 (8-20); Calcium 9.1 mg/dL (8.6-10.3); EGFR Non-African American 62.8 (>60); Potassium 3.7 mmol/L (3.5-5.0)
[2019-01-03] MEDS: Insulin LISPRO* 1 UNITS UNIT SUBCUT SCH ×4 (09:18→20:27)
[2019-01-03] MEDS: Potassium Chlor TAB* 20 MEQ TAB.ER PO SCH (09:43)
[2019-01-03] MEDS: Aspirin EC TAB* 81 MG TAB.EC PO SCH (09:43)
[2019-01-03] MEDS: Ferrous Sulfate TAB* 325 MG PO SCH (09:43)
[2019-01-03] MEDS: Pantoprazole TAB * 40 MG TAB PO SCH (09:43)
[2019-01-03] MEDS: Metoprolol Tartrate TAB* 25 MG PO SCH ×2 (09:43→17:05)
[2019-01-03] MEDS: Clopidogrel TAB* 75 MG PO SCH (09:43)
[2019-01-03] MEDS: Calcium Carbonate CHEW TAB* 500 MG (TUMS) PO SCH (09:43)
[2019-01-03] MEDS: Ascorbic Acid TAB* 500 MG PO SCH (09:43)
[2019-01-03] MEDS: Losartan TAB* 25 MG PO SCH (17:05)
[2019-01-03] MEDS: Atorvastatin* 80 MG TAB PO SCH (17:05)
[2019-01-03] MEDS: Insulin GLARGINE(*) 1 UNITS UNIT SUBCUT SCH (17:33)
--- NOTE | 2019-01-03 18:16 | PN ---
Subjective Date of Service: 01/03/19 Interval History: Per nursing more combative this am.Has had good and bad days. crying at bedside as he told her that he dosent want her near him.Counselled that he is going through delirium and confusion.Per had some dementia at baseline but never like this Objective Active Medications: Acetaminophen (Tylenol Tab*) 650 mg PO Q6H PRN PRN Reason: FEVER/PAIN Last Admin: 12/29/18 10:38 Dose: 650 mg Albuterol (Ventolin 2.5 Mg/3 Ml Neb.Shayla*) 2.5 mg INH Q2H PRN PRN Reason: SOB/WHEEZING Ascorbic Acid (Vitamin C Tab*) 500 mg PO DAILY [facility] Last Admin: 01/03/19 09:43 Dose: Not Given Aspirin (Aspirin Ec Tab*) 81 mg PO QAM [facility] Last Admin: 01/03/19 09:43 Dose: Not Given Atorvastatin Calcium (Lipitor*) 80 mg PO 1700 [facility] Last Admin: 01/03/19 17:05 Dose: Not Given Benzonatate (Tessalon Cap*) 100 mg PO BID PRN PRN Reason: COUGH Calcium Carbonate (Tums*) 1,000 mg PO DAILY [facility] Last Admin: 01/03/19 09:43 Dose: Not Given Clopidogrel Bisulfate (Plavix Tab*) 75 mg PO QAM [facility] Last Admin: 01/03/19 09:43 Dose: Not Given Dextrose (D50w Syringe 50 Ml*) 12.5 gm IV PUSH .FOR FS < 60 - SS PRN PRN Reason: FS < 60 Ferrous Sulfate (Ferrous Sulfate Tab*) 325 mg PO DAILY [facility] Last Admin: 01/03/19 09:43 Dose: Not Given Heparin Sodium (Porcine) (Heparin Vial(*)) 5,000 units SUBCUT Q8HR [facility] Last Admin: 01/03/19 13:45 Dose: 5,000 units Hydralazine HCl (Apresoline Iv*) 5 mg IV SLOW PU Q6H PRN PRN Reason: BLOOD PRESSURE Last Admin: 01/01/19 22:00 Dose: 5 mg Cefepime HCl (Maxipime 2 Gm In Dextrose Duplex (*)) 2 gm in 50 mls @ 100 mls/ hr IV Q12H [facility] Last Admin: 01/03/19 13:45 Dose: 100 mls/hr Insulin Glargine (Lantus(*)) 26 units SUBCUT QPM [facility] Last Admin: 01/03/19 17:33 Dose: 26 units Insulin Human Lispro (Humalog*) 0 units SUBCUT ACHS [facility]; Protocol Last Admin: 01/03/19 17:33 Dose: 2 units Losartan Potassium (Cozaar Tab*) 50 mg PO QPM [facility] Last Admin: 01/03/19 17:05 Dose: Not Given Melatonin (Melatonin) 6 mg PO BEDTIME PRN PRN Reason: SLEEP Last Admin: 12/30/18 21:49 Dose: 6 mg Metoprolol Tartrate (Lopressor Tab*) 25 mg PO BID WITH MEALS [facility] Last Admin: 01/03/19 17:05 Dose: Not Given Mometasone Furoate/Formoterol Fumar (Dulera 200/5 Mdi*) 2 puff INH BID [facility] Last Admin: 01/03/19 08:06 Dose: 2 puff Montelukast Sodium (Singulair Tab*) 10 mg PO BEDTIME [facility] Last Admin: 01/02/19 20:58 Dose: Not Given Ondansetron HCl (Zofran Inj*) 4 mg IV Q6H PRN PRN Reason: NAUSEA Pantoprazole Sodium (Protonix Tab*) 40 mg PO DAILY [facility]; Protocol Last Admin: 01/03/19 09:43 Dose: Not Given Potassium Chloride (Klor Con Er Tab*) 20 meq PO DAILY [facility] Last Admin: 01/03/19 09:43 Dose: Not Given Risperidone (Risperdal) 0.5 mg PO BEDTIME PRN PRN Reason: IRRITABILITY Vital Signs - 8 hr 01/03/19 01/03/19 01/03/19 11:15 15:28 15:41 Temperature 97.3 F 97.1 F 97.1 F Pulse Rate 88 72 72 Respiratory 16 16 16 Rate Blood Pressure 126/96 130/63 130/63 (mmHg) O2 Sat by Pulse 96 100 100 Oximetry Oxygen Devices in Use Now: None Eyes: No Scleral Icterus Neck: NL Appearance and Movements; NL JVP, Trachea Midline Respiratory: Symmetrical Chest Expansion and Respiratory Effort, Clear to Auscultation Cardiovascular: NL Sounds; No Murmurs; No JVD, RRR Extremities: No Edema Result Diagrams: 01/03/19 07:41 01/03/19 07:41 Additional Lab and Data: Lab Results Microbiology and Other Data: Microbiology 12/27/18 18:10 Gram Stain - Final Sputum Expectorated 12/27/18 13:46 Legionella Urinary Antigen - Final Urine Negative Legionella Antigen Streptococcus pneumoniae Ag Screen - Final Positive S. Pneumo Antigen 12/27/18 09:40 Group A Streptococcus Rapid Screen - Final Throat Specimen received for Rapid Strep A Molecular testing 12/27/18 09:40 Influenza Types A,B Antigen - Final Nasal Specimen received for Influenza A/B Molecular testing Assess/Plan/Problems-Billing Assessment: 87 yo male with a PMH of COPD, DM2, HTN, hx of CVA, CAD x2 who presented to the ER on 12/27 with c/o sob, cough, AMS x 2 days found to have Flu B and PNA - Patient Problems (1) COPD exacerbation Current Visit: Yes Status: Acute Code(s): J44.1 - CHRONIC OBSTRUCTIVE PULMONARY DISEASE W (ACUTE) EXACERBATION SNOMED Code(s): 575859762 Comment: -oral prednisone d/c'd on 12/30/18 due to irritability at night -clinically improved - nebs, inhalers - flutter valv-clinically improving daily (2) Influenza B Current Visit: Yes Status: Acute Code(s): J10.1 - FLU DUE TO OTH IDENT INFLUENZA VIRUS W OTH RESP MANIFEST SNOMED Code(s): 04154272 Comment: -with pneumonia secondary to it - completed Tamiflu 5 day course - supportive treatment (3) Pneumonia Current Visit: Yes Status: Acute Code(s): J18.9 - PNEUMONIA, UNSPECIFIED ORGANISM SNOMED Code(s): 381053126 Comment: - imposible to distinguish if the pneumonia was caused by flu, psedomonas or strep pneumo - positive S. Pneumonia - sputum cx growing pseudomonas - cont cefepime 2gm q12 (4) History of hypertension Current Visit: Yes Status: Chronic Priority: Medium Code(s): Z86.79 - PERSONAL HISTORY OF OTHER DISEASES OF THE CIRCULATORY SYSTEM SNOMED Code(s): 642487656 Comment: - stable. - Hold HCTZ. continue BB, losartan - Hydralazine prn (5) Hx of coronary artery disease Current Visit: Yes Status: Chronic Priority: Medium Code(s): Z86.79 - PERSONAL HISTORY OF OTHER DISEASES OF THE CIRCULATORY SYSTEM SNOMED Code(s): 455830274 Comment: - Asymptomatic - Continue ASA, clopidogrel, BB, and statin (6) Type 2 diabetes mellitus Current Visit: Yes Status: Chronic Comment: -uncontrolled due to prednisone , normalizing once steroids discontinued - FSBG ACHS - hold home glipizide, - continue home Lantus - continue Lispro sliding scale (7) DVT prophylaxis Current Visit: Yes Status: Acute Code(s): VMP5376 - SNOMED Code(s): 645389328 Comment: - SQ heparin Status and Disposition: inpatient with Influenza B. Medically ready for discharge, awaiting STR.
[2019-01-03] MEDS: Montelukast Sodium TAB* 10 MG PO SCH (20:26)
[2019-01-03] MEDS: Melatonin 3 MG TAB PO PRN (22:13)
[2019-01-04] MEDS: Cefepime 2 GM in Dextrose(*) 2 GM/50 ML BAG IV SCH ×2 (01:02→13:03)
[2019-01-04] MEDS: Heparin VIAL(*) 5000 UNITS/ML VIAL (FIVE THOUSAND) SUBCUT SCH ×3 (05:21→21:31)
[2019-01-04 06:10] LABS: ABS Basophils 0.1 10^3/ul (0-0.2); ABS Eosinophils 0.2 10^3/ul (0-0.6); ABS Monocytes 0.8 10^3/ul (0-0.8); ABS Neutrophils 7.1 10^3/ul (1.5-7.7); ABS Nucleated RBC 0 10^3/ul; Eosinophil % 1.8 %; Hematocrit 35 % (36-46); Hemoglobin 11.9 g/dL (14.0-18.0); Lymphocyte % 10.6 %; Mean Corpuscular HGB Conc 34 g/dL (31-36); Mean Corpuscular Hemoglobin 30 pg (27-31); Mean Corpuscular Volume 87 fL (80-94); Mean Platelet Volume 8.9 fL (7.4-10.4); Nucleated Red Blood Cells % 0.1; Platelet Count 159 10^3/uL (150-450); Red Blood Count 3.98 10^6 /uL (4.18-5.48); Red Cell Distribution Width 15 % (10.5-15); White Blood Count 9.1 10^3/uL (3.5-10.8)
[2019-01-04 06:29] LABS: Calcium 8.4 mg/dL (8.6-10.3); EGFR African American 80.2 (>60); EGFR Non-African American 66.2 (>60); Potassium 3.5 mmol/L (3.5-5.0)
[2019-01-04] MEDS: Mometasone/Formoter 200/5 MDI INH SCH ×2 (07:41→19:32)
[2019-01-04] MEDS: Insulin LISPRO* 1 UNITS UNIT SUBCUT SCH ×4 (09:05→21:39)
[2019-01-04] MEDS: Metoprolol Tartrate TAB* 25 MG PO SCH ×2 (09:07→18:11)
[2019-01-04] MEDS: Ascorbic Acid TAB* 500 MG PO SCH (09:07)
[2019-01-04] MEDS: Potassium Chlor TAB* 20 MEQ TAB.ER PO SCH (09:07)
[2019-01-04] MEDS: Calcium Carbonate CHEW TAB* 500 MG (TUMS) PO SCH (09:07)
[2019-01-04] MEDS: Ferrous Sulfate TAB* 325 MG PO SCH (09:07)
[2019-01-04] MEDS: Pantoprazole TAB * 40 MG TAB PO SCH (09:08)
[2019-01-04] MEDS: Aspirin EC TAB* 81 MG TAB.EC PO SCH (09:08)
[2019-01-04] MEDS: Clopidogrel TAB* 75 MG PO SCH (09:08)
--- NOTE | 2019-01-04 15:28 | PN ---
Subjective Date of Service: 01/04/19 Interval History: HOSPITALIST PROGRESS NOTE Patient seen and examined at bedside. Care reviewed and d/w Boom Leal RN. He offers no complaints, pleasantly confused. Happy his and daughter are here taking care of him. Family History: Unchanged from Admission Social History: Unchanged from Admission Past Medical History: Unchanged from Admission Objective Active Medications: Acetaminophen (Tylenol Tab*) 650 mg PO Q6H PRN PRN Reason: FEVER/PAIN Last Admin: 12/29/18 10:38 Dose: 650 mg Albuterol (Ventolin 2.5 Mg/3 Ml Neb.Shayla*) 2.5 mg INH Q2H PRN PRN Reason: SOB/WHEEZING Ascorbic Acid (Vitamin C Tab*) 500 mg PO DAILY [facility] Last Admin: 01/04/19 09:07 Dose: 500 mg Aspirin (Aspirin Ec Tab*) 81 mg PO QAM [facility] Last Admin: 01/04/19 09:08 Dose: 81 mg Atorvastatin Calcium (Lipitor*) 80 mg PO 1700 [facility] Last Admin: 01/03/19 17:05 Dose: Not Given Benzonatate (Tessalon Cap*) 100 mg PO BID PRN PRN Reason: COUGH Calcium Carbonate (Tums*) 1,000 mg PO DAILY [facility] Last Admin: 01/04/19 09:07 Dose: 1,000 mg Clopidogrel Bisulfate (Plavix Tab*) 75 mg PO QAM [facility] Last Admin: 01/04/19 09:08 Dose: 75 mg Dextrose (D50w Syringe 50 Ml*) 12.5 gm IV PUSH .FOR FS < 60 - SS PRN PRN Reason: FS < 60 Ferrous Sulfate (Ferrous Sulfate Tab*) 325 mg PO DAILY [facility] Last Admin: 01/04/19 09:07 Dose: 325 mg Heparin Sodium (Porcine) (Heparin Vial(*)) 5,000 units SUBCUT Q8HR [facility] Last Admin: 01/04/19 13:02 Dose: 5,000 units Hydralazine HCl (Apresoline Iv*) 5 mg IV SLOW PU Q6H PRN PRN Reason: BLOOD PRESSURE Last Admin: 01/01/19 22:00 Dose: 5 mg Cefepime HCl (Maxipime 2 Gm In Dextrose Duplex (*)) 2 gm in 50 mls @ 100 mls/ hr IV Q12H [facility] Last Admin: 01/04/19 13:03 Dose: 100 mls/hr Insulin Glargine (Lantus(*)) 26 units SUBCUT QPM [facility] Last Admin: 01/03/19 17:33 Dose: 26 units Insulin Human Lispro (Humalog*) 0 units SUBCUT ACHS [facility]; Protocol Last Admin: 01/04/19 13:03 Dose: 6 units Losartan Potassium (Cozaar Tab*) 50 mg PO QPM [facility] Last Admin: 01/03/19 17:05 Dose: Not Given Melatonin (Melatonin) 6 mg PO BEDTIME PRN PRN Reason: SLEEP Last Admin: 01/03/19 22:13 Dose: 6 mg Metoprolol Tartrate (Lopressor Tab*) 25 mg PO BID WITH MEALS [facility] Last Admin: 01/04/19 09:07 Dose: 25 mg Mometasone Furoate/Formoterol Fumar (Dulera 200/5 Mdi*) 2 puff INH BID [facility] Last Admin: 01/04/19 07:41 Dose: Not Given Montelukast Sodium (Singulair Tab*) 10 mg PO BEDTIME [facility] Last Admin: 01/03/19 20:26 Dose: Not Given Ondansetron HCl (Zofran Inj*) 4 mg IV Q6H PRN PRN Reason: NAUSEA Pantoprazole Sodium (Protonix Tab*) 40 mg PO DAILY [facility]; Protocol Last Admin: 01/04/19 09:08 Dose: 40 mg Potassium Chloride (Klor Con Er Tab*) 20 meq PO DAILY [facility] Last Admin: 01/04/19 09:07 Dose: 20 meq Risperidone (Risperdal) 0.5 mg PO BEDTIME PRN PRN Reason: IRRITABILITY Last Admin: 01/03/19 22:13 Dose: 0.5 mg Vital Signs - 8 hr 01/04/19 01/04/19 01/04/19 08:07 10:06 11:47 Temperature 97.3 F 97.3 F Pulse Rate 69 62 Respiratory 16 16 Rate Blood Pressure 176/65 152/62 146/73 (mmHg) O2 Sat by Pulse 100 100 Oximetry Oxygen Devices in Use Now: None Appearance: Elderly gentleman sitting up in a recliner in NAD. Eyes: No Scleral Icterus Ears/Nose/Mouth/Throat: Mucous Membranes Moist Neck: Trachea Midline Respiratory: Symmetrical Chest Expansion and Respiratory Effort, - - BS+ bilaterally with crackles right base Cardiovascular: RRR - Normal S1 and S2 Neurological: - - AAOx2 (self and place), PEREZ Result Diagrams: 01/04/19 05:13 01/04/19 05:13 Microbiology and Other Data: Microbiology 12/27/18 18:10 Gram Stain - Final Sputum Expectorated 12/27/18 13:46 Legionella Urinary Antigen - Final Urine Negative Legionella Antigen Streptococcus pneumoniae Ag Screen - Final Positive S. Pneumo Antigen 12/27/18 09:40 Group A Streptococcus Rapid Screen - Final Throat Specimen received for Rapid Strep A Molecular testing 12/27/18 09:40 Influenza Types A,B Antigen - Final Nasal Specimen received for Influenza A/B Molecular testing Assess/Plan/Problems-Billing Assessment: Mr Simmons is an 87 yo M with a PMH of COPD, DM2, HTN, hx of CVA, CAD x2 who presented to the ER on 12/27 with c/o SOB, cough, AMS x 2 days found to have Flu B and PNA. - Patient Problems (1) Influenza B Comment: - Completed 5 days of Tamiflu. (2) COPD exacerbation Comment: - Improved. - PO prednisone discontinued. - Continue bronchodilators. (3) Pneumonia Comment: - Sputum culture grew Pseudomonas and pneumococcal Ag was positive - not possible to determine which one is the pathogen, so will treat both. - Continue Cefepime #6/7. (4) History of hypertension Comment: - Controlled. - Continue Losartan and Metoprolol. (5) Hx of coronary artery disease Comment: - Asymptomatic - Continue ASA, clopidogrel, BB, and statin (6) Type 2 diabetes mellitus Comment: - Continue FS ACHS. - Continue Lantus and Lispro SS. (7) DVT prophylaxis Comment: - SQ heparin (8) Full code status Status and Disposition: Inpatient. Anticipate d/c to [facility] in AM when he completes his Cefepime course.
[2019-01-04] MEDS: Atorvastatin* 80 MG TAB PO SCH (18:10)
[2019-01-04] MEDS: Insulin GLARGINE(*) 1 UNITS UNIT SUBCUT SCH (18:11)
[2019-01-04] MEDS: Losartan TAB* 25 MG PO SCH (18:11)
[2019-01-04] MEDS: Montelukast Sodium TAB* 10 MG PO SCH (21:31)
[2019-01-04] MEDS: Melatonin 3 MG TAB PO PRN (21:59)
--- NOTE | 2019-01-04 23:44 | DS ---
CC: Dr. Blevins; Dr. Manisha Carmona, [facility] * DISCHARGE SUMMARY: DATE OF ADMISSION: 12/27/18 DATE OF DISCHARGE: 01/05/19 PRIMARY CARE PHYSICIAN: Dr. Blevins. DISCHARGE DIAGNOSES: 1. Influenza B. 2. Pneumonia with sputum positive for pseudomonas and pneumococcal antigen positive. 3. Chronic obstructive pulmonary disease exacerbation secondary to the above. 4. Dysphagia. 5. Ditts-ha-lolcgbp kidney injury. 6. Delirium. SECONDARY DIAGNOSES: 1. Type 2 diabetes. 2. Hypertension. 3. History of cerebrovascular accident. 4. History of gastrointestinal bleed. 5. Coronary artery disease, status post stents to circumflex and RCA in 2013. 6. Prostate cancer. 7. Diabetic neuropathy. 8. Aortic aneurysm. 9. Status post appendectomy. 10. Status post tonsillectomy. 11. Status post prostatectomy. 12. Dementia. MEDICATION LIST: 1. Acetaminophen 500 mg p.o. q.6 hours p.r.n. for pain or fever. 2. Albuterol HFA 2 puffs inhaled q.4 hours p.r.n. for shortness of breath and wheezing. 3. Vitamin C 500 mg p.o. daily. 4. Aspirin 81 mg p.o. daily. 5. Atorvastatin 80 mg p.o. at bedtime. 6. Calcium carbonate 1000 mg p.o. daily. 7. Cholecalciferol 1000 units p.o. daily. 8. Clopidogrel 75 mg p.o. q.a.m. 9. Ferrous sulfate 65 mg p.o. daily. 10. Hydrochlorothiazide 25 mg p.o. q.a.m. 11. Lantus 26 units subcutaneously at bedtime. 12. Lispro sliding scale as follows: Fingersticks 131 to 150 take 1 unit, 151 to 200 take 2 units, 201 to 250 take 4 units, 251 to 300 take 6 units, 301 to 350 take 8 units, 351 to 400 take 10 units, greater than 400, to call MD. 13. Lansoprazole 30 mg p.o. daily. 14. Losartan 50 mg p.o. at bedtime. 15. Melatonin 6 mg p.o. at bedtime as needed for sleep. 16. Metoprolol tartrate 25 mg p.o. b.i.d. with meals. 17. Dulera 200/5 MDI 2 puffs inhaled b.i.d. 18. Montelukast 10 mg p.o. at bedtime. 19. Potassium chloride 10 mEq p.o. daily. 20. VESIcare 10 mg p.o. q.a.m. New Medications: 1. Guaifenesin 5 mL p.o. q.4 hours p.r.n. for cough. 2. Risperdal 0.5 mg p.o. at bedtime as needed for agitation. Glipizide was discontinued. HOSPITAL COURSE: Mr. Simmons is an 88-year-old gentleman with past medical history as stated above who presented to the emergency room on 12/27/18 with 2 days of cough and altered mental status. For more details about his presentation, I refer you to his history and physical. Influenza B / Pneumonia: in the emergency department, he was found to be influenza B positive and also found to have a right lower lobe infiltrate. He was started on Tamiflu and antibiotics empirically. Sputum culture grew Pseudomonas aeruginosa and pneumonococcal antigen was positive in the urine. It is unclear which one of those was the source of his pneumonia, maybe even both. For that reason, he was treated with 7 days of cefepime. There is also concern for dysphagia and aspiration. He is doing well with nectar thick liquids and may benefit of further Speech pathology therapy. COPD exacerbation: he also had COPD exacerbation secondary to pneumonia that was treated with steroids and bronchodilators. His steroids were tapered quickly due to hyperglycemia and agitation and confusion. He was continued on bronchodilators and inhaled steroids. Dementia: the patient has a history of dementia and he was found to be delirious while in the hospital, secondary to his pneumonia. He has used Risperdal as needed for agitation and his mental status is close to his baseline , especially when his family is present. LELO: on admission he was found to have a creatinine of 1.4, likely pre renal in the setting of dehydration. HCTZ was held, his renal function has normalized, but as his continues to improve, he may require diuretics again. He had progressive improvement of his condition and was found to have rehab needs. He was offered a bed at [facility] for subacute rehab and he is medically stable to be discharged today. PHYSICAL EXAMINATION: Vital Signs: Temperature 98.2, heart rate 77, respiratory rate 16, oxygen saturation 99% on room air, blood pressure is 150/ 84. General: The patient is a pleasantly confused elderly gentleman, sitting up in chair, in no acute distress. CVS: Normal S1 and S2. Regular rate and rhythm. Chest: Breath sounds bilaterally with right base crackles. Abdomen: Soft. Bowel sounds are present. Neuro: He is alert and oriented x2, self and place, able to move all 4 extremities. DIET: Heart-healthy, consistent carb diet with nectar thick liquids. Fingersticks with meals. ACTIVITY: Continue PT and OT as tolerated. DISPOSITION: To [facility]. STATUS WHILE IN THE HOSPITAL: Inpatient. CONDITION AT THE TIME OF DISCHARGE: Fair. Please keep in mind this is a summarized version of this patient's hospital stay. If you need more information, please feel free to call me at [phone] or please obtain the full medical record. This discharge summary will be used as History and Physical at [facility]. TIME SPENT: Approximately 45 minutes were spent on this discharge. [id number]/CPS #: [id number] MARCELO
[2019-01-05] MEDS: Cefepime 2 GM in Dextrose(*) 2 GM/50 ML BAG IV SCH (01:42)
[2019-01-05] MEDS: Heparin VIAL(*) 5000 UNITS/ML VIAL (FIVE THOUSAND) SUBCUT SCH (05:09)
[2019-01-05] MEDS: Mometasone/Formoter 200/5 MDI INH SCH (07:08)
[2019-01-05 07:53] VITALS: BP 140/72
[2019-01-05] MEDS: Pantoprazole TAB * 40 MG TAB PO SCH (08:28)
[2019-01-05] MEDS: Calcium Carbonate CHEW TAB* 500 MG (TUMS) PO SCH (08:28)
[2019-01-05] MEDS: Ascorbic Acid TAB* 500 MG PO SCH (08:28)
[2019-01-05] MEDS: Ferrous Sulfate TAB* 325 MG PO SCH (08:29)
[2019-01-05] MEDS: Potassium Chlor TAB* 20 MEQ TAB.ER PO SCH (08:29)
[2019-01-05] MEDS: Metoprolol Tartrate TAB* 25 MG PO SCH (08:29)
[2019-01-05] MEDS: Aspirin EC TAB* 81 MG TAB.EC PO SCH (08:29)
[2019-01-05] MEDS: Clopidogrel TAB* 75 MG PO SCH (08:29)
[2019-01-05] MEDS: Insulin LISPRO* 1 UNITS UNIT SUBCUT SCH (09:12)
== END 2019-01-05 11:10 | DRG 178 ==
LOC: ED 09:18 → MED 13:15 → OBSVTOIN 12-28 10:00 → MED 12-30 15:23
PROVIDERS: ADMIT Internal Medicine; ATTEND Internal Medicine
DX: J15.1 Pneumonia due to Pseudomonas (principal); J44.1 Chronic obstructive pulmonary disease with (acute) exacerbation; J44.0 Chronic obstructive pulmonary disease with (acute) lower respiratory infection; N17.9 Acute kidney failure, unspecified; F05 Delirium due to known physiological condition; M84.452A Pathological fracture, left femur, initial encounter for fracture; J13 Pneumonia due to Streptococcus pneumoniae; E11.22 Type 2 diabetes mellitus with diabetic chronic kidney disease; J10.08 Influenza due to other identified influenza virus with other specified pneumonia; E11.40 Type 2 diabetes mellitus with diabetic neuropathy, unspecified; I12.9 Hypertensive chronic kidney disease with stage 1 through stage 4 chronic kidney disease, or unspecified chronic kidney disease; I71.9 Aortic aneurysm of unspecified site, without rupture; R13.10 Dysphagia, unspecified; E78.00 Pure hypercholesterolemia, unspecified; M16.0 Bilateral primary osteoarthritis of hip; M19.042 Primary osteoarthritis, left hand; M19.041 Primary osteoarthritis, right hand; H91.90 Unspecified hearing loss, unspecified ear; F03.90 Unspecified dementia, unspecified severity, without behavioral disturbance, psychotic disturbance, mood disturbance, and anxiety; Z86.73 Personal history of transient ischemic attack (TIA), and cerebral infarction without residual deficits; Z88.8 Allergy status to other drugs, medicaments and biological substances; Z91.013 Allergy to seafood; Z85.46 Personal history of malignant neoplasm of prostate; Z79.82 Long term (current) use of aspirin; Z79.02 Long term (current) use of antithrombotics/antiplatelets; Z79.4 Long term (current) use of insulin; I25.2 Old myocardial infarction; Z95.5 Presence of coronary angioplasty implant and graft; Z83.3 Family history of diabetes mellitus; Z82.49 Family history of ischemic heart disease and other diseases of the circulatory system; Z87.11 Personal history of peptic ulcer disease; Z97.4 Presence of external hearing-aid; Z87.442 Personal history of urinary calculi
CPT/HCPCS: 36415; 70450; 71046; 80048; 80053; 82306; 82947; 83605; 83690; 83735; 83880; 84484; 85025; 85610; 85730; 86140; 87070; 87077; 87186; 87205; 87641; 87651; 87899; 93005; 94640; 99285; A9270-GY; G8978-GP-CL; G8979-GP-CK; G8987-GO-CL; G8988-GO-CJ; J0360; J0692; J0696; J1644; J2543; J3475; J7512

== ENCOUNTER 2019-09-30 22:00 | Inpatient (IN) | payer MEDICARE ==
--- NOTE | 2019-09-30 22:10 | ED ---
Altered Mental Status - HPI Summary HPI Summary: Patient is an 87 year old male with a Hx of DM and COPD brought in by EMS presenting to [facility] with a chief complaint of altered mental status. He has a Hx of diabetes and was not eating today. He was unresponsive and EMS was able to wake him up after 2-3 minutes. Patients O2 sat was 77% per EMS. EMS states he was febrile. Patient denies SOB. He is coughing in the room. His states he has been coughing for a couple of weeks. 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 requested full resuscitation efforts if needed. Medications reviewed. Allergies noted. - History Of Current Complaint Stated Complaint: UPPER RESPIRATORY WHEEZING PER EMS Hx Obtained From: Patient Timing: Lasting Days - Allergies/Home Medications Allergies/Adverse Reactions: Allergies Allergy/AdvReac Type Severity Reaction Status Date / Time baicalin [From Limbrel] Allergy Severe Swelling Verified 05/31/19 11:18 Of Face,Lips,& Throat catechin [From Limbrel] Allergy Severe Swelling Verified 05/31/19 11:18 Of Face,Lips,& Throat haloperidol Allergy Severe See Comment Verified 05/31/19 11:18 pregabalin Allergy See Comment Verified 05/31/19 11:18 tuna oil Allergy Swelling Verified 05/31/19 11:18 Of Face,Lips,& Throat captopril AdvReac Coughing Verified 05/31/19 11:18 Home Medications: Home Medications Cholecalciferol TAB* [Vitamin D TAB*] 1,000 unit PO DAILY 09/30/19 [History Confirmed 09/30/19] Hydrochlorothiazide TAB* [Hydrodiuril TAB*] 25 mg PO DAILY 09/30/19 [History Confirmed 09/30/19] Metoprolol Tartrate TAB* [Lopressor TAB*] 25 mg PO BID 09/30/19 [History Confirmed 09/30/19] Oxybutynin XL TAB* [Ditropan XL TAB*] 10 mg PO DAILY 09/30/19 [History Confirmed 09/30/19] Potassium Chloride [Klor-Con M20] 20 meq PO DAILY 09/30/19 [History Confirmed ] glipiZIDE TAB.XL* [Glucotrol XL*] 2.5 mg PO DAILY 09/30/19 [History Confirmed ] PMH/Surg Hx/FS Hx/Imm Hx Endocrine/Hematology History: Reports: Hx Anticoagulant Therapy, Hx Blood Transfusions, Hx Diabetes, Hx Unexplained Bleeding Denies: Hx Anemia Cardiovascular History: Reports: Hx Angina, Hx Coronary Artery Disease, Hx Hypercholesterolemia, Hx Hypertension, Hx Myocardial Infarction, 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 Denies: Hx Congestive Heart Failure, Hx Pacemaker/ICD Respiratory History: Reports: Hx Asthma, Hx Chronic Obstructive Pulmonary Disease (COPD), Hx Pneumonia, Other Respiratory Problems/Disorders - PNEUMONIA GI History: Reports: Hx Gastrointestinal Bleed - 10/2016, Other GI Disorders - Esophagus ulcers, GI bleed History: Reports: Hx Kidney Stones, Other Problems/Disorders - Prostate CA Denies: Hx Renal Disease Musculoskeletal History: Reports: Hx Arthritis - HIPS/ HANDS Sensory History: Reports: Hx Cataracts, Hx Contacts or Glasses - near sighted, Hx Deafness - left ear, Hx Hearing Aid - hearing aide in left ear currently, Hx Hearing Problem, Other Sensory Impairments Denies: Hx Glaucoma, Hx Legally Blind, Hx Macular Degeneration, Hx Vision Problem Opthamlomology History: Reports: Hx Cataracts, Hx Contacts or Glasses - near sighted, Other Sensory Impairments Denies: Hx Glaucoma, Hx Legally Blind, Hx Macular Degeneration, Hx Vision Problem Neurological History: Reports: Hx Dementia - Mild Psychiatric History: Denies: Hx Anxiety, Hx Panic Disorder - Cancer History Cancer Type, Location and Year: prostate Hx Chemotherapy: Yes - 2006 Hx Radiation Therapy: Yes Hx Palliative Cancer Treatment: No - Surgical History Surgery Procedure, Year, and Place: YOUNG CHILD TONSILLECTOMY [facility]. 1972 RUPTURED APPENDIX [facility]. 2003 2 CARDIAC STENTS STRONG. 2005 PROSTATE [facility]. 2008 BILATERAL TUBES IN EARS [facility] Hx Anesthesia Reactions: No Infectious Disease History: Denies: Hx Clostridium Difficile, Hx Hepatitis, Hx Human Immunodeficiency Virus (HIV), Hx of Known/Suspected MRSA, Hx Shingles, Hx Tuberculosis, Hx Known/ Suspected VRE, Hx Known/Suspected VRSA - Family History Known Family History: Positive: Cardiac Disease - Social History Alcohol Use: Rare Hx Substance Use: No Substance Use Type: Reports: None Hx Tobacco Use: Yes Smoking Status (MU): Former Smoker Type: Cigarettes Have You Smoked in the Last Year: No Review of Systems Positive: Fever, Other - Decreased appetite Positive: Cough, Other - Hypoxia. Negative: Shortness Of Breath Neurological: Other - Unresponsiveness All Other Systems Reviewed And Are Negative: Yes Physical Exam - Summary Physical Exam Summary: Constitutional: Well-developed, Well-nourished, Alert. (-) Distressed Skin: Warm, Dry HENT: Normocephalic; Atraumatic Eyes: Conjunctiva normal Neck: Musculoskeletal ROM normal neck. (-) JVD, (-) Stridor, (-) Tracheal deviation Cardio: Rhythm regular, rate tachycardic, Heart sounds normal; Intact distal pulses. Radial pulses are 2+ and symmetric. (-) Murmur Pulmonary/Chest wall: Effort normal. (-) Respiratory distress, (+) Wheezes bilaterally, (-) Rales Abd: Soft. (-) Tenderness, (-) Distension, (-) Guarding, (-) Rebound Musculoskeletal: (-) Edema Lymph: (-) Cervical adenopathy Neuro: Alert, Oriented x3, Strength normal, Cranial nerves II-XII are grossly intact. (-) Dysmetria, (-) Nystagmus, (-) Ataxia by finger to nose testing, (-) Sensory deficit. Psych: Mood and affect Normal Triage Information Reviewed: Yes Vital Signs On Initial Exam: Temp Pulse Resp BP Pulse Ox 98.7 F 129 31 137/85 96 09/30/19 22:07 09/30/19 23:00 09/30/19 23:12 09/30/19 23:12 09/30/19 23:00 Vital Signs Reviewed: Yes Procedures - Sedation Patient Received Moderate/Deep Sedation with Procedure: No Diagnostics - Laboratory Result Diagrams: 09/30/19 22:23 09/30/19 22:23 Lab Statement: Any lab studies that have been ordered have been reviewed, and results considered in the medical decision making process. - Radiology CXR Radiology Interpretation Completed By: ED Physician Summary of Radiographic Findings: Suspected left lower lobe pneumonia. Pending official radiologist report. - CT CTA Chest CT Interpretation Completed By: Radiologist Summary of CT Findings: 1. No pulmonary emboli. 2. Left lower lobe pneumonia. ED Provider has reviewed this report. - EKG 1 Cardiac Rate: Tachycardia - 127 BPM EKG Rhythm: Sinus Tachycardia Summary of EKG Findings: RBBB, ST elevations in aVR. Unchanged from 05/31/19. Pending official radiologist report. 2219 Cardiac Rate: Tachycardia - 127 BPM EKG Rhythm: Sinus Tachycardia Summary of EKG Findings: RBBB, ST elevations in aVR. Unchanged from 05/31/19. Pending official radiologist report. 2230 Cardiac Rate: Tachycardia - 124 BPM EKG Rhythm: Sinus Tachycardia Summary of EKG Findings: RBBB, ST elevations in aVR. No changes from initial EKG. Altered Mental Statu Course/Dx - Course Course Of Treatment: Patient is here with left lower lobe pneumonia. Patient was hypoxic and started on a liters nasal cannula. Patient's had cough and fever. Patient had blood cultures obtained. Patient had blood work performed which showed a lactate of 3.0 and a troponin of 0.04. Patient is given 2 L IV fluid with mild improvement in his lactate to 2.8. Patient had a chest x-ray which did not show any obvious pneumonia so a CTA was performed which showed a left lower lobe pneumonia. Patient was given Rocephin and azithromycin. Patient is admitted to the hospitalist. - Diagnoses Provider Diagnoses: Left lower lobe pneumonia Discharge ED - Sign-Out/Discharge Documenting (check all that apply): Patient Departure - Admission, accepted by Dr. Kumar, Hospitalist - Discharge Plan Condition: Stable Disposition: ADMITTED TO [facility] - Billing Disposition and Condition Condition: STABLE Disposition: Admitted to [facility] - Attestation Statements Document Initiated by Donis: Yes Documenting Tonieibe: Maurisio Limon Provider For Whom Donis is Documenting (Include Credential): Orestes Alvarez MD Scribe Attestation: Maurisio Cadet, scribed for Orestes Alvarez MD on 10/01/19 at 0329. Scribe Documentation Reviewed: Yes Provider Attestation: The documentation as recorded by the Maurisio herman accurately reflects the service I personally performed and the decisions made by , Orestes Alvarez MD Status of Scribe Document: Viewed
--- OUTSIDE RECORDS SUMMARY | 2019-09-30 22:12 | XMS REPORT | Continuity of Care Document ---
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 Onset: 12/20/2011 Coronary arteriosclerosis Stu Nicholas M.D. Onset: 12/20/2011 Benign essential hypertension Stu Nicholas M.D. Onset: 12/20/2011 Right bundle branch block Stu Nicholas M.D. Onset: 12/20/2011 Hyperlipidemia Stu Nicholas M.D. Onset: 06/30/2013 Dyspnea Stu Nicholas M.D. Onset: 03/07/2014 Type 2 diabetes mellitus with ulcer Paddy Bryan MD Onset: 11/17/2017 Cellulitis of foot Paddy Bryan MD Onset: 11/17/2017 Abrasion and/or friction burn of lower Paddy Bryan MD Onset: 12/19/2017 limb without infection Contusion of knee Paddy Bryan MD Onset: 12/19/2017 Fall Paddy Bryan MD Onset: 04/10/2018 Chronic obstructive pulmonary disease Manisha Carmona D.O. Onset: 05/03/2018 with (acute) exacerbation Type 2 diabetes mellitus Manisha Carmona D.O. Onset: 05/03/2018 Long-term current use of insulin Manisha Carmona D.O. Onset: 05/03/2018 Type II diabetes mellitus uncontrolled Knady Ramirez NP Onset: Open wound of foot, excluding toe(s) Paddy Bryan MD Onset: 08/14/2018 Social History Type Date Description Comments Sex Unknown Tobacco Use Start: Unknown End: Former Cigarette Smoker pt smoked for 7 to Unknown 1 Pack Daily 8 years-pt quit 63 years ago ETOH Use Denies alcohol use Tobacco Use Start: Unknown End: Patient is a former Unknown smoker Recreational Drug Use Denies Drug Use Smoking Status Reviewed: 02/15/19 Patient is a former smoker Exercise Type/Frequency Exercises regularly Allergies, Adverse Reactions, Alerts Active Allergies Reaction Severity Comments Date Captopril cough 02/25/2008 TUNA 08/21/2012 Lyrica 03/07/2014 Limbrel 03/07/2014 Haloperidol 11/27/2016 Medications Active Medications SIG Qnty Indications Ordering Date Provider Glipizide XL 1 by mouth every 90tabs Ed Blevins 04/21/2014 2.5mg day as directed MD Caro Tablets ER 24HR Tums two qd Qutaybcresencio S. 02/25/2008 500mg Chewtabs Cirilo Nicholas HCTZ 1 tab by mouth 90units Qutaybcresencio S. 02/25/2008 25mg. daily Cirilo Nicholas Nitroquick 1 S/L prn Chest 25tabs Qutaybcresencio S. 02/25/2008 0.4mg Pain, Q 5 Min. Up Cirilo Nicholas Tablets Sub To 3 Tabs Oxybutynin Chloride 1 by mouth every Unknown ER day 10mg Tablets ER 24HR Melatonin 1 cap at bedtime Unknown 5mg Capsules Risperidone 1 tablet by mouth Unknown 0.5mg at bedtime Tablets Klor-Con M20 1 by mouth every Unknown 20Meq day in morning Tablets ER Ferrous Sulfate 1 by mouth every Unknown 65mg day Tablets Vitamin C 1 by mouth every Unknown 500mg day Capsules Vesicare 1 daily Unknown 10mg Tablets Dulera 2 puff twice a Unknown 200-5mcg/Act day Aerosol Losartan Potassium 1 tab by mouth Unknown 50mg every day Tablets Lantus as directed 28 Unknown 100Unit/ML units at dinner Solution Atorvastatin Calcium 1 by mouth every Unknown day at 5pm 80mg Tablets Lansoprazole 1 by mouth every Unknown 30mg day Capsules DR Ventolin HFA 2 puffs by mouth Unknown four times a day 108(90Base) mcg/Act as needed Aerosol Acetaminophen ER 1 tab by mouth q6 Unknown 650mg hours as needed Tablets ER pain or fever Albuterol Sulfate 4 times a day as Unknown needed Nebulizer and inhaler Vitamin D3 1 by mouth every 30caps Unknown 1000Iu day Capsules Metoprolol Tartrate 1/2 tab by mouth Unknown twice a day 50mg Tablets Aspirin 1 by mouth every Unknown 81mg Tablets day Singulair 1 po qd in pm 30tabs Unknown 10mg Tablets Plavix 1 po qd 90tabs Unknown 75mg Tablets Immunizations Description No Information Available Vital Signs Date Vital Result Comment 03/04/2019 1:13pm Height 70 inches 5'10" Weight 184.38 lb Clothes/shoes Heart Rate 82 /min Radial BP Systolic Sitting 148 mmHg Rue reg cuff BP Diastolic Sitting 80 mmHg Rue reg cuff BP Systolic Standing 144 mmHg Lue reg cuff BP Diastolic Standing 80 mmHg Lue reg cuff BP Systolic Lying Down 152 mmHg Lue home BP Cuff BP Diastolic Lying Down 86 mmHg Lue home BP Cuff BMI (Body Mass Index) 26.5 kg/m2 02/15/2019 2:55pm Height 70 inches 5'10" Weight 184.00 lb with shoes Heart Rate 80 /min BP Systolic Sitting 104 mmHg right arm (regular cuff) BP Diastolic Sitting 60 mmHg right arm (regular cuff) BMI (Body Mass Index) 26.4 kg/m2 Ejection Fraction 55-60% Echocardiogram 08/17/18 Results Description No Information Available Procedures Description No Information Available Medical Devices Description No Information Available Encounters Type Date Location Provider Dx Diagnosis Office Visit 03/04/2019 [facility] Nurse Visit cc I10 Essential ( primary) 1:00p hypertension Office Visit 02/15/2019 [facility] Angelina Dexter, I25.10 Athscl heart 3:00p N.P. 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 03/04/2019 I10 Essential (primary) hypertension Nurse Visit cc 02/15/2019 I25.10 Atherosclerotic heart disease of [place] Angelina Larisa Dexter, N.P. coronary artery with 02/15/2019 I10 Essential (primary) hypertension Angelina Dexter, N.P. 02/15/2019 E11.65 Type 2 diabetes mellitus with Angelina S. Isacc, N.P. hyperglycemia 02/15/2019 F03.91 Unspecified dementia with behavioral Angelina S. Isacc, N.P. disturbance Plan of Treatment 01/28/2019 - Silverio Caballero, LION44.9 Chronic obstructive pulmonary disease, unspecifiedComments:Exacerbation resolved. Was provoked by Flu B infection, continue PRN albuterol inhaler, Singulair and Dulera at home.E11.9 Type 2 diabetes mellitus without npowjpkwnazpuG76.10 Atherosclerotic heart disease of [place] coronary artery withComments:Continue Lipitor, Plavix and Aspirin for Secondary Prevention of [place].I10 Essential (primary) hypertensionComments: Normotensive, Continue Losartan, HCTZ, GdgmxvogxfG70.91 Unspecified dementia with behavioral disturbanceComments:Started Risperdal for Behavioral Disturbance. Continue, reevaluate need shortly with Dr. Blevins whenback in home environment. Functional Status Description No Information Available Mental Status Description No Information Available Referrals Description No Information Available
--- OUTSIDE RECORDS SUMMARY | 2019-09-30 22:12 | XMS REPORT | Continuity of Care Document ---
:1930 External Reference #:[id number] Author Name Stu Nicholas M.D. 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 Medicine Problems Active Problems Provider Date Electrocardiogram [...] Onset: 05/03/2018 Type II diabetes mellitus uncontrolled Kandy Ramirez NP Onset: Open wound of foot, excluding toe(s) Paddy Bryan MD Onset: 08/14/2018 Social History Type Date Description Comments Sex Unknown Tobacco Use Start: Unknown End: Former Cigarette Smoker pt smoked for 7 to Unknown 1 Pack Daily 8 years-pt quit before 1958 ETOH Use Denies alcohol use Tobacco Use Start: Unknown End: Patient is a former Unknown smoker Recreational Drug Use Denies Drug Use Smoking Status Reviewed: 08/10/19 Patient is a former smoker Exercise Type/Frequency Exercises regularly Allergies, Adverse Reactions, Alerts Active Allergies Reaction Severity Comments Date Captopril cough 02/25/2008 TUNA 08/21/2012 Lyrica 03/07/2014 Limbrel 03/07/2014 Haloperidol 11/27/2016 Medications Active Medications SIG Qnty Indications Ordering Date Provider Glipizide XL 1 by mouth every 90tabs Ed Blevins 04/21/2014 2.5mg day as savannah Elizondo MD Tablets ER 24HR Tums two qd Qutaybeh S. 02/25/2008 500mg Chewtabs Cirilo Nicholas HCTZ 1 tab by mouth 90units Qutaybcresencio S. 02/25/2008 25mg. daily Cirilo Nicholas Nitroquick 1 S/L prn Chest 25tabs Qutaybeh S. 02/25/2008 0.4mg Pain, Q 5 Min. [...] by mouth every Unknown 500mg day Capsules Dulera 2 puff twice a Unknown 200-5mcg/Act day Aerosol Losartan Potassium 1 tab by mouth Unknown 50mg every day Tablets Lantus as directed 30 Unknown 100Unit/ML units at dinner Solution Atorvastatin [...] Available Vital Signs Date Vital Result Comment 08/10/2019 10:51am Height 70 inches 5'10" Weight 183.00 lb Heart Rate 68 /min left radial BP Systolic Sitting 112 mmHg ule reg cuff BP Diastolic Sitting 64 mmHg ule reg cuff BMI (Body Mass Index) 26.3 kg/m2 Ejection Fraction 55-60% 08/17/18 03/04/2019 1:13pm Height 70 inches 5'10" Weight [...] Cuff BMI (Body Mass Index) 26.5 kg/m2 Results Description No Information Available Procedures Date Code Description Status 08/10/2019 82182 EKG Tracing & Interpretation Completed Medical Devices Description No Information Available Encounters Type Date Location Provider Dx Diagnosis Office Visit 03/04/2019 [facility] Nurse Visit cc I10 Essential ( primary) 1:00p hypertension Office Visit 02/15/2019 [facility] Angelina Dexter, I25.10 Athscl heart 3:00p N.P. 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 08/10/2019 I25.10 Atherosclerotic heart disease of Stu Nicholas M.D. [place] coronary artery with 08/10/2019 J44.9 Chronic obstructive pulmonary disease, Stu Nicholas M.D. 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 03/04/2019 I10 Essential (primary) hypertension Stu Nicholas M.D. 03/04/2019 I10 Essential (primary) hypertension Nurse Visit cc 02/15/2019 I25.10 Atherosclerotic heart disease of Angelina Dexter, N.PAngela [place] coronary artery with 02/15/2019 I10 Essential (primary) hypertension Angelina Dexter, N.P. 02/15/2019 E11.65 Type 2 diabetes mellitus with Angelina Dexter, N.P. hyperglycemia 02/15/2019 F03.91 Unspecified dementia with behavioral Angelina Dexter, N.P. disturbance Plan of Treatment Future Appointment(s):02/16/2020 10:30 am - Angelina Dexter N.P. 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
[2019-09-30 22:34] LABS: ABS Lymphocytes 0.9 10^3/ul (1.0-4.8); ABS Monocytes 0.4 10^3/ul (0-0.8); ABS Neutrophils 7.7 10^3/ul (1.5-7.7); Eosinophil % 0.4 %; Hematocrit 41 % (42-52); Hemoglobin 14.6 g/dL (14.0-18.0); Lymphocyte % 10.2 %; Mean Corpuscular HGB Conc 36 g/dL (31-36); Mean Corpuscular Hemoglobin 32 pg (27-31); Mean Corpuscular Volume 88 fL (80-94); Mean Platelet Volume 8.8 fL (7.4-10.4); Nucleated Red Blood Cells % 0.1; Platelet Count 200 10^3/uL (150-450); Red Blood Count 4.64 10^6 /uL (4.18-5.48); Red Cell Distribution Width 14 % (10-15); White Blood Count 9.2 10^3/uL (3.5-10.8)
[2019-09-30 22:51] LABS: ALT 37 U/L (7-52); AST 36 U/L (13-39); Albumin 4.3 g/dL (3.2-5.2); Albumin/Globulin Ratio 1.5 (1-3); Alkaline Phosphatase 131 U/L (34-104); Anion Gap 12 mmol/L (2-11); BUN/Creatinine Ratio 16.5 (8-20); Blood Urea Nitrogen 23 mg/dL (6-24); C Reactive Protein 45.61 mg/L (<8.01); CO2 Carbon Dioxide 20 mmol/L (22-32); Calcium 9.5 mg/dL (8.6-10.3); Chloride 102 mmol/L (101-111); EGFR African American 58.6 (>60); EGFR Non-African American 48.4 (>60); Globulin 2.8 g/dL (2-4); Glucose 298 mg/dL (70-100); Potassium 4.9 mmol/L (3.5-5.0); Sodium 134 mmol/L (135-145); Total Protein 7.1 g/dL (6.4-8.9)
[2019-09-30 22:54] LABS: Troponin I 0.04 ng/mL (<0.03)
[2019-09-30] MEDS ORDERED: Iodixanol* (CONTRAST) 320 MG/ML 100 ML SDV IV ONE (22:56)
[2019-09-30] MEDS ORDERED: NS 0.9% 1000 ML** 1,000 ML IV ONE (23:01)
[2019-09-30] MEDS ORDERED: Azithromycin 500 mg/250 ml NS 500 MG/250 ML BAG IVPB ONE (23:07)
[2019-09-30] MEDS ORDERED: cefTRIAXone(*) 1 GM in NS 0.9% 50 ML* 50 ML IVPB ONE (23:07)
[2019-09-30] MEDS ORDERED: Acetaminophen SUPP* 650 MG SUPP PR ONE (23:47)
[2019-10-01] MEDS: NS 0.9% 1000 ML** 1,000 ML IV ONE ×2 (00:03→00:04)
[2019-10-01] MEDS ORDERED: Albuterol 2.5 MG/3 ML NEB.SOL* (0.083%) INH ONE (00:18)
[2019-10-01 00:53] LABS: Troponin I 0.03 ng/mL (<0.03)
[2019-10-01 01:21] LABS: Influenza A Molecular NEGATIVE (Negative); Influenza B Molecular NEGATIVE (Negative)
[2019-10-01] MEDS ORDERED: Albuterol/Ipratropium NEB.SOL* Albuterol 2.5 MG/Ipratropium 0.5 MG 3 ML INH PRN (02:38)
[2019-10-01] MEDS: Albuterol/Ipratropium NEB.SOL* Albuterol 2.5 MG/Ipratropium 0.5 MG 3 ML INH SCH ×4 (03:05→20:07)
[2019-10-01] MEDS: Enoxaparin(*) 40 MG/0.4 ML SYR SUBCUT SCH (03:13)
[2019-10-01] MEDS: methylPREDNISolone SOD 40 MG* 1 ML VIAL IV SCH ×2 (03:13→14:07)
[2019-10-01] MEDS: NS 0.9% 1000 ML** 1,000 ML IV SCH ×3 (04:08→21:04)
[2019-10-01 06:20] LABS: ABS Lymphocytes 0.6 10^3/ul (1.0-4.8); ABS Monocytes 0.8 10^3/ul (0-0.8); ABS Neutrophils 11.5 10^3/ul (1.5-7.7); Eosinophil % 0.1 %; Hematocrit 36 % (42-52); Hemoglobin 12.1 g/dL (14.0-18.0); Lymphocyte % 4.7 %; Mean Corpuscular HGB Conc 34 g/dL (31-36); Mean Corpuscular Hemoglobin 31 pg (27-31); Mean Corpuscular Volume 90 fL (80-94); Mean Platelet Volume 8.7 fL (7.4-10.4); Platelet Count 151 10^3/uL (150-450); Red Blood Count 3.97 10^6 /uL (4.18-5.48); Red Cell Distribution Width 14 % (10-15); White Blood Count 12.9 10^3/uL (3.5-10.8)
[2019-10-01 06:32] LABS: Potassium 4.6 mmol/L (3.5-5.0)
[2019-10-01 06:37] LABS: BUN/Creatinine Ratio 18.9 (8-20); EGFR African American 65.1 (>60); EGFR Non-African American 53.8 (>60)
[2019-10-01] MEDS: Mometasone/Formoter 200/5 MDI INH SCH ×2 (07:56→20:11)
[2019-10-01] MEDS: Metoprolol Tartrate TAB* 25 MG PO SCH ×2 (08:23→21:04)
[2019-10-01] MEDS: Clopidogrel TAB* 75 MG PO SCH (08:23)
[2019-10-01] MEDS: Aspirin EC TAB* 81 MG TAB.EC PO SCH (08:23)
[2019-10-01] MEDS ORDERED: Dextrose 50% VIAL 50 ml IV PUSH PRN (08:31)
[2019-10-01] MEDS ORDERED: Insulin LISPRO* 1 UNITS UNIT SUBCUT ONE (08:31)
[2019-10-01] MEDS ORDERED: Pantoprazole IV* 40 MG IV SCH (09:00)
--- NOTE | 2019-10-01 09:21 | HP ---
CC: Dr. Ed Blevins* ADMISSION HISTORY AND PHYSICAL: DATE OF ADMISSION: 10/01/19 PRIMARY CARE PHYSICIAN: Dr. Ed Blevins CHIEF COMPLAINT: Cough and shortness of breath. HISTORY OF PRESENT ILLNESS: This is an 88-year-old gentleman with past medical history significant for hypertension, coronary artery disease, status post 2 MIs with total of 5 stents, history of stroke with severe left-sided weakness which caused the patient to be more confused and also had previous history of swallowing difficulty, brought in today due to worsening shortness of breath. 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 The patient was in his usual state of health; however, for the last 2 to 3 days, he has had decreased p.o. intake, cough, productive of whitish frothy sputum and today he also turned red, which concerned the patient's who thought that the patient may have fever, and for the first time in a long time, he also complained that he was having pain with his cough and was also noted to be having severe rigors and chills and has been feeling weak all day. So, the finally decided to call the EMS to bring him in for evaluation, but there is no episode of swallowing difficulty in the recent few days that could notice causing the patient's breathing difficulty. PAST MEDICAL HISTORY: Type 2 diabetes, hypertension, history of stroke with left- sided weakness and also some aphasia and swallowing difficulty in the past , but most of his symptoms have resolved, but he has developed some mild dementia. He is also very hard of hearing even with his hearing aid, so communication is very difficult at baseline with him. History of GI bleed, history of coronary disease, status post 2 infarctions, first infraction the patient had 2 stents and then the second one had 3 stents placed. History of prostate cancer, status post resection and radiation therapy, which caused him to have diarrhea, but that has since resolved, history of COPD/asthma, severe diabetic neuropathy, aortic aneurysm. PAST SURGICAL HISTORY: He has had an appendectomy, tonsillectomy, prostatectomy , circumcision performed in 2013, stent placement both in 2003 and 2013, history of broken ankle which was just treated with some casting as this was nondisplaced and history of cataract surgery. HOME MEDICATIONS: The patient is on multiple home medications includin. Oxybutynin 10 mg oral daily. 2. Proventil 4 mg p.o. 4 times a day, 3. Ferrous sulfate 65 mg oral daily. 4. Vitamin C 500 mg oral daily. 5. Ventolin 2 puffs by inhalation q.4 hours p.r.n. 6. Acetaminophen 500 mg q.6 hours p.r.n. 7. Lantus 30 units subcutaneous every evening. 8. Calcium carbonate 1000 mg p.o. b.i.d. 9. Dulera 2 puffs by inhalation b.i.d. 10. Montelukast 10 mg p.o. bedtime. 11. Metoprolol 25 mg p.o. b.i.d. 12. Atorvastatin 80 mg daily. 13. Klor-Con 20 mEq oral daily. 14. Losartan 50 mg every evening. 15. Glucotrol 2.5 mg oral daily. 16. Vitamin D 1000 units oral daily. 17. Hydrochlorothiazide 25 mg oral daily. 18. Clopidogrel 75 mg oral daily every morning. 19. Aspirin 81 mg oral daily every morning. 20. Prevacid 30 mg oral daily. ALLERGIES: The patient is allergic to LIMBREL which causes swelling in his face , TUNA OIL causes swelling in his face, HALDOL caused tardive dyskinesia, PREGABALIN/LYRICA causes tongue burning and CAPTOPRIL causes coughing. FAMILY HISTORY: Mother of coronary artery disease and also had a history of diabetes. Father also had heart disease. SOCIAL HISTORY: He smoked for 10 years, but quit 60 years ago. Rarely drinks alcohol, never had any illicit drug use. 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 He is and his Jelena Simmons is his surrogate decision maker with both daughter and son also being listed as alternative agents for healthcare proxy on the healthcare proxy form. The patient otherwise was listed as full code according to his . REVIEW OF SYSTEMS: Unable to obtain due to the patient's mental status and his baseline nonverbal state and also because he was hard of hearing. PHYSICAL EXAMINATION GENERAL: The patient is arousable and difficult to assess orientation due to both his hearing problem and also due to his baseline dementia. He is baseline minimal verbal status. VITAL SIGNS: Temperature in the ER was recorded at 98.7, heart rate 128, respiration rate 31, saturating 93% on oxygen 3 L. BP was noted to be 131/89. HEAD AND NECK: Atraumatic, normocephalic. Bilateral pupils were reactive. Oral mucosa was dry. Neck supple. No jugular venous distention. LUNGS: The patient has diffuse rhonchi, and a few intermittent wheezes were appreciated. HEART: S1, S2. Regular, tachycardia. ABDOMEN: Obese, soft, nontender. EXTREMITIES: No cyanosis, clubbing, or edema. DIAGNOSTIC STUDIES/LAB DATA: CBC was unremarkable. Coagulation profile shows INR normal at 1.0. Venous blood gas showed normal pH. Comprehensive metabolic panel was showing elevated creatinine at 1.39, minimally decreased sodium at 134 and bicarb minimally decreased at 20. Random glucose elevated at 298. Lactic acid elevated at 3.0 and repeat level was noted to be 2.8. Troponin was 0.04, which improved to 0.03. C-reactive protein elevated at 45. LFTs unremarkable. Influenza A and B were both noted to be negative. CTA of the chest was read as no pulmonary emboli, left lower lobe pneumonia. EKG showed sinus tachycardia now with right bundle-branch block. When compared to his older EKG from May 2019, right bundle-branch block was present, but the heart rate is much more tachycardic today as compared to the May EKG which was at 66. IMPRESSION: This is an [id number] with history of stroke, dementia with diabetes, hypertension, here due to worsening shortness of breath secondary to left lower lobe pneumonia, questionable component of asthma/chronic obstructive pulmonary disease exacerbation, questionable sepsis based on tachycardia and tachypnea. 1. Sepsis secondary to left lower lobe pneumonia. We will start the patient on ceftriaxone and azithromycin to cover for community acquired pneumonia as the patient has not had any antibiotics in the last 6 months. 2. Hypoxic respiratory failure secondary to chronic obstructive pulmonary disease exacerbation from pneumonia. We will start the patient on steroids and nebulizers. 3. Questionable component of dysphagia. We will perform swallowing evaluation. In the meantime, we will keep the patient n.p.o. with the exception of medications. 4. History of diabetes. We will start the patient on insulin sliding scale every 4 hours. Once he passes swallow evaluation, we can change that to a.c. and h.s. 5. History of hypertension. We will hold BP medications until his blood pressure is much more elevated. 6. History of gastrointestinal bleed. We will hold his lansoprazole and convert it to Protonix IV and switch to Protonix p.o. once the patient passes swallow evaluation. 7. History of asthma/chronic obstructive pulmonary disease. Restart his Singulair and Dulera. 8. Acute kidney injury, likely secondary to sepsis/dehydration. We will start the patient on IV hydration. 9. Lactic acidosis secondary to sepsis/dehydration. We will continue with IV hydration. 10. History of coronary artery disease, status post myocardial infarction. Continue with his aspirin and Plavix. 11. History of dyslipidemia. We will hold statin until he passes swallow evaluation. 12. DVT prophylaxis with sequential compression device and subcu Lovenox. 13. Code status. Full code. [id number]/CPS #: [id number] MTDD
[2019-10-01] MEDS: Insulin LISPRO* 1 UNITS UNIT SUBCUT SCH ×3 (12:44→21:04)
--- NOTE | 2019-10-01 13:55 | PN ---
Subjective Date of Service: 10/01/19 Interval History: Mr. Simmons is somewhat difficult to arouse, but is able to wake for a short conversation and he offers no complaints. is at bedside. She thinks he already looks improved from yesterday. Nursing reports hyperglycemia. Family History: Unchanged from Admission Social History: Unchanged from Admission Past Medical History: Unchanged from Admission Objective Active Medications: Albuterol/Ipratropium (Duoneb (Albuterol 2.5 Mg/Ipratropium 0.5 Mg)) 1 neb INH Q4H PRN SOB/WHEEZING Albuterol/Ipratropium (Duoneb (Albuterol 2.5 Mg/Ipratropium 0.5 Mg)) 1 neb INH Q6H [facility] Aspirin (Aspirin Ec Tab*) 81 mg PO QAM LOS Clopidogrel Bisulfate (Plavix Tab*) 75 mg PO QAM LOS Dextrose (Dextrose 50% Vial 50 Ml*) 25 ml IV PUSH .FOR FS < 60 - SS PRN FS < 60 Enoxaparin Sodium (Lovenox(*)) 40 mg SUBCUT Q24H LOS Sodium Chloride (Ns 0.9% 1000 Ml) 1,000 mls @ 125 mls/hr IV PER RATE LOS Azithromycin (Zithromax 500 Mg/250 Ml) 500 mg in 250 mls @ 250 mls/hr IVPB 2200 [facility] Ceftriaxone Sodium 1 gm/ (Sodium Chloride) 50 mls @ 100 mls/hr IVPB 2100 [facility] Insulin Glargine (Lantus(*)) 20 units SUBCUT 1700 [facility] Insulin Human Lispro (Humalog*) 0 units SUBCUT ACHS LOS; Protocol Methylprednisolone Sodium Succinate (Solu-Medrol 40 Mg) 40 mg IV Q12H LOS Metoprolol Tartrate (Lopressor Tab*) 25 mg PO BID LOS Mometasone Furoate/Formoterol Fumar (Dulera 200/5 Mdi*) 2 puff INH BID LOS Montelukast Sodium (Singulair Tab*) 10 mg PO BEDTIME LOS Pantoprazole Sodium (Protonix Iv*) 40 mg IV DAILY LOS Vital Signs - 8 hr 10/01/19 10/01/19 06:30 08:00 Temperature 97.8 F Pulse Rate 82 Respiratory 20 16 Rate Blood Pressure 137/69 (mmHg) O2 Sat by Pulse 96 Oximetry Oxygen Devices in Use Now: Nasal Cannula - 3L Appearance: Elderly male lying in bed in NAD Neck: NL Appearance and Movements; NL JVP, Trachea Midline Respiratory: Symmetrical Chest Expansion and Respiratory Effort, - - Rhonchi throughout L lung, R side diminished Cardiovascular: NL Sounds; No Murmurs; No JVD, RRR Abdominal: NL Sounds; No Tenderness; No Distention Extremities: No Edema Neurological: - - Wakes to touch, oriented to self, very [place] Lines/Tubes/Other Access: Clean, Dry and Intact Peripheral IV Result Diagrams: 10/01/19 06:15 10/01/19 06:15 Assess/Plan/Problems-Billing Assessment: Mr. Simmons is an 88 yo M with PMH of DM2, HTN, dementia, CAD (total of 5 stents) , prostate cancer s/p resection, COPD, asthma, AAA; who presented to the ED with c/o cough and SOB and was found to have LLL pneumonia. - Patient Problems (1) Pneumonia Code(s): J18.9 - PNEUMONIA, UNSPECIFIED ORGANISM Comment: - Presented with 2-3 days of SOB and cough - CTA shows LLL pneumonia - No evidence of aspiration when evaluated by Speech Therapy - Continue azithromycin, ceftriaxone (2) COPD exacerbation Code(s): J44.1 - CHRONIC OBSTRUCTIVE PULMONARY DISEASE W (ACUTE) EXACERBATION Comment: - Secondary to pneumonia - Continue Solu-Medrol, Dulera, Singulair, nebs (3) Acute respiratory failure with hypoxia Code(s): J96.01 - ACUTE RESPIRATORY FAILURE WITH HYPOXIA Comment: - Requiring 3L oxygen to maintain sats - Wean oxygen as tolerated - Continue Solu-Medrol, nebs (4) Sepsis Comment: - Presented on admission with tachycardia and tachypnea; source is pneumonia - Leukocytosis today likely just secondary to steroids - Plan as above (5) Type 2 diabetes mellitus Comment: - Hyperglycemic into the 400s today - A1c pending - Continue Lispro SS; resume Lantus (decreased from home dose) (6) CAD (coronary artery disease) Code(s): I25.10 - ATHSCL HEART DISEASE OF [place] CORONARY ARTERY W/O ANG PCTRS Comment: - With 5 stents (2003 and 2013) - Trop mildly elevated secondary to demand - Continue aspirin, Plavix, metoprolol (7) HTN (hypertension) Code(s): I10 - ESSENTIAL (PRIMARY) HYPERTENSION Comment: - Normotensive - Hold losartan, HCTZ - Continue metoprolol (8) Hypercholesteremia Code(s): E78.0 - PURE HYPERCHOLESTEROLEMIA * DO NOT USE * Comment: - Continue atorvastatin (9) History of CVA (cerebrovascular accident) Code(s): Z86.73 - PRSNL HX OF TIA (TIA), AND CEREB INFRC W/O RESID DEFICITS Comment: - Residual left sided weakness - Continue aspirin, Plavix, atorvastatin (10) Dementia Code(s): F03.90 - UNSPECIFIED DEMENTIA WITHOUT BEHAVIORAL DISTURBANCE Comment : - Supportive care (11) DVT prophylaxis Current Visit: No Status: Acute Comment: - Lovenox (12) Full code status Code(s): Z78.9 - OTHER SPECIFIED HEALTH STATUS Comment: Status and Disposition: Inpatient. Anticipate d/c home with when medically stable, likely 2-3 more days. Attending: Ricarda Kumar
[2019-10-01] MEDS: Atorvastatin* 80 MG TAB PO SCH (16:23)
[2019-10-01] MEDS ORDERED: ALBUTEROL 4 MG PO SCH (17:00)
[2019-10-01] MEDS ORDERED: Insulin GLARGINE(*) 1 UNITS UNIT SUBCUT SCH (17:00)
[2019-10-01] MEDS: Montelukast Sodium TAB* 10 MG PO SCH (21:04)
[2019-10-01] MEDS: cefTRIAXone(*) 1 GM in NS 0.9% 50 ML* 50 ML IVPB SCH (21:04)
[2019-10-01] MEDS: Azithromycin 500 mg/250 ml NS 500 MG/250 ML BAG IVPB SCH (22:30)
[2019-10-02] MEDS: Albuterol/Ipratropium NEB.SOL* Albuterol 2.5 MG/Ipratropium 0.5 MG 3 ML INH SCH ×4 (03:05→20:34)
[2019-10-02] MEDS: methylPREDNISolone SOD 40 MG* 1 ML VIAL IV SCH ×2 (03:16→14:05)
[2019-10-02] MEDS: Enoxaparin(*) 40 MG/0.4 ML SYR SUBCUT SCH (03:20)
[2019-10-02 05:44] LABS: ABS Lymphocytes 0.7 10^3/ul (1.0-4.8); ABS Monocytes 0.6 10^3/ul (0-0.8); ABS Neutrophils 10.7 10^3/ul (1.5-7.7); Hematocrit 33 % (42-52); Hemoglobin 11.1 g/dL (14.0-18.0); Mean Corpuscular HGB Conc 33 g/dL (31-36); Mean Corpuscular Hemoglobin 30 pg (27-31); Mean Corpuscular Volume 89 fL (80-94); Mean Platelet Volume 9.1 fL (7.4-10.4); Platelet Count 162 10^3/uL (150-450); Red Blood Count 3.75 10^6 /uL (4.18-5.48); Red Cell Distribution Width 14 % (10-15)
[2019-10-02 06:03] LABS: BUN/Creatinine Ratio 23.7 (8-20); Calcium 7.7 mg/dL (8.6-10.3); EGFR African American 70.8 (>60); EGFR Non-African American 58.5 (>60); Potassium 3.9 mmol/L (3.5-5.0)
[2019-10-02] MEDS: NS 0.9% 1000 ML** 1,000 ML IV SCH ×2 (06:08→15:58)
[2019-10-02] MEDS: Mometasone/Formoter 200/5 MDI INH SCH ×2 (07:26→20:34)
[2019-10-02] MEDS: Cholecalciferol TAB* 1000 UNITS PO SCH (08:30)
[2019-10-02] MEDS: Clopidogrel TAB* 75 MG PO SCH (08:30)
[2019-10-02] MEDS: Aspirin EC TAB* 81 MG TAB.EC PO SCH (08:30)
[2019-10-02] MEDS: Oxybutynin XL TAB* 5 MG PO SCH (08:30)
[2019-10-02] MEDS: Pantoprazole TAB * 40 MG TAB PO SCH (08:30)
[2019-10-02] MEDS: Metoprolol Tartrate TAB* 25 MG PO SCH ×2 (08:30→21:32)
[2019-10-02] MEDS: Insulin LISPRO* 1 UNITS UNIT SUBCUT SCH ×4 (08:31→21:16)
--- NOTE | 2019-10-02 08:56 | PN ---
Subjective Date of Service: 10/02/19 Interval History: Patient is [place]. Patient reports that he is feeling better today. Denies fever or chills overnight. Denies chest pain or shortness of breath. Denies abd pain. n/v/d Family History: Unchanged from Admission Social History: Unchanged from Admission Past Medical History: Unchanged from Admission Objective Active Medications: Albuterol/Ipratropium (Duoneb (Albuterol 2.5 Mg/Ipratropium 0.5 Mg)) 1 neb INH Q4H PRN PRN Reason: SOB/WHEEZING Albuterol/Ipratropium (Duoneb (Albuterol 2.5 Mg/Ipratropium 0.5 Mg)) 1 neb INH Q6H [facility] Last Admin: 10/02/19 07:25 Dose: 1 neb Ascorbic Acid (Vitamin C Tab*) 500 mg PO DAILY [facility] Aspirin (Aspirin Ec Tab*) 81 mg PO QAM [facility] Last Admin: 10/02/19 08:30 Dose: 81 mg Atorvastatin Calcium (Lipitor*) 80 mg PO 1700 [facility] Last Admin: 10/01/19 16:23 Dose: 80 mg Cholecalciferol (Vitamin D Tab*) 1,000 units PO DAILY [facility] Last Admin: 10/02/19 08:30 Dose: 1,000 units Clopidogrel Bisulfate (Plavix Tab*) [facility] Admin: 10/02/19 08:30 Dose: 75 mg Dextrose (Dextrose 50% Vial 50 Ml*) 25 ml IV PUSH .FOR FS < 60 - SS PRN PRN Reason: FS < 60 Enoxaparin Sodium (Lovenox(*)) 40 mg SUBCUT Q24H [facility] Last Admin: 10/02/19 03:20 Dose: 40 mg Ferrous Sulfate (Ferrous Sulfate Tab*) 65 mg PO DAILY [facility] Sodium Chloride (Ns 0.9% 1000 Ml) 1,000 mls @ 125 mls/hr IV PER RATE [facility] Last Admin: 10/02/19 06:08 Dose: 125 mls/hr Azithromycin (Zithromax 500 Mg/250 Ml) 500 mg in 250 mls @ 250 mls/hr IVPB 2200 [facility] Last Admin: 10/01/19 22:30 Dose: 250 mls/hr Ceftriaxone Sodium 1 gm/ (Sodium Chloride) 50 mls @ 100 mls/hr IVPB 2100 [facility] Last Admin: 10/01/19 21:04 Dose: 100 mls/hr Insulin Glargine (Lantus(*)) 20 units SUBCUT 1700 [facility] Last Admin: 10/01/19 16:23 Dose: 20 units Insulin Human Lispro (Humalog*) 0 units SUBCUT ACHS [facility]; Protocol Last Admin: 10/02/19 08:31 Dose: 6 units Methylprednisolone Sodium Succinate (Solu-Medrol 40 Mg) 40 mg IV Q12H [facility] Last Admin: 10/02/19 03:16 Dose: 40 mg Metoprolol Tartrate (Lopressor Tab*) 25 mg PO BID [facility] Last Admin: 10/02/19 08:30 Dose: 25 mg Mometasone Furoate/Formoterol Fumar (Dulera 200/5 Mdi*) 2 puff INH BID [facility] Last Admin: 10/02/19 07:26 Dose: 2 puff Montelukast Sodium (Singulair Tab*) 10 mg PO BEDTIME [facility] Last Admin: 10/01/19 21:04 Dose: 10 mg Oxybutynin Chloride (Ditropan Xl Tab*) 10 mg PO DAILY [facility] Last Admin: 10/02/19 08:30 Dose: 10 mg Pantoprazole Sodium (Protonix Tab*) 40 mg PO DAILY [facility]; Protocol Last Admin: 10/02/19 08:30 Dose: 40 mg Vital Signs - 8 hr 10/02/19 10/02/19 10/02/19 04:06 07:27 07:33 Temperature 98.3 F Pulse Rate 71 80 Respiratory 16 17 18 Rate Blood Pressure 121/58 (mmHg) O2 Sat by Pulse 95 95 Oximetry 10/02/19 08:00 Temperature Pulse Rate 72 Respiratory 24 Rate Blood Pressure 131/70 (mmHg) O2 Sat by Pulse 95 Oximetry Oxygen Devices in Use Now: Nasal Cannula Appearance: appears comfortable sitting in the chair no acute distress Eyes: No Scleral Icterus Ears/Nose/Mouth/Throat: Clear Oropharnyx, Mucous Membranes Moist Neck: NL Appearance and Movements; NL JVP, Trachea Midline Respiratory: Symmetrical Chest Expansion and Respiratory Effort, - - mild resp. distress, exp wheezes bilat Cardiovascular: NL Sounds; No Murmurs; No JVD, No Edema Extremities: No Edema, No Clubbing, Cyanosis Skin: No Rash or Ulcers Neurological: Alert and Oriented x 3 Nutrition: Taking PO's Result Diagrams: 10/02/19 05:16 10/02/19 05:16 Microbiology and Other Data: Microbiology 09/30/19 22:23 Aerobic Blood Culture - Preliminary Blood Venous No Growth Day 1 Anaerobic Blood Culture - Preliminary No Growth Day 1 09/30/19 22:23 Aerobic Blood Culture - Preliminary Blood Venous No Growth Day 1 Anaerobic Blood Culture - Preliminary No Growth Day 1 Assess/Plan/Problems-Billing Assessment: Mr. Simmons is an 88 yo M with PMH of DM2, HTN, dementia, CAD (total of 5 stents) , prostate cancer s/p resection, COPD, asthma, AAA; who presented to the ED with c/o cough and SOB and was found to have LLL pneumonia. - Patient Problems (1) Sepsis Current Visit: Yes Status: Acute Code(s): A02.0 - [place] ENTERITIS Comment: resolved - Presented on admission with tachycardia and tachypnea; source is pneumonia - Leukocytosis today likely just secondary to steroids - Plan as above (2) Pneumonia Current Visit: No Status: Acute Code(s): J18.9 - PNEUMONIA, UNSPECIFIED ORGANISM SNOMED Code(s): 647346937 Comment: - Presented with 2-3 days of SOB and cough - CTA shows LLL pneumonia - No evidence of aspiration when evaluated by Speech Therapy - Continue azithromycin, ceftriaxone (3) CAD (coronary artery disease) Current Visit: Yes Status: Acute Code(s): I25.10 - ATHSCL HEART DISEASE OF [place] CORONARY ARTERY W/O ANG PCTRS SNOMED Code(s): 85097485 Comment: - With 5 stents (2003 and 2013) - Trop mildly elevated secondary to demand - Continue aspirin, Plavix, metoprolol (4) Dementia Current Visit: Yes Status: Acute Code(s): F03.90 - UNSPECIFIED DEMENTIA WITHOUT BEHAVIORAL DISTURBANCE SNOMED Code(s): 77897396 Comment: - Supportive care (5) History of CVA (cerebrovascular accident) Current Visit: Yes Status: Acute Code(s): Z86.73 - PRSNL HX OF TIA (TIA), AND CEREB INFRC W/O RESID DEFICITS SNOMED Code(s): 465052982 Comment: - Residual left sided weakness - Continue aspirin, Plavix, atorvastatin (6) COPD exacerbation Current Visit: No Status: Acute Code(s): J44.1 - CHRONIC OBSTRUCTIVE PULMONARY DISEASE W (ACUTE) EXACERBATION SNOMED Code(s): 434091827 Comment: - Secondary to pneumonia - Continue Dulera, Singulair, nebs - wheezing is likley related to underlying pneumonia (7) HTN (hypertension) Current Visit: No Status: Chronic Code(s): I10 - ESSENTIAL (PRIMARY) HYPERTENSION SNOMED Code(s): 14636665 Comment: - Normotensive - Hold losartan, HCTZ - Continue metoprolol (8) Hypercholesteremia Current Visit: No Status: Chronic Code(s): E78.0 - PURE HYPERCHOLESTEROLEMIA * DO NOT USE * SNOMED Code(s): 03548918 Comment: - Continue atorvastatin (9) Prostate cancer Current Visit: No Status: Chronic Priority: Medium Code(s): C61 - MALIGNANT NEOPLASM OF PROSTATE SNOMED Code(s): 250031707 Comment: - Personal history - Continue to follow with Urology/PCP (10) Type 2 diabetes mellitus Current Visit: No Status: Chronic Comment: - Hyperglycemic into the 400s today - A1c pending - Continue Lispro SS; resume Lantus (decreased from home dose) (11) DVT prophylaxis Current Visit: No Status: Acute Code(s): JNZ7925 - SNOMED Code(s): 930974174 Comment: - Lovenox (12) Full code status Current Visit: No Status: Acute Code(s): Z78.9 - OTHER SPECIFIED HEALTH STATUS SNOMED Code(s): 636989595 Comment: Status and Disposition: Inpatient. Anticipate d/c home with when medically stable, likely 2-3 more days.
[2019-10-02] MEDS: Ferrous Sulfate TAB* 325 MG PO SCH (09:07)
[2019-10-02] MEDS: Ascorbic Acid TAB* 500 MG PO SCH (09:07)
[2019-10-02] MEDS ORDERED: Insulin LISPRO* 1 UNITS UNIT SUBCUT ONE ×3 (11:58→23:37)
[2019-10-02] MEDS: Insulin GLARGINE(*) 1 UNITS UNIT SUBCUT SCH (16:28)
[2019-10-02] MEDS: Atorvastatin* 80 MG TAB PO SCH (16:28)
[2019-10-02] MEDS: Montelukast Sodium TAB* 10 MG PO SCH (21:32)
[2019-10-02] MEDS: cefTRIAXone(*) 1 GM in NS 0.9% 50 ML* 50 ML IVPB SCH (21:32)
[2019-10-02] MEDS: Azithromycin 500 mg/250 ml NS 500 MG/250 ML BAG IVPB SCH (21:32)
[2019-10-02 21:52] LABS: Calcium 7.4 mg/dL (8.6-10.3); Potassium 4.1 mmol/L (3.5-5.0)
[2019-10-02 21:58] LABS: BUN/Creatinine Ratio 27.3 (8-20); EGFR African American 64.5 (>60); EGFR Non-African American 53.3 (>60)
[2019-10-02 22:46] LABS: Urine Appearance Clear; Urine Bilirubin Negative (Negative); Urine Blood 1+ (Negative); Urine Color Straw; Urine Glucose 3+(>=500 mg/dL) (Negative); Urine Ketones Negative (Negative); Urine Nitrite Negative (Negative); Urine Protein Negative (Negative); Urine Specific Gravity 1.021 (1.010-1.030); Urine Urobilinogen Negative (Negative)
[2019-10-02 22:50] LABS: Urine Bacteria Absent (Absent); Urine Red Blood Cell 1+(3-5/hpf) (Absent); Urine Squamous Epithelial Cell Present (Absent); Urine White Blood Cell Trace(0-5/hpf) (Absent)
[2019-10-02 23:04] LABS: Albumin 3.3 g/dL (3.2-5.2); BUN/Creatinine Ratio 29.1 (8-20); Calcium 7.1 mg/dL (8.6-10.3); EGFR African American 71.5 (>60); EGFR Non-African American 59.1 (>60)
[2019-10-03] MEDS: Albuterol/Ipratropium NEB.SOL* Albuterol 2.5 MG/Ipratropium 0.5 MG 3 ML INH SCH ×4 (03:00→19:24)
[2019-10-03] MEDS: Enoxaparin(*) 40 MG/0.4 ML SYR SUBCUT SCH (03:38)
[2019-10-03] MEDS: NS 0.9% 1000 ML** 1,000 ML IV SCH (04:41)
[2019-10-03 06:49] LABS: Hematocrit 32 % (42-52); Hemoglobin 11.2 g/dL (14.0-18.0); Mean Corpuscular HGB Conc 35 g/dL (31-36); Mean Corpuscular Hemoglobin 30 pg (27-31); Mean Corpuscular Volume 87 fL (80-94); Mean Platelet Volume 8.9 fL (7.4-10.4); Platelet Count 181 10^3/uL (150-450); Red Blood Count 3.71 10^6 /uL (4.18-5.48); Red Cell Distribution Width 14 % (10-15); White Blood Count 10.4 10^3/uL (3.5-10.8)
[2019-10-03 06:52] LABS: BUN/Creatinine Ratio 28.6 (8-20); Calcium 7.5 mg/dL (8.6-10.3); EGFR African American 75.2 (>60); EGFR Non-African American 62.2 (>60); Potassium 3.7 mmol/L (3.5-5.0)
[2019-10-03 07:13] LABS: ABS Lymphocytes 0.9 10^3/ul (1.0-4.8); ABS Monocytes 0.8 10^3/ul (0-0.8); ABS Neutrophils 8.8 10^3/ul (1.5-7.7); Lymphocyte % 8.3 %; Nucleated Red Blood Cells % 0.1
[2019-10-03] MEDS: Mometasone/Formoter 200/5 MDI INH SCH ×2 (07:29→19:21)
[2019-10-03] MEDS: Insulin LISPRO* 1 UNITS UNIT SUBCUT SCH ×4 (10:05→20:55)
[2019-10-03] MEDS: Pantoprazole TAB * 40 MG TAB PO SCH (10:07)
[2019-10-03] MEDS: Clopidogrel TAB* 75 MG PO SCH (10:07)
[2019-10-03] MEDS: Ferrous Sulfate TAB* 325 MG PO SCH (10:07)
[2019-10-03] MEDS: Metoprolol Tartrate TAB* 25 MG PO SCH ×2 (10:07→20:55)
[2019-10-03] MEDS: Aspirin EC TAB* 81 MG TAB.EC PO SCH (10:08)
[2019-10-03] MEDS: Cholecalciferol TAB* 1000 UNITS PO SCH (10:08)
[2019-10-03] MEDS: Ascorbic Acid TAB* 500 MG PO SCH (10:08)
[2019-10-03] MEDS: Oxybutynin XL TAB* 5 MG PO SCH (10:10)
--- NOTE | 2019-10-03 11:00 | PN ---
Subjective Date of Service: 10/03/19 Interval History: Report from Nursing staff: Patient was eating breakfast in bed, had an episode of choking while drink coffee this AM. Blood Sugars reviewed improved from yesterday - will increase SS insulin coverage to improve control. Increased lantus to 30 units daily yesterday. Will continue to adjust as needed Patient reports that he is feeling better now. Reports that he thought the choking episode happened yesterday. reports that this is his baseline for memory. Reports that the patient short term memory is poor. Patient denies chest pain or shortness of breath , denies fever or chills overnight. Denies abd pain n/v/d. Family History: Unchanged from Admission Social History: Unchanged from Admission Past Medical History: Unchanged from Admission Objective Active Medications: Albuterol/Ipratropium (Duoneb (Albuterol 2.5 Mg/Ipratropium 0.5 Mg)) 1 neb INH Q4H PRN PRN Reason: SOB/WHEEZING Albuterol/Ipratropium (Duoneb (Albuterol 2.5 Mg/Ipratropium 0.5 Mg)) 1 neb INH Q6H [facility] Last Admin: 10/03/19 07:29 Dose: 1 neb Ascorbic Acid (Vitamin C Tab*) 500 mg PO DAILY [facility] Last Admin: 10/03/19 10:08 Dose: 500 mg Aspirin (Aspirin Ec Tab*) 81 mg PO QAM [facility] Last Admin: 10/03/19 10:08 Dose: 81 mg Atorvastatin Calcium (Lipitor*) 80 mg PO 1700 [facility] Last Admin: 10/02/19 16:28 Dose: 80 mg Cholecalciferol (Vitamin D Tab*) 1,000 units PO DAILY [facility] Last Admin: 10/03/19 10:08 Dose: 1,000 units Clopidogrel Bisulfate (Plavix Tab*) 75 mg PO QAM [facility] Last Admin: 10/03/19 10:07 Dose: 75 mg Dextrose (Dextrose 50% Vial 50 Ml*) 25 ml IV PUSH .FOR FS < 60 - SS PRN PRN Reason: FS < 60 Enoxaparin Sodium (Lovenox(*)) 40 mg SUBCUT Q24H [facility] Last Admin: 10/03/19 03:38 Dose: 40 mg Ferrous Sulfate (Ferrous Sulfate Tab*) 325 mg PO DAILY [facility] Last Admin: 10/03/19 10:07 Dose: 325 mg Azithromycin (Zithromax 500 Mg/250 Ml) 500 mg in 250 mls @ 250 mls/hr IVPB 2200 [facility] Last Admin: 10/02/19 21:32 Dose: 250 mls/hr Ceftriaxone Sodium 1 gm/ (Sodium Chloride) 50 mls @ 100 mls/hr IVPB 2100 [facility] Last Admin: 10/02/19 21:32 Dose: 100 mls/hr Insulin Glargine (Lantus(*)) 30 units SUBCUT 1700 [facility] Last Admin: 10/02/19 16:28 Dose: 30 units Insulin Human Lispro (Humalog*) 0 units SUBCUT ACHS [facility]; Protocol Metoprolol Tartrate (Lopressor Tab*) 25 mg PO BID [facility] Last Admin: 10/03/19 10:07 Dose: 25 mg Mometasone Furoate/Formoterol Fumar (Dulera 200/5 Mdi*) 2 puff INH RT.BID [facility] Montelukast Sodium (Singulair Tab*) 10 mg PO BEDTIME [facility] Last Admin: 10/02/19 21:32 Dose: 10 mg Oxybutynin Chloride (Ditropan Xl Tab*) 10 mg PO DAILY [facility] Last Admin: 10/03/19 10:10 Dose: 10 mg Pantoprazole Sodium (Protonix Tab*) 40 mg PO DAILY [facility]; Protocol Last Admin: 10/03/19 10:07 Dose: 40 mg Prednisone (Deltasone Tab*) 40 mg PO DAILY [facility] Stop: 10/05/19 09:01 Vital Signs - 8 hr 10/03/19 10/03/19 10/03/19 03:01 04:00 07:32 Temperature 97.2 F Pulse Rate 70 76 73 Respiratory 16 18 18 Rate Blood Pressure 124/60 (mmHg) O2 Sat by Pulse 99 95 99 Oximetry 10/03/19 07:34 Temperature 98.7 F Pulse Rate 70 Respiratory 20 Rate Blood Pressure 150/71 (mmHg) O2 Sat by Pulse 99 Oximetry Oxygen Devices in Use Now: Nasal Cannula Appearance: appears comfortable , no acute distress Eyes: No Scleral Icterus Ears/Nose/Mouth/Throat: Clear Oropharnyx, Mucous Membranes Moist Neck: NL Appearance and Movements; NL JVP, Trachea Midline Respiratory: Symmetrical Chest Expansion and Respiratory Effort, - - few scattered rhonchi with exp. wheezes bilat Cardiovascular: NL Sounds; No Murmurs; No JVD, No Edema Abdominal: NL Sounds; No Tenderness; No Distention Extremities: No Edema, No Clubbing, Cyanosis Skin: - - groin/ scrotum with redness Neurological: - - alert, confused to time, oriented to person and place Nutrition: Taking PO's Result Diagrams: 10/03/19 06:27 10/03/19 06:27 Microbiology and Other Data: Microbiology 09/30/19 22:23 Aerobic Blood Culture - Preliminary Blood Venous No Growth Day 1 Anaerobic Blood Culture - Preliminary No Growth Day 1 09/30/19 22:23 Aerobic Blood Culture - Preliminary Blood Venous No Growth Day 1 Anaerobic Blood Culture - Preliminary No Growth Day 1 Assess/Plan/Problems-Billing Assessment: Mr. Simmons is an 88 yo M with PMH of DM2, HTN, dementia, CAD (total of 5 stents) , prostate cancer s/p resection, COPD, asthma, AAA; who presented to the ED with c/o cough and SOB and was found to have LLL pneumonia. - Patient Problems (1) Pneumonia Current Visit: No Status: Acute Code(s): J18.9 - PNEUMONIA, UNSPECIFIED ORGANISM SNOMED Code(s): 471652842 Comment: - Presented with 2-3 days of SOB and cough - CTA shows LLL pneumonia - No evidence of aspiration when evaluated by Speech Therapy- patient with 1 episode of choking while eating breakfast in bed. - will get the patient OOB for all meals , will consider re-eval from speech therapy if the patient has further episodes - if the patient develops worsening shortness of breath - will repeat chest x ray - Continue azithromycin, ceftriaxone (2) Sepsis Current Visit: Yes Status: Acute Code(s): A02.0 - SALMONELLA ENTERITIS Comment: resolved - Presented on admission with tachycardia and tachypnea; source is pneumonia - Leukocytosis resolved - Plan as above (3) CAD (coronary artery disease) Current Visit: Yes Status: Acute Code(s): I25.10 - ATHSCL HEART DISEASE OF [place] CORONARY ARTERY W/O ANG PCTRS SNOMED Code(s): 54899466 Comment: - With 5 stents (2003 and 2013) - Trop mildly elevated secondary to demand - Continue aspirin, Plavix, metoprolol (4) Dementia Current Visit: Yes Status: Acute Code(s): F03.90 - UNSPECIFIED DEMENTIA WITHOUT BEHAVIORAL DISTURBANCE SNOMED Code(s): 85614323 Comment: - Supportive care (5) History of CVA (cerebrovascular accident) Current Visit: Yes Status: Acute Code(s): Z86.73 - PRSNL HX OF TIA (TIA), AND CEREB INFRC W/O RESID DEFICITS SNOMED Code(s): 185859339 Comment: - Residual left sided weakness - Continue aspirin, Plavix, atorvastatin (6) COPD exacerbation Current Visit: No Status: Acute Code(s): J44.1 - CHRONIC OBSTRUCTIVE PULMONARY DISEASE W (ACUTE) EXACERBATION SNOMED Code(s): 084974636 Comment: - Secondary to pneumonia - Continue Dulera, Singulair, nebs - wheezing is likley related to underlying pneumonia - will continue steroids for 3 more doses (7) HTN (hypertension) Current Visit: No Status: Chronic Code(s): I10 - ESSENTIAL (PRIMARY) HYPERTENSION SNOMED Code(s): 53170700 Comment: - Normotensive - Hold losartan, HCTZ - Continue metoprolol (8) Hypercholesteremia Current Visit: No Status: Chronic Code(s): E78.0 - PURE HYPERCHOLESTEROLEMIA * DO NOT USE * SNOMED Code(s): 69090477 Comment: - Continue atorvastatin (9) Prostate cancer Current Visit: No Status: Chronic Priority: Medium Code(s): C61 - MALIGNANT NEOPLASM OF PROSTATE SNOMED Code(s): 525924319 Comment: - Personal history - Continue to follow with Urology/PCP (10) Type 2 diabetes mellitus Current Visit: No Status: Chronic Comment: - Hyperglycemic blood sugars improved today but remain in the 200-300's - A1C 8.9 - will increased Lispro SS; - increased Lantus to home dose 30 units yesterday (11) DVT prophylaxis Current Visit: No Status: Acute Code(s): IAG5840 - SNOMED Code(s): 410518661 Comment: - Lovenox (12) Full code status Current Visit: No Status: Acute Code(s): Z78.9 - OTHER SPECIFIED HEALTH STATUS SNOMED Code(s): 931121483 Comment: Status and Disposition: Inpatient. Anticipate d/c home with when medically stable, likely 2 more days.
[2019-10-03] MEDS: Insulin GLARGINE(*) 1 UNITS UNIT SUBCUT SCH (17:02)
[2019-10-03] MEDS: Atorvastatin* 80 MG TAB PO SCH (17:02)
[2019-10-03] MEDS: Montelukast Sodium TAB* 10 MG PO SCH (20:55)
[2019-10-03] MEDS: cefTRIAXone(*) 1 GM in NS 0.9% 50 ML* 50 ML IVPB SCH (20:55)
[2019-10-03] MEDS: Azithromycin 500 mg/250 ml NS 500 MG/250 ML BAG IVPB SCH (21:54)
[2019-10-04] MEDS: Albuterol/Ipratropium NEB.SOL* Albuterol 2.5 MG/Ipratropium 0.5 MG 3 ML INH SCH ×3 (00:50→08:49)
[2019-10-04] MEDS: Enoxaparin(*) 40 MG/0.4 ML SYR SUBCUT SCH (03:32)
[2019-10-04] MEDS: Insulin LISPRO* 1 UNITS UNIT SUBCUT SCH ×4 (07:34→21:15)
[2019-10-04] MEDS: Mometasone/Formoter 200/5 MDI INH SCH ×2 (08:49→20:42)
[2019-10-04] MEDS: Ferrous Sulfate TAB* 325 MG PO SCH (09:17)
[2019-10-04] MEDS: Metoprolol Tartrate TAB* 25 MG PO SCH ×2 (09:18→21:16)
[2019-10-04] MEDS: Cholecalciferol TAB* 1000 UNITS PO SCH (09:18)
[2019-10-04] MEDS: Oxybutynin XL TAB* 5 MG PO SCH (09:18)
[2019-10-04] MEDS: Ascorbic Acid TAB* 500 MG PO SCH (09:18)
[2019-10-04] MEDS: Clopidogrel TAB* 75 MG PO SCH (09:18)
[2019-10-04] MEDS: Pantoprazole TAB * 40 MG TAB PO SCH (09:18)
[2019-10-04] MEDS: Aspirin EC TAB* 81 MG TAB.EC PO SCH (09:18)
[2019-10-04 10:04] LABS: BUN/Creatinine Ratio 29.5 (8-20); Calcium 7.6 mg/dL (8.6-10.3)
[2019-10-04 10:17] LABS: Potassium 4.2 mmol/L (3.5-5.0)
[2019-10-04] MEDS: Nystatin TOP POWDER* 15 GM BTL TOPICAL SCH (11:03)
--- NOTE | 2019-10-04 12:27 | PN ---
Subjective Date of Service: 10/04/19 Interval History: Patient reports that he is feeling better. Denies chest pain or shortness of breath. Denies abd pain n/v/d. Denies fever or chills. Continues to require o2 at 2 liters will wean and d/c today as o2 saturations are consistently above 95% on 2 liters if able. does report that the patient has baseline shortness of breath with exertion. reports breathing is close to baseline today. Will ambulate patient today. NO fevers overnight Labs reviewed Bicarb is 16 - will add sodium bicarb 650 mg with meals and repeat bmp in the AM. Family History: Unchanged from Admission Social History: Unchanged from Admission Past Medical History: Unchanged from Admission Objective Active Medications: Albuterol/Ipratropium (Duoneb (Albuterol 2.5 Mg/Ipratropium 0.5 Mg)) 1 neb INH Q4H PRN PRN Reason: SOB/WHEEZING Albuterol/Ipratropium (Duoneb (Albuterol 2.5 Mg/Ipratropium 0.5 Mg)) 1 neb INH [id number] AWAKE [facility] Last Admin: 10/04/19 08:49 Dose: Not Given Ascorbic Acid (Vitamin C Tab*) 500 mg PO DAILY [facility] Last Admin: 10/04/19 09:18 Dose: 500 mg Aspirin (Aspirin Ec Tab*) 81 mg PO QAM [facility] Last Admin: 10/04/19 09:18 Dose: 81 mg Atorvastatin Calcium (Lipitor*) 80 mg PO 1700 [facility] Last Admin: 10/03/19 17:02 Dose: 80 mg Cholecalciferol (Vitamin D Tab*) 1,000 units PO DAILY [facility] Last Admin: 10/04/19 09:18 Dose: 1,000 units Clopidogrel Bisulfate (Plavix Tab*) 75 mg PO QAM [facility] Last Admin: 10/04/19 09:18 Dose: 75 mg Dextrose (Dextrose 50% Vial 50 Ml*) 25 ml IV PUSH .FOR FS < 60 - SS PRN PRN Reason: FS < 60 Enoxaparin Sodium (Lovenox(*)) 40 mg SUBCUT Q24H [facility] Last Admin: 10/04/19 03:32 Dose: 40 mg Ferrous Sulfate (Ferrous Sulfate Tab*) 325 mg PO DAILY [facility] Last Admin: 10/04/19 09:17 Dose: 325 mg Azithromycin (Zithromax 500 Mg/250 Ml) 500 mg in 250 mls @ 250 mls/hr IVPB 2200 [facility] Last Admin: 10/03/19 21:54 Dose: 250 mls/hr Ceftriaxone Sodium 1 gm/ (Sodium Chloride) 50 mls @ 100 mls/hr IVPB 2100 [facility] Last Admin: 10/03/19 20:55 Dose: 100 mls/hr Insulin Glargine (Lantus(*)) 30 units SUBCUT 1700 [facility] Last Admin: 10/03/19 17:02 Dose: 30 units Insulin Human Lispro (Humalog*) 0 units SUBCUT ACHS [facility]; Protocol Last Admin: 10/04/19 11:51 Dose: 3 unit Metoprolol Tartrate (Lopressor Tab*) 25 mg PO BID [facility] Last Admin: 10/04/19 09:18 Dose: 25 mg Mometasone Furoate/Formoterol Fumar (Dulera 200/5 Mdi*) 2 puff INH RT.BID [facility] Last Admin: 10/04/19 08:49 Dose: Not Given Montelukast Sodium (Singulair Tab*) 10 mg PO BEDTIME [facility] Last Admin: 10/03/19 20:55 Dose: 10 mg Nystatin (Nystatin Top Powder*) 1 applic TOPICAL BID [facility] Last Admin: 10/04/19 11:03 Dose: 1 applic Oxybutynin Chloride (Ditropan Xl Tab*) 10 mg PO DAILY [facility] Last Admin: 10/04/19 09:18 Dose: 10 mg Pantoprazole Sodium (Protonix Tab*) 40 mg PO DAILY [facility]; Protocol Last Admin: 10/04/19 09:18 Dose: 40 mg Prednisone (Deltasone Tab*) 40 mg PO DAILY [facility] Stop: 10/05/19 09:01 Last Admin: 10/04/19 09:18 Dose: 40 mg Vital Signs - 8 hr 10/04/19 10/04/19 10/04/19 07:40 08:00 10:30 Temperature 98.1 F Pulse Rate 65 Respiratory 20 16 Rate Blood Pressure 150/66 (mmHg) O2 Sat by Pulse 96 97 Oximetry Oxygen Devices in Use Now: Nasal Cannula Appearance: appears comfortable, no acute distress Eyes: No Scleral Icterus Ears/Nose/Mouth/Throat: Clear Oropharnyx, Mucous Membranes Moist Neck: NL Appearance and Movements; NL JVP, Trachea Midline Respiratory: Symmetrical Chest Expansion and Respiratory Effort, Clear to Auscultation Cardiovascular: NL Sounds; No Murmurs; No JVD, No Edema Abdominal: NL Sounds; No Tenderness; No Distention Extremities: No Edema, No Clubbing, Cyanosis Skin: No Rash or Ulcers Neurological: Alert and Oriented x 3 Nutrition: Taking PO's Result Diagrams: 10/03/19 06:27 10/05/19 06:27 Microbiology and Other Data: Microbiology 09/30/19 22:23 Aerobic Blood Culture - Preliminary Blood Venous No Growth Day 1 Anaerobic Blood Culture - Preliminary No Growth Day 1 09/30/19 22:23 Aerobic Blood Culture - Preliminary Blood Venous No Growth Day 1 Anaerobic Blood Culture - Preliminary No Growth Day 1 Assess/Plan/Problems-Billing Assessment: Mr. Simmons is an 88 yo M with PMH of DM2, HTN, dementia, CAD (total of 5 stents) , prostate cancer s/p resection, COPD, asthma, AAA; who presented to the ED with c/o cough and SOB and was found to have LLL pneumonia. - Patient Problems (1) Pneumonia Current Visit: No Status: Acute Code(s): J18.9 - PNEUMONIA, UNSPECIFIED ORGANISM SNOMED Code(s): 044989121 Comment: - Presented with 2-3 days of SOB and cough - CTA shows LLL pneumonia - No evidence of aspiration when evaluated by Speech Therapy- patient with 1 episode of choking while eating breakfast in bed. - will get the patient OOB for all meals , will consider re-eval from speech therapy if the patient has further episodes - wheezing is improved today - no further episodes of choking - eating meals oob - Continue ceftriaxone - has completed Azithromycin - will stop (2) Sepsis Current Visit: Yes Status: Acute Code(s): A02.0 - SALMONELLA ENTERITIS Comment: resolved - Presented on admission with tachycardia and tachypnea; source is pneumonia - Leukocytosis resolved - Plan as above (3) CAD (coronary artery disease) Current Visit: Yes Status: Acute Code(s): I25.10 - ATHSCL HEART DISEASE OF [place] CORONARY ARTERY W/O ANG PCTRS SNOMED Code(s): 85835056 Comment: - With 5 stents (2003 and 2013) - Trop mildly elevated secondary to demand - Continue aspirin, Plavix, metoprolol (4) Dementia Current Visit: Yes Status: Acute Code(s): F03.90 - UNSPECIFIED DEMENTIA WITHOUT BEHAVIORAL DISTURBANCE SNOMED Code(s): 36690042 Comment: - Supportive care (5) History of CVA (cerebrovascular accident) Current Visit: Yes Status: Acute Code(s): Z86.73 - PRSNL HX OF TIA (TIA), AND CEREB INFRC W/O RESID DEFICITS SNOMED Code(s): 418758726 Comment: - Residual left sided weakness - Continue aspirin, Plavix, atorvastatin (6) COPD exacerbation Current Visit: No Status: Acute Code(s): J44.1 - CHRONIC OBSTRUCTIVE PULMONARY DISEASE W (ACUTE) EXACERBATION SNOMED Code(s): 362364824 Comment: - Secondary to pneumonia - Continue Dulera, Singulair, nebs - wheezing is likley related to underlying pneumonia - will continue steroids for 2 more doses (7) HTN (hypertension) Current Visit: No Status: Chronic Code(s): I10 - ESSENTIAL (PRIMARY) HYPERTENSION SNOMED Code(s): 46215772 Comment: - blood presure consistently 113-150's - Will resume Losartan as BP allows - conitnue to hold HCTZ - Continue metoprolol (8) Hypercholesteremia Current Visit: No Status: Chronic Code(s): E78.0 - PURE HYPERCHOLESTEROLEMIA * DO NOT USE * SNOMED Code(s): 87569770 Comment: - Continue atorvastatin (9) Prostate cancer Current Visit: No Status: Chronic Priority: Medium Code(s): C61 - MALIGNANT NEOPLASM OF PROSTATE SNOMED Code(s): 198936202 Comment: - Personal history - Continue to follow with Urology/PCP (10) Type 2 diabetes mellitus Current Visit: No Status: Chronic Comment: - Hyperglycemic blood sugars improved today but remain 123-400's - A1C 8.9 - will continue Lispro SS at current dosing; - Continue Lantus at home dose 30 units (11) LELO (acute kidney injury) Current Visit: Yes Status: Acute Code(s): N17.9 - ACUTE KIDNEY FAILURE, UNSPECIFIED SNOMED Code(s): 92212156 Comment: LELO on admission now resolved Likely R/T dehydration and sepsis from underlying pneumonia - will continue to monitor (12) DVT prophylaxis Current Visit: No Status: Acute Code(s): SJF7353 - SNOMED Code(s): 736342144 Comment: - Jass (13) Full code status Current Visit: No Status: Acute Code(s): Z78.9 - OTHER SPECIFIED HEALTH STATUS SNOMED Code(s): 990576333 Comment: Status and Disposition: Inpatient. Anticipate d/c home with when medically stable, likely tomorrow
[2019-10-04] MEDS: Atorvastatin* 80 MG TAB PO SCH (17:14)
[2019-10-04] MEDS: Insulin GLARGINE(*) 1 UNITS UNIT SUBCUT SCH (17:14)
[2019-10-04] MEDS ORDERED: Losartan TAB* 25 MG PO SCH (18:00)
[2019-10-04] MEDS ORDERED: Sodium Bicarbonate (ANTACID)* 650 MG TAB PO SCH (18:00)
[2019-10-04] MEDS: Montelukast Sodium TAB* 10 MG PO SCH (21:16)
[2019-10-04] MEDS: cefTRIAXone(*) 1 GM in NS 0.9% 50 ML* 50 ML IVPB SCH (21:31)
[2019-10-05] MEDS: Nystatin TOP POWDER* 15 GM BTL TOPICAL SCH ×2 (00:18→09:49)
--- NOTE | 2019-10-05 04:35 | PN ---
Hospitalist Progress Note Date of Service: 10/05/19 Called to review telemetry for bradycardia HR 30+ and pause Sinus bradycardia mostly overnight, baseline heart rate is 60-70s in previous EKG, HR dips down to 30s tonight Around 405am, second degree type 1, progressive [place] prolongation in 3 beats until it drops. Patient is comfortably sleeping otherwise, no snoring heard. 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 Other conditions that need to rule out include sleep apnea. P: no urgent intervention consider sleep apnea evaluation
[2019-10-05] MEDS: Enoxaparin(*) 40 MG/0.4 ML SYR SUBCUT SCH (05:20)
[2019-10-05 06:53] LABS: BUN/Creatinine Ratio 30.2 (8-20); Calcium 7.7 mg/dL (8.6-10.3); EGFR African American 80.2 (>60); EGFR Non-African American 66.2 (>60); Potassium 3.7 mmol/L (3.5-5.0)
[2019-10-05] MEDS: Mometasone/Formoter 200/5 MDI INH SCH ×2 (07:32→19:56)
[2019-10-05] MEDS: Insulin LISPRO* 1 UNITS UNIT SUBCUT SCH ×4 (07:44→22:00)
[2019-10-05] MEDS: Metoprolol Tartrate TAB* 25 MG PO SCH ×2 (08:33→21:40)
[2019-10-05] MEDS: Cholecalciferol TAB* 1000 UNITS PO SCH (09:49)
[2019-10-05] MEDS: Aspirin EC TAB* 81 MG TAB.EC PO SCH (09:49)
[2019-10-05] MEDS: glipiZIDE TAB.XL* 2.5 MG PO SCH (09:49)
[2019-10-05] MEDS: Clopidogrel TAB* 75 MG PO SCH (09:49)
[2019-10-05] MEDS: Ascorbic Acid TAB* 500 MG PO SCH (09:49)
[2019-10-05] MEDS: Pantoprazole TAB * 40 MG TAB PO SCH (09:49)
[2019-10-05] MEDS: Hydrochlorothiazide TAB* 25 MG PO SCH (09:49)
[2019-10-05] MEDS: Oxybutynin XL TAB* 5 MG PO SCH (09:49)
[2019-10-05] MEDS: Ferrous Sulfate TAB* 325 MG PO SCH (09:49)
[2019-10-05] MEDS ORDERED: Lisinopril TAB* 5 MG PO SCH (17:00)
[2019-10-05] MEDS: Insulin GLARGINE(*) 1 UNITS UNIT SUBCUT SCH (17:39)
[2019-10-05] MEDS: Atorvastatin* 80 MG TAB PO SCH (17:40)
--- NOTE | 2019-10-05 18:13 | PN ---
Subjective Date of Service: 10/05/19 Interval History: Patient sitting up in chair, eating dinner. Extremely hard of hearing. Denied chest pain or shortness of breath. Family in room, stated that he looked and sounded better than even yesterday and that his appetite has returned. Nursing reported a red, raw, yeasty looking scrotum. Patient is incontinent of urine. Blood pressure increased today, though no reported headache. Family History: Unchanged from Admission Social History: Unchanged from Admission Past Medical History: Unchanged from Admission Objective Active Medications: Albuterol/Ipratropium (Duoneb (Albuterol 2.5 Mg/Ipratropium 0.5 Mg)) 1 neb INH Q4H PRN PRN Reason: SOB/WHEEZING Ascorbic Acid (Vitamin C Tab*) 500 mg PO DAILY [facility] Last Admin: 10/05/19 09:49 Dose: 500 mg Aspirin (Aspirin Ec Tab*) 81 mg PO QAM [facility] Last Admin: 10/05/19 09:49 Dose: 81 mg Atorvastatin Calcium (Lipitor*) 80 mg PO 1700 [facility] Last Admin: 10/05/19 17:40 Dose: 80 mg Cholecalciferol (Vitamin D Tab*) 1,000 units PO DAILY [facility] Last Admin: 10/05/19 09:49 Dose: 1,000 units Clopidogrel Bisulfate (Plavix Tab*) 75 mg PO QAM [facility] Last Admin: 10/05/19 09:49 Dose: 75 mg Dextrose (Dextrose 50% Vial 50 Ml*) 25 ml IV PUSH .FOR FS < 60 - SS PRN PRN Reason: FS < 60 Enoxaparin Sodium (Lovenox(*)) 40 mg SUBCUT Q24HR@0600 [facility] Last Admin: 10/05/19 05:20 Dose: 40 mg Ferrous Sulfate (Ferrous Sulfate Tab*) 325 mg PO DAILY [facility] Last Admin: 10/05/19 09:49 Dose: 325 mg Glipizide (Glucotrol Xl*) 2.5 mg PO DAILY [facility] Last Admin: 10/05/19 09:49 Dose: 2.5 mg Hydrochlorothiazide (Hydrodiuril Tab*) 25 mg PO DAILY [facility] Last Admin: 10/05/19 09:49 Dose: 25 mg Ceftriaxone Sodium 1 gm/ (Sodium Chloride) 50 mls @ 100 mls/hr IVPB 2100 [facility] Last Admin: 10/04/19 21:31 Dose: 100 mls/hr Insulin Glargine (Lantus(*)) 36 units SUBCUT 1700 [facility] Last Admin: 10/05/19 17:39 Dose: 36 units Insulin Human Lispro (Humalog*) 0 units SUBCUT ACHS [facility]; Protocol Last Admin: 10/05/19 17:40 Dose: 6 unit Losartan Potassium (Cozaar Tab*) 50 mg PO DAILY [facility] Metoprolol Tartrate (Lopressor Tab*) 25 mg PO BID [facility] Last Admin: 10/05/19 08:33 Dose: Not Given Mometasone Furoate/Formoterol Fumar (Dulera 200/5 Mdi*) 2 puff INH RT.BID [facility] Last Admin: 10/05/19 07:32 Dose: 2 puff Montelukast Sodium (Singulair Tab*) 10 mg PO BEDTIME [facility] Last Admin: 10/04/19 21:16 Dose: 10 mg Nystatin (Nystatin Cream*) 1 applic TOPICAL BID [facility] Oxybutynin Chloride (Ditropan Xl Tab*) 10 mg PO DAILY [facility] Last Admin: 10/05/19 09:49 Dose: 10 mg Pantoprazole Sodium (Protonix Tab*) 40 mg PO DAILY [facility]; Protocol Last Admin: 10/05/19 09:49 Dose: 40 mg Vital Signs - 8 hr 10/05/19 10/05/19 11:41 15:30 Temperature 97.7 F 97.6 F Pulse Rate 64 63 Respiratory 20 16 Rate Blood Pressure 142/69 139/69 (mmHg) O2 Sat by Pulse 97 92 Oximetry Oxygen Devices in Use Now: Nasal Cannula Appearance: This is a well developed older gentleman seen sitting up in chair. No acute distress. Eyes: No Scleral Icterus, PERRLA Ears/Nose/Mouth/Throat: NL Teeth, Lips, Gums, Clear Oropharnyx, Mucous Membranes Moist Neck: NL Appearance and Movements; NL JVP, Trachea Midline Respiratory: Symmetrical Chest Expansion and Respiratory Effort, Clear to Auscultation Cardiovascular: NL Sounds; No Murmurs; No JVD, RRR, No Edema Abdominal: NL Sounds; No Tenderness; No Distention Lymphatic: No Cervical Adenopathy Extremities: No Edema, No Clubbing, Cyanosis Skin: No Rash or Ulcers, No Nodules or Sclerosis Neurological: Alert and Oriented x 3 Lines/Tubes/Other Access: Clean, Dry and Intact Peripheral IV Result Diagrams: 10/03/19 06:27 10/05/19 06:27 Microbiology and Other Data: Microbiology 09/30/19 22:23 Aerobic Blood Culture - Preliminary Blood Venous No Growth Day 1 Anaerobic Blood Culture - Preliminary No Growth Day 1 09/30/19 22:23 Aerobic Blood Culture - Preliminary Blood Venous No Growth Day 1 Anaerobic Blood Culture - Preliminary No Growth Day 1 Assess/Plan/Problems-Billing Assessment: Mr. Simmons is an 88 yo M with PMH of DM2, HTN, dementia, CAD (total of 5 stents) , prostate cancer s/p resection, COPD, asthma, AAA; who presented to the ED with c/o cough and SOB and was found to have LLL pneumonia. - Patient Problems (1) Pneumonia Current Visit: No Status: Acute Code(s): J18.9 - PNEUMONIA, UNSPECIFIED ORGANISM SNOMED Code(s): 091307419 Comment: - Presented with 2-3 days of SOB and cough - CTA shows LLL pneumonia - No evidence of aspiration when evaluated by Speech Therapy- patient with 1 episode of choking while eating breakfast in bed. - will get the patient OOB for all meals - no further episodes of choking - Continue ceftriaxone - has completed Azithromycin - will stop (2) Sepsis Current Visit: Yes Status: Acute Code(s): A02.0 - SALMONELLA ENTERITIS Comment: resolved - Presented on admission with tachycardia and tachypnea; source is pneumonia - Leukocytosis resolved - Plan as above (3) LELO (acute kidney injury) Current Visit: Yes Status: Acute Code(s): N17.9 - ACUTE KIDNEY FAILURE, UNSPECIFIED SNOMED Code(s): 23848119 Comment: -LELO on admission now resolved -Likely R/T dehydration and sepsis from underlying pneumonia (4) Acute respiratory failure with hypoxia Current Visit: Yes Status: Acute Code(s): J96.01 - ACUTE RESPIRATORY FAILURE WITH HYPOXIA SNOMED Code(s): 44674632 Comment: -No longer requiring oxygen supplementation. - Continue Solu-Medrol, nebs (5) CAD (coronary artery disease) Current Visit: Yes Status: Acute Code(s): I25.10 - ATHSCL HEART DISEASE OF [place] CORONARY ARTERY W/O ANG PCTRS SNOMED Code(s): 21694081 Comment: - With 5 stents (2003 and 2013) - Trop mildly elevated secondary to demand - Continue aspirin, Plavix, metoprolol (6) HTN (hypertension) Current Visit: No Status: Chronic Code(s): I10 - ESSENTIAL (PRIMARY) HYPERTENSION SNOMED Code(s): 61201236 Comment: - blood pressure elevated, resumed HCTZ and losartan. - Continue metoprolol (7) History of CVA (cerebrovascular accident) Current Visit: Yes Status: Acute Code(s): Z86.73 - PRSNL HX OF TIA (TIA), AND CEREB INFRC W/O RESID DEFICITS SNOMED Code(s): 590223470 Comment: - Residual left sided weakness - Continue aspirin, Plavix, atorvastatin (8) Type 2 diabetes mellitus Current Visit: No Status: Chronic Comment: - Hyperglycemic blood sugars improved today but remain 123-200's - A1C 8.9 - will continue Lispro SS at current dosing; - Increase Lantus to 36 units tonight due to persisten hyperglycemia. (9) DVT prophylaxis Current Visit: No Status: Acute Code(s): JOU3361 - SNOMED Code(s): 066555851 Comment: - Lovenox (10) Full code status Current Visit: No Status: Acute Code(s): Z78.9 - OTHER SPECIFIED HEALTH STATUS SNOMED Code(s): 877844307 Comment: Status and Disposition: Inpatient. Anticipate d/c home with when medically stable, likely tomorrow Attending: Nallely Collins
[2019-10-05] MEDS: Montelukast Sodium TAB* 10 MG PO SCH (21:39)
[2019-10-05] MEDS: Nystatin CREAM* 15 GM TUBE TOPICAL SCH (21:39)
[2019-10-05] MEDS: cefTRIAXone(*) 1 GM in NS 0.9% 50 ML* 50 ML IVPB SCH (21:39)
[2019-10-05] MEDS ORDERED: Benzonatate CAP* 100 MG PO PRN (23:51)
[2019-10-06] MEDS: Enoxaparin(*) 40 MG/0.4 ML SYR SUBCUT SCH (05:09)
[2019-10-06] MEDS: Mometasone/Formoter 200/5 MDI INH SCH ×2 (07:51→19:53)
[2019-10-06] MEDS: Oxybutynin XL TAB* 5 MG PO SCH (08:57)
[2019-10-06] MEDS: Cholecalciferol TAB* 1000 UNITS PO SCH (08:57)
[2019-10-06] MEDS: Aspirin EC TAB* 81 MG TAB.EC PO SCH (08:57)
[2019-10-06] MEDS: Hydrochlorothiazide TAB* 25 MG PO SCH (08:57)
[2019-10-06] MEDS: Ascorbic Acid TAB* 500 MG PO SCH (08:58)
[2019-10-06] MEDS: Metoprolol Tartrate TAB* 25 MG PO SCH ×2 (08:58→21:45)
[2019-10-06] MEDS: glipiZIDE TAB.XL* 2.5 MG PO SCH (08:58)
[2019-10-06] MEDS: Ferrous Sulfate TAB* 325 MG PO SCH (08:58)
[2019-10-06] MEDS: Clopidogrel TAB* 75 MG PO SCH (08:58)
[2019-10-06] MEDS: Losartan TAB* 25 MG PO SCH (08:58)
[2019-10-06] MEDS: Insulin LISPRO* 1 UNITS UNIT SUBCUT SCH ×4 (08:58→21:45)
[2019-10-06] MEDS: Pantoprazole TAB * 40 MG TAB PO SCH (08:58)
[2019-10-06] MEDS: Nystatin CREAM* 15 GM TUBE TOPICAL SCH ×2 (08:59→21:46)
--- NOTE | 2019-10-06 13:46 | PN ---
Subjective Date of Service: 10/06/19 Interval History: Pt is feeling well. He denies any SOB. It is noted by nursing that he does appear slightly winded even just sitting. He was able to get out of bed to the chair with a walker and otherwise minimal assistance. Objective Active Medications: Albuterol/Ipratropium (Duoneb (Albuterol 2.5 Mg/Ipratropium 0.5 Mg)) 1 neb INH Q4H PRN PRN Reason: SOB/WHEEZING Ascorbic Acid (Vitamin C Tab*) 500 mg PO DAILY [facility] Last Admin: 10/06/19 08:58 Dose: 500 mg Aspirin (Aspirin Ec Tab*) 81 mg PO QAM [facility] Last Admin: 10/06/19 08:57 Dose: 81 mg Atorvastatin Calcium (Lipitor*) 80 mg PO 1700 [facility] Last Admin: 10/05/19 17:40 Dose: 80 mg Benzonatate (Tessalon Cap*) 100 mg PO BID PRN PRN Reason: COUGH Last Admin: 10/06/19 00:22 Dose: 100 mg Cholecalciferol (Vitamin D Tab*) 1,000 units PO DAILY [facility] Last Admin: 10/06/19 08:57 Dose: 1,000 units Clopidogrel Bisulfate (Plavix Tab*) 75 mg PO QAM [facility] Last Admin: 10/06/19 08:58 Dose: 75 mg Dextrose (Dextrose 50% Vial 50 Ml*) 25 ml IV PUSH .FOR FS < 60 - SS PRN PRN Reason: FS < 60 Enoxaparin Sodium (Lovenox(*)) 40 mg SUBCUT Q24HR@0600 [facility] Last Admin: 10/06/19 05:09 Dose: 40 mg Ferrous Sulfate (Ferrous Sulfate Tab*) 325 mg PO DAILY [facility] Last Admin: 10/06/19 08:58 Dose: 325 mg Glipizide (Glucotrol Xl*) 2.5 mg PO DAILY [facility] Last Admin: 10/06/19 08:58 Dose: 2.5 mg Hydrochlorothiazide (Hydrodiuril Tab*) 25 mg PO DAILY [facility] Last Admin: 10/06/19 08:57 Dose: 25 mg Ceftriaxone Sodium 1 gm/ (Sodium Chloride) 50 mls @ 100 mls/hr IVPB 2100 [facility] Last Admin: 10/05/19 21:39 Dose: 100 mls/hr Insulin Glargine (Lantus(*)) 36 units SUBCUT 1700 [facility] Last Admin: 10/05/19 17:39 Dose: 36 units Insulin Human Lispro (Humalog*) 0 units SUBCUT ACHS [facility]; Protocol Last Admin: 10/06/19 13:22 Dose: 3 unit Losartan Potassium (Cozaar Tab*) 50 mg PO DAILY [facility] Last Admin: 10/06/19 08:58 Dose: 50 mg Metoprolol Tartrate (Lopressor Tab*) 25 mg PO BID [facility] Last Admin: 10/06/19 08:58 Dose: 25 mg Mometasone Furoate/Formoterol Fumar (Dulera 200/5 Mdi*) 2 puff INH RT.BID [facility] Last Admin: 10/06/19 07:51 Dose: 2 puff Montelukast Sodium (Singulair Tab*) 10 mg PO BEDTIME [facility] Last Admin: 10/05/19 21:39 Dose: 10 mg Nystatin (Nystatin Cream*) 1 applic TOPICAL BID [facility] Last Admin: 10/06/19 08:59 Dose: 1 applic Oxybutynin Chloride (Ditropan Xl Tab*) 10 mg PO DAILY [facility] Last Admin: 10/06/19 08:57 Dose: 10 mg Pantoprazole Sodium (Protonix Tab*) 40 mg PO DAILY [facility]; Protocol Last Admin: 10/06/19 08:58 Dose: 40 mg Vital Signs - 8 hr 10/06/19 10/06/19 10/06/19 07:00 08:00 11:07 Temperature 98.1 F 97.7 F Pulse Rate 56 59 Respiratory 16 18 16 Rate Blood Pressure 150/64 142/63 (mmHg) O2 Sat by Pulse 100 100 Oximetry Oxygen Devices in Use Now: Nasal Cannula Appearance: Eldelry male sitting up in a chair, NAD Eyes: No Scleral Icterus Ears/Nose/Mouth/Throat: Mucous Membranes Moist Respiratory: Symmetrical Chest Expansion and Respiratory Effort, Clear to Auscultation Cardiovascular: NL Sounds; No Murmurs; No JVD, No Edema, - - mildly bradycardic , regular Abdominal: NL Sounds; No Tenderness; No Distention Extremities: No Clubbing, Cyanosis Skin: No Nodules or Sclerosis Neurological: - - alert, [place], mildly confused Result Diagrams: 10/03/19 06:27 10/05/19 06:27 Microbiology and Other Data: Microbiology 09/30/19 22:23 Aerobic Blood Culture - Preliminary Blood Venous No Growth Day 1 Anaerobic Blood Culture - Preliminary No Growth Day 1 09/30/19 22:23 Aerobic Blood Culture - Preliminary Blood Venous No Growth Day 1 Anaerobic Blood Culture - Preliminary No Growth Day 1 Assess/Plan/Problems-Billing Assessment: Mr. Simmons is an 88 yo M with PMH of DM2, HTN, dementia, CAD (total of 5 stents) , prostate cancer s/p resection, COPD, asthma, AAA; who presented to the ED with c/o cough and SOB and was found to have LLL pneumonia. - Patient Problems (1) Pneumonia Current Visit: Yes Status: Acute Code(s): J18.9 - PNEUMONIA, UNSPECIFIED ORGANISM SNOMED Code(s): 103011198 Comment: Pt generally improved from a respiratory standpoint. There was no evidence of aspiration with speech eval. Change from ceftriaxone to augmentin to complete 2 more days of therapy. Pt was septic secondary to the pneumonia on admission. This has now resolved. Pt still weak and his would prefer to have their children around when he goes home for help with moving him. Plan on d /c home tomorrow. (2) Acute respiratory failure with hypoxia Current Visit: Yes Status: Acute Code(s): J96.01 - ACUTE RESPIRATORY FAILURE WITH HYPOXIA SNOMED Code(s): 24501318 Comment: Resolved. (3) COPD exacerbation Current Visit: Yes Status: Acute Code(s): J44.1 - CHRONIC OBSTRUCTIVE PULMONARY DISEASE W (ACUTE) EXACERBATION SNOMED Code(s): 721489621 Comment: COPD exacerbation felt to be secondary to pneumonia. Now resolved. Continue Dulera, Singulair, nebs. No wheezing noted now. Steroids have completed. (4) CAD (coronary artery disease) Current Visit: Yes Status: Acute Code(s): I25.10 - ATHSCL HEART DISEASE OF [place] CORONARY ARTERY W/O ANG PCTRS SNOMED Code(s): 00538286 Comment: No c/o chest pain. Continue aspirin, Plavix, metoprolol. Troponin on admission mildly elevated though likley secondary to demand ischemia. (5) Type 2 diabetes mellitus Current Visit: Yes Status: Chronic Comment: Blood sugars are under ok control today. Continue glipizide and glargine. (6) HTN (hypertension) Current Visit: Yes Status: Chronic Code(s): I10 - ESSENTIAL (PRIMARY) HYPERTENSION SNOMED Code(s): 39069297 Comment: BP mildly elevated. Continue HCTZ, losartan and metoprolol. (7) History of CVA (cerebrovascular accident) Current Visit: Yes Status: Acute Code(s): Z86.73 - PRSNL HX OF TIA (TIA), AND CEREB INFRC W/O RESID DEFICITS SNOMED Code(s): 131256821 Comment: Pt with residual left sided weakness. Continue aspirin, Plavix, atorvastatin. (8) Dementia Current Visit: Yes Status: Acute Code(s): F03.90 - UNSPECIFIED DEMENTIA WITHOUT BEHAVIORAL DISTURBANCE SNOMED Code(s): 42606949 Comment: Continue supportive care. (9) DVT prophylaxis Current Visit: Yes Status: Acute Code(s): EBW0712 - SNOMED Code(s): 060924749 Comment: Behzadx (10) Full code status Current Visit: Yes Status: Acute Code(s): Z78.9 - OTHER SPECIFIED HEALTH STATUS SNOMED Code(s): 831329881 Comment: Status and Disposition: d/c home tomorrow
[2019-10-06] MEDS: Insulin GLARGINE(*) 1 UNITS UNIT SUBCUT SCH (18:03)
[2019-10-06] MEDS: Atorvastatin* 80 MG TAB PO SCH (18:03)
[2019-10-06 18:36] LABS: Urine Appearance Clear; Urine Bilirubin Negative (Negative); Urine Blood Negative (Negative); Urine Color Straw; Urine Glucose Negative (Negative); Urine Ketones Negative (Negative); Urine Nitrite Negative (Negative); Urine Protein Negative (Negative); Urine Specific Gravity 1.009 (1.010-1.030); Urine Urobilinogen Negative (Negative)
[2019-10-06] MEDS: Montelukast Sodium TAB* 10 MG PO SCH (21:45)
[2019-10-06] MEDS: Amoxicillin/Clavulanate TAB* 500 MG PO SCH (21:45)
[2019-10-07] MEDS: Enoxaparin(*) 40 MG/0.4 ML SYR SUBCUT SCH (05:46)
[2019-10-07] MEDS: Mometasone/Formoter 200/5 MDI INH SCH ×2 (07:59→19:46)
[2019-10-07] MEDS: Insulin LISPRO* 1 UNITS UNIT SUBCUT SCH ×4 (08:16→22:18)
[2019-10-07] MEDS: Losartan TAB* 25 MG PO SCH (08:19)
[2019-10-07] MEDS: Metoprolol Tartrate TAB* 25 MG PO SCH ×2 (08:19→22:19)
[2019-10-07] MEDS: Aspirin EC TAB* 81 MG TAB.EC PO SCH (08:19)
[2019-10-07] MEDS: Oxybutynin XL TAB* 5 MG PO SCH (08:19)
[2019-10-07] MEDS: glipiZIDE TAB.XL* 2.5 MG PO SCH (08:20)
[2019-10-07] MEDS: Hydrochlorothiazide TAB* 25 MG PO SCH (08:20)
[2019-10-07] MEDS: Cholecalciferol TAB* 1000 UNITS PO SCH (08:20)
[2019-10-07] MEDS: Ferrous Sulfate TAB* 325 MG PO SCH (08:20)
[2019-10-07] MEDS: Pantoprazole TAB * 40 MG TAB PO SCH (08:21)
[2019-10-07] MEDS: Ascorbic Acid TAB* 500 MG PO SCH (08:21)
[2019-10-07] MEDS: Clopidogrel TAB* 75 MG PO SCH (08:21)
[2019-10-07] MEDS: Amoxicillin/Clavulanate TAB* 500 MG PO SCH ×2 (08:21→22:19)
[2019-10-07] MEDS: Nystatin CREAM* 15 GM TUBE TOPICAL SCH ×2 (08:22→22:19)
[2019-10-07] MEDS: Atorvastatin* 80 MG TAB PO SCH (17:24)
[2019-10-07] MEDS: Insulin GLARGINE(*) 1 UNITS UNIT SUBCUT SCH (17:24)
[2019-10-07] MEDS: Montelukast Sodium TAB* 10 MG PO SCH (22:19)
--- NOTE | 2019-10-08 07:29 | PN ---
Subjective Date of Service: 10/07/19 Interval History: Late Note: Patient is feeling well. Patient denies SOB, CP, N/V, abdominal pain, diarrhea, dizziness, F/C, or other pain. Patient's is feeling under the weather and does not feel up to taking care of him at the moment. Family History: Unchanged from Admission Social History: Unchanged from Admission Past Medical History: Unchanged from Admission Objective Active Medications: Albuterol/Ipratropium (Duoneb (Albuterol 2.5 Mg/Ipratropium 0.5 Mg)) 1 neb INH Q4H PRN PRN Reason: SOB/WHEEZING Amoxicillin/Clavulanate Potassium (Augmentin Tab*) 500 mg PO BID [facility] Last Admin: 10/07/19 22:19 Dose: 500 mg Ascorbic Acid (Vitamin C Tab*) 500 mg PO DAILY [facility] Last Admin: 10/07/19 08:21 Dose: 500 mg Aspirin (Aspirin Ec Tab*) 81 mg PO QAM [facility] Last Admin: 10/07/19 08:19 Dose: 81 mg Atorvastatin Calcium (Lipitor*) 80 mg PO 1700 [facility] Last Admin: 10/07/19 17:24 Dose: 80 mg Benzonatate (Tessalon Cap*) 100 mg PO BID PRN PRN Reason: COUGH Last Admin: 10/06/19 00:22 Dose: 100 mg Cholecalciferol (Vitamin D Tab*) 1,000 units PO DAILY [facility] Last Admin: 10/07/19 08:20 Dose: 1,000 units Clopidogrel Bisulfate (Plavix Tab*) 75 mg PO QAM [facility] Last Admin: 10/07/19 08:21 Dose: 75 mg Dextrose (Dextrose 50% Vial 50 Ml*) 25 ml IV PUSH .FOR FS < 60 - SS PRN PRN Reason: FS < 60 Ferrous Sulfate (Ferrous Sulfate Tab*) 325 mg PO DAILY [facility] Last Admin: 10/07/19 08:20 Dose: 325 mg Glipizide (Glucotrol Xl*) 2.5 mg PO DAILY [facility] Last Admin: 10/07/19 08:20 Dose: 2.5 mg Hydrochlorothiazide (Hydrodiuril Tab*) 25 mg PO DAILY [facility] Last Admin: 10/07/19 08:20 Dose: 25 mg Insulin Glargine (Lantus(*)) 36 units SUBCUT 1700 [facility] Last Admin: 10/07/19 17:24 Dose: 36 units Insulin Human Lispro (Humalog*) 0 units SUBCUT ACHS [facility]; Protocol Last Admin: 10/07/19 22:18 Dose: 3 unit Losartan Potassium (Cozaar Tab*) 50 mg PO DAILY [facility] Last Admin: 10/07/19 08:19 Dose: 50 mg Metoprolol Tartrate (Lopressor Tab*) 25 mg PO BID [facility] Last Admin: 10/07/19 22:19 Dose: 25 mg Mometasone Furoate/Formoterol Fumar (Dulera 200/5 Mdi*) 2 puff INH RT.BID [facility] Last Admin: 10/07/19 19:46 Dose: 2 puff Montelukast Sodium (Singulair Tab*) 10 mg PO BEDTIME [facility] Last Admin: 10/07/19 22:19 Dose: 10 mg Nystatin (Nystatin Cream*) 1 applic TOPICAL BID [facility] Last Admin: 10/07/19 22:19 Dose: 1 applic Oxybutynin Chloride (Ditropan Xl Tab*) 10 mg PO DAILY [facility] Last Admin: 10/07/19 08:19 Dose: 10 mg Pantoprazole Sodium (Protonix Tab*) 40 mg PO DAILY [facility]; Protocol Last Admin: 10/07/19 08:21 Dose: 40 mg Vital Signs - 8 hr 10/07/19 10/08/19 10/08/19 23:29 00:36 03:19 Temperature 98.8 F 97 F Pulse Rate 67 73 68 Respiratory 14 16 20 Rate Blood Pressure 132/50 153/69 (mmHg) O2 Sat by Pulse 96 97 97 Oximetry Oxygen Devices in Use Now: None Appearance: Patient is an 88yo male who appears stated age and is sitting in the bed in [facility]. Eyes: No Scleral Icterus, PERRLA Ears/Nose/Mouth/Throat: NL Teeth, Lips, Gums, Clear Oropharnyx, Mucous Membranes Moist Neck: NL Appearance and Movements; NL JVP, Trachea Midline Respiratory: Symmetrical Chest Expansion and Respiratory Effort, Clear to Auscultation Cardiovascular: NL Sounds; No Murmurs; No JVD, RRR, No Edema Abdominal: NL Sounds; No Tenderness; No Distention, No Hepatosplenomegaly Lymphatic: No Cervical Adenopathy Extremities: No Edema, No Clubbing, Cyanosis Skin: No Rash or Ulcers, No Nodules or Sclerosis Neurological: Alert and Oriented x 3, NL Sensation, NL Muscle Strength and Tone , - - CN II-XII intact except [place]. Result Diagrams: 10/03/19 06:27 10/05/19 06:27 Microbiology and Other Data: Microbiology 09/30/19 22:23 Aerobic Blood Culture - Preliminary Blood Venous No Growth Day 1 Anaerobic Blood Culture - Preliminary No Growth Day 1 09/30/19 22:23 Aerobic Blood Culture - Preliminary Blood Venous No Growth Day 1 Anaerobic Blood Culture - Preliminary No Growth Day 1 Assess/Plan/Problems-Billing Assessment: Mr. Simmons is an 88 yo M with PMH of DM2, HTN, dementia, CAD (total of 5 stents) , prostate cancer s/p resection, COPD, asthma, AAA; who presented to the ED with c/o cough and SOB and was found to have LLL pneumonia. - Patient Problems (1) Pneumonia Current Visit: Yes Status: Acute Code(s): J18.9 - PNEUMONIA, UNSPECIFIED ORGANISM SNOMED Code(s): 706425373 Comment: - Improved, Continue Augmentin (2) LELO (acute kidney injury) Current Visit: Yes Status: Acute Code(s): N17.9 - ACUTE KIDNEY FAILURE, UNSPECIFIED SNOMED Code(s): 67047395 Comment: -LELO on admission now resolved -Likely R/T dehydration and sepsis from underlying pneumonia (3) Acute respiratory failure with hypoxia Current Visit: Yes Status: Acute Code(s): J96.01 - ACUTE RESPIRATORY FAILURE WITH HYPOXIA SNOMED Code(s): 97064064 Comment: - Resolved. - Due to Pneumonia (4) CAD (coronary artery disease) Current Visit: Yes Status: Acute Code(s): I25.10 - ATHSCL HEART DISEASE OF [place] CORONARY ARTERY W/O ANG PCTRS SNOMED Code(s): 34771227 Comment: - No signs of ACS. - Continue aspirin, Plavix, metoprolol. Troponin on admission mildly elevated though likley secondary to demand ischemia. (5) COPD exacerbation Current Visit: Yes Status: Acute Code(s): J44.1 - CHRONIC OBSTRUCTIVE PULMONARY DISEASE W (ACUTE) EXACERBATION SNOMED Code(s): 547838358 Comment: - COPD exacerbation felt to be secondary to pneumonia. Now resolved. - Continue Dulera, Singulair, nebs. No wheezing noted now. Steroids have completed. (6) Dementia Current Visit: Yes Status: Acute Code(s): F03.90 - UNSPECIFIED DEMENTIA WITHOUT BEHAVIORAL DISTURBANCE SNOMED Code(s): 58974893 Comment: - Continue supportive care. (7) History of CVA (cerebrovascular accident) Current Visit: Yes Status: Acute Code(s): Z86.73 - PRSNL HX OF TIA (TIA), AND CEREB INFRC W/O RESID DEFICITS SNOMED Code(s): 779399544 Comment: - Pt with residual left sided weakness. Continue aspirin, Plavix, atorvastatin. - Doing well with PT, will need ongoing VNS services at home. (8) Sepsis Current Visit: Yes Status: Acute Code(s): A02.0 - [place] Comment: - resolved - Presented on admission with tachycardia and tachypnea; source is pneumonia - Leukocytosis resolved - Plan as above (9) DVT prophylaxis Current Visit: Yes Status: Acute Code(s): ECC8745 - SNOMED Code(s): 305298362 Comment: - Lovenox (10) Full code status Current Visit: Yes Status: Acute Code(s): Z78.9 - OTHER SPECIFIED HEALTH STATUS SNOMED Code(s): 994966526 Comment: Status and Disposition: d/c home tomorrow
[2019-10-08] MEDS: Nystatin CREAM* 15 GM TUBE TOPICAL SCH (08:15)
[2019-10-08] MEDS: Insulin LISPRO* 1 UNITS UNIT SUBCUT SCH (08:15)
[2019-10-08] MEDS: Amoxicillin/Clavulanate TAB* 500 MG PO SCH (08:16)
[2019-10-08] MEDS: glipiZIDE TAB.XL* 2.5 MG PO SCH (08:16)
[2019-10-08] MEDS: Ascorbic Acid TAB* 500 MG PO SCH (08:17)
[2019-10-08] MEDS: Pantoprazole TAB * 40 MG TAB PO SCH (08:18)
[2019-10-08] MEDS: Metoprolol Tartrate TAB* 25 MG PO SCH (08:18)
[2019-10-08] MEDS: Aspirin EC TAB* 81 MG TAB.EC PO SCH (08:19)
[2019-10-08] MEDS: Hydrochlorothiazide TAB* 25 MG PO SCH (08:19)
[2019-10-08] MEDS: Oxybutynin XL TAB* 5 MG PO SCH (08:19)
[2019-10-08] MEDS: Clopidogrel TAB* 75 MG PO SCH (08:19)
[2019-10-08] MEDS: Ferrous Sulfate TAB* 325 MG PO SCH (08:19)
[2019-10-08] MEDS: Cholecalciferol TAB* 1000 UNITS PO SCH (08:20)
[2019-10-08] MEDS: Losartan TAB* 25 MG PO SCH (08:20)
[2019-10-08] MEDS: Mometasone/Formoter 200/5 MDI INH SCH (08:26)
[2019-10-08 11:55] VITALS: BP 142/67
--- NOTE | 2019-10-08 23:47 | DS ---
CC: Dr. Ed Blevins * DISCHARGE SUMMARY: DATE OF ADMISSION: 10/01/19 DATE OF DISCHARGE: 10/08/19 PRIMARY CARE PROVIDER: Dr. Ed Blevins. MY ATTENDING WHILE IN THE HOSPITAL: Dr. Meli Frances.* (DICTATED BY IRIS SHEIKH) PRIMARY DISCHARGE DIAGNOSES: 1. Community-acquired pneumonia. 2. Acute respiratory failure with hypoxia, resolved. 3. Sepsis, resolved. 4. Chronic obstructive pulmonary disease exacerbation, resolved. 5. Acute kidney injury, resolved. SECONDARY DISCHARGE DIAGNOSES: 1. Diabetes mellitus type 2. 2. Hypertension. 3. 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 4. Mild dementia. 5. History of coronary artery disease, status post stenting. 6. History of prostate cancer, status post resection. 7. History of chronic obstructive pulmonary disease. 8. Severe diabetic neuropathy. 9. Aortic aneurysm. 10. History of gastrointestinal bleed. STUDIES DONE WHILE IN THE HOSPITAL: Chest x-ray from 09/30/19 read as left basilar pneumonia. Chest thorax CTA: No pulmonary emboli, left lower lobe pneumonia. MEDICATIONS AT DISCHARGE: 1. Calcium carbonate 1000 mg p.o. b.i.d. 2. Singulair 10 mg p.o. at bedtime. 3. Lipitor 80 mg p.o. nightly. 4. Insulin glargine 30 units subcutaneous daily at 1500. 5. Vitamin C 500 mg p.o. daily. 6. Ferrous sulfate 65 mg p.o. daily. 7. Tylenol extra strength 500 mg p.o. q.6 hours as needed. 8. Losartan 50 mg p.o. daily. 9. Clopidogrel 75 mg p.o. daily. 10. Aspirin 81 mg p.o. daily. 11. Lansoprazole 30 mg p.o. daily. 12. Ventolin 2 puffs by inhalation q.4 hours as needed. 13. Dulera 2 puffs by inhalation b.i.d. 14. Proventil tab 4 mg p.o. q.i.d. 15. Lopressor 25 mg p.o. b.i.d. 16. Potassium chloride 20 mEq p.o. daily. 17. Glipizide 2.5 mg p.o. daily. 18. Vitamin D 1000 units p.o. daily. 19. Hydrochlorothiazide 25 mg p.o. daily. 20. Oxybutynin 10 mg p.o. daily. New medications on discharge: None. Medications discontinued at discharge: None. HOSPITAL COURSE: This is a brief summary of the patient's presentation. For more details, please see the history and physical from Dr. Piotr Kumar on . In brief, the patient is an 88-year-old male with past medical history significant for the above, presented to the emergency department with 2 to 3 days of decreased p.o. intake, productive cough, and lethargy as well as fever. The patient had studies as above consistent with community-acquired pneumonia , was admitted to the hospital, started on ceftriaxone and azithromycin. The patient was noted to be wheezing, was started on steroids, Solu-Medrol which caused significant hyperglycemia. With the weaning of the patient's steroids and an increase in his basal and meal-time insulin, the patient's blood sugar was able to be controlled. The patient's mental state improved. There was some concern the patient was aspirating, predisposing him to pneumonia but a speech therapy consult showed no difficulty swallowing but it was recommended the patient sit up while he was eating. The patient had initially an elevated lactic acid which normalized on the second day of his hospitalization. The patient improved greatly during his hospitalization, but there were some residual concerns regarding his gait, inability to take care of himself at home. The patient had acute PT while in the hospital, improved greatly as well with the treatment of his pneumonia and on the day before discharge, was able to ambulate around the unit entirely with minimal assistance. The patient's discharge was delayed 1 day due to his , the primary caregiver, being sick; however, she felt much better on 10/08/19, and the patient was stable and amenable for discharge to home at that time. PHYSICAL EXAMINATION ON THE DAY OF DISCHARGE: General: The patient is an 88- year- old male, who appears stated age, sitting comfortably in bed, in no acute distress. Vital signs: Temperature 97.1, pulse rate 61, respiratory rate 20, oxygen saturation 96% on room air, blood pressure 142/67. HEENT: Head: Normocephalic, atraumatic. Sclerae anicteric. No conjunctival injection. Nasal mucosa moist. Oral mucosa moist. No oropharyngeal erythema, discharge, or exudate. Neck: Supple and nontender. No lymphadenopathy. No carotid bruit auscultated. No JVD. Cardiac: Regular rate and rhythm. No clicks, murmurs, gallops, or rubs. Pulses 2+ in the dorsalis pedis, posterior tibialis, and radial areas. Respiratory: Clear to auscultation bilaterally. No wheezes, rales, or rhonchi. Good air exchange bilaterally. Abdomen: Soft, nontender, and nondistended. Bowel sounds present and normoactive in all 4 quadrants. No hepatosplenomegaly. No abdominal bruits auscultated. No hepatojugular reflux. Genitourinary: No suprapubic or CVA tenderness. Skin: Clean, dry, and intact. No rash. Neuro: Cranial nerves II through XII intact. Very hard of hearing. No focal deficits. Normal gait. Alert and oriented x3. Psychiatric : Pleasant and cooperative. DISCHARGE PLAN BY PROBLEM: 1. Community-acquired pneumonia, sepsis, acute respiratory failure with hypoxia. The patient is back to his baseline. The patient finished 7 days of antibiotics. The patient has no ongoing speech therapy concerns. His family has been recommended to have him sit up while he eats. The patient's dietary changes may be considered if the patient has recurrent pneumonia. 2. Chronic obstructive pulmonary disease exacerbation. It is likely caused by pneumonia. Continue the patient's montelukast and albuterol as well as the patient's Dulera. 3. History of coronary artery disease. Continue the patient's aspirin, Plavix , and Lipitor as well as his metoprolol. 4. Diabetes mellitus type 2. The patient's blood sugars are very well controlled in the hospital. Continue the patient's home glipizide and . 5. History of stroke. Continue the patient's aspirin, Plavix, and statin as above. Home physical therapy to promote independence. DISPOSITION: Home. CONDITION: Stable. TIME SPENT: Approximately 60 minutes was spent on the discharge of this patient, 30 of which was spent [id number] with the patient obtaining history and physical and discussing treatment plan. IRIS SHEIKH [id number]/[facility] #: [id number] MARCELO
== END 2019-10-08 11:59 | disposition home health service (06) | DRG 871 ==
LOC: ED 22:00 → MEDTELE 10-01 02:30
PROVIDERS: ADMIT Internal Medicine; ATTEND Internal Medicine
DX: A41.9 Sepsis, unspecified organism (principal); J18.9 Pneumonia, unspecified organism; J96.01 Acute respiratory failure with hypoxia; J44.1 Chronic obstructive pulmonary disease with (acute) exacerbation; J44.0 Chronic obstructive pulmonary disease with (acute) lower respiratory infection; N17.9 Acute kidney failure, unspecified; E87.2 Acidosis; I10 Essential (primary) hypertension; R13.10 Dysphagia, unspecified; F03.90 Unspecified dementia, unspecified severity, without behavioral disturbance, psychotic disturbance, mood disturbance, and anxiety; I25.10 Atherosclerotic heart disease of native coronary artery without angina pectoris; E11.40 Type 2 diabetes mellitus with diabetic neuropathy, unspecified; I71.9 Aortic aneurysm of unspecified site, without rupture; E11.65 Type 2 diabetes mellitus with hyperglycemia; T38.0X5A Adverse effect of glucocorticoids and synthetic analogues, initial encounter; Y92.230 Patient room in hospital as the place of occurrence of the external cause; E86.0 Dehydration; E78.5 Hyperlipidemia, unspecified; E78.00 Pure hypercholesterolemia, unspecified; M16.0 Bilateral primary osteoarthritis of hip; M19.042 Primary osteoarthritis, left hand; M19.041 Primary osteoarthritis, right hand; I71.4 Abdominal aortic aneurysm, without rupture; R00.1 Bradycardia, unspecified; I44.1 Atrioventricular block, second degree; R79.89 Other specified abnormal findings of blood chemistry; Z95.5 Presence of coronary angioplasty implant and graft; Z79.4 Long term (current) use of insulin; Z79.02 Long term (current) use of antithrombotics/antiplatelets; Z79.82 Long term (current) use of aspirin; Z79.899 Other long term (current) drug therapy; Z85.46 Personal history of malignant neoplasm of prostate; Z92.3 Personal history of irradiation; Z88.8 Allergy status to other drugs, medicaments and biological substances; Z87.891 Personal history of nicotine dependence; I25.2 Old myocardial infarction; Z92.21 Personal history of antineoplastic chemotherapy; I69.354 Hemiplegia and hemiparesis following cerebral infarction affecting left non-dominant side; I69.320 Aphasia following cerebral infarction; I69.391 Dysphagia following cerebral infarction; Z28.21 Immunization not carried out because of patient refusal
CPT/HCPCS: 36415; 71045; 71275; 80048; 80053; 81003; 81015; 82010; 82040; 82803; 82947; 83036; 83605; 83690; 83880; 84484; 85025; 85610; 86140; 87040; 87086; 93005; 94640; 99285; A9270-GY; G8978-GP-CK; G8979-GP-CH; J0456; J0696; J1650; J2920; J7512; Q9967

== ENCOUNTER 2020-09-05 12:49 | Inpatient (IN) ==
[2020-09-05] MEDS ORDERED: NS 0.9% 1000 ml BAG 1,000 ML IV ONE ×2 (13:08→15:18)
[2020-09-05] MEDS ORDERED: Albuterol HFA INHALER 8 gm MDI INH ONE (13:28)
[2020-09-05] MEDS ORDERED: methylPREDNISolone 125 mg 2 ML VIAL IV ONE (13:35)
[2020-09-05 15:04] LABS: ABS Eosinophils 0.3 10^3/ul (0-0.6); ABS Monocytes 0.5 10^3/ul (0-0.8); ABS Neutrophils 5.3 10^3/ul (1.5-7.7); Eosinophil % 4.1 %; Hematocrit 39 % (42-52); Lymphocyte % 13.6 %; Mean Corpuscular HGB Conc 34 g/dL (31-36); Mean Corpuscular Hemoglobin 30 pg (27-31); Mean Corpuscular Volume 90 fL (80-94); Platelet Count 166 10^3/uL (150-450); Red Blood Count 4.29 10^6 /uL (4.18-5.48); Red Cell Distribution Width 14 % (10-15); White Blood Count 7.1 10^3/uL (3.5-10.8)
[2020-09-05 15:15] LABS: ALT 27 U/L (7-52); AST 31 U/L (13-39); Albumin 3.9 g/dL (3.2-5.2); Albumin/Globulin Ratio 1.6 (1-3); Alkaline Phosphatase 90 U/L (34-104); Anion Gap 10 mmol/L (2-11); BUN/Creatinine Ratio 13.7 (8-20); Blood Urea Nitrogen 20 mg/dL (6-24); CO2 Carbon Dioxide 21 mmol/L (22-32); Calcium 9.7 mg/dL (8.6-10.3); Chloride 101 mmol/L (101-111); EGFR African American 55.3 (>60); EGFR Non-African American 45.7 (>60); Globulin 2.5 g/dL (2-4); Glucose 401 mg/dL (70-100); Magnesium 1.7 mg/dL (1.9-2.7); Sodium 132 mmol/L (135-145); Total Protein 6.4 g/dL (6.4-8.9)
[2020-09-05 15:21] LABS: Troponin I 0.04 ng/mL (<0.03)
[2020-09-05 15:40] LABS: Urine Appearance Clear; Urine Bilirubin Negative (Negative); Urine Blood Negative (Negative); Urine Color Yellow; Urine Glucose 3+(>=500 mg/dL) (Negative); Urine Ketones Negative (Negative); Urine Nitrite Negative (Negative); Urine Protein Negative (Negative); Urine Specific Gravity 1.017 (1.010-1.030); Urine Urobilinogen Negative (Negative)
[2020-09-05 15:44] LABS: Activated Partial Thrombo Time 25.7 seconds (26.0-38.0); INR 0.98 (0.82-1.09)
[2020-09-05 15:47] LABS: Influenza A Molecular Negative (Negative); Influenza B Molecular Negative (Negative)
[2020-09-05 15:51] LABS: TSH Ultra Thyroid Stim Horm 2.31 mcIU/mL (0.34-5.60)
[2020-09-05] MEDS ORDERED: cefTRIAXone 1 gm/50 mL NS BAG 1 GM/50 ML BAG IV ONE (18:12)
[2020-09-05] MEDS ORDERED: Azithromycin 500 mg/250 ml NS 500 MG/250 ML BAG IVPB ONE (18:12)
[2020-09-05 19:14] LABS: Troponin I 0.04 ng/mL (<0.03)
[2020-09-05] MEDS ORDERED: ALBUTEROL 4 MG PO PRN (20:27)
[2020-09-05] MEDS ORDERED: Magnesium Sulfate 2 gm BAG 2 GM/50 ML BAG IVPB ONE (20:36)
[2020-09-05] MEDS ORDERED: Dextrose 50% Syringe 50 ml 25 GM/50 ML SYRINGE IV PUSH PRN (20:37)
[2020-09-05] MEDS ORDERED: Albuterol 2.5mg/3 ml (0.083%) NEB.SOLN INH PRN (20:39)
[2020-09-05] MEDS ORDERED: Albuterol HFA INHALER 8 gm MDI INH PRN ×2 (21:12→21:15)
[2020-09-06 00:04] LABS: Troponin I 0.04 ng/mL (<0.03)
[2020-09-06] MEDS ORDERED: NS 0.9% 500 ml BAG 500 ML IV SCH (01:00)
[2020-09-06] MEDS: methylPREDNISolone SOD 40 mg/ml 1 ml VIAL IV SCH ×2 (01:23→14:06)
[2020-09-06 04:15] LABS: ABS Basophils 0.1 10^3/ul (0-0.2); ABS Lymphocytes 0.9 10^3/ul (1.0-4.8); ABS Monocytes 0.2 10^3/ul (0-0.8); Eosinophil % 0.3 %; Hematocrit 39 % (42-52); Hemoglobin 13.1 g/dL (14.0-18.0); Lymphocyte % 7.5 %; Mean Corpuscular HGB Conc 33 g/dL (31-36); Mean Corpuscular Hemoglobin 30 pg (27-31); Mean Corpuscular Volume 89 fL (80-94); Mean Platelet Volume 9.3 fL (7.4-10.4); Platelet Count 186 10^3/uL (150-450); Red Blood Count 4.38 10^6 /uL (4.18-5.48); Red Cell Distribution Width 14 % (10-15); White Blood Count 12.3 10^3/uL (3.5-10.8)
[2020-09-06 04:36] LABS: BUN/Creatinine Ratio 15.4 (8-20); Calcium 9.2 mg/dL (8.6-10.3); EGFR African American 63.2 (>60); EGFR Non-African American 52.2 (>60); Magnesium 2.7 mg/dL (1.9-2.7); Potassium 4.5 mmol/L (3.5-5.0)
[2020-09-06] MEDS ORDERED: NS 0.9% 500 ml BAG 500 ML IV ONE (04:45)
[2020-09-06] MEDS ORDERED: Potassium Chlor 20 meq TAB.ER PO SCH (09:00)
[2020-09-06] MEDS: Cholecalciferol (VIT D3) 1,000 unit TAB PO SCH (09:22)
[2020-09-06] MEDS: Aspirin EC 81 mg TAB.EC (enteric coated) PO SCH (09:23)
[2020-09-06] MEDS: SPIRIVA Respimat (tiotropium) 2.5 mcg/inh Inhaler INH SCH (09:53)
[2020-09-06] MEDS: Mometasone/Formoter 200/5 MDI INH SCH ×2 (09:53→19:20)
[2020-09-06] MEDS ORDERED: Insulin GLARGINE 100 un/ml 10 ml VIAL SUBCUT SCH (17:00)
[2020-09-06] MEDS ORDERED: cefTRIAXone 1 gm/50 mL NS BAG 1 GM/50 ML BAG IVPB SCH (18:00)
[2020-09-06] MEDS ORDERED: Azithromycin 500 mg/250 ml NS 500 MG/250 ML BAG IVPB SCH (21:30)
[2020-09-06] MEDS ORDERED: Insulin GLARGINE 100 un/ml 10 ml VIAL SUBCUT ONE (21:47)
[2020-09-07 06:30] LABS: ABS Basophils 0.1 10^3/ul (0-0.2); ABS Lymphocytes 1.5 10^3/ul (1.0-4.8); ABS Monocytes 1.3 10^3/ul (0-0.8); ABS Neutrophils 11.1 10^3/ul (1.5-7.7); Eosinophil % 0.2 %; Hematocrit 35 % (42-52); Lymphocyte % 10.9 %; Mean Corpuscular HGB Conc 34 g/dL (31-36); Mean Corpuscular Hemoglobin 30 pg (27-31); Mean Corpuscular Volume 88 fL (80-94); Mean Platelet Volume 9.1 fL (7.4-10.4); Platelet Count 223 10^3/uL (150-450); Red Blood Count 4.01 10^6 /uL (4.18-5.48); Red Cell Distribution Width 14 % (10-15); White Blood Count 14.1 10^3/uL (3.5-10.8)
[2020-09-07 06:38] LABS: BUN/Creatinine Ratio 22.3 (8-20); Calcium 8.8 mg/dL (8.6-10.3); EGFR African American 68.6 (>60); EGFR Non-African American 56.7 (>60); Potassium 4.1 mmol/L (3.5-5.0)
[2020-09-07] MEDS: Mometasone/Formoter 200/5 MDI INH SCH (08:07)
[2020-09-07] MEDS: SPIRIVA Respimat (tiotropium) 2.5 mcg/inh Inhaler INH SCH (08:07)
[2020-09-07] MEDS: Cholecalciferol (VIT D3) 1,000 unit TAB PO SCH (08:26)
[2020-09-07] MEDS: Aspirin EC 81 mg TAB.EC (enteric coated) PO SCH (08:30)
[2020-09-07 14:48] VITALS: BP 158/82
[2020-09-07] MEDS ORDERED: Insulin GLARGINE 100 un/ml 10 ml VIAL SUBCUT SCH (18:00)
== END 2020-09-07 15:45 | disposition home or self-care (01) | DRG 192 ==
LOC: MED 12:49 → ED 12:49 → MED 23:31
PROVIDERS: ADMIT Internal Medicine; ATTEND Internal Medicine

== ENCOUNTER 2020-09-19 11:13 | Inpatient (IN) ==
[2020-09-19 12:21] LABS: ABS Basophils 0.1 10^3/ul (0-0.2); ABS Eosinophils 0.2 10^3/ul (0-0.6); ABS Lymphocytes 0.7 10^3/ul (1.0-4.8); ABS Monocytes 0.6 10^3/ul (0-0.8); ABS Neutrophils 9.3 10^3/ul (1.5-7.7); Eosinophil % 1.6 %; Hematocrit 38 % (42-52); Hemoglobin 12.9 g/dL (14.0-18.0); Lymphocyte % 6.2 %; Mean Corpuscular HGB Conc 34 g/dL (31-36); Mean Corpuscular Hemoglobin 31 pg (27-31); Mean Corpuscular Volume 89 fL (80-94); Mean Platelet Volume 9.1 fL (7.4-10.4); Platelet Count 171 10^3/uL (150-450); Red Blood Count 4.21 10^6 /uL (4.18-5.48); Red Cell Distribution Width 14 % (10-15); White Blood Count 10.8 10^3/uL (3.5-10.8)
[2020-09-19 12:37] LABS: Urine Appearance Cloudy; Urine Bilirubin Negative (Negative); Urine Blood 2+ (Negative); Urine Color Yellow; Urine Glucose 3+(>=500 mg/dL) (Negative); Urine Ketones Negative (Negative); Urine Nitrite Negative (Negative); Urine Protein 2+(100 mg/dL) (Negative); Urine Specific Gravity 1.022 (1.010-1.030); Urine Urobilinogen Negative (Negative)
[2020-09-19 12:39] LABS: ALT 59 U/L (7-52); AST 27 U/L (13-39); Albumin 3.7 g/dL (3.2-5.2); Albumin/Globulin Ratio 1.4 (1-3); Alkaline Phosphatase 120 U/L (34-104); Anion Gap 11 mmol/L (2-11); BUN/Creatinine Ratio 23.7 (8-20); Blood Urea Nitrogen 33 mg/dL (6-24); CO2 Carbon Dioxide 20 mmol/L (22-32); Chloride 102 mmol/L (101-111); EGFR African American 58.5 (>60); EGFR Non-African American 48.3 (>60); Globulin 2.6 g/dL (2-4); Glucose 453 mg/dL (70-100); Influenza A Molecular Negative (Negative); Influenza B Molecular Negative (Negative); Magnesium 2.1 mg/dL (1.9-2.7); Potassium 4.3 mmol/L (3.5-5.0); Sodium 133 mmol/L (135-145); Total Protein 6.3 g/dL (6.4-8.9)
[2020-09-19 12:50] LABS: Troponin I 0.04 ng/mL (<0.03)
[2020-09-19] MEDS ORDERED: Azithromycin IV 500 MG in NS 0.9% 250 ml 250 ML IVPB ONE (12:53)
[2020-09-19] MEDS ORDERED: cefTRIAXone 1 gm/50 mL NS BAG 1 GM/50 ML BAG IV ONE (12:53)
[2020-09-19] MEDS ORDERED: NS 0.9% 1000 ml BAG 1,000 ML IV.FLUID IV ONE (12:53)
[2020-09-19 12:55] LABS: Urine Bacteria Absent (Absent); Urine Red Blood Cell 3+(>10/hpf) (Absent); Urine Squamous Epithelial Cell Present (Absent); Urine White Blood Cell 1+(6-10/hpf) (Absent)
[2020-09-19 13:09] LABS: TSH Ultra Thyroid Stim Horm 1.15 mcIU/mL (0.34-5.60)
[2020-09-19] MEDS ORDERED: Ondansetron 4 mg VIAL 2 MG/ML 2 ml VIAL IV PRN (13:19)
[2020-09-19] MEDS ORDERED: Albuterol 2.5mg/3 ml (0.083%) NEB.SOLN INH PRN (13:19)
[2020-09-19] MEDS ORDERED: Dextrose 50% Syringe 50 ml 25 GM/50 ML SYRINGE IV PUSH PRN (13:31)
[2020-09-19] MEDS ORDERED: Levofloxacin 750 MG IVPREMIX 750 MG/150 ML BAG IVPB SCH (14:00)
[2020-09-19 17:22] LABS: Activated Partial Thrombo Time 24.1 seconds (26.0-38.0); INR 0.97 (0.82-1.09)
[2020-09-19 17:49] LABS: Troponin I 0.03 ng/mL (<0.03)
[2020-09-19] MEDS ORDERED: Piperacillin/Tazobac ADVAN 3.375 GM in NS 0.9% 100 ml BAG 100 ML IV ONE (19:34)
[2020-09-19] MEDS ORDERED: Zosyn per Pharmacy NOTE FOLLOW UP SCH (20:00)
[2020-09-19] MEDS: Mometasone/Formoter 200/5 MDI INH SCH (20:18)
[2020-09-19] MEDS: Insulin GLARGINE 100 un/ml 10 ml VIAL SUBCUT SCH (20:59)
[2020-09-19] MEDS: Enoxaparin 30 MG/0.3 ML SYR SUBCUT SCH (21:07)
[2020-09-20] MEDS: ZOSYN 3.375 GM Q8H per EXTENDED INFUSION IV SCH ×3 (02:18→17:25)
[2020-09-20 06:08] LABS: ABS Basophils 0.1 10^3/ul (0-0.2); ABS Eosinophils 0.3 10^3/ul (0-0.6); ABS Lymphocytes 1.6 10^3/ul (1.0-4.8); ABS Monocytes 0.6 10^3/ul (0-0.8); ABS Neutrophils 6.6 10^3/ul (1.5-7.7); Eosinophil % 3.7 %; Hematocrit 35 % (42-52); Hemoglobin 12.2 g/dL (14.0-18.0); Lymphocyte % 17.6 %; Mean Corpuscular HGB Conc 34 g/dL (31-36); Mean Corpuscular Hemoglobin 31 pg (27-31); Mean Corpuscular Volume 89 fL (80-94); Mean Platelet Volume 9.1 fL (7.4-10.4); Platelet Count 170 10^3/uL (150-450); Red Blood Count 3.97 10^6 /uL (4.18-5.48); Red Cell Distribution Width 14 % (10-15); White Blood Count 9.3 10^3/uL (3.5-10.8)
[2020-09-20 06:11] LABS: BUN/Creatinine Ratio 18.2 (8-20); Calcium 8.5 mg/dL (8.6-10.3); EGFR African American 68.6 (>60); EGFR Non-African American 56.7 (>60); Magnesium 1.9 mg/dL (1.9-2.7)
[2020-09-20 06:48] LABS: Potassium 4.2 mmol/L (3.5-5.0)
[2020-09-20] MEDS: Mometasone/Formoter 200/5 MDI INH SCH ×2 (07:50→19:47)
[2020-09-20] MEDS ORDERED: Magnesium Hydroxide LIQ 30 ML UDC PO PRN (07:56)
[2020-09-20] MEDS ORDERED: Senna TAB 8.6 mg TAB PO PRN (07:56)
[2020-09-20] MEDS: Calcium Carb (TUMS) 500 mg CHEW TAB PO SCH (10:23)
[2020-09-20] MEDS: Aspirin EC 81 mg TAB.EC (enteric coated) PO SCH (10:23)
[2020-09-20] MEDS: Cholecalciferol (VIT D3) 1,000 unit TAB PO SCH (10:23)
[2020-09-20] MEDS: Potassium Chlor 20 meq TAB.ER PO SCH (10:24)
[2020-09-20] MEDS: Enoxaparin 30 MG/0.3 ML SYR SUBCUT SCH (13:45)
[2020-09-20] MEDS: Insulin GLARGINE 100 un/ml 10 ml VIAL SUBCUT SCH ×2 (17:27→17:37)
[2020-09-21] MEDS: ZOSYN 3.375 GM Q8H per EXTENDED INFUSION IV SCH ×3 (00:29→17:37)
[2020-09-21 07:55] LABS: Calcium 8.4 mg/dL (8.6-10.3); Potassium 4.3 mmol/L (3.5-5.0)
[2020-09-21] MEDS: Mometasone/Formoter 200/5 MDI INH SCH ×2 (07:58→19:12)
[2020-09-21 08:01] LABS: BUN/Creatinine Ratio 18.7 (8-20); EGFR African American 53.6 (>60); EGFR Non-African American 44.3 (>60)
[2020-09-21] MEDS: Potassium Chlor 20 meq TAB.ER PO SCH (09:54)
[2020-09-21] MEDS: Cholecalciferol (VIT D3) 1,000 unit TAB PO SCH (09:54)
[2020-09-21] MEDS: Aspirin EC 81 mg TAB.EC (enteric coated) PO SCH (09:55)
[2020-09-21] MEDS: Calcium Carb (TUMS) 500 mg CHEW TAB PO SCH (09:55)
[2020-09-21 09:58] LABS: C Reactive Protein 21.92 mg/L (<8.01)
[2020-09-21 10:23] LABS: ABS Lymphocytes 1.5 10^3/ul (1.0-4.8); ABS Monocytes 0.8 10^3/ul (0-0.8); ABS Neutrophils 6.7 10^3/ul (1.5-7.7); Eosinophil % 0.4 %; Hematocrit 36 % (42-52); Hemoglobin 12.2 g/dL (14.0-18.0); Mean Corpuscular HGB Conc 34 g/dL (31-36); Mean Corpuscular Hemoglobin 30 pg (27-31); Mean Corpuscular Volume 89 fL (80-94); Mean Platelet Volume 8.7 fL (7.4-10.4); Platelet Count 225 10^3/uL (150-450); Red Blood Count 4.05 10^6 /uL (4.18-5.48); Red Cell Distribution Width 14 % (10-15); White Blood Count 9.1 10^3/uL (3.5-10.8)
[2020-09-21] MEDS: Enoxaparin 30 MG/0.3 ML SYR SUBCUT SCH (13:14)
[2020-09-21] MEDS: Insulin GLARGINE 100 un/ml 10 ml VIAL SUBCUT SCH (17:38)
[2020-09-21] MEDS ORDERED: Dextrose 50% Syringe 50 ml 25 GM/50 ML SYRINGE IV PUSH PRN (20:49)
[2020-09-22] MEDS: ZOSYN 3.375 GM Q8H per EXTENDED INFUSION IV SCH ×2 (01:39→09:36)
[2020-09-22] MEDS: Mometasone/Formoter 200/5 MDI INH SCH (08:01)
[2020-09-22] MEDS: Cholecalciferol (VIT D3) 1,000 unit TAB PO SCH (09:42)
[2020-09-22] MEDS: Potassium Chlor 20 meq TAB.ER PO SCH (09:43)
[2020-09-22] MEDS: Aspirin EC 81 mg TAB.EC (enteric coated) PO SCH (09:43)
[2020-09-22] MEDS: Calcium Carb (TUMS) 500 mg CHEW TAB PO SCH (09:44)
[2020-09-22] MEDS: Enoxaparin 30 MG/0.3 ML SYR SUBCUT SCH (13:39)
[2020-09-22 18:21] VITALS: BP 137/72
== END 2020-09-22 17:00 | disposition home health service (06) | DRG 194 ==
LOC: ED 11:13 → MED 11:13
PROVIDERS: ADMIT Student in an Organized Health Care Education/Training Program; ATTEND Internal Medicine

== ENCOUNTER 2020-12-16 17:31 | Inpatient (IN) ==
[2020-12-16 18:12] LABS: ABS Eosinophils 0.6 10^3/ul (0-0.6); ABS Lymphocytes 0.8 10^3/ul (1.0-4.8); ABS Monocytes 0.8 10^3/ul (0-0.8); ABS Neutrophils 8.4 10^3/ul (1.5-7.7); Eosinophil % 5.6 %; Hematocrit 38 % (42-52); Hemoglobin 12.7 g/dL (14.0-18.0); Lymphocyte % 7.8 %; Mean Corpuscular HGB Conc 34 g/dL (31-36); Mean Corpuscular Hemoglobin 30 pg (27-31); Mean Corpuscular Volume 89 fL (80-94); Mean Platelet Volume 8.9 fL (7.4-10.4); Nucleated Red Blood Cells % 0.1; Platelet Count 213 10^3/uL (150-450); Red Blood Count 4.26 10^6 /uL (4.18-5.48); Red Cell Distribution Width 14 % (10-15); White Blood Count 10.7 10^3/uL (3.5-10.8)
[2020-12-16 18:32] LABS: ALT 21 U/L (7-52); AST 34 U/L (13-39); Albumin/Globulin Ratio 1.5 (1-3); Alkaline Phosphatase 84 U/L (34-104); BUN/Creatinine Ratio 12.5 (8-20); Blood Urea Nitrogen 16 mg/dL (6-24); C Reactive Protein 4.95 mg/L (<8.01); CO2 Carbon Dioxide 22 mmol/L (22-32); Calcium 9.6 mg/dL (8.6-10.3); Chloride 102 mmol/L (101-111); EGFR African American 64.2 (>60); Globulin 2.7 g/dL (2-4); Glucose 322 mg/dL (70-100); Sodium 133 mmol/L (135-145); Total Protein 6.7 g/dL (6.4-8.9)
[2020-12-16 18:37] LABS: Anion Gap 9 mmol/L (2-11); Potassium 5.9 mmol/L (3.5-5.0)
[2020-12-16 18:38] LABS: Troponin I 0.09 ng/mL (<0.03)
[2020-12-16] MEDS ORDERED: NS 0.9% 1000 ml BAG 1,000 ML IV ONE (18:40)
[2020-12-16] MEDS ORDERED: cefTRIAXone 2 GM ADDV.VIAL 2 GM in NS 0.9% 100 ml BAG 100 ML IVPB ONE (22:21)
[2020-12-16] MEDS ORDERED: methylPREDNISolone SOD 40 mg/ml 1 ml VIAL IV SCH (23:00)
[2020-12-16] MEDS ORDERED: Dextrose 50% Syringe 50 ml 25 GM/50 ML SYRINGE IV PUSH PRN (23:40)
[2020-12-17] MEDS ORDERED: methylPREDNISolone SOD 40 mg/ml 1 ml VIAL ONE (00:03)
[2020-12-17] MEDS: Albuterol/Ipratropium NEB.SOL (2.5/0.5 MG) 3 ML NEB.SOLN INH PRN ×2 (00:26→08:34)
[2020-12-17 00:59] LABS: BUN/Creatinine Ratio 14.3 (8-20); Blood Urea Nitrogen 17 mg/dL (6-24); CO2 Carbon Dioxide 22 mmol/L (22-32); Calcium 9.3 mg/dL (8.6-10.3); Chloride 103 mmol/L (101-111); EGFR African American 69.8 (>60); EGFR Non-African American 57.7 (>60); Glucose 315 mg/dL (70-100); Sodium 134 mmol/L (135-145)
[2020-12-17 01:01] LABS: Anion Gap 9 mmol/L (2-11); Potassium 5.4 mmol/L (3.5-5.0)
[2020-12-17 01:02] LABS: Troponin I 0.07 ng/mL (<0.03)
[2020-12-17] MEDS ORDERED: NS 0.9% 1000 ml BAG 1,000 ML IV SCH (01:15)
[2020-12-17] MEDS: Heparin 5000 UNITS/ML 1 mL VIAL SUBCUT SCH ×3 (05:04→22:01)
[2020-12-17 06:46] LABS: ABS Lymphocytes 0.8 10^3/ul (1.0-4.8); ABS Monocytes 0.1 10^3/ul (0-0.8); ABS Neutrophils 7.2 10^3/ul (1.5-7.7); Hematocrit 36 % (42-52); Hemoglobin 12.3 g/dL (14.0-18.0); Lymphocyte % 9.6 %; Mean Corpuscular HGB Conc 34 g/dL (31-36); Mean Corpuscular Hemoglobin 30 pg (27-31); Mean Corpuscular Volume 88 fL (80-94); Mean Platelet Volume 9.2 fL (7.4-10.4); Platelet Count 192 10^3/uL (150-450); Red Blood Count 4.09 10^6 /uL (4.18-5.48); Red Cell Distribution Width 14 % (10-15); White Blood Count 8.2 10^3/uL (3.5-10.8)
[2020-12-17 06:47] LABS: Eosinophil % 0.2 %
[2020-12-17 06:49] LABS: Urine Appearance Clear; Urine Bilirubin Negative (Negative); Urine Blood 1+ (Negative); Urine Color Yellow; Urine Glucose 3+(>=500 mg/dL) (Negative); Urine Ketones Trace (Negative); Urine Nitrite Negative (Negative); Urine Protein 2+(100 mg/dL) (Negative); Urine Specific Gravity 1.016 (1.010-1.030); Urine Urobilinogen Negative (Negative)
[2020-12-17 07:11] LABS: Urine Bacteria Absent (Absent); Urine Red Blood Cell 1+(3-5/hpf) (Absent); Urine White Blood Cell Absent (Absent)
[2020-12-17 07:12] LABS: Urine Squamous Epithelial Cell Present (Absent)
[2020-12-17 07:13] LABS: BUN/Creatinine Ratio 16.8 (8-20); Calcium 9.2 mg/dL (8.6-10.3); EGFR African American 74.1 (>60); EGFR Non-African American 61.2 (>60)
[2020-12-17 07:15] LABS: Potassium 5.3 mmol/L (3.5-5.0)
[2020-12-17] MEDS: Aspirin EC 81 mg TAB.EC (enteric coated) PO SCH (08:20)
[2020-12-17] MEDS: methylPREDNISolone SOD 40 mg/ml 1 ml VIAL IV SCH ×3 (08:22→23:47)
[2020-12-17] MEDS ORDERED: Furosemide 20 mg/2 ml IV VIAL IV ONE (08:39)
[2020-12-17] MEDS ORDERED: Calcium Carb (TUMS) 500 mg CHEW TAB PO SCH (09:00)
[2020-12-17] MEDS ORDERED: Cholecalciferol (VIT D3) 1,000 unit TAB PO SCH (09:00)
[2020-12-17] MEDS ORDERED: Albuterol/Ipratropium NEB.SOL (2.5/0.5 MG) 3 ML NEB.SOLN ONE (09:04)
[2020-12-17] MEDS: Albuterol/Ipratropium NEB.SOL (2.5/0.5 MG) 3 ML NEB.SOLN INH SCH ×4 (09:24→23:31)
[2020-12-17] MEDS: SODIUM ZIRCONIUM CYCLOSILICATE 10 GM PACKET PO SCH ×2 (10:30→20:46)
[2020-12-17 17:28] LABS: BUN/Creatinine Ratio 20.5 (8-20); Calcium 8.9 mg/dL (8.6-10.3); EGFR African American 71.2 (>60); EGFR Non-African American 58.8 (>60); Potassium 4.4 mmol/L (3.5-5.0)
[2020-12-17] MEDS: Insulin GLARGINE 100 un/ml 10 ml VIAL SUBCUT SCH (17:45)
[2020-12-17] MEDS ORDERED: Morphine 2 MG/ML SYRINGE ONE (18:23)
[2020-12-18] MEDS: Albuterol/Ipratropium NEB.SOL (2.5/0.5 MG) 3 ML NEB.SOLN INH SCH ×7 (03:45→23:37)
[2020-12-18] MEDS: Heparin 5000 UNITS/ML 1 mL VIAL SUBCUT SCH ×3 (06:03→21:22)
[2020-12-18] MEDS ORDERED: Perflutren Lipid Microsphere 3 ML VIAL ONE (08:07)
[2020-12-18] MEDS: Aspirin EC 81 mg TAB.EC (enteric coated) PO SCH (09:28)
[2020-12-18] MEDS: methylPREDNISolone SOD 40 mg/ml 1 ml VIAL IV SCH ×2 (09:29→17:26)
[2020-12-18] MEDS: Insulin GLARGINE 100 un/ml 10 ml VIAL SUBCUT SCH (17:26)
[2020-12-18] MEDS: hydrALAZINE 20 mg/ml 1 ML Vial IV IV SLOW PU PRN (18:56)
[2020-12-19] MEDS: methylPREDNISolone SOD 40 mg/ml 1 ml VIAL IV SCH ×4 (00:19→22:18)
[2020-12-19] MEDS: Albuterol/Ipratropium NEB.SOL (2.5/0.5 MG) 3 ML NEB.SOLN INH SCH ×2 (03:18→07:53)
[2020-12-19 05:06] LABS: BUN/Creatinine Ratio 28.5 (8-20); Calcium 9.3 mg/dL (8.6-10.3); EGFR African American 67.2 (>60); EGFR Non-African American 55.5 (>60); Magnesium 2.2 mg/dL (1.9-2.7); Phosphorus 2.8 mg/dL (2.5-5.0); Potassium 3.7 mmol/L (3.5-5.0)
[2020-12-19] MEDS ORDERED: NS 0.9% 500 ml BAG 500 ML IV ONE ×2 (05:19→06:04)
[2020-12-19] MEDS: hydrALAZINE 20 mg/ml 1 ML Vial IV IV SLOW PU PRN ×3 (05:32→22:19)
[2020-12-19] MEDS: Heparin 5000 UNITS/ML 1 mL VIAL SUBCUT SCH ×3 (05:36→21:10)
[2020-12-19] MEDS: Aspirin EC 81 mg TAB.EC (enteric coated) PO SCH (09:08)
[2020-12-19] MEDS ORDERED: Insulin GLARGINE 100 un/ml 10 ml VIAL SUBCUT SCH (17:00)
[2020-12-20] MEDS: Heparin 5000 UNITS/ML 1 mL VIAL SUBCUT SCH ×3 (05:06→21:29)
[2020-12-20 05:41] LABS: BUN/Creatinine Ratio 35.2 (8-20); Blood Urea Nitrogen 37 mg/dL (6-24); CO2 Carbon Dioxide 21 mmol/L (22-32); Calcium 8.4 mg/dL (8.6-10.3); EGFR African American 80.7 (>60); EGFR Non-African American 66.7 (>60); Glucose 130 mg/dL (70-100); Sodium 142 mmol/L (135-145)
[2020-12-20 06:22] LABS: Anion Gap 8 mmol/L (2-11); Chloride 113 mmol/L (101-111)
[2020-12-20] MEDS: Aspirin EC 81 mg TAB.EC (enteric coated) PO SCH (08:27)
[2020-12-20] MEDS: methylPREDNISolone SOD 40 mg/ml 1 ml VIAL IV SCH (08:31)
[2020-12-20] MEDS ORDERED: Potassium Chlor 20 meq TAB.ER PO ONE (09:29)
[2020-12-20] MEDS ORDERED: Potassium Chloride LIQUID 20 MEQ/15 ML LIQUID PO ONE (11:30)
[2020-12-20] MEDS ORDERED: Albuterol/Ipratropium NEB.SOL (2.5/0.5 MG) 3 ML NEB.SOLN INH SCH ×2 (13:00→19:00)
[2020-12-20] MEDS: Albuterol/Ipratropium NEB.SOL (2.5/0.5 MG) 3 ML NEB.SOLN INH SCH (16:34)
[2020-12-20] MEDS ORDERED: Insulin GLARGINE 100 un/ml 10 ml VIAL SUBCUT SCH (17:00)
[2020-12-21] MEDS: Albuterol/Ipratropium NEB.SOL (2.5/0.5 MG) 3 ML NEB.SOLN INH SCH ×4 (00:33→20:06)
[2020-12-21] MEDS: Heparin 5000 UNITS/ML 1 mL VIAL SUBCUT SCH ×3 (07:42→22:43)
[2020-12-21] MEDS: Aspirin EC 81 mg TAB.EC (enteric coated) PO SCH (09:42)
[2020-12-21] MEDS ORDERED: Aspirin EC 325 mg TAB.EC ONE (10:25)
[2020-12-21] MEDS ORDERED: Aspirin EC 81 mg TAB.EC (enteric coated) ONE (10:26)
[2020-12-21] MEDS: hydrALAZINE 20 mg/ml 1 ML Vial IV IV SLOW PU PRN (12:17)
[2020-12-21 14:29] LABS: ABS Eosinophils 0.1 10^3/ul (0-0.6); ABS Lymphocytes 1.3 10^3/ul (1.0-4.8); ABS Monocytes 0.7 10^3/ul (0-0.8); ABS Neutrophils 6.6 10^3/ul (1.5-7.7); Eosinophil % 0.7 %; Hematocrit 39 % (42-52); Hemoglobin 13.1 g/dL (14.0-18.0); Lymphocyte % 15.1 %; Mean Corpuscular HGB Conc 34 g/dL (31-36); Mean Corpuscular Hemoglobin 29 pg (27-31); Mean Corpuscular Volume 88 fL (80-94); Mean Platelet Volume 8.2 fL (7.4-10.4); Platelet Count 212 10^3/uL (150-450); Red Blood Count 4.46 10^6 /uL (4.18-5.48); Red Cell Distribution Width 14 % (10-15); White Blood Count 8.7 10^3/uL (3.5-10.8)
[2020-12-21 14:51] LABS: BUN/Creatinine Ratio 34.2 (8-20); Calcium 8.6 mg/dL (8.6-10.3); EGFR African American 73.4 (>60); EGFR Non-African American 60.6 (>60)
[2020-12-21] MEDS: Insulin GLARGINE 100 un/ml 10 ml VIAL SUBCUT SCH (17:01)
[2020-12-22] MEDS: Heparin 5000 UNITS/ML 1 mL VIAL SUBCUT SCH ×3 (05:23→22:27)
[2020-12-22] MEDS: SPIRIVA Respimat (tiotropium) 2.5 mcg/inh Inhaler INH SCH (07:58)
[2020-12-22] MEDS: Aspirin EC 81 mg TAB.EC (enteric coated) PO SCH (09:58)
[2020-12-22] MEDS: Insulin GLARGINE 100 un/ml 10 ml VIAL SUBCUT SCH (17:34)
[2020-12-23] MEDS: Heparin 5000 UNITS/ML 1 mL VIAL SUBCUT SCH ×3 (06:48→20:30)
[2020-12-23] MEDS: SPIRIVA Respimat (tiotropium) 2.5 mcg/inh Inhaler INH SCH (07:24)
[2020-12-23] MEDS: Aspirin EC 81 mg TAB.EC (enteric coated) PO SCH (10:14)
[2020-12-23] MEDS: Insulin GLARGINE 100 un/ml 10 ml VIAL SUBCUT SCH (17:59)
[2020-12-23] MEDS: Albuterol/Ipratropium NEB.SOL (2.5/0.5 MG) 3 ML NEB.SOLN INH PRN (20:15)
[2020-12-23] MEDS ORDERED: Insulin GLARGINE 100 un/ml 10 ml VIAL SUBCUT ONE (21:00)
[2020-12-24] MEDS: Albuterol/Ipratropium NEB.SOL (2.5/0.5 MG) 3 ML NEB.SOLN INH PRN (03:17)
[2020-12-24] MEDS: Heparin 5000 UNITS/ML 1 mL VIAL SUBCUT SCH ×3 (05:46→21:16)
[2020-12-24] MEDS: SPIRIVA Respimat (tiotropium) 2.5 mcg/inh Inhaler INH SCH (08:45)
[2020-12-24] MEDS: Aspirin EC 81 mg TAB.EC (enteric coated) PO SCH (09:28)
[2020-12-24] MEDS: Insulin GLARGINE 100 un/ml 10 ml VIAL SUBCUT SCH (18:08)
[2020-12-24 20:51] LABS: Glucose Confirmatory 422 mg/dL (70-100)
[2020-12-24] MEDS ORDERED: Insulin GLARGINE 100 un/ml 10 ml VIAL SUBCUT ONE (22:49)
[2020-12-25] MEDS: Heparin 5000 UNITS/ML 1 mL VIAL SUBCUT SCH ×3 (05:39→22:12)
[2020-12-25] MEDS: SPIRIVA Respimat (tiotropium) 2.5 mcg/inh Inhaler INH SCH (07:22)
[2020-12-25 08:46] LABS: ABS Basophils 0.1 10^3/ul (0-0.2); ABS Eosinophils 0.1 10^3/ul (0-0.6); ABS Lymphocytes 1.9 10^3/ul (1.0-4.8); ABS Monocytes 0.7 10^3/ul (0-0.8); ABS Neutrophils 5.4 10^3/ul (1.5-7.7); Eosinophil % 0.8 %; Hematocrit 41 % (42-52); Hemoglobin 13.6 g/dL (14.0-18.0); Lymphocyte % 23.3 %; Mean Corpuscular HGB Conc 33 g/dL (31-36); Mean Corpuscular Hemoglobin 29 pg (27-31); Mean Corpuscular Volume 89 fL (80-94); Mean Platelet Volume 8.7 fL (7.4-10.4); Platelet Count 181 10^3/uL (150-450); Red Blood Count 4.66 10^6 /uL (4.18-5.48); Red Cell Distribution Width 14 % (10-15); White Blood Count 8.1 10^3/uL (3.5-10.8)
[2020-12-25 09:02] LABS: BUN/Creatinine Ratio 26.3 (8-20); Calcium 8.5 mg/dL (8.6-10.3); EGFR African American 73.4 (>60); EGFR Non-African American 60.6 (>60); Potassium 3.7 mmol/L (3.5-5.0)
[2020-12-25] MEDS: Aspirin EC 81 mg TAB.EC (enteric coated) PO SCH (09:39)
[2020-12-25] MEDS: Insulin GLARGINE 100 un/ml 10 ml VIAL SUBCUT SCH (17:07)
[2020-12-25] MEDS: Mometasone/Formoter 200/5 MDI INH SCH (22:13)
[2020-12-26 05:56] LABS: ABS Lymphocytes 1.7 10^3/ul (1.0-4.8); ABS Monocytes 0.7 10^3/ul (0-0.8); Eosinophil % 0.2 %; Hematocrit 38 % (42-52); Hemoglobin 12.9 g/dL (14.0-18.0); Lymphocyte % 20.3 %; Mean Corpuscular HGB Conc 34 g/dL (31-36); Mean Corpuscular Hemoglobin 30 pg (27-31); Mean Corpuscular Volume 88 fL (80-94); Mean Platelet Volume 8.8 fL (7.4-10.4); Platelet Count 178 10^3/uL (150-450); Red Blood Count 4.35 10^6 /uL (4.18-5.48); Red Cell Distribution Width 14 % (10-15); White Blood Count 8.4 10^3/uL (3.5-10.8)
[2020-12-26 06:17] LABS: BUN/Creatinine Ratio 25.2 (8-20); Calcium 8.1 mg/dL (8.6-10.3); EGFR African American 69.8 (>60); EGFR Non-African American 57.7 (>60)
[2020-12-26] MEDS: Heparin 5000 UNITS/ML 1 mL VIAL SUBCUT SCH ×3 (08:10→20:55)
[2020-12-26] MEDS: SPIRIVA Respimat (tiotropium) 2.5 mcg/inh Inhaler INH SCH (08:37)
[2020-12-26] MEDS: Mometasone/Formoter 200/5 MDI INH SCH ×2 (08:37→19:54)
[2020-12-26] MEDS: Aspirin EC 81 mg TAB.EC (enteric coated) PO SCH (09:33)
[2020-12-26] MEDS: Magnesium Hydroxide LIQ 30 ML UDC PO PRN (09:49)
[2020-12-26] MEDS: Nystatin TOP POWDER 15 GM BTL TOPICAL SCH ×2 (14:11→20:55)
[2020-12-26 17:45] LABS: Glucose Confirmatory 456 mg/dL (70-100)
[2020-12-26] MEDS ORDERED: Dextrose 50% Syringe 50 ml 25 GM/50 ML SYRINGE IV PUSH PRN (18:06)
[2020-12-26] MEDS: Insulin GLARGINE 100 un/ml 10 ml VIAL SUBCUT SCH (18:08)
[2020-12-26 20:21] LABS: Glucose Confirmatory 545 mg/dL (70-100)
[2020-12-26] MEDS: Senna TAB 8.6 mg TAB PO SCH (20:56)
[2020-12-27] MEDS: Heparin 5000 UNITS/ML 1 mL VIAL SUBCUT SCH ×3 (05:37→20:35)
[2020-12-27 06:00] LABS: Hematocrit 38 % (42-52); Hemoglobin 12.6 g/dL (14.0-18.0); Mean Corpuscular HGB Conc 34 g/dL (31-36); Mean Corpuscular Hemoglobin 29 pg (27-31); Mean Corpuscular Volume 88 fL (80-94); Mean Platelet Volume 9.2 fL (7.4-10.4); Platelet Count 216 10^3/uL (150-450); Red Blood Count 4.29 10^6 /uL (4.18-5.48); Red Cell Distribution Width 13 % (10-15); White Blood Count 11.7 10^3/uL (3.5-10.8)
[2020-12-27 06:23] LABS: BUN/Creatinine Ratio 26.7 (8-20); Calcium 8.3 mg/dL (8.6-10.3); EGFR African American 69.1 (>60); EGFR Non-African American 57.1 (>60); Potassium 3.8 mmol/L (3.5-5.0)
[2020-12-27 06:44] LABS: ABS Lymphocytes 2.1 10^3/ul (1.0-4.8); ABS Monocytes 1.3 10^3/ul (0-0.8); ABS Neutrophils 8.4 10^3/ul (1.5-7.7); Eosinophil % 0.2 %; Lymphocyte % 17.5 %
[2020-12-27] MEDS: Mometasone/Formoter 200/5 MDI INH SCH ×2 (08:17→20:12)
[2020-12-27] MEDS: SPIRIVA Respimat (tiotropium) 2.5 mcg/inh Inhaler INH SCH (08:18)
[2020-12-27] MEDS: Aspirin EC 81 mg TAB.EC (enteric coated) PO SCH (09:24)
[2020-12-27] MEDS: Nystatin TOP POWDER 15 GM BTL TOPICAL SCH ×2 (09:39→20:35)
[2020-12-27 18:45] LABS: Glucose Confirmatory 410 mg/dL (70-100)
[2020-12-27] MEDS: Insulin GLARGINE 100 un/ml 10 ml VIAL SUBCUT SCH (19:15)
[2020-12-27] MEDS: Senna TAB 8.6 mg TAB PO SCH (20:35)
[2020-12-27 20:47] LABS: Urine Appearance Cloudy; Urine Color Red
[2020-12-27 20:56] LABS: Urine Blood 3+ (Negative); Urine Ketones Negative (Negative); Urine Nitrite Positive (Negative); Urine Protein Negative (Negative); Urine Specific Gravity 1.023 (1.010-1.030); Urine Urobilinogen Positive (Negative)
[2020-12-27 20:59] LABS: Urine Bilirubin 1+ (Negative); Urine Glucose 3+(>=500 mg/dL) (Negative)
[2020-12-27 21:09] LABS: Urine Red Blood Cell 3+(>10/hpf) (Absent); Urine White Blood Cell 3+(>20/hpf) (Absent)
[2020-12-27 21:10] LABS: Urine Bacteria 2+ (Absent)
[2020-12-28 05:36] LABS: ABS Eosinophils 0.1 10^3/ul (0-0.6); ABS Lymphocytes 2.2 10^3/ul (1.0-4.8); ABS Neutrophils 8.7 10^3/ul (1.5-7.7); Eosinophil % 0.6 %; Hematocrit 33 % (42-52); Hemoglobin 11.4 g/dL (14.0-18.0); Lymphocyte % 18.6 %; Mean Corpuscular HGB Conc 34 g/dL (31-36); Mean Corpuscular Hemoglobin 30 pg (27-31); Mean Corpuscular Volume 88 fL (80-94); Mean Platelet Volume 9.5 fL (7.4-10.4); Nucleated Red Blood Cells % 0.1; Platelet Count 196 10^3/uL (150-450); Red Blood Count 3.81 10^6 /uL (4.18-5.48); Red Cell Distribution Width 14 % (10-15)
[2020-12-28] MEDS: Heparin 5000 UNITS/ML 1 mL VIAL SUBCUT SCH ×3 (05:56→20:28)
[2020-12-28 05:58] LABS: Anion Gap 9 mmol/L (2-11); BUN/Creatinine Ratio 27.8 (8-20); Blood Urea Nitrogen 35 mg/dL (6-24); CO2 Carbon Dioxide 19 mmol/L (22-32); Chloride 110 mmol/L (101-111); EGFR African American 65.4 (>60); Glucose 142 mg/dL (70-100); Potassium 4.2 mmol/L (3.5-5.0); Sodium 138 mmol/L (135-145)
[2020-12-28] MEDS: Mometasone/Formoter 200/5 MDI INH SCH ×2 (08:17→19:48)
[2020-12-28] MEDS: SPIRIVA Respimat (tiotropium) 2.5 mcg/inh Inhaler INH SCH (08:17)
[2020-12-28] MEDS: Aspirin EC 81 mg TAB.EC (enteric coated) PO SCH (08:33)
[2020-12-28] MEDS: Nystatin TOP POWDER 15 GM BTL TOPICAL SCH ×2 (08:34→20:28)
[2020-12-28] MEDS: cefTRIAXone 1 gm/50 mL NS BAG 1 GM/50 ML BAG IVPB SCH (08:45)
[2020-12-28 08:47] LABS: C Reactive Protein < 1.00 mg/L (<8.01)
[2020-12-28] MEDS: Insulin GLARGINE 100 un/ml 10 ml VIAL SUBCUT SCH (17:46)
[2020-12-28] MEDS: Senna TAB 8.6 mg TAB PO SCH (20:29)
[2020-12-29] MEDS: Heparin 5000 UNITS/ML 1 mL VIAL SUBCUT SCH ×2 (05:05→14:31)
[2020-12-29 06:17] LABS: ABS Eosinophils 0.1 10^3/ul (0-0.6); ABS Monocytes 0.7 10^3/ul (0-0.8); ABS Neutrophils 8.3 10^3/ul (1.5-7.7); Eosinophil % 0.6 %; Hematocrit 33 % (42-52); Hemoglobin 11.3 g/dL (14.0-18.0); Lymphocyte % 17.6 %; Mean Corpuscular HGB Conc 34 g/dL (31-36); Mean Corpuscular Hemoglobin 30 pg (27-31); Mean Corpuscular Volume 87 fL (80-94); Mean Platelet Volume 9.1 fL (7.4-10.4); Platelet Count 170 10^3/uL (150-450); Red Blood Count 3.79 10^6 /uL (4.18-5.48); Red Cell Distribution Width 14 % (10-15); White Blood Count 11.1 10^3/uL (3.5-10.8)
[2020-12-29 06:30] LABS: BUN/Creatinine Ratio 23.4 (8-20); Calcium 8.3 mg/dL (8.6-10.3); EGFR African American 66.6 (>60); Potassium 4.1 mmol/L (3.5-5.0)
[2020-12-29] MEDS: Mometasone/Formoter 200/5 MDI INH SCH ×2 (08:30→19:28)
[2020-12-29] MEDS: SPIRIVA Respimat (tiotropium) 2.5 mcg/inh Inhaler INH SCH (08:30)
[2020-12-29] MEDS: cefTRIAXone 1 gm/50 mL NS BAG 1 GM/50 ML BAG IVPB SCH (09:00)
[2020-12-29] MEDS: Aspirin EC 81 mg TAB.EC (enteric coated) PO SCH (09:06)
[2020-12-29] MEDS: Nystatin TOP POWDER 15 GM BTL TOPICAL SCH ×2 (09:08→20:13)
[2020-12-29] MEDS: Magnesium Hydroxide LIQ 30 ML UDC PO PRN (10:52)
[2020-12-29] MEDS: Insulin GLARGINE 100 un/ml 10 ml VIAL SUBCUT SCH (17:21)
[2020-12-29] MEDS: Senna TAB 8.6 mg TAB PO SCH (20:13)
[2020-12-30 06:01] LABS: ABS Eosinophils 0.1 10^3/ul (0-0.6); ABS Lymphocytes 2.2 10^3/ul (1.0-4.8); ABS Monocytes 0.7 10^3/ul (0-0.8); ABS Neutrophils 7.7 10^3/ul (1.5-7.7); Eosinophil % 1.3 %; Hematocrit 32 % (42-52); Hemoglobin 11.2 g/dL (14.0-18.0); Lymphocyte % 20.2 %; Mean Corpuscular HGB Conc 35 g/dL (31-36); Mean Corpuscular Hemoglobin 31 pg (27-31); Mean Corpuscular Volume 88 fL (80-94); Mean Platelet Volume 9.1 fL (7.4-10.4); Platelet Count 178 10^3/uL (150-450); Red Blood Count 3.65 10^6 /uL (4.18-5.48); Red Cell Distribution Width 14 % (10-15); White Blood Count 10.7 10^3/uL (3.5-10.8)
[2020-12-30 06:10] LABS: BUN/Creatinine Ratio 20.8 (8-20); Calcium 8.6 mg/dL (8.6-10.3); EGFR Non-African American 52.1 (>60); Magnesium 2.3 mg/dL (1.9-2.7); Potassium 4.6 mmol/L (3.5-5.0)
[2020-12-30] MEDS: Mometasone/Formoter 200/5 MDI INH SCH ×2 (07:53→19:24)
[2020-12-30] MEDS: SPIRIVA Respimat (tiotropium) 2.5 mcg/inh Inhaler INH SCH (07:53)
[2020-12-30] MEDS: Nystatin TOP POWDER 15 GM BTL TOPICAL SCH ×2 (09:57→22:18)
[2020-12-30] MEDS: cefTRIAXone 1 gm/50 mL NS BAG 1 GM/50 ML BAG IVPB SCH (09:57)
[2020-12-30] MEDS: Aspirin EC 81 mg TAB.EC (enteric coated) PO SCH (10:00)
[2020-12-30] MEDS: Magnesium Hydroxide LIQ 30 ML UDC PO PRN (10:02)
[2020-12-30] MEDS: Insulin GLARGINE 100 un/ml 10 ml VIAL SUBCUT SCH (17:46)
[2020-12-30] MEDS: Senna TAB 8.6 mg TAB PO SCH (22:06)
[2020-12-31] MEDS: Mometasone/Formoter 200/5 MDI INH SCH ×2 (07:20→19:00)
[2020-12-31] MEDS: SPIRIVA Respimat (tiotropium) 2.5 mcg/inh Inhaler INH SCH (07:20)
[2020-12-31] MEDS: Nystatin TOP POWDER 15 GM BTL TOPICAL SCH ×2 (08:48→21:30)
[2020-12-31] MEDS: Aspirin EC 81 mg TAB.EC (enteric coated) PO SCH (08:50)
[2020-12-31] MEDS: Insulin GLARGINE 100 un/ml 10 ml VIAL SUBCUT SCH (17:19)
[2020-12-31] MEDS: Senna TAB 8.6 mg TAB PO SCH (20:48)
[2021-01-01 06:41] LABS: ABS Basophils 0.1 10^3/ul (0-0.2); ABS Eosinophils 0.2 10^3/ul (0-0.6); ABS Lymphocytes 2.1 10^3/ul (1.0-4.8); ABS Monocytes 0.5 10^3/ul (0-0.8); ABS Neutrophils 4.4 10^3/ul (1.5-7.7); Hematocrit 33 % (42-52); Lymphocyte % 28.5 %; Mean Corpuscular HGB Conc 34 g/dL (31-36); Mean Corpuscular Hemoglobin 30 pg (27-31); Mean Corpuscular Volume 90 fL (80-94); Mean Platelet Volume 9.1 fL (7.4-10.4); Platelet Count 162 10^3/uL (150-450); Red Blood Count 3.66 10^6 /uL (4.18-5.48); Red Cell Distribution Width 14 % (10-15); White Blood Count 7.3 10^3/uL (3.5-10.8)
[2021-01-01 07:18] LABS: BUN/Creatinine Ratio 18.7 (8-20); Calcium 8.9 mg/dL (8.6-10.3); EGFR African American 60.9 (>60); EGFR Non-African American 50.3 (>60); Magnesium 2.1 mg/dL (1.9-2.7); Potassium 4.9 mmol/L (3.5-5.0)
[2021-01-01] MEDS: Aspirin EC 81 mg TAB.EC (enteric coated) PO SCH (08:27)
[2021-01-01] MEDS: Nystatin TOP POWDER 15 GM BTL TOPICAL SCH (08:30)
[2021-01-01] MEDS: SPIRIVA Respimat (tiotropium) 2.5 mcg/inh Inhaler INH SCH (08:34)
[2021-01-01] MEDS: Mometasone/Formoter 200/5 MDI INH SCH (08:35)
[2021-01-01 11:57] VITALS: BP 117/54
== END 2021-01-01 16:05 | DRG 190 ==
LOC: ED 17:31 → ICU 22:57 → SUATTDRO 22:57 → ICU 23:49 → MEDTELE 12-20 13:13
PROVIDERS: ADMIT Internal Medicine; ATTEND Radiology Diagnostic Radiology

== ENCOUNTER 2021-01-15 22:49 | Observation (INO) ==
[2021-01-16] MEDS ORDERED: Dextrose 50% Syringe 50 ml 25 GM/50 ML SYRINGE IV PUSH PRN (00:38)
[2021-01-16] MEDS ORDERED: Ondansetron 4 mg VIAL 2 MG/ML 2 ml VIAL IV PRN (00:38)
[2021-01-16 00:53] LABS: ABS Eosinophils 0.3 10^3/ul (0-0.6); ABS Lymphocytes 2.2 10^3/ul (1.0-4.8); ABS Monocytes 0.6 10^3/ul (0-0.8); ABS Neutrophils 2.6 10^3/ul (1.5-7.7); Eosinophil % 5.8 %; Hematocrit 35 % (42-52); Hemoglobin 11.9 g/dL (14.0-18.0); Lymphocyte % 38.1 %; Mean Corpuscular HGB Conc 34 g/dL (31-36); Mean Corpuscular Hemoglobin 29 pg (27-31); Mean Corpuscular Volume 86 fL (80-94); Mean Platelet Volume 7.6 fL (7.4-10.4); Nucleated Red Blood Cells % 0.1; Platelet Count 295 10^3/uL (150-450); Red Blood Count 4.05 10^6 /uL (4.18-5.48); Red Cell Distribution Width 14 % (10-15); White Blood Count 5.7 10^3/uL (3.5-10.8)
[2021-01-16] MEDS ORDERED: Albuterol 2.5mg/3 ml (0.083%) NEB.SOLN INH PRN (01:01)
[2021-01-16 01:11] LABS: BUN/Creatinine Ratio 17.4 (8-20); Calcium 9.9 mg/dL (8.6-10.3); EGFR African American 72.6 (>60); Potassium 4.4 mmol/L (3.5-5.0)
[2021-01-16] MEDS ORDERED: Albuterol HFA INHALER 8 gm MDI INH PRN (02:32)
[2021-01-16 05:41] LABS: ABS Basophils 0.1 10^3/ul (0-0.2); ABS Eosinophils 0.3 10^3/ul (0-0.6); ABS Lymphocytes 2.3 10^3/ul (1.0-4.8); ABS Monocytes 0.7 10^3/ul (0-0.8); ABS Neutrophils 3.1 10^3/ul (1.5-7.7); Hematocrit 33 % (42-52); Hemoglobin 11.2 g/dL (14.0-18.0); Lymphocyte % 35.4 %; Mean Corpuscular HGB Conc 34 g/dL (31-36); Mean Corpuscular Hemoglobin 29 pg (27-31); Mean Corpuscular Volume 87 fL (80-94); Mean Platelet Volume 7.9 fL (7.4-10.4); Platelet Count 287 10^3/uL (150-450); Red Blood Count 3.81 10^6 /uL (4.18-5.48); Red Cell Distribution Width 14 % (10-15); White Blood Count 6.5 10^3/uL (3.5-10.8)
[2021-01-16 05:56] LABS: BUN/Creatinine Ratio 17.5 (8-20); Calcium 9.8 mg/dL (8.6-10.3); EGFR African American 73.4 (>60); EGFR Non-African American 60.6 (>60); Potassium 4.5 mmol/L (3.5-5.0)
[2021-01-16] MEDS ORDERED: TETRACYCLINE 250 MG PO SCH (09:00)
[2021-01-16] MEDS: Mometasone/Formoter 200/5 MDI INH SCH ×3 (09:11→19:44)
[2021-01-16] MEDS ORDERED: Vancomycin per Pharmacy 1 EA NOTE FOLLOW UP SCH (11:00)
[2021-01-16] MEDS ORDERED: Vancomycin 1,250 MG in NS 0.9% 250 ml 250 ML IVPB ONE (11:30)
[2021-01-16] MEDS ORDERED: fentaNYL 100 mcg/2 ml 50 MCG/ML VIAL ONE (15:48)
[2021-01-16] MEDS ORDERED: Insulin GLARGINE 100 un/ml 10 ml VIAL SUBCUT SCH (17:00)
[2021-01-16] MEDS ORDERED: Senna TAB 8.6 mg TAB PO SCH (21:00)
[2021-01-17] MEDS: Mometasone/Formoter 200/5 MDI INH SCH (07:43)
[2021-01-17 10:50] VITALS: BP 105/50
[2021-01-17] MEDS ORDERED: Vancomycin 1,250 MG in NS 0.9% 250 ml 250 ML IVPB SCH (12:00)
[2021-01-19] MEDS ORDERED: Vancomycin Trough Check NOTE FOLLOW UP ONE (12:00)
== END 2021-01-17 13:40 ==
LOC: ED 22:49 → MED 22:49
PROVIDERS: ADMIT Internal Medicine; ATTEND Internal Medicine

== ENCOUNTER 2021-06-14 15:48 | Observation (INO) ==
[2021-06-14] MEDS ORDERED: NS 0.9% 500 ml BAG 500 ML IV ONE (20:24)
[2021-06-14 21:11] LABS: Hematocrit 39 % (42-52); Mean Corpuscular HGB Conc 34 g/dL (31-36); Mean Corpuscular Hemoglobin 28 pg (27-31); Mean Corpuscular Volume 84 fL (80-94); Mean Platelet Volume 8.1 fL (7.4-10.4); Platelet Count 242 10^3/uL (150-450); Red Cell Distribution Width 16 % (10-15); White Blood Count 7.3 10^3/uL (3.5-10.8)
[2021-06-14 21:33] LABS: Calcium 9.5 mg/dL (8.6-10.3); EGFR African American 73.4 (>60); EGFR Non-African American 60.6 (>60); Potassium 4.7 mmol/L (3.5-5.0)
[2021-06-15] MEDS ORDERED: Albuterol 2.5mg/3 ml (0.083%) NEB.SOLN INH ONE (00:07)
[2021-06-15] MEDS ORDERED: Albuterol 2.5mg/3 ml (0.083%) NEB.SOLN INH PRN (00:09)
[2021-06-15] MEDS ORDERED: Magnesium Hydroxide LIQ 30 ML UDC PO PRN (00:17)
[2021-06-15] MEDS ORDERED: Dextrose 50% Syringe 50 ml 25 GM/50 ML SYRINGE IV PUSH PRN (01:54)
[2021-06-15 02:18] LABS: Rapid COVID-19 Molecular Undetected (Undetected)
[2021-06-15 07:42] LABS: INR 1.06 (0.86-1.15)
[2021-06-15] MEDS ORDERED: Mometasone/Formoter 200/5 MDI INH SCH (09:00)
[2021-06-15] MEDS ORDERED: fentaNYL 100 mcg/2 ml 50 MCG/ML VIAL ONE (13:58)
[2021-06-15 16:48] VITALS: BP 153/71
[2021-06-15] MEDS ORDERED: Insulin GLARGINE 100 un/ml 10 ml VIAL SUBCUT SCH (17:00)
[2021-06-15] MEDS ORDERED: Senna TAB 8.6 mg TAB PO SCH (21:00)
== END 2021-06-15 16:28 | disposition home or self-care (01) ==
LOC: MEDTELE 15:48 → ED 15:48 → MEDTELE 06-15 06:23
PROVIDERS: ADMIT Hospitalist; ATTEND Hospitalist

== ENCOUNTER 2022-02-14 20:55 | Inpatient (IN) ==
[2022-02-14] MEDS ORDERED: NS 0.9% 1000 ml BAG 1,000 ML IV ONE (22:05)
[2022-02-14] MEDS ORDERED: cefTRIAXone 1 gm/50 mL D5W 1 GM/50 ML BAG IV ONE (22:06)
[2022-02-14 22:32] LABS: ABS Eosinophils 0.3 10^3/ul (0-0.6); ABS Lymphocytes 1.7 10^3/ul (1.0-4.8); ABS Monocytes 0.7 10^3/ul (0-0.8); ABS Neutrophils 4.1 10^3/ul (1.5-7.7); Eosinophil % 4.6 %; Hematocrit 33 % (42-52); Hemoglobin 11.4 g/dL (14.0-18.0); Mean Corpuscular HGB Conc 34 g/dL (31-36); Mean Corpuscular Hemoglobin 29 pg (27-31); Mean Corpuscular Volume 85 fL (80-94); Mean Platelet Volume 8.9 fL (7.4-10.4); Nucleated Red Blood Cells % 0.1; Platelet Count 190 10^3/uL (150-450); Red Blood Count 3.92 10^6 /uL (4.18-5.48); Red Cell Distribution Width 15 % (10-15); White Blood Count 6.9 10^3/uL (3.5-10.8)
[2022-02-14 22:40] LABS: Activated Partial Thrombo Time 28.7 seconds (26.0-38.0); INR 1.03 (0.86-1.15)
[2022-02-14 22:44] LABS: Urine Appearance Turbid; Urine Bilirubin Negative (Negative); Urine Blood Negative (Negative); Urine Color Amber; Urine Glucose 2+(150 mg/dL) (Negative); Urine Ketones Negative (Negative); Urine Nitrite Negative (Negative); Urine Protein 3+(>=500 mg/dL) (Negative); Urine Specific Gravity 1.019 (1.002-1.030); Urine Urobilinogen Negative (Negative)
[2022-02-14 22:51] LABS: Urine Bacteria 3+ (Absent); Urine Red Blood Cell 3+(>10/hpf) (Absent); Urine White Blood Cell 3+(>20/hpf) (Absent)
[2022-02-14 23:17] LABS: Albumin 3.4 g/dL (3.2-5.2); Albumin/Globulin Ratio 1.4 (1-3); C Reactive Protein 5.18 mg/L (<8.01); Calcium 9.6 mg/dL (8.6-10.3); Globulin 2.5 g/dL (2-4); Total Bilirubin 0.7 mg/dL (0.2-1.0); Total Protein 5.9 g/dL (6.4-8.9); eGFR CKD-EPI 48.9 (>60)
[2022-02-14 23:18] LABS: Potassium 5.4 mmol/L (3.5-5.0)
[2022-02-15 00:36] LABS: High Sensitivity Troponin 1 Hr 8 pg/mL (<20)
[2022-02-15] MEDS ORDERED: Albuterol HFA INHALER 8 gm MDI INH PRN (03:47)
[2022-02-15] MEDS ORDERED: Magnesium Hydroxide LIQ 30 ML UDC PO PRN (03:47)
[2022-02-15] MEDS ORDERED: Dextrose 50% Syringe 50 ml 25 GM/50 ML SYRINGE IV PUSH PRN (03:48)
[2022-02-15] MEDS ORDERED: Remdesivir 100 mg Vial 200 MG in NS 0.9% 250 ml 210 ML IV ONE (04:51)
[2022-02-15] MEDS ORDERED: Potassium Chlor 20 meq TAB.ER PO SCH (09:00)
[2022-02-15] MEDS: Heparin 5000 UNITS/ML 1 mL VIAL SUBCUT SCH ×2 (10:25→22:04)
[2022-02-15] MEDS: Nystatin TOP POWDER 15 GM BTL TOPICAL SCH ×2 (16:29→22:04)
[2022-02-15] MEDS: Insulin GLARGINE 100 un/ml 10 ml VIAL SUBCUT SCH (17:43)
[2022-02-15] MEDS: Senna TAB 8.6 mg TAB PO SCH (19:53)
[2022-02-15] MEDS: cefTRIAXone 1 gm/50 mL D5W 1 GM/50 ML BAG IV SCH (22:04)
[2022-02-16 06:07] LABS: ABS Eosinophils 0.4 10^3/ul (0-0.6); ABS Lymphocytes 2.1 10^3/ul (1.0-4.8); ABS Monocytes 0.6 10^3/ul (0-0.8); ABS Neutrophils 3.6 10^3/ul (1.5-7.7); Eosinophil % 5.5 %; Hematocrit 34 % (42-52); Hemoglobin 11.4 g/dL (14.0-18.0); Lymphocyte % 31.4 %; Mean Corpuscular HGB Conc 33 g/dL (31-36); Mean Corpuscular Hemoglobin 29 pg (27-31); Mean Corpuscular Volume 87 fL (80-94); Nucleated Red Blood Cells % 0.1; Platelet Count 199 10^3/uL (150-450); Red Blood Count 3.96 10^6 /uL (4.18-5.48); Red Cell Distribution Width 15 % (10-15); White Blood Count 6.7 10^3/uL (3.5-10.8)
[2022-02-16 06:31] LABS: Calcium 9.1 mg/dL (8.6-10.3); Potassium 4.4 mmol/L (3.5-5.0); eGFR CKD-EPI 56.7 (>60)
[2022-02-16] MEDS: Heparin 5000 UNITS/ML 1 mL VIAL SUBCUT SCH ×2 (08:23→20:07)
[2022-02-16] MEDS: Remdesivir 100 mg Vial 100 MG in NS 0.9% 250 ml 230 ML IV SCH (08:23)
[2022-02-16] MEDS: Nystatin TOP POWDER 15 GM BTL TOPICAL SCH ×3 (08:24→20:06)
[2022-02-16] MEDS: Insulin GLARGINE 100 un/ml 10 ml VIAL SUBCUT SCH (17:24)
[2022-02-16] MEDS: Senna TAB 8.6 mg TAB PO SCH (20:05)
[2022-02-16] MEDS: cefTRIAXone 1 gm/50 mL D5W 1 GM/50 ML BAG IV SCH (22:28)
[2022-02-17 06:15] LABS: ABS Eosinophils 0.3 10^3/ul (0-0.6); ABS Lymphocytes 1.9 10^3/ul (1.0-4.8); ABS Monocytes 0.6 10^3/ul (0-0.8); ABS Neutrophils 2.7 10^3/ul (1.5-7.7); Eosinophil % 4.9 %; Hematocrit 32 % (42-52); Hemoglobin 10.8 g/dL (14.0-18.0); Lymphocyte % 33.8 %; Mean Corpuscular HGB Conc 34 g/dL (31-36); Mean Corpuscular Hemoglobin 29 pg (27-31); Mean Corpuscular Volume 85 fL (80-94); Mean Platelet Volume 8.6 fL (7.4-10.4); Nucleated Red Blood Cells % 0.1; Platelet Count 170 10^3/uL (150-450); Red Blood Count 3.73 10^6 /uL (4.18-5.48); Red Cell Distribution Width 15 % (10-15); White Blood Count 5.6 10^3/uL (3.5-10.8)
[2022-02-17 06:42] LABS: C Reactive Protein 3.39 mg/L (<8.01); Calcium 8.7 mg/dL (8.6-10.3); Potassium 4.3 mmol/L (3.5-5.0); eGFR CKD-EPI 60.8 (>60)
[2022-02-17] MEDS: Nystatin TOP POWDER 15 GM BTL TOPICAL SCH ×3 (08:39→21:44)
[2022-02-17] MEDS: Heparin 5000 UNITS/ML 1 mL VIAL SUBCUT SCH ×2 (08:39→21:48)
[2022-02-17] MEDS: Remdesivir 100 mg Vial 100 MG in NS 0.9% 250 ml 230 ML IV SCH (09:29)
[2022-02-17] MEDS ORDERED: Dextrose 50% Syringe 50 ml 25 GM/50 ML SYRINGE IV PUSH PRN (14:38)
[2022-02-17] MEDS: Insulin GLARGINE 100 un/ml 10 ml VIAL SUBCUT SCH (17:58)
[2022-02-17] MEDS: Senna TAB 8.6 mg TAB PO SCH (21:43)
[2022-02-17] MEDS: cefTRIAXone 1 gm/50 mL D5W 1 GM/50 ML BAG IV SCH (21:46)
[2022-02-18 08:25] LABS: ABS Eosinophils 0.3 10^3/ul (0-0.6); ABS Lymphocytes 1.8 10^3/ul (1.0-4.8); ABS Monocytes 0.6 10^3/ul (0-0.8); ABS Neutrophils 2.8 10^3/ul (1.5-7.7); Eosinophil % 6.1 %; Hematocrit 33 % (42-52); Hemoglobin 11.2 g/dL (14.0-18.0); Lymphocyte % 32.6 %; Mean Corpuscular HGB Conc 34 g/dL (31-36); Mean Corpuscular Hemoglobin 29 pg (27-31); Mean Corpuscular Volume 85 fL (80-94); Mean Platelet Volume 8.3 fL (7.4-10.4); Nucleated Red Blood Cells % 0.2; Platelet Count 178 10^3/uL (150-450); Red Blood Count 3.89 10^6 /uL (4.18-5.48); Red Cell Distribution Width 15 % (10-15); White Blood Count 5.5 10^3/uL (3.5-10.8)
[2022-02-18 08:52] LABS: Magnesium 1.7 mg/dL (1.9-2.7); Potassium 4.5 mmol/L (3.5-5.0); eGFR CKD-EPI 55.6 (>60)
[2022-02-18] MEDS: Heparin 5000 UNITS/ML 1 mL VIAL SUBCUT SCH ×2 (09:36→20:22)
[2022-02-18] MEDS: Remdesivir 100 mg Vial 100 MG in NS 0.9% 250 ml 230 ML IV SCH (09:37)
[2022-02-18] MEDS: Nystatin TOP POWDER 15 GM BTL TOPICAL SCH ×3 (09:48→20:24)
[2022-02-18] MEDS ORDERED: Magnesium Sulfate 2 gm BAG 2 GM/50 ML BAG IVPB ONE (15:50)
[2022-02-18] MEDS: Insulin GLARGINE 100 un/ml 10 ml VIAL SUBCUT SCH (18:11)
[2022-02-18] MEDS: Senna TAB 8.6 mg TAB PO SCH (20:24)
[2022-02-18] MEDS: cefTRIAXone 1 gm/50 mL D5W 1 GM/50 ML BAG IV SCH (23:05)
[2022-02-19 06:30] LABS: Calcium 8.8 mg/dL (8.6-10.3); Magnesium 2.2 mg/dL (1.9-2.7); Potassium 4.5 mmol/L (3.5-5.0); eGFR CKD-EPI 60.2 (>60)
[2022-02-19] MEDS: Heparin 5000 UNITS/ML 1 mL VIAL SUBCUT SCH ×2 (09:03→20:51)
[2022-02-19] MEDS: Nystatin TOP POWDER 15 GM BTL TOPICAL SCH ×3 (09:03→20:58)
[2022-02-19] MEDS: Insulin GLARGINE 100 un/ml 10 ml VIAL SUBCUT SCH (17:45)
[2022-02-19] MEDS: Senna TAB 8.6 mg TAB PO SCH (20:53)
[2022-02-19] MEDS: cefTRIAXone 1 gm/50 mL D5W 1 GM/50 ML BAG IV SCH (22:26)
[2022-02-20 05:25] LABS: Calcium 8.9 mg/dL (8.6-10.3); Magnesium 2.1 mg/dL (1.9-2.7); Potassium 4.5 mmol/L (3.5-5.0)
[2022-02-20] MEDS: Heparin 5000 UNITS/ML 1 mL VIAL SUBCUT SCH ×2 (09:05→20:12)
[2022-02-20] MEDS: Nystatin TOP POWDER 15 GM BTL TOPICAL SCH ×3 (09:05→20:10)
[2022-02-20] MEDS: Insulin GLARGINE 100 un/ml 10 ml VIAL SUBCUT SCH (18:16)
[2022-02-20] MEDS: Senna TAB 8.6 mg TAB PO SCH (20:18)
[2022-02-20] MEDS: cefTRIAXone 1 gm/50 mL D5W 1 GM/50 ML BAG IV SCH (22:46)
[2022-02-21 06:05] LABS: Magnesium 2.2 mg/dL (1.9-2.7); Potassium 4.8 mmol/L (3.5-5.0); eGFR CKD-EPI 60.8 (>60)
[2022-02-21] MEDS: Heparin 5000 UNITS/ML 1 mL VIAL SUBCUT SCH ×2 (08:51→21:29)
[2022-02-21] MEDS: Nystatin TOP POWDER 15 GM BTL TOPICAL SCH ×3 (08:53→21:31)
[2022-02-21] MEDS: Insulin GLARGINE 100 un/ml 10 ml VIAL SUBCUT SCH (17:40)
[2022-02-21] MEDS: Senna TAB 8.6 mg TAB PO SCH (21:37)
[2022-02-21] MEDS: cefTRIAXone 1 gm/50 mL D5W 1 GM/50 ML BAG IV SCH (23:21)
[2022-02-22] MEDS ORDERED: Lactated Ringers 1000 ml BAG 1,000 ML IV SCH (09:00)
[2022-02-22] MEDS: Heparin 5000 UNITS/ML 1 mL VIAL SUBCUT SCH ×2 (10:00→21:21)
[2022-02-22] MEDS: Nystatin TOP POWDER 15 GM BTL TOPICAL SCH ×3 (10:00→21:23)
[2022-02-22] MEDS: Insulin GLARGINE 100 un/ml 10 ml VIAL SUBCUT SCH (17:37)
[2022-02-22] MEDS: Senna TAB 8.6 mg TAB PO SCH (21:23)
[2022-02-22] MEDS: cefTRIAXone 1 gm/50 mL D5W 1 GM/50 ML BAG IV SCH (23:37)
[2022-02-23] MEDS: Heparin 5000 UNITS/ML 1 mL VIAL SUBCUT SCH ×2 (09:55→21:20)
[2022-02-23] MEDS: Nystatin TOP POWDER 15 GM BTL TOPICAL SCH ×3 (09:56→21:21)
[2022-02-23] MEDS: Insulin GLARGINE 100 un/ml 10 ml VIAL SUBCUT SCH (17:18)
[2022-02-23] MEDS: Senna TAB 8.6 mg TAB PO SCH (21:20)
[2022-02-23] MEDS: cefTRIAXone 1 gm/50 mL D5W 1 GM/50 ML BAG IV SCH (22:34)
[2022-02-24] MEDS: Heparin 5000 UNITS/ML 1 mL VIAL SUBCUT SCH ×2 (08:36→21:08)
[2022-02-24] MEDS: Nystatin TOP POWDER 15 GM BTL TOPICAL SCH ×3 (08:37→21:08)
[2022-02-24] MEDS: Insulin GLARGINE 100 un/ml 10 ml VIAL SUBCUT SCH (17:43)
[2022-02-24] MEDS: Senna TAB 8.6 mg TAB PO SCH (21:08)
[2022-02-24] MEDS: cefTRIAXone 1 gm/50 mL D5W 1 GM/50 ML BAG IV SCH (23:55)
[2022-02-25 05:04] LABS: ABS Eosinophils 0.4 10^3/ul (0-0.6); ABS Lymphocytes 2.1 10^3/ul (1.0-4.8); ABS Monocytes 0.6 10^3/ul (0-0.8); ABS Neutrophils 3.1 10^3/ul (1.5-7.7); Eosinophil % 5.7 %; Hematocrit 34 % (42-52); Hemoglobin 11.3 g/dL (14.0-18.0); Lymphocyte % 34.2 %; Mean Corpuscular HGB Conc 33 g/dL (31-36); Mean Corpuscular Hemoglobin 29 pg (27-31); Mean Corpuscular Volume 88 fL (80-94); Mean Platelet Volume 8.7 fL (7.4-10.4); Platelet Count 187 10^3/uL (150-450); Red Cell Distribution Width 16 % (10-15); White Blood Count 6.2 10^3/uL (3.5-10.8)
[2022-02-25 05:32] LABS: Albumin 3.5 g/dL (3.2-5.2); Albumin/Globulin Ratio 1.7 (1-3); Globulin 2.1 g/dL (2-4); Total Bilirubin 0.6 mg/dL (0.2-1.0); Total Protein 5.6 g/dL (6.4-8.9)
[2022-02-25 05:46] LABS: TSH Ultra Thyroid Stim Horm 3.07 mcIU/mL (0.34-5.60)
[2022-02-25] MEDS: Heparin 5000 UNITS/ML 1 mL VIAL SUBCUT SCH ×2 (08:32→20:11)
[2022-02-25] MEDS: Nystatin TOP POWDER 15 GM BTL TOPICAL SCH ×3 (08:33→20:11)
[2022-02-25] MEDS: Insulin GLARGINE 100 un/ml 10 ml VIAL SUBCUT SCH (17:28)
[2022-02-25] MEDS: Senna TAB 8.6 mg TAB PO SCH (20:10)
[2022-02-26] MEDS: Heparin 5000 UNITS/ML 1 mL VIAL SUBCUT SCH (08:25)
[2022-02-26] MEDS: Nystatin TOP POWDER 15 GM BTL TOPICAL SCH (08:27)
[2022-02-26 11:51] VITALS: BP 130/60
== END 2022-02-26 13:00 | DRG 698 ==
LOC: ED 20:55 → MED 02-15 03:46 → SUATTDRO 02-15 03:46 → MED 02-15 08:55
PROVIDERS: ADMIT Student in an Organized Health Care Education/Training Program; ATTEND Internal Medicine